=== PATIENT | male | born 2000 | race Caucasian/White ===

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

== ENCOUNTER 2024-07-02 10:00 | Outpatient (AMB) | payer BC, MEDICAID, SELFPAY ==
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
== END 2024-07-03 09:31 | disposition home or self-care (01) ==
LOC: HO.HOP 10:18
PROVIDERS: PCP Pediatrics Adolescent Medicine; Visit Provider Counselor Mental Health
DX: F41.1 Generalized anxiety disorder (principal); F33.1 Major depressive disorder, recurrent, moderate; F43.9 Reaction to severe stress, unspecified
CPT/HCPCS: 90791

== ENCOUNTER → 2024-07-02 10:00 | Outpatient (BNVA) | payer BC, MEDICAID, SELFPAY | PROVIDERS: PCP Pediatrics Adolescent Medicine; Visit Provider Counselor Mental Health ==

== ENCOUNTER → 2024-07-09 11:07 | Outpatient (BNVA) | payer BC, MEDICAID, SELFPAY | PROVIDERS: PCP Pediatrics Adolescent Medicine; Visit Provider Counselor Mental Health ==

== ENCOUNTER → 2024-07-09 11:07 | Outpatient (AMB) | payer BC, MEDICAID, SELFPAY ==
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
== END ==
LOC: HO.HOP 11:07
PROVIDERS: PCP Pediatrics Adolescent Medicine; Visit Provider Counselor Mental Health
DX: F41.1 Generalized anxiety disorder (principal); F33.1 Major depressive disorder, recurrent, moderate; F43.9 Reaction to severe stress, unspecified
CPT/HCPCS: 90837

== ENCOUNTER → 2024-07-11 13:07 | Outpatient (BNVA) | payer BC, MEDICAID, SELFPAY | PROVIDERS: PCP Pediatrics Adolescent Medicine; Visit Provider Counselor Mental Health ==

== ENCOUNTER → 2024-07-11 13:07 | Outpatient (AMB) | payer BC, MEDICAID, SELFPAY ==
--- NOTE | 2024-07-11 13:10 | MHC.WMTHER ---
Intake Intake Visit Reasons: VIDEO OP Therapy Allergies No Known Allergies Allergy (Verified 08/20/21 23:07) [facility] Medical History (Updated 07/03/24 @ 09:29 by Dasha Kessler [facility]) HIV (human immunodeficiency virus infection) Behavioral Health Assessment Weight Management Therapy Therapy Notes Details session Date: 07/11/2024 at 1pm. Service: [id number] Start: 1:00pm. End time: 2:00pm. Subjective Casper presents feeling hopeless about ongoing pain issues and tension at home. Reported he has been trying to prioritize sleeping but has not been possible. Objective PT presents for a counseling session via Telehealth. Patient communicated this morning he was in need for a sooner visit and he was assigned for a sooner visit today. Interventions: Discussed overall functioning. Exploration of feelings and dynamics in household. Processed triggers. Identified negative self-talk mediating symptoms. Completed a gratitude exercise Reflective listening and cognitive challenging/reframing utilized. Developed a coping plan for the weekend targeting increase anxiety due to pain and depressive Sx Assessment/progress Casper was alert, open and engaged.Noted depressed mood and low motivation. Denies any SI and or any other safety concern. He continues being a good advocate for his needs and has asked for support to his father. Plan: Continue with weekly sessions, and provide an additional session at week as needed. Assessment & Plan Assessment & Plan (1) Generalized anxiety disorder: Code(s): F41.1 - Generalized anxiety disorder (2) Major depressive disorder, recurrent episode: Code(s): F33.9 - Major depressive disorder, recurrent, unspecified Qualifiers: Major depression episode severity: moderate Qualified Code(s): F33.1 - Major depressive disorder, recurrent, moderate (3) Trauma and stressor-related disorder: Code(s): F43.9 - Reaction to severe stress, unspecified Plan Next varsha: 07/16/2024 at 11am via telehealth. Telehealth Telehealth Telehealth Platform: [facility] Location of provider rendering services: other ([address], [place], [place]) Location of patient: address on file Patient Identification confirmed using: Name, : Yes Telehealth method: video Patient verbally consented to treatment: Yes Patient verbally consented to billing insurance company: Yes Patient informed of any privacy concerns related to visit: No Minutes spent on Phone/Video with Pt.: 60 Coding Level of Care Code Established Pt Tele Psytx >53 mins ([id number]) Patient Type Established Diagnoses Generalized anxiety disorder F41.1 Moderate episode of recurrent major depressive disorder F33.1 Major depression episode severity: moderate Trauma and stressor-related disorder F43.9 Time Spent (min) 60
== END ==
LOC: HO.HOP 13:07
PROVIDERS: PCP Pediatrics Adolescent Medicine; Visit Provider Counselor Mental Health
DX: F41.1 Generalized anxiety disorder (principal); F33.1 Major depressive disorder, recurrent, moderate; F43.9 Reaction to severe stress, unspecified
CPT/HCPCS: 90837

== ENCOUNTER 2024-07-12 23:18 | Emergency (ER) | payer BC, MEDICAID, SELFPAY ==
--- NOTE | ~2024-07-12 | US_ITS ---
EXAMINATION: US SCROTUM CLINICAL INFORMATION: Pain.. COMPARISON: None available. TECHNIQUE: A sonogram of the scrotum was performed assessing hagan-scale appearance and color Doppler flow. Spectral Doppler analysis of the arterial and venous flow were performed in the testes bilaterally. FINDINGS: RIGHT: Right testicle measures 4.7 x 1.7 x 2.7 cm, volume 11.8 mL. No focal testicular parenchymal lesions are visualized. Spectral Doppler analysis of the arterial and venous flow is normal in the right testis. Right epididymal head is normal in size. No right hydrocele or varicocele is seen. Right epididymal Doppler flow is normal. LEFT: Left testicle measures 4.2 x 2.1 x 2.8 cm, volume 13.3 mL. No focal testicular parenchymal lesions are visualized. Spectral Doppler analysis of the arterial and venous flow is normal in the left testis. There is a 4 mm left epididymal head cyst. No left hydrocele or varicocele is seen. Left epididymal Doppler flow is normal. US/US scrotum IMPRESSION: 1. No evidence of testicular torsion. 2. 4 mm left epididymal head cyst. Electronically signed by: Darrcik Kumar MD 07/13/2024 03:06 AM EDT
--- NOTE | ~2024-07-12 | US_ITS ---
EXAMINATION: US SCROTUM CLINICAL INFORMATION: Pain.. COMPARISON: None available. TECHNIQUE: A sonogram of the scrotum was performed assessing hagan-scale appearance and color Doppler flow. Spectral Doppler analysis of the arterial and venous flow were performed in the testes bilaterally. FINDINGS: RIGHT: Right testicle measures 4.7 x 1.7 x 2.7 cm, volume 11.8 mL. No focal testicular parenchymal lesions are visualized. Spectral Doppler analysis of the arterial and venous flow is normal in the right testis. Right epididymal head is normal in size. No right hydrocele or varicocele is seen. Right epididymal Doppler flow is normal. LEFT: Left testicle measures 4.2 x 2.1 x 2.8 cm, volume 13.3 mL. No focal testicular parenchymal lesions are visualized. Spectral Doppler analysis of the arterial and venous flow is normal in the left testis. There is a 4 mm left epididymal head cyst. No left hydrocele or varicocele is seen. Left epididymal Doppler flow is normal. US/US scrotum doppler IMPRESSION: 1. No evidence of testicular torsion. 2. 4 mm left epididymal head cyst. Electronically signed by: Darrick Kumar MD 07/13/2024 03:06 AM EDT
[2024-07-12 23:24] VITALS: BP 136/88; PULSE 102; RESP 20; TEMP 36.2; O2SAT 97; BMI 25.7
[2024-07-13] MEDS: Ketorolac Tromethamine 30 MG/ML VIAL IM (00:40)
--- NOTE | 2024-07-13 01:01 | ED.MALEGU ---
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 Patient states that he has essentially had chronic scrotal/testicular pain for several years. He follows with Dr. Kalen Brand for Urology at [facility]. Patient states that he has had increased scrotal pain for the last 3 weeks He reports that sometimes his scrotum appears red but other times it seems normal He occasionally has symptoms consistent with a UTI with urinary frequency and burning with urination Patient states that his pain radiates down into his legs and occasionally up into his abdomen but he does not currently have any abdominal or bladder pain Denies any fevers or chills Denies any urethral discharge He reports he has not had any imaging for at least a few years Related Data Allergies Allergy/AdvReac Type Severity Reaction Status Date / Time ciclopirox Allergy Rash Verified 07/12/24 23:27 Review of Systems Constitutional: Constitutional: Denies body ache(s), Denies chills and Denies fever(s) Eyes: Eyes: Denies blurry vision Cardiovascular: Cardiovascular: Denies chest pain and Denies dyspnea Respiratory: Respiratory: Denies dyspnea Gastrointestinal: Gastrointestinal: Denies abdominal pain, Reports nausea and Reports vomiting Genitourinary: Genitourinary: Denies hematuria, Reports genital pain, Reports dysuria, Reports scrotal swelling and Reports other (Scrotal pain) Musculoskeletal: Musculoskeletal: Denies back pain [facility] Past Medical History Medical History (Updated 07/13/24 @ 03:14 by Oumou Fisher MD) HIV (human immunodeficiency virus infection) Social History Social History Advance Directives: No Advance Directives Information Provided: Yes Do you have a plan to hurt others: No Plan Physical Exam Vital Signs: Vital Signs: Last Vital Signs Temp 98.6 F 07/13/24 02:22 Pulse 83 07/13/24 02:22 Resp 16 07/13/24 02:22 BP 123/85 07/13/24 02:22 Pulse Ox 96 08/31/24 02:22 O2 Del Method Room Air 07/13/24 02:22 BMI result Body Mass Index 25.7 Const: General: healthy appearing, comfortable, no acute distress, alert and awake Nutritional Appearance: well nourished Orientation/consciousness: patient oriented x3 HEENT: Head: Yes normocephalic and Yes atraumatic Eyes: Eyelids: Yes eyelids normal Conjunctivae: conjunctivae normal Sclerae: sclerae normal Corneas: corneas normal Pupils: Equal, round and reactive pupils present EOM: EOMs intact bilaterally Neck: Neck: Yes full ROM Resp: Effort & Inspection: normal respiratory effort, able to speak in complete sentences and not labored : Other: Unremarkable circumcised male phallus. There is no apparent scrotal lesions, color change or scrotal edema. Subjective tenderness to palpation of the scrotum bilaterally, no palpable testicular masses. No urethral discharge Skin: General skin exam: elasticity normal Neuro: General: patient oriented x3 Cranial nerves: Yes Equal, round and reactive pupils present and Yes Bilaterally intact EOM present Cognition (Neuro): normal cognition Medications Administered Discontinued Medications Generic Name Dose Route Start Last Admin Trade Name Freq PRN Reason Stop Dose Admin Ketorolac Tromethamine 30 mg 07/13/24 00:22 07/13/24 00:40 Ketorolac Tromethamine 30 Mg/Ml Vial IM 07/13/24 00:23 30 mg ONCE ONE Administration Morphine Sulfate 4 mg 07/13/24 01:12 07/13/24 02:04 Morphine Sulfate 4 Mg/Ml Cartridge IM 07/13/24 01:13 4 mg ONCE ONE Administration Protocol Ondansetron HCl 4 mg 07/13/24 01:12 07/13/24 02:04 Ondansetron Odt 4 Mg Tab.Rapdis TRANSLINGU 07/13/24 01:13 4 mg ONCE ONE Administration Medical Decision Making Medical Decision Making MDM Narrative: 23-year-old male with a 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 He reports associated UTI symptoms. Denies any abdominal pain or flank pain. We will get an ultrasound of the scrotum to rule out testicular torsion. I do not see any indication for labs at this time. We will treat the patient's pain with Toradol IM -I received sign-out from my colleague PA O'Darrell. -ultrasound does not show epididymitis or torsion, patient has a small cyst. -urinalysis negative for UTI -patient is saying that it Toradol and the morphine did not work, requesting more pain medication. Patient given p.o. oxycodone -patient may follow-up with his urologist Differential Diagnosis Differential Diagnoses: The differential diagnosis associated with the presentation includes Red scrotum syndrome Testicular torsion Epididymitis UTI Lab Data Labs: Lab Results 07/13/24 Range/Units 02:19 Urine Color Dark Yellow Urine Appearance Clear Urine pH 6.5 (5.0-9.0) Ur Specific [place] >= 1.030 H (1.005-1.025) Urine Protein Trace (Neg-Trace) mg/dL Urine Glucose (UA) Negative (Negative) mg/dL Urine Ketones Trace (Negative) mg/dL Urine Blood Negative (Negative) Urine Nitrite Negative (Negative) Ur Leukocyte Esterase Negative (Negative) Urine RBC 0-2 (0-2) /HPF Urine WBC 0-5 (0-5) /HPF Ur Squamous Epith Cells 0-2 (0-2) /HPF Urine Bacteria None Seen (None Seen) Hyaline Casts 0-2 (0-2) /LPF Radiology Impression Discussion of test interpretation with radiology: I have reviewed the radiologist's reading. Radiologist Impression: RIGHT: Right testicle measures 4.7 x 1.7 x 2.7 cm, volume 11.8 mL. No focal testicular parenchymal lesions are visualized. Spectral Doppler analysis of the arterial and venous flow is normal in the right testis. Right epididymal head is normal in size. No right hydrocele or varicocele is seen. Right epididymal Doppler flow is normal. LEFT: Left testicle measures 4.2 x 2.1 x 2.8 cm, volume 13.3 mL. No focal testicular parenchymal lesions are visualized. Spectral Doppler analysis of the arterial and venous flow is normal in the left testis. There is a 4 mm left epididymal head cyst. No left hydrocele or varicocele is seen. Left epididymal Doppler flow is normal. US/US scrotum IMPRESSION: 1. No evidence of testicular torsion. 2. 4 mm left epididymal head cyst. Discharge Plan Discharge Clinical Impression: Cyst of epididymis Patient Disposition: Home, Self-Care Instructions: Testicle Pain (ED) Additional Instructions: Please follow-up with your primary care physician tomorrow. If you have any worsening or new symptoms, please return to the emergency room or call 911 Print Language: Slovenian
[2024-07-13] MEDS: Morphine Sulfate 4 MG/ML CARTRIDGE IM (02:04)
[2024-07-13] MEDS: Ondansetron ODT 4 MG TAB.RAPDIS TRANSLINGU (02:04)
[2024-07-13 02:22] VITALS: BP 123/85; PULSE 83; RESP 16; TEMP 37; O2SAT 96
[2024-07-13 02:27] LABS: Appearance Urine Clear; Color Urine Dark Yellow; Glucose Urine UA Negative (Negative); Leukocyte Esterase Urine Negative (Negative); Nitrite Urine Negative (Negative); PH 6.5 (5.0-9.0); Specific Gravity - Urine >= 1.030 (1.005-1.025); Urine Blood Negative (Negative); Urine Ketones Trace mg/dL (Negative); Urine Protein Trace mg/dL (Neg-Trace)
[2024-07-13 02:30] LABS: Bacteria Urine None Seen (None Seen); Hyaline Casts Urine 0-2 /LPF (0-2); RBC Urine 0-2 /HPF (0-2); Squamous Epithelial Cell Urine 0-2 /HPF (0-2); WBC Urine 0-5 /HPF (0-5)
--- NOTE | 2024-07-13 03:12 | PC.NURSE ---
pt states no relief with morphine given per jan. reports pain increased to 7/10. MD aware.
[2024-07-13] MEDS: oxyCODONE HCl Immed Release 5 MG TABLET PO (03:19)
[2024-07-13 03:23] VITALS: BP 123/85; PULSE 83; RESP 16; TEMP 37; O2SAT 96
[2024-07-13 03:54] LABS: CT PCR NOT DETECTED (Not Detect.); NG PCR NOT DETECTED (Not Detect.)
== END 2024-07-13 03:23 | disposition home or self-care (01) ==
PROVIDERS: Physician Assistant; Emergency Provider Emergency Medicine Emergency Medical Services; PCP Pediatrics Adolescent Medicine
DX: N50.3 Cyst of epididymis (principal); N50.82 Scrotal pain; B20 Human immunodeficiency virus [HIV] disease
CPT/HCPCS: 76870; 81001; 87491; 87591; 93975; 96372; 99284; J1885; J2270

== ENCOUNTER → 2024-07-16 11:45 | Outpatient (BNVA) | payer BC, MEDICAID, SELFPAY | PROVIDERS: PCP Pediatrics Adolescent Medicine; Visit Provider Counselor Mental Health ==

== ENCOUNTER 2024-07-16 15:08 | Outpatient (AMB) | payer BC, MEDICAID, SELFPAY ==
--- NOTE | 2024-07-16 15:09 | MHC.OFFVIS ---
Vital Signs 07/16/24 15:17 Height 5 ft 9 in Weight 171 lb 8 oz BMI 25.3 BP 137/80 Blood Pressure Location Lt brachial Position Sitting Respiration 16 Pulse 110 H Pulse Source Pulse Oximeter Pulse Oximetry (%) 96 Oxygen Delivery Method Room Air Intake Visit Reasons: Testicular pain Intake Note: Patient comes in for initial visit. Communication And Outreach Manager: Communication And Outreach Manager Present Accompanied by: Mother Allergies ciclopirox Allergy (Verified 07/16/24 15:46) Rash HPI HPI Testicular pain: Details: Patient is a 23-year-old male with chronic pelvic pain since 2020, presents today for initial evaluation of scrotal pain that has been present since spring. Patient denies any past or recent trauma, injury, or falls. He reports history of right scrotal syndrome and UTI like symptoms with neuropathic pain in his legs and feet as well as his perineal area, especially his left scrotum. Pain is most severe in the evenings which he rates 8/10 in list severe upon waking up, rating it at 3/10. Patient describes his present pain as pulsating, jumping, flushing, shooting, stabbing, cutting, lacerating, pinching, burning, tingling, stinging, tiring, exhausting, sickening, fearful, terrifying, frightful, punishing, radiating and spreading. He was seen at our ER last Monday with negative urinalysis for UTI. Recent scrotum US showed no evidence of testicular torsion and 4 mm left epididymal head cyst. Patient follows with Dr. Rigo Brand for Urology at [facility] for chronic scrotal and testicular pain for several years. Patient reports his scrotum, especially left side appears to be mildly red and tender but at times it seems normal. Patient has tried Toradol, morphine, ketorolac, oxycodone, gabapentin, doxycycline, ketoconazole 2% topical and Zeasorb antifungal powder and was recently started on indomethacin without significant symptom improvement. Patient reports gabapentin has been ineffective at 600 mg t.i.d. and is willing to try pregabalin. Patient is currently undergoing mental health therapy and counseling for anxiety, major depression and PTSD. He is also taking trazodone and duloxetine. Denies recent vaccination, reports his immunizations are up to date. Pain affects his daily activities and functioning, mood, sleep, social interactions and quality of life. Reports sexual dysfunction for the past 8 months due to current symptoms. Patient denies any fever or chills, abdominal or groin pain, urethral or rectal discharge, hematuria, dysuria, back pain, dyspnea, shortness of breath, bladder or bowel dysfunction or saddle anesthesia. Patient reports rare use of alcohol only on special occasions, caffeinated drinks once every 2 weeks and daily medical marijuana for sleep in pain. Denies any illicit substance use. Location: Pelvic pain, left scrotum and testicular pain Duration: Chronic pelvic pain Spring 2020; scrotal Spring 2023 Characteristics of symptom or complaint: Burning, stabbing, tingling, numbness, pulsing, shooting, pinching, radiate Aggravating or associated factors: Heat/cold application, movements, stress Relieving factors: Tried gabapentin, cymbalta, oxycodone, ketorolac, morphine, indomethacin Treatment: Multiple ER, Urology and PCP evals, US scrotum, pelvic PT, cystoscopy, [facility] Medical History (Updated 07/16/24 @ 15:56 by CICI Scott) Chronic pelvic pain in male Cyst of epididymis Testicular pain, left Scrotal pain Trauma and stressor-related disorder Major depressive disorder, recurrent episode Generalized anxiety disorder HIV (human immunodeficiency virus infection) Social History (Updated 07/17/24 @ 07:52 by CICI Scott) Comment: Alcohol occasional Substance Use Type: Marijuana Sexual orientation: Lesbian/Saenz/Homosexual Gender identity: Male Review of Systems Const All systems reviewed & are unremarkable except as noted in HPI and below Physical Exam Vital Signs: Last Vital Signs Pulse 110 H 07/16/24 15:17 Resp 16 07/16/24 15:17 BP 137/80 07/16/24 15:17 Pulse Ox 96 07/16/24 15:17 Oxygen Delivery Method Room Air 07/16/24 15:17 BMI result Body Mass Index 25.3 General: Appears afebrile. No acute distress. Alert and oriented. Mood and affect appropriate. Follows and participates in conversation appropriately. Respiratory effort is unlabored. No cough. Able to transition from sit to stand unassisted. Ambulates with bilaterally normal heel strike and toe off. General: Yes no CVA tenderness Male General Exam: Yes normal external exam, No ecchymosis, No edema, No erythema, No lacerations, No Genital lesions present and Yes tenderness (subjective TTP bilateral scrotum with mild left testicular hypertrophy) Penis: normal penis, circumcised, no ecchymosis, not edematous, no nodules, no swelling, no ulcerations and No Genital lesions present Meatus: no meatla discharge Scrotum: scrotum normal, no ecchymosis, not erythematous, no masses and no scrotal swelling Back/Spine/Pelvis Back: no CVA tenderness Cervical Spine: cervical ROM normal and No Cervical spine tenderness Thoracic/Lumbar Spine: thoracic and lumbar spine normal to inspection, thoraco-lumbar ROM normal, Lasegue's sign negative, straight leg raise negative bilaterally and No lumbar spinal tenderness Pelvis: no buttock tenderness Neuro General: Normal light touch and pain sensation, no focal motor deficits and CN's II-XI intact bilaterally Cognition (Neuro): normal cognition Gait exam (Neuro): Normal gait present Motor exam (neuro): 5/5 motor strength present throughout, no tremor noted and Motor abnormalities not present Sensory Exam: double simultaneous stimulation for sensation normal Results Reviewed Results Reviewed: US SCROTUM 07/13/24 CLINICAL INFORMATION: Pain.. FINDINGS: RIGHT: Right testicle measures 4.7 x 1.7 x 2.7 cm, volume 11.8 mL. No focal testicular parenchymal lesions are visualized. Spectral Doppler analysis of the arterial and venous flow is normal in the right testis. Right epididymal head is normal in size. No right hydrocele or varicocele is seen. Right epididymal Doppler flow is normal. LEFT: Left testicle measures 4.2 x 2.1 x 2.8 cm, volume 13.3 mL. No focal testicular parenchymal lesions are visualized. Spectral Doppler analysis of the arterial and venous flow is normal in the left testis. There is a 4 mm left epididymal head cyst. No left hydrocele or varicocele is seen. Left epididymal Doppler flow is normal. IMPRESSION: 1. No evidence of testicular torsion. 2. 4 mm left epididymal head cyst. Assessment & Plan Assessment & Plan (1) Peripheral neuropathy: Code(s): G62.9 - Polyneuropathy, unspecified Category: Medical (2) Cyst of epididymis: Code(s): N50.3 - Cyst of epididymis Category: Medical (3) Scrotal pain: Code(s): N50.82 - Scrotal pain Category: Medical (4) Testicular pain, left: Code(s): N50.812 - Left testicular pain Category: Medical (5) Chronic pelvic pain in male: Code(s): R10.2 - Pelvic and perineal pain; G89.29 - Other chronic pain Category: Medical Plan Pelvic and sacral MRI to rule out sacral nerve compression and follow up on chronic pelvic pain. Patient will stop gabapentin and start pregabalin 150 mg BID. Side effects and precautions were discussed with patient and his mother. Patient and family have been advised of risks associated with taking this medication in combination with other [employer] depressants or alcohol. Patient was encouraged to continue indomethacin and monitor for its therapeutic effects for next several weeks as well as continue to follow up with his [facility] Urology provider. All questions and concerns have been answered and patient agreed with the treatment plan. Follow-up for MRI results/medication review and sooner as needed. Orders: Orders MR sacrum wo con 07/16/24 G62.9 - Polyneuropathy, unspecified, N50.3 - Cyst of epididymis, N50.812 - Left testicular pain, N50.82 - Scrotal pain MR pelvis wo con 07/16/24 G62.9 - Polyneuropathy, unspecified, G89.29 - Other chronic pain, N50.3 - Cyst of epididymis, N50.812 - Left testicular pain, N50.82 - Scrotal pain, R10.2 - Pelvic and perineal pain Medications: New pregabalin 150 mg PO BID 30 days 60 caps 0RF pain G62.9 - Polyneuropathy, unspecified Coding Level of Care Code New Pt Level 4 (30989) Complex EM visit Add On G2211 Diagnoses Peripheral neuropathy G62.9 Cyst of epididymis N50.3 Scrotal pain N50.82 Testicular pain, left N50.812 Chronic pelvic pain in male R10.2; G89.29
[2024-07-16 15:17] VITALS: BP 137/80; PULSE 110; RESP 16; O2SAT 96; BMI 25.3
== END 2024-07-16 15:37 | disposition home or self-care (01) ==
PROVIDERS: PCP Pediatrics Adolescent Medicine; Visit Provider Nurse Practitioner Family
DX: G62.9 Polyneuropathy, unspecified (principal); N50.3 Cyst of epididymis; N50.82 Scrotal pain; N50.812 Left testicular pain; R10.2 Pelvic and perineal pain; G89.29 Other chronic pain
CPT/HCPCS: 99204

== ENCOUNTER 2024-07-18 11:27 | Outpatient (AMB) | payer BC, MEDICAID, SELFPAY ==
--- NOTE | 2024-07-18 11:30 | MHC.WMTHER ---
Intake Intake Visit Reasons: VIDEO OP Therapy Allergies ciclopirox Allergy (Verified 08/08/24 10:15) Rash [facility] Medical History Chronic pelvic pain in male Cyst of epididymis Testicular pain, left Scrotal pain Trauma and stressor-related disorder Major depressive disorder, recurrent episode Generalized anxiety disorder HIV (human immunodeficiency virus infection) Social History Comment: Alcohol occasional Substance Use Type: Marijuana Sexual orientation: Lesbian/Saenz/Homosexual Gender identity: Male Behavioral Health Assessment Weight Management Therapy Therapy Notes Details PT was rescheduled for today as he was unable to keep his appointment on Monday. He presents for a follow up counseling session via Telehealth. Subjective: Casper reports no changes and feeling very anxious and stressed. Objective Discussed functioning and ongoing challenges. Used CBT based interventions for Sx management also completed tapping exercise with mindfulness and gratitude exercise. Response/Assessment/Plan: Casper responded well to modality, despite feeling hopelessness. Functioning is impaired due to medical issues triggering pain. Also, continues feelings anxious, not sleeping well and depressed. We will continue meeting on a weekly basis. Assessment & Plan Assessment & Plan (1) Generalized anxiety disorder: Code(s): F41.1 - Generalized anxiety disorder (2) Major depressive disorder, recurrent episode: Code(s): F33.9 - Major depressive disorder, recurrent, unspecified Qualifiers: Major depression episode severity: moderate Qualified Code(s): F33.1 - Major depressive disorder, recurrent, moderate (3) Trauma and stressor-related disorder: Code(s): F43.9 - Reaction to severe stress, unspecified Plan Plan: Continue our weekly sessions. Next Jade: 07/23/2024 at 11am, via Telehealth Telehealth Telehealth Telehealth Platform: [employer] Location of provider rendering services: other (home office, [place], [place]) Location of patient: address on file Patient Identification confirmed using: Name, : Yes Telehealth method: video Patient verbally consented to treatment: Yes Patient verbally consented to billing insurance company: Yes Patient informed of any privacy concerns related to visit: Yes Minutes spent on Phone/Video with Pt.: 45 Coding Level of Care Code Established Pt Tele Psytx 45 mins ([id number]) Patient Type Established Diagnoses Generalized anxiety disorder F41.1 Moderate episode of recurrent major depressive disorder F33.1 Major depression episode severity: moderate Trauma and stressor-related disorder F43.9 Time Spent (min) 45 Comment start time: 11:15am, End time: 12:00pm
== END 2024-07-18 12:00 | disposition home or self-care (01) ==
LOC: HO.HOP 11:27
PROVIDERS: PCP Pediatrics Adolescent Medicine; Visit Provider Counselor Mental Health
DX: F41.1 Generalized anxiety disorder (principal); F33.1 Major depressive disorder, recurrent, moderate; F43.9 Reaction to severe stress, unspecified
CPT/HCPCS: 90834

== ENCOUNTER → 2024-07-18 11:27 | Outpatient (BNVA) | payer BC, MEDICAID, SELFPAY | PROVIDERS: PCP Pediatrics Adolescent Medicine; Visit Provider Counselor Mental Health ==

== ENCOUNTER 2024-07-23 11:00 | Outpatient (AMB) | payer BC, MEDICAID, SELFPAY ==
--- NOTE | 2024-07-23 11:18 | A.OFFWM_ITS ---
Intake Intake Visit Reasons: VIDEO OP Therapy Allergies ciclopirox Allergy (Verified 07/16/24 15:46) Rash [facility] Medical History (Updated 07/16/24 @ 15:56 by CICI Scott) Chronic pelvic pain in male Cyst of epididymis Testicular pain, left Scrotal pain Trauma and stressor-related disorder Major depressive disorder, recurrent episode Generalized anxiety disorder HIV (human immunodeficiency virus infection) Social History (Updated 07/17/24 @ 07:52 by CICI Scott) Comment: Alcohol occasional Substance Use Type: Marijuana Sexual orientation: Lesbian/Saenz/Homosexual Gender identity: Male Behavioral Health Assessment Weight Management Therapy Therapy Notes Details PT presents for a follow up visit via Telehealth. Subjective * PT identified that a good sleeps helps his pain levels * He also believes that current medication (Pregabalin) is working so pain is lower and manageable which is positively impacting his mood, thus he has more energy and is functioning better. Objective Today we processed his cycle of responses and triggers associated. We worked about ways to be present and more intentional with his decisions and how he spends money, time, energy. Completed a daily gratitude exercise. Used CBT-based methods. This session is clinically appropriate to address and manage Sx, and to prevent higher level of care. Assessment/Response: * Risk: None reported or identified. * Mental status: Anxious, depressed. Alert, Oriented, talkative. PT as open and engaged, received well feedback and responded well to interventions. Assessment & Plan Assessment & Plan (1) Generalized anxiety disorder: Code(s): F41.1 - Generalized anxiety disorder (2) Major depressive disorder, recurrent episode: Code(s): F33.9 - Major depressive disorder, recurrent, unspecified Qualifiers: Major depression episode severity: moderate Qualified Code(s): F33.1 - Major depressive disorder, recurrent, moderate (3) Trauma and stressor-related disorder: Code(s): F43.9 - Reaction to severe stress, unspecified Plan Follow up as patient requested a second session this week because he notices the differences on his mental health when have 2 sessions per week. Next varsha: 07/25/24 at 10am, via Telehealth Telehealth Telehealth Telehealth [facility]: [facility] Location of provider rendering services: other ([facility] [place], [place]) Location of patient: address on file Patient Identification confirmed using: Name, : Yes Telehealth method: video Patient verbally consented to treatment: Yes Patient verbally consented to billing insurance company: Yes Patient informed of any privacy concerns related to visit: No Minutes spent on Phone/Video with Pt.: 60 Coding Level of Care Code Established Pt Tele Psytx >53 mins ([id number]) Patient Type Established Diagnoses Generalized anxiety disorder F41.1 Moderate episode of recurrent major depressive disorder F33.1 Major depression episode severity: moderate Trauma and stressor-related disorder F43.9 Time Spent (min) 60
== END 2024-07-23 12:00 | disposition home or self-care (01) ==
LOC: HO.HOP 11:37
PROVIDERS: PCP Pediatrics Adolescent Medicine; Visit Provider Counselor Mental Health
DX: F41.1 Generalized anxiety disorder (principal); F33.1 Major depressive disorder, recurrent, moderate; F43.9 Reaction to severe stress, unspecified
CPT/HCPCS: 90837

== ENCOUNTER → 2024-07-23 11:00 | Outpatient (BNVA) | payer BC, MEDICAID, SELFPAY | PROVIDERS: PCP Pediatrics Adolescent Medicine; Visit Provider Counselor Mental Health ==

== ENCOUNTER → 2024-07-25 10:48 | Outpatient (BNVA) | payer BC, MEDICAID, SELFPAY | PROVIDERS: PCP Pediatrics Adolescent Medicine; Visit Provider Counselor Mental Health ==

== ENCOUNTER → 2024-07-25 10:48 | Outpatient (AMB) | payer BC, MEDICAID, SELFPAY ==
--- NOTE | 2024-07-25 10:32 | MHC.WMTHER ---
Intake Intake Visit Reasons: VIDEO OP Therapy Allergies ciclopirox Allergy (Verified 07/16/24 15:46) Rash [facility] Medical History (Updated 07/16/24 @ 15:56 by CICI Scott) Chronic pelvic pain in male Cyst of epididymis Testicular pain, left Scrotal pain Trauma and stressor-related disorder Major depressive disorder, recurrent episode Generalized anxiety disorder HIV (human immunodeficiency virus infection) Social History (Updated 07/17/24 @ 07:52 by CICI Scott) Comment: Alcohol occasional Substance Use Type: Marijuana Sexual orientation: Lesbian/Saenz/Homosexual Gender identity: Male Behavioral Health Assessment Weight Management Therapy Therapy Notes Details Casper presents for a follow up visit via Telehealth. PT connected late so we only meet for 30 minutes today. He was seen on Monday, and requested a second appointment his week due to increased anxiety/depression the past couple weeks due to worsening medical issues. Subjective: Casper reports he has been feeling well in regards his pain. States he is slight less worry but at the same time his mind is spiraling and feeling overwhelmed at times. He continues feeling sad and bad feelings/thoughts about his future, hopeless at lot and not feeling any kirstin. Objective: Discussed overall functioning and progress/changes/updates since last seen. Reflective listening implemented. Worked on symptom management. Continue working on gratitude and relaxation-based methods for deregulation and increased tension due to high anxiety/stress. This session is clinically recommended to prevent higher level of care, maintain gains and address increased functioning issues. Assessment/Response: PT was alert, engaged and mostly calm. Reported feeling depressed and worried. Physical functioning moderately impaired per his reports. He was open, engaged and responded well to interventions. Assessment & Plan Assessment & Plan (1) Generalized anxiety disorder: Code(s): F41.1 - Generalized anxiety disorder (2) Major depressive disorder, recurrent episode: Code(s): F33.9 - Major depressive disorder, recurrent, unspecified Qualifiers: Major depression episode severity: moderate Qualified Code(s): F33.1 - Major depressive disorder, recurrent, moderate (3) Trauma and stressor-related disorder: Code(s): F43.9 - Reaction to severe stress, unspecified Plan Plan: Continue our weekly sessions. Clinician emailed client 2 resources to implement progressive muscle relaxation and has advised hin to try it 2 times at day daily even if feeling well. Next Jade: 07/30/2024 at 11am, via Telehealth Coding Level of Care Code Established Pt Tele Psytx 30 mins (70950) Patient Type Established Diagnoses Generalized anxiety disorder F41.1 Moderate episode of recurrent major depressive disorder F33.1 Major depression episode severity: moderate Trauma and stressor-related disorder F43.9 Time Spent (min) 30 Comment Start time: 10:30am - End time: 11:00am
== END ==
LOC: HO.HOP 10:48
PROVIDERS: PCP Pediatrics Adolescent Medicine; Visit Provider Counselor Mental Health
DX: F41.1 Generalized anxiety disorder (principal); F33.1 Major depressive disorder, recurrent, moderate; F43.9 Reaction to severe stress, unspecified
CPT/HCPCS: 90832

== ENCOUNTER → 2024-07-30 11:18 | Outpatient (BNVA) | payer BC, MEDICAID, SELFPAY | PROVIDERS: PCP Pediatrics Adolescent Medicine; Visit Provider Counselor Mental Health ==

== ENCOUNTER → 2024-07-30 11:18 | Outpatient (AMB) | payer BC, MEDICAID, SELFPAY ==
--- NOTE | 2024-07-30 11:50 | MHC.WMTHER ---
Intake Intake Visit Reasons: VIDEO OP Therapy Allergies ciclopirox Allergy (Verified 07/16/24 15:46) [facility] Medical History (Updated 07/16/24 @ 15:56 by CICI Scott) Chronic pelvic pain in male Cyst of epididymis Testicular pain, left Scrotal pain Trauma and stressor-related disorder Major depressive disorder, recurrent episode Generalized anxiety disorder HIV (human immunodeficiency virus infection) Social History (Updated 07/17/24 @ 07:52 by CICI Scott) Comment: Alcohol occasional Substance Use Type: Marijuana Sexual orientation: Lesbian/Saenz/Homosexual Gender identity: Male Behavioral Health Assessment Weight Management Therapy Therapy Notes Details Subjective: PT reports he has been feeling with panic Like Sx, pain is manageable. He is back at not sleeping that good. But stated that overall things are better. Objective: PT presents for a follow up counseling session via Telehealth. We processed presented Sx of panic and discussed possible triggers and panic Sx as response. Discussed anxiety patterns and body responses when things are well , which is an unknown thing when a person is deregulated for long periods of time. Provided techniques to continue engaging in relaxation methods as well of mindfulness to continue working on replace stress responses for calm-responses. Our focus today was Sx management and maintain gains. Assessment/Response: Mental status: alert, oriented X3, open. Calm and aythymic. Mildly anxious. Reports moderately functioning impairments due to active pain. Risk reported/identified: None PT responded well to interventions. Plan: Continue with weekly sessions. Assessment & Plan Assessment & Plan (1) Generalized anxiety disorder: Code(s): F41.1 - Generalized anxiety disorder (2) Major depressive disorder, recurrent episode: Code(s): F33.9 - Major depressive disorder, recurrent, unspecified Qualifiers: Major depression episode severity: moderate Qualified Code(s): F33.1 - Major depressive disorder, recurrent, moderate (3) Trauma and stressor-related disorder: Code(s): F43.9 - Reaction to severe stress, unspecified Plan Plan: Continue our weekly sessions. Next Jade: 08/06/2024 at 11am, via Telehealth Telehealth Telehealth Telehealth Platform: [facility] Location of provider rendering services: other (home office, [place], [place]) Location of patient: address on file Patient Identification confirmed using: Name, : Yes Telehealth method: video Patient verbally consented to treatment: Yes Patient verbally consented to billing insurance company: Yes Patient informed of any privacy concerns related to visit: No Minutes spent on Phone/Video with Pt.: 60 Coding Level of Care Code Established Pt Tele Psytx >53 mins (75419) Patient Type Established Diagnoses Generalized anxiety disorder F41.1 Moderate episode of recurrent major depressive disorder F33.1 Major depression episode severity: moderate Trauma and stressor-related disorder F43.9 Time Spent (min) 60
== END ==
LOC: HO.HOP 11:18
PROVIDERS: PCP Pediatrics Adolescent Medicine; Visit Provider Counselor Mental Health
DX: F41.1 Generalized anxiety disorder (principal); F33.1 Major depressive disorder, recurrent, moderate; F43.9 Reaction to severe stress, unspecified
CPT/HCPCS: 90837

== ENCOUNTER → 2024-08-08 08:59 | Outpatient (BNVA) | payer BC, MEDICAID, SELFPAY | PROVIDERS: PCP Pediatrics Adolescent Medicine; Visit Provider Counselor Mental Health ==

== ENCOUNTER → 2024-08-08 08:59 | Outpatient (AMB) | payer BC, MEDICAID, SELFPAY ==
--- NOTE | 2024-08-08 08:55 | MHC.WMTHER ---
Intake Intake Visit Reasons: VIDEO OP Therapy Allergies ciclopirox Allergy (Verified 08/08/24 10:15) Rash [facility] Medical History Chronic pelvic pain in male Cyst of epididymis Testicular pain, left Scrotal pain Trauma and stressor-related disorder Major depressive disorder, recurrent episode Generalized anxiety disorder HIV (human immunodeficiency virus infection) Social History Comment: Alcohol occasional Substance Use Type: Marijuana Sexual orientation: Lesbian/Saenz/Homosexual Gender identity: Male Behavioral Health Assessment Weight Management Therapy Therapy Notes Details Subjective: PT reports he's not desperate but dealing with moderate anxiety in general. Objective: PT presents for a follow up visit via Telehealth. Discussed functioning and routine . Processed Sx of anxiety, triggers and different. Used Person centered approach, reflective listening and Stress-reduction skills for Sx management. PT was emailed a list of available BH prescribers for him to look for a prescriber. Assessment/Response: Mental status: Anxious, sadness, hopeless feelings. functioning impaired due to medical issues and high anxiety. Risk reported/identified: none. PT was engaged. Responded well to interventions. Session necesary to stabilize Sx, address major health challenges severely impacting his mental health. Assessment & Plan Assessment & Plan (1) Generalized anxiety disorder: Code(s): F41.1 - Generalized anxiety disorder (2) Major depressive disorder, recurrent episode: Code(s): F33.9 - Major depressive disorder, recurrent, unspecified Qualifiers: Major depression episode severity: moderate Qualified Code(s): F33.1 - Major depressive disorder, recurrent, moderate (3) Trauma and stressor-related disorder: Code(s): F43.9 - Reaction to severe stress, unspecified Plan Continue weekly sessions and same Tx plan. Encouraged to use strategies provided on a daily basis. Telehealth [facility] Location of provider rendering services: other ([place] office, [place], [place]) Location of patient: address on file Patient Identification confirmed using: Name, : Yes Telehealth method: video Patient verbally consented to treatment: Yes Patient verbally consented to billing insurance company: Yes Patient informed of any privacy concerns related to visit: No Minutes spent on Phone/Video with Pt.: 65 Coding Level of Care Code Established Pt Tele Psytx >53 mins ([id number]) Patient Type Established Diagnoses Generalized anxiety disorder F41.1 Moderate episode of recurrent major depressive disorder F33.1 Major depression episode severity: moderate Trauma and stressor-related disorder F43.9 Time Spent (min) 65 Comment Start time: 8:55am, End time: 10:00am
== END ==
LOC: HO.HOP 08:59
PROVIDERS: PCP Pediatrics Adolescent Medicine; Visit Provider Counselor Mental Health
DX: F41.1 Generalized anxiety disorder (principal); F33.1 Major depressive disorder, recurrent, moderate; F43.9 Reaction to severe stress, unspecified
CPT/HCPCS: 90837

== ENCOUNTER 2024-08-08 10:06 | Outpatient (AMB) | payer BC, MEDICAID, SELFPAY ==
--- NOTE | 2024-08-08 10:07 | MHC.OFFVIS ---
Vital Signs 08/08/24 10:10 Height 5 ft 9 in Weight 176 lb 2 oz BMI 26.0 BP 122/79 Blood Pressure Location Lt brachial Position Sitting Pulse 83 Pulse Source Pulse Oximeter Pulse Oximetry (%) 100 Oxygen Delivery Method Room Air Intake Visit Reasons: MRI follow up Intake Note: Pain today 05/22 Teacher Early Childhood Development Required: No Rehabilitation Assistant: Rehabilitation Assistant offered & declined Accompanied by: Self / Same As Patient Allergies ciclopirox Allergy (Verified 08/08/24 10:15) Rash HPI Comments Details: Patient presents today to discuss recent pelvic and sacrum/coccyx MRI results and medication review. Patient reports pregabalin is well tolerated without effects. 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 Patient also reports he has pending evaluation at [facility] on 09/26/24. No scheduled follow up with his Urologist, Dr. Brand. Denies any recent cough, cold, infection, fever, any significant changes in her medical history, medications or recent hospitalizations. PRIOR: Patient is a 23-year-old male with chronic pelvic pain since 2020, presents today for initial evaluation of scrotal pain that has been present since spring. Patient denies any past or recent trauma, injury, or falls. He reports history of right scrotal syndrome and UTI like symptoms with neuropathic pain in his legs and feet as well as his perineal area, especially his left scrotum. Pain is most severe in the evenings which he rates 8/10 in list severe upon waking up, rating it at 3/10. Patient describes his present pain as pulsating, jumping, flushing, shooting, stabbing, cutting, lacerating, pinching, burning, tingling, stinging, tiring, exhausting, sickening, fearful, terrifying, frightful, punishing, radiating and spreading. He was seen at our ER last Monday with negative urinalysis for UTI. Recent scrotum US showed no evidence of testicular torsion and 4 mm left epididymal head cyst. Patient follows with Dr. Rigo Brand for Urology at [facility] for chronic scrotal and testicular pain for several years. Patient reports his scrotum, especially left side appears to be mildly red and tender but at times it seems normal. Patient has tried Toradol, morphine, ketorolac, oxycodone, gabapentin, doxycycline, ketoconazole 2% topical and Zeasorb antifungal powder and was recently started on indomethacin without significant symptom improvement. Patient reports gabapentin has been ineffective at 600 mg t.i.d. and is willing to try pregabalin. Patient is currently undergoing mental health therapy and counseling for anxiety, major depression and PTSD. He is also taking trazodone and duloxetine. Denies recent vaccination, reports his immunizations are up to date. Pain affects his daily activities and functioning, mood, sleep, social interactions and quality of life. Reports sexual dysfunction for the past 8 months due to current symptoms. Patient denies any fever or chills, abdominal or groin pain, urethral or rectal discharge, hematuria, dysuria, back pain, dyspnea, shortness of breath, bladder or bowel dysfunction or saddle anesthesia. Patient reports rare use of alcohol only on special occasions, caffeinated drinks once every 2 weeks and daily medical marijuana for sleep in pain. Denies any illicit substance use. Location: Pelvic pain, left scrotum and testicular pain Duration: Chronic pelvic pain Spring 2020; scrotal Spring 2023 Characteristics of symptom or complaint: Burning, stabbing, tingling, numbness, pulsing, shooting, pinching, radiate Aggravating or associated factors: Heat/cold application, movements, stress Relieving factors: Tried gabapentin, cymbalta, oxycodone, ketorolac, morphine, indomethacin Treatment: Multiple ER, Urology and PCP k[facility], scrotum, pelvic PT, cystoscopy, TENS PFSH Medical History Chronic pelvic pain in male Cyst of epididymis Testicular pain, left Scrotal pain Trauma and stressor-related disorder Major depressive disorder, recurrent episode Generalized anxiety disorder HIV (human immunodeficiency virus infection) Social History Comment: Alcohol occasional Substance Use Type: Marijuana Sexual orientation: Lesbian/Saenz/Homosexual Gender identity: Male Review of Systems Const All systems reviewed & are unremarkable except as noted in HPI and below Physical Exam General: Appears afebrile. Alert and oriented. Mood and affect appropriate. Follows and participates in conversation appropriately. Respiratory effort is unlabored. No cough. No nasal discharge. Able to transition from sit to stand unassisted. Ambulates with bilaterally normal heel strike and toe off. Results Reviewed Results Reviewed: MR Sacrum/Coccyx W/O contrast 07/24/24 at [facility] INDICATION: Polyneuropathy, unspecified. Left testicular and scrotal pain. Pelvic and perineal pain. Other chronic pain. TECHNIQUE: Enhanced multiplanar, multisequence MR imaging of the sacrum/coccyx. COMPARISON: MR pelvis 07/24/2024 (same day; images only). US scrotum/testicles 05/11/2021. US abdomen 05/12/2021 (images only). FINDINGS: Visualized portions of the lower lumbar spine, sacrum and coccyx appear unremarkable. No evidence of fracture. No mass lesion. No abnormal bone marrow signal is identified. IMPRESSION: No acute findings. Normal examination. MR Pelvis W/O Contrast 07/24/24 at [facility] INDICATION: Polyneuropathy; cyst of epididymis, scrotal pain; left testicular pain; pelvis and perineal pain; other chronic pain. TECHNIQUE: Multiplanar unenhanced MR imaging was performed through the pelvis. COMPARISON: US abdomen 05/12/2021. FINDINGS: The bladder and urethra are unremarkable. No bladder lesions are seen. The prostate is not enlarged. There are no masses. No lymphadenopathy or ascites. T1 and T2 signal in marrow and soft tissues is normal. No inguinal adenopathy. IMPRESSION: MR of the pelvis is within normal limits. Visualized scrotal sac contents are unremarkable except for small hydroceles. US SCROTUM 07/13/24 CLINICAL INFORMATION: Pain.. FINDINGS: RIGHT: Right testicle measures 4.7 x 1.7 x 2.7 cm, volume 11.8 mL. No focal testicular parenchymal lesions are visualized. Spectral Doppler analysis of the arterial and venous flow is normal in the right testis. Right epididymal head is normal in size. No right hydrocele or varicocele is seen. Right epididymal Doppler flow is normal. LEFT: Left testicle measures 4.2 x 2.1 x 2.8 cm, volume 13.3 mL. No focal testicular parenchymal lesions are visualized. Spectral Doppler analysis of the arterial and venous flow is normal in the left testis. There is a 4 mm left epididymal head cyst. No left hydrocele or varicocele is seen. Left epididymal Doppler flow is normal. IMPRESSION: 1. No evidence of testicular torsion. 2. 4 mm left epididymal head cyst. Assessment & Plan Assessment & Plan (1) Peripheral neuropathy: Code(s): G62.9 - Polyneuropathy, unspecified Category: Medical (2) Cyst of epididymis: Code(s): N50.3 - Cyst of epididymis Category: Medical (3) Scrotal pain: Code(s): N50.82 - Scrotal pain Category: Medical (4) Testicular pain, left: Code(s): N50.812 - Left testicular pain Category: Medical (5) Chronic pelvic pain in male: Code(s): R10.2 - Pelvic and perineal pain; G89.29 - Other chronic pain Category: Medical (6) Hydrocele: Code(s): N43.3 - Hydrocele, unspecified Category: Medical Plan Pelvic and sacral/coccyx MRI results were reviewed with patient which are normal except for small hydroceles. Patient is encouraged to follow up with his Urologist for surgical evaluation. Refill pregabalin 150 mg BID. Patient has been advised of risks associated with taking this medication in combination with other MEDICAL OFFICE ASSISTANT INSTRUCTOR depressants or alcohol. Patient has pending evaluation at [facility] on 09/26/24. All questions and concerns have been answered and patient agreed with the treatment plan. Follow-up as needed. Medications: Refilled pregabalin 150 mg PO BID 30 days 60 caps 1RF pain G62.9 - Polyneuropathy, unspecified Coding Level of Care Code Est Pt Level 4 (50435) Complex EM visit Add On G2211 Diagnoses Peripheral neuropathy G62.9 Cyst of epididymis N50.3 Scrotal pain N50.82 Testicular pain, left N50.812 Chronic pelvic pain in male R10.2; G89.29 Hydrocele N43.3
[2024-08-08 10:10] VITALS: BP 122/79; PULSE 83; O2SAT 100; BMI 26.0
== END 2024-08-08 10:35 | disposition home or self-care (01) ==
PROVIDERS: PCP Pediatrics Adolescent Medicine; Visit Provider Nurse Practitioner Family
DX: G62.9 Polyneuropathy, unspecified (principal); N50.3 Cyst of epididymis; N50.82 Scrotal pain; N50.812 Left testicular pain; R10.2 Pelvic and perineal pain; G89.29 Other chronic pain; N43.3 Hydrocele, unspecified
CPT/HCPCS: 99214

== ENCOUNTER 2024-08-13 11:15 | Outpatient (AMB) | payer BC, MEDICAID, SELFPAY ==
--- NOTE | 2024-08-13 11:15 | A.OFFWM_ITS ---
Intake Intake Visit Reasons: VIDEO OP Therapy Allergies ciclopirox Allergy (Verified 08/08/24 10:15) Rash [facility] Medical History Chronic pelvic pain in male Cyst of epididymis Testicular pain, left Scrotal pain Trauma and stressor-related disorder Major depressive disorder, recurrent episode Generalized anxiety disorder HIV (human immunodeficiency virus infection) Social History Comment: Alcohol occasional Substance Use Type: Marijuana Sexual orientation: Lesbian/Saenz/Homosexual Gender identity: Male Behavioral Health Assessment Weight Management Therapy Therapy Notes Details Subjective: PT reports feeling discouraged today after recent jade at pain management clinic. Also, reports feeling some anger about his life stage, as he's dealing with things other he knows are not dealing with. Objective: PT presents for a follow up visit via Telehealth. Active and sportive therapy, used reflective listening. Validated and normalized feelings. Used CBT-based interventions and reflected on things within Vs out of our control while using cognitive re-framing for negative self-talk. Completed a mindfulness exercise followed by a gratitude activity. Assessment/Response: * Mental status: depressed, * Risk reported/identified: none PT was engaged and cooperative. Techniques used seemed effective and patient responded well to intervention. Plan: Continue weekly sessions. Assessment & Plan Assessment & Plan (1) Generalized anxiety disorder: Code(s): F41.1 - Generalized anxiety disorder (2) Major depressive disorder, recurrent episode: Code(s): F33.9 - Major depressive disorder, recurrent, unspecified Qualifiers: Major depression episode severity: moderate Qualified Code(s): F33.1 - Major depressive disorder, recurrent, moderate (3) Trauma and stressor-related disorder: Code(s): F43.9 - Reaction to severe stress, unspecified Plan Plan: Continue our weekly sessions. Next Jade: 08/20/24 at 11am, via Telehealth Telehealth [facility]health [facility] Location of provider rendering services: other ([facility], [place], [place]) Location of patient: address on file Patient Identification confirmed using: Name, : Yes Telehealth method: video Patient verbally consented to treatment: Yes Patient verbally consented to billing insurance company: Yes Patient informed of any privacy concerns related to visit: No Minutes spent on Phone/Video with Pt.: 45 Coding Level of Care Code Established Pt Tele Psytx 45 mins ([id number]) Patient Type Established Diagnoses Generalized anxiety disorder F41.1 Moderate episode of recurrent major depressive disorder F33.1 Major depression episode severity: moderate Trauma and stressor-related disorder F43.9 Time Spent (min) 45 Comment Start time: 11:15am - End time: 12:00pm
== END 2024-08-13 12:00 | disposition home or self-care (01) ==
LOC: HO.HOP 11:18
PROVIDERS: PCP Pediatrics Adolescent Medicine; Visit Provider Counselor Mental Health
DX: F41.1 Generalized anxiety disorder (principal); F33.1 Major depressive disorder, recurrent, moderate; F43.9 Reaction to severe stress, unspecified
CPT/HCPCS: 90834

== ENCOUNTER → 2024-08-13 11:15 | Outpatient (BNVA) | payer BC, MEDICAID, SELFPAY | PROVIDERS: PCP Pediatrics Adolescent Medicine; Visit Provider Counselor Mental Health ==

== ENCOUNTER → 2024-08-27 11:28 | Outpatient (BNVA) | payer BC, MEDICAID, SELFPAY | PROVIDERS: PCP Pediatrics Adolescent Medicine; Visit Provider Counselor Mental Health ==

== ENCOUNTER → 2024-08-27 11:28 | Outpatient (AMB) | payer BC, MEDICAID, SELFPAY ==
--- NOTE | 2024-08-27 11:00 | A.OFFWM_ITS ---
Intake Intake Visit Reasons: VIDEO OP Therapy Allergies ciclopirox Allergy (Verified 08/08/24 10:15) Rash [facility] Medical History Chronic pelvic pain in male Cyst of epididymis Testicular pain, left Scrotal pain Trauma and stressor-related disorder Major depressive disorder, recurrent episode Generalized anxiety disorder HIV (human immunodeficiency virus infection) Social History Comment: Alcohol occasional Substance Use Type: Marijuana Sexual orientation: Lesbian/Saenz/Homosexual Gender identity: Male Behavioral Health Assessment Weight Management Therapy Therapy Notes Details Subjective: Feeling better in general regards the pain, however he has been struggling with his eyes. He also reports a recent conflict with a friend he wants to get support with. He continues attending physical therapy and feeling it's helping. Objective: PT presents for a follow up visit via Telehealth. CPT implemented. Processed events re: friendship, provided feedback, explored different scenarios and role played different approaches to handle event. Discussed dynamics at home and ways to work toward having a better life quality understanding physical challenges. Constructive feedback Homework. Assessment/Response: * Mental status: * Risk reported/identified: None. PT was engaged and cooperative. Techniques used seemed effective and patient responded well to intervention. Plan: Continue weekly sessions. Assessment & Plan Assessment & Plan (1) Generalized anxiety disorder: Code(s): F41.1 - Generalized anxiety disorder (2) Major depressive disorder, recurrent episode: Code(s): F33.9 - Major depressive disorder, recurrent, unspecified Qualifiers: Major depression episode severity: moderate Qualified Code(s): F33.1 - Major depressive disorder, recurrent, moderate (3) Trauma and stressor-related disorder: Code(s): F43.9 - Reaction to severe stress, unspecified Plan Next varsha: 09/03 at 11am - TH Telehealth Telehealth Telehealth Platform: [facility] Location of provider rendering services: other ([place] office, [place], [place]) Location of patient: address on file Patient Identification confirmed using: Name, : Yes Telehealth method: video Patient verbally consented to treatment: Yes Patient verbally consented to billing insurance company: Yes Patient informed of any privacy concerns related to visit: No Minutes spent on Phone/Video with Pt.: 60 Coding Level of Care Code Established Pt Tele Psytx >53 mins ([id number]) Patient Type Established Diagnoses Generalized anxiety disorder F41.1 Moderate episode of recurrent major depressive disorder F33.1 Major depression episode severity: moderate Trauma and stressor-related disorder F43.9 Time Spent (min) 60 Comment Start time: 11:00 - End time: 12:00pm
== END ==
LOC: HO.HOP 11:28
PROVIDERS: PCP Pediatrics Adolescent Medicine; Visit Provider Counselor Mental Health
DX: F41.1 Generalized anxiety disorder (principal); F33.1 Major depressive disorder, recurrent, moderate; F43.9 Reaction to severe stress, unspecified
CPT/HCPCS: 90837

== ENCOUNTER 2024-09-03 11:00 | Outpatient (AMB) | payer BC, MEDICAID, SELFPAY ==
--- NOTE | 2024-09-03 11:00 | A.OFFWM_ITS ---
Intake Intake Visit Reasons: VIDEO OP Therapy Allergies ciclopirox Allergy (Intermediate, Verified 10/27/24 10:56) Rash gluten Adverse Reaction (Mild, Verified 10/27/24 16:52) Itching lactose Adverse Reaction (Mild, Verified 10/27/24 16:52) Itching PFSH Medical History Chronic pelvic pain in male Cyst of epididymis Testicular pain, left Scrotal pain Trauma and stressor-related disorder Major depressive disorder, recurrent episode Generalized anxiety disorder HIV (human immunodeficiency virus infection) Social History Comment: Alcohol occasional Smoked in Last 30 Days: No Use of substances other than those prescribed or required for medical reasons: Yes Substance Use Type: Marijuana Substance Use Frequency: Daily Last Used Substance: Just Prior to Admission Advance Directives: No Advance Directives Information Provided: Yes Do you have a plan to hurt others: No Plan Sexual orientation: Lesbian/Saenz/Homosexual Gender identity: Male Behavioral Health Assessment Weight Management Therapy Therapy Notes Details Subjective: PT presents not feeling well physically. Meet with his PCP Last Monday and he modified the Lyrica, instead of 2 (150mg each) at day he has to take a 100mg pill 3 times at day. Also saw his eye Dr last week and has been getting some support with eye issues he was presenting with. Objective: PT presents for a f/up visit via Telehealth. - Discussed functioning and ongoing challenges. Supported client with stress management techniques (grounding/tapping method). Processed feelings and ongoing negative self-talk. Validated feelings. Explored ways to reframe negative self-talk Used a gratitude exercise and reviewed coping skills. Used CBT/CPT techniques for Sx management. Assessment/Response: * Mental status: tired, mod-high pain. Mild depression, mod anxiety. Moderate functioning issues due to pain. * Risk reported/identified: None. PT active in session, responded well to interventions. Will continue sessions on a wekly basis. Assessment & Plan Assessment & Plan (1) Generalized anxiety disorder: Code(s): F41.1 - Generalized anxiety disorder (2) Major depressive disorder, recurrent episode: Code(s): F33.9 - Major depressive disorder, recurrent, unspecified Qualifiers: Major depression episode severity: moderate Qualified Code(s): F33.1 - Major depressive disorder, recurrent, moderate (3) Trauma and stressor-related disorder: Code(s): F43.9 - Reaction to severe stress, unspecified Plan Weekly sessions. Next varsha: 09/10/2024 at 11am, TH. Telehealth Telehealth Telehealth Platform: [employer] Location of provider rendering services: other Location of patient: address on file Patient Identification confirmed using: Name, : Yes Telehealth method: video Patient verbally consented to treatment: Yes Patient verbally consented to billing insurance company: Yes Patient informed of any privacy concerns related to visit: Yes Minutes spent on Phone/Video with Pt.: 60 Coding Level of Care Code Established Pt Tele Psytx >53 mins ([id number]) Patient Type Established Diagnoses Generalized anxiety disorder F41.1 Moderate episode of recurrent major depressive disorder F33.1 Major depression episode severity: moderate Trauma and stressor-related disorder F43.9 Time Spent (min) 60
== END 2024-09-03 12:00 | disposition home or self-care (01) ==
LOC: HO.HOP 11:33
PROVIDERS: PCP Pediatrics Adolescent Medicine; Visit Provider Counselor Mental Health
DX: F41.1 Generalized anxiety disorder (principal); F33.1 Major depressive disorder, recurrent, moderate; F43.9 Reaction to severe stress, unspecified
CPT/HCPCS: 90837

== ENCOUNTER → 2024-09-03 11:00 | Outpatient (BNVA) | payer BC, MEDICAID, SELFPAY | PROVIDERS: PCP Pediatrics Adolescent Medicine; Visit Provider Counselor Mental Health ==

== ENCOUNTER → 2024-09-10 11:19 | Outpatient (AMB) | payer BC, MEDICAID, SELFPAY ==
--- NOTE | 2024-09-10 11:15 | MHC.WMTHER ---
Intake Intake Visit Reasons: VIDEO OP Therapy Allergies ciclopirox Allergy (Verified 08/08/24 10:15) Rash [facility] Medical History Chronic pelvic pain in male Cyst of epididymis Testicular pain, left Scrotal pain Trauma and stressor-related disorder Major depressive disorder, recurrent episode Generalized anxiety disorder HIV (human immunodeficiency virus infection) Social History Comment: Alcohol occasional Substance Use Type: Marijuana Sexual orientation: Lesbian/Saenz/Homosexual Gender identity: Male Behavioral Health Assessment Weight Management Therapy Therapy Notes Details Subjective: PT reports that his Pregabalin was increased from 300Mg at day to 40Mg at day and his pain and functioning have improved noticeably, he is able to do more things He continues doing Physical therapy. PT reports he has a lot of anxiety preventing him to engage in things he likes and wished to do days ago. Objective: PT presents for a follow up visit via Telehealth. discussed functioning, challenges and progress. Behavioral activation plan. Created a wish list with things he hoped and/or wishes to do. Used CBT, CPT and person centered interventions to process and manage Symptoms. Assessment/Response: Mental status: Tired, mild sad but not depressed, anxious. Alert, oriented X3. Moderately functioning impairments due to physical health/pain. Risk reported/identified: None. PT was engaged and cooperative. Techniques used seemed effective and patient responded well to intervention. Assessment & Plan Assessment & Plan (1) Generalized anxiety disorder: Code(s): F41.1 - Generalized anxiety disorder (2) Major depressive disorder, recurrent episode: Code(s): F33.9 - Major depressive disorder, recurrent, unspecified Qualifiers: Major depression episode severity: moderate Qualified Code(s): F33.1 - Major depressive disorder, recurrent, moderate (3) Trauma and stressor-related disorder: Code(s): F43.9 - Reaction to severe stress, unspecified Plan Next varsha: 09/17/2024 at 10am - TH Telehealth Telehealth Telehealth Platform: [facility] Location of provider rendering services: other ([place] office, [place], [place]) Location of patient: address on file Patient Identification confirmed using: Name, : Yes Telehealth method: video Patient verbally consented to treatment: Yes Patient verbally consented to billing insurance company: Yes Patient informed of any privacy concerns related to visit: No Minutes spent on Phone/Video with Pt.: 45 Coding Level of Care Code Established Pt Tele Psytx 45 mins ([id number]) Patient Type Established Diagnoses Generalized anxiety disorder F41.1 Moderate episode of recurrent major depressive disorder F33.1 Major depression episode severity: moderate Trauma and stressor-related disorder F43.9 Time Spent (min) 45 Comment Start time: 11:15, End time: 12pm
== END ==
LOC: HO.HOP 11:19
PROVIDERS: PCP Pediatrics Adolescent Medicine; Visit Provider Counselor Mental Health
DX: F41.1 Generalized anxiety disorder (principal); F33.1 Major depressive disorder, recurrent, moderate; F43.9 Reaction to severe stress, unspecified
CPT/HCPCS: 90834

== ENCOUNTER → 2024-09-10 11:19 | Outpatient (BNVA) | payer BC, MEDICAID, SELFPAY | PROVIDERS: PCP Pediatrics Adolescent Medicine; Visit Provider Counselor Mental Health ==

== ENCOUNTER 2024-09-17 10:27 | Outpatient (AMB) | payer BC, MEDICAID, SELFPAY ==
--- NOTE | 2024-09-17 10:15 | A.OFFWM_ITS ---
Intake Intake Visit Reasons: VIDEO OP Therapy Allergies ciclopirox Allergy (Intermediate, Verified 10/27/24 10:56) Rash gluten Adverse Reaction (Mild, Verified 10/27/24 16:52) Itching lactose Adverse Reaction (Mild, Verified 10/27/24 16:52) Itching PFSH Medical History Chronic pelvic pain in male Cyst of epididymis Testicular pain, left Scrotal pain Trauma and stressor-related disorder Major depressive disorder, recurrent episode Generalized anxiety disorder HIV (human immunodeficiency virus infection) Social History Comment: Alcohol occasional Smoked in Last 30 Days: No Use of substances other than those prescribed or required for medical reasons: Yes Substance Use Type: Marijuana Substance Use Frequency: Daily Last Used Substance: Just Prior to Admission Advance Directives: No Advance Directives Information Provided: Yes Do you have a plan to hurt others: No Plan Sexual orientation: Lesbian/Saenz/Homosexual Gender identity: Male Behavioral Health Assessment Weight Management Therapy Therapy Notes Details Subjective: PT reports he has been stressed and struggling as pain levels have increased. He has been researching multiple medical offices searching for specialist for his concerns to get answers and better care. Objective: PT presents for a follow up visit via Telehealth. - Processed functioning issues, Symptoms and challenges. Used CBT to challenge anxious thoughts and gently reflected on how certain behaviors might be negatively reinforcing and/or increasing anxiety. Worked in a plan to limit time spent on compensatory behaviors such as internet search. Completed a mindfulness exercise and reviewed strategies to be present and work on physiological responses when anxious/tense. Cntructive feedback for Sx management provided. Assessment/Response: * Mental status: Overwhelmed, but open, oriented x3 and alert. Anxiety, mild depressive sx. Moderate functioning issues due to pain, not walking a lot. * Risk reported/identified: None. PT was engaged and cooperative. Techniques used seemed effective and patient responded well to intervention. Assessment & Plan Assessment & Plan (1) Generalized anxiety disorder: Code(s): F41.1 - Generalized anxiety disorder (2) Major depressive disorder, recurrent episode: Code(s): F33.9 - Major depressive disorder, recurrent, unspecified Qualifiers: Major depression episode severity: moderate Qualified Code(s): F33.1 - Major depressive disorder, recurrent, moderate (3) Trauma and stressor-related disorder: Code(s): F43.9 - Reaction to severe stress, unspecified Plan Continue weekly sessions, next varsha: 09/24/2024 at 11am, via telehealth. PT will continue implementing exercises at least 2 times at day even if doing/feeling well. Telehealth Telehealth Telehealth Platform: [facility] Location of provider rendering services: other Location of patient: address on file Patient Identification confirmed using: Name, : Yes Telehealth method: video Patient verbally consented to treatment: Yes Patient verbally consented to billing insurance company: Yes Patient informed of any privacy concerns related to visit: Yes Coding Level of Care Code Established Pt Tele Psytx >53 mins ([id number]) Patient Type Established Diagnoses Generalized anxiety disorder F41.1 Moderate episode of recurrent major depressive disorder F33.1 Major depression episode severity: moderate Trauma and stressor-related disorder F43.9 Time Spent (min) 60 Comment Start time: 11:15, End time: 12:15pm
== END 2024-09-17 11:00 | disposition home or self-care (01) ==
LOC: HO.HOP 10:27
PROVIDERS: PCP Pediatrics Adolescent Medicine; Visit Provider Counselor Mental Health
DX: F41.1 Generalized anxiety disorder (principal); F33.1 Major depressive disorder, recurrent, moderate; F43.9 Reaction to severe stress, unspecified
CPT/HCPCS: 90837

== ENCOUNTER 2024-09-24 12:21 | Outpatient (AMB) | payer BC, MEDICAID, SELFPAY ==
--- NOTE | 2024-09-24 11:05 | A.OFFWM_ITS ---
Intake Intake Visit Reasons: VIDEO OP Therapy Allergies ciclopirox Allergy (Intermediate, Verified 10/27/24 10:56) Rash gluten Adverse Reaction (Mild, Verified 10/27/24 16:52) Itching lactose Adverse Reaction (Mild, Verified 10/27/24 16:52) Itching PFSH Medical History Chronic pelvic pain in male Cyst of epididymis Testicular pain, left Scrotal pain Trauma and stressor-related disorder Major depressive disorder, recurrent episode Generalized anxiety disorder HIV (human immunodeficiency virus infection) Social History Comment: Alcohol occasional Smoked in Last 30 Days: No Use of substances other than those prescribed or required for medical reasons: Yes Substance Use Type: Marijuana Substance Use Frequency: Daily Last Used Substance: Just Prior to Admission Advance Directives: No Advance Directives Information Provided: Yes Do you have a plan to hurt others: No Plan Sexual orientation: Lesbian/Saenz/Homosexual Gender identity: Male Behavioral Health Assessment Weight Management Therapy Therapy Notes Details Subjective: PT reports no significant changes in genera but feeling slightly better . Objective: PT presents for a follow up visit via Telehealth. . Today we continue addressing biased, fearful self-talk that plays a role in worry and persistent anxiety Sx with the use of more constructive strategies. We reviewed coping plan to change/improve responses o triggering events (for example relaxation in response to stress and/or physical Sx, mindfulness for outthinking/negative self-talk, etc) Processed mixed feelings and other personal life triggers . Used validation while providing constructive feedback. CBT and CPT based interventions used. Assessment/Response: * Mental status: low motivation, depressive. less anxiety but tension. Alert, oriented x 3. Mod functioning issues. * Risk reported/identified: None Techniques used seemed effective and patient was responsive to interventions. Assessment & Plan Assessment & Plan (1) Generalized anxiety disorder: Code(s): F41.1 - Generalized anxiety disorder (2) Major depressive disorder, recurrent episode: Code(s): F33.9 - Major depressive disorder, recurrent, unspecified Qualifiers: Major depression episode severity: moderate Qualified Code(s): F33.1 - Major depressive disorder, recurrent, moderate (3) Trauma and stressor-related disorder: Code(s): F43.9 - Reaction to severe stress, unspecified Plan Weekly sessions. Next varsha: 10/01/2024 at 11am, TH. Telehealth Telehealth Telehealth Platform: [place] Location of provider rendering services: other (home office, [place], [place]) Location of patient: address on file Patient Identification confirmed using: Name, : Yes Telehealth method: video Patient verbally consented to treatment: Yes Patient verbally consented to billing insurance company: Yes Patient informed of any privacy concerns related to visit: Yes Minutes spent on Phone/Video with Pt.: 55 Coding Level of Care Code Established Pt Tele Psytx >53 mins ([id number]) Patient Type Established Diagnoses Generalized anxiety disorder F41.1 Moderate episode of recurrent major depressive disorder F33.1 Major depression episode severity: moderate Trauma and stressor-related disorder F43.9 Time Spent (min) 55 Comment start time: 11:05am, End time: 12:00
== END 2024-09-24 14:30 | disposition home or self-care (01) ==
LOC: HO.HOP 12:21
PROVIDERS: PCP Pediatrics Adolescent Medicine; Visit Provider Counselor Mental Health
DX: F41.1 Generalized anxiety disorder (principal); F33.1 Major depressive disorder, recurrent, moderate; F43.9 Reaction to severe stress, unspecified
CPT/HCPCS: 90837

== ENCOUNTER 2024-10-01 11:28 | Outpatient (AMB) | payer BC, MEDICAID, SELFPAY ==
--- NOTE | 2024-10-01 11:15 | A.OFFWM_ITS ---
Intake Intake Visit Reasons: VIDEO OP Therapy Allergies ciclopirox Allergy (Intermediate, Verified 10/27/24 10:56) Rash gluten Adverse Reaction (Mild, Verified 10/27/24 16:52) Itching lactose Adverse Reaction (Mild, Verified 10/27/24 16:52) Itching PFSH Medical History Chronic pelvic pain in male Cyst of epididymis Testicular pain, left Scrotal pain Trauma and stressor-related disorder Major depressive disorder, recurrent episode Generalized anxiety disorder HIV (human immunodeficiency virus infection) Social History Comment: Alcohol occasional Smoked in Last 30 Days: No Use of substances other than those prescribed or required for medical reasons: Yes Substance Use Type: Marijuana Substance Use Frequency: Daily Last Used Substance: Just Prior to Admission Advance Directives: No Advance Directives Information Provided: Yes Do you have a plan to hurt others: No Plan Sexual orientation: Lesbian/Saenz/Homosexual Gender identity: Male Behavioral Health Assessment Weight Management Therapy Therapy Notes Details Subjective: PT reports he has been doing better last week and also feeling in a good mood today. Objective: PT presents for a follow up visit via Telehealth. . Discussed functioning and routine. Processed changes in mood/functioning since las visit. Used CBT and CPT based interventions. Worked in creating ways to increase engagement in different activities for Sx management, healthy habits, hobbies, etc that would benefit his functioning and level of satisfaction with life in spite of medical challenges and will support depression management. Reviewed Sx management skills and plan for bad moments and reflected on fearful self-talk that plays a role in worry while working on reframing and/or alternatives to address these mental responses. Assessment/Response: * Mental status: euthymic, anxiety/stress is manageable . Oriented 3X, alert. Better functioning as pain is lower today. * Risk reported/identified: None. PT open and enegaged. Better mood and functioning. Responded well to interventions. Was more receptive, very insightful. Modality seemed appropriate for his needs. Assessment & Plan Assessment & Plan (1) Generalized anxiety disorder: Code(s): F41.1 - Generalized anxiety disorder (2) Major depressive disorder, recurrent episode: Code(s): F33.9 - Major depressive disorder, recurrent, unspecified Qualifiers: Major depression episode severity: moderate Qualified Code(s): F33.1 - Major depressive disorder, recurrent, moderate (3) Trauma and stressor-related disorder: Code(s): F43.9 - Reaction to severe stress, unspecified Plan Continue meeting on a weekly basis via Telehealth. No changes to Tx plan, same goals. Next varsha: 10/08/2024 at 1am, Telehealth. Telehealth Telehealth Telehealth Platform: [employer] Location of provider rendering services: other ([place] office, [place], [place]) Location of patient: address on file Patient Identification confirmed using: Name, : Yes Telehealth method: video Patient verbally consented to treatment: Yes Patient verbally consented to billing insurance company: Yes Patient informed of any privacy concerns related to visit: Yes Minutes spent on Phone/Video with Pt.: 60 Coding Level of Care Code Established Pt Tele Psytx >53 mins ([id number]) Patient Type Established Diagnoses Generalized anxiety disorder F41.1 Moderate episode of recurrent major depressive disorder F33.1 Major depression episode severity: moderate Trauma and stressor-related disorder F43.9 Time Spent (min) 60 Comment Start time: 11:15am, End time: 12:15pm
== END 2024-10-02 08:23 | disposition home or self-care (01) ==
LOC: HO.HOP 11:28
PROVIDERS: PCP Pediatrics Adolescent Medicine; Visit Provider Counselor Mental Health
DX: F41.1 Generalized anxiety disorder (principal); F33.1 Major depressive disorder, recurrent, moderate; F43.9 Reaction to severe stress, unspecified
CPT/HCPCS: 90837

== ENCOUNTER 2024-10-08 11:10 | Outpatient (AMB) | payer BC, MEDICAID, SELFPAY ==
--- NOTE | 2024-10-08 11:00 | A.OFFWM_ITS ---
Intake Intake Visit Reasons: VIDEO OP Therapy Allergies ciclopirox Allergy (Intermediate, Verified 10/27/24 10:56) Rash gluten Adverse Reaction (Mild, Verified 10/27/24 16:52) Itching lactose Adverse Reaction (Mild, Verified 10/27/24 16:52) Itching PFSH Medical History Chronic pelvic pain in male Cyst of epididymis Testicular pain, left Scrotal pain Trauma and stressor-related disorder Major depressive disorder, recurrent episode Generalized anxiety disorder HIV (human immunodeficiency virus infection) Social History Comment: Alcohol occasional Smoked in Last 30 Days: No Use of substances other than those prescribed or required for medical reasons: Yes Substance Use Type: Marijuana Substance Use Frequency: Daily Last Used Substance: Just Prior to Admission Advance Directives: No Advance Directives Information Provided: Yes Do you have a plan to hurt others: No Plan Sexual orientation: Lesbian/Saenz/Homosexual Gender identity: Male Behavioral Health Assessment Weight Management Therapy Therapy Notes Details Subjective: PT presents not feeling well emotionally as he has been struggling with his eyes and felt he hit rock bottom during the weekend and also his pelvic pain has been on and off. Objective: PT presents for a follow up visit via Telehealth. - Discussed functioning and processed ongoing issues and recent triggers. Validated feelings. Completed grounding exercise combined with tapping for self- regulation. Reviewed and processed BH-prevention plan for Sx management and coping with rel apses with depression/anxiety and ways to implemented now. During the session this provided filled out some forms for client's SS claim. Constructive feedback provided while using talk therapy and CBBT-techniques. Assessment/Response: * Mental status: Depressed, discouraged and frustrated. some hopelessness . Oriented X3, alert, no attention issues. Moderate physical functioning issues due to eye problems and pain. * Risk reported/identified: None. Assessment & Plan Assessment & Plan (1) Generalized anxiety disorder: Code(s): F41.1 - Generalized anxiety disorder (2) Major depressive disorder, recurrent episode: Code(s): F33.9 - Major depressive disorder, recurrent, unspecified Qualifiers: Major depression episode severity: moderate Qualified Code(s): F33.1 - Major depressive disorder, recurrent, moderate (3) Trauma and stressor-related disorder: Code(s): F43.9 - Reaction to severe stress, unspecified Plan Follow up next week. PT will implement coping/relapse prevention plan. He will reach out if in need of a sooner varsha. Next varsha: 10/15/2024 at 11am, Telehealth. Telehealth Telehealth Telehealth Platform: [employer] Location of provider rendering services: other (home office, [place], [place]) Location of patient: address on file Patient Identification confirmed using: Name, : Yes Telehealth method: video Patient verbally consented to treatment: Yes Patient verbally consented to billing insurance company: Yes Patient informed of any privacy concerns related to visit: Yes Minutes spent on Phone/Video with Pt.: 60 Coding Level of Care Code Established Pt Tele Psytx >53 mins ([id number]) Patient Type Established Diagnoses Generalized anxiety disorder F41.1 Moderate episode of recurrent major depressive disorder F33.1 Major depression episode severity: moderate Trauma and stressor-related disorder F43.9 Time Spent (min) 60
== END 2024-10-08 14:33 | disposition home or self-care (01) ==
LOC: HO.HOP 11:10
PROVIDERS: PCP Pediatrics Adolescent Medicine; Visit Provider Counselor Mental Health
DX: F41.1 Generalized anxiety disorder (principal); F33.1 Major depressive disorder, recurrent, moderate; F43.9 Reaction to severe stress, unspecified
CPT/HCPCS: 90837

== ENCOUNTER 2024-10-15 11:15 | Outpatient (AMB) | payer BC, MEDICAID, SELFPAY ==
--- NOTE | 2024-10-15 11:05 | A.OFFWM_ITS ---
Intake Intake Visit Reasons: VIDEO OP Therapy Allergies ciclopirox Allergy (Intermediate, Verified 10/27/24 10:56) Rash gluten Adverse Reaction (Mild, Verified 10/27/24 16:52) Itching lactose Adverse Reaction (Mild, Verified 10/27/24 16:52) Itching PFSH Medical History Chronic pelvic pain in male Cyst of epididymis Testicular pain, left Scrotal pain Trauma and stressor-related disorder Major depressive disorder, recurrent episode Generalized anxiety disorder HIV (human immunodeficiency virus infection) Social History Comment: Alcohol occasional Smoked in Last 30 Days: No Use of substances other than those prescribed or required for medical reasons: Yes Substance Use Type: Marijuana Substance Use Frequency: Daily Last Used Substance: Just Prior to Admission Advance Directives: No Advance Directives Information Provided: Yes Do you have a plan to hurt others: No Plan Sexual orientation: Lesbian/Saenz/Homosexual Gender identity: Male Behavioral Health Assessment Weight Management Therapy Therapy Notes Details Subjective: PT presents feelings anxious and overwhelmed. I'm stressed out PT reports he had panic attacks last week. Objective: PT presents for a follow up visit via Telehealth -Interpersonal therapy and CPT technique s implemented for anxiety and trauma- related Sx. -We processed parentification issues due to history of trauma and childhood issues. Reflected on how these are related to anxiety and physiological responses (autoimmune conditions, pain re:issues, mother medical issues, panic Sx, heart rate, etc) - discussed need to start psych. treatme nt and possibly medication due to intensity of his Sx. PT aggress and we looked for providers together, he declined this provider sending a referral, he 'd rather do it himself. - Reviewed techniques for Panic Sx. when /how to implement them. Assessment/Response: * Mental status: anxious, tense. Alert, oriented X3. moderate functioning impairments. * Risk reported/identified: None. PT responded well to interventions. Assessment & Plan Assessment & Plan (1) Generalized anxiety disorder: Code(s): F41.1 - Generalized anxiety disorder (2) Major depressive disorder, recurrent episode: Code(s): F33.9 - Major depressive disorder, recurrent, unspecified Qualifiers: Major depression episode severity: moderate Qualified Code(s): F33.1 - Major depressive disorder, recurrent, moderate (3) Trauma and stressor-related disorder: Code(s): F43.9 - Reaction to severe stress, unspecified Plan Follow up next week. PT will implement plan for better management of panic Sx. Recommended 2 books: how to do the work, Kanika Moseley. The body keeps the score. (available in the library for free as physical or zhou version) He will reach out if in need of a sooner varsha. Next varsha: 10/22/2024 at 11am, Telehealth. Telehealth Telehealth Telehealth Platform: [employer] Location of provider rendering services: other (home office, [place], [place]) Location of patient: address on file Patient Identification confirmed using: Name, : Yes Telehealth method: video Patient verbally consented to treatment: Yes Patient verbally consented to billing insurance company: Yes Patient informed of any privacy concerns related to visit: Yes Minutes spent on Phone/Video with Pt.: 60 Coding Level of Care Code Established Pt Tele Psytx >53 mins ([id number]) Patient Type Established Diagnoses Generalized anxiety disorder F41.1 Moderate episode of recurrent major depressive disorder F33.1 Major depression episode severity: moderate Trauma and stressor-related disorder F43.9 Time Spent (min) 60
--- OUTSIDE RECORDS SUMMARY | 2024-10-22 13:20 | XMS_ITS | Data Portability ---
Author Organization [place] - [facility], Allergy Address [address] [address] Care Team Providers Care Documentation Nurse Name Role Phone ISABEL TRAN Primary Care Provider [phone] ISABEL TRAN Referring Provider [phone] JANES TRAN Primary Care Provider Assessment No assessment recorded. Plan of Treatment Reminders Order Date Submit Date Provider Last Modified By Organization Details Last Modified Time Details Appointments None record ed. Lab None record ed. Referral None record ed. Procedures None record ed. Surgeries None record ed. Imaging None record ed. Medication Orders None record ed. Patient TargetsNo targets recorded. Patient InstructionsNo instructions recorded. Reason for Referral None Reported. Results Created Date Observation Date Name Description Value Unit Range Abnormal Flag Note LastModifiedBy Organization Detail LastModifiedTime 07/03/20 24 04/25/2023 imagi ng/di agnos tic resul t No observ ation record ed. [email or web address] Not Available 22:36:14 Result Notes None recorded. Problems Name Problem SNOMED Code Status Onset Date Resolution Date Notes Provider Name and Address Organization Details Recorded Time Bilateral tinnitus 75931282488 02 Active 2022 Tinnitus, bilateral ; Note: Date Diagnosed : 04/25/2023 2:02 PM (H93.13) Not Available [facility] 4 03:17:50 Jaw pain 044133515 Active 2022 Jaw pain; Note: Date Diagnosed : 04/25/2023 2:07 PM (R68.84) Not Available [facility] 4 03:17:49 Chronic tonsillit is 63926347 Active 2023 MARCOS SABA MD [address] [place] [address], [facility] [place], [address] , [facility] - [facility] 4 11:34:25 Bleeding from nose 788475885 Active 2023 Epistaxis ; Note: Date Diagnosed : 12/21/2023 1:51 PM (R04.0) Not Available [facility] 4 03:17:49 Chronic disease of tonsils AND/OR adenoids 96942220 Active 2023 Calculus, tonsil; Note: Date Diagnosed : 12/21/2023 1:50 PM (J35.8) Not Available [facility] 03:17:50 Hemoptysi s 22001189 Active 2023 Hemoptysi s; Note: Date Diagnosed : 12/22/2023 3:29 PM (R04.2) Not Available [facility] 4 03:17:50 Hypertrop hy of tonsils 28785872 Active 2023 Hypertrop hy of tonsils; Note: Date Diagnosed : 12/11/2023 1:00 PM (J35.1) Not Available [facility] 4 03:17:50 Problem Notes None recorded. Procedures Surgical History None recorded. Imaging Results Imaging Date Name Status LastModified by Organiz ation Details LastModified Time 04/25/2023 imaging/diag nostic result completed [email or web address] Information not available 07/03/2024 22:36:14 Procedure Notes None recorded. Medical Equipment None Reported. Allergies No known drug allergies Medications Name Sig Start Date Stop Date Status Note LastModified by Organization Details LastModified Time amoxicill in 500 mg capsule TAKE 1 CAPSULE BY MOUTH EVERY 8 HOURS UNTIL FINISHED 05/17 completed Not Available Not Available Not Available fluconazo le 100 mg tablet TAKE 1 TABLET BY MOUTH EVERY DAY FOR 14 DAYS 05/17 completed Not Available Not Available Not Available gabapenti n 600 mg tablet TAKE 1 TABLET BY MOUTH 3 TIMES A DAY active Not Available Not Available No t Available doxycycli ne hyclate 100 mg capsule TAKE 2 CAPSULES BY MOUTH WITHIN 24-72 HRS AFTER CONDOMLE SS SEX. active Not Available Not Available No t Available trazodone 50 mg tablet PLEASE SEE ATTACHED FOR DETAILED DIRECTIO NS 05/17 completed Not Available Not Available Not Available ibuprofen 800 mg tablet TAKE 1 TABLET EVERY 6 TO 8 HOURS NEEDED FOR PAIN active Not Available Not Available No t Available acyclovir 400 mg tablet TAKE 1 TABLET BY MOUTH 3 TIMES A DAY FOR 10 DAYS 05/17 completed Not Available Not Available Not Available sulfameth oxazole 800 mg-trimet hoprim 160 mg tablet TAKE 1 TABLET BY MOUTH EVERY 12 HOURS FOR 10 DAYS 05/17 completed Not Available Not Available Not Available amoxicill in 875 mg tablet TAKE 1 TABLET BY MOUTH EVERY 12 HOURS UNTIL FINISHED 05/17 completed Not Available Not Available Not Available prednisol one acetate 1 % eye drops,nila pension INSTILL 1 DROP INTO BOTH EYES THREE TIMES A DAY USE FOR 2 WEEKS THEN STOP. 05/17 completed Not Available Not Available Not Available erythromy karina 5 mg/gram (0.5 %) eye ointment APPLY 1 CM RIBBON INTO THE CONJUNCT IVAL SAC(S) INTO AFFECTED EYE 3 TIMES A DAY 05/17 completed Not Available Not Available Not Available nystatin- triamcino lone 100,000 unit/g-0. 1 % topical cream APPLY TO AFFECTED AREA TWICE A DAY IN THE MORNING AND IN THE EVENING 05/17 completed Not Available Not Available Not Available hydroxyzi ne HCl 25 mg tablet TAKE 1 TABLET BY MOUTH EVERY DAY FOR 30 DAYS active Not Available Not Available No t Available mupirocin 2 % topical ointment APPLY A SMALL AMOUNT TO AFFECTED AREA 3 TIMES A DAY active Not Available Not Available No t Available epinephri ne 0.3 mg/0.3 mL injection , auto-inje ctor USE DIRECTED FOR ANAPHYLA XIS active Not Available Not Available No t Available cyclospor ine 0.05 % eye drops in a dropperet te INSTILL 1 DROP INTO BOTH EYES TWICE A DAY active Not Available Not Available No t Available duloxetin e 60 mg capsule,d elayed release active Medicati on ID: [id number] B rand Name: duloxeti ne Send Method: E-Prescr ibed Sub s Allowed: subs OK Medic ationGen ericName : duloxeti ne Not Available Not Available Not Available butalbita l-acetami nophen-ca ffeine 50 mg-300 mg-40 mg capsule TAKE 1 CAPSULE BY MOUTH EVERY 4 HOURS NEEDED MIGRAINE S active Not Available Not Available No t Available Biktarvy 50 mg-200 mg-25 mg tablet TAKE 1 TABLET BY MOUTH EVERY DAY active Not Available Not Available No t Available Sodium Fluoride 5000 Dry Mouth 1.1 % dental paste USE DIRECTED . 05/17 completed Not Available Not Available Not Available Vitals Date Recorded Body height Body mass index (BMI) Body weight Provider Name and Address Organization Details Last Updated DateTime 05/17/2024 177.8 cm 25.8 kg/m2 63850.63 g Kasey Farrell [place] - [facility] 05/17/2024 13:41:31 Social History None recorded. Functional Status None recorded. Mental Status None recorded. Family History Nothing Reported. Medical History Condition Response Migraines Y Immune System Disorder Y Past Encounters Encounter ID Performer Location Encounter Start Date Encounter Closed Date Diagnosis/Indication Diagnosis SNOMED-CT Code Diagnosis ICD10 Code [id number] MARCOS SABA MD [facility] [address] [address] 05/17/2024 13:34:24 05/20/2024 17:12:20 Chronic tonsillitis 87522198 J35.01 Health Concerns Section Related Observation LastModified by Organization Detai ls LastModified Time None Recorded Concern Status LastModified by Organization Details LastModified Time None Recorded Advance Directives Directive None Recorded Payers Encounter Date Sequence Insurance Name Policy Number Policy Shelton Covered Member ID Shelton Member ID Guarantor Name 05/17/2024 1 [place] [facility] [place] [place] [id number] Casper Inman [id number] Casper Inman 05/17/2024 2 [place] [facility] Casper Inman [id number] Casper Imnan Notes Date Note Type Note Provider Name and Address Organization Details Recorded Time 05/17/2024 text/html 23-year-old male presents today for follow-up. He has been seen for chronic tonsillitis and hemoptysis. He had a bronchoscopy with Dr. Carr. He was noted to have friable lingual tonsils and the rest of the bronchoscopy was unremarkable. Casper has not had any episodes of bleeding in several weeks. MARCOS SABA MD [address] [place] [address], [place], [address], [facility] - [facility] 05/18/2024 11:39:09
== END 2024-10-15 14:30 | disposition home or self-care (01) ==
LOC: HO.HOP 11:15
PROVIDERS: PCP Pediatrics Adolescent Medicine; Visit Provider Counselor Mental Health
DX: F41.1 Generalized anxiety disorder (principal); F33.1 Major depressive disorder, recurrent, moderate; F43.9 Reaction to severe stress, unspecified
CPT/HCPCS: 90837

== ENCOUNTER → 2024-10-15 11:15 | Outpatient (BNVA) | payer BC, MEDICAID, SELFPAY | PROVIDERS: PCP Pediatrics Adolescent Medicine; Visit Provider Counselor Mental Health ==

== ENCOUNTER 2024-10-22 11:11 | Outpatient (AMB) | payer BC, MEDICAID, SELFPAY ==
--- NOTE | 2024-10-22 11:15 | MHC.WMTHER ---
Intake Intake Visit Reasons: VIDEO OP Therapy Allergies ciclopirox Allergy (Intermediate, Verified 10/27/24 10:56) Rash gluten Adverse Reaction (Mild, Verified 10/27/24 16:52) Itching lactose Adverse Reaction (Mild, Verified 10/27/24 16:52) Itching PFSH Medical History Chronic pelvic pain in male Cyst of epididymis Testicular pain, left Scrotal pain Trauma and stressor-related disorder Major depressive disorder, recurrent episode Generalized anxiety disorder HIV (human immunodeficiency virus infection) Social History Comment: Alcohol occasional Smoked in Last 30 Days: No Use of substances other than those prescribed or required for medical reasons: Yes Substance Use Type: Marijuana Substance Use Frequency: Daily Last Used Substance: Just Prior to Admission Advance Directives: No Advance Directives Information Provided: Yes Do you have a plan to hurt others: No Plan Sexual orientation: Lesbian/Saenz/Homosexual Gender identity: Male Behavioral Health Assessment Weight Management Therapy Therapy Notes Details Subjective: PT reports been slowly feeling sad and hopeless. But excited about upcoming varsha in [place]. His father will drive hi and he will return in public transportation. PT frustrated about having to go under these circumstances knowing [place] alone in [place] bus ride. PT reports finding himself a lot comparing his life and ongoing challenges with other's which worsen how he feels. PT also reported some tension at home. And, still not in good terms which close friend and/or Godmother. Objective: PT presents for a follow up visit via Telehealth. . Supportive/reflective listening. Processed functioning and challenges. Discussed triggers and upcoming events. Used CBT to address biased, fearful and negative self-talk that plays a role in anxiety and depressive Sx with the use of cognitive reframing technique. provided with exercise for over-thinking (worksheet sent) Discussed issues in interpersonal relationships, reflected on worse/best/possible case escenario and ways to addrees misunderstandings. Validated feelings and supported with gaining confidence to set/maintain limits and advocate for himself while continuing to be more assertive. Assessment/Response: Mental status: depressed. oriented x3, alert, attentive, engaged. Some preoccupation and worry. Ongoing physical functioning impaired. Risk reported/identified: denies. None identified. Plan: Continue weekly therapy. Assessment & Plan Assessment & Plan (1) Generalized anxiety disorder: Code(s): F41.1 - Generalized anxiety disorder (2) Major depressive disorder, recurrent episode: Code(s): F33.9 - Major depressive disorder, recurrent, unspecified Qualifiers: Major depression episode severity: moderate Qualified Code(s): F33.1 - Major depressive disorder, recurrent, moderate (3) Trauma and stressor-related disorder: Code(s): F43.9 - Reaction to severe stress, unspecified Plan Weekly sessions. Next varsha: 10/29/2024 at 11am, TH. Telehealth Telehealth Telehealth Platform: [place] Location of provider rendering services: other ([facility], [place], [place]) Location of patient: address on file Patient Identification confirmed using: Name, : Yes Telehealth method: video Patient verbally consented to treatment: Yes Patient verbally consented to billing insurance company: Yes Patient informed of any privacy concerns related to visit: Yes Minutes spent on Phone/Video with Pt.: 60 Coding Level of Care Code Established Pt Tele Psytx >53 mins (86446) Patient Type Established Diagnoses Generalized anxiety disorder F41.1 Moderate episode of recurrent major depressive disorder F33.1 Major depression episode severity: moderate Trauma and stressor-related disorder F43.9 Time Spent (min) 60 Comment Start time: 11:00am, End time: 12:00pm
--- OUTSIDE RECORDS SUMMARY | 2024-10-23 20:39 | XMS_ITS | Data Portability ---
Author Organization [place] - [facility], Allergy Address [address] [address] Care Team Providers Care Manager Managed Care Name Role Phone ISABEL TRAN Primary Care Provider [phone] ISABEL TRAN Referring Provider [phone] JANES TRAN Primary Care Provider Assessment No [...] Address Organization Details Recorded Time Bilateral tinnitus 17752433405 02 Active 2022 Tinnitus, bilateral ; Note: Date Diagnosed : 04/25/2023 2:02 PM (H93.13) Not Available [facility] 4 03:17:50 Jaw pain 810428293 Active 2022 Jaw pain; Note: Date Diagnosed : 04/25/2023 2:07 PM (R68.84) Not Available [facility] 4 03:17:49 Chronic tonsillit is 55723854 Active 2023 MARCOS SABA MD [address] [place] [address], [place], [address] , [facility] - [facility] 4 11:34:25 Bleeding from nose 291854375 Active 2023 Epistaxis ; Note: Date Diagnosed : 12/21/2023 1:51 PM (R04.0) Not Available [facility] 4 03:17:49 Chronic disease of tonsils AND/OR adenoids 05639261 Active 2023 Calculus, tonsil; Note: Date Diagnosed : 12/21/2023 1:50 PM (J35.8) Not Available [facility] 03:17:50 Hemoptysi s 48126644 Active 2023 Hemoptysi s; Note: Date Diagnosed : 12/22/2023 3:29 PM (R04.2) Not Available [facility] 4 03:17:50 Hypertrop hy of tonsils 91365955 Active 2023 Hypertrop hy of tonsils; Note: Date Diagnosed : 12/11/2023 1:00 PM (J35.1) Not Available [facility] 4 03:17:50 Problem Notes None recorded. [...] capsule,d elayed release active Medicati on ID: [id number] B rand Name: duloxeti ne Send Method: [...] Updated DateTime 05/17/2024 177.8 cm 25.8 kg/m2 39339.63 g Kasey Farrell [place] - [facility] 05/17/2024 13:41:31 Social History None recorded. Functional Status None recorded. Mental Status None recorded. Family History Nothing Reported. Medical History Condition Response Migraines Y Immune System Disorder Y Past Encounters Encounter ID Performer Location Encounter Start Date Encounter Closed Date Diagnosis/Indication Diagnosis SNOMED-CT Code Diagnosis ICD10 Code [id number] MARCOS SABA MD [facility] [address] [address] 05/17/2024 13:34:24 05/20/2024 17:12:20 Chronic tonsillitis 50323074 J35.01 Health Concerns Section Related Observation LastModified by Organization Detai ls LastModified Time None Recorded Concern Status LastModified by Organization Details LastModified Time None Recorded Advance Directives Directive None Recorded Payers Encounter Date Sequence Insurance Name Policy Number Policy Shelton Covered Member ID Shelton Member ID Guarantor Name 05/17/2024 1 [place] [facility] [place] [id number] Casper Inman [id number] Casper Inman 05/17/2024 2 [place] [facility] Casper Inman [id number] Casper Inman Notes Date Note Type Note Provider Name [...] bleeding in several weeks. MARCOS SABA MD [address] [place] [address], [place], [address], [facility] - [facility] 05/18/2024 11:39:09
== END 2024-10-22 14:17 | disposition home or self-care (01) ==
LOC: HO.HOP 11:11
PROVIDERS: PCP Pediatrics Adolescent Medicine; Visit Provider Counselor Mental Health
DX: F41.1 Generalized anxiety disorder (principal); F33.1 Major depressive disorder, recurrent, moderate; F43.9 Reaction to severe stress, unspecified
CPT/HCPCS: 90837

== ENCOUNTER 2024-10-27 10:50 | Emergency (ER) | payer BC, MEDICAID, SELFPAY ==
[2024-10-27 10:53] VITALS: BP 127/92; PULSE 91; RESP 18; TEMP 36.5; O2SAT 94; BMI 24.8
--- OUTSIDE RECORDS SUMMARY | 2024-10-27 10:53 | XMS_ITS | Data Portability ---
Author Organization [place] - [facility], Allergy Address [address] [address] Care Team Providers Care At Risk Paraprofessional Name Role Phone ISABEL TRAN Primary Care Provider ISABEL TRAN Referring Provider [phone] JANES TRAN Primary Care Provider Assessment No [...] Address Organization Details Recorded Time Bilateral tinnitus 87794089744 02 Active 2022 Tinnitus, bilateral ; Note: Date Diagnosed : 04/25/2023 2:02 PM (H93.13) Not Available [facility] 4 03:17:50 Jaw pain 947954837 Active 2022 Jaw pain; Note: Date Diagnosed : 04/25/2023 2:07 PM (R68.84) Not Available [facility] 4 03:17:49 Chronic tonsillit is 45682821 Active 2023 MARCOS SABA MD [address] [place] [address], [facility] [place], [address] , [facility] - [facility] 4 11:34:25 Bleeding from nose 893790174 Active 2023 Epistaxis ; Note: Date Diagnosed : 12/21/2023 1:51 PM (R04.0) Not Available [facility] 4 03:17:49 Chronic disease of tonsils AND/OR adenoids 77634240 Active 2023 Calculus, tonsil; Note: Date Diagnosed : 12/21/2023 1:50 PM (J35.8) Not Available [facility] 03:17:50 Hemoptysi s 39472997 Active 2023 Hemoptysi s; Note: Date Diagnosed : 12/22/2023 3:29 PM (R04.2) Not Available [facility] 4 03:17:50 Hypertrop hy of tonsils 18718507 Active 2023 Hypertrop hy of tonsils; Note: Date Diagnosed : 12/11/2023 1:00 PM (J35.1) Not Available [facility] 4 03:17:50 Problem Notes None recorded. Procedures [...] capsule,d elayed release active Medicati on ID: [id number] B rand Name: duloxeti ne Send Method: [...] Updated DateTime 05/17/2024 177.8 cm 25.8 kg/m2 15938.63 g Kasey Farrell [place] - [facility] 05/17/2024 13:41:31 Social History None recorded. Functional Status None recorded. Mental Status None recorded. Family History Nothing Reported. Medical History Condition Response Migraines Y Immune System Disorder Y Past Encounters Encounter ID Performer Location Encounter Start Date Encounter Closed Date Diagnosis/Indication Diagnosis SNOMED-CT Code Diagnosis ICD10 Code [id number] MARCOS SABA MD [facility] [address] [address] 05/17/2024 13:34:24 05/20/2024 17:12:20 Chronic tonsillitis [id number] J35.01 Health Concerns Section Related Observation LastModified by Organization Detai ls LastModified Time None Recorded Concern Status LastModified by Organization Details LastModified Time None Recorded Advance Directives Directive None Recorded Payers Encounter Date Sequence Insurance Name Policy Number Policy Shelton Covered Member ID Shelton Member ID Guarantor Name 05/17/2024 1 [place] [facility] [place] [id number] Casper Inman [id number] Casper Inman 05/17/2024 2 [place] [facility] Casper Inman [id number] Casper Inman Notes Date Note Type Note [...] bleeding in several weeks. MARCOS SABA MD [address] [place] [address], [place], [address], [facility] - [facility] 05/18/2024 11:39:09
--- NOTE | 2024-10-27 10:57 | ED_ITS ---
HPI - Psych General Chief Complaint: Psychiatric Symptoms Stated Complaint: Crisis Time Seen by Provider: 10/27/24 11:02 Source: patient Mode of arrival: ambulatory History of Present Illness ED Provider: CHARLI Fernández HPI Narrative: This is a 24-year-old male history of HIV, chronic pelvic pain and males, peripheral neuropathy, fibromyalgia, trauma and stress-related disordered, major depression, anxiety presenting with concerns of ?mental health crisis ?, reports he has a lot of chronic conditions that make him feel overwhelmed, he reports he does not have much support within his support group. Reports that his family intermittently supports him. Reports he is intermittently suicidal with plan to jump off of the [facility] parking garage. Denies hallucinations. Denies medical complaints. Related Data Home Medications ?Medication ?Instructions ?Recorded ?Confirmed bictegravir 50 mg-emtricitabine 1 tab PO DAILY 07/16/24 10/27/24 200 mg-tenofovir alafenam 25 mg tablet (Biktarvy) duloxetine 60 mg capsule,delayed 60 mg PO BID 07/16/24 10/27/24 release cyclosporine 0.09 % eye drops in a 1 drp ophthalmic (eye) BID 10/27/24 10/27/24 dropperette (Cequa) dupilumab 300 mg/2 mL subcutaneous 300 mg subcut Q2W 10/27/24 10/27/24 pen injector (Dupixent) naltrexone 4.5 mg capsule 4.5 mg PO DAILY 10/27/24 10/27/24 pregabalin 200 mg capsule 200 mg PO BID 10/27/24 10/27/24 Allergies Allergy/AdvReac Type Severity Reaction Status Date / Time ciclopirox Allergy Intermediate Rash Verified 10/27/24 10:56 Review of Systems 2 Review of Systems: Yes all other systems are reviewed and are negative PMFSH Past Medical History Attestation statement: The following information was validated with the patient. Source: old records reviewed and nursing notes reviewed Medical History Chronic pelvic pain in male Cyst of epididymis Testicular pain, left Scrotal pain Trauma and stressor-related disorder Major depressive disorder, recurrent episode Generalized anxiety disorder HIV (human immunodeficiency virus infection) Social History Social History Comment: Alcohol occasional Smoked in Last 30 Days: No Use of substances other than those prescribed or required for medical reasons: Yes Substance Use Type: Marijuana Substance Use Frequency: Daily Last Used Substance: Just Prior to Admission Advance Directives: No Advance Directives Information Provided: Yes Do you have a plan to hurt others: No Plan Sexual orientation: Lesbian/Saenz/Homosexual Gender identity: Male Physical Exam 2 Vital Signs: Vital Signs: Last Vital Signs Temp 97.7 F 10/27/24 11:08 Pulse 94 10/27/24 11:08 Resp 14 10/27/24 11:14 BP 128/82 10/27/24 11:08 Pulse Ox 99 10/27/24 11:08 O2 Del Method Room Air 10/27/24 11:08 BMI result Body Mass Index 24.8 vss Appearance: Alert.? Oriented X3.? No acute distress.? Head: Normocephalic, atraumatic, no step-offs or deformities Eyes: Pupils equal, round and reactive to light.? ENT: Pharynx normal.? Neck: Normal inspection.? Neck supple.? CVS: Normal heart rate and rhythm.? Pulses normal.? Respiratory: No respiratory distress.? Breath sounds normal.? Abdomen: Soft and nontender.? Skin: Skin warm and dry.? Normal skin color.? Normal skin turgor.? Extremities: No lower extremity edema.? No calf ttp. 5/5 strength to bilateral upper and lower extremities Neuro: Oriented X 3.? No motor deficit.? No sensory deficit. CN 2-12 intact Course Course Course Narrative: This is an RME performed by Charles Murphy CNP: Additional HPI, ROS, PE not included below will be deferred to primary provider. Patient is a 24-year-old male who presents to the emergency department pmhx HIV reporting I am having a mental health crisis . He reports that he does not have any family support, and expresses a lot of depression anxiety surrounding his chronic illnesses. He endorses SI and states a specific plan always comes to mind but does not disclose details in regards to this. He denies HI. He denies drug or alcohol usage. Plan: serum labs for medical clearance, toxicology testing, referral to care team Reevaluation(s) Reevaluation #1: CBC unremarkable. Chemistry no acute findings needing intervention. UA without infection. Urine toxicology positive for marijuana. At this time physician observation initiated to allow more time to be evaluated by care team at time observation was started patient common cooperative no acute distress will continue to monitor Time: 11:57 Medical Decision Making Medical Decision Making [facility] Narrative: 24-year-old male presents with health related anxiety and depression and intermittent suicidal ideation Physical exam benign History and physical exam concerning for anxiety, depression and suicidal ideation. Unlikely metabolic derangement Plan labs, evaluation by care team. Differential Diagnosis Differential Diagnoses: The differential diagnosis associated with the presentation includes ( History and physical exam concerning for anxiety, depression and suicidal ideation. Unlikely metabolic derangement) Admission/Observation Consideration of admission/observation: Escalation of care including admission/observation considered Lab Data [facility] Lab Attestation statement: I reviewed the patient's lab results. 10/27/24 11:22 10/27/24 11:22 Labs: Lab Results 10/27/24 Range/Units 11:22 WBC 5.5 (4.8-10.8) X10*3/uL RBC 5.11 (4.60-5.80) X10*6/uL Hgb 15.6 (14.0-18.0) g/dl Hct 43.6 (42.0-52.0) % MCV 85.3 (80.0-98.0) fL MCH 30.5 (27.0-33.0) pg MCHC 35.8 (31.0-36.0) g/dl RDW 11.1 (11.0-16.0) % Plt Count 249 (160-400) X10*3/uL MPV 9.5 (9.4-12.4) fL Immature Gran % (Auto) 0.2 (0.0-0.4) % Neut % (Auto) 58.5 (45-73) % Lymph % (Auto) 30.6 (20-40) % Cottle % (Auto) 8.9 (2-11) % Eos % (Auto) 1.3 (0-4) % Baso % (Auto) 0.5 (0-2) % Lymph # (Auto) 1.7 (1.2-4.9) X10*3/uL Cottle # (Auto) 0.5 (0.1-1.2) X10*3/uL Eos # (Auto) 0.1 (0.0-0.4) X10*3/uL Baso # (Auto) 0.0 (0.0-0.2) X10*3/uL Abs Immat Gran (auto) 0.01 (0.00-0.03) X10*3/uL Absolute Neuts (auto) 3.2 (2.0-8.3) x10*3/uL Absolute Nucleated RBC 0.000 (0.0-0.012) X10*3/uL Nucleated RBC % (auto) 0.0 (0.0-0.2) /100WBC Sodium 140 (135-145) mmol/L Potassium 3.7 (3.3-5.1) mmol/L Chloride 107 (96-108) mmol/L Carbon Dioxide 26 (22-29) mmol/L Anion Gap 11 L (12-20) BUN 12 (9-16) mg/dL Creatinine 1.07 (0.5-1.4) mg/dL Estim Creat Clear Calc 108.2 Estimated GFR > 60 Random Glucose 102 (60-115) mg/dL Calcium 9.5 D (8.4-10.2) mg/dL Total Bilirubin 0.5 (0.0-1.0) mg/dL AST 26 (5-37) U/L ALT 17 (0-40) U/L Alkaline Phosphatase 85 (39-117) U/L Total Protein 7.9 (6.5-8.0) g/dL Albumin 4.7 (3.5-5.0) g/dL Urine Color Yellow Urine Appearance Turbid Urine pH 8.5 (5.0-9.0) Ur Specific [place] 1.020 (1.005-1.025) Urine Protein Trace (Neg-Trace) mg/dL Urine Glucose (UA) Negative (Negative) mg/dL Urine Ketones Negative (Negative) mg/dL Urine Blood Small (1+) H (Negative) Urine Nitrite Negative (Negative) Ur Leukocyte Esterase Negative (Negative) Urine RBC >20 H (0-2) /HPF Urine WBC 0-5 (0-5) /HPF Ur Squamous Epith Cells 0-2 (0-2) /HPF Urine Bacteria None Seen (None Seen) Hyaline Casts 0-2 (0-2) /LPF Urine Opiates Screen Not Detected (Not Detect) Ur Buprenorphine Scrn Not Detected (Not Detect) ng/mL Ur Oxycodone Screen Not Detected (Not Detect) ng/mL Urine Methadone Screen Not Detected (Not Detect) ng/mL Urine Fentanyl Screen Not Detected (Not Detect) Ur Barbiturates Screen Not Detected (Not Detect) Ur Phencyclidine Scrn Not Detected (Not Detect) Ur Amphetamines Screen Not Detected (Not Detect) U Benzodiazepines Scrn Not Detected (Not Detect) Urine Cocaine Screen Not Detected (Not Detect) U Marijuana (THC) Screen POSITIVE H (Not Detect) Ethyl Alcohol < 10 mg/dL Critical Care Time Critical Care Time Critical Care Time: No Discharge Plan Discharge Clinical Impression: Trauma and stressor-related disorder, Generalized anxiety disorder, Major depressive disorder, recurrent episode Patient Disposition: Still a Patient Prescriptions: No Action pregabalin 200 mg capsule 200 mg PO BID Cequa 0.09 % dropperette 1 drp ophthalmic (eye) BID Dupixent Pen 300 mg/2 mL pen injector 300 mg subcut Q2W naltrexone 4.5 mg Capsule 4.5 mg PO DAILY Biktarvy 50-200-25 mg tablet 1 tab PO DAILY duloxetine 60 mg capsule,delayed release(DR/EC) 60 mg PO BID Interventions: [place]-Suicide Risk Severity Scale Last Done: 10/27/24 11:14 Print Language: Panamanian
[2024-10-27 11:08] VITALS: BP 128/82; PULSE 94; RESP 15; TEMP 36.5; O2SAT 99
--- NOTE | 2024-10-27 11:08 | PC.NURSE ---
RE: med rec this RN completed medication reconcilliation with both the medical record and patient recall. patient reports he just started taking Naltrexone 4.5 mg daily a three days ago
[2024-10-27 11:14] VITALS: RESP 14
[2024-10-27 11:27] LABS: MANUAL DIFF FLAG NO
[2024-10-27 11:29] LABS: Appearance Urine Turbid; Basophils Percent Auto 0.5 % (0-2); Color Urine Yellow; Eosinophils Absolute Auto 0.1 X10*3/uL (0.0-0.4); Eosinophils Percent Auto 1.3 % (0-4); Glucose Urine UA Negative (Negative); Hematocrit 43.6 % (42.0-52.0); Hemoglobin 15.6 g/dl (14.0-18.0); Imm Gran Abs Auto 0.01 X10*3/uL (0.00-0.03); Imm Gran Pct Auto 0.2 % (0.0-0.4); Leukocyte Esterase Urine Negative (Negative); Lymphocytes Absolute Auto 1.7 X10*3/uL (1.2-4.9); Lymphocytes Percent Auto 30.6 % (20-40); Mean Corpuscular HGB Conc 35.8 g/dl (31.0-36.0); Mean Corpuscular Hemoglobin 30.5 pg (27.0-33.0); Mean Corpuscular Volume 85.3 fL (80.0-98.0); Mean Platelet Volume 9.5 fL (9.4-12.4); Monocytes Absolute Auto 0.5 X10*3/uL (0.1-1.2); Monocytes Percent Auto 8.9 % (2-11); Neutrophils Absolute Auto 3.2 x10*3/uL (2.0-8.3); Neutrophils Percent Auto 58.5 % (45-73); Nitrite Urine Negative (Negative); PH 8.5 (5.0-9.0); Platelet Count 249 X10*3/uL (160-400); Red Blood Count 5.11 X10*6/uL (4.60-5.80); Red Cell Distribution Width 11.1 % (11.0-16.0); UMIC TRIGGER UACC YES; Urine Blood Small (1+) (Negative); Urine Ketones Negative (Negative); Urine Protein Trace mg/dL (Neg-Trace); White Blood Count 5.5 X10*3/uL (4.8-10.8)
[2024-10-27 11:34] LABS: Bacteria Urine None Seen (None Seen); Hyaline Casts Urine 0-2 /LPF (0-2); RBC Urine >20 /HPF (0-2); Squamous Epithelial Cell Urine 0-2 /HPF (0-2); WBC Urine 0-5 /HPF (0-5)
[2024-10-27 11:42] LABS: Amphetamine Screen Urine Not Detected (Not Detect); Barbiturates, Urine Not Detected (Not Detect); Benzodiazepines Screen Urine Not Detected (Not Detect); Buprenorphine Scr Not Detected (Not Detect); Cannabinoid Screen Urine POSITIVE (Not Detect); Cocaine Screen Urine Not Detected (Not Detect); Fentanyl, urine Not Detected (Not Detect); Methadone Screen, Urine Not Detected (Not Detect); Opiate Screen Urine Not Detected (Not Detect); Oxycodone Screen Urine Not Detected (Not Detect); Phencyclidine Screen Urine Not Detected (Not Detect)
[2024-10-27 11:43] LABS: Alanine Aminotransferase 17 U/L (0-40); Albumin Level 4.7 g/dL (3.5-5.0); Alkaline Phosphatase 85 U/L (39-117); Anion Gap 11 (12-20); Aspartate Amino Transferase 26 U/L (5-37); Bilirubin Total 0.5 mg/dL (0.0-1.0); Blood Urea Nitrogen 12 mg/dL (9-16); Calcium 9.5 mg/dL (8.4-10.2); Carbon Dioxide 26 mmol/L (22-29); Chloride 107 mmol/L (96-108); Creatinine Clr Calc Pharmacy 108.2; Estimated Glomerular Filt Rate > 60; Ethanol < 10 mg/dL; Glucose Random 102 mg/dL (60-115); Potassium 3.7 mmol/L (3.3-5.1); Sodium 140 mmol/L (135-145); Total Protein 7.9 g/dL (6.5-8.0)
--- NOTE | 2024-10-27 17:20 | PC.NURSE ---
Patient called mom to bring the following medications in: Naltrexone, Dupixent and eye drops
[2024-10-27 17:21] VITALS: PULSE 87; RESP 16; O2SAT 98
[2024-10-27 20:13] VITALS: BP 114/77; PULSE 73; RESP 18; TEMP 36.9; O2SAT 98
[2024-10-27] MEDS: DULoxetine HCl 60 MG CAPSULE.DR PO (20:37)
[2024-10-27] MEDS: [UNRECOGNIZED DRUG - OTHER] 2 EACH EYE-BOTH (20:37)
[2024-10-27] MEDS: Pregabalin 200 MG CAPSULE PO (21:06)
[2024-10-28 02:17] VITALS: BP 124/80; PULSE 92; RESP 16; TEMP 36.6; O2SAT 99
--- NOTE | 2024-10-28 08:09 | PHA.MEDREC ---
Addendum entered by Eun Chandler RPh 10/28/24 08:21: Reviewed by [facility] Original Note: Pharmacy Consult ? Medication Reconciliation Pharmacy has reviewed the medication reconciliation done by nursing. claim match med list.
[2024-10-28] MEDS: DULoxetine HCl 60 MG CAPSULE.DR PO ×2 (08:11→20:48)
[2024-10-28] MEDS: Pregabalin 200 MG CAPSULE PO ×2 (08:11→20:48)
[2024-10-28] MEDS: Bictegrav/Emtricit/Tenofov Ala TABLET 1 TAB PO (08:39)
[2024-10-28] MEDS: [UNRECOGNIZED DRUG - OTHER] 2 EACH EYE-BOTH ×2 (10:44→18:21)
[2024-10-28 18:15] VITALS: BP 130/84; PULSE 74; RESP 16; TEMP 36.6; O2SAT 98
[2024-10-29 06:11] VITALS: BP 110/79; PULSE 96; RESP 18; TEMP 36.7; O2SAT 98
--- NOTE | 2024-10-29 06:34 | PC.NURSE ---
Patient slept through the night, no distress observed/reported, meds and meals compliant, disposition per care team is sec-12 inpatient bed search, disposition may change to respite per care team, no behavior and safety concerns, VSS, will continue to monitor
[2024-10-29] MEDS: DULoxetine HCl 60 MG CAPSULE.DR PO (08:32)
[2024-10-29] MEDS: Pregabalin 200 MG CAPSULE PO (08:32)
[2024-10-29] MEDS: Bictegrav/Emtricit/Tenofov Ala TABLET 1 TAB PO (09:57)
--- NOTE | 2024-10-29 10:12 | PC.NURSE ---
pt requesting therapist's phone number from [facility]. phone number provided to pt at this time.
--- NOTE | 2024-10-29 10:46 | PC.NURSE ---
pt speaking w/ care team at this time.
--- NOTE | 2024-10-29 11:16 | MHC.CARE ---
Pt does not meet the criteria for IPLOC and does not present as an imminent risk at this time. Pt denies SI, HI, and A/V/H. Pt declined a referral to ACCS, PHP, or [facility] and will D/C home to follow up with current providers.
[2024-10-29 11:59] VITALS: BP 110/79; PULSE 96; RESP 18; TEMP 36.7; O2SAT 98
--- NOTE | 2024-10-29 12:00 | PC.NURSE ---
pt discussed w/ care team in regards to plan of care moving forward. pt provided w/ outpatient discharge paperwork.
== END 2024-10-29 12:07 | disposition home or self-care (01) ==
PROVIDERS: Emergency Medicine; Emergency Provider Emergency Medicine Emergency Medical Services
DX: F33.1 Major depressive disorder, recurrent, moderate (principal); F41.1 Generalized anxiety disorder; F43.0 Acute stress reaction; R45.851 Suicidal ideations; Z21 Asymptomatic human immunodeficiency virus [HIV] infection status; Z79.899 Other long term (current) drug therapy; Z51.81 Encounter for therapeutic drug level monitoring
CPT/HCPCS: 36415; 80053; 80307; 81001; 85025; 96372; 99285; S9485

== ENCOUNTER → 2024-11-05 11:32 | Outpatient (BNVA) | payer BC, MEDICAID, SELFPAY | PROVIDERS: Visit Provider Counselor Mental Health ==

== ENCOUNTER → 2024-11-05 11:32 | Outpatient (AMB) | payer BC, MEDICAID, SELFPAY ==
--- NOTE | 2024-11-05 11:05 | A.OFFWM_ITS ---
Intake Intake Visit Reasons: VIDEO OP Therapy Allergies ciclopirox Allergy (Intermediate, Verified 10/27/24 10:56) Rash gluten Adverse Reaction (Mild, Verified 10/27/24 16:52) Itching lactose Adverse Reaction (Mild, Verified 10/27/24 16:52) Itching PFSH Medical History Chronic pelvic pain in male Cyst of epididymis Testicular pain, left Scrotal pain Trauma and stressor-related disorder Major depressive disorder, recurrent episode Generalized anxiety disorder HIV (human immunodeficiency virus infection) Social History Comment: Alcohol occasional Substance Use Type: Marijuana Sexual orientation: Lesbian/Saenz/Homosexual Gender identity: Male Behavioral Health Assessment Weight Management Therapy Therapy Notes Details Subjective: Casper presents feeling down. After being D/C from hospital he was not allowed to return to his home until he signed a Behavior Contract for Living at Home , he signed that on sat 11/02. He stayed at his cousin's house. PT states he feels worn out and emotionally exhausted but denies any safety concern and/or functioning issues due to mental health. He is upset about his parents sharing his HIV status with family when he thought they agreed to keep it private. However, he feels defeated as he can't start any argument or his housing is at risk, and by him addressing this concern he's unsure of parents response. PT stated he applies to several housing options at the [facility] website. Objective: PT presents for a post-op visit via Telehealth. He was in the ER-BH unit at [facility] last week and was D/C on 10/29/2024. . Processed inpatient stay and events that triggered that event. Processed ongoing feelings and frustrations with home dynamics. Supported with problem solving CBT and CPT used to target interpersonal Resolutions, preventative Services and Symptom Management. , Assessment/Response: * Mental status: depressed, tired. * Risk reported/identified: None. PT was open and reflective. Session modality was appropriate for client's needs. Assessment & Plan Assessment & Plan (1) Generalized anxiety disorder: Code(s): F41.1 - Generalized anxiety disorder (2) Major depressive disorder, recurrent episode: Code(s): F33.9 - Major depressive disorder, recurrent, unspecified Qualifiers: Major depression episode severity: moderate Qualified Code(s): F33.1 - Major depressive disorder, recurrent, moderate (3) Trauma and stressor-related disorder: Code(s): F43.9 - Reaction to severe stress, unspecified Plan Continue with Weekly sessions. Next varsha: 11/12/2024 at 11am, TH. Telehealth Telehealth Telehealth Platform: Sleep Number Location of provider rendering services: other (home office, [place], [place]) Location of patient: address on file Patient Identification confirmed using: Name, : Yes Telehealth method: video Patient verbally consented to treatment: Yes Patient verbally consented to billing insurance company: Yes Patient informed of any privacy concerns related to visit: Yes Minutes spent on Phone/Video with Pt.: 60 Coding Level of Care Code Established Pt Tele Psytx >53 mins (81865) Patient Type Established Diagnoses Generalized anxiety disorder F41.1 Moderate episode of recurrent major depressive disorder F33.1 Major depression episode severity: moderate Trauma and stressor-related disorder F43.9 Time Spent (min) 60
== END ==
LOC: HO.HOP 11:32
PROVIDERS: Visit Provider Counselor Mental Health
DX: F41.1 Generalized anxiety disorder (principal); F33.1 Major depressive disorder, recurrent, moderate; F43.9 Reaction to severe stress, unspecified
CPT/HCPCS: 90837

== ENCOUNTER 2024-11-12 11:15 | Outpatient (AMB) | payer BC, MEDICAID, SELFPAY ==
--- NOTE | 2024-11-12 11:00 | MHC.WMTHER ---
Intake Intake Visit Reasons: VIDEO OP Therapy Allergies ciclopirox Allergy (Intermediate, Verified 10/27/24 10:56) Rash gluten Adverse Reaction (Mild, Verified 10/27/24 16:52) Itching lactose Adverse Reaction (Mild, Verified 10/27/24 16:52) Itching PFSH Medical History Chronic pelvic pain in male Cyst of epididymis Testicular pain, left Scrotal pain Trauma and stressor-related disorder Major depressive disorder, recurrent episode Generalized anxiety disorder HIV (human immunodeficiency virus infection) Social History Comment: Alcohol occasional Substance Use Type: Marijuana Sexual orientation: Lesbian/Saenz/Homosexual Gender identity: Male Behavioral Health Assessment Weight Management Therapy Therapy Notes Details Subjective: The patient reports being back at home and continues to experience feelings of depression. He declined a referral for PHP/IOP but expressed willingness to search for a prescriber on his own, opting to research providers independently rather than accepting a referral from this provider. Additionally, the patient mentioned researching available resources for his living situation, such as low-income housing. He requested a letter to support his housing application. Objective: PT presents for a f/up visit via Telehealth. Discussed functioning, dynamics in household and progress around housing situation. Explored and challenged the patient's negative thoughts surrounding his depression and feelings of helplessness. We reframed these thoughts to promote a more balanced and realistic perspective. Encouraged the patient to engage in small, manageable activities that could provide a sense of accomplishment and reduce depressive symptoms. Focused on teaching the patient coping strategies for managing depressive symptoms, such as mindfulness, grounding techniques, and self-soothing practices. We also discussed healthy distractions and ways to manage stress while dealing with external pressures like housing instability. Assessment/Response: Mental status: Depressed but alert. Ortietex X3, active in session. Mod functioning issues due to emotional/Physical health. Risk reported/identified: None. The patient is making some effort in treatment but is not showing significant progress at this time. The lack of progress appears to be influenced by ongoing depressive symptoms and challenging social factors, which may be impacting their ability to fully engage or respond to interventions. This conveys the effort the patient has made while acknowledging external factors that may be hindering progress. Assessment & Plan Assessment & Plan (1) Generalized anxiety disorder: Code(s): F41.1 - Generalized anxiety disorder (2) Major depressive disorder, recurrent episode: Code(s): F33.9 - Major depressive disorder, recurrent, unspecified Qualifiers: Major depression episode severity: moderate Qualified Code(s): F33.1 - Major depressive disorder, recurrent, moderate (3) Trauma and stressor-related disorder: Code(s): F43.9 - Reaction to severe stress, unspecified Plan Continue meeting on a weekly basis. Telehealth Telehealth Telehealth Platform: [employer] Location of provider rendering services: other ([facility], [place], [place]) Location of patient: address on file Patient Identification confirmed using: Name, : Yes Telehealth method: video Patient verbally consented to treatment: Yes Patient verbally consented to billing insurance company: Yes Patient informed of any privacy concerns related to visit: Yes Minutes spent on Phone/Video with Pt.: 60 Coding Level of Care Code Established Pt Tele Psytx >53 mins ([id number]) Patient Type Established Diagnoses Generalized anxiety disorder F41.1 Moderate episode of recurrent major depressive disorder F33.1 Major depression episode severity: moderate Trauma and stressor-related disorder F43.9 Time Spent (min) 60
== END 2024-11-12 12:00 | disposition home or self-care (01) ==
LOC: HO.HOP 11:15
PROVIDERS: Visit Provider Counselor Mental Health
DX: F41.1 Generalized anxiety disorder (principal); F33.1 Major depressive disorder, recurrent, moderate; F43.9 Reaction to severe stress, unspecified
CPT/HCPCS: 90837

== ENCOUNTER 2024-11-26 11:00 | Outpatient (AMB) | payer BC, MEDICAID, SELFPAY ==
--- NOTE | 2024-11-26 11:00 | MHC.WMTHER ---
Intake Intake Visit Reasons: VIDEO OP Therapy Allergies ciclopirox Allergy (Intermediate, Verified 10/27/24 10:56) Rash gluten Adverse Reaction (Mild, Verified 10/27/24 16:52) Itching lactose Adverse Reaction (Mild, Verified 10/27/24 16:52) [facility] Medical History Chronic pelvic pain in male Cyst of epididymis Testicular pain, left Scrotal pain Trauma and stressor-related disorder Major depressive disorder, recurrent episode Generalized anxiety disorder HIV (human immunodeficiency virus infection) Social History Comment: Alcohol occasional Substance Use Type: Marijuana Sexual orientation: Lesbian/Saenz/Homosexual Gender identity: Male Behavioral Health Assessment Weight Management Therapy Therapy Notes Details Subjective: The patient presents feeling very frustrated and sad about his ongoing medical issues, particularly the pain he is experiencing. He reports an upcoming intake appointment for IV Ketamine Treatment at [facility] in [place] on 11/29/2024. Objective: The patient presents for a follow-up visit via Telehealth. Reflective listening was used to process his current functioning, daily routine, challenges, and progress. Cognitive Behavioral Therapy (CBT) and Cognitive Processing Therapy (CPT)-based interventions were applied for symptom management and problem-solving. The patient?s feelings of frustration and sadness were validated. We also reviewed techniques for using mindfulness to address ongoing negative thinking patterns and enhance emotional regulation. Assessment/Response: Mental Status: The patient appears frustrated and sad, with a heightened focus on his medical condition, specifically his pain. His mood is congruent with the emotional distress he is experiencing. He is oriented to time, place, and person, with no signs of disorientation. He is engaged in the session and open to exploring interventions to manage his symptoms. Risk Reported/Identified: No current risk of harm to self or others. The patient denies any suicidal ideation or self-harm behaviors at this time. No immediate safety concerns identified. Assessment & Plan Assessment & Plan (1) Generalized anxiety disorder: Code(s): F41.1 - Generalized anxiety disorder (2) Major depressive disorder, recurrent episode: Code(s): F33.9 - Major depressive disorder, recurrent, unspecified Qualifiers: Major depression episode severity: moderate Qualified Code(s): F33.1 - Major depressive disorder, recurrent, moderate (3) Trauma and stressor-related disorder: Code(s): F43.9 - Reaction to severe stress, unspecified Plan Encourage the patient to practice mindfulness techniques daily, focusing on grounding exercises and present-moment awareness to reduce the impact of negative thoughts. Next follow-up appointment scheduled for 12/03/2024 at 11am, Video. Telehealth Telehealth Telehealth Platform: [employer] Location of provider rendering services: other ([place] office, [place], [place]) Location of patient: address on file Patient Identification confirmed using: Name, : Yes Telehealth method: video Patient verbally consented to treatment: Yes Patient verbally consented to billing insurance company: Yes Patient informed of any privacy concerns related to visit: Yes Minutes spent on Phone/Video with Pt.: 60 Coding Level of Care Code Established Pt Tele Psytx >53 mins ([id number]) Patient Type Established Diagnoses Generalized anxiety disorder F41.1 Moderate episode of recurrent major depressive disorder F33.1 Major depression episode severity: moderate Trauma and stressor-related disorder F43.9 Time Spent (min) 60
--- OUTSIDE RECORDS SUMMARY | 2024-11-26 13:27 | XMS_ITS | Data Portability ---
Author Organization [place] - [facility], Allergy Address [address] [address] Care Team Providers Care Building Manager Name Role Phone ISABEL TRAN Primary Care Provider ISABEL TRAN Referring Provider [phone] JANES TRAN Primary Care Provider [phone] Assessment No assessment recorded. Plan of Treatment [...] Address Organization Details Recorded Time Bilateral tinnitus 82469995282 02 Active 2022 Tinnitus, bilateral ; Note: Date Diagnosed : 04/25/2023 2:02 PM (H93.13) Not Available [facility] 4 03:17:50 Jaw pain 232571836 Active 2022 Jaw pain; Note: Date Diagnosed : 04/25/2023 2:07 PM (R68.84) Not Available [facility] 4 03:17:49 Chronic tonsillit is 65838516 Active 2023 MARCOS SABA MD [address] [place] [address], [facility] [place], [address] , [facility] - [facility] 4 11:34:25 Bleeding from nose 564453116 Active 2023 Epistaxis ; Note: Date Diagnosed : 12/21/2023 1:51 PM (R04.0) Not Available [facility] 4 03:17:49 Chronic disease of tonsils AND/OR adenoids 13829937 Active 2023 Calculus, tonsil; Note: Date Diagnosed : 12/21/2023 1:50 PM (J35.8) Not Available [facility] 03:17:50 Hemoptysi s 65982332 Active 2023 Hemoptysi s; Note: Date Diagnosed : 12/22/2023 3:29 PM (R04.2) Not Available [facility] 4 03:17:50 Hypertrop hy of tonsils 15926062 Active 2023 Hypertrop hy of tonsils; Note: Date Diagnosed : 12/11/2023 1:00 PM (J35.1) Not Available [facility] 4 03:17:50 Problem Notes None recorded. Procedures [...] capsule,d elayed release active Medicati on ID: [id number] B rand Name: duloxeti ne Send Method: [...] Updated DateTime 05/17/2024 177.8 cm 25.8 kg/m2 52172.63 g Kasey Farrell [place] - [facility] 05/17/2024 13:41:31 Social History None recorded. Functional Status None recorded. Mental Status None recorded. Family History Nothing Reported. Medical History Condition Response Migraines Y Immune System Disorder Y Past Encounters Encounter ID Performer Location Encounter Start Date Encounter Closed Date Diagnosis/Indication Diagnosis SNOMED-CT Code Diagnosis ICD10 Code Diagnosis Note [id number] MARCOS SABA MD [facility] [address] [address] 05/17/2024 13:34:24 05/20/2024 17:12:20 Chronic tonsillitis 33476602 J35.01 23-year-ol d male presents today for follow-up. He has been seen for chronic tonsilliti s and hemoptysis . He had a bronchosco py with Dr. Carr. He was noted to have friable lingual tonsils and the rest of the bronchosco py was unremarkab le. Casper has not had any episodes of bleeding in several weeks. We have previously discussed tonsillect forest. We discussed that this would not be expected to resolve the hemoptysis . We discussed that common contributi ons to lingual tonsil irritation include allergies, reflux, dryness. He is still deciding if he would like to proceed with surgery and will let us know. In the interim recommend follow-up with any new or worsening symptoms. Health Concerns Section Related Observation LastModified by Organization Detai ls LastModified Time None Recorded Concern Status LastModified by Organization Details LastModified Time None Recorded Advance Directives Directive None Recorded Payers Encounter Date Sequence Insurance Name Policy Number Policy Shelton Covered Member ID Shelton Member ID Guarantor Name 05/17/2024 1 [place] [facility] (O) [id number] Casper Inman [id number] Casper Inman 05/17/2024 2 [place] [facility] Casper Inman [id number] Casper Inman Notes Date Note Type Note [...] bleeding in several weeks. MARCOS SABA MD [address] [place] [address], [phone], [facility] - [facility] 05/18/2024 11:39:09
== END 2024-11-26 14:50 | disposition home or self-care (01) ==
LOC: HO.HOP 11:22
PROVIDERS: Visit Provider Counselor Mental Health
DX: F41.1 Generalized anxiety disorder (principal); F33.1 Major depressive disorder, recurrent, moderate; F43.9 Reaction to severe stress, unspecified
CPT/HCPCS: 90837

== ENCOUNTER 2024-12-10 11:08 | Outpatient (AMB) | payer BC, MEDICAID, SELFPAY ==
--- NOTE | 2024-12-10 11:00 | A.OFFWM_ITS ---
Intake Intake Visit Reasons: VIDEO OP Therapy Allergies ciclopirox Allergy (Intermediate, Verified 10/27/24 10:56) Rash gluten Adverse Reaction (Mild, Verified 10/27/24 16:52) Itching lactose Adverse Reaction (Mild, Verified 10/27/24 16:52) Itching [facility] Medical History Chronic pelvic pain in male Cyst of epididymis Testicular pain, left Scrotal pain Trauma and stressor-related disorder Major depressive disorder, recurrent episode Generalized anxiety disorder HIV (human immunodeficiency virus infection) Social History Comment: Alcohol occasional Substance Use Type: Marijuana Sexual orientation: Lesbian/Saenz/Homosexual Gender identity: Male Behavioral Health Assessment Weight Management Therapy Therapy Notes Details Subjective: The patient reports feeling fatigued and struggling with persistent pain. He expresses frustration and heightened anxiety, leading to catastrophic thinking. Additionally, he feels stressed about his physical functioning. The patient has had two visits with a pain psychologist and received a nerve block last Monday, but he reports no improvement in his symptoms. He is currently on 4.5mg of compounded Naltrexone and is preparing to begin Ketamine therapy. The patient continues to use cannabis multiple times a day, which he feels helps alleviate his pain. He denies any increase in anxiety related to cannabis use. The patient notes improvements in his sleep and appetite. However, he is aware that his high anxiety causes him to feel frozen, and he has struggled to complete pending tasks, often self-critical for not making progress. Objective: PT presents for a Telehealth visit. The patient participated in a discussion reflecting on his current challenges and functioning. Cognitive Behavioral Therapy (CBT) was used to explore anxiety symptoms and identify a variety of responses, all of which align with his anxiety cycle. Mental strategies were introduced to help reduce catastrophizing thoughts. A behavioral action plan was suggested to improve coping strategies, though the patient declined a referral for Partial Hospitalization Program (PHP). Explored alternative methods for the patient to connect with others and improve emotional support. Assessment/Response: * Mental status: The patient is struggling with high levels of anxiety, chronic pain, and feelings of being stuck due to his symptoms. * Risk reported/identified: None The patient's current level of engagement in therapy is good, but his anxiety continues to interfere with his functioning and task completion. Assessment & Plan Assessment & Plan (1) Generalized anxiety disorder: Code(s): F41.1 - Generalized anxiety disorder (2) Major depressive disorder, recurrent episode: Code(s): F33.9 - Major depressive disorder, recurrent, unspecified Qualifiers: Major depression episode severity: moderate Qualified Code(s): F33.1 - Major depressive disorder, recurrent, moderate (3) Trauma and stressor-related disorder: Code(s): F43.9 - Reaction to severe stress, unspecified Plan - Continue CBT for anxiety management and cognitive restructuring. -Encourage consistent application of mental strategies to reduce catastrophizing. -Revisit the idea of PHP or alternative support if symptoms worsen or if the patient feels he is not progressing. -Explore additional social or community-based support to reduce isolation and increase connection. Next varsha in 1 week. Telehealth Telehealth Telehealth Platform: [facility] Location of provider rendering services: other ([facility], [place], [place]) Location of patient: address on file Patient Identification confirmed using: Name, : Yes Telehealth method: video Patient verbally consented to treatment: Yes Patient verbally consented to billing insurance company: Yes Patient informed of any privacy concerns related to visit: Yes Minutes spent on Phone/Video with Pt.: 60 Coding Level of Care Code Established Pt Tele Psytx >53 mins (69527) Patient Type Established Diagnoses Generalized anxiety disorder F41.1 Moderate episode of recurrent major depressive disorder F33.1 Major depression episode severity: moderate Trauma and stressor-related disorder F43.9 Time Spent (min) 60
--- OUTSIDE RECORDS SUMMARY | 2024-12-10 12:22 | XMS_ITS | Clinical Summary ---
Author Organization [address] [facility] Address [address] [place] [address] Phone Care Team Providers Care Account Leader Name Role Phone Dominik Moses MD Primary Care Provider Encounters Date Type Department Care Team Description 10/18/2024 Lab Requisition [facility] Lab [address] [place] [address] Gissel Vasquez MD Erythema intertrigo 10/18/2024 Lab Requisition [facility] Lab [address] [place] [address] Gsisel Vasquez MD Unspecified conjunctivitis from Last 3 Months Medical History Medical History Date Comments Myopia DX:Myopia HIV infection ([facility]) DX:HIV i nfection ([facility]) Family History Medical History Relation Name Comments No Known Problems Brother Other: RBBB Father No Known Problems Mother Relation Name Status Comments Brother Alive Father Alive Mother Alive Social History Tobacco Use Types Packs/Day Years Used Date Smoking Tobacco: Never Smokeless Tobacco: Never Alcohol Use Standard Drinks/Week Comments Yes 0 (1 standard drink = 0.6 oz pur e alcohol) Sex and Gender Information Value Date Recorded Sex Assigned at Not on file Gender Identity Not on file Sexual Orientation Not on file Obstetrics History Last Filed Vital Signs Vital Sign Reading Time Taken Comments Blood Pressure 122/80 10/05/2022 12:45 PM EST Si tting R Arm Pulse 99 10/05/2022 12:45 PM EST Temperature - - Respiratory Rate - - Oxygen Saturation - - Inhaled Oxygen Concentration - - Weight 73.9 kg (163 lb) 10/05/2022 12:45 PM EST Height 175.3 cm (5' 9 ) 10/05/2022 12:45 PM EST Body Mass Index 24.07 10/05/2022 12:45 PM EST Plan of Treatment Health Maintenance Due Date Last Done Comments HPV Vaccines (1 - Male 3-dos e series) 2017 DTaP,Tdap,and Td Vaccines (1 - Tdap) 2021 Hepatitis B Vaccines (1 of 3 - 19+ 3-dose series) 2021 Depression Screening 10/11/2022 HIV Screening 10/11/2022 Hepatitis C Screening 10/11/2022 Social Influencers of Health Screening 10/11/2022 COVID-19 Vaccine ( - 2023-2 5 season) 2024 Influenza Vaccine (#1) 2024 HIB Vaccines Aged Out No longer eligi ble based on patient's age to complete this topic Hepatitis A Vaccines Aged Out No long er eligible based on patient's age to complete this topic IPV Vaccines Aged Out No longer eligi ble based on patient's age to complete this topic MMR Vaccines Aged Out No longer eligi ble based on patient's age to complete this topic Meningococcal ACWY Vaccine Aged Out N o longer eligible based on patient's age to complete this topic Pneumococcal Vaccine: Pediat rics (0 to 5 Years) and At-Risk Patients (6 to 64 Years) Aged Out No longer eligible b ased on patient's age to complete this topic RSV Immunization Patients Un eliot 20 months Aged Out No longer eligible b ased on patient's age to complete this topic Varicella Vaccines Aged Out No longer eligible based on patient's age to complete this topic Procedures Procedure Name Priority Date/Time Associated Diagnosis Comments CULTURE GENITAL Routine 10/18/2024 12:00 AM EST Erythema intertrigo CULTURE EYE WITH GRAM STAIN Routine 10/18/2024 12:00 AM EST Unspecified conjunctivitis from Last 3 Months Results * Culture eye with gram stain (10/18/2024 12:00 AM EST) Culture, Eye No pathogens isolated. 10/21/2024 10:51 AM EST [facility] Gram Stain Result No polymorphonuclear leukocytes, No epithelial cells, and No organisms noted 10/21/2024 10:51 AM EST [facility] Swab 10/18/2024 10/18/2024 8:0 7 PM EST Gissel Vasquez MD LAB MICROBIOLOGY - GENERAL ORDERABLES Performing Organization Address City/[facility]/ZIP Co de Phone Number [facility] [address] [place] [address], * Culture genital (10/18/2024 12:00 AM EST) Culture, Genital No yeast, Beta Strep group B, Neisseria gonorrhoeae, Listeria, Gardnerella vaginalis, or other predominant potentially significant pathogens noted. 10/21/2024 10:53 AM EST [facility] Swab Urethral structure / Unknown 10/18/2024 10/18/2024 8:11 PM EST Gissel Vasquez MD LAB MICROBIOLOGY - GENERAL ORDERABLES Performing Organization Address [facility]/ZIP Co de Phone Number [facility] [address] [place] [address], from Last 3 Months Care Teams Account Leader Relationship Specialty Start Date End Date Dominik Moses MD [address] [facility] [address] [place], [place] PCP - General Pediatrics 08/27/21
--- OUTSIDE RECORDS SUMMARY | 2024-12-10 12:22 | XMS_ITS | Encounter Summary ---
Author Organization [facility] Address [address] [place] [address] Phone Care Team Providers Care Tmd Teacher Name Role Phone Blanco Webster MD Primary Care Provider [phone] Encounter Details Date Type Department Care Team (Late st Contact Info) Description 04/18/2013 Documentation [facility] [address] [place], [place] [id number] Family Medicine, Physician [address] [place] [address] Social History Tobacco Use Types Packs/Day Years Used Date Smoking Tobacco: Never Assessed Sex and Gender Information Value Date Recorded Sex Assigned at Not on file Legal Sex Male 6:38 PM EDT Gender Identity Not on file Sexual Orientation Not on file documented as of this encounter Plan of Treatment Not on file documented as of this encounter Visit Diagnoses Not on filedocumented in this encounter Care Teams Tmd Teacher Relationship Specialty Start Date End Date Blanco Webster MD [address] [place] [address] [place] [address] PCP - General 03/21/18 documented as of this encounter
--- OUTSIDE RECORDS SUMMARY | 2024-12-10 12:22 | XMS_ITS | Encounter Summary ---
Author Organization [facility] Address [address] [place] [address] Care Team Providers Care Soap Maker Name Role Phone Dominik Moses MD Primary Care Provider [phone] Encounter Details Date Type Department Care Team (Late st Contact Info) Description 10/18/2024 Lab Requisition [facility] - Main Lab [address] [place] [address] Gissel Vasquez MD [address] [place] [address] Unspecified conjunctivitis Social History Tobacco Use Types Packs/Day Years [...] on file documented as of this encounter Procedures Procedure Name Priority Date/Time Associated Diagnosis Comments CULTURE EYE WITH GRAM STAIN Routine 10/18/2024 12:00 AM EST Unspecified conjunctivitis documented in this encounter Results * Culture eye with gram stain (10/18/2024 12:00 AM EST) Culture, Eye No pathogens isolated. 10/21/2024 10:51 AM [facility] Gram Stain Result No polymorphonuclear leukocytes, No epithelial cells, and No organisms noted 10/21/2024 10:51 AM [facility] Swab 10/18/2024 10/18/2024 8:0 7 PM EST Gissel Vasquez MD LAB MICROBIOLOGY - GENERAL ORDERABLES [facility] [address] [place] [address], documented in this encounter Visit Diagnoses Diagnosis Unspecified conjunctivitis documented in this encounter Care Teams Soap Maker Relationship Specialty Start Date End Date Dominik Moses MD [address] [facility] [address] [place], [place] PCP - General Pediatrics 08/27/21 documented as of this encounter
--- OUTSIDE RECORDS SUMMARY | 2024-12-10 12:23 | XMS_ITS | Clinical Summary ---
Author Organization [facility] Address [address] [place] [address] Phone Care Team Providers Care Deep Submergence Vehicle Crewmember Name Role Phone Blanco Webster MD Primary Care Provider [phone] Social History Tobacco Use Types Packs/Day Years Used Date Smoking Tobacco: Never Assessed Sex and Gender Information Value Date Recorded Sex Assigned at Not on file Legal Sex Male 6:38 PM EDT Gender Identity Not on file Sexual Orientation Not on file Plan of Treatment Health Maintenance Due Date Last Done Comments MMR Vaccines (1 of 1 - Stand kobi series) 2003 Varicella Vaccines (1 of 2 - 13+ 2-dose series) 2015 HPV Vaccines (1 - Male 3-dos e series) 2017 Men B Vaccine (1 of 2 - Standard) 2018 DTaP,Tdap,and Td Vaccines (1 - Tdap) 2020 Hepatitis B Vaccines (1 of 3 - 19+ 3-dose series) 2021 Influenza Vaccines (#1) 2024 COVID-19 Vaccine (1 - 2023-2 5 season) 2024 HIB Vaccines Aged Out No longer eligi ble based on patient's age to complete this topic Hepatitis A Vaccines Aged Out No long er eligible based on patient's age to complete this topic IPV Vaccines Aged Out No longer eligi ble based on patient's age to complete this topic Meningococcal Vaccine Aged Out No allen les eligible based on patient's age to complete this topic Pneumococcal Vaccine Aged Out No long er eligible based on patient's age to complete this topic Care Teams Deep Submergence Vehicle Crewmember Relationship Specialty Start Date End Date Blanco Webster MD [facility] [place] [address] PCP - General 03/21/18
--- OUTSIDE RECORDS SUMMARY | 2024-12-10 12:23 | XMS_ITS | Data Portability ---
Author Organization [place] - [facility], Allergy Address [address] [address] Care Team Providers Care Private Sector Executive Name Role Phone ISABEL TRAN Primary Care Provider [phone] ISABEL TRAN Referring Provider [phone] JANES TRAN Primary Care Provider Assessment No [...] Address Organization Details Recorded Time Bilateral tinnitus 45340133737 02 Active 2022 Tinnitus, bilateral ; Note: Date Diagnosed : 04/25/2023 2:02 PM (H93.13) Not Available [facility] 4 03:17:50 Jaw pain 333543380 Active 2022 Jaw pain; Note: Date Diagnosed : 04/25/2023 2:07 PM (R68.84) Not Available [facility] 4 03:17:49 Chronic tonsillit is 48063857 Active 2023 MARCOS SABA MD [address] [place] [address], [facility] [place], [address] , [facility] - [facility] 4 11:34:25 Bleeding from nose 798773493 Active 2023 Epistaxis ; Note: Date Diagnosed : 12/21/2023 1:51 PM (R04.0) Not Available [facility] 4 03:17:49 Chronic disease of tonsils AND/OR adenoids 49181080 Active 2023 Calculus, tonsil; Note: Date Diagnosed : 12/21/2023 1:50 PM (J35.8) Not Available [facility] 03:17:50 Hemoptysi s 41096698 Active 2023 Hemoptysi s; Note: Date Diagnosed : 12/22/2023 3:29 PM (R04.2) Not Available [facility] 4 03:17:50 Hypertrop hy of tonsils 90235737 Active 2023 Hypertrop hy of tonsils; Note: Date Diagnosed : 12/11/2023 1:00 PM (J35.1) Not Available [facility] 4 03:17:50 Problem Notes None [...] capsule,d elayed release active Medicati on ID: [id number] B rand Name: duloxeti ne Send Method: [...] Updated DateTime 05/17/2024 177.8 cm 25.8 kg/m2 89870.63 g Kasey Farrell [place] - [facility] 05/17/2024 13:41:31 Social History None recorded. Functional Status None recorded. Mental Status None recorded. Family History Nothing Reported. Medical History Condition Response Immune System Disorder Y Migraines Y Past Encounters Encounter ID Performer Location Encounter Start Date Encounter Closed Date Diagnosis/Indication Diagnosis SNOMED-CT Code Diagnosis ICD10 Code Diagnosis Note [id number] MARCOS SABA MD [facility] [address] [address] 05/17/2024 13:34:24 05/20/2024 17:12:20 Chronic tonsillitis [id number] J35.01 23-year-ol d male presents today for [...] ID Guarantor Name 05/17/2024 1 [place] [facility] (O) [id number] Casper Inman [id number] Casper Inman 05/17/2024 2 [place] [facility] Casper Inman [id number] Casper Inman Notes Date Note Type Note [...] in several weeks. MARCOS SABA MD [address] [place] [address], [address], [facility] - [facility] 05/18/2024 11:39:09
--- OUTSIDE RECORDS SUMMARY | 2024-12-10 12:23 | XMS_ITS | Encounter Summary ---
Author Organization [facility] Address [address] [place] [address] Care Team Providers Care Teaching Specialists Name Role Phone Dominik Moses MD Primary Care Provider Encounter Details Date Type Department Care Team (Late st Contact Info) Description 10/18/2024 Lab Requisition [facility] - Main Lab [address] [place] [address] Gissel Vasquez MD [address] [place] [address] Erythema intertrigo Social History Tobacco Use Types Packs/Day Years [...] Routine 10/18/2024 12:00 AM EST Erythema intertrigo documented in this encounter Results * Culture genital (10/18/2024 12:00 AM EST) Culture, Genital No yeast, Beta Strep group B, Neisseria gonorrhoeae, Listeria, Gardnerella vaginalis, or other predominant potentially significant pathogens noted. 10/21/2024 10:53 AM EST [facility] ([facility]) [facility] Swab Urethral structure / Unknown 10/18/2024 10/18/2024 8:11 PM EST Gissel Vasquez MD LAB MICROBIOLOGY - GENERAL ORDERABLES [facility] ([facility]) [facility] [address] [place] [address], documented in this encounter Visit Diagnoses Diagnosis Erythema intertrigo Other specified erythematous condition documented in this encounter Care Teams Teaching Specialists Relationship Specialty Start Date End Date Dominik Moses MD [address] [facility] [address] [place], [place] PCP - General Pediatrics 08/27/21 documented as of this encounter
== END 2024-12-10 12:12 | disposition home or self-care (01) ==
LOC: HO.HOP 11:08
PROVIDERS: Visit Provider Counselor Mental Health
DX: F41.1 Generalized anxiety disorder (principal); F33.1 Major depressive disorder, recurrent, moderate; F43.9 Reaction to severe stress, unspecified
CPT/HCPCS: 90837

== ENCOUNTER 2024-12-17 11:12 | Outpatient (AMB) | payer BC, MEDICAID, SELFPAY ==
--- NOTE | 2024-12-17 11:05 | MHC.WMTHER ---
Intake Intake Visit Reasons: VIDEO OP Therapy Allergies ciclopirox Allergy (Intermediate, Verified 10/27/24 10:56) Rash gluten Adverse Reaction (Mild, Verified 10/27/24 16:52) Itching lactose Adverse Reaction (Mild, Verified 10/27/24 16:52) Itching PFSH Medical History Chronic pelvic pain in male Cyst of epididymis Testicular pain, left Scrotal pain Trauma and stressor-related disorder Major depressive disorder, recurrent episode Generalized anxiety disorder HIV (human immunodeficiency virus infection) Social History Comment: Alcohol occasional Substance Use Type: Marijuana Sexual orientation: Lesbian/Saenz/Homosexual Gender identity: Male Behavioral Health Assessment Weight Management Therapy Therapy Notes Details Subjective: The patient reports significant difficulties related to pain management, feeling very depressed and hopeless. He also expresses concerns about struggling financially to meet his needs. On a positive note, he reports that things at home are going well. Objective: The patient presents for a follow-up visit via Telehealth. During the session, reflective listening was used to process his emotional distress related to pain and financial stress. CBT-based interventions were employed to address negative thinking patterns, especially around feelings of hopelessness and helplessness related to his pain. We also explored mindfulness techniques to help the patient focus on the present moment and reduce rumination about his pain and financial issues. Additionally, Cognitive Processing Therapy (CPT) was utilized to help the patient reframe negative beliefs about his pain and its impact on his life. Assessment/Response: Mental Status: The patient appears visibly depressed, with feelings of hopelessness and helplessness. He is oriented to time, place, and person. There are no signs of disorientation, and the patient remains engaged in the session. His affect is congruent with his reported mood, and he is motivated to work on managing his emotional distress. Risk Reported/Identified: The patient denies any suicidal ideation, self-harm, or harm to others at this time. However, his depressive symptoms warrant continued monitoring, especially considering the impact of ongoing pain and financial stress. Assessment & Plan Assessment & Plan (1) Generalized anxiety disorder: Code(s): F41.1 - Generalized anxiety disorder (2) Major depressive disorder, recurrent episode: Code(s): F33.9 - Major depressive disorder, recurrent, unspecified Qualifiers: Major depression episode severity: moderate Qualified Code(s): F33.1 - Major depressive disorder, recurrent, moderate (3) Trauma and stressor-related disorder: Code(s): F43.9 - Reaction to severe stress, unspecified Plan Continue meeting on a weekly basis. Next varsha: 12/24/24 at 11am. Telehealth. Telehealth Telehealth Telehealth Platform: Ever[employer] Location of provider rendering services: other ([facility], [place], [place]) Location of patient: address on file Patient Identification confirmed using: Name, : Yes Telehealth method: video Patient verbally consented to treatment: Yes Patient verbally consented to billing insurance company: Yes Patient informed of any privacy concerns related to visit: Yes Minutes spent on Phone/Video with Pt.: 60 Coding Level of Care Code Established Pt Tele Psytx >53 mins (15882) Patient Type Established Diagnoses Generalized anxiety disorder F41.1 Moderate episode of recurrent major depressive disorder F33.1 Major depression episode severity: moderate Trauma and stressor-related disorder F43.9 Time Spent (min) 60
--- OUTSIDE RECORDS SUMMARY | 2024-12-17 12:06 | XMS_ITS | Encounter Summary ---
Author Organization [facility] Address [address] [place] [address] Phone Care Team Providers Care Melt Helper Name Role Phone Blanco Webster MD Primary Care Provider [phone] Encounter Details Date Type Department Care Team (Late st Contact Info) Description 04/18/2013 Documentation [facility] Family Medicine [address] [place], [place] [id number] Family Medicine, Physician [address] [place] [address] Social History Tobacco Use Types Packs/Day Years [...] on filedocumented in this encounter Care Teams Melt Helper Relationship Specialty Start Date End Date Blanco Webster MD [address] [place] [address] [place] [address] PCP - General 03/21/18 documented as of this encounter
--- OUTSIDE RECORDS SUMMARY | 2024-12-17 12:06 | XMS_ITS | Clinical Summary ---
Author Organization [facility] Address [address] [place] [address] Phone Care Team Providers Care Envelope Sealing Machine Operator Name Role Phone Dominik Moses MD Primary Care Provider [phone] Encounters Date Type Department Care Team Description 12/11/[address] [facility] Lab [address] [place] [id number] Gissel Vasquez MD Contact with and (suspected) exposure to infections with a predominantly sexual mode of transmission; Human immunodeficiency virus (HIV) disease ([facility]) 10/18/[address] [facility] Lab [address] [place] [phone] Gissel Vasquez MD Erythema intertrigo 10/18/[address] [facility] [address] [place] [address] Gissel Vasquez MD Unspecified conjunctivitis from Last 3 Months Medical History Medical History Date Comments Myopia DX:Myopia HIV infection ([facility]) DX:HIV i nfection ([facility]) Family History Medical History Relation Name Comments [...] Health Maintenance Due Date Last Done Comments Meningococcal ACWY Vaccine ( 1 - Risk 2-dose series) 2004 COVID-19 Vaccine (#1) 2007 Pneumococcal Vaccine: Pediat rics (0 to 5 Years) and At-Risk Patients (6 to 64 Years) (1 of 2 - PCV) 2008 HPV Vaccines (1 - Risk male 3-dose series) 2013 MMR Vaccines (1 of 2 - Risk 2-dose series) 2020 DTaP,Tdap,and Td Vaccines (1 - Tdap) 2021 Hepatitis A Vaccines (1 of 2 - Risk 2-dose series) 2021 Hepatitis B Vaccines (1 of 3 - 19+ 3-dose series) 2021 Depression Screening 10/11/2022 Hepatitis C Screening 10/11/2022 Social Influencers of Health Screening 10/11/2022 Influenza Vaccine (#1) 2024 HIB Vaccines Aged [...] Procedure Name Priority Date/Time Associated Diagnosis Comments URINALYSIS WITH REFLEX MICROSCOPIC Routine 12/11/2024 12:00 AM EST Contact with and (suspected) exposure to infections with a predominantly sexual mode of transmission Human immunodeficiency virus (HIV) disease ([facility]) URINALYSIS WITH REFLEX MICROSCOPIC Routine 12/11/2024 12:00 AM EST Contact with and (suspected) exposure to infections with a predominantly sexual mode of transmission Human immunodeficiency virus (HIV) disease (CMS/HCC) CHLAMYDIA TRACHOMATIS AND NEISSERIA GONORRHOEAE PCR Routine 12/11/2024 12:00 AM EST Contact with and (suspected) exposure to infections with a predominantly sexual mode of transmission Human immunodeficiency virus (HIV) disease (CMS/HCC) CHLAMYDIA TRACHOMATIS AND NEISSERIA GONORRHOEAE PCR Routine 12/11/2024 12:00 AM EST Contact with and (suspected) exposure to infections with a predominantly sexual mode of transmission Human immunodeficiency virus (HIV) disease (CMS/HCC) CHLAMYDIA TRACHOMATIS AND NEISSERIA GONORRHOEAE PCR Routine 12/11/2024 12:00 AM EST Contact with and (suspected) exposure to infections with a predominantly sexual mode of transmission Human immunodeficiency virus (HIV) disease (CMS/HCC) CULTURE WOUND DEEP Routine 12/11/2024 12 :00 AM EST Contact with and (suspected) exposure to infections with a predominantly sexual mode of transmission Human immunodeficiency virus (HIV) disease (CMS/HCC) CULTURE GENITAL Routine 10/18/2024 12:00 AM EST Erythema intertrigo CULTURE EYE WITH GRAM STAIN Routine 10/18/2024 12:00 AM EST Unspecified conjunctivitis from Last 3 Months Results * (ABNORMAL) Urinalysis with reflex microscopic (12/11/2024 12:00 AM EST) Specific [place] Urine 1.026 1.003 - 1.030 LAB URINALYSIS - AUTOMATED METHOD 12/11/2024 7:38 PM [facility] pH, Urine 5.5 5.0 - 8.0 pH LAB URINALYSIS - AUTOMATED METHOD 12/11/2024 7:38 PM [facility] Leukocytes, Urine Trace(A) Negative LAB URINALYSIS - AUTOMATED METHOD 12/11/2024 7:38 PM [facility] Nitrite, Urine Negative Negative LAB URINALYSIS - AUTOMATED METHOD 12/11/2024 7:38 PM [facility] Protein, Urine Trace <=Trace mg/dL LAB URINALYSIS - AUTOMATED METHOD 12/11/2024 7:38 PM [facility] Glucose, Urine Negative Negative mg/dL LAB URINALYSIS - AUTOMATED METHOD 12/11/2024 7:38 PM [facility] Ketones, Urine 15(A) Negative mg/dL LAB URINALYSIS - AUTOMATED METHOD 12/11/2024 7:38 PM [facility] Urobilinogen, Urine 1.0 0.2 - 1.0 mg/dL LAB URINALYSIS - AUTOMATED METHOD 12/11/2024 7:38 PM [facility] Bilirubin, Urine Negative Negative LAB URINALYSIS - AUTOMATED METHOD 12/11/2024 7:38 PM [facility] Blood, Urine Negative Negative LAB URINALYSIS - AUTOMATED METHOD 12/11/2024 7:38 PM [facility] RBC, Urine 4.7(H) 0 - 4 /HPF LAB URINALYSIS - AUTOMATED METHOD 12/11/2024 7:38 PM [facility] WBC, Urine 0.0 0 - 4 /HPF LAB URINALYSIS - AUTOMATED METHOD 12/11/2024 7:38 PM [facility] Squamous Epithelial, Urine 3 0 - 60 /LPF LAB URINALYSIS - AUTOMATED METHOD 12/11/2024 7:38 PM [facility] Bacteria, Urine Negative Negative /HPF LAB URINALYSIS - AUTOMATED METHOD 12/11/2024 7:38 PM [facility] Hyaline Casts, Urine 0.0 0 - 3 /LPF LAB URINALYSIS - AUTOMATED METHOD 12/11/2024 7:38 PM [facility] Urine Urine specimen obtained by clean catch procedure / Unknown 12/11/2024 12/11/2024 7:25 PM EST Gissel Vasquez MD LAB URINE ORDERAB LES Performing Organization Address City/[facility]/ZIP Co de Phone Number [facility] [address] [place] [address], * Chlamydia trachomatis and Neisseria gonorrhoeae molecular study (12/11/2024 12:00 AM EST) Only the most recent of3 resultswithin the time period is included. Neisseria gonorrhoeae PCR Negative Negative LAB MOLECULAR DIAGNOSTICS METHOD 12/12/2024 9:14 AM EST [facility] Chlamydia trachomatis PCR Negative Negative LAB MOLECULAR DIAGNOSTICS METHOD 12/12/2024 9:14 AM EST [facility] Swab Rectum structure / Unknown 12/11/2024 12/11/2024 7:25 PM EST Gissel Vasquez MD LAB MICROBIOLOGY - GENERAL ORDERABLES Performing Organization Address [facility]/ZIP Co de Phone Number [facility] [address] [place] [address], * (ABNORMAL) Culture wound deep (12/11/2024 12:00 AM EST) Culture, Wound Few Staphylococcus epidermidis(A) MARYAN 12/15/2024 12:33 PM EST [facility] Comment: The organism value for this result has been updated. These results have been appended to the previously preliminary verified report. Edited result: Previously reported as Gram Positive Cocci on 12/15/2024 at 1224 EST. Culture, Wound Few Staphylococcus epidermidis(A) MARAYN 12/15/2024 12:33 PM EST [facility] Comment: The organism value for this result has been updated. These results have been appended to the previously preliminary verified report. Edited result: Previously reported as Gram Positive Cocci on 12/15/2024 at 1224 EST. Gram Stain Result No polymorphonuclear leukocytes, No epithelial cells, and No organisms noted 12/15/2024 12:33 PM EST [facility] Swab Structure of left foot / Unknown 12/11/2024 12/11/2024 7:25 PM EST Narrative Organism Antibiotic Method Susceptibility Staphylococcus epidermidis Benzylpenicillin MARYAN >=0.5 ug/ml: Resistant Staphylococcus epidermidis Oxacillin MARYAN >=4 ug/ml: Resistant Staphylococcus epidermidis Gentamicin MARYAN <=0.5 ug/ml: Susceptible Staphylococcus epidermidis Ciprofloxacin MARYAN <=0.5 ug/ml: Susceptible Staphylococcus epidermidis Levofloxacin MARYAN <=0.12 ug/ml: Susceptible Staphylococcus epidermidis Erythromycin MARYAN >=8 ug/ml: Resistant Staphylococcus epidermidis Clindamycin MARYAN <=0.25 ug/ml: Susceptible Staphylococcus epidermidis Quinupristin/Dalfopristin M IC <=0.25 ug/ml: Susceptible Staphylococcus epidermidis Linezolid MARYAN 2 ug/ml: Susceptible Staphylococcus epidermidis Vancomycin MARYAN 2 ug/ml: Susceptible Staphylococcus epidermidis Tetracycline MARYAN 2 ug/ml: Susceptible Staphylococcus epidermidis Rifampin MARYAN <=0.5 ug/ml: Susceptible Staphylococcus epidermidis Benzylpenicillin MARYAN >=0.5 ug/ml: Resistant Staphylococcus epidermidis Oxacillin MARYAN <=0.25 ug/ml: Susceptible Staphylococcus epidermidis Gentamicin MARYAN <=0.5 ug/ml: Susceptible Staphylococcus epidermidis Ciprofloxacin MARYAN <=0.5 ug/ml: Susceptible Staphylococcus epidermidis Levofloxacin MARYAN <=0.12 ug/ml: Susceptible Staphylococcus epidermidis Erythromycin MARYAN >=8 ug/ml: Resistant Staphylococcus epidermidis Clindamycin MARYAN >=8 ug/ml: Resistant Staphylococcus epidermidis Quinupristin/Dalfopristin M IC <=0.25 ug/ml: Susceptible Staphylococcus epidermidis Linezolid MARYAN 1 ug/ml: Susceptible Staphylococcus epidermidis Vancomycin MARYAN 2 ug/ml: Susceptible Staphylococcus epidermidis Tetracycline MARYAN 2 ug/ml: Susceptible Staphylococcus epidermidis Rifampin MARYAN <=0.5 ug/ml: Susceptible Gissel Vasquez MD LAB MICROBIOLOGY - GENERAL ORDERABLES [facility] [address] [place] [address], * Culture eye with gram stain (10/18/2024 12:00 AM EST) Culture, Eye No pathogens isolated. 10/21/2024 10:51 AM EST [facility] Gram Stain Result No polymorphonuclear leukocytes, No epithelial cells, and No organisms noted 10/21/2024 10:51 AM EST [facility] Swab 10/18/2024 10/18/2024 8:0 7 PM EST Gissel Vasquez MD LAB MICROBIOLOGY - GENERAL ORDERABLES [facility] [address] [place] [address], * Culture genital (10/18/2024 12:00 AM EST) Culture, Genital No yeast, Beta Strep group B, Neisseria gonorrhoeae, Listeria, Gardnerella vaginalis, or other predominant potentially significant pathogens noted. 10/21/2024 10:53 AM EST [facility] Swab Urethral structure / Unknown 10/18/2024 10/18/2024 8:11 PM EST Gissel Vasquez MD LAB MICROBIOLOGY - GENERAL ORDERABLES Performing Organization Address City/[facility]/ZIP Co de Phone Number [facility] [address] [place] [address], from Last 3 Months Care Teams Envelope Sealing Machine Operator Relationship Specialty Start Date End Date Dominik Moses MD [address] [facility] [address] [place], [place] PCP - General Pediatrics 08/27/21
--- OUTSIDE RECORDS SUMMARY | 2024-12-17 12:06 | XMS_ITS | Encounter Summary ---
Author Organization [facility] Address [address] [place] [address] Care Team Providers Care Charrer Name Role Phone oDminik Moses MD Primary Care Provider [phone] Encounter Details Date Type Department Care Team (Late st Contact Info) Description 10/18/2024 Lab Requisition [facility] [address] [place] [address] Gissel Vasquez MD [address] [place] [id number] Unspecified conjunctivitis Social History Tobacco Use Types [...] Eye No pathogens isolated. 10/21/2024 10:51 AM [facility] Gram Stain Result No polymorphonuclear leukocytes, No epithelial cells, and No organisms noted 10/21/2024 10:51 AM [facility] Swab 10/18/2024 10/18/2024 8:0 7 PM EST Gissel Vasquez MD LAB MICROBIOLOGY - GENERAL ORDERABLES [facility] ([facility]) [facility] [address] [place] [address], documented in this encounter Visit Diagnoses Diagnosis Unspecified conjunctivitis documented in this encounter Care Teams Charrer Relationship Specialty Start Date End Date Dominik Moses MD [address] [facility] [address] [place], [place] PCP - General Pediatrics 08/27/21 documented as of this encounter
--- OUTSIDE RECORDS SUMMARY | 2024-12-17 12:07 | XMS_ITS | Clinical Summary ---
Author Organization [facility] Address [address] [place] [address] Phone Care Team Providers Care Siding Stapler Name Role Phone Blanco Webster MD Primary Care Provider [phone] Social History Tobacco Use Types Packs/Day Years [...] age to complete this topic Care Teams Siding Stapler Relationship Specialty Start Date End Date Blanco Webster MD [facility] [facility] [address] PCP - General 03/21/18
--- OUTSIDE RECORDS SUMMARY | 2024-12-17 12:07 | XMS_ITS | Data Portability ---
Author Organization [place] [facility], All[facility] Address [address] [address] Care Team Providers Care [place] Name Role Phone ISABEL TRAN Primary Care Provider ISABEL TRAN Referring Provider [phone] JANES TRAN Primary Care Provider [phone] Assessment No assessment recorded. Plan of Treatment [...] Address Organization Details Recorded Time Bilateral tinnitus 87514797474 02 Active 2022 Tinnitus, bilateral ; Note: Date Diagnosed : 04/25/2023 2:02 PM (H93.13) Not Available [facility] 4 03:17:50 Jaw pain 757004781 Active 2022 Jaw pain; Note: Date Diagnosed : 04/25/2023 2:07 PM (R68.84) Not Available [facility] 4 03:17:49 Chronic tonsillit is 97915453 Active 2023 MARCOS SABA MD [address] [place] [address], [place], [address] , [facility] - [facility] 4 11:34:25 Bleeding from nose 420505450 Active 2023 Epistaxis ; Note: Date Diagnosed : 12/21/2023 1:51 PM (R04.0) Not Available [facility] 4 03:17:49 Chronic disease of tonsils AND/OR adenoids 52278804 Active 2023 Calculus, tonsil; Note: Date Diagnosed : 12/21/2023 1:50 PM (J35.8) Not Available [facility] 03:17:50 Hemoptysi s 62673845 Active 2023 Hemoptysi s; Note: Date Diagnosed : 12/22/2023 3:29 PM (R04.2) Not Available [facility] 4 03:17:50 Hypertrop hy of tonsils 72944183 Active 2023 Hypertrop hy of tonsils; Note: Date Diagnosed : 12/11/2023 1:00 PM (J35.1) Not Available [facility] 4 03:17:50 Problem Notes None recorded. [...] capsule,d elayed release active Medicati on ID: [id number] B rand Name: duloxeti ne Send Method: [...] Updated DateTime 05/17/2024 177.8 cm 25.8 kg/m2 33832.63 g Kasey Farrell [place] - [facility] 05/17/2024 13:41:31 Social History None recorded. Functional Status None recorded. Mental Status None recorded. Family History Nothing Reported. Medical History Condition Response Immune System Disorder Y Migraines Y Past Encounters Encounter ID Performer Location Encounter Start Date Encounter Closed Date Diagnosis/Indication Diagnosis SNOMED-CT Code Diagnosis ICD10 Code Diagnosis Note [id number] MARCOS SABA MD [facility] [address] [address] 05/17/2024 13:34:24 05/20/2024 17:12:20 Chronic tonsillitis 22433507 J35.01 23-year-ol d male presents today for [...] ID Guarantor Name 05/17/2024 1 [place] [facility] ([place]) [id number] Casper Inman [id number] Casper Inman 05/17/2024 2 [place] [facility] Casper Inman [id number] Casper Inman Notes Date Note Type Note [...] bleeding in several weeks. MARCOS SABA MD [address] [place] [address], [id number], [facility] - [facility] 05/18/2024 11:39:09
--- OUTSIDE RECORDS SUMMARY | 2024-12-17 12:07 | XMS_ITS | Encounter Summary ---
Author Organization [facility] Address [address] [place] [address] Care Team Providers Care Public Affairs Director Name Role Phone Dominik Moses MD Primary Care Provider [phone] Encounter Details Date Type Department Care Team (Latest Contact Info) Description 12/11/2024 Lab Requisition [facility] - Main Lab [address] [place] [address] Gissel Vasquez MD [address] [place] [id number] Contact with and (suspected) exposure to infections with a predominantly sexual mode of transmission; Human immunodeficiency virus (HIV) disease ([facility]) Social History Tobacco Use Types Packs/Day Years Used Date Smoking Tobacco: Never Smokeless Tobacco: Never Alcohol Use Standard Drinks/Week Comments Yes 0 (1 standard drink = 0.6 oz pur e alcohol) Sex and Gender Information Value Date Recorded Sex Assigned at Not on file Gender Identity Not on file Sexual Orientation Not on file documented as of this encounter Plan of Treatment Pending Results Name Type Priority Associated Diagnoses Date /Time Culture mycoplasma and ureaplasma Microbiology Routine Contact with and (suspected) exposure to infections with a predominantly sexual mode of transmission Human immunodeficiency virus (HIV) disease ([facility]/HCC) 12/11/2024 12:00 AM EST documented as of this encounter Procedures Procedure Name Priority Date/Time Associated Diagnosis Comments URINALYSIS WITH REFLEX MICROSCOPIC Routine 12/11/2024 12:00 AM EST Contact with and (suspected) exposure to infections with a predominantly sexual mode of transmission Human immunodeficiency virus (HIV) disease ([facility]) URINALYSIS WITH REFLEX MICROSCOPIC Routine 12/11/2024 12:00 AM EST Contact with and (suspected) exposure to infections with a predominantly sexual mode of transmission Human immunodeficiency virus (HIV) disease (CMS/HCC) CHLAMYDIA TRACHOMATIS AND NEISSERIA GONORRHOEAE PCR Routine 12/11/2024 12:00 AM EST Contact with and (suspected) exposure to infections with a predominantly sexual mode of transmission Human immunodeficiency virus (HIV) disease ([facility]/HCC) CHLAMYDIA TRACHOMATIS AND NEISSERIA GONORRHOEAE PCR Routine 12/11/2024 12:00 AM EST Contact with and (suspected) exposure to infections with a predominantly sexual mode of transmission Human immunodeficiency virus (HIV) disease (CMS/HCC) CHLAMYDIA TRACHOMATIS AND NEISSERIA GONORRHOEAE PCR Routine 12/11/2024 12:00 AM EST Contact with and (suspected) exposure to infections with a predominantly sexual mode of transmission Human immunodeficiency virus (HIV) disease ([facility]/HCC) CULTURE WOUND DEEP Routine 12/11/2024 12 :00 AM EST Contact with and (suspected) exposure to infections with a predominantly sexual mode of transmission Human immunodeficiency virus (HIV) disease ([facility]CC) documented in this encounter Results * (ABNORMAL) Urinalysis with reflex microscopic (12/11/2024 12:00 AM EST) Specific [place] Urine 1.026 1.003 - 1.030 LAB URINALYSIS - AUTOMATED METHOD 12/11/2024 7:38 PM [facility] pH, Urine 5.5 5.0 - 8.0 pH LAB URINALYSIS - AUTOMATED METHOD 12/11/2024 7:38 PM [facility] Leukocytes, Urine Trace(A) Negative LAB URINALYSIS - AUTOMATED METHOD 12/11/2024 7:38 PM [facility] Nitrite, Urine Negative Negative LAB URINALYSIS - AUTOMATED METHOD 12/11/2024 7:38 PM [facility] Protein, Urine Trace <=Trace mg/dL LAB URINALYSIS - AUTOMATED METHOD 12/11/2024 7:38 PM [facility] Glucose, Urine Negative Negative mg/dL LAB URINALYSIS - AUTOMATED METHOD 12/11/2024 7:38 PM [facility] Ketones, Urine 15(A) Negative mg/dL LAB URINALYSIS - AUTOMATED METHOD 12/11/2024 7:38 PM [facility] Urobilinogen, Urine 1.0 0.2 - 1.0 mg/dL LAB URINALYSIS - AUTOMATED METHOD 12/11/2024 7:38 PM [facility] Bilirubin, Urine Negative Negative LAB URINALYSIS - AUTOMATED METHOD 12/11/2024 7:38 PM [facility] Blood, Urine Negative Negative LAB URINALYSIS - AUTOMATED METHOD 12/11/2024 7:38 PM [facility] RBC, Urine 4.7(H) 0 - 4 /HPF LAB URINALYSIS - AUTOMATED METHOD 12/11/2024 7:38 PM [facility] WBC, Urine 0.0 0 - 4 /HPF LAB URINALYSIS - AUTOMATED METHOD 12/11/2024 7:38 PM [facility] Squamous Epithelial, Urine 3 0 - 60 /LPF LAB URINALYSIS - AUTOMATED METHOD 12/11/2024 7:38 PM [facility] Bacteria, Urine Negative Negative /HPF LAB URINALYSIS - AUTOMATED METHOD 12/11/2024 7:38 PM [facility] Hyaline Casts, Urine 0.0 0 - 3 /LPF LAB URINALYSIS - AUTOMATED METHOD 12/11/2024 7:38 PM [facility] Urine Urine specimen obtained by clean catch procedure / Unknown 12/11/2024 12/11/2024 7:25 PM EST Gissel Vasquez MD LAB URINE ORDERAB LES [facility] [address] [place] [address], * Chlamydia trachomatis and Neisseria gonorrhoeae molecular study (12/11/2024 12:00 AM EST) Neisseria gonorrhoeae PCR Negative Negative LAB MOLECULAR DIAGNOSTICS METHOD 12/12/2024 9:[address] [facility] Chlamydia trachomatis PCR Negative Negative LAB MOLECULAR DIAGNOSTICS METHOD 12/12/2024 9:[address] [facility] Swab Rectum structure / Unknown 12/11/2024 12/11/2024 7:25 PM EST Gissel Vasquez MD LAB MICROBIOLOGY - GENERAL ORDERABLES Performing Organization Address City/[facility]/ZIP Co de Phone Number [facility] [address] [place] [address], * Chlamydia trachomatis and Neisseria gonorrhoeae molecular study (12/11/2024 12:00 AM EST) Neisseria gonorrhoeae PCR Negative Negative LAB MOLECULAR DIAGNOSTICS METHOD 12/12/2024 9:[address] [facility] Chlamydia trachomatis PCR Negative Negative LAB MOLECULAR DIAGNOSTICS METHOD 12/12/2024 9:[address] [facility] Swab Structure of anterior portion of neck / Unknown 12/11/2024 12/11/2024 7:25 PM EST Gissel Vasquez MD LAB MICROBIOLOGY - GENERAL ORDERABLES [facility] [address] [place] [address], [place] [phone] * Chlamydia trachomatis and Neisseria gonorrhoeae molecular study (12/11/2024 12:00 AM EST) Neisseria gonorrhoeae PCR Negative Negative LAB MOLECULAR DIAGNOSTICS METHOD 12/12/2024 9:[address] [facility] Chlamydia trachomatis PCR Negative Negative LAB MOLECULAR DIAGNOSTICS METHOD 12/12/2024 9:[address] [facility] Urine Urine specimen from urethra / Unknown 12/11/2024 12/11/2024 7:25 PM EST Gissel Vasquez MD LAB MICROBIOLOGY - GENERAL ORDERABLES [facility] [address] [place] [address], * (ABNORMAL) Culture wound deep (12/11/2024 12:00 AM EST) Culture, Wound Few Staphylococcus epidermidis(A) MARYAN 12/15/2024 12:[address] [facility] Comment: The organism value for this result has been updated. These results have been appended to the previously preliminary verified report. Edited result: Previously reported as Gram Positive Cocci on 12/15/2024 at 1224 EST. Culture, Wound Few Staphylococcus epidermidis(A) MARYAN 12/15/2024 12:[address] [facility] Comment: The organism value for this result has been updated. These results have been appended to the previously preliminary verified report. Edited result: Previously reported as Gram Positive Cocci on 12/15/2024 at 1224 EST. Gram Stain Result No polymorphonuclear leukocytes, No epithelial cells, and No organisms noted 12/15/2024 12:[address] [facility] Swab Structure of left foot / [...] Vasquez MD LAB MICROBIOLOGY - GENERAL ORDERABLES [facility] ([facility]) [facility] [address] [phone] documented in this encounter Visit Diagnoses Diagnosis Contact with and (suspected) exposure to infections with a predominantly sexual mode of transmission Human immunodeficiency virus (HIV) disease ([facility]) Human immunodeficiency virus [HIV] disease documented in this encounter Care Teams Public Affairs Director Relationship Specialty Start Date End Date Dominik Moses MD [address] [facility] [address] [place], [place] PCP - General Pediatrics 08/27/21 documented as of this encounter
--- OUTSIDE RECORDS SUMMARY | 2024-12-17 12:07 | XMS_ITS | Encounter Summary ---
Author Organization [facility] Address [address] [place] [address] Care Team Providers Care [employer] Senior Specialist Name Role Phone Dominik Moses MD Primary Care Provider Encounter Details Date Type Department Care Team (Late st Contact Info) Description 10/18/2024 Lab Requisition [facility] - Main Lab [address] [place] [address] Gissel Vasquez MD [address] [place] [address] Erythema intertrigo Social History Tobacco Use Types [...] significant pathogens noted. 10/21/2024 10:[address] [facility] ([facility]) [facility] Swab Urethral structure / Unknown 10/18/2024 10/18/2024 8:11 PM EST Gissel Vasquez MD LAB MICROBIOLOGY - GENERAL ORDERABLES [facility] ([facility]) [facility] [address] [place] [address], documented in this encounter Visit Diagnoses Diagnosis Erythema intertrigo Other specified erythematous condition documented in this encounter Care Teams [employer] Senior Specialist Relationship Specialty Start Date End Date Dominik Moses MD [address] [facility] [address] [place], [place] PCP - General Pediatrics 08/27/21 documented as of this encounter
== END 2024-12-17 13:17 | disposition home or self-care (01) ==
LOC: HO.HOP 11:12
PROVIDERS: Visit Provider Counselor Mental Health
DX: F41.1 Generalized anxiety disorder (principal); F33.1 Major depressive disorder, recurrent, moderate; F43.9 Reaction to severe stress, unspecified
CPT/HCPCS: 90837

== ENCOUNTER → 2024-12-17 11:12 | Outpatient (BNVA) | payer BC, MEDICAID, SELFPAY | PROVIDERS: Visit Provider Counselor Mental Health ==

== ENCOUNTER 2024-12-24 11:12 | Outpatient (AMB) | payer BC, MEDICAID, SELFPAY ==
--- NOTE | 2024-12-24 11:00 | MHC.WMTHER ---
Intake Intake Visit Reasons: VIDEO OP Therapy Allergies ciclopirox Allergy (Intermediate, Verified 10/27/24 10:56) Rash gluten Adverse Reaction (Mild, Verified 10/27/24 16:52) Itching lactose Adverse Reaction (Mild, Verified 10/27/24 16:52) Itching PFSH Medical History Chronic pelvic pain in male Cyst of epididymis Testicular pain, left Scrotal pain Trauma and stressor-related disorder Major depressive disorder, recurrent episode Generalized anxiety disorder HIV (human immunodeficiency virus infection) Social History Comment: Alcohol occasional Substance Use Type: Marijuana Sexual orientation: Lesbian/Saenz/Homosexual Gender identity: Male Behavioral Health Assessment Weight Management Therapy Therapy Notes Details Subjective: PT began psychiatric outpatient services at [facility] approximately one month ago, as [facility] required him to have a psychiatrist before undergoing a Ketamine assessment. His primary care provider (PCP) recently discontinued Cymbalta due to elevated liver enzymes. PT has been tapering off the medication under his PCP?s supervision and is set to start Trintellix for depression and anxiety. PT reports that when experiencing high levels of pain, he tends to sleep more than usual. Objective: PT presents for a follow-up visit via telehealth. During the session, we continued to address biased and fearful self-talk, which contributes to his anxiety and worry. We focused on developing and using more constructive cognitive strategies to manage these symptoms. Additionally, we worked on symptom management and coping skills. PT was supported in identifying ways to maintain positive interactions with his parents and engage in at least one pleasant activity per week. For example, he baked cookies last week as a positive activity. Assessment/Response: Mental status: PT reports continued feelings of depression, although he feels better overall due to a reduction in pain levels the past few days. Risk reported/identified: None. PT was very open and engaged in session. Assessment & Plan Assessment & Plan (1) Generalized anxiety disorder: Code(s): F41.1 - Generalized anxiety disorder (2) Major depressive disorder, recurrent episode: Code(s): F33.9 - Major depressive disorder, recurrent, unspecified Qualifiers: Major depression episode severity: moderate Qualified Code(s): F33.1 - Major depressive disorder, recurrent, moderate (3) Trauma and stressor-related disorder: Code(s): F43.9 - Reaction to severe stress, unspecified Plan Continue meeting on a weekly basis. Next varsha: 12/31/24 at 11am TH Telehealth Telehealth Telehealth Platform: Muse Location of provider rendering services: other ([facility], [place], [place]) Location of patient: address on file Patient Identification confirmed using: Name, : Yes Telehealth method: video Patient verbally consented to treatment: Yes Patient verbally consented to billing insurance company: Yes Patient informed of any privacy concerns related to visit: Yes Minutes spent on Phone/Video with Pt.: 55 Coding Level of Care Code Established Pt Tele Psytx >53 mins (26597) Patient Type Established Diagnoses Generalized anxiety disorder F41.1 Moderate episode of recurrent major depressive disorder F33.1 Major depression episode severity: moderate Trauma and stressor-related disorder F43.9 Time Spent (min) 55
== END 2024-12-24 12:28 | disposition home or self-care (01) ==
LOC: HO.HOP 11:12
PROVIDERS: Visit Provider Counselor Mental Health
DX: F41.1 Generalized anxiety disorder (principal); F33.1 Major depressive disorder, recurrent, moderate; F43.9 Reaction to severe stress, unspecified
CPT/HCPCS: 90837

== ENCOUNTER → 2025-01-21 11:13 | Outpatient (AMB) | payer BC, MEDICAID, SELFPAY ==
--- NOTE | 2025-01-21 11:05 | MHC.WMTHER ---
Intake Intake Visit Reasons: VIDEO OP Therapy Allergies ciclopirox Allergy (Intermediate, Verified 10/27/24 10:56) Rash gluten Adverse Reaction (Mild, Verified 10/27/24 16:52) Itching lactose Adverse Reaction (Mild, Verified 10/27/24 16:52) Itching PFSH Medical History Chronic pelvic pain in male Cyst of epididymis Testicular pain, left Scrotal pain Trauma and stressor-related disorder Major depressive disorder, recurrent episode Generalized anxiety disorder HIV (human immunodeficiency virus infection) Social History Comment: Alcohol occasional Substance Use Type: Marijuana Sexual orientation: Lesbian/Saenz/Homosexual Gender identity: Male Behavioral Health Assessment Weight Management Therapy Therapy Notes Details Subjective: The patient reports being busy with multiple appointments, traveling to the [place] area at least three times a week. He mentioned recent medication changes: Duloxetine was discontinued, and he started Trintellix 10mg once daily in the morning, which he began one week ago. Naltrexone was increased from 4.5mg to 9mg. The patient is now attending bi-weekly sessions with a pain psychologist. Objective: The patient presents for a follow-up visit via Telehealth and has not been seen since 12/24/2024. We discussed his current functioning, challenges, progress, and needs, including his difficulties with attendance due to conflicting medical appointments. The PHQ-9 was administered, which showed active symptoms of depression. We focused on addressing negative thinking patterns that trigger anxiety and lead to spirals resulting in panic symptoms. A coping plan was developed, emphasizing more calming and constructive behaviors. Various scenarios were reviewed to explore alternative responses. Additionally, we brainstormed ways for the patient to increase engagement in physical activity, specifically through walking, and discussed incorporating grounding exercises into his daily routine. Assessment/Response: Mental Status: The patient appears depressed but is oriented and actively engaged during the session. He shows insight into his thought patterns and is motivated to work on coping strategies. Risk Reported/Identified: No current risk of harm to self or others. No signs of suicidal ideation or self-harm. Questionnaires PHQ-9 Over the last 2 weeks, how often have you been bothered by any of the following problems? 1. Little interest or pleasure in doing things: nearly every day 2. Feeling down, depressed, or hopeless: nearly every day 3. Trouble falling or staying asleep, or sleeping too much: more than half the days 4. Feeling tired or having little energy: nearly every day 5. Poor appetite or overeating: more than half the days (overeating) 6. Feeling bad about yourself - or that you are a failure or have let yourself or your family down: nearly every day 7. Trouble concentrating on things, such as reading the newspaper or watching television: more than half the days 8. Moving or speaking so slowly that other people could have noticed. Or the opposite - being so fidgety or restless that you have been moving around a lot more than usual: not at all (Feeling he's always fidgety, no changes. ) 9. Thoughts that you would be better off or of hurting yourself in some way: not at all Total score: 18 Depression Screening Interpretation: Positive Depression Screening Done: Yes 55575 - PHQ-9 Billing: Yes Source: Developed by Drs. Chilango Melton, Martita Mon, Gael Ashley and colleagues, with an educational jose angel from [employer]. Assessment & Plan Assessment & Plan (1) Generalized anxiety disorder: Code(s): F41.1 - Generalized anxiety disorder (2) Major depressive disorder, recurrent episode: Code(s): F33.9 - Major depressive disorder, recurrent, unspecified Qualifiers: Major depression episode severity: moderate Qualified Code(s): F33.1 - Major depressive disorder, recurrent, moderate (3) Trauma and stressor-related disorder: Code(s): F43.9 - Reaction to severe stress, unspecified Plan Due to ongoing medical appointments, we will transition from weekly to bi-weekly sessions. On weeks when the patient does not meet with this provider, he will continue his sessions with the pain psychologist. Encourage the patient to track his mood and anxiety levels between sessions and utilize the coping strategies discussed (e.g., grounding exercises, walking, constructive thinking). Monitor medication effects, especially after the recent adjustments, and discuss any side effects or concerns at the next visit. Continue to explore alternative ways to manage anxiety and depressive symptoms through behavioral interventions. Next varsha: 01/16/25 at 11am, Video. Telehealth Telehealth Telehealth Platform: [employer] Location of provider rendering services: other (home office, [place], [place]) Location of patient: address on file Patient Identification confirmed using: Name, : Yes Telehealth method: video Patient verbally consented to treatment: Yes Patient verbally consented to billing insurance company: Yes Patient informed of any privacy concerns related to visit: Yes Minutes spent on Phone/Video with Pt.: 60 Coding Level of Care Code Established Pt Tele Psytx >53 mins (69386) Patient Type Established Diagnoses Generalized anxiety disorder F41.1 Moderate episode of recurrent major depressive disorder F33.1 Major depression episode severity: moderate Trauma and stressor-related disorder F43.9 Additional Codes PHQ-9 - 79448 - PHQ-9 Billing: Yes ([id number]) Time Spent (min) 60
--- OUTSIDE RECORDS SUMMARY | 2025-01-21 13:54 | XMS_ITS | Encounter Summary ---
Author Organization [facility] Address [address] [place] [address] Care Team Providers Care Honeycomb Blanket Maker Name Role Phone Dominik Moses MD Primary Care Provider Encounter Details Date Type Department Care Team (Latest Contact Info) Description 12/11/[address] [facility] - Main Lab [address] [place] [address] Gissel Vasquez MD [address] [place] [id number] Contact with and (suspected) exposure to infections with a predominantly sexual mode of transmission; Human immunodeficiency virus (HIV) disease (CMS/HCC) Social History Tobacco Use Types Packs/Day Years Used Date Smoking Tobacco: Never Smokeless Tobacco: Never Alcohol Use Standard Drinks/Week Comments Yes 0 (1 standard drink = 0.6 oz pur e alcohol) Sex and Gender Information Value Date Recorded Sex Assigned at Not on file Legal Sex Male 11:46 AM EST Gender Identity Not on file Sexual Orientation Not on file documented as of this encounter Plan of Treatment Not on file documented as of this encounter Procedures Procedure Name Priority Date/Time Associated Diagnosis Comments URINALYSIS WITH REFLEX MICROSCOPIC Routine 12/11/2024 12:00 AM EST Contact with and (suspected) exposure to infections with a predominantly sexual mode of transmission Human immunodeficiency virus (HIV) disease (CMS/HCC) URINALYSIS WITH REFLEX MICROSCOPIC Routine 12/11/2024 12:00 AM EST Contact with and (suspected) exposure to infections with a predominantly sexual mode of transmission Human immunodeficiency virus (HIV) disease (CMS/HCC) CHLAMYDIA TRACHOMATIS AND NEISSERIA GONORRHOEAE PCR Routine 12/11/2024 12:00 AM EST Contact with and (suspected) exposure to infections with a predominantly sexual mode of transmission Human immunodeficiency virus (HIV) disease ([facility]/HCC) CHLAMYDIA TRACHOMATIS AND NEISSERIA GONORRHOEAE PCR Routine 12/11/2024 12:00 AM EST Contact with and (suspected) exposure to infections with a predominantly sexual mode of transmission Human immunodeficiency virus (HIV) disease ([facility]/HCC) CHLAMYDIA TRACHOMATIS AND NEISSERIA GONORRHOEAE PCR Routine 12/11/2024 12:00 AM EST Contact with and (suspected) exposure to infections with a predominantly sexual mode of transmission Human immunodeficiency virus (HIV) disease ([facility]/HCC) CULTURE WOUND DEEP Routine 12/11/2024 12 :00 AM EST Contact with and (suspected) exposure to infections with a predominantly sexual mode of transmission Human immunodeficiency virus (HIV) disease ([facility]) documented in this encounter Results * (ABNORMAL) Urinalysis with reflex microscopic (12/11/2024 12:00 AM EST) Specific [place] Urine 1.026 1.003 - 1.030 LAB URINALYSIS - AUTOMATED METHOD 12/11/2024 7:38 PM [facility] pH, Urine 5.5 5.0 - 8.0 pH LAB URINALYSIS - AUTOMATED METHOD 12/11/2024 7:38 PM [facility] Leukocytes, Urine Trace(A) Negative LAB URINALYSIS - AUTOMATED METHOD 12/11/2024 7:38 PM [facility] Nitrite, Urine Negative Negative LAB URINALYSIS - AUTOMATED METHOD 12/11/2024 7:38 PM [facility] Protein, Urine Trace <=Trace mg/dL LAB URINALYSIS - AUTOMATED METHOD 12/11/2024 7:38 PM [facility] Glucose, Urine Negative Negative mg/dL LAB URINALYSIS - AUTOMATED METHOD 12/11/2024 7:38 PM [facility] Ketones, Urine 15(A) Negative mg/dL LAB URINALYSIS - AUTOMATED METHOD 12/11/2024 7:38 PM [facility] Urobilinogen, Urine 1.0 0.2 - 1.0 mg/dL LAB URINALYSIS - AUTOMATED METHOD 12/11/2024 7:38 PM [facility] Bilirubin, Urine Negative Negative LAB URINALYSIS - AUTOMATED METHOD 12/11/2024 7:38 PM [facility] Blood, Urine Negative Negative LAB URINALYSIS - AUTOMATED METHOD 12/11/2024 7:38 PM [facility] RBC, Urine 4.7(H) 0 - 4 /HPF LAB URINALYSIS - AUTOMATED METHOD 12/11/2024 7:38 PM [facility] WBC, Urine 0.0 0 - 4 /HPF LAB URINALYSIS - AUTOMATED METHOD 12/11/2024 7:38 PM [facility] Squamous Epithelial, Urine 3 0 - 60 /LPF LAB URINALYSIS - AUTOMATED METHOD 12/11/2024 7:38 PM [facility] Bacteria, Urine Negative Negative /HPF LAB URINALYSIS - AUTOMATED METHOD 12/11/2024 7:38 PM [facility] Hyaline Casts, Urine 0.0 0 - 3 /LPF LAB URINALYSIS - AUTOMATED METHOD 12/11/2024 7:38 PM [facility] Urine Urine specimen obtained by clean catch procedure / Unknown 12/11/2024 12/11/2024 7:25 PM EST us Gissel Vasquez MD LAB URINE ORDERABLES Mohini caraballo Result [facility] [address] [place] [address], * Chlamydia trachomatis and Neisseria gonorrhoeae molecular study (12/11/2024 12:00 AM EST) Neisseria gonorrhoeae PCR Negative Negative LAB MOLECULAR DIAGNOSTICS METHOD 12/12/2024 9:[address] [facility] Chlamydia trachomatis PCR Negative Negative LAB MOLECULAR DIAGNOSTICS METHOD 12/12/2024 9:[address] [facility] Swab Rectum structure / Unknown 12/11/2024 12/11/2024 7:25 PM EST us Gissel Vasquez MD LAB MICROBIOLOGY - GENERA L ORDERABLES Final Result [facility] [address] [place] [address], [place] [phone] * Chlamydia trachomatis and Neisseria gonorrhoeae molecular study (12/11/2024 12:00 AM EST) Neisseria gonorrhoeae PCR Negative Negative LAB MOLECULAR DIAGNOSTICS METHOD 12/12/2024 9:[address] [facility] Chlamydia trachomatis PCR Negative Negative LAB MOLECULAR DIAGNOSTICS METHOD 12/12/2024 9:[address] [facility] Swab Structure of anterior portion of neck / Unknown 12/11/2024 12/11/2024 7:25 PM EST Gissel Vasquez MD LAB MICROBIOLOGY - GENERA L ORDERABLES Final Result [facility] [address] [place] [address], [place] [phone] * Chlamydia trachomatis and Neisseria gonorrhoeae molecular study (12/11/2024 12:00 AM EST) Neisseria gonorrhoeae PCR Negative Negative LAB MOLECULAR DIAGNOSTICS METHOD 12/12/2024 9:[address] [facility] Chlamydia trachomatis PCR Negative Negative LAB MOLECULAR DIAGNOSTICS METHOD 12/12/2024 9:[address] [facility] Urine Urine specimen from urethra / Unknown 12/11/2024 12/11/2024 7:25 PM EST us Gissel Vasquez MD LAB MICROBIOLOGY - GENERA L ORDERABLES Final Result [facility] [address] [place] [address], * (ABNORMAL) Culture wound deep (12/11/2024 12:00 AM EST) Culture, Wound Few Staphylococcus epidermidis(A) MARYAN 12/15/2024 12:[address] [facility] Comment: The organism value for this result has been updated. These results have been appended to the previously preliminary verified report. Edited result: Previously reported as Gram Positive Cocci on 12/15/2024 at 1224 EST. Culture, Wound Few Staphylococcus epidermidis(A) MARYAN 12/15/2024 12:[address] [facility] Comment: The organism value for this result has been updated. These results have been appended to the previously preliminary verified report. Edited result: Previously reported as Gram Positive Cocci on 12/15/2024 at 1224 EST. Gram Stain Result No polymorphonuclear leukocytes, No epithelial cells, and No organisms noted 12/15/2024 12:[address] [facility] Swab Structure of left foot [...] MARYAN 2 ug/ml: Susceptible Staphylococcus epidermidis Tetracycline MARYNA 2 ug/ml: Susceptible Staphylococcus epidermidis Rifampin MARYAN <=0.5 ug/ml: Susceptible us Gissel Vasquez MD LAB MICROBIOLOGY - GENERA L ORDERABLES Final Result [facility] ([facility]) [facility] [address] [place] [address], documented in this encounter Visit Diagnoses Diagnosis Contact with and (suspected) exposure to infections with a predominantly sexual mode of transmission Human immunodeficiency virus (HIV) disease ([facility]) Human immunodeficiency virus [HIV] disease documented in this encounter Care Teams Honeycomb Blanket Maker Relationship Specialty Start Date End Date Dominik Moses MD [address] [facility] [address] [place], [place] PCP - General Pediatrics 08/27/21 documented as of this encounter
--- OUTSIDE RECORDS SUMMARY | 2025-01-21 13:54 | XMS_ITS | Clinical Summary ---
Author Organization [address] [facility] Address [address] [place] [address] Phone Care Team Providers Care It Investment/Portfolio Manager Name Role Phone Dominik Moses MD Primary Care Provider Encounters Date Type Department Care Team Description 12/11/2024 Lab Requisition [facility] - Main Lab [address] [place] [address] Gissel Vasquez MD Contact with and (suspected) exposure to infections with a predominantly sexual mode of transmission; Human immunodeficiency virus (HIV) disease ([facility]/HCC) from Last 3 Months Medical History Medical History Date Comments Myopia DX:Myopia HIV infection (CMS/HCC) DX:HIV i nfection ([facility]) Family History Medical History Relation Name Comments [...] 2-dose series) 2004 COVID-19 Vaccine (#1) 2007 HPV Vaccines (1 - Risk male 3-dose series) 2013 Meningococcal B Vacine (1 of 2 - Standard) 2018 MMR Vaccines (1 of 2 - Risk 2-dose series) 2020 DTaP,Tdap,and Td Vaccines (1 - Tdap) 2021 Hepatitis A Vaccines (1 of 2 - Risk 2-dose series) 2021 Hepatitis B Vaccines (1 of 3 - 19+ 3-dose series) 2021 Pneumococcal Vaccine: Pediat rics (0 to 5 Years) and At-Risk Patients (6 to 64 Years) (1 of 2 - PCV) 2021 Depression Screening 10/11/2022 Hepatitis C Screening [...] of transmission Human immunodeficiency virus (HIV) disease ([facility]/HCC) URINALYSIS WITH REFLEX MICROSCOPIC Routine 12/11/2024 12:00 AM EST Contact with and (suspected) exposure to infections with a predominantly sexual mode of transmission Human immunodeficiency virus (HIV) disease (CMS/HCC) CHLAMYDIA TRACHOMATIS AND NEISSERIA GONORRHOEAE PCR Routine 12/11/2024 12:00 AM EST Contact with and (suspected) exposure to infections with a predominantly sexual mode of transmission Human immunodeficiency virus (HIV) disease ([facility]/HCC) CHLAMYDIA TRACHOMATIS AND NEISSERIA GONORRHOEAE PCR Routine 12/11/2024 12:00 AM EST Contact with and (suspected) exposure to infections with a predominantly sexual mode of transmission Human immunodeficiency virus (HIV) disease ([facility]/HCC) CHLAMYDIA TRACHOMATIS AND NEISSERIA GONORRHOEAE PCR Routine 12/11/2024 12:00 AM EST Contact with and (suspected) exposure to infections with a predominantly sexual mode of transmission Human immunodeficiency virus (HIV) disease ([facility]/HCC) CULTURE WOUND DEEP Routine 12/11/2024 12 :00 AM EST Contact with and (suspected) exposure to infections with a predominantly sexual mode of transmission Human immunodeficiency virus (HIV) disease ([facility]/HCC) from Last 3 Months Results * (ABNORMAL) Urinalysis with reflex microscopic (12/11/2024 12:00 AM EST) Pathologist [facility] Specific [place] Urine 1.026 1.003 - 1.030 LAB URINALYSIS - AUTOMATED METHOD 12/11/2024 7:38 PM [facility] pH, Urine 5.5 5.0 - 8.0 pH LAB URINALYSIS - AUTOMATED METHOD 12/11/2024 7:38 PM [facility] Leukocytes, Urine Trace(A) Negative LAB URINALYSIS - AUTOMATED METHOD 12/11/2024 7:38 PM [facility] Nitrite, Urine Negative Negative LAB URINALYSIS - AUTOMATED METHOD 12/11/2024 7:38 PM [facility] Protein, Urine Trace <=Trace mg/dL LAB URINALYSIS - AUTOMATED METHOD 12/11/2024 7:38 PM [facility] Glucose, Urine Negative Negative mg/dL LAB URINALYSIS - AUTOMATED METHOD 12/11/2024 7:38 PM [facility] Ketones, Urine 15(A) Negative mg/dL LAB URINALYSIS - AUTOMATED METHOD 12/11/2024 7:38 PM [facility] Urobilinogen, Urine 1.0 0.2 - 1.0 mg/dL LAB URINALYSIS - AUTOMATED METHOD 12/11/2024 7:38 PM [facility] Bilirubin, Urine Negative Negative LAB URINALYSIS - AUTOMATED METHOD 12/11/2024 7:38 PM [facility] Blood, Urine Negative Negative LAB URINALYSIS - AUTOMATED METHOD 12/11/2024 7:38 PM [facility] RBC, Urine 4.7(H) 0 - 4 /HPF LAB URINALYSIS - AUTOMATED METHOD 12/11/2024 7:38 PM [facility] WBC, Urine 0.0 0 - 4 /HPF LAB URINALYSIS - AUTOMATED METHOD 12/11/2024 7:38 PM [facility] Squamous Epithelial, Urine 3 0 - 60 /LPF LAB URINALYSIS - AUTOMATED METHOD 12/11/2024 7:38 PM [facility] Bacteria, Urine Negative Negative /HPF LAB URINALYSIS - AUTOMATED METHOD 12/11/2024 7:38 PM [facility] Hyaline Casts, Urine 0.0 0 - 3 /LPF LAB URINALYSIS - AUTOMATED METHOD 12/11/2024 7:38 PM [facility] Urine Urine specimen obtained by clean catch procedure / Unknown 12/11/2024 12/11/2024 7:25 PM EST us Gissel Vasquez MD LAB URINE ORDERABLES Mohini caraballo Result [facility] [address] [place] [address], * Chlamydia trachomatis and Neisseria gonorrhoeae molecular study (12/11/2024 12:00 AM EST) Only the most recent of3 resultswithin the time period is included. Neisseria gonorrhoeae PCR Negative Negative LAB MOLECULAR DIAGNOSTICS METHOD 12/12/2024 9:14 AM EST [facility] Chlamydia trachomatis PCR Negative Negative LAB MOLECULAR DIAGNOSTICS METHOD 12/12/2024 9:14 AM [facility] Swab Rectum structure / Unknown 12/11/2024 12/11/2024 7:25 PM EST us Gissel Vasquez MD LAB MICROBIOLOGY - GENERA L ORDERABLES Final Result [facility] [address] [place] [address], * (ABNORMAL) Culture wound deep (12/11/2024 12:00 AM EST) Culture, Wound Few Staphylococcus epidermidis(A) MARYAN 12/15/2024 12:33 PM [facility] Comment: The organism value for this result has been updated. These results have been appended to the previously preliminary verified report. Edited result: Previously reported as Gram Positive Cocci on 12/15/2024 at 1224 EST. Culture, Wound Few Staphylococcus epidermidis(A) MARYAN 12/15/2024 12:33 PM EST [facility] Comment: The organism value for this result has been updated. These results have been appended to the previously preliminary verified report. Edited result: Previously reported as Gram Positive Cocci on 12/15/2024 at 1224 EST. Gram Stain Result No polymorphonuclear leukocytes, No epithelial cells, and No organisms noted 12/15/2024 12:33 PM [facility] Swab Structure of left foot [...] Susceptible Gissel Vasquez MD LAB MICROBIOLOGY - GENERA L ORDERABLES Final Result [facility] ([facility]) [facility] [address] [place] [address], from Last 3 Months Insurance [facility] MEDICAID - [place] Care Teams It Investment/Portfolio Manager Relationship Specialty Start Date End Date Dominik Moses MD [address] PCP - General Pediatrics 08/27/21
--- OUTSIDE RECORDS SUMMARY | 2025-01-21 13:54 | XMS_ITS | Data Portability ---
Author Organization [place] [facility], Allergy Address [address] [address] Care Team Providers Care Engineering Project Designer Name Role Phone ISABEL TRAN Primary Care Provider [phone] ISABEL TRAN Referring Provider [phone] JANES TRAN Primary Care Provider Assessment No [...] Address Organization Details Recorded Time Bilateral tinnitus 19929084922 02 Active 2022 Tinnitus, bilateral ; Note: Date Diagnosed : 04/25/2023 2:02 PM (H93.13) Not Available [facility] 4 03:17:50 Jaw pain 231321657 Active 2022 Jaw pain; Note: Date Diagnosed : 04/25/2023 2:07 PM (R68.84) Not Available [facility] 4 03:17:49 Chronic tonsillit is 30751181 Active 2023 MARCOS SABA MD [address] [place] [address], [facility] [place], [address] , [facility] - [facility] 4 11:34:25 Bleeding from nose 186517446 Active 2023 Epistaxis ; Note: Date Diagnosed : 12/21/2023 1:51 PM (R04.0) Not Available [facility] 4 03:17:49 Chronic disease of tonsils AND/OR adenoids 68776969 Active 2023 Calculus, tonsil; Note: Date Diagnosed : 12/21/2023 1:50 PM (J35.8) Not Available [facility] 03:17:50 Hemoptysi s 61868389 Active 2023 Hemoptysi s; Note: Date Diagnosed : 12/22/2023 3:29 PM (R04.2) Not Available [facility] 4 03:17:50 Hypertrop hy of tonsils 67554343 Active 2023 Hypertrop hy of tonsils; Note: Date Diagnosed : 12/11/2023 1:00 PM (J35.1) Not Available [facility] 4 03:17:50 Problem Notes None recorded. Procedures [...] capsule,d elayed release active Medicati on ID: [id number] B rand Name: duloxeti ne Send Method: [...] Updated DateTime 05/17/2024 177.8 cm 25.8 kg/m2 90246.63 g Kasey Farrell [place] - Ear Nose [...] Note [id number] MARCOS SABA MD [facility] [address] [address] 05/17/2024 13:34:24 05/20/2024 17:12:20 Chronic tonsillitis 38442317 J35.01 23-year-ol d male presents today for [...] ID Guarantor Name 05/17/2024 1 [place] [facility] ([place]) [id number] Casper Inman [id number] Casper Inman 05/17/2024 2 [place] [facility] Casper Inman [id number] Casper Inman Notes Date Note Type Note [...] bleeding in several weeks. MARCOS SABA MD [address] [place] [address], [address], [facility] - [facility] 05/18/2024 11:39:09
--- OUTSIDE RECORDS SUMMARY | 2025-01-21 13:54 | XMS_ITS | Encounter Summary ---
Author Organization [facility] Address [address] [place] [address] Care Team Providers Care Senior Python Developer Name Role Phone Dominik Moses MD Primary Care Provider Encounter Details Date Type Department Care Team (Late st Contact Info) Description 10/18/2024 Lab Requisition [facility] - Main Lab [address] [place] [address] Gissel Vasquez MD [address] [place] [address] Erythema intertrigo Social History Tobacco Use Types [...] significant pathogens noted. 10/21/2024 10:53 AM EST [facility]) [facility] Swab Urethral structure / Unknown 10/18/2024 10/18/2024 8:11 PM EST us Gissel Vasquez MD LAB MICROBIOLOGY - GENERA L ORDERABLES Final Result [facility] ([facility]) [facility] [address] [place] [address], documented in this encounter Visit Diagnoses Diagnosis Erythema intertrigo Other specified erythematous condition documented in this encounter Care Teams Senior Python Developer Relationship Specialty Start Date End Date Dominik Moses MD [address] [facility] [address] [place], [place] PCP - General Pediatrics 08/27/21 documented as of this encounter
--- OUTSIDE RECORDS SUMMARY | 2025-01-21 13:54 | XMS_ITS | Encounter Summary ---
Author Organization [facility] Address [address] [place] [address] Phone Care Team Providers Care Grounds Cleaner Name Role Phone Blanco Webster MD Primary Care Provider [phone] Encounter Details Date Type Department Care Team (Late st Contact Info) Description 04/18/2013 Documentation [facility] Family Medicine [address] [place], [place] [id number] Family Medicine, Physician [address] [place] [address] Social History Tobacco Use Types Packs/Day Years [...] on filedocumented in this encounter Care Teams Grounds Cleaner Relationship Specialty Start Date End Date Blanco Webster MD [address] [place] [address] [place] [address] PCP - General 03/21/18 documented as of this encounter
--- OUTSIDE RECORDS SUMMARY | 2025-01-21 13:54 | XMS_ITS | Encounter Summary ---
Author Organization [facility] Address [address] [place] [address] Care Team Providers Care Director Web Name Role Phone Dominik Moses MD Primary Care Provider Encounter Details Date Type Department Care Team (Late st Contact Info) Description 10/18/2024 Lab Requisition [facility] - Main Lab [address] [place] [address] Gissel Vasquez MD [address] [place] [address] Unspecified conjunctivitis Social History Tobacco Use Types [...] No pathogens isolated. 10/21/2024 10:51 AM EST [facility] Gram Stain Result No polymorphonuclear leukocytes, No epithelial cells, and No organisms noted 10/21/2024 10:51 AM EST [facility] Swab 10/18/2024 10/18/2024 8:0 7 PM EST us Gissel Vasquez MD LAB MICROBIOLOGY - GENERA L ORDERABLES Final Result [facility] [address] [place] [address], documented in this encounter Visit Diagnoses Diagnosis Unspecified conjunctivitis documented in this encounter Care Teams Director Web Relationship Specialty Start Date End Date Dominik Moses MD [address] [facility] [address] [place], [place] PCP - General Pediatrics 08/27/21 documented as of this encounter
--- OUTSIDE RECORDS SUMMARY | 2025-01-21 13:54 | XMS_ITS | Clinical Summary ---
Author Organization [facility] Address [address] [place] [address] Phone Care Team Providers Care Pharmacy Picking Tech Name Role Phone Blanco Webster MD Primary Care Provider [phone] Social History Tobacco Use Types Packs/Day Years [...] age to complete this topic Care Teams Pharmacy Picking Tech Relationship Specialty Start Date End Date Blanco Webster MD [facility] [facility] [place] [address] PCP - General 03/21/18
== END ==
LOC: HO.HOP 11:13
PROVIDERS: Visit Provider Counselor Mental Health
DX: F41.1 Generalized anxiety disorder (principal); F33.1 Major depressive disorder, recurrent, moderate; F43.9 Reaction to severe stress, unspecified
CPT/HCPCS: 90837

== ENCOUNTER → 2025-01-21 11:13 | Outpatient (BNVA) | payer BC, MEDICAID, SELFPAY | PROVIDERS: Visit Provider Counselor Mental Health ==

== ENCOUNTER 2025-02-04 11:16 | Outpatient (AMB) | payer BC, MEDICAID, SELFPAY ==
--- NOTE | 2025-02-04 11:10 | A.OFFWM_ITS ---
Intake Intake Visit Reasons: VIDEO OP Therapy Allergies ciclopirox Allergy (Intermediate, Verified 10/27/24 10:56) Rash gluten Adverse Reaction (Mild, Verified 10/27/24 16:52) Itching lactose Adverse Reaction (Mild, Verified 10/27/24 16:52) Itching PFSH Medical History Chronic pelvic pain in male Cyst of epididymis Testicular pain, left Scrotal pain Trauma and stressor-related disorder Major depressive disorder, recurrent episode Generalized anxiety disorder HIV (human immunodeficiency virus infection) Social History Comment: Alcohol occasional Substance Use Type: Marijuana Sexual orientation: Lesbian/Saenz/Homosexual Gender identity: Male Behavioral Health Assessment Weight Management Therapy Therapy Notes Details Subjective: Patient initiated ketamine treatment yesterday. Despite experiencing pain, he chose to go out with a friend, which he reports was a positive experience. Family dynamics are generally stable; however, there have been recent fluctuations due to his mother's alcohol use. The patient feels that his current psychiatric medication regimen is effective, noting periods where he experiences relief from depressive symptoms, though he doesn't feel entirely free from them. Objective: The patient presents for a follow-up behavioral health appointment via Telehealth. Interventions implemented during today's session include: * Cognitive Processing Therapy (CPT): Addressed maladaptive thought patterns related to trauma and depression. * Talk Therapy: Explored recent experiences and emotional responses to social interactions. * Supportive Therapy: Provided validation and encouragement to reinforce coping strategies and resilience.? Assessment/Response: * Mental Status: Alert and oriented; affect congruent with mood; speech normal in rate and volume; thought process coherent. * Risk Reported/Identified: No current suicidal ideation or self-harm behaviors reported. Assessment & Plan Assessment & Plan (1) Generalized anxiety disorder: Code(s): F41.1 - Generalized anxiety disorder (2) Major depressive disorder, recurrent episode: Code(s): F33.9 - Major depressive disorder, recurrent, unspecified Qualifiers: Major depression episode severity: moderate Qualified Code(s): F33.1 - Major depressive disorder, recurrent, moderate (3) Trauma and stressor-related disorder: Code(s): F43.9 - Reaction to severe stress, unspecified Plan - Continue monitoring response to ketamine treatment in conjunction with psychotherapy. - Encourage patient to maintain engagement in social activities and support networks to enhance therapeutic outcomes. - Follow-up appointment in 2 weeks. Next varsha: 02/18/2025 at 11am, Telehealth Telehealth Telehealth Telehealth Platform: Media [employer] Location of provider rendering services: other ([facility], [place], [place]) Location of patient: address on file Patient Identification confirmed using: Name, : Yes Telehealth method: video Patient verbally consented to treatment: Yes Patient verbally consented to billing insurance company: Yes Patient informed of any privacy concerns related to visit: Yes Minutes spent on Phone/Video with Pt.: 50 Coding Level of Care Code Established Pt Tele Psytx 45 mins ([id number]) Patient Type Established Diagnoses Generalized anxiety disorder F41.1 Moderate episode of recurrent major depressive disorder F33.1 Major depression episode severity: moderate Trauma and stressor-related disorder F43.9 Time Spent (min) 50
== END 2025-02-04 12:49 | disposition home or self-care (01) ==
LOC: HO.HOP 11:16
PROVIDERS: Visit Provider Counselor Mental Health
DX: F41.1 Generalized anxiety disorder (principal); F33.1 Major depressive disorder, recurrent, moderate; F43.9 Reaction to severe stress, unspecified
CPT/HCPCS: 90834

== ENCOUNTER → 2025-02-04 11:16 | Outpatient (BNVA) | payer BC, MEDICAID, SELFPAY | PROVIDERS: Visit Provider Counselor Mental Health ==

== ENCOUNTER 2025-02-18 11:35 | Outpatient (AMB) | payer BC, MEDICAID, SELFPAY ==
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
--- OUTSIDE RECORDS SUMMARY | 2025-02-18 14:12 | XMS_ITS | Encounter Summary ---
Author Organization [facility] Address [address] [place] [address] Phone Care Team Providers Care Licensed Surveyor Name Role Phone Blanco Webster MD Primary Care Provider [phone] Encounter Details Date Type Department Care Team (Late st Contact Info) Description 04/18/2013 Documentation [facility] [place] [facility] [address] [place], [place] [id number] Family Medicine, Physician [address] [place] [address] Social History Tobacco Use Types Packs/Day Years [...] on filedocumented in this encounter Care Teams Licensed Surveyor Relationship Specialty Start Date End Date Blanco Webster MD [address] [place] [address] [place] [address] PCP - General 03/21/18 documented as of this encounter
--- OUTSIDE RECORDS SUMMARY | 2025-02-18 14:12 | XMS_ITS | Data Portability ---
Author Organization [place] [facility], Allergy Address [address] [address] Care Team Providers Care Hepatologist Name Role Phone ISABEL TRAN Primary Care Provider [phone] ISABEL TRAN Referring Provider [phone] JANES TRAN Primary Care Provider Assessment No [...] Address Organization Details Recorded Time Bilateral tinnitus 78257827354 02 Active 2022 Tinnitus, bilateral ; Note: Date Diagnosed : 04/25/2023 2:02 PM (H93.13) Not Available [facility] 4 03:17:50 Jaw pain 767795921 Active 2022 Jaw pain; Note: Date Diagnosed : 04/25/2023 2:07 PM (R68.84) Not Available [facility] 4 03:17:49 Chronic tonsillit is 75037930 Active 2023 MARCOS SABA MD [address] [place] [address], [facility] [place], [address] , [facility] 4 11:34:25 Bleeding from nose 036073573 Active 2023 Epistaxis ; Note: Date Diagnosed : 12/21/2023 1:51 PM (R04.0) Not Available [facility] 4 03:17:49 Chronic disease of tonsils AND/OR adenoids 44462419 Active 2023 Calculus, tonsil; Note: Date Diagnosed : 12/21/2023 1:50 PM (J35.8) Not Available [facility] 03:17:50 Hemoptysi s 65134885 Active 2023 Hemoptysi s; Note: Date Diagnosed : 12/22/2023 3:29 PM (R04.2) Not Available [facility] 4 03:17:50 Hypertrop hy of tonsils 48095159 Active 2023 Hypertrop hy of tonsils; Note: Date Diagnosed : 12/11/2023 1:00 PM (J35.1) Not Available [facility] 4 03:17:50 Problem Notes None recorded. Procedures [...] capsule,d elayed release active Medicati on ID: [id number] B rand Name: duloxeti ne Send Method: [...] Updated DateTime 05/17/2024 177.8 cm 25.8 kg/m2 38568.63 g Kasey Farrell [place] - Ear Nose [...] Note [id number] MARCOS SABA MD [facility] [address] [address] 05/17/2024 13:34:24 05/20/2024 17:12:20 Chronic tonsillitis 73517694 J35.01 23-year-ol d male presents today for [...] ID Guarantor Name 05/17/2024 1 [place] [facility] (O) [id number] Casper Inman [id number] Casper Inman 05/17/2024 2 [place] [facility] Casper Inman [id number] Casper Inman Notes Date Note Type Note [...] bleeding in several weeks. MARCOS SABA MD [address] [place] [address], [phone], [facility] 05/18/2024 11:39:09
--- OUTSIDE RECORDS SUMMARY | 2025-02-18 14:12 | XMS_ITS | Encounter Summary ---
Author Organization [facility] Address [address] [place] [address] Care Team Providers Care Campus Rep Name Role Phone Dominik Moses MD Primary Care Provider [phone] Encounter Details Date Type Department Care Team (Latest Contact Info) Description 12/11/2024 Lab Requisition [facility] - Main Lab [address] [place] [address] Gissel Vasquez MD [address] [place] [address] Contact with and (suspected) exposure to infections [...] of transmission Human immunodeficiency virus (HIV) disease ([facility]) CHLAMYDIA TRACHOMATIS AND NEISSERIA GONORRHOEAE PCR Routine 12/11/2024 12:00 AM EST Contact with and (suspected) exposure to infections with a predominantly sexual mode of transmission Human immunodeficiency virus (HIV) disease ([facility]) CHLAMYDIA TRACHOMATIS AND NEISSERIA GONORRHOEAE PCR Routine 12/11/2024 12:00 AM EST Contact with and (suspected) exposure to infections with a predominantly sexual mode of transmission Human immunodeficiency virus (HIV) disease ([facility]CC) CULTURE WOUND DEEP Routine 12/11/2024 12 :00 AM EST Contact with and (suspected) exposure to infections with a predominantly sexual mode of transmission Human immunodeficiency virus (HIV) disease ([facility]) documented in this encounter Results * (ABNORMAL) Urinalysis with reflex microscopic (12/11/2024 12:00 AM EST) Specific [place] Urine 1.026 1.003 - 1.030 LAB URINALYSIS - AUTOMATED METHOD 12/11/2024 7:38 PM [facility] pH, Urine 5.5 5.0 - 8.0 pH LAB URINALYSIS - AUTOMATED METHOD 12/11/2024 7:38 PM [facility] Leukocytes, Urine Trace(A) Negative LAB URINALYSIS - AUTOMATED METHOD 12/11/2024 7:38 PM [facility] Nitrite, Urine Negative Negative LAB URINALYSIS - AUTOMATED METHOD 12/11/2024 7:38 PM [facility] Protein, Urine Trace <=Trace mg/dL LAB URINALYSIS - AUTOMATED METHOD 12/11/2024 7:38 PM [facility] Glucose, Urine Negative Negative mg/dL LAB URINALYSIS - AUTOMATED METHOD 12/11/2024 7:38 PM [facility] Ketones, Urine 15(A) Negative mg/dL LAB URINALYSIS - AUTOMATED METHOD 12/11/2024 7:38 PM [facility] Urobilinogen, Urine 1.0 0.2 - 1.0 mg/dL LAB URINALYSIS - AUTOMATED METHOD 12/11/2024 7:38 PM [facility] Bilirubin, Urine Negative Negative LAB URINALYSIS - AUTOMATED METHOD 12/11/2024 7:38 PM [facility] Blood, Urine Negative Negative LAB URINALYSIS - AUTOMATED METHOD 12/11/2024 7:38 PM [facility] RBC, Urine 4.7(H) 0 - 4 /HPF LAB URINALYSIS - AUTOMATED METHOD 12/11/2024 7:38 PM [facility] WBC, Urine 0.0 0 - 4 /HPF LAB URINALYSIS - AUTOMATED METHOD 12/11/2024 7:38 PM [facility] Squamous Epithelial, Urine 3 0 - 60 /LPF LAB URINALYSIS - AUTOMATED METHOD 12/11/2024 7:38 PM [facility] Bacteria, Urine Negative Negative /HPF LAB URINALYSIS - AUTOMATED METHOD 12/11/2024 7:38 PM [facility] Hyaline Casts, Urine 0.0 0 - 3 /LPF LAB URINALYSIS - AUTOMATED METHOD 12/11/2024 7:38 PM [facility] Urine Urine specimen obtained by clean catch procedure / Unknown 12/11/2024 12/11/2024 7:25 PM EST us Gissel Vasquez MD LAB URINE ORDERABLES Mohini caraballo Result [facility] [address] [place] [address], * Chlamydia trachomatis and Neisseria gonorrhoeae molecular [...] Final Result [facility] [address] [place] [address], [place] [phone] * Chlamydia trachomatis and Neisseria gonorrhoeae molecular [...] Final Result [facility] [address] [place] [address], [place] [phone] * Chlamydia trachomatis and Neisseria gonorrhoeae molecular [...] Final Result [facility] [address] [place] [address], * (ABNORMAL) Culture wound deep (12/11/2024 12:00 [...] MICROBIOLOGY - GENERA L ORDERABLES Final Result [facility] ([facility]) [facility] [address] [place] [address], documented in this encounter Visit Diagnoses Diagnosis Contact with and (suspected) exposure to infections with a predominantly sexual mode of transmission Human immunodeficiency virus (HIV) disease ([facility]) Human immunodeficiency virus [HIV] disease documented in this encounter Care Teams Campus Rep Relationship Specialty Start Date End Date Dominik Moses MD [address] [facility] [address] [place], [place] PCP - General Pediatrics 08/27/21 documented as of this encounter
--- OUTSIDE RECORDS SUMMARY | 2025-02-18 14:12 | XMS_ITS | Encounter Summary ---
Author Organization [facility] Address [address] [place] [address] Care Team Providers Care Baking Powder Mixer Name Role Phone Dominik Moses MD Primary Care Provider Encounter Details Date Type Department Care Team (Late st Contact Info) Description 10/18/2024 Lab Requisition [facility] - Main Lab [address] [place] [address] Gissel Vasquez MD [address] [place] [address] Erythema intertrigo Social History Tobacco Use Types [...] noted. 10/21/2024 10:53 AM EST [facility] ([facility]) [facility] Swab Urethral structure / Unknown 10/18/2024 10/18/2024 8:11 PM EST us Gissel Vasquez MD LAB MICROBIOLOGY - GENERA L ORDERABLES Final Result [facility] ([facility] [address] [place] [address], documented in this encounter Visit Diagnoses Diagnosis Erythema intertrigo Other specified erythematous condition documented in this encounter Care Teams Baking Powder Mixer Relationship Specialty Start Date End Date Dominik Moses MD [address] [facility] [address] [place], [place] PCP - General Pediatrics 08/27/21 documented as of this encounter
--- OUTSIDE RECORDS SUMMARY | 2025-02-18 14:12 | XMS_ITS | Clinical Summary ---
Author Organization [facility] Address [address] [place] [address] Phone Care Team Providers Care Senior Internet Sales Consultant Name Role Phone Blanco Webster MD Primary Care Provider [phone] Social History Tobacco Use Types Packs/Day Years [...] age to complete this topic Care Teams Senior Internet Sales Consultant Relationship Specialty Start Date End Date Blanco Webster MD [facility] [facility] [place] [address] PCP - General 03/21/18
--- OUTSIDE RECORDS SUMMARY | 2025-02-18 14:12 | XMS_ITS | Encounter Summary ---
Author Organization [facility] Address [address] [place] [address] Care Team Providers Care Fruit Harvester Name Role Phone Dominik Moses MD Primary Care Provider Encounter Details Date Type Department Care Team (Late st Contact Info) Description 10/18/2024 Lab Requisition [facility] - Main Lab [address] [place] [address] Gissel Vasquez MD [address] [place] [address] Unspecified conjunctivitis Social History Tobacco Use Types [...] 10:51 AM EST [facility] Gram Stain Result No polymorphonuclear leukocytes, No epithelial cells, and No organisms noted 10/21/2024 10:51 AM EST [facility] Swab 10/18/2024 10/18/2024 8:0 7 PM EST us Gissel Vasquez MD LAB MICROBIOLOGY - GENERA L ORDERABLES Final Result [facility] [address] [place] [address], documented in this encounter Visit Diagnoses Diagnosis Unspecified conjunctivitis documented in this encounter Care Teams Fruit Harvester Relationship Specialty Start Date End Date Dominik Moses MD [address] [facility] [address] [place], [place] PCP - General Pediatrics 08/27/21 documented as of this encounter
--- OUTSIDE RECORDS SUMMARY | 2025-02-18 14:12 | XMS_ITS | Clinical Summary ---
Author Organization [facility] Address [address] [place] [address] Phone Care Team Providers Care Perinatal Technician Name Role Phone Dominik Moses MD Primary Care Provider Encounters Date Type Department Care Team Description 12/11/2024 Lab Requisition [facility] - Main Lab [address] [place] [address] Gissel Vasquez MD Contact with and (suspected) exposure to infections with a predominantly sexual mode of transmission; Human immunodeficiency virus (HIV) disease ([facility]/HCC) from Last 3 Months Medical History Medical History Date Comments Myopia DX:Myopia HIV infection ([facility]/HCC) DX:HIV i nfection ([facility]) Family History Medical History Relation Name Comments [...] Risk male 3-dose series) 2013 Meningococcal B Vaccine (1 o f 2 - Standard) 2018 MMR Vaccines (1 [...] Influencers of Health Screening 10/11/2022 Influenza Vaccine (Season Ended) 2025 HIB Vaccines Aged Out No longer eligi [...] of transmission Human immunodeficiency virus (HIV) disease ([facility]/HCC) URINALYSIS WITH REFLEX MICROSCOPIC Routine 12/11/2024 12:00 AM EST Contact with and (suspected) exposure to infections with a predominantly sexual mode of transmission Human immunodeficiency virus (HIV) disease (CMS/HCC) CHLAMYDIA TRACHOMATIS AND NEISSERIA GONORRHOEAE PCR Routine 12/11/2024 12:00 AM EST Contact with and (suspected) exposure to infections with a predominantly sexual mode of transmission Human immunodeficiency virus (HIV) disease ([facility]/HCC) CHLAMYDIA TRACHOMATIS AND NEISSERIA GONORRHOEAE PCR Routine 12/11/2024 12:00 AM EST Contact with and (suspected) exposure to infections with a predominantly sexual mode of transmission Human immunodeficiency virus (HIV) disease ([facility]/HCC) CHLAMYDIA TRACHOMATIS AND NEISSERIA GONORRHOEAE PCR Routine 12/11/2024 12:00 AM EST Contact with and (suspected) exposure to infections with a predominantly sexual mode of transmission Human immunodeficiency virus (HIV) disease ([facility]/HCC) CULTURE WOUND DEEP Routine 12/11/2024 12 :00 AM EST Contact with and (suspected) exposure to infections with a predominantly sexual mode of transmission Human immunodeficiency virus (HIV) disease ([facility]/HCC) from Last 3 Months Results * (ABNORMAL) Urinalysis with reflex microscopic (12/11/2024 12:00 AM EST) Pathologist [facility] Specific [place] Urine 1.026 1.003 - 1.030 LAB URINALYSIS - AUTOMATED METHOD 12/11/2024 7:38 PM [facility] pH, Urine 5.5 5.0 - 8.0 pH LAB URINALYSIS - AUTOMATED METHOD 12/11/2024 7:38 PM [facility] Leukocytes, Urine Trace(A) Negative LAB URINALYSIS - AUTOMATED METHOD 12/11/2024 7:38 PM [facility] Nitrite, Urine Negative Negative LAB URINALYSIS - AUTOMATED METHOD 12/11/2024 7:38 PM [facility] Protein, Urine Trace <=Trace mg/dL LAB URINALYSIS - AUTOMATED METHOD 12/11/2024 7:38 PM [facility] Glucose, Urine Negative Negative mg/dL LAB URINALYSIS - AUTOMATED METHOD 12/11/2024 7:38 PM [facility] Ketones, Urine 15(A) Negative mg/dL LAB URINALYSIS - AUTOMATED METHOD 12/11/2024 7:38 PM [facility] Urobilinogen, Urine 1.0 0.2 - 1.0 mg/dL LAB URINALYSIS - AUTOMATED METHOD 12/11/2024 7:38 PM [facility] Bilirubin, Urine Negative Negative LAB URINALYSIS - AUTOMATED METHOD 12/11/2024 7:38 PM [facility] Blood, Urine Negative Negative LAB URINALYSIS - AUTOMATED METHOD 12/11/2024 7:38 PM [facility] RBC, Urine 4.7(H) 0 - 4 /HPF LAB URINALYSIS - AUTOMATED METHOD 12/11/2024 7:38 PM [facility] WBC, Urine 0.0 0 - 4 /HPF LAB URINALYSIS - AUTOMATED METHOD 12/11/2024 7:38 PM [facility] Squamous Epithelial, Urine 3 0 - 60 /LPF LAB URINALYSIS - AUTOMATED METHOD 12/11/2024 7:38 PM [facility] Bacteria, Urine Negative Negative /HPF LAB URINALYSIS - AUTOMATED METHOD 12/11/2024 7:38 PM [facility] Hyaline Casts, Urine 0.0 0 - 3 /LPF LAB URINALYSIS - AUTOMATED METHOD 12/11/2024 7:38 PM [facility] Urine Urine specimen obtained by clean catch procedure / Unknown 12/11/2024 12/11/2024 7:25 PM EST us Gissel Vasquez MD LAB URINE ORDERABLES Mohini caraballo Result [facility] [address] [place] [address], * Chlamydia trachomatis and Neisseria gonorrhoeae molecular study (12/11/2024 12:00 AM EST) Only the most recent of3 resultswithin the time period is included. Neisseria gonorrhoeae PCR Negative Negative LAB MOLECULAR DIAGNOSTICS METHOD 12/12/2024 9:14 AM EST [facility] Chlamydia trachomatis PCR Negative Negative LAB MOLECULAR DIAGNOSTICS METHOD 12/12/2024 9:14 AM [facility] Swab Rectum structure / Unknown 12/11/2024 12/11/2024 7:25 PM EST us Gissel Vasquez MD LAB MICROBIOLOGY - GENERA L ORDERABLES Final Result [facility] [address] [place] [address], * (ABNORMAL) Culture wound deep (12/11/2024 12:00 AM EST) Culture, Wound Few Staphylococcus epidermidis(A) MARYAN 12/15/2024 12:33 PM [facility] Comment: The organism value for this result has been updated. These results have been appended to the previously preliminary verified report. Edited result: Previously reported as Gram Positive Cocci on 12/15/2024 at 1224 EST. Culture, Wound Few Staphylococcus epidermidis(A) MARYAN 12/15/2024 12:33 PM EST [facility] Comment: The organism value for this result has been updated. These results have been appended to the previously preliminary verified report. Edited result: Previously reported as Gram Positive Cocci on 12/15/2024 at 1224 EST. Gram Stain Result No polymorphonuclear leukocytes, No epithelial cells, and No organisms noted 12/15/2024 12:33 PM [facility] Swab Structure of left foot [...] MICROBIOLOGY - GENERA L ORDERABLES Final Result [facility] [address] [place] [address], from Last 3 Months Insurance [facility] MEDICAID - [place] Care Teams Perinatal Technician Relationship Specialty Start Date End Date Dominik Moses MD [address] [facility] [address] [place], [place] PCP - General Pediatrics 08/27/21
== END 2025-02-18 13:05 | disposition home or self-care (01) ==
LOC: HO.HOP 11:35
PROVIDERS: Visit Provider Counselor Mental Health
DX: F41.1 Generalized anxiety disorder (principal); F33.1 Major depressive disorder, recurrent, moderate; F43.9 Reaction to severe stress, unspecified
CPT/HCPCS: 90837

== ENCOUNTER 2025-03-11 09:20 | Outpatient (AMB) | payer BC, MEDICAID, SELFPAY ==
--- NOTE | 2025-03-11 09:15 | MHC.WMTHER ---
Intake Intake Visit Reasons: VIDEO OP Therapy Allergies ciclopirox Allergy (Intermediate, Verified 10/27/24 10:56) Rash gluten Adverse Reaction (Mild, Verified 10/27/24 16:52) Itching lactose Adverse Reaction (Mild, Verified 10/27/24 16:52) Itching PFSH Medical History Chronic pelvic pain in male Cyst of epididymis Testicular pain, left Scrotal pain Trauma and stressor-related disorder Major depressive disorder, recurrent episode Generalized anxiety disorder HIV (human immunodeficiency virus infection) Social History Comment: Alcohol occasional Substance Use Type: Marijuana Sexual orientation: Lesbian/Saenz/Homosexual Gender identity: Male Behavioral Health Assessment Weight Management Therapy Therapy Notes Details Subjective Patient reports continued engagement in ketamine treatment and states it is helping him manage life challenges more effectively. He shared difficulties in his relationship with his mother, noting that current home dynamics are contributing to emotional stress. Despite this, he has been taking proactive steps to prepare for independent living by submitting required documentation to the housing authority. Patient expressed that he is making a conscious effort to focus on aspects of life within his control, which has increased his sense of resilience when facing adversity. He continues to meet with his pain psychologist biweekly and finds this supportive. Objective PT presented for a follow-up session via Telehealth. Mental status: Alert, oriented, cooperative. Appears mildly depressed. Discussed current functioning, challenges, and recent progress toward independent living goals. Interventions provided this session: Supported patient in identifying how his efforts toward independence (e.g., housing paperwork) reflect progress and internal resilience. Utilized cognitive reframing techniques to help the patient distinguish between what is and isn?t within his control regarding family conflict. Encouraged the use of communication strategies to set boundaries and reduce emotional reactivity at home. Assessment/Response Mood/Functioning: Patient reports mild to moderate functional impairments, largely pain-related. Emotional Insight: Demonstrates insight into stressors and a growing ability to implement coping strategies. Risk Assessment: Within normal limits. No safety concerns reported or observed. Assessment & Plan Assessment & Plan (1) Generalized anxiety disorder: Code(s): F41.1 - Generalized anxiety disorder (2) Major depressive disorder, recurrent episode: Code(s): F33.9 - Major depressive disorder, recurrent, unspecified Qualifiers: Major depression episode severity: moderate Qualified Code(s): F33.1 - Major depressive disorder, recurrent, moderate (3) Trauma and stressor-related disorder: Code(s): F43.9 - Reaction to severe stress, unspecified Plan -Continue exploring coping strategies to manage family-related stress. -Reinforce progress toward housing stability and independent functioning. - F/up in 2 weeks. Next Appointment: Scheduled for 03/24/25 at 10:00 AM via Telehealth. Telehealth Telehealth Telehealth Platform: [employer] Location of provider rendering services: other ([facility], [place], [place]) Location of patient: address on file Patient Identification confirmed using: Name, : Yes Telehealth method: video Patient verbally consented to treatment: Yes Patient verbally consented to billing insurance company: Yes Patient informed of any privacy concerns related to visit: Yes Minutes spent on Phone/Video with Pt.: 45 Coding Level of Care Code Established Pt Tele Psytx 45 mins ([id number]) Patient Type Established Diagnoses Generalized anxiety disorder F41.1 Moderate episode of recurrent major depressive disorder F33.1 Major depression episode severity: moderate Trauma and stressor-related disorder F43.9 Time Spent (min) 45
--- OUTSIDE RECORDS SUMMARY | 2025-03-11 10:11 | XMS_ITS | Clinical Summary ---
Author Organization [address] [facility] Address [address] [place] [address] Phone Care Team Providers Care Respite Coordinator Name Role Phone Dominik Moses MD Primary Care Provider Encounters Date Type Department Care Team Description 12/11/2024 Lab Requisition [facility] - Main Lab [address] [place] [address] Gissel Vasquez MD Contact with and (suspected) exposure to infections with a predominantly sexual mode of transmission; Human immunodeficiency virus (HIV) disease ([facility]/HCC V24, [facility] V28) from Last 3 Months Medical History Medical History Date Comments Myopia DX:Myopia HIV infection (CMS/HCC V24, [facility] V28) DX:HIV infection ([facility]) Family History Medical History Relation Name [...] of transmission Human immunodeficiency virus (HIV) disease ([facility]/HCC) URINALYSIS WITH REFLEX MICROSCOPIC Routine 12/11/2024 12:00 AM EST Contact with and (suspected) exposure to infections with a predominantly sexual mode of transmission Human immunodeficiency virus (HIV) disease ([facility]/HCC) CHLAMYDIA TRACHOMATIS AND NEISSERIA GONORRHOEAE PCR Routine 12/11/2024 12:00 AM EST Contact with and (suspected) exposure to infections with a predominantly sexual mode of transmission Human immunodeficiency virus (HIV) disease ([facility]/HCC) CHLAMYDIA TRACHOMATIS AND NEISSERIA GONORRHOEAE PCR Routine 12/11/2024 12:00 AM EST Contact with and (suspected) exposure to infections with a predominantly sexual mode of transmission Human immunodeficiency virus (HIV) disease ([facility]/HCC) CHLAMYDIA TRACHOMATIS AND NEISSERIA GONORRHOEAE PCR Routine 12/11/2024 12:00 AM EST Contact with and (suspected) exposure to infections with a predominantly sexual mode of transmission Human immunodeficiency virus (HIV) disease ([facility]/HCC) CULTURE WOUND DEEP Routine 12/11/2024 12 :00 AM EST Contact with and (suspected) exposure to infections with a predominantly sexual mode of transmission Human immunodeficiency virus (HIV) disease ([facility]/HCC) from Last 3 Months Results * (ABNORMAL) Urinalysis with reflex microscopic (12/11/2024 12:00 AM EST) Specific [place] Urine 1.026 1.003 - 1.030 LAB URINALYSIS [...] MD LAB URINE ORDERABLES Mohini caraballo Result [facility] [address] [place] [address], * Chlamydia trachomatis and Neisseria gonorrhoeae molecular study (12/11/2024 12:00 AM EST) Only the most recent of3 resultswithin the time period is included. Neisseria gonorrhoeae PCR Negative Negative LAB MOLECULAR DIAGNOSTICS METHOD 12/12/2024 9:14 AM EST [facility] Chlamydia trachomatis PCR Negative Negative LAB MOLECULAR DIAGNOSTICS METHOD 12/12/2024 9:14 AM [facility] Swab Rectum structure / Unknown 12/11/2024 12/11/2024 7:25 PM EST us Gissel Vasquez MD LAB MICROBIOLOGY - GENERA L ORDERABLES Final Result [facility] [address] [place] [address], * (ABNORMAL) Culture wound deep (12/11/2024 12:00 AM EST) Culture, Wound Few Staphylococcus epidermidis(A) MARYAN 12/15/2024 12:33 PM [facility] Comment: The organism value for this result has been updated. These results have been appended to the previously preliminary verified report. Edited result: Previously reported as Gram Positive Cocci on 12/15/2024 at 1224 EST. Culture, Wound Few Staphylococcus epidermidis(A) MARYAN 12/15/2024 12:33 PM [facility] Comment: The organism value for this result has been updated. These results have been appended to the previously preliminary verified report. Edited result: Previously reported as Gram Positive Cocci on 12/15/2024 at 1224 EST. Gram Stain Result No polymorphonuclear leukocytes, No epithelial cells, and No organisms noted 12/15/2024 12:33 PM [facility] Swab Structure of left foot [...] MICROBIOLOGY - GENERA L ORDERABLES Final Result Performing Organization Address [facility]/State/ZIP Co de Phone Number [facility] ([facility] [address] [place] [address], from Last 3 Months Insurance [facility] MEDICAID - [place] Care Teams Respite Coordinator Relationship Specialty Start Date End Date Dominik Moses MD [address] [facility] [address] [place], [place] PCP - General Pediatrics 08/27/21
--- OUTSIDE RECORDS SUMMARY | 2025-03-11 10:11 | XMS_ITS | Encounter Summary ---
Author Organization [facility] Address [address] [place] [address] Care Team Providers Care Sheet Metal Production Worker Name Role Phone Dominik Moses MD Primary Care Provider Encounter Details Date Type Department Care Team (Late st Contact Info) Description 10/18/2024 Lab Requisition [facility] - Main Lab [address] [place] [address] Gissel Vasquez MD [address] [place] [id number] Unspecified conjunctivitis Social History Tobacco Use Types [...] No pathogens isolated. 10/21/2024 10:51 AM EST [facility] Gram Stain Result No polymorphonuclear leukocytes, No epithelial cells, and No organisms noted 10/21/2024 10:51 AM EST [facility] Swab 10/18/2024 10/18/2024 8:0 7 PM EST us Gissel Vasquez MD LAB MICROBIOLOGY - GENERA L ORDERABLES Final Result [facility] [address] [place] [address], documented in this encounter Visit Diagnoses Diagnosis Unspecified conjunctivitis documented in this encounter Care Teams Sheet Metal Production Worker Relationship Specialty Start Date End Date Dominik Moses MD [address] [facility] [address] [place], [place] PCP - General Pediatrics 08/27/21 documented as of this encounter
--- OUTSIDE RECORDS SUMMARY | 2025-03-11 10:11 | XMS_ITS | Clinical Summary ---
Author Organization [facility] Address [address] [place] [address] Phone Care Team Providers Care Ramp Service Man Name Role Phone Blanco Webster MD Primary Care Provider [phone] Social History Tobacco Use Types Packs/Day Years [...] age to complete this topic Care Teams Ramp Service Man Relationship Specialty Start Date End Date Blanco Webster MD [facility] [facility] [address] PCP - General 03/21/18
--- OUTSIDE RECORDS SUMMARY | 2025-03-11 10:11 | XMS_ITS | Encounter Summary ---
Author Organization [facility] Address [address] [place] [address] Care Team Providers Care Senior Network Security Engineer Name Role Phone Dominik Moses MD Primary Care Provider [phone] Encounter Details Date Type Department Care Team (Late st Contact Info) Description 10/18/2024 Lab Requisition [facility] - Main Lab [address] [place] [address] Gissel Vasquez MD [address] [place] [phone] Erythema intertrigo Social History Tobacco Use Types [...] pathogens noted. 10/21/2024 10:53 AM EST [facility] Swab Urethral structure / Unknown 10/18/2024 10/18/2024 8:11 PM EST us Gissel Vasquez MD LAB MICROBIOLOGY - GENERA L ORDERABLES Final Result [facility] [address] [place] [address], documented in this encounter Visit Diagnoses Diagnosis Erythema intertrigo Other specified erythematous condition documented in this encounter Care Teams Senior Network Security Engineer Relationship Specialty Start Date End Date Dominik Moses MD [address] [facility] [address] [place], [place] PCP - General Pediatrics 08/27/21 documented as of this encounter
--- OUTSIDE RECORDS SUMMARY | 2025-03-11 10:11 | XMS_ITS | Encounter Summary ---
Author Organization [facility] Address [address] [place] [address] Phone Care Team Providers Care Veterinary Medical Officer Name Role Phone Blanco Webster MD Primary Care Provider [phone] Encounter Details Date Type Department Care Team (Late st Contact Info) Description 04/18/2013 Documentation [facility] Family Medicine [address] [place], [place] [id number] Family Medicine, Physician [address] [place] [address] Social History Tobacco Use Types Packs/Day Years [...] on filedocumented in this encounter Care Teams Veterinary Medical Officer Relationship Specialty Start Date End Date Blanco Webster MD [address] [place] [address] [place] [address] PCP - General 03/21/18 documented as of this encounter
--- OUTSIDE RECORDS SUMMARY | 2025-03-11 10:11 | XMS_ITS | Encounter Summary ---
Author Organization [facility] Address [address] [place] [address] Care Team Providers Care Cell Maker Name Role Phone Dominik Moses MD Primary Care Provider Encounter Details Date Type Department Care Team (Latest Contact Info) Description 12/11/2024 Lab Requisition [facility] - Main Lab [address] [place] [address] Gissel Vasquez MD [address] [place] [address] Contact with and (suspected) exposure to infections with a predominantly sexual mode of transmission; Human immunodeficiency virus (HIV) disease (CMS/HCC V24, CMS/HCC V28) Social History Tobacco Use Types Packs/Day Years [...] of transmission Human immunodeficiency virus (HIV) disease (CMS/[facility]) URINALYSIS WITH REFLEX MICROSCOPIC Routine 12/11/2024 12:00 AM EST Contact with and (suspected) exposure to infections with a predominantly sexual mode of transmission Human immunodeficiency virus (HIV) disease ([facility]/HCC) CHLAMYDIA TRACHOMATIS AND NEISSERIA GONORRHOEAE PCR Routine 12/11/2024 12:00 AM EST Contact with and (suspected) exposure to infections with a predominantly sexual mode of transmission Human immunodeficiency virus (HIV) disease ([facility]/HCC) CHLAMYDIA TRACHOMATIS AND NEISSERIA GONORRHOEAE PCR Routine 12/11/2024 12:00 AM EST Contact with and (suspected) exposure to infections with a predominantly sexual mode of transmission Human immunodeficiency virus (HIV) disease ([facility]/HCC) CHLAMYDIA TRACHOMATIS AND NEISSERIA GONORRHOEAE PCR Routine 12/11/2024 12:00 AM EST Contact with and (suspected) exposure to infections with a predominantly sexual mode of transmission Human immunodeficiency virus (HIV) disease ([facility]/HCC) CULTURE WOUND DEEP Routine 12/11/2024 12 :00 AM EST Contact with and (suspected) exposure to infections with a predominantly sexual mode of transmission Human immunodeficiency virus (HIV) disease ([facility]) documented in this encounter Results * (ABNORMAL) Urinalysis with reflex microscopic (12/11/2024 12:00 AM EST) Specific [place] Urine 1.026 1.003 - 1.030 LAB URINALYSIS - AUTOMATED METHOD 12/11/2024 7:38 PM [facility] pH, Urine 5.5 5.0 - 8.0 pH LAB URINALYSIS - AUTOMATED METHOD 12/11/2024 7:38 PM [facility] Leukocytes, Urine Trace(A) Negative LAB URINALYSIS - AUTOMATED METHOD 12/11/2024 7:38 PM [facility] Nitrite, Urine Negative Negative LAB URINALYSIS - AUTOMATED METHOD 12/11/2024 7:38 PM [facility] Protein, Urine Trace <=Trace mg/dL LAB URINALYSIS - AUTOMATED METHOD 12/11/2024 7:38 PM [facility] Glucose, Urine Negative Negative mg/dL LAB URINALYSIS - AUTOMATED METHOD 12/11/2024 7:38 PM [facility] Ketones, Urine 15(A) Negative mg/dL LAB URINALYSIS - AUTOMATED METHOD 12/11/2024 7:38 PM [facility] Urobilinogen, Urine 1.0 0.2 - 1.0 mg/dL LAB URINALYSIS - AUTOMATED METHOD 12/11/2024 7:38 PM [facility] Bilirubin, Urine Negative Negative LAB URINALYSIS - AUTOMATED METHOD 12/11/2024 7:38 PM [facility] Blood, Urine Negative Negative LAB URINALYSIS - AUTOMATED METHOD 12/11/2024 7:38 PM [facility] RBC, Urine 4.7(H) 0 - 4 /HPF LAB URINALYSIS - AUTOMATED METHOD 12/11/2024 7:38 PM [facility] WBC, Urine 0.0 0 - 4 /HPF LAB URINALYSIS - AUTOMATED METHOD 12/11/2024 7:38 PM [facility] Squamous Epithelial, Urine 3 0 - 60 /LPF LAB URINALYSIS - AUTOMATED METHOD 12/11/2024 7:38 PM [facility] Bacteria, Urine Negative Negative /HPF LAB URINALYSIS - AUTOMATED METHOD 12/11/2024 7:38 PM [facility] Hyaline Casts, Urine 0.0 0 - 3 /LPF LAB URINALYSIS - AUTOMATED METHOD 12/11/2024 7:38 PM [facility] Urine Urine specimen obtained by clean catch procedure / Unknown 12/11/2024 12/11/2024 7:25 PM EST us Gissel Vasquez MD LAB URINE ORDERABLES Mohini caraballo Result [facility] [address] [place] [address], [place] [phone] * Chlamydia trachomatis and Neisseria gonorrhoeae molecular study (12/11/2024 12:00 AM EST) Neisseria gonorrhoeae PCR Negative Negative LAB MOLECULAR DIAGNOSTICS METHOD 12/12/2024 9:14 AM EST [facility] Chlamydia trachomatis PCR Negative Negative LAB MOLECULAR DIAGNOSTICS METHOD 12/12/2024 9:14 AM EST [facility] Swab Rectum structure / Unknown 12/11/2024 12/11/2024 7:25 PM EST us Gissel Vasquez MD LAB MICROBIOLOGY - GENERA L ORDERABLES Final Result [facility] [address] [place] [address], [place] [phone] * Chlamydia trachomatis and Neisseria gonorrhoeae molecular study (12/11/2024 12:00 AM EST) Pathologist [facility] Neisseria gonorrhoeae PCR Negative Negative LAB MOLECULAR DIAGNOSTICS METHOD 12/12/2024 9:14 AM EST [facility] Chlamydia trachomatis PCR Negative Negative LAB MOLECULAR DIAGNOSTICS METHOD 12/12/2024 9:14 AM [facility] Swab Structure of anterior portion of neck / Unknown 12/11/2024 12/11/2024 7:25 PM EST us Gissel Vasquez MD LAB MICROBIOLOGY - GENERA L ORDERABLES Final Result [facility] [address] [place] [address], [place] [phone] * Chlamydia trachomatis and Neisseria gonorrhoeae molecular study (12/11/2024 12:00 AM EST) Neisseria gonorrhoeae PCR Negative Negative LAB MOLECULAR DIAGNOSTICS METHOD 12/12/2024 9:29 AM EST [facility] Chlamydia trachomatis PCR Negative Negative LAB MOLECULAR DIAGNOSTICS METHOD 12/12/2024 9:29 AM EST [facility] Urine Urine specimen from urethra / Unknown 12/11/2024 12/11/2024 7:25 PM EST us Gissel Vasquez MD LAB MICROBIOLOGY - GENERA L ORDERABLES Final Result [facility] [address] [place] [address], * (ABNORMAL) Culture wound deep (12/11/2024 12:00 AM EST) Culture, Wound Few Staphylococcus epidermidis(A) MARYAN 12/15/2024 12:33 PM EST [facility] Comment: The organism value for this result has been updated. These results have been appended to the previously preliminary verified report. Edited result: Previously reported as Gram Positive Cocci on 12/15/2024 at 1224 EST. Culture, Wound Few Staphylococcus epidermidis(A) MARYAN 12/15/2024 12:33 PM EST [facility] Comment: The organism value for this result has been updated. These results have been appended to the previously preliminary verified report. Edited result: Previously reported as Gram Positive Cocci on 12/15/2024 at 1224 EST. Gram Stain Result No polymorphonuclear leukocytes, No epithelial cells, and No organisms noted 12/15/2024 12:33 PM EST [facility] Swab Structure of left foot [...] MICROBIOLOGY - GENERA L ORDERABLES Final Result [facility] ([facility]) [facility] [address] [place] [address], documented in this encounter Visit Diagnoses Diagnosis Contact with and (suspected) exposure to infections with a predominantly sexual mode of transmission Human immunodeficiency virus (HIV) disease ([facility] V24, [facility] V28) Human immunodeficiency virus [HIV] disease documented in this encounter Care Teams Cell Maker Relationship Specialty Start Date End Date Dominik Moses MD [address] [facility] [address] [place], [place] PCP - General Pediatrics 08/27/21 documented as of this encounter
--- OUTSIDE RECORDS SUMMARY | 2025-03-11 10:11 | XMS_ITS | Data Portability ---
Author Organization [place] - [facility], Allergy Address [address] [address] Care Team Providers Care Scientific Research Associate Name Role Phone ISABEL TRAN Primary Care Provider [phone] ISABEL TRAN Referring Provider [phone] JANES TRAN Primary Care Provider Assessment No [...] Address Organization Details Recorded Time Bilateral tinnitus 78766254043 02 Active 2022 Tinnitus, bilateral ; Note: Date Diagnosed : 04/25/2023 2:02 PM (H93.13) Not Available [facility] 4 03:17:50 Jaw pain 004410562 Active 2022 Jaw pain; Note: Date Diagnosed : 04/25/2023 2:07 PM (R68.84) Not Available [facility] 4 03:17:49 Chronic tonsillit is 69179969 Active 2023 MARCOS SABA MD [address] [place] [address], [facility] [place], [address] , [facility] - [facility] 4 11:34:25 Bleeding from nose 395522886 Active 2023 Epistaxis ; Note: Date Diagnosed : 12/21/2023 1:51 PM (R04.0) Not Available [facility] 4 03:17:49 Chronic disease of tonsils AND/OR adenoids 83671783 Active 2023 Calculus, tonsil; Note: Date Diagnosed : 12/21/2023 1:50 PM (J35.8) Not Available [facility] 03:17:50 Hemoptysi s 96660897 Active 2023 Hemoptysi s; Note: Date Diagnosed : 12/22/2023 3:29 PM (R04.2) Not Available [facility] 4 03:17:50 Hypertrop hy of tonsils 75485245 Active 2023 Hypertrop hy of tonsils; Note: Date Diagnosed : 12/11/2023 1:00 PM (J35.1) Not Available [facility] 4 03:17:50 Problem Notes None recorded. [...] capsule,d elayed release active Medicati on ID: [id number] B rand Name: duloxeti ne Send Method: [...] Updated DateTime 05/17/2024 177.8 cm 25.8 kg/m2 71897.63 g Kasey Farrell [place] - [facility] 05/17/2024 13:41:31 Social History None recorded. Functional Status None recorded. Mental Status None recorded. Family History Nothing Reported. Medical History Condition Response Migraines Y Immune System Disorder Y Past Encounters Encounter ID Performer Location Encounter Start Date Encounter Closed Date Diagnosis/Indication Diagnosis SNOMED-CT Code Diagnosis ICD10 Code Diagnosis Note [id number] MARCOS SABA MD [facility] [address] [address] 05/17/2024 13:34:24 05/20/2024 17:12:20 Chronic tonsillitis 95615766 J35.01 23-year-ol d male presents today for [...] ID Guarantor Name 05/17/2024 1 [place] [facility] (O) [id number] Casper Inman [id number] Casper Inman 05/17/2024 2 [place] [facility] Casper Inman [id number] Casper Inman Notes Date Note Type Note [...] bleeding in several weeks. MARCOS SABA MD [address] [place] [address], [phone], [facility] - [facility] 05/18/2024 11:39:09
== END 2025-03-11 10:10 | disposition home or self-care (01) ==
LOC: HO.HOP 09:20
PROVIDERS: Visit Provider Counselor Mental Health
DX: F41.1 Generalized anxiety disorder (principal); F33.1 Major depressive disorder, recurrent, moderate; F43.9 Reaction to severe stress, unspecified
CPT/HCPCS: 90834

== ENCOUNTER 2025-03-25 10:11 | Outpatient (AMB) | payer BC, MEDICAID, SELFPAY ==
--- NOTE | 2025-03-25 10:05 | A.OFFWM_ITS ---
Intake Intake Visit Reasons: VIDEO OP Therapy Allergies ciclopirox Allergy (Intermediate, Verified 10/27/24 10:56) Rash gluten Adverse Reaction (Mild, Verified 10/27/24 16:52) Itching lactose Adverse Reaction (Mild, Verified 10/27/24 16:52) Itching PFSH Medical History Chronic pelvic pain in male Cyst of epididymis Testicular pain, left Scrotal pain Trauma and stressor-related disorder Major depressive disorder, recurrent episode Generalized anxiety disorder HIV (human immunodeficiency virus infection) Social History Comment: Alcohol occasional Substance Use Type: Marijuana Sexual orientation: Lesbian/Saenz/Homosexual Gender identity: Male Behavioral Health Assessment Weight Management Therapy Therapy Notes Details Subjective: The patient reports experiencing fluctuations in pain levels, describing a pattern of good days following periods of very bad days. He appears visibly upset following a recent visit with a new neurologist, who, according to the patient, implied that his pain had significantly improved. This does not align with the patient's experience. He acknowledged some improvement from ketamine treatment but not the full resolution reported in the provider's note. The patient previously received ketamine infusions twice per week and is now receiving treatment once weekly, with plans to begin tapering the dose. He reports improvements in mood, including reduced depressive symptoms and low anxiety levels. However, he continues to struggle with pain, which significantly impacts his mobility and prevents him from being as physically active as he would like. Objective: Patient presented for a follow-up visit via Telehealth. Session focused on assessing current functioning, progress, and ongoing needs. The patient reflected on feelings of anger and patterns of negative self-talk. Cognitive interventions were used to identify and challenge maladaptive thoughts related to pain, including catastrophizing (?This pain will never end?) and hsn-er-xwphaom thinking. Patient was supported in developing more balanced, realistic cognitive responses. Behavioral strategies were used to encourage gradual re-engagement in meaningful activities within his physical limits to support mood improvement and build self-efficacy. The patient also processed recent medical appointments, with focus on differentiating what is within and outside of his control. Discussion included strategies for self-advocacy and maintaining focus on his healing journey. Assessment/Response: * Mental status: euthymic but frustrated at times. Alert, oriented x3, engaged and open. Better functioning but with marked physical impairments due to alleged medical issues. * Risk reported/identified: None. Assessment & Plan Assessment & Plan (1) Generalized anxiety disorder: Code(s): F41.1 - Generalized anxiety disorder (2) Major depressive disorder, recurrent episode: Code(s): F33.9 - Major depressive disorder, recurrent, unspecified Qualifiers: Major depression episode severity: moderate Qualified Code(s): F33.1 - Major depressive disorder, recurrent, moderate (3) Trauma and stressor-related disorder: Code(s): F43.9 - Reaction to severe stress, unspecified Plan F/up in 2 weeks. Next Appointment: Scheduled for 04/08/25 at 10:00 AM via Telehealth. Telehealth Telehealth Telehealth Platform: [employer] Location of provider rendering services: other ([facility] [place], [place], [place]) Location of patient: address on file Patient Identification confirmed using: Name, : Yes Telehealth method: video Patient verbally consented to treatment: Yes Patient verbally consented to billing insurance company: Yes Patient informed of any privacy concerns related to visit: Yes Minutes spent on Phone/Video with Pt.: 55 Coding Level of Care Code Established Pt Tele Psytx >53 mins ([id number]) Patient Type Established Diagnoses Generalized anxiety disorder F41.1 Moderate episode of recurrent major depressive disorder F33.1 Major depression episode severity: moderate Trauma and stressor-related disorder F43.9 Time Spent (min) 55
--- OUTSIDE RECORDS SUMMARY | 2025-03-25 11:12 | XMS_ITS | Encounter Summary ---
Author Organization [facility] Address [address] [place] [address] Care Team Providers Care Fabric Designer Name Role Phone Dominik Moses MD Primary Care Provider Encounter Details Date Type Department Care Team (Late st Contact Info) Description 10/18/2024 Lab Requisition [facility] - Main Lab [address] [place] [address] Gissel Vasquez MD [address] [place] [address] Unspecified conjunctivitis Social History Tobacco Use Types [...] No pathogens isolated. 10/21/2024 10:[address] [facility] Gram Stain Result No polymorphonuclear leukocytes, No epithelial cells, and No organisms noted 10/21/2024 10:51 AM EST [facility] Swab 10/18/2024 10/18/2024 8:0 7 PM EST us Gissel Vasquez MD LAB MICROBIOLOGY - GENERA L ORDERABLES Final Result [facility] [address] [place] [address], documented in this encounter Visit Diagnoses Diagnosis Unspecified conjunctivitis documented in this encounter Care Teams Fabric Designer Relationship Specialty Start Date End Date Dominik Moses MD [address] [facility] [address] [place], [place] PCP - General Pediatrics 08/27/21 documented as of this encounter
--- OUTSIDE RECORDS SUMMARY | 2025-03-25 11:12 | XMS_ITS | Data Portability ---
Author Organization [place] - [facility], Allergy Address [address] [address] Care Team Providers Care Rn Telemetry Name Role Phone ISABEL TRAN Primary Care Provider ISABEL TRAN Referring Provider [phone] JANES TRAN Primary Care Provider Assessment No [...] Address Organization Details Recorded Time Bilateral tinnitus 87446319774 02 Active 2022 Tinnitus, bilateral ; Note: Date Diagnosed : 04/25/2023 2:02 PM (H93.13) Not Available [facility] 4 03:17:50 Jaw pain 059759294 Active 2022 Jaw pain; Note: Date Diagnosed : 04/25/2023 2:07 PM (R68.84) Not Available [facility] 4 03:17:49 Chronic tonsillit is 99051799 Active 2023 MARCOS SABA MD [address] [place] [address], [facility] [place], [address] , [facility] - [facility] 4 11:34:25 Bleeding from nose 378606507 Active 2023 Epistaxis ; Note: Date Diagnosed : 12/21/2023 1:51 PM (R04.0) Not Available [facility] 4 03:17:49 Chronic disease of tonsils AND/OR adenoids 50801852 Active 2023 Calculus, tonsil; Note: Date Diagnosed : 12/21/2023 1:50 PM (J35.8) Not Available [facility] 03:17:50 Hemoptysi s 17079120 Active 2023 Hemoptysi s; Note: Date Diagnosed : 12/22/2023 3:29 PM (R04.2) Not Available [facility] 4 03:17:50 Hypertrop hy of tonsils 04397978 Active 2023 Hypertrop hy of tonsils; Note: Date Diagnosed : 12/11/2023 1:00 PM (J35.1) Not Available [facility] 4 03:17:50 Problem Notes None recorded. [...] capsule,d elayed release active Medicati on ID: [id number] B rand Name: duloxeti ne Send Method: [...] Updated DateTime 05/17/2024 177.8 cm 25.8 kg/m2 13893.63 g Kasey Farrell [place] - [facility] 05/17/2024 13:41:31 Social History None recorded. Functional Status None recorded. Mental Status None recorded. Family History Nothing Reported. Medical History Condition Response Migraines Y Immune System Disorder Y Past Encounters Encounter ID Performer Location Encounter Start Date Encounter Closed Date Diagnosis/Indication Diagnosis SNOMED-CT Code Diagnosis ICD10 Code Diagnosis Note [id number] MARCOS SABA MD [facility] [address] [address] 05/17/2024 13:34:24 05/20/2024 17:12:20 Chronic tonsillitis [id number] J35.01 23-year-ol d male presents today for [...] Recorded Advance Directives Directive None Recorded Payers Insurance Date Sequence Insurance Name Policy Number Policy Shelton Covered Member ID Shelton Member ID Guarantor Name 05/24/2024 1 [place] [facility] (O) [id number] Casper Inman [id number] Casper Inman 05/14/2024 2 [place] [facility] Casper Inman [id number] Casper Inman Notes Date Note Type Note [...] bleeding in several weeks. MARCOS SABA MD [address] [place] [address], [address], [facility] - [facility] 05/18/2024 11:39:09
--- OUTSIDE RECORDS SUMMARY | 2025-03-25 11:12 | XMS_ITS | Encounter Summary ---
Author Organization [facility] Address [address] [place] [address] Care Team Providers Care Car Rider Name Role Phone Dominik Moses MD Primary Care Provider Encounter Details Date Type Department Care Team (Late st Contact Info) Description 10/18/2024 Lab Requisition [facility] - Main Lab [address] [place] [address] Gissel Vasquez MD [address] [place] [address] Erythema intertrigo Social History Tobacco Use Types [...] significant pathogens noted. 10/21/2024 10:53 AM EST [facility] Swab Urethral structure / Unknown 10/18/2024 10/18/2024 8:11 PM EST us Gissel Vasquez MD LAB MICROBIOLOGY - GENERA L ORDERABLES Final Result [facility] [address] [place] [address], documented in this encounter Visit Diagnoses Diagnosis Erythema intertrigo Other specified erythematous condition documented in this encounter Care Teams Car Rider Relationship Specialty Start Date End Date Dominik Moses MD [address] [facility] [address] [place], [place] PCP - General Pediatrics 08/27/21 documented as of this encounter
--- OUTSIDE RECORDS SUMMARY | 2025-03-25 11:12 | XMS_ITS | Encounter Summary ---
Author Organization [facility] Address [address] [place] [address] Phone Care Team Providers Care Project Engineering Director Name Role Phone Blanco Webster MD Primary Care Provider [phone] Encounter Details Date Type Department Care Team (Late st Contact Info) Description 04/18/2013 Documentation [facility] [address] [place], [place] [phone] Family Medicine, Physician [address] [place] [address] Social History Tobacco Use Types Packs/Day Years [...] on filedocumented in this encounter Care Teams Project Engineering Director Relationship Specialty Start Date End Date Blanco Webster MD [address] [place] [address] [place] [address] PCP - General 03/21/18 documented as of this encounter
--- OUTSIDE RECORDS SUMMARY | 2025-03-25 11:12 | XMS_ITS | Encounter Summary ---
Author Organization [facility] Address [address] [place] [address] Care Team Providers Care Seam Feller Name Role Phone Dominik Moses MD Primary Care Provider Encounter Details Date Type Department Care Team (Latest Contact Info) Description 12/11/2024 Lab Requisition [facility] - Main Lab [address] [place] [address] Gissel Vasquez MD [address] [place] [id number] Contact with and (suspected) exposure to infections [...] of transmission Human immunodeficiency virus (HIV) disease ([facility]) URINALYSIS WITH REFLEX MICROSCOPIC Routine 12/11/2024 12:00 AM EST Contact with and (suspected) exposure to infections with a predominantly sexual mode of transmission Human immunodeficiency virus (HIV) disease ([facility]/HCC) CHLAMYDIA TRACHOMATIS AND NEISSERIA GONORRHOEAE PCR Routine 12/11/2024 12:00 AM EST Contact with and (suspected) exposure to infections with a predominantly sexual mode of transmission Human immunodeficiency virus (HIV) disease ([facility]/HCC) CHLAMYDIA TRACHOMATIS AND NEISSERIA GONORRHOEAE PCR Routine 12/11/2024 12:00 AM EST Contact with and (suspected) exposure to infections with a predominantly sexual mode of transmission Human immunodeficiency virus (HIV) disease ([facility]/HCC) CHLAMYDIA TRACHOMATIS AND NEISSERIA GONORRHOEAE PCR Routine 12/11/2024 12:00 AM EST Contact with and (suspected) exposure to infections with a predominantly sexual mode of transmission Human immunodeficiency virus (HIV) disease ([facility]/HCC) CULTURE WOUND DEEP Routine 12/11/2024 12 :00 AM EST Contact with and (suspected) exposure to infections with a predominantly sexual mode of transmission Human immunodeficiency virus (HIV) disease ([facility]) documented in this encounter Results * (ABNORMAL) Urinalysis with reflex microscopic (12/11/2024 12:00 AM EST) Specific Momence Urine 1.026 1.003 - 1.030 LAB URINALYSIS - AUTOMATED METHOD 12/11/2024 7:38 PM [facility] pH, Urine 5.5 5.0 - 8.0 pH LAB URINALYSIS - AUTOMATED METHOD 12/11/2024 7:38 PM [facility] Leukocytes, Urine Trace(A) Negative LAB URINALYSIS - AUTOMATED METHOD 12/11/2024 7:38 PM [facility] Nitrite, Urine Negative Negative LAB URINALYSIS - AUTOMATED METHOD 12/11/2024 7:38 PM [facility] Protein, Urine Trace <=Trace mg/dL LAB URINALYSIS - AUTOMATED METHOD 12/11/2024 7:38 PM [facility] Glucose, Urine Negative Negative mg/dL LAB URINALYSIS - AUTOMATED METHOD 12/11/2024 7:38 PM [facility] Ketones, Urine 15(A) Negative mg/dL LAB URINALYSIS - AUTOMATED METHOD 12/11/2024 7:38 PM [facility] Urobilinogen, Urine 1.0 0.2 - 1.0 mg/dL LAB URINALYSIS - AUTOMATED METHOD 12/11/2024 7:38 PM [facility] Bilirubin, Urine Negative Negative LAB URINALYSIS - AUTOMATED METHOD 12/11/2024 7:38 PM [facility] Blood, Urine Negative Negative LAB URINALYSIS - AUTOMATED METHOD 12/11/2024 7:38 PM [facility] RBC, Urine 4.7(H) 0 - 4 /HPF LAB URINALYSIS - AUTOMATED METHOD 12/11/2024 7:38 PM [facility] WBC, Urine 0.0 0 - 4 /HPF LAB URINALYSIS - AUTOMATED METHOD 12/11/2024 7:38 PM [facility] Squamous Epithelial, Urine 3 0 - 60 /LPF LAB URINALYSIS - AUTOMATED METHOD 12/11/2024 7:38 PM [facility] Bacteria, Urine Negative Negative /HPF LAB URINALYSIS - AUTOMATED METHOD 12/11/2024 7:38 PM [facility] Hyaline Casts, Urine 0.0 0 - 3 /LPF LAB URINALYSIS - AUTOMATED METHOD 12/11/2024 7:38 PM [facility] Urine Urine specimen obtained by clean catch procedure / Unknown 12/11/2024 12/11/2024 7:25 PM EST us Gissel Vasquez MD LAB URINE ORDERABLES Mohini caraballo Result [facility] [address] [place] [address], [place] [phone] * Chlamydia trachomatis and Neisseria gonorrhoeae molecular study (12/11/2024 12:00 AM EST) Neisseria gonorrhoeae PCR Negative Negative LAB MOLECULAR DIAGNOSTICS METHOD 12/12/2024 9:14 AM EST [facility] Chlamydia trachomatis PCR Negative Negative LAB MOLECULAR DIAGNOSTICS METHOD 12/12/2024 9:14 AM EST [facility] Swab Rectum structure / Unknown 12/11/2024 12/11/2024 7:25 PM EST us Gissel Vasquez MD LAB MICROBIOLOGY - GENERA L ORDERABLES Final Result [facility] [address] [place] [address], [place] [phone] * Chlamydia trachomatis and Neisseria gonorrhoeae molecular study (12/11/2024 12:00 AM EST) Pathologist [facility] Neisseria gonorrhoeae PCR Negative Negative LAB MOLECULAR DIAGNOSTICS METHOD 12/12/2024 9:14 AM EST [facility] Chlamydia trachomatis PCR Negative Negative LAB MOLECULAR DIAGNOSTICS METHOD 12/12/2024 9:14 AM [facility] Swab Structure of anterior portion of neck / Unknown 12/11/2024 12/11/2024 7:25 PM EST us Gissel Vasquez MD LAB MICROBIOLOGY - GENERA L ORDERABLES Final Result [facility] [address] [place] [address], [place] [phone] * Chlamydia trachomatis and Neisseria gonorrhoeae molecular study (12/11/2024 12:00 AM EST) Neisseria gonorrhoeae PCR Negative Negative LAB MOLECULAR DIAGNOSTICS METHOD 12/12/2024 9:29 AM EST [facility] Chlamydia trachomatis PCR Negative Negative LAB MOLECULAR DIAGNOSTICS METHOD 12/12/2024 9:29 AM EST [facility] Urine Urine specimen from urethra / Unknown 12/11/2024 12/11/2024 7:25 PM EST us Gissel Vasquez MD LAB MICROBIOLOGY - GENERA L ORDERABLES Final Result [facility] [address] [place] [address], * (ABNORMAL) Culture wound deep (12/11/2024 12:00 AM EST) Culture, Wound Few Staphylococcus epidermidis(A) MARYAN 12/15/2024 12:33 PM EST [facility] Comment: The organism value for this result has been updated. These results have been appended to the previously preliminary verified report. Edited result: Previously reported as Gram Positive Cocci on 12/15/2024 at 1224 EST. Culture, Wound Few Staphylococcus epidermidis(A) MARYAN 12/15/2024 12:33 PM EST [facility] Comment: The organism value for this result has been updated. These results have been appended to the previously preliminary verified report. Edited result: Previously reported as Gram Positive Cocci on 12/15/2024 at 1224 EST. Gram Stain Result No polymorphonuclear leukocytes, No epithelial cells, and No organisms noted 12/15/2024 12:33 PM EST [facility] Swab Structure of left foot [...] MICROBIOLOGY - GENERA L ORDERABLES Final Result [facility] ([facility]) [facility] [address] [place] [address], documented in this encounter Visit Diagnoses Diagnosis Contact with and (suspected) exposure to infections with a predominantly sexual mode of transmission Human immunodeficiency virus (HIV) disease ([facility] V24, [facility] V28) Human immunodeficiency virus [HIV] disease documented in this encounter Care Teams Seam Feller Relationship Specialty Start Date End Date Dominik Moses MD [address] [facility] [address] [place], [place] PCP - General Pediatrics 08/27/21 documented as of this encounter
--- OUTSIDE RECORDS SUMMARY | 2025-03-25 11:12 | XMS_ITS | Clinical Summary ---
Author Organization [address] [facility] Address [address] [place] [address] Phone Care Team Providers Care Healthcare Administration Internship Name Role Phone Dominik Moses MD Primary Care Provider [phone] Medical History Medical History Date Comments Myopia DX:Myopia HIV infection (CMS/HCC V24, CMS/HCC V28) DX:HIV infection (HCC) Family History Medical History Relation Name Comments [...] on patient's age to complete this topic Insurance [facility] MEDICAID - [place] Care Teams Healthcare Administration Internship Relationship Specialty Start Date End Date Dominik Moses MD [address] [facility] [address] [place], [place] PCP - General Pediatrics 08/27/21
--- OUTSIDE RECORDS SUMMARY | 2025-03-25 11:12 | XMS_ITS | Clinical Summary ---
Author Organization [facility] Address [address] [place] [address] Phone Care Team Providers Care Manager Branch Name Role Phone Blanco Webster MD Primary Care Provider [phone] Social History Tobacco Use Types Packs/Day Years [...] age to complete this topic Care Teams Manager Branch Relationship Specialty Start Date End Date Blanco Webster MD [facility] [facility] [place] [address] PCP - General 03/21/18
== END 2025-03-25 11:06 | disposition home or self-care (01) ==
LOC: HO.HOP 10:11
PROVIDERS: Visit Provider Counselor Mental Health
DX: F41.1 Generalized anxiety disorder (principal); F33.1 Major depressive disorder, recurrent, moderate; F43.9 Reaction to severe stress, unspecified
CPT/HCPCS: 90837

== ENCOUNTER 2025-04-08 10:15 | Outpatient (AMB) | payer BC, MEDICAID, SELFPAY ==
--- NOTE | 2025-04-08 10:00 | A.OFFWM_ITS ---
Intake Intake Visit Reasons: VIDEO OP Therapy Allergies ciclopirox Allergy (Intermediate, Verified 10/27/24 10:56) Rash gluten Adverse Reaction (Mild, Verified 10/27/24 16:52) Itching lactose Adverse Reaction (Mild, Verified 10/27/24 16:52) Itching PFSH Medical History Chronic pelvic pain in male Cyst of epididymis Testicular pain, left Scrotal pain Trauma and stressor-related disorder Major depressive disorder, recurrent episode Generalized anxiety disorder HIV (human immunodeficiency virus infection) Social History Comment: Alcohol occasional Substance Use Type: Marijuana Sexual orientation: Lesbian/Saenz/Homosexual Gender identity: Male Behavioral Health Assessment Weight Management Therapy Therapy Notes Details Subjective: Patient reports experiencing a pain flare-up since last and shares feeling anxious and frustrated with his body in the context of chronic pain. He has been using mindfulness techniques and supportive self-talk to manage anxiety. Additionally, he has been utilizing a pain tracker to monitor symptoms and patterns over time. Objective: Patient presented for a follow-up session via Telehealth. The session focused on current functioning, emotional response to the pain flare-up, and identifying potential triggers contributing to increased physical symptoms. Therapeutic interventions included: * Psychoeducation on the pain-anxiety cycle to help the patient understand how emotional distress can amplify physical discomfort. * Mindfulness-based stress reduction (MBSR) techniques were reinforced to support his ongoing self-management of anxiety and body awareness during pain episodes. * Cognitive restructuring was used to challenge negative self-talk and reframe frustration with his body into more compassionate and realistic internal dialogue. * Explored recent behavioral and emotional triggers that may have contributed to the flare-up, including overexertion, stress, or disrupted sleep. * Supported the use of the pain tracker as a tool for identifying patterns, triggers, and coping responses to improve symptom management over time. * Introduced behavioral pacing strategies to help balance activity and rest, reducing the likelihood of future pain spikes. * Discussed the importance of self-validation and emotion regulation when experiencing physical setbacks to reduce cycles of emotional shutdown or self- blame. Assessment/Response: * Mental status: Mildly anxious and frustrated; affect congruent; insight present. * Risk reported/identified: None Patient was engaged, demonstrated good insight into his condition, and was receptive to therapeutic tools aimed at improving emotional and physical resilience. Assessment & Plan Assessment & Plan (1) Generalized anxiety disorder: Code(s): F41.1 - Generalized anxiety disorder (2) Major depressive disorder, recurrent episode: Code(s): F33.9 - Major depressive disorder, recurrent, unspecified Qualifiers: Major depression episode severity: moderate Qualified Code(s): F33.1 - Major depressive disorder, recurrent, moderate (3) Trauma and stressor-related disorder: Code(s): F43.9 - Reaction to severe stress, unspecified Plan Continue bi-weekly sessions. Next varsha: 04/23/2025 at 10am, Video Telehealth Telehealth Telehealth Platform: [employer] Location of provider rendering services: other (Home office. [place], [place]) Location of patient: address on file Patient Identification confirmed using: Name, : Yes Telehealth method: video Patient verbally consented to treatment: Yes Patient verbally consented to billing insurance company: Yes Patient informed of any privacy concerns related to visit: Yes Minutes spent on Phone/Video with Pt.: 60 Coding Level of Care Code Established Pt Tele Psytx >53 mins (18296) Patient Type Established Diagnoses Generalized anxiety disorder F41.1 Moderate episode of recurrent major depressive disorder F33.1 Major depression episode severity: moderate Trauma and stressor-related disorder F43.9 Time Spent (min) 60
--- OUTSIDE RECORDS SUMMARY | 2025-04-08 10:58 | XMS_ITS | Encounter Summary ---
Author Organization [facility] Address [address] [place] [address] Phone Care Team Providers Care Pickling Tank Operator Name Role Phone Blanco Webster MD Primary Care Provider [phone] Encounter Details Date Type Department Care Team (Late st Contact Info) Description 04/18/2013 Documentation [facility] [place] [place] Family Medicine [address] [place], [place] [id number] Family Medicine, Physician [address] [place] [address] Social History Tobacco Use Types Packs/Day Years [...] on filedocumented in this encounter Care Teams Pickling Tank Operator Relationship Specialty Start Date End Date Blanco Webster MD [address] [place] [address] [place] [address] PCP - General 03/21/18 documented as of this encounter
== END 2025-04-08 11:10 | disposition home or self-care (01) ==
LOC: HO.HOP 10:15
PROVIDERS: Visit Provider Counselor Mental Health
DX: F41.1 Generalized anxiety disorder (principal); F33.1 Major depressive disorder, recurrent, moderate; F43.9 Reaction to severe stress, unspecified
CPT/HCPCS: 90837

== ENCOUNTER 2025-04-23 10:18 | Outpatient (AMB) | payer BC, MEDICAID, SELFPAY ==
--- NOTE | 2025-04-23 10:10 | MHC.WMTHER ---
Intake Intake Visit Reasons: VIDEO OP Therapy Allergies ciclopirox Allergy (Intermediate, Verified 10/27/24 10:56) Rash gluten Adverse Reaction (Mild, Verified 10/27/24 16:52) Itching lactose Adverse Reaction (Mild, Verified 10/27/24 16:52) Itching PFSH Medical History Chronic pelvic pain in male Cyst of epididymis Testicular pain, left Scrotal pain Trauma and stressor-related disorder Major depressive disorder, recurrent episode Generalized anxiety disorder HIV (human immunodeficiency virus infection) Social History Comment: Alcohol occasional Substance Use Type: Marijuana Sexual orientation: Lesbian/Saenz/Homosexual Gender identity: Male Behavioral Health Assessment Weight Management Therapy Therapy Notes Details Subjective: Patient reports overall improvement over the past two days, though the last two weeks have been challenging. He describes a distressing physical and emotional reaction during his Ketamine treatment on 04/09, including shaking, panic-like symptoms, and feeling out of control of his thoughts, body, and emotions. He was medicated during the session and later informed this was a possible response, attributed to his brain being unable to hold the experience. He had a follow-up Ketamine session last week and is scheduled for additional treatments with an adjusted frequency. Patient also notes ongoing difficulty managing stress, stating he feels easily overwhelmed and struggles to regulate his emotions effectively in response to daily demands. Objective: Patient attended follow-up via Telehealth. The session focused on processing the recent distressing Ketamine experience and supporting emotional regulation. Therapeutic interventions included: -Narrative processing of the Ketamine session to reduce residual distress and promote integration of the experience. Patient was encouraged to name emotions and physical sensations associated with the event to support grounding and reprocessing. -Psychoeducation on trauma-informed care and autonomic nervous system responses (e.g., panic, dissociation) to normalize his experience and reduce fear of recurrence. -Solution-Focused Brief Therapy (SFBT) was used to explore what has helped him cope in the past, identify recent small improvements, and strengthen his sense of control. -Introduced and practiced grounding techniques and breathing strategies for emotional self-regulation during moments of overwhelm. -Supported the re-establishment of daily structure, reinforcing the importance of getting back to the basics (consistent sleep, nutrition, physical movement) as a foundation for emotional stability. -Discussed importance of self-compassion and pacing, especially as he continues with Ketamine treatment, allowing time and space for integration. Assessment/Response: Mental status: Mood slightly anxious; affect appropriate; thought process goal-directed; insight intact. Risk reported/identified: None Patient was open and engaged, demonstrated growing insight into his stress responses and the need for basic self-care and emotional regulation tools during this treatment phase. Assessment & Plan Assessment & Plan (1) Generalized anxiety disorder: Code(s): F41.1 - Generalized anxiety disorder (2) Major depressive disorder, recurrent episode: Code(s): F33.9 - Major depressive disorder, recurrent, unspecified Qualifiers: Major depression episode severity: moderate Qualified Code(s): F33.1 - Major depressive disorder, recurrent, moderate (3) Trauma and stressor-related disorder: Code(s): F43.9 - Reaction to severe stress, unspecified Plan Reinforce foundational wellness practices: sleep, nutrition, and movement. Patient will be placed on the cancellation list for next week. Next varsha: 05/12/25 Telehealth Telehealth Telehealth Platform: [employer] Location of provider rendering services: other (Home office. [employer], [place]) Location of patient: address on file Patient Identification confirmed using: Name, : Yes Telehealth method: video Patient verbally consented to treatment: Yes Patient verbally consented to billing insurance company: Yes Patient informed of any privacy concerns related to visit: Yes Minutes spent on Phone/Video with Pt.: 60 Coding Level of Care Code Established Pt Tele Psytx >53 mins (02510) Patient Type Established Diagnoses Generalized anxiety disorder F41.1 Moderate episode of recurrent major depressive disorder F33.1 Major depression episode severity: moderate Trauma and stressor-related disorder F43.9 Time Spent (min) 60
--- OUTSIDE RECORDS SUMMARY | 2025-04-23 11:36 | XMS_ITS | Encounter Summary ---
Author Organization [facility] Address [address] [place] [address] Phone Care Team Providers Care Morning News Producer Name Role Phone Blanco Webster MD Primary Care Provider [phone] Encounter Details Date Type Department Care Team (Late st Contact Info) Description 04/18/2013 Documentation [facility] [place] Family Medicine [address] [place], [place] [phone] Family Medicine, Physician [address] [place] [address] Social History Tobacco Use Types Packs/Day Years [...] on filedocumented in this encounter Care Teams Morning News Producer Relationship Specialty Start Date End Date Blanco Webster MD [address] [place] [address] [place] [address] PCP - General 03/21/18 documented as of this encounter
== END 2025-04-23 11:11 | disposition home or self-care (01) ==
LOC: HO.HOP 10:18
PROVIDERS: Visit Provider Counselor Mental Health
DX: F41.1 Generalized anxiety disorder (principal); F33.1 Major depressive disorder, recurrent, moderate; F43.9 Reaction to severe stress, unspecified
CPT/HCPCS: 90837

== ENCOUNTER 2025-05-27 15:14 | Outpatient (AMB) | payer BC, MEDICAID, SELFPAY ==
--- NOTE | 2025-05-27 15:15 | A.OFFWM_ITS ---
Intake Intake Visit Reasons: VIDEO OP Therapy Allergies ciclopirox Allergy (Intermediate, Verified 10/27/24 10:56) Rash gluten Adverse Reaction (Mild, Verified 10/27/24 16:52) Itching lactose Adverse Reaction (Mild, Verified 10/27/24 16:52) Itching PFSH Medical History Chronic pelvic pain in male Cyst of epididymis Testicular pain, left Scrotal pain Trauma and stressor-related disorder Major depressive disorder, recurrent episode Generalized anxiety disorder HIV (human immunodeficiency virus infection) Social History Comment: Alcohol occasional Substance Use Type: Marijuana Sexual orientation: Lesbian/Saenz/Homosexual Gender identity: Male Behavioral Health Assessment Weight Management Therapy Therapy Notes Details Subjective: Patient reports ?doing well today.? He is currently home alone for the week while his parents are away on vacation?his first time not joining them. He shared that he will begin seeing new providers through [facility] and is feeling a bit nervous about restarting ketamine treatment tomorrow after a one- month break. He has noticed increased pain recently and believes ketamine has been helpful in managing his pain levels. The patient also reported beginning content creation focused on sharing his personal experiences and strategies that have worked for him. He stated this has had a positive impact on his mood and mindset. Objective: The patient attended the follow-up session via Telehealth. He was alert, engaged, and cooperative throughout. Affect was congruent with stated mood. Therapeutic interventions included: * Supportive psychotherapy to validate the patient?s efforts in independently managing emotional and physical challenges. * Exploration of his anxiety around restarting ketamine treatment, including identifying specific fears and developing coping strategies. * Cognitive reframing to help reduce anticipatory anxiety and reinforce self- efficacy regarding medical treatment and provider transitions. * Encouraged use of content creation as a form of expressive coping and self- reflection; discussed boundaries and emotional safety in sharing publicly. * Discussed the importance of maintaining structure and self-care while home alone and explored strategies to support routine and emotional stability. Assessment/Response: * Mental status: Patient was oriented ?3. Thought processes were logical and goal-directed. Speech was clear and spontaneous. Mood was described as ?doing well,? and affect was appropriate. Insight and judgment appeared intact. * Risk reported/identified: None Assessment & Plan Assessment & Plan (1) Generalized anxiety disorder: Code(s): F41.1 - Generalized anxiety disorder (2) Major depressive disorder, recurrent episode: Code(s): F33.9 - Major depressive disorder, recurrent, unspecified Qualifiers: Major depression episode severity: moderate Qualified Code(s): F33.1 - Major depressive disorder, recurrent, moderate (3) Trauma and stressor-related disorder: Code(s): F43.9 - Reaction to severe stress, unspecified Plan Continue with supportive and CBT-based interventions to address pain management, anxiety, and emotional regulation. Monitor response to resuming ketamine treatment. Encourage continued use of creative expression as a tool for emotional processing. Follow-up scheduled in 2 weeks. * Next varsha: 06/11/25 at 2pm Telehealth Telehealth Telehealth Platform: Other (please specify) ([employer] - [employer] did not worked for PT.) Location of provider rendering services: other (Home office. [place], [place]) Location of patient: address on file Patient Identification confirmed using: Name, : Yes Telehealth method: video Patient verbally consented to treatment: Yes Patient verbally consented to billing insurance company: Yes Patient informed of any privacy concerns related to visit: Yes Minutes spent on Phone/Video with Pt.: 50 Coding Level of Care Code Established Pt Tele Psytx 45 mins (29156) Patient Type Established Diagnoses Generalized anxiety disorder F41.1 Moderate episode of recurrent major depressive disorder F33.1 Major depression episode severity: moderate Trauma and stressor-related disorder F43.9 Time Spent (min) 50
--- OUTSIDE RECORDS SUMMARY | 2025-05-27 16:25 | XMS_ITS | Data Portability ---
Author Organization [place] [facility], Allergy Address [address] [facility] [address] [place] [address] Care Team Providers Care Luggage Attendant Name Role Phone ISABEL TRAN Primary Care Provider ISABEL TRAN Referring Provider [phone] JANES TRAN Primary Care Provider Assessment No [...] Address Organization Details Recorded Time Bilateral tinnitus 92904973823 02 Active 2022 Tinnitus, bilateral ; Note: Date Diagnosed : 04/25/2023 2:02 PM (H93.13) Not Available [facility] 4 03:17:50 Jaw pain 879371494 Active 2022 Jaw pain; Note: Date Diagnosed : 04/25/2023 2:07 PM (R68.84) Not Available [facility] 4 03:17:49 Chronic tonsillit is 49743847 Active 2023 MARCOS SABA MD [address] [place] [address], [place] [place], [address] , [facility] - [facility] 4 11:34:25 Bleeding from nose 540801142 Active 2023 Epistaxis ; Note: Date Diagnosed : 12/21/2023 1:51 PM (R04.0) Not Available [facility] 4 03:17:49 Chronic disease of tonsils AND/OR adenoids 05342056 Active 2023 Calculus, tonsil; Note: Date Diagnosed : 12/21/2023 1:50 PM (J35.8) Not Available [facility] 4 03:17:50 Hemoptysi s 57714931 Active 2023 Hemoptysi s; Note: Date Diagnosed : 12/22/2023 3:29 PM (R04.2) Not Available [facility] 4 03:17:50 Hypertrop hy of tonsils 40988142 Active 2023 Hypertrop hy of tonsils; Note: Date Diagnosed : 12/11/2023 1:00 PM (J35.1) Not Available [facility] 4 03:17:50 Problem Notes None recorded. Medical Equipment None Reported. [...] capsule,d elayed release active Medicati on ID: [id number] B rand Name: duloxeti ne Send Method: [...] Updated DateTime 05/17/2024 177.8 cm 25.8 kg/m2 48026.63 g Kasey Farrell [place] [facility] 05/17/2024 13:41:31 Social History None recorded. Functional Status None recorded. Mental Status None recorded. Family History Nothing Reported. Medical History Condition Response Migraines Y Immune System Disorder Y Past Encounters Encounter ID Performer Location Encounter Start Date Encounter Closed Date Diagnosis/Indication Diagnosis SNOMED-CT Code Diagnosis ICD10 Code Diagnosis Note [id number] MARCOS SABA MD [facility] [address] [address] 05/17/2024 13:34:24 05/20/2024 17:12:20 Chronic tonsillitis 51960866 J35.01 23-year-ol d male presents today for [...] ID Guarantor Name 05/24/2024 1 [place] [facility] (O) [id number] Casper Inman [id number] Casper Inman 05/14/2024 2 [place] [facility] Casper Inman [id number] Casper Inman Notes Date Note Type Note [...] bleeding in several weeks. MARCOS SABA MD [address] [place] [address], [phone], [facility] - [facility] 05/18/2024 11:39:09
--- OUTSIDE RECORDS SUMMARY | 2025-05-27 16:25 | XMS_ITS | Encounter Summary ---
Author Organization [facility] Address [address] [place] [address] Care Team Providers Care Core Machine Tender Name Role Phone Dominik Moses MD Primary Care Provider Encounter Details Date Type Department Care Team (Late st Contact Info) Description 10/18/2024 Lab Requisition [facility] - Main Lab [address] [place] [address] Gissel Vasquez MD [address] [place] [address] Unspecified conjunctivitis Social History Tobacco Use Types [...] No pathogens isolated. 10/21/2024 10:51 AM EST [facility] Gram Stain Result No polymorphonuclear leukocytes, No epithelial cells, and No organisms noted 10/21/2024 10:51 AM EST [facility] Swab 10/18/2024 10/18/2024 8:0 7 PM EST us Gissel Vasquez MD LAB MICROBIOLOGY - GENERA L ORDERABLES Final Result [facility] [address] [place] [address], documented in this encounter Visit Diagnoses Diagnosis Unspecified conjunctivitis documented in this encounter Care Teams Core Machine Tender Relationship Specialty Start Date End Date Dominik Moses MD [address] [facility] [address] [place], [place] PCP - General Pediatrics 08/27/21 documented as of this encounter
--- OUTSIDE RECORDS SUMMARY | 2025-05-27 16:25 | XMS_ITS | Encounter Summary ---
Author Organization [facility] Address [address] [place] [address] Phone Care Team Providers Care Farmworker Turkey Farm Name Role Phone Blanco Webster MD Primary Care Provider [phone] Encounter Details Date Type Department Care Team (Late st Contact Info) Description 04/18/2013 Documentation [facility] Family Medicine [address] [place], [place] [id number] Family Medicine, Physician [address] [place] [address] Social History Tobacco Use Types Packs/Day Years [...] on filedocumented in this encounter Care Teams Farmworker Turkey Farm Relationship Specialty Start Date End Date Blanco Webster MD [address] [place] [address] [place] [address] PCP - General 03/21/18 documented as of this encounter
== END 2025-05-27 16:16 | disposition home or self-care (01) ==
LOC: HO.HOP 15:14
PROVIDERS: Visit Provider Counselor Mental Health
DX: F41.1 Generalized anxiety disorder (principal); F33.1 Major depressive disorder, recurrent, moderate; F43.9 Reaction to severe stress, unspecified
CPT/HCPCS: 90834

== ENCOUNTER 2025-06-24 10:15 | Outpatient (AMB) | payer BC, MEDICAID, SELFPAY ==
--- NOTE | 2025-06-24 10:10 | A.OFFWM_ITS ---
Intake Intake Visit Reasons: VIDEO OP Therapy Allergies ciclopirox Allergy (Intermediate, Verified 10/27/24 10:56) Rash gluten Adverse Reaction (Mild, Verified 10/27/24 16:52) Itching lactose Adverse Reaction (Mild, Verified 10/27/24 16:52) Itching PFSH Medical History Chronic pelvic pain in male Cyst of epididymis Testicular pain, left Scrotal pain Trauma and stressor-related disorder Major depressive disorder, recurrent episode Generalized anxiety disorder HIV (human immunodeficiency virus infection) Social History Comment: Alcohol occasional Substance Use Type: Marijuana Sexual orientation: Lesbian/Saenz/Homosexual Gender identity: Male Behavioral Health Assessment Weight Management Therapy Therapy Notes Details Subjective: Patient reports not doing well overall and described dealing with not fun things happening to me. He shared ongoing physical health concerns, housing instability, and emotional frustration related to multiple life stressors. Despite these challenges, he noted a sense of hopefulness after beginning participation in a clinical trial this week, which targets individuals with similar presenting concerns. He is cautiously optimistic about the potential benefits. Objective: Patient presented for a follow-up behavioral health appointment via Telehealth. CBT-based interventions were implemented to help address emotional reactivity a nd perceived helplessness. * Patient engaged in guided cognitive restructuring to challenge negative automatic thoughts related to his housing and health concerns. * Problem-solving techniques were initiated to help break down larger stressors into manageable steps. * Psychoeducation was provided around the impact of chronic stress on mood and functioning. * Therapist helped the patient identify small, realistic actions he can take to feel a sense of agency. * Patient was encouraged to track emotional triggers and explore pkrjnhj-dvplcan-lvleiecq patterns. Assessment/Response: * Mental status: Patient appeared alert, oriented ?3, and cooperative. Mood was low; affect was constricted but appropriate. Thought process was logical and goal-directed. No signs of psychosis. Speech was normal. Insight and judgment were fair. * Risk reported/identified: None. Assessment & Plan Assessment & Plan (1) Generalized anxiety disorder: Code(s): F41.1 - Generalized anxiety disorder (2) Major depressive disorder, recurrent episode: Code(s): F33.9 - Major depressive disorder, recurrent, unspecified Qualifiers: Major depression episode severity: moderate Qualified Code(s): F33.1 - Major depressive disorder, recurrent, moderate (3) Trauma and stressor-related disorder: Code(s): F43.9 - Reaction to severe stress, unspecified Plan Continue bi-weekly Telehealth sessions with CBT focus on emotional regulation, problem-solving, and control. Monitor response to clinical trial. Encourage tracking of emotional patterns. * Next session: 07/08/25 at 10:00 AM (video). Telehealth Telehealth Telehealth Platform: Other (please specify) ([email or web address] - Server [employer] did not worked for PT.) Location of provider rendering services: other (Home office. [place], [place]) Location of patient: address on file Patient Identification confirmed using: Name, : Yes Telehealth method: video Patient verbally consented to treatment: Yes Patient verbally consented to billing insurance company: Yes Patient informed of any privacy concerns related to visit: Yes Minutes spent on Phone/Video with Pt.: 50 Coding Level of Care Code Established Pt Tele Psytx 45 mins ([id number]) Patient Type Established Diagnoses Generalized anxiety disorder F41.1 Moderate episode of recurrent major depressive disorder F33.1 Major depression episode severity: moderate Trauma and stressor-related disorder F43.9 Time Spent (min) 50
--- OUTSIDE RECORDS SUMMARY | 2025-06-24 11:17 | XMS_ITS | Clinical Summary ---
Author Organization [facility] Address [address] [place] [address] Phone Care Team Providers Care Document Preparation Specialist Name Role Phone Jose Guadalupe Vargas MD Primary Care Provider [phone] Jose Guadalupe Vargas MD Unavailable [phone] Social History Tobacco Use Types Packs/Day Years Used Date Smoking Tobacco: Never Assessed Sex and Gender Information Value Date Recorded Sex Assigned at Not on file Legal Sex Male 7:37 PM EDT Gender Identity Not on file Sexual Orientation Not on file Plan of Treatment Not on file Care Teams Document Preparation Specialist Relationship Specialty Start Date End Date Jose Guadalupe Vargas MD [address] [place] [address] PCP - General 10/01/08 Jose Guadalupe Vargas MD [address] [place] [address] PCP - Insurance PCP 10/01/08
--- OUTSIDE RECORDS SUMMARY | 2025-06-24 11:17 | XMS_ITS | Encounter Summary ---
Author Organization [facility] Address [address] [place] [address] Phone Care Team Providers Care Lump Maker Name Role Phone Blanco Webster MD Primary Care Provider [phone] Encounter Details Date Type Department Care Team (Late st Contact Info) Description 04/18/2013 Documentation [facility] Family Medicine [address] [place], [place] [phone] Family Medicine, Physician [address] [place] [address] Social History Tobacco Use Types Packs/Day Years [...] on filedocumented in this encounter Care Teams Lump Maker Relationship Specialty Start Date End Date Blanco Webster MD [address] [place] [address] [place] [address] PCP - General 03/21/18 documented as of this encounter
--- OUTSIDE RECORDS SUMMARY | 2025-06-24 11:17 | XMS_ITS | Encounter Summary ---
Author Organization [facility] Address [address] [place] [address] Care Team Providers Care Salesperson Toy Trains And Accessories Name Role Phone Dominik Moses MD Primary Care Provider Encounter Details Date Type Department Care Team (Late st Contact Info) Description 10/18/2024 Lab Requisition [facility] - Main Lab [address] [place] [address] Gissel Vasquez MD [address] [place] [address] Unspecified conjunctivitis Social History Tobacco Use Types [...] No pathogens isolated. 10/21/2024 10:51 AM EST [facility] Gram Stain Result No polymorphonuclear leukocytes, No epithelial cells, and No organisms noted 10/21/2024 10:[address] [facility] Swab 10/18/2024 10/18/2024 8:0 7 PM EST us Gissel Vasquez MD LAB MICROBIOLOGY - GENERA L ORDERABLES Final Result [facility] [address] [place] [address], documented in this encounter Visit Diagnoses Diagnosis Unspecified conjunctivitis documented in this encounter Additional Health Concerns Infection Onset Date Last Indicated Resolved Time Respiratory Rule-Out 06/13/2025 06/13/2025 025 2:20 PM EDT documented as of this encounter Care Teams Salesperson Toy Trains [employer] Accessories Relationship Specialty Start Date End Date Dominik Moses MD [address] [facility] [address] [place], [place] PCP - General Pediatrics 08/27/21 documented as of this encounter
== END 2025-06-24 11:13 | disposition home or self-care (01) ==
LOC: HO.HOP 10:15
PROVIDERS: Visit Provider Counselor Mental Health
DX: F41.1 Generalized anxiety disorder (principal); F33.1 Major depressive disorder, recurrent, moderate; F43.9 Reaction to severe stress, unspecified
CPT/HCPCS: 90834

== ENCOUNTER 2025-07-08 10:17 | Outpatient (AMB) | payer BC, MEDICAID, SELFPAY ==
--- NOTE | 2025-07-08 10:20 | MHC.WMTHER ---
Intake Intake Visit Reasons: VIDEO OP Therapy Allergies ciclopirox Allergy (Intermediate, Verified 10/27/24 10:56) Rash gluten Adverse Reaction (Mild, Verified 10/27/24 16:52) Itching lactose Adverse Reaction (Mild, Verified 10/27/24 16:52) Itching [facility] Medical History Chronic pelvic pain in male Cyst of epididymis Testicular pain, left Scrotal pain Trauma and stressor-related disorder Major depressive disorder, recurrent episode Generalized anxiety disorder HIV (human immunodeficiency virus infection) Social History Comment: Alcohol occasional Substance Use Type: Marijuana Sexual orientation: Lesbian/Saenz/Homosexual Gender identity: Male Behavioral Health Assessment Weight Management Therapy Therapy Notes Details Subjective: The patient reports feeling upset and stressed after being denied services due to insurance issues, which has contributed to a sense of frustration and helplessness. He is also experiencing ongoing stress related to various life challenges, particularly the instability and ups and downs within his household. Additional sources of distress include difficulties with disability claims and worsening physical limitations due to chronic pain, which have further impacted his mood and daily functioning. Objective: The patient attended a follow-up session via Telehealth, appearing appropriately engaged and oriented. During the session, the patient processed recent experiences of being denied services and the emotional impact of ongoing insurance and disability claim issues. Interventions included reflective listening and validation of his frustration and stress. Psychoeducation was provided regarding the impact of chronic stress and pain on emotional well-being. The patient was encouraged to identify and utilize adaptive coping strategies, such as pacing activities, relaxation techniques, and seeking social support. Together, we explored problem-solving approaches for managing household stressors and discussed potential advocacy steps for addressing insurance and disability claim barriers. Supportive counseling was provided throughout the session, and the patient was encouraged to monitor his mood and pain levels, as well as to practice self-care. Assessment/Response: Mental status: The patient is alert and oriented, with mood described as stressed and affect congruent. Thought processes are logical and coherent. No evidence of psychosis or cognitive impairment. Risk reported/identified:he patient denies any suicidal or homicidal ideation. No acute safety concerns identified at this time. The patient continues to experience significant stress and emotional distress related to insurance denials, household instability, disability claim challenges, and worsening physical limitations. He demonstrates insight into his situation and is receptive to therapeutic interventions. Assessment & Plan Assessment & Plan (1) Generalized anxiety disorder: Code(s): F41.1 - Generalized anxiety disorder (2) Major depressive disorder, recurrent episode: Code(s): F33.9 - Major depressive disorder, recurrent, unspecified Qualifiers: Major depression episode severity: moderate Qualified Code(s): F33.1 - Major depressive disorder, recurrent, moderate (3) Trauma and stressor-related disorder: Code(s): F43.9 - Reaction to severe stress, unspecified Plan Continue supportive psychotherapy with a focus on stress management, coping with chronic pain, and problem-solving around insurance and disability claim issues.? Follow-up appointment scheduled in two weeks on 07/22/2025. Patient encouraged to reach out sooner if symptoms worsen or additional support is needed. Telehealth Telehealth Telehealth Platform: [facility] Location of provider rendering services: other (Home office. [place], [place]) Location of patient: address on file Patient Identification confirmed using: Name, : Yes Telehealth method: video Patient verbally consented to treatment: Yes Patient verbally consented to billing insurance company: Yes Patient informed of any privacy concerns related to visit: Yes Minutes spent on Phone/Video with Pt.: 50 [place] [id number] Tele Psytx 45 mins Patient Type Established Diagnoses Generalized anxiety disorder F41.1 Moderate episode of recurrent major depressive disorder F33.1 Major depression episode severity: moderate Trauma and stressor-related disorder F43.9 Time Spent (min) 50 Comment start time: 10:10am - End time: 11:00am
--- OUTSIDE RECORDS SUMMARY | 2025-07-08 10:57 | XMS_ITS | Clinical Summary ---
Author Organization [address] [facility] Address [address] [place] [address] Phone Care Team Providers Care Steam Tank Operator Name Role Phone Dominik Moses MD Primary Care Provider Encounters Date Type Department Care Team Description 06/13/2025 Lab Requisition [facility] - Main Lab [address] [place] [address] Gissel Vasquez MD Encounter for gynecological examination (general) (routine) without abnormal findings; Contact with and (suspected) exposure to other viral communicable diseases from Last 3 Months Medical History Medical History Date Comments Myopia DX:Myopia HIV infection (CMS/HCC V24, CMS/HCC V28) DX:HIV infection ([facility]) Family History Medical History Relation [...] 5 Years) and At-Risk Patients (6 to 49 Years) (1 of 2 - PCV) 2021 Hepatitis C Screening 10/11/2022 Social Influencers of Health Screening 10/11/2022 Depression Screening 11/13/2024 Influenza Vaccine (#1) 2025 HIB Vaccines Aged Out No longer [...] Procedure Name Priority Date/Time Associated Diagnosis Comments [id number], RSV, FLU A AND B QUALITATIVE RT-PCR, LOCAL REFERENCE LAB Routine 06/13/2025 3:35 PM EDT Encounter for gynecological examination (general) (routine) without abnormal findings Contact with and (suspected) exposure to other viral communicable diseases CHLAMYDIA TRACHOMATIS AND NEISSERIA GONORRHOEAE PCR Routine 06/13/2025 3:35 PM EDT Encounter for gynecological examination (general) (routine) without abnormal findings Contact with and (suspected) exposure to other viral communicable diseases CHLAMYDIA TRACHOMATIS AND NEISSERIA GONORRHOEAE PCR Routine 06/13/2025 3:35 PM EDT Encounter for gynecological examination (general) (routine) without abnormal findings Contact with and (suspected) exposure to other viral communicable diseases CHLAMYDIA TRACHOMATIS AND NEISSERIA GONORRHOEAE PCR Routine 06/13/2025 3:35 PM EDT Encounter for gynecological examination (general) (routine) without abnormal findings Contact with and (suspected) exposure to other viral communicable diseases from Last 3 Months Results * [id number], RSV, Influenza A and B qualitative RT-PCR (06/13/2025 3:35 PM EDT) SARS COV-2 Not Detected Not Detected LAB MOLECULAR DIAGNOSTICS METHOD 06/14/2025 2:20 PM EDT [facility] Comment: Disclaimer: The manner in which this information is used to guide patient care is the responsibility of the healthcare provider. Testing was performed using the [employer] m SARS-CoV-2 test. This test has been authorized by FDA under an Emergency Use Authorization (EUA). This test is only authorized for the duration of time the declaration that circumstances exist justifying the authorization of the emergency use of in vitro diagnostic tests for detection of SARS-CoV-2 virus and/or diagnosis of COVID-19 infection under section 564(b)(1) of the Act, 21 U.S.C. 360bbb- 3(b)(1), unless the authorization is terminated or revoked sooner. Fact sheet for Healthcare Providers can be found at: https://www.fda.gov/media/704782/download Fact sheet for Patients can be found at: https://www.fda.gov/media/337285/download Influenza A PCR Not Detected Not Detected LAB MOLECULAR DIAGNOSTICS METHOD 06/14/2025 2:20 PM EDT [facility] Influenza B PCR Not Detected Not Detected LAB MOLECULAR DIAGNOSTICS METHOD 06/14/2025 2:20 PM EDT [facility] RSV PCR Not Detected Not Detected LAB MOLECULAR DIAGNOSTICS METHOD 06/14/2025 2:20 PM EDT [facility] Swab Nasopharyngeal structure / Unknown 06/13/2025 3:35 PM EDT 06/13/2025 6:58 PM EDT Gissel Vasquez MD LAB MICROBIOLOGY - GENERA L ORDERABLES Final Result Performing Organization Address [facility]/ZIP Co de Phone Number [facility] [address] [place] [address], [place] [phone] * Chlamydia trachomatis and Neisseria gonorrhoeae molecular study (06/13/2025 3:35 PM EDT) Only the most recent of3 resultswithin the time period is included. Neisseria gonorrhoeae PCR Negative Negative LAB MOLECULAR DIAGNOSTICS METHOD 06/14/2025 3:09 PM EDT [facility] Chlamydia trachomatis PCR Negative Negative LAB MOLECULAR DIAGNOSTICS METHOD 06/14/2025 3:09 PM EDT [facility] Urine Urine specimen from urethra / Unknown 06/13/2025 3:35 PM EDT 06/13/2025 6:58 PM EDT Gissel Vasquez MD LAB MICROBIOLOGY - GENERA L ORDERABLES Final Result Performing Organization Address [facility] Co de Phone Number [facility] [address] [place] [address], [place] [phone] from Last [address] [facility] Member Subscriber Plan / Payer (Ef fective 2022-Present) Name:DAVID HEWITT Relation to Subscriber:Child Name:JONY HEWITT Date of :1969 Address: [address] [place] [id number] Payer ID:[id number] Type:Not on file Address: [address] [place] [address] [place] Care Teams Steam Tank Operator Relationship Specialty Start Date End Date Dominik Moses MD [address] [facility] [address] [place], [place] PCP - General Pediatrics 08/27/21
--- OUTSIDE RECORDS SUMMARY | 2025-07-08 10:57 | XMS_ITS | Encounter Summary ---
Author Organization [facility] Address [address] [place] [address] Care Team Providers Care Roving Can Tender Name Role Phone Dominik Moses MD Primary Care Provider [phone] Encounter Details Date Type Department Care Team (Late st Contact Info) Description 10/18/2024 Lab Requisition [facility] - Main Lab [address] [place] [address] Gissel Vasquez MD [address] [place] [address] Erythema intertrigo Social History Tobacco Use Types [...] pathogens noted. 10/21/2024 10:53 AM EST [facility] Swab Urethral structure / Unknown 10/18/2024 10/18/2024 8:11 PM EST us Gissel Vasquez MD LAB MICROBIOLOGY - GENERA L ORDERABLES Final Result [facility] [address] [place] [address], documented in this encounter Visit Diagnoses Diagnosis Erythema intertrigo Other specified erythematous condition documented in this encounter Additional Health Concerns Infection Onset Date Last Indicated Resolved Time Respiratory Rule-Out 06/13/2025 06/13/2025 025 2:20 PM EDT documented as of this encounter Care Teams Roving Can Tender Relationship Specialty Start Date End Date Dominik Moses MD [address] [facility] [address] [place], [place] PCP - General Pediatrics 08/27/21 documented as of this encounter
--- OUTSIDE RECORDS SUMMARY | 2025-07-08 10:57 | XMS_ITS | Clinical Summary ---
Author Organization [facility] Address [address] [place] [address] Phone Care Team Providers Care Allied Health Instructor Name Role Phone Blanco [place] MD Primary Care Provider [phone] Social History Tobacco Use Types Packs/Day Years [...] of 3 - 19+ 3-dose series) 2021 COVID-19 Vaccine (1 - 2023-2 5 season) 2024 Influenza Vaccines (#1) 2025 HIB Vaccines Aged Out No [...] age to complete this topic Care Teams Allied Health Instructor Relationship Specialty Start Date End Date Blanco [place] MD [facility] [facility] [place] [address] PCP - General 03/21/18
--- OUTSIDE RECORDS SUMMARY | 2025-07-08 10:57 | XMS_ITS | Clinical Summary ---
Author Organization [facility] Address [address] [place] [address] Phone Care Team Providers Care Transliterator Name Role Phone Jose Guadalupe Vargas MD Primary Care Provider [phone] Jose Guadalupe Vargas MD Unavailable [phone] Social History Tobacco Use Types Packs/Day Years Used Date Smoking Tobacco: Never Assessed Sex and Gender Information Value Date Recorded Sex Assigned at Not on file Legal Sex Male 7:37 PM EDT Gender Identity Not on file Sexual Orientation Not on file Plan of Treatment Not on file Care Teams Transliterator Relationship Specialty Start Date End Date Jose Guadalupe Vargas MD [address] [place] [address] PCP - General 10/01/08 Jose Guadalupe Vargas MD [address] [place] [address] PCP - Insurance PCP 10/01/08
--- OUTSIDE RECORDS SUMMARY | 2025-07-08 10:57 | XMS_ITS | Encounter Summary ---
Author Organization [facility] Address [address] [place] [address] Care Team Providers Care Stone Processing Machine Operator Name Role Phone Dominik [place] MD Primary Care Provider Encounter Details Date Type Department Care Team (Latest Contact Info) Description 12/11/2024 Lab Requisition [facility] - Main Lab [address] [place] [address] Gissel Vasquez MD [address] [place] [address] Contact with and (suspected) exposure to infections [...] of transmission Human immunodeficiency virus (HIV) disease ([facility]) URINALYSIS WITH REFLEX MICROSCOPIC Routine 12/11/2024 12:00 AM EST Contact with and (suspected) exposure to infections with a predominantly sexual mode of transmission Human immunodeficiency virus (HIV) disease ([facility]/HCC) CHLAMYDIA TRACHOMATIS AND NEISSERIA GONORRHOEAE PCR Routine 12/11/2024 12:00 AM EST Contact with and (suspected) exposure to infections with a predominantly sexual mode of transmission Human immunodeficiency virus (HIV) disease ([facility]/HCC) CHLAMYDIA TRACHOMATIS AND NEISSERIA GONORRHOEAE PCR Routine 12/11/2024 12:00 AM EST Contact with and (suspected) exposure to infections with a predominantly sexual mode of transmission Human immunodeficiency virus (HIV) disease ([facility]/HCC) CHLAMYDIA TRACHOMATIS AND NEISSERIA GONORRHOEAE PCR Routine 12/11/2024 12:00 AM EST Contact with and (suspected) exposure to infections with a predominantly sexual mode of transmission Human immunodeficiency virus (HIV) disease ([facility]/HCC) CULTURE WOUND DEEP Routine 12/11/2024 12 :00 AM EST Contact with and (suspected) exposure to infections with a predominantly sexual mode of transmission Human immunodeficiency virus (HIV) disease ([facility]) documented in this encounter Results * (ABNORMAL) Urinalysis with reflex microscopic (12/11/2024 12:00 AM EST) Specific [place] Urine 1.026 1.003 - 1.030 LAB URINALYSIS - AUTOMATED METHOD 12/11/2024 7:38 PM [facility] pH, Urine 5.5 5.0 - 8.0 pH LAB URINALYSIS - AUTOMATED METHOD 12/11/2024 7:38 PM [facility] Leukocytes, Urine Trace(A) Negative LAB URINALYSIS - AUTOMATED METHOD 12/11/2024 7:38 PM [facility] Nitrite, Urine Negative Negative LAB URINALYSIS - AUTOMATED METHOD 12/11/2024 7:38 PM [facility] Protein, Urine Trace <=Trace mg/dL LAB URINALYSIS - AUTOMATED METHOD 12/11/2024 7:38 PM [facility] Glucose, Urine Negative Negative mg/dL LAB URINALYSIS - AUTOMATED METHOD 12/11/2024 7:38 PM [facility] Ketones, Urine 15(A) Negative mg/dL LAB URINALYSIS - AUTOMATED METHOD 12/11/2024 7:38 PM [facility] Urobilinogen, Urine 1.0 0.2 - 1.0 mg/dL LAB URINALYSIS - AUTOMATED METHOD 12/11/2024 7:38 PM [facility] Bilirubin, Urine Negative Negative LAB URINALYSIS - AUTOMATED METHOD 12/11/2024 7:38 PM [facility] Blood, Urine Negative Negative LAB URINALYSIS - AUTOMATED METHOD 12/11/2024 7:38 PM [facility] RBC, Urine 4.7(H) 0 - 4 /HPF LAB URINALYSIS - AUTOMATED METHOD 12/11/2024 7:38 PM [facility] WBC, Urine 0.0 0 - 4 /HPF LAB URINALYSIS - AUTOMATED METHOD 12/11/2024 7:38 PM [facility] Squamous Epithelial, Urine 3 0 - 60 /LPF LAB URINALYSIS - AUTOMATED METHOD 12/11/2024 7:38 PM [facility] Bacteria, Urine Negative Negative /HPF LAB URINALYSIS - AUTOMATED METHOD 12/11/2024 7:38 PM [facility] Hyaline Casts, Urine 0.0 0 - 3 /LPF LAB URINALYSIS - AUTOMATED METHOD 12/11/2024 7:38 PM [facility] Urine Urine specimen obtained by clean catch procedure / Unknown 12/11/2024 12/11/2024 7:25 PM EST us Gissel Vasquez MD LAB URINE ORDERABLES Mohini caraballo Result [facility] [address] [place] [address], [place] [phone] * Chlamydia trachomatis and Neisseria gonorrhoeae molecular study (12/11/2024 12:00 AM EST) Neisseria gonorrhoeae PCR Negative Negative LAB MOLECULAR DIAGNOSTICS METHOD 05/26/2025 1:56 PM EDT [facility] Comment: This specimen type has not been evaluated for this method. Interpret results with caution. RECTUM Chlamydia trachomatis PCR Negative Negative LAB MOLECULAR DIAGNOSTICS METHOD 05/26/2025 1:56 PM EDT [facility] Comment: This specimen type has not been evaluated for this method. Interpret results with caution. RECTUM Swab Rectum structure / Unknown 12/11/2024 12/11/2024 7:25 PM EST us Gsisel Vasquez MD LAB MICROBIOLOGY - GENERA L ORDERABLES Edited Result - Final Performing Organization Address [facility]/ZIP Co de Phone Number [facility] [address] [place] [address], * Chlamydia trachomatis and Neisseria gonorrhoeae molecular study (12/11/2024 12:00 AM EST) Pathologist [facility] Neisseria gonorrhoeae PCR Negative Negative LAB MOLECULAR DIAGNOSTICS METHOD 05/27/2025 12:31 PM EDT [facility] Comment: This specimen type has not been evaluated for this method. Interpret results with caution. THROAT Chlamydia trachomatis PCR Negative Negative LAB MOLECULAR DIAGNOSTICS METHOD 05/27/2025 12:31 PM EDT [facility] Comment: This specimen type has not been evaluated for this method. Interpret results with caution. THROAT Swab Structure of anterior portion of neck / Unknown 12/11/2024 12/11/2024 7:25 PM EST us Gissel Vasquez MD LAB MICROBIOLOGY - GENERA L ORDERABLES Edited Result - Final Performing Organization Address [facility]/ZIP Co de Phone Number [facility] [address] [place] [address], * Chlamydia trachomatis and Neisseria gonorrhoeae molecular study (12/11/2024 12:00 AM EST) Neisseria gonorrhoeae PCR Negative Negative LAB MOLECULAR DIAGNOSTICS METHOD 12/12/2024 9:29 AM EST [facility] Chlamydia trachomatis PCR Negative Negative LAB MOLECULAR DIAGNOSTICS METHOD 12/12/2024 9:29 AM EST [facility] Urine Urine specimen from urethra / Unknown 12/11/2024 12/11/2024 7:25 PM EST us Gissel Vasquez MD LAB MICROBIOLOGY - GENERA L ORDERABLES Final Result [facility] [address] [place] [address], * (ABNORMAL) Culture wound deep (12/11/2024 12:00 AM EST) Culture, Wound Few Staphylococcus epidermidis(A) MARYNA 12/15/2024 12:33 PM [facility] Comment: The organism value for this result has been updated. These results have been appended to the previously preliminary verified report. Edited result: Previously reported as Gram Positive Cocci on 12/15/2024 at 1224 EST. Culture, Wound Few Staphylococcus epidermidis(A) MARYAN 12/15/2024 12:33 PM EST [facility] Comment: The organism value for this result has been updated. These results have been appended to the previously preliminary verified report. Edited result: Previously reported as Gram Positive Cocci on 12/15/2024 at 1224 EST. Gram Stain Result No polymorphonuclear leukocytes, No epithelial cells, and No organisms noted 12/15/2024 12:33 PM [facility] Swab Structure of left foot [...] MICROBIOLOGY - GENERA L ORDERABLES Final Result [facility] [address] [place] [address], documented in this encounter Visit Diagnoses Diagnosis Contact with and (suspected) exposure to infections with a predominantly sexual mode of transmission Human immunodeficiency virus (HIV) disease ([facility] V24, [facility] V28) Human immunodeficiency virus [HIV] disease documented in this encounter Additional Health Concerns Infection Onset Date Last Indicated Resolved Time Respiratory Rule-Out 06/13/2025 06/13/2025 025 2:20 PM EDT documented as of this encounter Care Teams Stone Processing Machine Operator Relationship Specialty Start Date End Date Dominik Moses MD [address] [facility] [address] [place], [place] PCP - General Pediatrics 08/27/21 documented as of this encounter
--- OUTSIDE RECORDS SUMMARY | 2025-07-08 10:57 | XMS_ITS | Encounter Summary ---
Author Organization [facility] [address] Address [address] [place] [address] Care Team Providers Care Canvas Goods Maker Name Role Phone Dominik Moses MD Primary Care Provider [phone] Encounter Details Date Type Department Care Team (Late st Contact Info) Description 06/13/2025 Lab Requisition [facility] - Main Lab [address] [place] [address] Gissel Vasquez MD [address] [place] [address] Encounter for gynecological examination (general) (routine) without abnormal findings; Contact with and (suspected) exposure to other viral communicable diseases Social History Tobacco Use Types Packs/Day Years [...] Procedure Name Priority Date/Time Associated Diagnosis Comments [id number], RSV, FLU A AND B QUALITATIVE RT-PCR, [...] (suspected) exposure to other viral communicable diseases documented in this encounter Results * [id number], RSV, Influenza A and B qualitative RT-PCR (06/13/2025 3:35 PM EDT) [facility] SARS COV-2 Not Detected Not Detected LAB MOLECULAR DIAGNOSTICS METHOD 06/14/2025 2:20 PM EDT [facility] Comment: Disclaimer: The manner in which this information is used to guide patient care is the responsibility of the healthcare provider. Testing was performed using the [employer] m SARS-CoV-2 test. This test has been [...] for Healthcare Providers can be found at: https://www.fda.gov/media/322730/download Fact sheet for Patients can be found at: https://www.fda.gov/media/780144/download Influenza A PCR Not Detected Not Detected LAB MOLECULAR DIAGNOSTICS METHOD 06/14/2025 2:20 PM EDT [facility] Influenza B PCR Not Detected Not Detected LAB MOLECULAR DIAGNOSTICS METHOD 06/14/2025 2:20 PM EDT [facility] RSV PCR Not Detected Not Detected LAB MOLECULAR DIAGNOSTICS METHOD 06/14/2025 2:20 PM EDT [facility] Swab Nasopharyngeal structure / Unknown 06/13/2025 3:35 PM EDT 06/13/2025 6:58 PM EDT us Gissel Vasquez MD LAB MICROBIOLOGY - GENERA L ORDERABLES Final Result Performing Organization Address City/[facility]/ZIP Co de Phone Number [facility] [address] [place] [address], [place] [phone] * Chlamydia trachomatis and Neisseria gonorrhoeae molecular study (06/13/2025 3:35 PM EDT) Neisseria gonorrhoeae PCR Negative Negative LAB MOLECULAR DIAGNOSTICS METHOD 06/14/2025 3:09 PM EDT [facility] Chlamydia trachomatis PCR Negative Negative LAB MOLECULAR DIAGNOSTICS METHOD 06/14/2025 3:09 PM EDT [facility] Urine Urine specimen from urethra / Unknown 06/13/2025 3:35 PM EDT 06/13/2025 6:58 PM EDT us Gissel Vasquez MD LAB MICROBIOLOGY - GENERA L ORDERABLES Final Result Performing Organization Address City/[facility]/ZIP Co de Phone Number [facility] [address] [place] [address], [place] [phone] * Chlamydia trachomatis and Neisseria gonorrhoeae molecular study (06/13/2025 3:35 PM EDT) Neisseria gonorrhoeae PCR Negative Negative LAB MOLECULAR DIAGNOSTICS METHOD 06/14/2025 10:59 AM EDT [facility] Chlamydia trachomatis PCR Negative Negative LAB MOLECULAR DIAGNOSTICS METHOD 06/14/2025 10:59 AM EDT [facility] Swab Topography unknown / Unknown 06/13/2025 3:35 PM EDT 06/13/2025 6:58 PM EDT Gissel Vasquez MD LAB MICROBIOLOGY - GENERA L ORDERABLES Final Result Performing Organization Address City/[facility]/ZIP Co de Phone Number [facility] [address] [place] [address], [place] [phone] * Chlamydia trachomatis and Neisseria gonorrhoeae molecular study (06/13/2025 3:35 PM EDT) Neisseria gonorrhoeae PCR Negative Negative LAB MOLECULAR DIAGNOSTICS METHOD 06/14/2025 10:59 AM EDT [facility] Chlamydia trachomatis PCR Negative Negative LAB MOLECULAR DIAGNOSTICS METHOD 06/14/2025 10:59 AM EDT [facility] Swab Rectum structure / Unknown 06/13/2025 3:35 PM EDT 06/13/2025 6:58 PM EDT Gissel Vasquez MD LAB MICROBIOLOGY - GENERA L ORDERABLES Final Result Performing Organization Address [facility] Co de Phone Number [facility] [address] [place] [address], [place] [phone] documented in this encounter Visit Diagnoses Diagnosis Encounter for gynecological examination (general) (routine) without abnormal findings Contact with and (suspected) exposure to other viral communicable diseases documented in this encounter Additional Health Concerns Infection Onset Date Last Indicated Resolved Time Respiratory Rule-Out 06/13/2025 06/13/2025 025 2:20 PM EDT documented as of this encounter Care Teams Canvas Goods Maker Relationship Specialty Start Date End Date Dominik Moses MD [address] [facility] [address] [place], [place] PCP - General Pediatrics 08/27/21 documented as of this encounter
--- OUTSIDE RECORDS SUMMARY | 2025-07-08 10:57 | XMS_ITS | Encounter Summary ---
Author Organization [facility] Address [address] [place] [address] Phone Care Team Providers Care Marker Delivery Name Role Phone Blanco Wesbter MD Primary Care Provider [phone] Encounter Details Date Type Department Care Team (Late st Contact Info) Description 04/18/2013 Documentation [facility] [address] [place], [place] [id number] Family Medicine, Physician [address] [place] [address] Social History Tobacco Use Types Packs/Day Years [...] on filedocumented in this encounter Care Teams Marker Delivery Relationship Specialty Start Date End Date Blanco [place] MD [address] [place] [address] [place] [address] PCP - General 03/21/18 documented as of this encounter
--- OUTSIDE RECORDS SUMMARY | 2025-07-08 10:57 | XMS_ITS | Encounter Summary ---
Author Organization [facility] Address [address] [place] [address] Care Team Providers Care Pre School Manager Name Role Phone Dominik [place] MD Primary Care Provider Encounter Details Date Type Department Care Team (Late st Contact Info) Description 10/18/2024 Lab Requisition [facility] - Main Lab [address] [place] [address] Gissel Vasquez MD [address] [place] [address] Unspecified conjunctivitis Social History Tobacco Use Types [...] pathogens isolated. 10/21/2024 10:51 AM EST [facility] Gram Stain Result No polymorphonuclear leukocytes, No epithelial cells, and No organisms noted 10/21/2024 10:51 AM EST [facility] Swab 10/18/2024 10/18/2024 8:0 7 PM EST us Gissel Vasquez MD LAB MICROBIOLOGY - GENERA L ORDERABLES Final Result [facility] [address] [place] [address], documented in this encounter Visit Diagnoses Diagnosis Unspecified conjunctivitis documented in this encounter Additional Health Concerns Infection Onset Date Last Indicated Resolved Time Respiratory Rule-Out 06/13/2025 06/13/2025 025 2:20 PM EDT documented as of this encounter Care Teams Pre School Manager Relationship Specialty Start Date End Date Dominik Moses MD [address] [facility] [address] [place], [place] PCP - General Pediatrics 08/27/21 documented as of this encounter
== END 2025-07-08 11:11 | disposition home or self-care (01) ==
LOC: HO.HOP 10:17
PROVIDERS: Visit Provider Counselor Mental Health
DX: F41.1 Generalized anxiety disorder (principal); F33.1 Major depressive disorder, recurrent, moderate; F43.9 Reaction to severe stress, unspecified
CPT/HCPCS: 90834

== ENCOUNTER 2025-08-05 10:17 | Outpatient (AMB) | payer BC, MEDICAID, SELFPAY ==
--- NOTE | 2025-08-05 10:15 | A.OFFWM_ITS ---
Intake Intake Visit Reasons: VIDEO OP Therapy Allergies ciclopirox Allergy (Intermediate, Verified 10/27/24 10:56) Rash gluten Adverse Reaction (Mild, Verified 10/27/24 16:52) Itching lactose Adverse Reaction (Mild, Verified 10/27/24 16:52) Itching PFSH Medical History Chronic pelvic pain in male Cyst of epididymis Testicular pain, left Scrotal pain Trauma and stressor-related disorder Major depressive disorder, recurrent episode Generalized anxiety disorder HIV (human immunodeficiency virus infection) Social History Comment: Alcohol occasional Substance Use Type: Marijuana Sexual orientation: Lesbian/Saenz/Homosexual Gender identity: Male Behavioral Health Assessment Weight Management Therapy Therapy Notes Details Subjective: The patient presents today reporting significant discomfort due to a flare-up of pain and eczema in the genital area, which is causing major discomfort and difficulty with ambulation. He describes his current state as ?just surviving,? and shares that over the past 6?8 months, he has felt persistently discouraged, stating he is in a ?this sucks-mode? due to the lack of answers and limited treatment alternatives for his ongoing symptoms. The patient expresses frustration and emotional exhaustion related to the chronicity and complexity of his medical issues. Objective: The patient attended a follow-up session via Telehealth. He was last scheduled for a session on 07/22/2025 but had to cancel due to a scheduling conflict. Today?s session focused on an annual review and updating the treatment plan. The patient appeared fatigued but was engaged and communicative throughout the session. Interventions included supportive counseling to process his frustration and validate his experience of chronic illness. Psychoeducation was provided regarding the importance of ongoing self-care and adherence to his multidisciplinary treatment plan. The patient was encouraged to continue utilizing adaptive coping strategies and to communicate openly with his care team regarding symptom changes. Due to the persistence and severity of his symptoms, weekly sessions will continue to provide consistent support and monitoring. Assessment/Response: * Mental status: The patient is alert and oriented, with mood described as discouraged and affect congruent. Thought processes are logical and coherent. No evidence of psychosis or cognitive impairment. * Risk reported/identified: The patient denies suicidal or homicidal ideation. No acute safety concerns identified at this time. Annual Review: PT continues attending counseling sessions on a bi-weekly basis. The patient continues to experience significant physical and emotional distress related to chronic pain, eczema, and associated functional limitations. He demonstrates insight into his condition and remains engaged in treatment, though he reports ongoing frustration and low mood. The patient remains actively engaged in counseling, now transitioning to weekly sessions due to increased symptom burden. He continues to follow with multiple providers for comprehensive care, including: * Primary Care:?Leif Downs, [facility] ? [place] * Dermatology:?Dr. Osei, [facility] * Psychiatric Medication Management:?Alisa Mesa, Shyam León, [facility] * Infectious Disease:?Dr. Gissel Vasquez MD * Neurology/Immunology:?Dr. Joni Elizabeth, [facility] * Ophthalmology:?[facility] * Pelvic Pain Treatment and Ketamine Therapy:?[facility] Current Medications: * Pregabalin 200 mg twice daily for neuropathic pain * Biktarvy (bictegravir sodium/emtricitabine/tenofovir alafenamide fumarate) once daily * Vortioxetine hydrobromide (Trintellix) 20 mg once daily for depression * Naltrexone 9 mg once daily for nerve pain * Dupilumab (Dupixent) 300 mg injection weekly for eczema * Meclizine 25 mg, 1?3 times daily as needed for motion sickness/vertigo * Ondansetron 4 mg, 1?2 times daily as needed for nausea/vomiting * Ketamine IV every two weeks for depression Assessment & Plan Assessment & Plan (1) Generalized anxiety disorder: Code(s): F41.1 - Generalized anxiety disorder (2) Major depressive disorder, recurrent episode: Code(s): F33.9 - Major depressive disorder, recurrent, unspecified Qualifiers: Major depression episode severity: moderate Qualified Code(s): F33.1 - Major depressive disorder, recurrent, moderate (3) Trauma and stressor-related disorder: Code(s): F43.9 - Reaction to severe stress, unspecified Plan ANNUAL TREATMENT PLAN GOALS: Goal 1: Reduce emotional distress related to insurance, disability claims, and household instability. * Interventions: * Provide supportive counseling to process emotional responses to ongoing stressors. * Teach and reinforce adaptive coping strategies (e.g., relaxation techniques, mindfulness, journaling). * Assist client in identifying and utilizing available resources and advocacy options for insurance and disability claims. Goal 2: Improve management of chronic pain and physical limitations to enhance daily functioning. * Interventions: * Educate client on pacing activities and energy conservation techniques. * Collaborate on developing a personalized self-care and pain management plan. * Encourage regular monitoring of pain levels and activity tolerance. Goal 3: Increase engagement in meaningful activities and support systems to promote resilience. * Interventions: * Facilitate behavioral activation by identifying and scheduling enjoyable or purposeful activities. * Encourage participation in social support networks (family, friends, community resources). * Monitor progress and adjust interventions as needed to maintain motivation and engagement. Given the patient?s increased emotional challenges, weekly follow-up sessions are recommended to provide ongoing support, prevent decompensation, and help maintain recent therapeutic gains. Sessions will focus on monitoring symptoms, reinforcing coping strategies, and addressing any emerging concerns in a timely manner. * The next appointment is scheduled for 08/12/2025 at 10:00 AM via Telehealth. The patient is encouraged to reach out sooner if additional support is needed between sessions. Telehealth Telehealth Telehealth Platform: [employer] Location of provider rendering services: other (Home office. [place], [place]) Location of patient: address on file Patient Identification confirmed using: Name, : Yes Telehealth method: video Patient verbally consented to treatment: Yes Patient verbally consented to billing insurance company: Yes Patient informed of any privacy concerns related to visit: Yes Minutes spent on Phone/Video with Pt.: 55 [place] [address] Tele Psytx >53 mins Patient Type Established Diagnoses Generalized anxiety disorder F41.1 Moderate episode of recurrent major depressive disorder F33.1 Major depression episode severity: moderate Trauma and stressor-related disorder F43.9 Time Spent (min) 55
--- OUTSIDE RECORDS SUMMARY | 2025-08-05 12:29 | XMS_ITS | Encounter Summary ---
Author Organization [facility] Address [address] [place] [address] Care Team Providers Care Dinkey Engine Mechanic Name Role Phone Dominik Moses MD Primary Care Provider [phone] Encounter Details Date Type Department Care Team (Latest Contact Info) Description 12/11/2024 Lab Requisition [facility] - Main Lab [address] [place] [address] Gissel Vasquez MD [address] [place] [id number] Contact with and (suspected) exposure to infections [...] of transmission Human immunodeficiency virus (HIV) disease ([facility]) URINALYSIS WITH REFLEX MICROSCOPIC Routine 12/11/2024 12:00 AM EST Contact with and (suspected) exposure to infections with a predominantly sexual mode of transmission Human immunodeficiency virus (HIV) disease ([facility]/HCC) CHLAMYDIA TRACHOMATIS AND NEISSERIA GONORRHOEAE PCR Routine 12/11/2024 12:00 AM EST Contact with and (suspected) exposure to infections with a predominantly sexual mode of transmission Human immunodeficiency virus (HIV) disease ([facility]/HCC) CHLAMYDIA TRACHOMATIS AND NEISSERIA GONORRHOEAE PCR Routine 12/11/2024 12:00 AM EST Contact with and (suspected) exposure to infections with a predominantly sexual mode of transmission Human immunodeficiency virus (HIV) disease ([facility]/HCC) CHLAMYDIA TRACHOMATIS AND NEISSERIA GONORRHOEAE PCR Routine 12/11/2024 12:00 AM EST Contact with and (suspected) exposure to infections with a predominantly sexual mode of transmission Human immunodeficiency virus (HIV) disease ([facility]/HCC) CULTURE WOUND DEEP Routine 12/11/2024 12 :00 AM EST Contact with and (suspected) exposure to infections with a predominantly sexual mode of transmission Human immunodeficiency virus (HIV) disease ([facility]) documented in this encounter Results * (ABNORMAL) Urinalysis with reflex microscopic (12/11/2024 12:00 AM EST) Specific Ethel Urine 1.026 1.003 - 1.030 LAB URINALYSIS [...] MD LAB URINE ORDERABLES Mohini caraballo Result [facility] [address] [place] [address], [place] [phone] * Chlamydia trachomatis and Neisseria gonorrhoeae molecular study (12/11/2024 12:00 AM EST) Neisseria gonorrhoeae PCR Negative Negative LAB MOLECULAR DIAGNOSTICS METHOD 05/26/2025 1:56 PM EDT [facility] Comment: This specimen type has not been evaluated for this method. Interpret results with caution. RECTUM Chlamydia trachomatis PCR Negative Negative LAB MOLECULAR DIAGNOSTICS METHOD 05/26/2025 1:56 PM EDT [facility] Comment: This specimen type has not been evaluated for this method. Interpret results with caution. RECTUM Swab Rectum structure / Unknown 12/11/2024 12/11/2024 7:25 PM EST us Gissel Vasquez MD LAB MICROBIOLOGY - GENERA L ORDERABLES Edited Result - Final Performing Organization Address [facility]/ZIP Co de Phone Number [facility] [address] [place] [address], * Chlamydia trachomatis and Neisseria gonorrhoeae molecular study (12/11/2024 12:00 AM EST) [facility] Neisseria gonorrhoeae PCR Negative Negative LAB MOLECULAR DIAGNOSTICS METHOD 05/27/2025 12:31 PM EDT [facility] Comment: This specimen type has not been evaluated for this method. Interpret results with caution. THROAT Chlamydia trachomatis PCR Negative Negative LAB MOLECULAR DIAGNOSTICS METHOD 05/27/2025 12:31 PM EDT [facility] Comment: This specimen type has not been evaluated for this method. Interpret results with caution. THROAT Swab Structure of anterior region of neck / Unknown 12/11/2024 12/11/2024 7:25 PM EST us Gissel Vasquez MD LAB MICROBIOLOGY - GENERA L ORDERABLES Edited Result - Final Performing Organization Address [facility]/ZIP Co de Phone Number [facility] [address] [place] [address], * Chlamydia trachomatis and Neisseria gonorrhoeae molecular study (12/11/2024 12:00 AM EST) Neisseria gonorrhoeae PCR Negative Negative LAB MOLECULAR DIAGNOSTICS METHOD 12/12/2024 9:29 AM EST [facility] Chlamydia trachomatis PCR Negative Negative LAB MOLECULAR DIAGNOSTICS METHOD 12/12/2024 9:29 AM EST [facility] Urine Urine specimen from urethra / Unknown 12/11/2024 12/11/2024 7:25 PM EST us Gissel Vasquez MD LAB MICROBIOLOGY - GENERA L ORDERABLES Final Result [facility] [address] [place] [address], * (ABNORMAL) Culture wound deep (12/11/2024 12:00 [...] Staphylococcus epidermidis(A) MARYAN 12/15/2024 12:33 PM EST [facility] Comment: The organism value for [...] MICROBIOLOGY - GENERA L ORDERABLES Final Result [facility] [address] [place] [address], documented in this encounter Visit Diagnoses Diagnosis Contact with and (suspected) exposure to infections with a predominantly sexual mode of transmission Human immunodeficiency virus (HIV) disease ([facility] V24, [facility] V28) Human immunodeficiency virus [HIV] disease documented in this encounter Additional Health Concerns Infection Onset Date Last Indicated Resolved Time Respiratory Rule-Out 06/13/2025 06/13/2025 025 2:20 PM EDT documented as of this encounter Care Teams Dinkey Engine Mechanic Relationship Specialty Start Date End Date Dominik Moses MD [address] [facility] [address] [place], [place] PCP - General Pediatrics 08/27/21 documented as of this encounter
--- OUTSIDE RECORDS SUMMARY | 2025-08-05 12:29 | XMS_ITS | Encounter Summary ---
Author Organization [facility] Address [address] [place] [address] Care Team Providers Care Color Drum Worker Name Role Phone Dominik Moses MD Primary Care Provider [phone] Encounter Details Date Type Department Care Team (Late st Contact Info) Description 10/18/2024 Lab Requisition [facility] - Main Lab [address] [place] [address] Gissel Vasquez MD [address] [place] [address] Unspecified conjunctivitis Social History Tobacco Use Types [...] No pathogens isolated. 10/21/2024 10:51 AM EST [facility] Gram Stain Result No polymorphonuclear leukocytes, No epithelial cells, and No organisms noted 10/21/2024 10:51 AM EST [facility] Swab 10/18/2024 10/18/2024 8:0 7 PM EST us Gissel Vasquez MD LAB MICROBIOLOGY - GENERA L ORDERABLES Final Result [facility] [address] [place] [address], documented in this encounter Visit Diagnoses Diagnosis Unspecified conjunctivitis documented in this encounter Additional Health Concerns Infection Onset Date Last Indicated Resolved Time Respiratory Rule-Out 06/13/2025 06/13/2025 025 2:20 PM EDT documented as of this encounter Care Teams Color Drum Worker Relationship Specialty Start Date End Date Dominik Moses MD [address] [facility] [address] [place], [place] PCP - General Pediatrics 08/27/21 documented as of this encounter
--- OUTSIDE RECORDS SUMMARY | 2025-08-05 12:29 | XMS_ITS | Clinical Summary ---
Author Organization [facility] Address [address] [place] [address] Phone Care Team Providers Care Manual Qa Tester Name Role Phone Jose Guadalupe Vargas MD Primary Care Provider [phone] Jose Guadalupe Vargas MD Unavailable [phone] Social History Tobacco Use Types Packs/Day Years Used Date Smoking Tobacco: Never Assessed Sex and Gender Information Value Date Recorded Sex Assigned at Not on file Legal Sex Male 7:37 PM EDT Gender Identity Not on file Sexual Orientation Not on file Plan of Treatment Not on file Care Teams Manual Qa Tester Relationship Specialty Start Date End Date Jose Guadalupe Vargas MD [address] [place] [address] PCP - General 10/01/08 Jose Guadalupe Vargas MD [address] [place] [address] PCP - Insurance PCP 10/01/08
--- OUTSIDE RECORDS SUMMARY | 2025-08-05 12:29 | XMS_ITS | Encounter Summary ---
Author Organization [facility] Address [address] [place] [address] Care Team Providers Care Internal Revenue Agent Name Role Phone Dominik Moses MD Primary Care Provider [phone] Encounter Details Date Type Department Care Team (Late st Contact Info) Description 06/13/2025 Lab Requisition [facility] - Main Lab [address] [place] [address] Gissel Vasquez MD [address] [place] [address] Encounter for gynecological examination (general) (routine) without [...] Procedure Name Priority Date/Time Associated Diagnosis Comments [id number], RSV, FLU A AND B QUALITATIVE RT-PCR, [...] diseases documented in this encounter Results * [id number], RSV, Influenza A and B qualitative RT-PCR (06/13/2025 3:35 PM EDT) [facility] SARS COV-2 Not Detected Not Detected LAB MOLECULAR DIAGNOSTICS METHOD 06/14/2025 2:20 PM EDT [facility] Comment: Disclaimer: The manner in which this information is used to guide patient care is the responsibility of the healthcare provider. Testing was performed using the [employer] m SARS-CoV-2 test. This test has [...] for Healthcare Providers can be found at: https://www.fda.gov/media/547048/download Fact sheet for Patients can be found at: https://www.fda.gov/media/880828/download Influenza A PCR Not Detected Not Detected LAB MOLECULAR DIAGNOSTICS METHOD 06/14/2025 2:20 PM EDT [facility] Influenza B PCR Not Detected Not Detected LAB MOLECULAR DIAGNOSTICS METHOD 06/14/2025 2:20 PM EDT [facility] RSV PCR Not Detected Not Detected LAB MOLECULAR DIAGNOSTICS METHOD 06/14/2025 2:20 PM EDT [facility] Swab Nasopharyngeal structure / Unknown 06/13/2025 3:35 PM EDT 06/13/2025 6:58 PM EDT us Gissel Vasquez MD LAB MICROBIOLOGY - GENERA L ORDERABLES Final Result Performing Organization Address City/[facility]/ZIP Co de Phone Number [facility] [address] [place] [address], [place] [phone] * Chlamydia trachomatis and Neisseria gonorrhoeae molecular study (06/13/2025 3:35 PM EDT) Neisseria gonorrhoeae PCR Negative Negative LAB MOLECULAR DIAGNOSTICS METHOD 06/14/2025 3:09 PM EDT [facility] Chlamydia trachomatis PCR Negative Negative LAB MOLECULAR DIAGNOSTICS METHOD 06/14/2025 3:09 PM EDT [facility] Urine Urine specimen from urethra / Unknown 06/13/2025 3:35 PM EDT 06/13/2025 6:58 PM EDT us Gissel Vasquez MD LAB MICROBIOLOGY - GENERA L ORDERABLES Final Result Performing Organization Address City/[facility]/ZIP Co de Phone Number [facility] [address] [place] [address], [place] [phone] * Chlamydia trachomatis and Neisseria gonorrhoeae molecular study (06/13/2025 3:35 PM EDT) Neisseria gonorrhoeae PCR Negative Negative LAB MOLECULAR DIAGNOSTICS METHOD 06/14/2025 10:59 AM EDT [facility] Chlamydia trachomatis PCR Negative Negative LAB MOLECULAR DIAGNOSTICS METHOD 06/14/2025 10:59 AM EDT [facility] Swab Topography unknown / Unknown 06/13/2025 3:35 PM EDT 06/13/2025 6:58 PM EDT Gissel Vasquez MD LAB MICROBIOLOGY - GENERA L ORDERABLES Final Result Performing Organization Address City/[facility]/ZIP Co de Phone Number [facility] [address] [place] [address], [place] [phone] * Chlamydia trachomatis and Neisseria gonorrhoeae molecular study (06/13/2025 3:35 PM EDT) Neisseria gonorrhoeae PCR Negative Negative LAB MOLECULAR DIAGNOSTICS METHOD 06/14/2025 10:59 AM EDT [facility] Chlamydia trachomatis PCR Negative Negative LAB MOLECULAR DIAGNOSTICS METHOD 06/14/2025 10:59 AM EDT [facility] Swab Rectum structure / Unknown 06/13/2025 3:35 PM EDT 06/13/2025 6:58 PM EDT Gissel Vasquez MD LAB MICROBIOLOGY - GENERA L ORDERABLES Final Result Performing Organization Address [facility] Co de Phone Number [facility] [address] [place] [address], [place] [phone] documented in this encounter Visit Diagnoses Diagnosis Encounter for gynecological examination (general) (routine) without abnormal findings Contact with and (suspected) exposure to other viral communicable diseases documented in this encounter Additional Health Concerns Infection Onset Date Last Indicated Resolved Time Respiratory Rule-Out 06/13/2025 06/13/2025 025 2:20 PM EDT documented as of this encounter Care Teams Internal Revenue Agent Relationship Specialty Start Date End Date Dominik Moses MD [address] [facility] [address] [place], [place] PCP - General Pediatrics 08/27/21 documented as of this encounter
--- OUTSIDE RECORDS SUMMARY | 2025-08-05 12:29 | XMS_ITS | Encounter Summary ---
Author Organization [facility] Address [address] [place] [address] Care Team Providers Care Physical Director Name Role Phone Dominik Moses MD Primary Care Provider Encounter Details Date Type Department Care Team (Late st Contact Info) Description 10/18/2024 Lab Requisition [facility] - Main Lab [address] [place] [address] Gissel Vasquez MD [address] [place] [address] Erythema intertrigo Social History Tobacco Use Types [...] significant pathogens noted. 10/21/2024 10:53 AM EST [facility] Swab Urethral structure / Unknown 10/18/2024 10/18/2024 8:11 PM EST us Gissel Vasquez MD LAB MICROBIOLOGY - GENERA L ORDERABLES Final Result [facility] [address] [place] [address], documented in this encounter Visit Diagnoses Diagnosis Erythema intertrigo Other specified erythematous condition documented in this encounter Additional Health Concerns Infection Onset Date Last Indicated Resolved Time Respiratory Rule-Out 06/13/2025 06/13/2025 025 2:20 PM EDT documented as of this encounter Care Teams Physical Director Relationship Specialty Start Date End Date Dominik Moses MD [address] [facility] [address] [place], [place] PCP - General Pediatrics 08/27/21 documented as of this encounter
--- OUTSIDE RECORDS SUMMARY | 2025-08-05 12:29 | XMS_ITS | Clinical Summary ---
Author Organization [address] [facility] Address [address] [place] [address] Phone Care Team Providers Care Machine Operator Farmworker Name Role Phone Dominik Moses MD Primary Care Provider Encounters Date Type Department Care Team Description 06/13/2025 Lab Requisition [facility] - Main Lab [address] [place] [address] Gissel Vasquez MD Encounter for gynecological examination (general) (routine) without abnormal findings; Contact with and (suspected) exposure to other viral communicable diseases from Last 3 Months Medical History Medical History Date Comments Myopia DX:Myopia HIV infection (CMS/HCC V24, CMS/HCC V28) DX:HIV infection ([facility]) Family History Medical History Relation Name [...] Procedure Name Priority Date/Time Associated Diagnosis Comments [id number], RSV, FLU A AND B QUALITATIVE RT-PCR, [...] diseases from Last 3 Months Results * [id number], RSV, Influenza A and B qualitative RT-PCR (06/13/2025 3:35 PM EDT) SARS COV-2 Not Detected Not Detected LAB MOLECULAR DIAGNOSTICS METHOD 06/14/2025 2:20 PM EDT [facility] Comment: Disclaimer: The manner in which this information is used to guide patient care is the responsibility of the healthcare provider. Testing was performed using the [employer] m SARS-CoV-2 test. This test has been [...] for Healthcare Providers can be found at: https://www.fda.gov/media/171530/download Fact sheet for Patients can be found at: https://www.fda.gov/media/581659/download Influenza A PCR Not Detected Not Detected LAB MOLECULAR DIAGNOSTICS METHOD 06/14/2025 2:20 PM EDT [facility] Influenza B PCR Not Detected Not Detected LAB MOLECULAR DIAGNOSTICS METHOD 06/14/2025 2:20 PM EDT [facility] RSV PCR Not Detected Not Detected LAB MOLECULAR DIAGNOSTICS METHOD 06/14/2025 2:20 PM EDT [facility] Swab Nasopharyngeal structure / Unknown 06/13/2025 3:35 PM EDT 06/13/2025 6:58 PM EDT Gissel Vasquez MD LAB MICROBIOLOGY - GENERA L ORDERABLES Final Result Performing Organization Address [facility]/ZIP Co de Phone Number [facility] [address] [place] [address], [place] [phone] * Chlamydia trachomatis and Neisseria gonorrhoeae molecular study (06/13/2025 3:35 PM EDT) Only the most recent of3 resultswithin the time period is included. Neisseria gonorrhoeae PCR Negative Negative LAB MOLECULAR DIAGNOSTICS METHOD 06/14/2025 3:09 PM EDT [facility] Chlamydia trachomatis PCR Negative Negative LAB MOLECULAR DIAGNOSTICS METHOD 06/14/2025 3:09 PM EDT [facility] Urine Urine specimen from urethra / Unknown 06/13/2025 3:35 PM EDT 06/13/2025 6:58 PM EDT Gissel Vasquez MD LAB MICROBIOLOGY - GENERA L ORDERABLES Final Result Performing Organization Address [facility] [[email or web address]] Co de Phone Number [facility] [address] [place] [address], [place] [phone] from Last 3 Months Insurance [facility] Member Subscriber Plan / Payer (Ef fective 2022-Present) Name:DAVID HEWITT Relation to Subscriber:Child Name:JONY HEWITT Date of :1967 Address: [address] [place] [id number] Payer ID:[id number] Type:Not on file Address: [address] [place] [address] MEDICA[place] - [place] Care Teams Machine Operator Farmworker Relationship Specialty Start Date End Date Dominik Moses MD [address] [facility] [address] [place], [place] PCP - General Pediatrics 08/27/21
--- OUTSIDE RECORDS SUMMARY | 2025-08-05 12:29 | XMS_ITS | Clinical Summary ---
Author Organization [facility] Address [address] [place] [address] Phone Care Team Providers Care Ore Bridge Operator Name Role Phone Blanco Webster MD Primary Care Provider Social History Tobacco Use Types Packs/Day Years [...] 19+ 3-dose series) 2021 Influenza Vaccines (#1) 2025 COVID-19 Vaccine (1 - 2023-2 5 season) 2025 HIB Vaccines Aged Out No longer [...] age to complete this topic Care Teams Ore Bridge Operator Relationship Specialty Start Date End Date Blanco Webster MD [facility] [facility] [place] [address] PCP - General 03/21/18
--- OUTSIDE RECORDS SUMMARY | 2025-08-05 12:29 | XMS_ITS | Encounter Summary ---
Author Organization [facility] Address [address] [place] [address] Phone Care Team Providers Care Retail Management Trainee Name Role Phone Blanco Webster MD Primary Care Provider [phone] Encounter Details Date Type Department Care Team (Late st Contact Info) Description 04/18/2013 Documentation [facility] Family Medicine [address] [place], [place] [id number] Family Medicine, Physician [address] [place] [address] Social History Tobacco Use Types Packs/Day Years [...] on filedocumented in this encounter Care Teams Retail Management Trainee Relationship Specialty Start Date End Date Blanco Webster MD [address] [place] [address] [place] [address] PCP - General 03/21/18 documented as of this encounter
== END 2025-08-05 11:15 | disposition home or self-care (01) ==
LOC: HO.HOP 10:17
PROVIDERS: Visit Provider Counselor Mental Health
DX: F41.1 Generalized anxiety disorder (principal); F33.1 Major depressive disorder, recurrent, moderate; F43.9 Reaction to severe stress, unspecified
CPT/HCPCS: 90837

== ENCOUNTER 2025-08-12 14:07 | Outpatient (AMB) | payer BC, MEDICAID, SELFPAY ==
--- NOTE | 2025-08-12 14:00 | A.OFFWM_ITS ---
Intake Intake Visit Reasons: VIDEO OP Therapy Allergies ciclopirox Allergy (Intermediate, Verified 10/27/24 10:56) Rash gluten Adverse Reaction (Mild, Verified 10/27/24 16:52) Itching lactose Adverse Reaction (Mild, Verified 10/27/24 16:52) Itching PFSH Medical History Chronic pelvic pain in male Cyst of epididymis Testicular pain, left Scrotal pain Trauma and stressor-related disorder Major depressive disorder, recurrent episode Generalized anxiety disorder HIV (human immunodeficiency virus infection) Social History Comment: Alcohol occasional Substance Use Type: Marijuana Sexual orientation: Lesbian/Saenz/Homosexual Gender identity: Male Behavioral Health Assessment Weight Management Therapy Therapy Notes Details Subjective: The patient reports feeling slightly better today, noting that his pain has improved over the past two days. He was able to go out, which he identifies as a positive step. However, he expresses ongoing anxiety about his well-being, sharing that when he feels better, he also worries that the improvement will not last. This anticipation of relapse contributes to underlying nervousness and difficulty fully enjoying periods of relief. Objective: The patient attended a follow-up session via Telehealth, appearing fidgety but with good mood and energy. During the session, we processed recent events involving a friend and explored changes in his interpersonal relationships. The patient reflected on his emotional responses during periods of desperation and discussed strategies to remain grounded during distress. Cognitive distortions were identified, and interventions focused on reframing negative thinking patterns. The concept of self-fulfilling prophecy was introduced and discussed, with examples relevant to the patient?s experiences. The patient was advised to begin using a pain and symptom tracker to monitor fluctuations and identify potential triggers or patterns. Supportive counseling and psychoeducation were provided throughout the session. Assessment/Response: The patient is showing some improvement in pain and mood, with increased engagement in daily activities. He demonstrates insight into his emotional responses and is receptive to cognitive restructuring techniques. * Mental status: The patient appeared fidgety but displayed a good mood and energy level during the session. Thought processes were logical and coherent. * Risk reported/identified: No suicidal or homicidal ideation reported. No acute safety concerns identified. Assessment & Plan Assessment & Plan (1) Generalized anxiety disorder: Code(s): F41.1 - Generalized anxiety disorder (2) Major depressive disorder, recurrent episode: Code(s): F33.9 - Major depressive disorder, recurrent, unspecified Qualifiers: Major depression episode severity: moderate Qualified Code(s): F33.1 - Major depressive disorder, recurrent, moderate (3) Trauma and stressor-related disorder: Code(s): F43.9 - Reaction to severe stress, unspecified Plan Continue weekly psychotherapy sessions to support ongoing progress, reinforce cognitive restructuring, and monitor pain and mood fluctuations. Patient will begin tracking pain and symptoms daily. Next appointment scheduled for 08/20/25 at 1:00 AM via video. Patient encouraged to reach out if symptoms worsen or additional support is needed before the next session. Telehealth Telehealth Telehealth Platform: [employer] Location of provider rendering services: other (Home office. [place], [place]) Location of patient: address on file Patient Identification confirmed using: Name, : Yes Telehealth method: video Patient verbally consented to treatment: Yes Patient verbally consented to billing insurance company: Yes Patient informed of any privacy concerns related to visit: Yes Minutes spent on Phone/Video with Pt.: 60 [place] [address] Tele Psytx >53 mins Patient Type Established Diagnoses Generalized anxiety disorder F41.1 Moderate episode of recurrent major depressive disorder F33.1 Major depression episode severity: moderate Trauma and stressor-related disorder F43.9 Time Spent (min) 60
--- OUTSIDE RECORDS SUMMARY | 2025-08-12 15:29 | XMS_ITS | Encounter Summary ---
Author Organization [facility] Address [address] [place] [address] Care Team Providers Care Burlap Roll Coverer Name Role Phone Dominik Moses MD Primary Care Provider [phone] Encounter Details Date Type Department Care Team (Late st Contact Info) Description 10/18/2024 Lab Requisition [facility] - Main Lab [address] [place] [address] Gissel Vasquez MD [address] [place] [address] Unspecified conjunctivitis Social History Tobacco Use Types [...] No pathogens isolated. 10/21/2024 10:51 AM EST [facility] Gram Stain Result No polymorphonuclear leukocytes, No epithelial cells, and No organisms noted 10/21/2024 10:[address] [facility] Swab 10/18/2024 10/18/2024 8:0 7 PM EST us Gissel Vasquez MD LAB MICROBIOLOGY - GENERA L ORDERABLES Final Result [facility] [address] [place] [address], documented in this encounter Visit Diagnoses Diagnosis Unspecified conjunctivitis documented in this encounter Additional Health Concerns Infection Onset Date Last Indicated Resolved Time Respiratory Rule-Out 06/13/2025 06/13/2025 025 2:20 PM EDT documented as of this encounter Care Teams Burlap Roll Coverer Relationship Specialty Start Date End Date Dominik Moses MD [address] [facility] [address] [place], [place] PCP - General Pediatrics 08/27/21 documented as of this encounter
--- OUTSIDE RECORDS SUMMARY | 2025-08-12 15:29 | XMS_ITS | Encounter Summary ---
Author Organization [facility] Address [address] [place] [address] Care Team Providers Care Traveling Plant Operator Name Role Phone Dominik Moses MD Primary Care Provider Encounter Details Date Type Department Care Team (Latest Contact Info) Description 12/11/[address] [facility] - Main Lab [address] [place] [address] Gissel Vasquez MD [address] [place] [address] Contact with and (suspected) exposure to infections [...] of transmission Human immunodeficiency virus (HIV) disease ([facility]) URINALYSIS WITH REFLEX MICROSCOPIC Routine 12/11/2024 12:00 AM EST Contact with and (suspected) exposure to infections with a predominantly sexual mode of transmission Human immunodeficiency virus (HIV) disease ([facility]) CHLAMYDIA TRACHOMATIS AND NEISSERIA GONORRHOEAE PCR Routine 12/11/2024 12:00 AM EST Contact with and (suspected) exposure to infections with a predominantly sexual mode of transmission Human immunodeficiency virus (HIV) disease ([facility]) CHLAMYDIA TRACHOMATIS AND NEISSERIA GONORRHOEAE PCR Routine 12/11/2024 12:00 AM EST Contact with and (suspected) exposure to infections with a predominantly sexual mode of transmission Human immunodeficiency virus (HIV) disease ([facility]) CHLAMYDIA TRACHOMATIS AND NEISSERIA GONORRHOEAE PCR Routine 12/11/2024 12:00 AM EST Contact with and (suspected) exposure to infections with a predominantly sexual mode of transmission Human immunodeficiency virus (HIV) disease ([facility]) CULTURE WOUND DEEP Routine 12/11/2024 12 :00 AM EST Contact with and (suspected) exposure to infections with a predominantly sexual mode of transmission Human immunodeficiency virus (HIV) disease ([facility]) documented in this encounter Results * (ABNORMAL) Urinalysis with reflex microscopic (12/11/2024 12:00 AM EST) Specific [place] Urine 1.026 1.003 - 1.030 LAB URINALYSIS - AUTOMATED METHOD 12/11/2024 7:38 PM [facility] pH, Urine 5.5 5.0 - 8.0 pH LAB URINALYSIS - AUTOMATED METHOD 12/11/2024 7:38 PM [facility] Leukocytes, Urine Trace(A) Negative LAB URINALYSIS - AUTOMATED METHOD 12/11/2024 7:38 PM [facility] Nitrite, Urine Negative Negative LAB URINALYSIS - AUTOMATED METHOD 12/11/2024 7:38 PM [facility] Protein, Urine Trace <=Trace mg/dL LAB URINALYSIS - AUTOMATED METHOD 12/11/2024 7:38 PM [facility] Glucose, Urine Negative Negative mg/dL LAB URINALYSIS - AUTOMATED METHOD 12/11/2024 7:38 PM [facility] Ketones, Urine 15(A) Negative mg/dL LAB URINALYSIS - AUTOMATED METHOD 12/11/2024 7:38 PM [facility] Urobilinogen, Urine 1.0 0.2 - 1.0 mg/dL LAB URINALYSIS - AUTOMATED METHOD 12/11/2024 7:38 PM [facility] Bilirubin, Urine Negative Negative LAB URINALYSIS - AUTOMATED METHOD 12/11/2024 7:38 PM [facility] Blood, Urine Negative Negative LAB URINALYSIS - AUTOMATED METHOD 12/11/2024 7:38 PM [facility] RBC, Urine 4.7(H) 0 - 4 /HPF LAB URINALYSIS - AUTOMATED METHOD 12/11/2024 7:38 PM [facility] WBC, Urine 0.0 0 - 4 /HPF LAB URINALYSIS - AUTOMATED METHOD 12/11/2024 7:38 PM [facility] Squamous Epithelial, Urine 3 0 - 60 /LPF LAB URINALYSIS - AUTOMATED METHOD 12/11/2024 7:38 PM [facility] Bacteria, Urine Negative Negative /HPF LAB URINALYSIS - AUTOMATED METHOD 12/11/2024 7:38 PM [facility] Hyaline Casts, Urine 0.0 0 - 3 /LPF LAB URINALYSIS - AUTOMATED METHOD 12/11/2024 7:38 PM [facility] Urine Urine specimen obtained by clean catch procedure / Unknown 12/11/2024 12/11/2024 7:25 PM EST us Gissel Vasquez MD LAB URINE ORDERABLES Mohini caraballo Result [facility] [address] [place] [address], [place] [phone] * Chlamydia trachomatis and Neisseria gonorrhoeae molecular study (12/11/2024 12:00 AM EST) Neisseria gonorrhoeae PCR Negative Negative LAB MOLECULAR DIAGNOSTICS METHOD 05/26/2025 1:56 PM EDT [facility] Comment: This specimen type has not been evaluated for this method. Interpret results with caution. RECTUM Chlamydia trachomatis PCR Negative Negative LAB MOLECULAR DIAGNOSTICS METHOD 05/26/2025 1:56 PM EDT [facility] Comment: This specimen type has not been evaluated for this method. Interpret results with caution. RECTUM Swab Rectum structure / Unknown 12/11/2024 12/11/2024 7:25 PM EST us Gissel Vasquez MD LAB MICROBIOLOGY - GENERA L ORDERABLES Edited Result - Final Performing Organization Address [facility]/ZIP Co de Phone Number [facility] [address] [place] [address], * Chlamydia trachomatis and Neisseria gonorrhoeae molecular study (12/11/2024 12:00 AM EST) [facility] Neisseria gonorrhoeae PCR Negative Negative LAB MOLECULAR DIAGNOSTICS METHOD 05/27/2025 12:31 PM EDT [facility] Comment: This specimen type has not been evaluated for this method. Interpret results with caution. THROAT Chlamydia trachomatis PCR Negative Negative LAB MOLECULAR DIAGNOSTICS METHOD 05/27/2025 12:31 PM EDT [facility] Comment: This specimen type has not been evaluated for this method. Interpret results with caution. THROAT Swab Structure of anterior region of neck / Unknown 12/11/2024 12/11/2024 7:25 PM EST us Gissel Vasquez MD LAB MICROBIOLOGY - GENERA L ORDERABLES Edited Result - Final Performing Organization Address [facility]/ZIP Co de Phone Number [facility] [address] [place] [address], * Chlamydia trachomatis and Neisseria gonorrhoeae molecular study (12/11/2024 12:00 AM EST) Neisseria gonorrhoeae PCR Negative Negative LAB MOLECULAR DIAGNOSTICS METHOD 12/12/2024 9:29 AM EST [facility] Chlamydia trachomatis PCR Negative Negative LAB MOLECULAR DIAGNOSTICS METHOD 12/12/2024 9:29 AM EST [facility] Urine Urine specimen from urethra / Unknown 12/11/2024 12/11/2024 7:25 PM EST us Gissel Vasquez MD LAB MICROBIOLOGY - GENERA L ORDERABLES Final Result [facility] [address] [place] [address], * (ABNORMAL) Culture wound deep (12/11/2024 12:00 AM EST) Culture, Wound Few Staphylococcus epidermidis(A) MARYAN 12/15/2024 12:33 PM [facility] Comment: The organism value for this result has been updated. These results have been appended to the previously preliminary verified report. Edited result: Previously reported as Gram Positive Cocci on 12/15/2024 at 1224 EST. Culture, Wound Few Staphylococcus epidermidis(A) MARYAN 12/15/2024 12:33 PM EST [facility] Comment: The organism value for this result has been updated. These results have been appended to the previously preliminary verified report. Edited result: Previously reported as Gram Positive Cocci on 12/15/2024 at 1224 EST. Gram Stain Result No polymorphonuclear leukocytes, No epithelial cells, and No organisms noted 12/15/2024 12:33 PM [facility] Swab Structure of left foot [...] MICROBIOLOGY - GENERA L ORDERABLES Final Result [facility] [address] [place] [address], documented in this encounter Visit Diagnoses Diagnosis Contact with and (suspected) exposure to infections with a predominantly sexual mode of transmission Human immunodeficiency virus (HIV) disease ([facility] V24, [facility] V28) Human immunodeficiency virus [HIV] disease documented in this encounter Additional Health Concerns Infection Onset Date Last Indicated Resolved Time Respiratory Rule-Out 06/13/2025 06/13/2025 025 2:20 PM EDT documented as of this encounter Care Teams Traveling Plant Operator Relationship Specialty Start Date End Date Dominik Moses MD [address] [facility] [address] [place], [place] PCP - General Pediatrics 08/27/21 documented as of this encounter
--- OUTSIDE RECORDS SUMMARY | 2025-08-12 15:29 | XMS_ITS | Encounter Summary ---
Author Organization [facility] Address [address] [place] [address] Care Team Providers Care Senior C Web Developer Name Role Phone Dominik Moses MD Primary Care Provider [phone] Encounter Details Date Type Department Care Team (Late st Contact Info) Description 06/13/[address] [facility] - Main Lab [address] [place] [address] Gissel Vasquez MD [address] [place] [address] Encounter for gynecological examination (general) (routine) without [...] Procedure Name Priority Date/Time Associated Diagnosis Comments [id number], RSV, FLU A AND B QUALITATIVE RT-PCR, [...] diseases documented in this encounter Results * [id number], RSV, Influenza A and B qualitative RT-PCR (06/13/2025 3:35 PM EDT) [facility] SARS COV-2 Not Detected Not Detected LAB MOLECULAR DIAGNOSTICS METHOD 06/14/2025 2:20 PM EDT [facility] Comment: Disclaimer: The manner in which this information is used to guide patient care is the responsibility of the healthcare provider. Testing was performed using the [employer] m SARS-CoV-2 test. This test has [...] for Healthcare Providers can be found at: https://www.fda.gov/media/013960/download Fact sheet for Patients can be found at: https://www.fda.gov/media/479136/download Influenza A PCR Not Detected Not Detected LAB MOLECULAR DIAGNOSTICS METHOD 06/14/2025 2:20 PM EDT [facility] Influenza B PCR Not Detected Not Detected LAB MOLECULAR DIAGNOSTICS METHOD 06/14/2025 2:20 PM EDT [facility] RSV PCR Not Detected Not Detected LAB MOLECULAR DIAGNOSTICS METHOD 06/14/2025 2:20 PM EDT [facility] Swab Nasopharyngeal structure / Unknown 06/13/2025 3:35 PM EDT 06/13/2025 6:58 PM EDT us Gissel Vasquez MD LAB MICROBIOLOGY - GENERA L ORDERABLES Final Result Performing Organization Address City/[facility]/ZIP Co de Phone Number [facility] [address] [place] [address], [place] [phone] * Chlamydia trachomatis and Neisseria gonorrhoeae molecular study (06/13/2025 3:35 PM EDT) Neisseria gonorrhoeae PCR Negative Negative LAB MOLECULAR DIAGNOSTICS METHOD 06/14/2025 3:09 PM EDT [facility] Chlamydia trachomatis PCR Negative Negative LAB MOLECULAR DIAGNOSTICS METHOD 06/14/2025 3:09 PM EDT [facility] Urine Urine specimen from urethra / Unknown 06/13/2025 3:35 PM EDT 06/13/2025 6:58 PM EDT us Gissel Vasquez MD LAB MICROBIOLOGY - GENERA L ORDERABLES Final Result Performing Organization Address City/[facility]/ZIP Co de Phone Number [facility] [address] [place] [address], [place] [phone] * Chlamydia trachomatis and Neisseria gonorrhoeae molecular study (06/13/2025 3:35 PM EDT) Neisseria gonorrhoeae PCR Negative Negative LAB MOLECULAR DIAGNOSTICS METHOD 06/14/2025 10:59 AM EDT [facility] Chlamydia trachomatis PCR Negative Negative LAB MOLECULAR DIAGNOSTICS METHOD 06/14/2025 10:59 AM EDT [facility] Swab Topography unknown / Unknown 06/13/2025 3:35 PM EDT 06/13/2025 6:58 PM EDT Gissel Vasquez MD LAB MICROBIOLOGY - GENERA L ORDERABLES Final Result Performing Organization Address City/[facility]/ZIP Co de Phone Number [facility] [address] [place] [address], [place] [phone] * Chlamydia trachomatis and Neisseria gonorrhoeae molecular study (06/13/2025 3:35 PM EDT) Neisseria gonorrhoeae PCR Negative Negative LAB MOLECULAR DIAGNOSTICS METHOD 06/14/2025 10:59 AM EDT [facility] Chlamydia trachomatis PCR Negative Negative LAB MOLECULAR DIAGNOSTICS METHOD 06/14/2025 10:59 AM EDT [facility] Swab Rectum structure / Unknown 06/13/2025 3:35 PM EDT 06/13/2025 6:58 PM EDT Gissel Vasquez MD LAB MICROBIOLOGY - GENERA L ORDERABLES Final Result Performing Organization Address [facility] Co de Phone Number [facility] [address] [place] [address], [place] [phone] documented in this encounter Visit Diagnoses Diagnosis Encounter for gynecological examination (general) (routine) without abnormal findings Contact with and (suspected) exposure to other viral communicable diseases documented in this encounter Additional Health Concerns Infection Onset Date Last Indicated Resolved Time Respiratory Rule-Out 06/13/2025 06/13/2025 025 2:20 PM EDT documented as of this encounter Care Teams Senior C Web Developer Relationship Specialty Start Date End Date Dominik Moses MD [address] [facility] [address] [place], [place] PCP - General Pediatrics 08/27/21 documented as of this encounter
--- OUTSIDE RECORDS SUMMARY | 2025-08-12 15:29 | XMS_ITS | Encounter Summary ---
Author Organization [facility] Address [address] [place] [address] Phone Care Team Providers Care Ecmo Specialist Name Role Phone Blanco Webster MD Primary Care Provider [phone] Encounter Details Date Type Department Care Team (Late st Contact Info) Description 04/18/2013 Documentation [facility] Family Medicine [address] [place], [place] [id number] Family Medicine, Physician [address] [place] [address] Social History Tobacco Use Types Packs/Day Years [...] on filedocumented in this encounter Care Teams Ecmo Specialist Relationship Specialty Start Date End Date Blanco Webster MD [address] [place] [address] [place] [address] PCP - General 03/21/18 documented as of this encounter
--- OUTSIDE RECORDS SUMMARY | 2025-08-12 15:29 | XMS_ITS | Clinical Summary ---
Author Organization [facility] Address [address] [place] [address] Phone Care Team Providers Care Hard Rock Miner Name Role Phone Blanco Webster MD Primary Care Provider [phone] Social History Tobacco Use Types Packs/Day Years [...] Vaccines (#1) 2025 COVID-19 Vaccine (1 - 2024-2 6 season) 2025 HIB Vaccines Aged Out No [...] age to complete this topic Care Teams Hard Rock Miner Relationship Specialty Start Date End Date Blanco Webster MD [facility] [facility] [place] [address] PCP - General 03/21/18
--- OUTSIDE RECORDS SUMMARY | 2025-08-12 15:29 | XMS_ITS | Clinical Summary ---
Author Organization [facility] Address [address] [place] [address] Phone Care Team Providers Care Level Vial Setter Name Role Phone Jose Guadalupe Vargas MD Primary Care Provider [phone] Jose Guadalupe Vargas MD Unavailable [phone] Social History Tobacco Use Types Packs/Day Years Used Date Smoking Tobacco: Never Assessed Sex and Gender Information Value Date Recorded Sex Assigned at Not on file Legal Sex Male 7:37 PM EDT Gender Identity Not on file Sexual Orientation Not on file Plan of Treatment Not on file Care Teams Level Vial Setter Relationship Specialty Start Date End Date Jose Guadalupe Vargas MD [address] [place] [address] PCP - General 10/01/08 Jose Guadalupe Vargas MD [address] [place] [address] PCP - Insurance PCP 10/01/08
--- OUTSIDE RECORDS SUMMARY | 2025-08-12 15:29 | XMS_ITS | Clinical Summary ---
Author Organization [address] [facility] Address [address] [place] [address] Phone Care Team Providers Care Blood And Plasma Laboratory Assistant Name Role Phone Dominik Moses MD Primary Care Provider Encounters Date Type Department Care Team Description 06/13/2025 Lab Requisition [facility] - Main Lab [address] [place] [address] Gissel Vasquez MD Encounter for gynecological examination (general) (routine) without abnormal findings; Contact with and (suspected) exposure to other viral communicable diseases from Last 3 Months Medical History Medical History Date Comments Myopia DX:Myopia HIV infection (CMS/HCC V24, CMS/HCC V28) DX:HIV infection (FORMERLY [facility]) Family History Medical History Relation Name Comments [...] Depression Screening 11/13/2024 Influenza Vaccine (#1) 2025 RSV Immunization Adult Patie nts (1 - 1-dose 75+ series) 2077 HIB Vaccines Aged Out No longer eligi [...] Procedure Name Priority Date/Time Associated Diagnosis Comments [id number], RSV, FLU A AND B QUALITATIVE RT-PCR, [...] diseases from Last 3 Months Results * [id number], RSV, Influenza A and B qualitative RT-PCR (06/13/2025 3:35 PM EDT) Pathologist [facility] SARS COV-2 Not Detected Not Detected LAB MOLECULAR DIAGNOSTICS METHOD 06/14/2025 2:20 PM EDT [facility] Comment: Disclaimer: The manner in which this information is used to guide patient care is the responsibility of the healthcare provider. Testing was performed using the IXI-Play Alinity m SARS-CoV-2 test. This test has [...] for Healthcare Providers can be found at: https://www.fda.gov/media/588733/download Fact sheet for Patients can be found at: https://www.fda.gov/media/175407/download Influenza A PCR Not Detected Not Detected [...] L ORDERABLES Final Result Performing Organization Address [facility] Co de Phone Number [facility] [address] [place] [address], * Chlamydia trachomatis and Neisseria gonorrhoeae molecular [...] L ORDERABLES Final Result Performing Organization Address [facility] Co de Phone Number [facility] [address] [place] [address], from Last 3 Mon[place] [address] [facility] MEDICAID - [place] Care Teams Blood And Plasma Laboratory Assistant Relationship Specialty Start Date End Date Dominik Moses MD [address] [facility] [address] [place], [place] PCP - General Pediatrics 08/27/21
--- OUTSIDE RECORDS SUMMARY | 2025-08-12 15:29 | XMS_ITS | Encounter Summary ---
Author Organization [facility] Address [address] [place] [address] Care Team Providers Care Hammer Heater Name Role Phone Dominik Moses MD Primary Care Provider Encounter Details Date Type Department Care Team (Late st Contact Info) Description 10/18/2024 Lab Requisition [facility] - Main Lab [address] [place] [address] Gissel Vasquez MD [address] [place] [address] Erythema intertrigo Social History Tobacco Use Types [...] significant pathogens noted. 10/21/2024 10:53 AM EST [facility] Swab Urethral structure / Unknown 10/18/2024 10/18/2024 8:11 PM EST us Gissel Vasquez MD LAB MICROBIOLOGY - GENERA L ORDERABLES Final Result [facility] ([facility] [address] [place] [address], documented in this encounter Visit Diagnoses Diagnosis Erythema intertrigo Other specified erythematous condition documented in this encounter Additional Health Concerns Infection Onset Date Last Indicated Resolved Time Respiratory Rule-Out 06/13/2025 06/13/2025 025 2:20 PM EDT documented as of this encounter Care Teams Hammer Heater Relationship Specialty Start Date End Date Dominik Moses MD [address] [facility] [address] [place], [place] PCP - General Pediatrics 08/27/21 documented as of this encounter
== END 2025-08-12 14:36 | disposition home or self-care (01) ==
LOC: HO.HOP 14:07
PROVIDERS: Visit Provider Counselor Mental Health
DX: F41.1 Generalized anxiety disorder (principal); F33.1 Major depressive disorder, recurrent, moderate; F43.9 Reaction to severe stress, unspecified
CPT/HCPCS: 90837

== ENCOUNTER 2025-08-20 10:12 | Outpatient (AMB) | payer BC, MEDICAID, SELFPAY ==
--- NOTE | 2025-08-20 10:05 | A.OFFWM_ITS ---
Intake Intake Visit Reasons: VIDEO OP Therapy Allergies ciclopirox Allergy (Intermediate, Verified 10/27/24 10:56) Rash gluten Adverse Reaction (Mild, Verified 10/27/24 16:52) Itching lactose Adverse Reaction (Mild, Verified 10/27/24 16:52) Itching PFSH Medical History Chronic pelvic pain in male Cyst of epididymis Testicular pain, left Scrotal pain Trauma and stressor-related disorder Major depressive disorder, recurrent episode Generalized anxiety disorder HIV (human immunodeficiency virus infection) Social History Comment: Alcohol occasional Substance Use Type: Marijuana Sexual orientation: Lesbian/Saenz/Homosexual Gender identity: Male Behavioral Health Assessment Weight Management Therapy Therapy Notes Details Subjective: The patient presents today feeling anxious and panicked after learning that his Dupixent prescription was denied by insurance. He describes Dupixent as one of the most effective medications for managing his condition, and its loss has triggered significant distress. The patient reports feeling in a persistent ?fight or flight? state, which recently led to an argument with his mother following a hurtful comment. He notes that after expressing his frustration, the situation was turned around on him, leaving him feeling blamed and misunderstood. The patient acknowledges that these interpersonal conflicts and medication setbacks are contributing to his emotional volatility. Objective: The patient attended a follow-up session via Telehealth, appearing visibly anxious and distressed. Interventions focused on reframing negative and catastrophic thinking patterns related to both the medication denial and recent family conflict. Together, we developed a coping plan to address acute anxiety and emotional dysregulation, including grounding techniques and self-soothing strategies. Safety concerns were explored, particularly as the patient reports that negative spiraling tends to intensify during periods of high pain or medical setbacks. The patient was encouraged to monitor his emotional state and utilize his coping plan during times of increased distress. Supportive counseling and psychoeducation were provided throughout the session. Assessment/Response: The patient is experiencing heightened anxiety and emotional reactivity in response to medication access issues and family stressors. He demonstrates insight into his triggers and is receptive to cognitive and behavioral interventions. * Mental status: The patient appeared anxious and restless, with mood described as panicked and affect congruent. Thought processes were logical, though at times preoccupied with recent stressors. No evidence of psychosis or cognitive impairment. * Risk reported/identified: The patient denied suicidal or homicidal ideation. No acute safety concerns identified at this time, but will continue to monitor closely given history of negative spiraling during high pain episodes. Assessment & Plan Assessment & Plan (1) Generalized anxiety disorder: Code(s): F41.1 - Generalized anxiety disorder (2) Major depressive disorder, recurrent episode: Code(s): F33.9 - Major depressive disorder, recurrent, unspecified Qualifiers: Major depression episode severity: moderate Qualified Code(s): F33.1 - Major depressive disorder, recurrent, moderate (3) Trauma and stressor-related disorder: Code(s): F43.9 - Reaction to severe stress, unspecified Plan Continue weekly psychotherapy sessions to provide ongoing support, reinforce coping strategies, and monitor emotional and physical health. Patient will implement the coping plan and track emotional responses to stressors. Next appointment scheduled for 08/26/2025 at 10:00 AM via Telehealth. Patient encouraged to reach out if symptoms escalate or additional support is needed before the next session. Telehealth Telehealth Telehealth Platform: [employer] Location of provider rendering services: other (Home office. [place], [place]) Location of patient: address on file Patient Identification confirmed using: Name, : Yes Telehealth method: video Patient verbally consented to treatment: Yes Patient verbally consented to billing insurance company: Yes Patient informed of any privacy concerns related to visit: Yes Minutes spent on Phone/Video with Pt.: 55 [place] [id number] Tele Psytx >53 mins Patient Type Established Diagnoses Generalized anxiety disorder F41.1 Moderate episode of recurrent major depressive disorder F33.1 Major depression episode severity: moderate Trauma and stressor-related disorder F43.9 Time Spent (min) 55
== END 2025-08-20 11:32 | disposition home or self-care (01) ==
LOC: HO.HOP 10:12
PROVIDERS: Visit Provider Counselor Mental Health
DX: F41.1 Generalized anxiety disorder (principal); F33.1 Major depressive disorder, recurrent, moderate; F43.9 Reaction to severe stress, unspecified
CPT/HCPCS: 90837

== ENCOUNTER 2025-08-26 10:13 | Outpatient (AMB) | payer BC, MEDICAID, SELFPAY ==
--- OUTSIDE RECORDS SUMMARY | 2025-08-26 04:53 | XMS_ITS ---
Author Organization [facility] Allergies No Known Allergies Medications Current Medications Medication Directions Start Date Discontinues Da te pregabalin 200 mg caps 1 cap orally 2 times per day 06-09-09 Dupixent Pen 200 mg/1.14 mL pen injectors 200 milligrams subcutaneously every 2 weeks 2025-08-21 Opzelura 1.5% cream 1 application topica lly 2 times per day 2025-08-21 ketamine in NaCl, iso-osmotic injection 100 mg/10 mL (10 mg/mL) syringes need dose confirmation 2025-08-[address] tabs 1 oral disinteg rating tablet (ODT) PO qid as needed for nausea and/or vomiting 2025-08-21 Problems Problem Status Assessment and P mark Hyperlipidemia Inactive Neuropathy Active Atopic dermatitis Active History of Procedures Order Codes Created Status No known procedures Results Tests Date Results Flag Units Reference Interval No Results Within Months MENTAL STATUS No information Family History Heart disease Social History Social History Observation Description Dates Observed Smoking Status Unknown if ever smoked Social Data No Known Social Data Immunizations Vaccine Date Status Unknown immunization status 08/26/2025 Comp leted Plan of Treatment Health Screenings Date Goal Action Comments August 21, 2025 Depression screening PHQ-2 Insurance Providers Payer name Policy type / Coverage type Policy ID Covered constitution party ID Policy [facility] O [id number] Self
--- NOTE | 2025-08-26 10:10 | MHC.WMTHER ---
Intake Intake Visit Reasons: VIDEO OP Therapy Allergies ciclopirox Allergy (Intermediate, Verified 10/27/24 10:56) Rash gluten Adverse Reaction (Mild, Verified 10/27/24 16:52) Itching lactose Adverse Reaction (Mild, Verified 10/27/24 16:52) [facility]ching [facility] Medical History Chronic pelvic pain in male Cyst of epididymis Testicular pain, left Scrotal pain Trauma and stressor-related disorder Major depressive disorder, recurrent episode Generalized anxiety disorder HIV (human immunodeficiency virus infection) Social History Comment: Alcohol occasional Substance Use Type: Marijuana Sexual orientation: Lesbian/Saenz/Homosexual Gender identity: Male Behavioral Health Assessment Weight Management Therapy Therapy Notes Details Subjective: The patient reports continued self-advocacy, successfully obtaining a new prescription for Dupixent, which will be covered by insurance for one year. He notes improvement in nausea and states that physical therapy for vertigo has been beneficial. Home life remains stable. However, he expresses ongoing worry and a tendency to overthink, particularly regarding potential issues with his medication delivery (expected tomorrow), as well as concerns about SNAP/benefits and the possibility of a government shutdown. Objective: The patient presented for a follow-up visit via telehealth. During the session, cognitive behavioral therapy (CBT) interventions were utilized to address his anxiety and overthinking. The patient was guided through cognitive restructuring exercises to identify and challenge catastrophic thoughts related to medication and benefits. Behavioral activation strategies were discussed, encouraging engagement in meaningful activities to reduce rumination. The do the opposite technique was practiced, helping the patient to intentionally engage in behaviors contrary to his anxious urges (e.g., focusing on present tasks rather than seeking reassurance or excessive checking). Relaxation techniques, including diaphragmatic breathing and grounding exercises, were introduced to manage acute anxiety symptoms. Psychoeducation was provided regarding the normalcy of anticipatory anxiety and the importance of maintaining routines during periods of uncertainty. Assessment/Response: Mental status: The patient appeared alert and oriented, with appropriate affect and coherent thought processes. Anxiety was present but manageable during the session. No evidence of psychosis or cognitive impairment. Risk reported/identified: he patient denied any suicidal or homicidal ideation, intent, or plan. No acute safety concerns identified. Assessment & Plan Assessment & Plan (1) Generalized anxiety disorder: Code(s): F41.1 - Generalized anxiety disorder (2) Major depressive disorder, recurrent episode: Code(s): F33.9 - Major depressive disorder, recurrent, unspecified Qualifiers: Major depression episode severity: moderate Qualified Code(s): F33.1 - Major depressive disorder, recurrent, moderate (3) Trauma and stressor-related disorder: Code(s): F43.9 - Reaction to severe stress, unspecified Plan Continue with weekly sessions to monitor progress, reinforce CBT skills, and provide ongoing support for anxiety and symptom management Next varsha: 09/05/2025 at 10am, telehealth. [employer] Telehealth Telehealth Platform: [employer] Location of provider rendering services: other (Home office. [place], [place]) Location of patient: address on file Patient Identification confirmed using: Name, : Yes Patient verbally consented to treatment: Yes Patient verbally consented to billing insurance company: Yes Patient informed of any privacy concerns related to visit: Yes Minutes spent on Phone/Video with Pt.: 50 [place] [id number] Tele Psytx 45 mins Patient Type Established Diagnoses Generalized anxiety disorder F41.1 Moderate episode of recurrent major depressive disorder F33.1 Major depression episode severity: moderate Trauma and stressor-related disorder F43.9 Time Spent (min) 50
--- OUTSIDE RECORDS SUMMARY | 2025-08-26 11:53 | XMS_ITS | Data Portability ---
Author Organization [place] [facility], [facility] Address [address] [facility] [address] [place] [address] Care Team Providers Care Tool Grinder Operator Name Role Phone ISABEL TRAN Primary Care Provider ISABEL TRAN Referring Provider [phone] JANES TRAN Primary Care Provider Assessment No [...] Address Organization Details Recorded Time Bilateral tinnitus 82465651736 02 Active 2022 Tinnitus, bilateral ; Note: Date Diagnosed : 04/25/2023 2:02 PM (H93.13) Not Available [facility] 4 03:17:50 Jaw pain 010597196 Active 2022 Jaw pain; Note: Date Diagnosed : 04/25/2023 2:07 PM (R68.84) Not Available [facility] 4 03:17:49 Hypertrop hy of tonsils 16465193 Active 2023 Hypertrop hy of tonsils; Note: Date Diagnosed : 12/11/2023 1:00 PM (J35.1) Not Available [facility] 4 03:17:50 Bleeding from nose 641487443 Active 2023 Epistaxis ; Note: Date Diagnosed : 12/21/2023 1:51 PM (R04.0) Not Available [facility] 4 03:17:49 Chronic disease of tonsils AND/OR adenoids 73327891 Active 2023 Calculus, tonsil; Note: Date Diagnosed : 12/21/2023 1:50 PM (J35.8) Not Available [facility] 4 03:17:50 Hemoptysi s 62406508 Active 2023 Hemoptysi s; Note: Date Diagnosed : 12/22/2023 3:29 PM (R04.2) Not Available [facility] 4 03:17:50 Chronic tonsillit is 08182302 Active 2023 MARCOS SABA MD [address] [place] [address], [place], [address] , [facility] - [facility] 4 11:34:25 Problem Notes None recorded. Medical Equipment None [...] capsule,d elayed release active Medicati on ID: [id number] B rand Name: duloxeti ne Send Method: [...] Updated DateTime 05/17/2024 177.8 cm 25.8 kg/m2 51866.63 g Kasey Farrell [place] [facility] 05/17/2024 13:41:31 Social History None recorded. Functional Status None recorded. Mental Status None recorded. Family History Nothing Reported. Medical History Condition Response Migraines Y Immune System Disorder Y Past Encounters Encounter ID Performer Location Encounter Start Date Encounter Closed Date Diagnosis/Indication Diagnosis SNOMED-CT Code Diagnosis ICD10 Code Diagnosis IMO Codes Diagnosis Note [id number] MARCOS SABA MD [facility] [address] [address] 05/17/2024 13:34:24 05/20/2024 17:12:20 Chronic tonsillitis 79806901 J35.01 23-year-ol d male presents today for [...] ID Guarantor Name 05/24/2024 1 [place] [facility] (O) [id number] Casper Inman [id number] Casper Inman 05/14/2024 2 [place] Casper Inman [id number] Casper Inman Notes Date Note Type Note Provider Name and Address Organization Details Recorded Time 05/17/2024 text/html ROS as noted in the HPI 23-year-old male presents today for follow-up. He has been seen for chronic tonsillitis and hemoptysis. He had a bronchoscopy with Dr. Carr. He was noted to have friable lingual tonsils and the rest of the bronchoscopy was unremarkable. Casper has not had any episodes of bleeding in several weeks. MARCOS SABA MD [address] [place] [address], [phone], [facility] - [facility] 05/18/2024 11:39:09
--- OUTSIDE RECORDS SUMMARY | 2025-08-26 11:53 | XMS_ITS | Encounter Summary ---
Author Organization [facility] Address [address] [place] [address] Care Team Providers Care Child Welfare Consultant Name Role Phone Dominik Moses MD Primary Care Provider Encounter Details Date Type Department Care Team (Late st Contact Info) Description 10/18/[address] [facility] - Main Lab [address] [place] [address] Gissel Vasquez MD [address] [place] [address] Erythema intertrigo Social History Tobacco Use Types [...] significant pathogens noted. 10/21/2024 10:53 AM EST [facility] Swab Urethral structure / Unknown 10/18/2024 10/18/2024 8:11 PM EST us Gissel Vasquez MD LAB MICROBIOLOGY - GENERA L ORDERABLES Final Result [facility] [address] [place] [address], documented in this encounter Visit Diagnoses Diagnosis Erythema intertrigo Other specified erythematous condition documented in this encounter Additional Health Concerns Infection Onset Date Last Indicated Resolved Time Respiratory Rule-Out 06/13/2025 06/13/2025 025 2:20 PM EDT documented as of this encounter Care Teams Child Welfare Consultant Relationship Specialty Start Date End Date Dominik Moses MD [address] [facility] [address] [place], [place] PCP - General Pediatrics 08/27/21 documented as of this encounter
--- OUTSIDE RECORDS SUMMARY | 2025-08-26 11:53 | XMS_ITS | Encounter Summary ---
Author Organization [facility] Address [address] [place] [address] Phone Care Team Providers Care Baton Twirler Name Role Phone Blanco Webster MD Primary Care Provider [phone] Encounter Details Date Type Department Care Team (Late st Contact Info) Description 04/18/2013 Documentation [facility] Family Medicine [address] [place], [place] [phone] Family Medicine, Physician [address] [place] [address] Social History Tobacco Use Types Packs/Day Years [...] on filedocumented in this encounter Care Teams Baton Twirler Relationship Specialty Start Date End Date Blanco Webster MD [address] [place] [address] [place] [address] PCP - General 03/21/18 documented as of this encounter
--- OUTSIDE RECORDS SUMMARY | 2025-08-26 11:53 | XMS_ITS | Clinical Summary ---
Author Organization [address] [facility] Address [address] [place] [address] Phone Care Team Providers Care Clinical Courier Name Role Phone Dominik Moses MD Primary Care Provider [phone] Encounters Date Type Department Care Team Description 06/13/2025 Lab Requisition [facility] - Main Lab [address] [place] [address] Gissel Vasquez MD Encounter for gynecological examination (general) (routine) without abnormal findings; Contact with and (suspected) exposure to other viral communicable diseases from Last 3 Months Medical History Medical History Date Comments Myopia DX:Myopia HIV infection (CMS/HCC V24, CMS/HCC V28) DX:HIV infection ([facility]) Family History Medical History Relation Name Comments [...] Procedure Name Priority Date/Time Associated Diagnosis Comments [id number], RSV, FLU A AND B QUALITATIVE RT-PCR, [...] diseases from Last 3 Months Results * [id number], RSV, Influenza A and B qualitative RT-PCR (06/13/2025 3:35 PM EDT) Pathologist [facility] SARS COV-2 Not Detected Not Detected LAB MOLECULAR DIAGNOSTICS METHOD 06/14/2025 2:20 PM EDT [facility] Comment: Disclaimer: The manner in which this information is used to guide patient care is the responsibility of the healthcare provider. Testing was performed using the [employer] Alinity m SARS-CoV-2 test. This test has [...] for Healthcare Providers can be found at: https://www.fda.gov/media/099260/download Fact sheet for Patients can be found at: https://www.fda.gov/media/259438/download Influenza A PCR Not Detected Not Detected LAB MOLECULAR DIAGNOSTICS METHOD 06/14/2025 2:20 PM EDT [facility] Influenza B PCR Not Detected Not Detected LAB MOLECULAR DIAGNOSTICS METHOD 06/14/2025 2:20 PM EDT [facility] RSV PCR Not Detected Not Detected LAB MOLECULAR DIAGNOSTICS METHOD 06/14/2025 2:20 PM EDT [facility] Swab Nasopharyngeal structure / Unknown 06/13/2025 3:35 PM EDT 06/13/2025 6:58 PM EDT Gissel Vasquez MD LAB MICROBIOLOGY - GENERA L ORDERABLES Final Result Performing Organization Address [facility] Co de Phone Number [facility] [address] [place] [address], * Chlamydia trachomatis and Neisseria gonorrhoeae molecular study (06/13/2025 3:35 PM EDT) Only the most recent of3 resultswithin the time period is included. Neisseria gonorrhoeae PCR Negative Negative LAB MOLECULAR DIAGNOSTICS METHOD 06/14/2025 3:09 PM EDT [facility] Chlamydia trachomatis PCR Negative Negative LAB MOLECULAR DIAGNOSTICS METHOD 06/14/2025 3:09 PM EDT [facility] Urine Urine specimen from urethra / Unknown 06/13/2025 3:35 PM EDT 06/13/2025 6:58 PM EDT Gissel Vasquez MD LAB MICROBIOLOGY - GENERA L ORDERABLES Final Result Performing Organization Address [facility] Co de Phone Number [facility] [address] [place] [address], from Last 3 Mon[place] [address] [facility] MEDICAID - [place] Care Teams Clinical Courier Relationship Specialty Start Date End Date Dominik Moses MD [address] [facility] [address] [place], [place] PCP - General Pediatrics 08/27/21
--- OUTSIDE RECORDS SUMMARY | 2025-08-26 11:53 | XMS_ITS | Encounter Summary ---
Author Organization [facility] Address [address] [place] [address] Care Team Providers Care Crop And Soil Technician Name Role Phone Dominik Moses MD Primary Care Provider [phone] Encounter Details Date Type Department Care Team (Late st Contact Info) Description 10/18/2024 Lab Requisition [facility] - Main Lab [address] [place] [address] Gissel Vasquez MD [address] [place] [address] Unspecified conjunctivitis Social History Tobacco Use Types [...] No pathogens isolated. 10/21/2024 10:51 AM EST [facility] Gram Stain Result No polymorphonuclear leukocytes, No epithelial cells, and No organisms noted 10/21/2024 10:51 AM EST [facility] Swab 10/18/2024 10/18/2024 8:0 7 PM EST us Gissel Vasquez MD LAB MICROBIOLOGY - GENERA L ORDERABLES Final Result [facility] [address] [place] [address], documented in this encounter Visit Diagnoses Diagnosis Unspecified conjunctivitis documented in this encounter Additional Health Concerns Infection Onset Date Last Indicated Resolved Time Respiratory Rule-Out 06/13/2025 06/13/2025 025 2:20 PM EDT documented as of this encounter Care Teams Crop And Soil Technician Relationship Specialty Start Date End Date Dominik Moses MD [address] [facility] [address] [place], [place] PCP - General Pediatrics 08/27/21 documented as of this encounter
--- OUTSIDE RECORDS SUMMARY | 2025-08-26 11:54 | XMS_ITS | Encounter Summary ---
Author Organization [facility] Address [address] [place] [address] Care Team Providers Care Book Repairer Name Role Phone Dominik Moses MD Primary Care Provider [phone] Encounter Details Date Type Department Care Team (Late st Contact Info) Description 06/13/[address] [facility] - Main Lab [address] [place] [address] Gissel Vasquez MD [address] [place] [address] Encounter for gynecological examination (general) (routine) without [...] Procedure Name Priority Date/Time Associated Diagnosis Comments [id number], RSV, FLU A AND B QUALITATIVE RT-PCR, [...] diseases documented in this encounter Results * [id number], RSV, Influenza A and B qualitative RT-PCR (06/13/2025 3:35 PM EDT) [facility] SARS COV-2 Not Detected Not Detected LAB MOLECULAR DIAGNOSTICS METHOD 06/14/2025 2:20 PM EDT [facility] Comment: Disclaimer: The manner in which this information is used to guide patient care is the responsibility of the healthcare provider. Testing was performed using the [employer] Alinity m SARS-CoV-2 test. This test has [...] for Healthcare Providers can be found at: https://www.fda.gov/media/044604/download Fact sheet for Patients can be found at: https://www.fda.gov/media/173408/download Influenza A PCR Not Detected Not Detected [...] L ORDERABLES Final Result Performing Organization Address City/[facility]/ZIP Co de Phone Number [facility] [address] [place] [address], [place] [phone] * Chlamydia trachomatis and Neisseria gonorrhoeae molecular [...] L ORDERABLES Final Result Performing Organization Address City/[facility]/ZIP Co de Phone Number [facility] [address] [place] [address], [place] [phone] * Chlamydia trachomatis and Neisseria gonorrhoeae molecular [...] L ORDERABLES Final Result Performing Organization Address City/[facility]/ZIP Co de Phone Number [facility] [address] [place] [address], [place] [phone] * Chlamydia trachomatis and Neisseria gonorrhoeae molecular [...] L ORDERABLES Final Result Performing Organization Address [facility] Co de Phone Number [facility] [address] [place] [address], [place] [phone] documented in this encounter Visit Diagnoses Diagnosis Encounter for gynecological examination (general) (routine) without abnormal findings Contact with and (suspected) exposure to other viral communicable diseases documented in this encounter Additional Health Concerns Infection Onset Date Last Indicated Resolved Time Respiratory Rule-Out 06/13/2025 06/13/2025 025 2:20 PM EDT documented as of this encounter Care Teams Book Repairer Relationship Specialty Start Date End Date Dominik Moses MD [address] [facility] [address] [place], [place] PCP - General Pediatrics 08/27/21 documented as of this encounter
--- OUTSIDE RECORDS SUMMARY | 2025-08-26 11:54 | XMS_ITS | Clinical Summary ---
Author Organization [facility] Address [address] [place] [address] Phone Care Team Providers Care Director Of It Operations Name Role Phone Blanco Webster MD Primary Care Provider [phone] Social History Tobacco Use Types Packs/Day Years [...] age to complete this topic Care Teams Director Of It Operations Relationship Specialty Start Date End Date Blanco Webster MD [facility] [facility] [place] [address] PCP - General 03/21/18
--- OUTSIDE RECORDS SUMMARY | 2025-08-26 11:54 | XMS_ITS | Clinical Summary ---
Author Organization [facility] Address [address] [place] [address] Phone Care Team Providers Care Shactor Helper Name Role Phone Jose Guadalupe Vargas MD Primary Care Provider [phone] Jose Guadalupe Vargas MD Unavailable [phone] Social History Tobacco Use Types Packs/Day Years Used Date Smoking Tobacco: Never Assessed Sex and Gender Information Value Date Recorded Sex Assigned at Not on file Legal Sex Male 7:37 PM EDT Gender Identity Not on file Sexual Orientation Not on file Plan of Treatment Not on file Care Teams Shactor Helper Relationship Specialty Start Date End Date Jose Guadalupe Vargas MD [address] [place] [address] PCP - General 10/01/08 Jose Guadalupe Vargas MD [address] [place] [address] PCP - Insurance PCP 10/01/08
--- OUTSIDE RECORDS SUMMARY | 2025-08-26 11:54 | XMS_ITS | Encounter Summary ---
Author Organization [facility] Address [address] [place] [address] Care Team Providers Care Mental Health Orderly Name Role Phone Dominik Moses MD Primary Care Provider Encounter Details Date Type Department Care Team (Latest Contact Info) Description 12/11/2024 Lab Requisition [facility] - Main Lab [address] [place] [address] Gissel Vasquez MD [address] [place] [address] Contact with and (suspected) exposure to infections [...] of transmission Human immunodeficiency virus (HIV) disease ([facility]) URINALYSIS WITH REFLEX MICROSCOPIC Routine 12/11/2024 12:00 AM EST Contact with and (suspected) exposure to infections with a predominantly sexual mode of transmission Human immunodeficiency virus (HIV) disease ([facility]/HCC) CHLAMYDIA TRACHOMATIS AND NEISSERIA GONORRHOEAE PCR Routine 12/11/2024 12:00 AM EST Contact with and (suspected) exposure to infections with a predominantly sexual mode of transmission Human immunodeficiency virus (HIV) disease ([facility]/HCC) CHLAMYDIA TRACHOMATIS AND NEISSERIA GONORRHOEAE PCR Routine 12/11/2024 12:00 AM EST Contact with and (suspected) exposure to infections with a predominantly sexual mode of transmission Human immunodeficiency virus (HIV) disease ([facility]/HCC) CHLAMYDIA TRACHOMATIS AND NEISSERIA GONORRHOEAE PCR Routine 12/11/2024 12:00 AM EST Contact with and (suspected) exposure to infections with a predominantly sexual mode of transmission Human immunodeficiency virus (HIV) disease ([facility]/HCC) CULTURE WOUND DEEP Routine 12/11/2024 12 :00 AM EST Contact with and (suspected) exposure to infections with a predominantly sexual mode of transmission Human immunodeficiency virus (HIV) disease ([facility]) documented in this encounter Results * (ABNORMAL) Urinalysis with reflex microscopic (12/11/2024 12:00 AM EST) Specific [place] Urine 1.026 1.003 - 1.030 LAB URINALYSIS - AUTOMATED METHOD 12/11/2024 7:38 PM [facility] pH, Urine 5.5 5.0 - 8.0 pH LAB URINALYSIS - AUTOMATED METHOD 12/11/2024 7:38 PM [facility] Leukocytes, Urine Trace(A) Negative LAB URINALYSIS - AUTOMATED METHOD 12/11/2024 7:38 PM [facility] Nitrite, Urine Negative Negative LAB URINALYSIS - AUTOMATED METHOD 12/11/2024 7:38 PM [facility] Protein, Urine Trace <=Trace mg/dL LAB URINALYSIS - AUTOMATED METHOD 12/11/2024 7:38 PM [facility] Glucose, Urine Negative Negative mg/dL LAB URINALYSIS - AUTOMATED METHOD 12/11/2024 7:38 PM [facility] Ketones, Urine 15(A) Negative mg/dL LAB URINALYSIS - AUTOMATED METHOD 12/11/2024 7:38 PM [facility] Urobilinogen, Urine 1.0 0.2 - 1.0 mg/dL LAB URINALYSIS - AUTOMATED METHOD 12/11/2024 7:38 PM [facility] Bilirubin, Urine Negative Negative LAB URINALYSIS - AUTOMATED METHOD 12/11/2024 7:38 PM [facility] Blood, Urine Negative Negative LAB URINALYSIS - AUTOMATED METHOD 12/11/2024 7:38 PM [facility] RBC, Urine 4.7(H) 0 - 4 /HPF LAB URINALYSIS - AUTOMATED METHOD 12/11/2024 7:38 PM [facility] WBC, Urine 0.0 0 - 4 /HPF LAB URINALYSIS - AUTOMATED METHOD 12/11/2024 7:38 PM [facility] Squamous Epithelial, Urine 3 0 - 60 /LPF LAB URINALYSIS - AUTOMATED METHOD 12/11/2024 7:38 PM [facility] Bacteria, Urine Negative Negative /HPF LAB URINALYSIS - AUTOMATED METHOD 12/11/2024 7:38 PM [facility] Hyaline Casts, Urine 0.0 0 - 3 /LPF LAB URINALYSIS - AUTOMATED METHOD 12/11/2024 7:38 PM [facility] Urine Urine specimen obtained by clean catch procedure / Unknown 12/11/2024 12/11/2024 7:25 PM EST us Gissel Vasquez MD LAB URINE ORDERABLES Mohini caraballo Result [facility] [address] [place] [address], [place] [phone] * Chlamydia trachomatis and Neisseria gonorrhoeae molecular study (12/11/2024 12:00 AM EST) Neisseria gonorrhoeae PCR Negative Negative LAB MOLECULAR DIAGNOSTICS METHOD 05/26/2025 1:56 PM EDT [facility] Comment: This specimen type has not been evaluated for this method. Interpret results with caution. RECTUM Chlamydia trachomatis PCR Negative Negative LAB MOLECULAR DIAGNOSTICS METHOD 05/26/2025 1:56 PM EDT [facility] Comment: This specimen type has not been evaluated for this method. Interpret results with caution. RECTUM Swab Rectum structure / Unknown 12/11/2024 12/11/2024 7:25 PM EST us Gissel Vasquez MD LAB MICROBIOLOGY - GENERA L ORDERABLES Edited Result - Final Performing Organization Address [facility]/ZIP Co de Phone Number [facility] [address] [place] [address], * Chlamydia trachomatis and Neisseria gonorrhoeae molecular study (12/11/2024 12:00 AM EST) [facility] Neisseria gonorrhoeae PCR Negative Negative LAB MOLECULAR DIAGNOSTICS METHOD 05/27/2025 12:31 PM EDT [facility] Comment: This specimen type has not been evaluated for this method. Interpret results with caution. THROAT Chlamydia trachomatis PCR Negative Negative LAB MOLECULAR DIAGNOSTICS METHOD 05/27/2025 12:31 PM EDT [facility] Comment: This specimen type has not been evaluated for this method. Interpret results with caution. THROAT Swab Structure of anterior region of neck / Unknown 12/11/2024 12/11/2024 7:25 PM EST us Gissel Vasquez MD LAB MICROBIOLOGY - GENERA L ORDERABLES Edited Result - Final Performing Organization Address [facility]/ZIP Co de Phone Number [facility] [address] [place] [address], * Chlamydia trachomatis and Neisseria gonorrhoeae molecular study (12/11/2024 12:00 AM EST) Neisseria gonorrhoeae PCR Negative Negative LAB MOLECULAR DIAGNOSTICS METHOD 12/12/2024 9:29 AM EST [facility] Chlamydia trachomatis PCR Negative Negative LAB MOLECULAR DIAGNOSTICS METHOD 12/12/2024 9:29 AM EST [facility] Urine Urine specimen from urethra / Unknown 12/11/2024 12/11/2024 7:25 PM EST us Gissel Vasquez MD LAB MICROBIOLOGY - GENERA L ORDERABLES Final Result [facility] [address] [place] [address], * (ABNORMAL) Culture wound deep (12/11/2024 12:00 AM EST) Culture, Wound Few Staphylococcus epidermidis(A) MARYAN 12/15/2024 12:33 PM [facility] Comment: The organism value for [...] and No organisms noted 12/15/2024 12:33 PM [facility] Swab Structure of left foot [...] MICROBIOLOGY - GENERA L ORDERABLES Final Result [facility]) [facility] [address] [place] [address], documented in this encounter Visit Diagnoses Diagnosis Contact with and (suspected) exposure to infections with a predominantly sexual mode of transmission Human immunodeficiency virus (HIV) disease ([facility] V24, [facility] V28) Human immunodeficiency virus [HIV] disease documented in this encounter Additional Health Concerns Infection Onset Date Last Indicated Resolved Time Respiratory Rule-Out 06/13/2025 06/13/2025 025 2:20 PM EDT documented as of this encounter Care Teams Mental Health Orderly Relationship Specialty Start Date End Date Dominik Moses MD [address] [facility] [address] [place], [place] PCP - General Pediatrics 08/27/21 documented as of this encounter
== END 2025-08-26 11:25 | disposition home or self-care (01) ==
LOC: HO.HOP 10:13
PROVIDERS: Visit Provider Counselor Mental Health
DX: F41.1 Generalized anxiety disorder (principal); F33.1 Major depressive disorder, recurrent, moderate; F43.9 Reaction to severe stress, unspecified
CPT/HCPCS: 90834

== ENCOUNTER 2025-09-02 10:19 | Outpatient (AMB) | payer BC, MEDICAID, SELFPAY ==
--- OUTSIDE RECORDS SUMMARY | 2025-09-02 05:13 | XMS_ITS ---
[...] Results Within Months MENTAL STATUS No information ENCOUNTERS Encounter Performer Location Encounter date Diagnosis Diagn osis Status Level 2 outpatient visit for evaluation and management of established patient with self-limited and/or minor problem, including problem-focused history and physical examination, and straightforward medical decision-making - typical time with patient and/or family 10 minutes or less CHARLI Lujan-[facility] Medicine Note signed at: 2025-08-31 23:03:17 -0700 HIV infection Active Family History Heart disease Social History Social History Observation Description Dates Observed Smoking Status Unknown if ever smoked Social Data No Known Social Data Immunizations Vaccine Date Status Unknown immunization status 09/02/2025 Comp leted Plan of Treatment Health Screenings Date Goal Action Comments August 21, 2025 Depression screening PHQ-2 Insurance Providers Payer name Policy type / Coverage type Policy ID Covered green party ID Policy [facility] ([facility]) [facility] [id number] Self Notes * Video Encounter - 08/31/2025 SUBJECTIVE: NORBERTO LujanC Supervising Physicians: Oscar Cardenas DO Patient Location: [place] Current time: 1:53 AM EDT Pt confirmed name and . Consent obtained for evaluation via virtual based platform A 25 y/o M presents on the phone c/o Biktarvy rx needed -has been taking for HIV for 5 years with no side effects -usually sees HIV specialist but has not been able to get refill in the last week. Ran out of pillstonight. -last labs were 3 weeks ago for clinical trial. Due for an appointment with specialist next month. Meds and allergies reviewed. OBJECTIVE: O- Calm, pleasant. Pt sounds well, in NAD. Sounds alert and is oriented. Normal soundingvoice. Nonlabored breathing or speech pattern. Answers questions appropriately.
--- NOTE | 2025-09-02 10:18 | A.OFFWM_ITS ---
Intake Intake Visit Reasons: VIDEO OP Therapy Allergies ciclopirox Allergy (Intermediate, Verified 10/27/24 10:56) Rash gluten Adverse Reaction (Mild, Verified 10/27/24 16:52) Itching lactose Adverse Reaction (Mild, Verified 10/27/24 16:52) Itching PFSH Medical History Chronic pelvic pain in male Cyst of epididymis Testicular pain, left Scrotal pain Trauma and stressor-related disorder Major depressive disorder, recurrent episode Generalized anxiety disorder HIV (human immunodeficiency virus infection) Social History Comment: Alcohol occasional Substance Use Type: Marijuana Sexual orientation: Lesbian/Saenz/Homosexual Gender identity: Male Behavioral Health Assessment Weight Management Therapy Therapy Notes Details Subjective: The patient reports increased fatigue and difficulty maintaining sleep over the past few nights. He describes his mood as low and depressed. Objective: The patient presented for a follow-up visit via telehealth. During the session, CBT-based interventions were implemented to address sleep disturbance and low mood. The patient was guided through sleep hygiene education, including establishing a consistent bedtime routine, limiting screen time before bed, and creating a restful sleep environment. Cognitive restructuring techniques were used to identify and challenge negative automatic thoughts contributing to his low mood and sleep difficulties. Behavioral activation strategies were discussed, encouraging the patient to schedule and engage in pleasurable or meaningful activities during the day to improve mood and support better sleep. Relaxation exercises, such as progressive muscle relaxation and guided imagery, were introduced to help reduce physiological arousal at bedtime. The patient was encouraged to monitor his sleep patterns and mood using a daily log to identify potential triggers and track progress. Assessment/Response: * Mental status: The patient appeared tired but was alert and oriented. Affect was subdued, and mood was reported as low. Thought processes were logical and coherent. No evidence of psychosis or cognitive impairment. * Risk reported/identified: The patient denied any suicidal or homicidal ideation, intent, or plan. No acute safety concerns identified. Assessment & Plan Assessment & Plan (1) Generalized anxiety disorder: Code(s): F41.1 - Generalized anxiety disorder (2) Major depressive disorder, recurrent episode: Code(s): F33.9 - Major depressive disorder, recurrent, unspecified Qualifiers: Major depression episode severity: moderate Qualified Code(s): F33.1 - Major depressive disorder, recurrent, moderate (3) Trauma and stressor-related disorder: Code(s): F43.9 - Reaction to severe stress, unspecified Plan Continue with weekly sessions to monitor mood and sleep, reinforce CBT and behavioral activation strategies, and provide ongoing support. Patient will track sleep and mood in a daily log to review at the next session. * Next varsha: 09/09/2025 at 10am, video. Telehealth Telehealth Telehealth Platform: [employer] Location of provider rendering services: other (Home office. [place], [place]) Location of patient: address on file Patient Identification confirmed using: Name, : Yes Telehealth method: video Patient verbally consented to treatment: Yes Patient verbally consented to billing insurance company: Yes Patient informed of any privacy concerns related to visit: Yes Minutes spent on Phone/Video with Pt.: 45 [place] [id number] Tele Psytx 45 mins Patient Type Established Diagnoses Generalized anxiety disorder F41.1 Moderate episode of recurrent major depressive disorder F33.1 Major depression episode severity: moderate Trauma and stressor-related disorder F43.9 Time Spent (min) 45
--- OUTSIDE RECORDS SUMMARY | 2025-09-02 12:13 | XMS_ITS | Data Portability ---
Author Organization [facility]LES - JOSEPH ROSALES MD [facility], Main Office Address [address] [place] [id number] Assessment Encounter Date Assessment Date Assessment LastModified by Organization Details LastModified Time 05/06/2024 05/06/2024 telehealth. Video. 17 min. pt home in [place]. [email or web address] Not available 05/06/2024 15:40:11 Plan of Treatment Reminders Order Date Submit Date Provider Last Modified By Organization Details Last Modified Time Details Appointments B20 FOLLOW UP 2024 01:00P Vania Robles MD Not available Not available Not available Lab chlamydi a trachoma tis + neisseri a gonorrho eae rRNA panel, PATRICIA+prob e, nasophar ynx 2024 025 [email or web address] [facility], [address] [place], [address], 06/19/2025 15:37:52 chlamydi a trachoma tis + neisseri a gonorrho eae + trichomo nacho vaginali s DNA panel, PATRICIA+prob e, urine 2024 [email or web address] [facility], [address] [place], [address], 06/19/2025 15:37:30 CT + NG rRNA, QL, PATRICIA+prob e, anorecta l 2024 025 [email or web address] [facility], [address] [place], [address], 06/19/2025 15:35:34 respirat ory virus panel, dfa 2024 025 [email or web address] [facility], [address], [place], [address], 06/19/2025 15:36:27 CBC w/ diff 2024 025 [email or web address] [facility], [address], [address], [place], [address], 06/20/2025 13:59:38 ALT (alanine aminotra nsferase ), serum or plasma 2024 025 [email or web address] [facility], [address], [address], [place], [address], 06/20/2025 13:59:38 AST/SGOT (asparta te aminotra nsferase ), serum or plasma 2024 025 [email or web address] [facility], [address], [address], [place], [address], 06/20/2025 13:59:38 creatini ne w/ estimate d GFR (eGFR), serum or plasma 2024 025 [email or web address] [facility], [address], [address], [place], [address], 06/20/2025 13:59:38 HIV-1 RNA, quantita tive, PCR, serum or plasma 2024 025 [email or web address] [facility], [address], [address], [place], [address], 06/20/2025 13:59:39 RPR (rapid plasma reagin), serum 2024 025 [email or web address] [facility], [address], [address], [place], [address], 06/20/2025 13:59:39 HBsAg (hepatit is B surface Ag), EIA, serum 2024 025 [email or web address] [facility], [address], [address], [place], [address], 06/20/2025 13:59:39 cd4 T-cells, blood 2024 025 [email or web address] [facility], [address], [place], [address], 06/20/2025 13:59:39 chlamydi a trachoma tis + neisseri a gonorrho eae rRNA panel, PATRICIA+prob e, nasophar ynx 2024 025 [email or web address] [facility], [address] [facility], [place], [address], 12/12/2024 14:31:30 chlamydi a trachoma tis + neisseri a gonorrho eae + trichomo nacho vaginali s DNA panel, PATRICIA+prob e, urine 2024 025 ISAIAS [facility], [address] [facility], [place], [address], 12/14/2024 12:05:46 urinalys is, complete 2024 025 ISAIAS [facility], [address] [facility], [place], [address], 12/14/2024 12:05:46 culture, urine 2024 025 ISAIAS [facility], [address] [facility], [place], [address], 12/14/2024 12:05:49 CT + NG rRNA, QL, PATRICIA+prob e, anorecta l 2024 025 [facility], [address] [facility], [place], [address], 12/12/2024 12:48:43 CBC w/ diff 2024 025 ISAIAS [facility], [address], [address], [place], [address], 12/14/2024 12:05:45 ALT (alanine aminotra nsferase ), serum or plasma 2024 025 ISAIAS [facility], [address], [address], [place], [address], 12/14/2024 12:05:48 AST/SGOT (asparta te aminotra nsferase ), serum or plasma 2024 025 ISAIAS [facility], [address], [address], [place], [address], 12/14/2024 12:05:48 CT + NG DNA, PCR, unspecif ied specimen 2024 025 [email or web address] [facility], [address], [address], [place], [address], 12/26/2024 09:18:27 creatini ne w/ estimate d GFR (eGFR), serum or plasma 2024 025 ISAIAS [facility], [address], [address], [place], [address], 12/14/2024 12:05:47 hepatiti s C virus Ab, serum 2024 025 [email or web address] [facility], [address], [address], [place], [address], 12/18/2024 10:04:24 HIV-1 RNA, quantita tive, PCR, serum or plasma 2024 025 ISAIAS [facility], [address], [address], [place], [address], 12/14/2024 12:05:47 RPR (rapid plasma reagin), serum 2024 025 ISAIAS [facility], [address], [address], [place], [address], 12/14/2024 12:05:48 HBsAg (hepatit is B surface Ag), EIA, serum 2024 025 ISAIAS [facility], [address], [address], [place], [address], 12/14/2024 12:05:49 cd4 T-cells, blood 2024 025 ISAIAS [facility], [address], [place], [address], 12/14/2024 12:05:47 microorg anism identifi cation, unspecif ied specimen 2023 024 [email or web address] [facility], [address] [place], [place] [address], [place], [address], 10/29/2024 16:30:19 microorg anism identifi cation, unspecif ied specimen 2023 024 [email or web address] [facility], [address], [address], [place], [address], 10/29/2024 16:30:19 CBC w/ diff 2023 024 [email or web address] [facility], [address], [address], [place], [address], 10/29/2024 16:30:18 electrol ytes panel, blood 2023 024 [email or web address] [facility], [address], [address], [place], [address], 10/29/2024 16:30:18 ALT (alanine aminotra nsferase ), serum or plasma 2023 024 [email or web address] [facility], [address], [address], [place], [address], 10/29/2024 16:30:19 AST/SGOT (asparta te aminotra nsferase ), serum or plasma 2023 024 [email or web address] [facility], [address], [address], [place], [address], 10/29/2024 16:30:19 CT + NG DNA, PCR, unspecif ied specimen 2023 024 [email or web address] [facility], [address], [address], [place], [address], 11/05/2024 09:56:38 creatini ne w/ estimate d GFR (eGFR), serum or plasma 2023 024 [email or web address] [facility], [address], [address], [place], [address], 10/29/2024 16:30:19 hepatiti s C virus Ab, serum 2023 024 [email or web address] [facility], [address], [address], [place], [address], 10/29/2024 16:30:19 HIV-1 RNA, quantita tive, PCR, serum or plasma 2023 024 [email or web address] [facility], [address], [address], [place], [address], 10/29/2024 16:30:19 RPR (rapid plasma reagin), serum 2023 024 [email or web address] [facility], [address], [address], [place], [address], 10/29/2024 16:30:19 HBsAg (hepatit is B surface Ag), EIA, serum 2023 024 [email or web address] [facility], [address], [address], [place], [address], 10/29/2024 16:30:19 CBC w/ diff 2023 024 [email or web address] [facility], [address], [address], [place], [address], 07/26/2024 14:38:27 electrol ytes panel, blood 2023 024 [email or web address] [facility], [address], [address], [place], [address], 07/26/2024 14:38:27 ALT (alanine aminotra nsferase ), serum or plasma 2023 024 [email or web address] [facility], [address], [address], [place], [address], 07/26/2024 14:38:27 AST/SGOT (asparta te aminotra nsferase ), serum or plasma 2023 024 [email or web address] [facility], [address], [address], [place], [address], 07/26/2024 14:38:27 CT + NG DNA, PCR, unspecif ied specimen 2023 024 [email or web address] [facility], [address], [address], [place], [address], 07/26/2024 14:38:27 creatini ne w/ estimate d GFR (eGFR), serum or plasma 2023 024 [email or web address] [facility], [address], [address], [place], [address], 07/26/2024 14:38:27 hepatiti s C virus Ab, serum 2023 024 [email or web address] [facility], [address], [address], [place], [address], 07/26/2024 14:38:27 HIV-1 RNA, quantita tive, PCR, serum or plasma 2023 024 [email or web address] [facility], [address], [address], [place], [address], 07/26/2024 14:38:27 RPR (rapid plasma reagin), serum 2023 024 [email or web address] [facility], [address], [address], [place], [address], 07/26/2024 14:38:27 T-cell regulato ry subsets panel, blood 2023 024 [email or web address] [facility], [address], [address], [place], [address], 07/26/2024 14:38:28 Referral None recorded . Procedures None recorded . Surgeries None recorded . Imaging None recorded . Medication Orders doxycycl ine hyclate 100 mg capsule 2024 025 [facility] #0769, [address] [place] [address], [address], 06/13/2025 15:36:13 Biktarvy 50 mg-200 mg-25 mg tablet 2024 025 [facility] #0769, [address] [place] [address], [address], 06/13/2025 15:36:13 Augmenti n 500 mg-125 mg tablet 2024 025 [facility] #0769, [address] [place] [address], [address], 12/11/2024 11:19:02 Biktarvy 50 mg-200 mg-25 mg tablet 2024 025 [facility] #0769, [address] [place] [address], [address], 12/11/2024 11:19:02 Biktarvy 50 mg-200 mg-25 mg tablet 2023 024 [facility]armacy #0769, [address] [place], [address], 10/18/2024 14:41:53 lidocain e 5 % topical patch 2023 024 [facility] #0769, [address] [place] [address], [address], 07/19/2024 15:14:52 diclofen ac 1 % topical gel 2023 024 [facility]armacy #0769, [address] [place] [address], [address], 07/19/2024 15:18:09 Biktarvy 50 mg-200 mg-25 mg tablet 2023 024 [facility]armacy #0769, [address] [place] [address], [address], 07/19/2024 15:14:55 multivit baez tablet 2023 024 [facility]armacy #0769, [address] [place] [address], [address], 07/19/2024 15:16:52 fluconaz ole 100 mg tablet 2023 024 [facility]armacy #0769, [address] [place] [address], [address], 05/06/2024 16:03:13 hydroxyz ine HCl 25 mg tablet 2023 024 [email or web address] [facility]/Pharmacy #0769, [address] [place] [address], [address], 05/29/2024 13:07:18 Biktarvy 50 mg-200 mg-25 mg tablet 2023 024 [facility]acy #0769, [address] [place] [address], [address], 05/06/2024 16:03:15 Patient TargetsNo targets recorded. Patient InstructionsNo instructions recorded. Reason for Referral None Reported. Results Created Date Observation Date Name Description Value Unit Range Abnormal Flag Note LastModifiedBy Organization Detail LastModifiedTime 04/15/20 24 04/15/2024 WOUND CULTU RE performing lab Perfor dan[facility] eng, [facility] [address] [place] [address] [facility] kaylie vargas MD Not Available [facility] [address] [place] [address], [address], 04/18/2024 12:12:18 04/15/20 24 04/18/2024 WOUND CULTU RE wound culture No patho gens noted PARRIS L SKIN IZABELLA PRESE NT GRAM STAIN RESUL T NO POLYS , NO EPITH ELIAL CELLS , NO ORGAN ISMS NOTED Not Available [facility] [address] [place] [address], [address], 04/18/2024 12:12:18 05/17/20 24 05/17/2024 GENIT AL CULTU RE performing lab Perfor daniel [facility] atori velasquez, [facility] [address] [place] [address] [facility] kaylie vargas MD Not Available [facility] [address] [place] [address], [address], 05/20/2024 11:46:31 05/17/20 24 05/20/2024 GENIT AL CULTU RE genital culture No yeast , Beta Strep Group B, Neiss eria gonor rhoea e, Liste jakob, Gardn erell a vagin brown, or other predo minan t potmirella pike y signi ficaide t patho gens noted . Not Available [facility] [address] [place] [address], [address], 05/20/2024 11:46:31 05/17/20 24 05/17/2024 FUNGU S CULTU RE,OT HER performing lab Perfor daniel [facility], [facility] [address] [place] [address] [facility] kaylie vargas MD Not Available [facility] [address] [place] [address], [address], 06/17/2024 08:03:22 05/17/20 24 06/17/2024 FUNGU S CULTU RE,OT HER fungus culture,othe r Negati ve for Fungus after 4 weeks Not Available [facility] [address] [place] [address], [address], 06/17/2024 08:03:22 07/19/20 24 07/20/2024 CHLAM YDIA DNA SWAB chlamydia DNA swab NEGATI VE negati ve This speci men type has not been evalu ated for this metho d. Inter pret resul ts with cauti on. SOURC E = ORAL Not Available [facility] [address] [place] [address], [address], 07/20/2024 08:43:26 07/19/20 24 07/20/2024 GC DNA SWAB GC DNA swab NEGATI VE negati ve This speci men type has not been evalu ated for this metho d. Inter pret resul ts with cauti on. SOURC E = ORAL Not Available [facility] [address] [place] [address], [address], 07/20/2024 08:43:27 07/19/20 24 07/20/2024 GC DNA SWAB performing lab Perfor daniel [facility], kris rojo r of [facility] [address] [facility] [place] [address] [facility] kaylie vargas MD Not Available [facility] [address] [place] [address], [address], 07/20/2024 08:43:27 08/30/20 24 08/31/2024 CBC/D /PLT W/ REFLE X JUANCARLOS TIN WBC 5.9 x10e3 /uL 3.4-10 .8 normal Not Available [facility] ([facility]) [address] [facility], [place], [address], 09/03/2024 14:06:45 08/30/2008/31/2024 CBC/D /PLT W/ REFLE X JUANCARLOS TIN RBC 4.67 x10e6 /uL 4.14-5 .80 normal Not Available [facility] ([facility]) [address] [facility], [place], [address], 09/03/2024 14:06:45 08/30/2008/31/2024 CBC/D /PLT W/ REFLE X JUANCARLOS TIN hemoglobin 14.8 g/dL 13.0-1 7.7 normal Not Available [facility] ([facility]) [address] [facility], [place], [address], 09/03/2024 14:06:45 08/30/2008/31/2024 CBC/D /PLT W/ REFLE X JUANCARLOS TIN hematocrit 42.2 % 37.5-5 1.0 normal Not Available [facility] ([facility]) [address] [facility], [place], [address], 09/03/2024 14:06:45 08/30/2008/31/2024 CBC/D /PLT W/ REFLE X JUANCARLOS TIN MCV 90 fL 79-97 normal Not Available [facility] ([facility]) [address] [facility], [place], [address], 09/03/2024 14:06:45 08/30/2008/31/2024 CBC/D /PLT W/ REFLE X JUANCARLOS TIN MCH 31.7 pg 26.6-3 3.0 normal Not Available [facility] ([facility]) [address] [facility], [place], [address], 09/03/2024 14:06:45 08/30/20 24 08/31/2024 CBC/D /PLT W/ REFLE X JUANCARLOS TIN MCHC 35.1 g/dL 31.5-3 5.7 normal Not Available [facility] ([facility]) [address] [facility], [place], [address], 09/03/2024 14:06:45 08/30/2008/31/2024 CBC/D /PLT W/ REFLE X JUANCARLOS TIN RDW 12.7 % 11.6-1 5.4 Not Available [facility] ([facility]) [address] [facility], [place], [address], 09/03/2024 14:06:45 08/30/2008/31/2024 CBC/D /PLT W/ REFLE X JUANCARLOS TIN platelets 276 x10e3 /uL 150-45 0 normal Not Available [facility] ([facility]) [address] [facility], [place], [address], 09/03/2024 14:06:45 08/30/20 24 08/31/2024 CBC/D /PLT W/ REFLE X JUANCARLOS TIN neutrophils 39 % not estab. normal Not Available [facility] ([facility]) [address] [facility], [place], [address], 09/03/2024 14:06:45 08/30/2008/31/2024 CBC/D /PLT W/ REFLE X JUANCARLOS TIN lymphs 51 % not estab. normal Not Available [facility] ([facility]) [address] [facility], [place], [address], 09/03/2024 14:06:45 08/30/2008/31/2024 CBC/D /PLT W/ REFLE X JUANCARLOS TIN monocytes 8 % not estab. normal Not Available [facility] ([facility]) [address] [place], [address], 09/03/2024 14:06:45 08/30/2008/31/2024 CBC/D /PLT W/ REFLE X JUANCARLOS TIN eos 1 % not estab. normal Not Available [facility] ([facility]) [address] [place], [address], 09/03/2024 14:06:45 08/30/20 24 08/31/2024 CBC/D /PLT W/ REFLE X JUANCARLOS TIN basos 1 % not estab. 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 0 normal Not Available [facility] ([facility]) [address] [facility], [place], [address], 09/03/2024 14:06:45 08/30/20 24 08/31/2024 CBC/D /PLT W/ REFLE X JUANCARLOS TIN lymphs (absolute) 3.0 x10e3 /uL 0.7-3. 1 normal Not Available [facility] ([facility]) [address] [facility], [place], [address], 09/03/2024 14:06:45 08/30/20 24 08/31/2024 CBC/D /PLT W/ REFLE X JUANCARLOS TIN monocytes(ab solute) 0.5 x10e3 /uL 0.1-0. 9 normal Not Available [facility] ([facility]) [address] [facility], [place], [address], 09/03/2024 14:06:45 08/30/20 24 08/31/2024 CBC/D /PLT W/ REFLE X JUANCARLOS TIN eos (absolute) 0.1 x10e3 /uL 0.0-0. 4 normal Not Available [facility] ([facility]) [address] [facility], [place], [address], 09/03/2024 14:06:45 08/30/2008/31/2024 CBC/D /PLT W/ REFLE X JUANCARLOS TIN baso (absolute) 0.0 x10e3 /uL 0.0-0. 2 normal Not Available [facility] ([facility]) [address] [facility], [place], [address], 09/03/2024 14:06:45 08/30/2008/31/2024 CBC/D /PLT W/ REFLE X JUANCARLOS TIN immature granulocytes 0 % not estab. Not Available [facility] ([facility]) [address] [facility], [place], [address], 09/03/2024 14:06:45 08/30/2008/31/2024 CBC/D /PLT W/ REFLE X JUANCARLOS TIN immature grans (abs) 0.0 x10e3 /uL 0.0-0. 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 lymph. 73.1 % 57.5-8 6.2 Not Available [facility] ([facility]) [address] [place], [address], 09/03/2024 14:06:45 08/30/2008/31/2024 T-KYLE L ACTIV ATION , CD8 SUBSE TS abs.cd8+hla- dr+lymph 45 /uL 0-117 Not Available [facility] ([facility]) [address] [place], [address], 09/03/2024 14:06:45 08/30/2008/31/2024 T-KYLE L ACTIV ATION , CD8 SUBSE TS % cd8+hla-dr+ lymphs 1.5 % 0.0-4. 9 Not Available [facility] ([facility]) [address] [place], [address], 09/03/2024 14:06:45 08/30/2008/31/2024 T-KYLE L ACTIV ATION , CD8 SUBSE TS % cd3+cd25+ lymphs 14.1 % 4.9-25 .9 Not Available [facility] ([facility]) [address] [place], [address], 09/03/2024 14:06:45 08/30/2008/31/2024 T-KYLE L ACTIV ATION , CD8 SUBSE TS abs.cd3+cd25 + lymphs 423 /uL 79-535 Not Available [facility] ([facility]) [address] [place], [address], 09/03/2024 14:06:45 08/30/2008/31/2024 T-KYLE L ACTIV ATION , CD8 SUBSE TS % cd8+cd38+ lymphs 15.7 % 0.0-17 .7 Not Available [facility] ([facility]) [address] [place], [address], 09/03/2024 14:06:45 08/30/2008/31/2024 T-KYLE L ACTIV ATION , CD8 SUBSE TS abs.cd8+cd38 + lymphs 471 /uL 0-381 above high normal Not Available [facility] ([facility]) [address] [place], [address], 09/03/2024 14:06:45 08/30/2009/02/2024 T-KYLE L ACTIV ATION , CD8 SUBSE TS absolute cd 4 helper 1206 /uL 359-15 19 Not Available [facility] ([facility]) [address] [place], [address], 09/03/2024 14:06:45 08/30/2009/02/2024 T-KYLE L ACTIV ATION , CD8 SUBSE TS % cd 4 pos. lymph. 40.2 % 30.8-5 8.5 Not Available [facility] ([facility]) [address] [place], [address], 09/03/2024 14:06:45 08/30/2009/02/2024 T-KYLE L ACTIV ATION , CD8 SUBSE TS absolute cd 8 (supp) 942 /uL 109-89 7 above high normal Not Available [facility] ([facility]) [address] [place], [address], 09/03/2024 14:06:45 08/30/2009/02/2024 T-KYLE L ACTIV ATION , CD8 SUBSE TS % cd 8 pos. lymph. 31.4 % 12.0-3 5.5 Not Available [facility] ([facility]) [address] [place], [address], 09/03/2024 14:06:45 08/30/20 24 09/02/2024 T-KYLE L ACTIV ATION , CD8 SUBSE TS cd4/cd8 ratio 1.28 0.92-3 .72 Not Available [facility] ([facility]) [address] [place], [address], 09/03/2024 14:06:45 08/30/20 24 08/31/2024 ELECT ROLYT E PANEL sodium 140 mmol/ L 134-14 4 normal Not Available [facility] ([facility]) [address] [place], [address], 09/03/2024 14:06:46 08/30/2008/31/2024 ELECT ROLYT E PANEL potassium 4.1 mmol/ L 3.5-5. 2 normal Not Available [facility] ([facility]) [address] [place], [address], 09/03/2024 14:06:46 08/30/2008/31/2024 ELECT ROLYT E PANEL chloride 101 mmol/ L 96-106 normal Not Available [facility] ([facility]) [address] [place], [address], 09/03/2024 14:06:46 08/30/2008/31/2024 ELECT ROLYT E PANEL carbon dioxide, total 24 mmol/ L 20-29 normal Not Available [facility] ([facility]) [address] [place], [address], 09/03/2024 14:06:46 08/30/2009/03/2024 CHLAM YDIA/ GC AMPLI FICAT ION chlamydia trachomatis, PATRICIA COMMEN T Dupli ash proce dure order ed. Not Available [facility] ([facility]) [address] [place], [address], 09/03/2024 14:06:46 08/30/2009/03/2024 CHLAM YDIA/ GC AMPLI FICAT ION neisseria gonorrhoeae, PATRICIA COMMEN T Dupli ash proce dure order ed. Not Available [facility] ([facility]) [address] [facility], [place], [address], 09/03/2024 14:06:46 08/30/2008/31/2024 GLOM FILT RATE, ESTIM ATED creatinine 1.04 mg/dL 0.76-1 .27 normal Not Available [facility] ([facility]) [address] [facility], [place], [address], 09/03/2024 14:06:47 08/30/2008/31/2024 GLOM FILT RATE, ESTIM ATED eGFR 104 mL/mi n/1.7 3 >59 normal Not Available [facility] ([facility]) [address] [facility] [address], [place], [address], 09/03/2024 14:06:47 08/30/2009/01/2024 HCV ANTIB MELL RFX TO QUANT PCR HCV Ab Non Reacti ve non reacti ve Not Available [facility] ([facility]) [address] [facility] [address], [place], [address], 09/03/2024 14:06:47 08/30/2009/01/2024 HCV ANTIB MELL RFX TO QUANT PCR interpretati on: Commen t Not infec daphnie with HCV unles s early or acute infec tion is suspe cted (whic h may be delay ed in an immun ocomp romis ed indiv idual ), or other evide nce exist s to indic ate HCV infec tion. Not Available [facility] ([facility]) [address] [facility] [address], [place], [address], 09/03/2024 14:06:47 08/30/2008/31/2024 RNA, REAL TIME PCR (NON- GRAPH ) HIV-1 RNA by PCR <20 copie s/mL HIV-1 RNA detec daphnie The repor table range for this assay is 20 to 10,00 0,000 copie s HIV-1 RNA/m L. Not Available [facility] ([facility]) [address] [facility] [address], [place], [address], 09/03/2024 14:06:47 08/30/20 24 08/31/2024 RNA, REAL TIME PCR (NON- GRAPH ) log10 HIV-1 RNA COMMEN T log10 copy/ mL Unabl e to calcu late resul t since non-n umeri c resul t obtai verena for compo nent test. Not Available [facility] ([facility]) [address] [facility] [address], [place], [address], 09/03/2024 14:06:47 08/30/20 24 09/02/2024 PREP: RPR W/REF ARIADNA TITER +TPAB RPR Reacti ve non reacti ve abnormal Not Available [facility] ([facility]) [address] [place], [address], 09/03/2024 14:06:48 08/30/20 24 09/02/2024 PREP: RPR W/REF ARIADNA TITER +TPAB RPR, quant. 1:1 titer nonrea <1:1 above high normal Not Available [facility] ([facility]) [address] [facility] [address], [place], [address], 09/03/2024 14:06:48 08/30/20 24 09/02/2024 PREP: RPR W/REF ARIADNA TITER +TPAB interpretati on: Commen t Syphi lis: RPR with Refle x to RPR Titer and Trepo nemal Antib odies , Tradi kyree l Scree aron and Diagn osis Algor ithm ----- ----- ----- ----- ----- ----- ----- ----- ----- ----- ----- ----- Trepo nemal RPR RPR, Qn Ab Final Inter preta tion ----- --- ----- ---- ----- ----- ----- ----- ----- ----- ---- Non N/A N/A No labor atory evide nce React gilles of syphi lis. Retes t in 2-4 weeks if recen t expos ure us suspe cted. ----- --- ----- ---- ----- ----- ----- ----- ----- ----- ---- React gilles >/=1: 1 Non Nontr epone mal antib odies React gilles detec daphnie. Syphi lis unlik santiago; biolo gical false posit gilles possi ble. Retes t in 2-4 weeks if recen t expos ure is suspe cted. ----- --- ----- ---- ----- ----- ----- ----- ----- ----- ---- React gilles >/=1: 1 React gilles Trepo nemal and nontr epone mal antib odies detec daphnie. Consi stent with past or curre nt (pote ntial early ) syphi lis. Not Available [facility] ([facility]) [address] [place], [address], 09/03/2024 14:06:48 08/30/2009/03/2024 PREP: RPR W/REF ARIADNA TITER +TPAB treponema pallidum antibodies Non Reacti ve non reacti ve Not Available [facility] ([facility]) [address] [place], [address], 09/03/2024 14:06:48 08/30/2008/31/2024 AST (SGOT ) AST (SGOT) 32 IU/L 0-40 normal Not Available [facility] ([facility]) [address] [place], [address], 09/03/2024 14:06:48 08/30/2008/31/2024 ALT (SGPT ) ALT (SGPT) 28 IU/L 0-44 normal Not Available [facility] ([facility]) [address] [facility], [place], [address], 09/03/2024 14:06:48 08/30/20 24 09/03/[address] PROBL EM request problem COMMEN T Dupli ash proce dure order ed. TEST: [id number] Chlam ydia trach omati s, PATRICIA Panel : [id number] [phone] Neiss eria gonor rhoea e, PATRICIA Panel : [id number] Not Available [facility] ([facility]) [address] [facility], [place], [address], 09/03/2024 14:06:49 10/18/20 24 10/18/2024 CULTU RE EYE WITH GRAM STAIN .note See Note Origi nal Order ing Provi eliot: NANO AARON Betzy YOUSIF CONNIE [facility] - [address] [facility], [place], [facility] [id number] Not Available [facility] [address] [place] [address], [id number], 10/18/2024 21:54:53 10/18/20 24 10/18/2024 CULTU RE EYE WITH GRAM STAIN gram stain result No polymo rphonu clear leukoc ytes, No epithe lial cells, and No organi sms noted Not Available [facility] [address] [place], [address], 10/18/2024 21:54:53 10/18/20 24 10/18/2024 CULTU RE GENIT AL .note See Note Origi nal Order ing Provi eliot: NANO WALKER Betzy NICA CONNIE [facility]ory - [address] [facility], [place], [facility] [id number] Not Available [facility] [address] [place], [address], 10/19/2024 13:33:31 10/18/20 24 10/18/2024 CULTU RE GENIT AL culture, genital No growth at 1 day Not Available [facility] [address] [place], [address], 10/19/2024 13:33:31 10/18/20 24 10/18/2024 CULTU RE EYE WITH GRAM STAIN .note See Note Origi nal Order ing Provi eliot: NANO STOVERO CONNIE [facility] - [address] [facility], [place], [facility] [id number] Not Available [facility] [address] [place] [address], [id number], 10/20/2024 10:37:32 10/18/20 24 10/18/2024 CULTU RE EYE WITH GRAM STAIN culture, eye Screen ing for Pathog ens Not Available [facility] [address] [place] [address], [id number], 10/20/2024 10:37:32 10/18/20 24 10/18/2024 CULTU RE EYE WITH GRAM STAIN gram stain result No polymo rphonu clear leukoc ytes, No epithe lial cells, and No organi sms noted Not Available [facility] [address] [place] [address], [address], 10/20/2024 10:37:32 10/18/20 24 10/18/2024 CULTU RE GENIT AL .note See Note Origi nal Order ing Provi eliot: NANO Bo MARTO CONNIE [facility] - [address] [facility], [place], [facility] [id number] Not Available [facility] [address] [place] [address], [id number], 10/20/2024 11:32:32 10/18/20 24 10/18/2024 CULTU RE GENIT AL culture, genital No pathog ens isolat ed to date. Not Available [facility] [address] [place] [address], [id number], 10/20/2024 11:32:32 10/18/20 24 10/18/2024 CULTU RE EYE WITH GRAM STAIN .note See Note Origi nal Order ing Provi eliot: NANO IA T MARTO CONNIE [facility] [address] [facility] [place] [id number] Not Available [facility] [address] [place], [address], 10/21/2024 10:52:48 10/18/20 24 10/18/2024 CULTU RE EYE WITH GRAM STAIN culture, eye No pathog ens isolat ed. Not Available [facility] [address] [place] [address], [id number], 10/21/2024 10:52:48 10/18/20 24 10/18/2024 CULTU RE EYE WITH GRAM STAIN gram stain result No polymo rphonu clear leukoc ytes, No epithe lial cells, and No organi sms noted Not Available [facility] [address] [place] [address], [id number], 10/21/2024 10:52:48 10/18/20 24 10/18/2024 CULTU RE GENIT AL .note See Note Origi nal Order ing Provi eliot: NANO OYUSIF CONNIE [facility]ory - [address] [facility], [place], [place] [id number] Not Available [facility] [address] [place] [address], [address], 10/21/2024 10:54:44 10/18/20 24 10/18/2024 CULTU RE GENIT AL culture, genital No yeast, Beta Strep group B, Neisse jakob gonorr hoeae, Stella ia, Gardne rella vagina lis, or other predom inant potent ially signif icant pathog ens noted. Not Available [facility] [address] [place] [address], [address], 10/21/2024 10:54:44 12/11/19 25 12/11/2024 URINA LYSIS WITH REFLE X MICRO SCOPI C specific gravity urine 1.026 1.003- 1.030 Not Available [facility] [address] [place] [address], [id number], 12/11/2024 19:39:08 12/11/1912/11/2024 URINA LYSIS WITH REFLE X MICRO SCOPI C pH, urine 5.5 pH 5.0-8. 0 Not Available [facility] [address] [place], [address], 12/11/2024 19:39:08 12/11/19 25 12/11/2024 URINA LYSIS WITH REFLE X MICRO SCOPI C leukocytes, urine Trace negati ve abnormal Not Available [facility] [address] [place], [address], 12/11/2024 19:39:08 12/11/1912/11/2024 URINA LYSIS WITH REFLE X MICRO SCOPI C nitrite, urine Negati ve negati ve Not Available [facility] [address] [place], [address], 12/11/2024 19:39:08 12/11/1912/11/2024 URINA LYSIS WITH REFLE X MICRO SCOPI C protein, urine Trace mg/dL <=trac e Not Available [facility] [address] [place], [address], 12/11/2024 19:39:08 12/11/1912/11/2024 URINA LYSIS WITH REFLE X MICRO SCOPI C glucose, urine Negati ve mg/dL negati ve Not Available [facility] [address] [place], [address], 12/11/2024 19:39:08 12/11/1912/11/2024 URINA LYSIS WITH REFLE X MICRO SCOPI C ketones, urine 15 mg/dL negati ve abnormal Not Available [facility] [address] [place], [address], 12/11/2024 19:39:08 12/11/1912/11/2024 URINA LYSIS WITH REFLE X MICRO SCOPI C urobilinogen , urine 1.0 mg/dL 0.2-1. 0 Not Available [facility] [address] [place], [address], 12/11/2024 19:39:08 12/11/19 25 12/11/2024 URINA LYSIS WITH REFLE X MICRO SCOPI C bilirubin, urine Negati ve negati ve Not Available [facility] [address] [place] [address], [address], 12/11/2024 19:39:08 12/11/19 25 12/11/2024 URINA LYSIS WITH REFLE X MICRO SCOPI C blood, urine Negati ve negati ve Not Available [facility] [address] [place] [address], [address], 12/11/2024 19:39:08 12/11/19 25 12/11/2024 URINA LYSIS WITH REFLE X MICRO SCOPI C RBC, urine 4.7 /hpf 0-4 high Not Available [facility] [address] [place] [address], [id number], 12/11/2024 19:39:08 12/11/19 25 12/11/2024 URINA LYSIS WITH REFLE X MICRO SCOPI C WBC, urine 0.0 /hpf 0-4 Not Available [facility] [address] [place] [address], [address], 12/11/2024 19:39:08 12/11/19 25 12/11/2024 URINA LYSIS WITH REFLE X MICRO SCOPI C squamous epithelial, urine 3 /lpf 0-60 Not Available [facility] [address] [place] [address], [id number], 12/11/2024 19:39:08 12/11/19 25 12/11/2024 URINA LYSIS WITH REFLE X MICRO SCOPI C bacteria, urine Negati ve /hpf negati ve Not Available [facility] [address] [place] [address], [address], 12/11/2024 19:39:08 12/11/19 25 12/11/2024 URINA LYSIS WITH REFLE X MICRO SCOPI C hyaline casts, urine 0.0 /lpf 0-3 Not Available [facility] [address] [place] [address], [id number], 12/11/2024 19:39:08 12/11/19 25 12/11/2024 URINA LYSIS WITH REFLE X MICRO SCOPI C note See Report [facility], [address] [facility], [place], [place] [id number] Not Available [facility] [address] [place], [address], 12/11/2024 19:39:08 12/11/19 25 12/11/2024 CULTU RE WOUND DEEP .note See Note Origi nal Order ing Provi eliot: NANO IA T MARTO CONNIE [facility] Labor atory - [address] [facility] , [place], [place] [phone] Not Available [facility] [address] [place], [address], 12/15/2024 12:35:17 12/11/19 25 12/11/2024 CULTU RE WOUND DEEP culture, wound abnormal STAPH YLOCO CCUS EPIDE RMIDI S Few Staph yloco ccus epide rmidi s The organ ism value for this resul t has been updat ed. These resul ts have been appen ded to the previ ously preli minar y verif ied repor t. Edite d resul t: Previ ously repor daphnie as Gram Posit gilles Cocci on 025 at 1224 EST. STAPH YLOCO CCUS EPIDE RMIDI S Few Staph yloco ccus epide rmidi s The organ ism value for this resul t has been updat ed. These resul ts have been appen ded to the previ ously preli minar y verif ied repor t. Edite d resul t: Previ ously repor daphnie as Gram Posit gilles Cocci on 025 at 1224 EST. Not Available [facility] [address] [place], [address], 12/15/2024 12:35:17 12/11/19 25 12/11/2024 CULTU RE WOUND DEEP gram stain result No polymo rphonu clear leukoc ytes, No epithe lial cells, and No organi sms noted Not Available [facility] [address] [place], [address], 12/15/2024 12:35:17 12/11/19 25 12/11/2024 CULTU RE WOUND DEEP report Evelyn isidoro bishopkaykay Tereso ledesma Elizabethkaylee e: Swab Colle cted: Dec 11, 2024 00:00 :00 ----- ----- ----- ----- ----- ----- ----- ----- ----- ----- ----- ----- ----- ----- ----- ----- Organ ism: STAPH YLOCO CCUS EPIDE RMIDI S Antib iotic s MARYAN Inter preta tion ----- ----- ----- ----- ----- ----- ----- ----- ----- ----- ----- ----- ----- ----- ----- ----- Penic illin G IgG-m Cnc 0.5 R Oxaci llin Susc Islt 4 R Genta micin Islt MARYAN 0.5 S Cipro floxa karina Islt MARYAN 0.5 S levoF LOXac in Islt MARYAN 0.12 S Eryth romyc in Susc Islt 8 R Clind amyci n Susc Islt 0.25 S Quinu prist in+Da lfopr ist Islt MIC0. 25 S Linez olid Islt Grad strip 2 S Vanco mycin Susc Islt 2 S Tetra cycli ne Islt MARYAN 2 S rifAM Pin Susc Islt 0.5 S ----- ----- ----- ----- ----- ----- ----- ----- ----- ----- ----- ----- ----- ----- ----- ----- Organ ism: STAPH YLOCO CCUS EPIDE RMIDI S Antib iotic s MARYAN Inter preta tion ----- ----- ----- ----- ----- ----- ----- ----- ----- ----- ----- ----- ----- ----- ----- ----- Penic illin G IgG-m Cnc 0.5 R Oxaci llin Susc Islt 0.25 S Genta micin Islt MARYAN 0.5 S Cipro floxa karina Islt MARYAN 0.5 S levoF LOXac in Islt MARYAN 0.12 S Eryth romyc in Susc Islt 8 R Clind amyci n Susc Islt 8 R Quinu prist in+Da lfopr ist Islt MIC0. 25 S Linez olid Islt Grad strip 1 S Vanco mycin Susc Islt 2 S Tetra cycli ne Islt MARYAN 2 S rifAM Pin Susc Islt 0.5 S Not Available [facility] [address] [place] [address], [address], 12/15/2024 12:35:17 12/11/1912/11/2024 CHLAM YDIA TRACH OMATI S AND NEISS ERIA GONOR RHOEA E MOLEC ULAR STUDY .note See Note Origi nal Order ing Provi eliot: NANO YOUSIF CONNIE [facility] - [address] [facility], [place], [place] [id number] Not Available [facility] [address] [place] [address], [id number], 12/12/2024 09:15:45 12/11/1912/11/2024 CHLAM YDIA TRACH OMATI S AND NEISS ERIA GONOR RHOEA E MOLEC ULAR STUDY neisseria gonorrhoeae PCR Negati ve negati ve Not Available [facility] [address] [place], [address], 12/12/2024 09:15:45 12/11/1912/11/2024 CHLAM YDIA TRACH OMATI S AND NEISS ERIA GONOR RHOEA E MOLEC ULAR STUDY chlamydia trachomatis PCR Negati ve negati ve Not Available [facility] [address] [place], [address], 12/12/2024 09:15:45 12/11/19 25 12/11/2024 CHLAM YDIA TRACH OMATI S AND NEISS ERIA GONOR RHOEA E MOLEC ULAR STUDY .note See Note Origi nal Order ing Provi eliot: NANO YOUSIF CONNIE [facility] - [address] [facility] [phone] Not Available [facility] [address] [place] [address], [address], 12/12/2024 09:15:47 12/11/19 25 12/11/2024 CHLAM YDIA TRACH OMATI S AND NEISS ERIA GONOR RHOEA E MOLEC ULAR STUDY neisseria gonorrhoeae PCR Negati ve negati ve Not Available [facility] [address] [place] [address], [address], 12/12/2024 09:15:47 12/11/19 25 12/11/2024 CHLAM YDIA TRACH OMATI S AND NEISS ERIA GONOR RHOEA E MOLEC ULAR STUDY chlamydia trachomatis PCR Negati ve negati ve Not Available [facility] [address] [place] [address], [address], 12/12/2024 09:15:47 12/11/19 25 12/11/2024 CHLAM YDIA TRACH OMATI S AND NEISS ERIA GONOR RHOEA E MOLEC ULAR STUDY .note See Note Origi nal Order ing Provi eliot: NANO YOUSIF CONNIE [facility] - [address] [facility], [facility], [facility] [place] [id number] Not Available [facility] [address] [place] [address], [address], 12/12/2024 09:30:50 12/11/19 25 12/11/2024 CHLAM YDIA TRACH OMATI S AND NEISS ERIA GONOR RHOEA E MOLEC ULAR STUDY neisseria gonorrhoeae PCR Negati ve negati ve Not Available [facility] [address] [place] [address], [address], 12/12/2024 09:30:50 12/11/19 25 12/11/2024 CHLAM YDIA TRACH OMATI S AND NEISS ERIA GONOR RHOEA E MOLEC ULAR STUDY chlamydia trachomatis PCR Negati ve negati ve Not Available [facility] [address] [place], [address], 12/12/2024 09:30:50 12/11/19 25 12/12/2024 CBC/D /PLT W/ REFLE X JUANCARLOS TIN WBC 6.4 x10e3 /uL 3.4-10 .8 normal Not Available [facility] ([facility]) [address] [place], [address], 12/14/2024 12:05:45 12/11/19 25 12/12/2024 CBC/D /PLT W/ REFLE X JUANCARLOS TIN RBC 5.06 x10e6 /uL 4.14-5 .80 normal Not Available [facility] ([facility]) [address] [place], [address], 12/14/2024 12:05:45 12/11/19 25 12/12/2024 CBC/D /PLT W/ REFLE X JUANCARLOS TIN hemoglobin 15.8 g/dL 13.0-1 7.7 normal Not Available [facility] ([facility]) [address] [place], [address], 12/14/2024 12:05:45 12/11/19 25 12/12/2024 CBC/D /PLT W/ REFLE X JUANCARLOS TIN hematocrit 45.1 % 37.5-5 1.0 normal Not Available [facility] ([facility]) [address] [place], [address], 12/14/2024 12:05:45 12/11/19 25 12/12/2024 CBC/D /PLT W/ REFLE X JUANCARLOS TIN MCV 89 fL 79-97 normal Not Available [facility] ([facility]) [address] [facility] [place], [address], 12/14/2024 12:05:45 12/11/19 25 12/12/2024 CBC/D /PLT W/ REFLE X JUANCARLOS TIN MCH 31.2 pg 26.6-3 3.0 normal Not Available [facility] ([facility]) [address] [facility], [place], [address], 12/14/2024 12:05:45 12/11/19 25 12/12/2024 CBC/D /PLT W/ REFLE X JUANCARLOS TIN MCHC 35.0 g/dL 31.5-3 5.7 normal Not Available [facility] ([facility]) [address] [place], [address], 12/14/2024 12:05:45 12/11/19 25 12/12/2024 CBC/D /PLT W/ REFLE X JUANCARLOS TIN RDW 12.1 % 11.6-1 5.4 Not Available [facility] ([facility]) [address] [facility], [place], [address], 12/14/2024 12:05:45 12/11/19 25 12/12/2024 CBC/D /PLT W/ REFLE X JUANCARLOS TIN platelets 268 x10e3 /uL 150-45 0 normal Not Available [facility] ([facility]) [address] [place], [address], 12/14/2024 12:05:45 12/11/19 25 12/12/2024 CBC/D /PLT W/ REFLE X JUANCARLOS TIN neutrophils 57 % not estab. normal Not Available [facility] ([facility]) [address] [place], [address], 12/14/2024 12:05:45 12/11/19 25 12/12/2024 CBC/D /PLT W/ REFLE X JUANCARLOS TIN lymphs 35 % not estab. normal Not Available [facility] ([facility]) [address] [place], [address], 12/14/2024 12:05:45 12/11/19 25 12/12/2024 CBC/D /PLT W/ REFLE X JUANCARLOS TIN monocytes 7 % not estab. normal Not Available [facility] ([facility]) [address] [facility], [place], [address], 12/14/2024 12:05:45 12/11/19 25 12/12/2024 CBC/D /PLT W/ REFLE X JUANCARLOS TIN eos 1 % not estab. normal Not Available [facility] ([facility]) [address] [place], [address], 12/14/2024 12:05:45 12/11/19 25 12/12/2024 CBC/D /PLT W/ REFLE X JUANCARLOS TIN basos 0 % not estab. 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 0 normal Not Available [facility] ([facility]) [address] [place], [address], 12/14/2024 12:05:45 12/11/19 25 12/12/2024 CBC/D /PLT W/ REFLE X JUANCARLOS TIN lymphs (absolute) 2.3 x10e3 /uL 0.7-3. 1 normal Not Available [facility] ([facility]) [address] [place], [address], 12/14/2024 12:05:45 12/11/19 25 12/12/2024 CBC/D /PLT W/ REFLE X JUANCARLOS TIN monocytes(ab solute) 0.4 x10e3 /uL 0.1-0. 9 normal Not Available [facility] ([facility]) [address] [facility], [place], [address], 12/14/2024 12:05:45 12/11/19 25 12/12/2024 CBC/D /PLT W/ REFLE X JUANCARLOS TIN eos (absolute) 0.1 x10e3 /uL 0.0-0. 4 normal Not Available [facility] ([facility]) [address] [facility], [place], [address], 12/14/2024 12:05:45 12/11/19 25 12/12/2024 CBC/D /PLT W/ REFLE X JUANCARLOS TIN baso (absolute) 0.0 x10e3 /uL 0.0-0. 2 normal Not Available [facility] ([facility]) [address] [facility], [place], [address], 12/14/2024 12:05:45 12/11/19 25 12/12/2024 CBC/D /PLT W/ REFLE X JUANCARLOS TIN immature granulocytes 0 % not estab. Not Available [facility] ([facility]) [address] [place], [address], 12/14/2024 12:05:45 12/11/19 25 12/12/2024 CBC/D /PLT W/ REFLE X JUANCARLOS TIN immature grans (abs) 0.0 x10e3 /uL 0.0-0. 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 RANGE OPERATOR CLOTH Not Available [facility] ([facility]) [address] [facility], [place], [address], 12/14/2024 12:05:45 12/11/19 25 12/12/2024 CBC/D /PLT W/ REFLE X JUANCARLOS TIN hematology comments: DYE RANGE OPERATOR CLOTH Not Available [facility] ([facility]) [address] [facility], [place], [address], 12/14/2024 12:05:45 12/11/19 25 12/12/2024 URINA LYSIS , COMPL ETE specific gravity 1.008 1.005- 1.030 normal Not Available [facility] ([facility]) [address] [facility], [place], [address], 12/14/2024 12:05:46 12/11/19 25 12/12/2024 URINA LYSIS , COMPL ETE pH 6.0 5.0-7. 5 normal Not Available [facility] ([facility]) [address] [facility], [place], [address], 12/14/2024 12:05:46 12/11/19 25 12/12/2024 URINA LYSIS , COMPL ETE urine-color Yellow yellow Not Available [facility] ([facility]) [address] [facility], [place], [address], 12/14/2024 12:05:46 12/11/19 25 12/12/2024 URINA LYSIS , COMPL ETE appearance Clear clear Not Available [facility] ([facility]) [address] [facility], [place], [address], 12/14/2024 12:05:46 12/11/19 25 12/12/2024 URINA LYSIS , COMPL ETE WBC esterase Negati ve negati ve Not Available [facility] ([facility]) [address] [facility], [place], [address], 12/14/2024 12:05:46 12/11/19 25 12/12/2024 URINA LYSIS , COMPL ETE protein Negati ve negati ve/tra ce Not Available [facility] ([facility]) [address] [place], [address], 12/14/2024 12:05:46 12/11/19 25 12/12/2024 URINA LYSIS , COMPL ETE glucose Negati ve negati ve Not Available [facility] ([facility]) [address] [place], [address], 12/14/2024 12:05:46 12/11/19 25 12/12/2024 URINA LYSIS , COMPL ETE ketones Negati ve negati ve Not Available [facility] ([facility]) [address] [place], [address], 12/14/2024 12:05:46 12/11/19 25 12/12/2024 URINA LYSIS , COMPL ETE occult blood Negati ve negati ve Not Available [facility] ([facility]) [address] [place], [address], 12/14/2024 12:05:46 12/11/19 25 12/12/2024 URINA LYSIS , COMPL ETE bilirubin Negati ve negati ve Not Available [facility] ([facility]) [address] [place], [address], 12/14/2024 12:05:46 12/11/19 25 12/12/2024 URINA LYSIS , COMPL ETE urobilinogen ,semi-qn 0.2 mg/dL 0.2-1. 0 normal Not Available [facility] ([facility]) [address] [place], [address], 12/14/2024 12:05:46 12/11/19 25 12/12/2024 URINA LYSIS , COMPL ETE nitrite, urine Negati ve negati ve Not Available [facility] ([facility]) [address] [place], [address], 12/14/2024 12:05:46 12/11/19 25 12/12/2024 URINA LYSIS , COMPL ETE microscopic examination Commen t Micro scopi c follo ws if indic ated. Not Available [facility] ([facility]) [address] [facility], [place], [address], 12/14/2024 12:05:46 12/11/19 25 12/12/2024 URINA LYSIS , COMPL ETE microscopic examination See below: Micro scopi c was indic ated and was perfo rmed. Not Available [facility] ([facility]) [address] [facility], [place], [address], 12/14/2024 12:05:46 12/11/19 25 12/12/2024 URINA LYSIS , COMPL ETE WBC None seen /hpf 0 - 5 Not Available [facility] ([facility]) [address] [facility], [place], [address], 12/14/2024 12:05:46 12/11/19 25 12/12/2024 URINA LYSIS , COMPL ETE RBC 0-2 /hpf 0 - 2 Not Available [facility] ([facility]) [address] [facility], [place], [address], 12/14/2024 12:05:46 12/11/19 25 12/12/2024 URINA LYSIS , COMPL ETE epithelial cells (non renal) None seen /hpf 0 - 10 Not Available [facility] ([facility]) [address] [facility], [place], [address], 12/14/2024 12:05:46 12/11/19 25 12/12/2024 URINA LYSIS , COMPL ETE epithelial cells (renal) 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 RANGE OPERATOR CLOTH Not Available [facility] ([facility]) [address] [facility], [place], [address], 12/14/2024 12:05:46 12/11/19 25 12/12/2024 URINA LYSIS , COMPL ETE casts None seen /lpf none seen Not Available [facility] ([facility]) [address] [facility], [place], [address], 12/14/2024 12:05:46 12/11/19 25 12/12/2024 URINA LYSIS , COMPL ETE cast type DYE RANGE OPERATOR CLOTH Not Available [facility] ([facility]) [address] [facility] [address], [place], [address], 12/14/2024 12:05:46 12/11/19 25 12/12/2024 URINA LYSIS , COMPL ETE crystals DYE RANGE OPERATOR CLOTH Not Available [facility] ([facility]) [address] [facility] [place], [address], 12/14/2024 12:05:46 12/11/19 25 12/12/2024 URINA LYSIS , COMPL ETE crystal type DYE RANGE OPERATOR CLOTH Not Available [facility] ([facility]) [address] [facility] [address], [place], [address], 12/14/2024 12:05:46 12/11/19 25 12/12/2024 URINA LYSIS , COMPL ETE mucus threads DYE RANGE OPERATOR CLOTH Not Available [facility] ([facility]) [address] [place], [address], 12/14/2024 12:05:46 12/11/19 25 12/12/2024 URINA LYSIS , COMPL ETE bacteria None seen none seen/f ew Not Available [facility] ([facility]) [address] [place], [address], 12/14/2024 12:05:46 12/11/19 25 12/12/2024 URINA LYSIS , COMPL ETE yeast DYE RANGE OPERATOR CLOTH Not Available [facility] ([facility]) [address] [place], [address], 12/14/2024 12:05:46 12/11/19 25 12/12/2024 URINA LYSIS , COMPL ETE trichomonas DYE RANGE OPERATOR CLOTH Not Available [facility] ([facility]) [address] [facility] [place], [address], 12/14/2024 12:05:46 12/11/19 25 12/12/2024 URINA LYSIS , COMPL ETE comment DYE RANGE OPERATOR CLOTH Not Available [facility] ([facility]) [address] [facility], [place], [address], 12/14/2024 12:05:46 12/11/19 25 12/13/2024 CT/GC /TV PATRICIA+M YCOPL ASMAS URINE mycoplasma genitalium PATRICIA Negati ve negati ve Not Available [facility] ([facility]) [address] [facility], [place], [address], 12/14/2024 12:05:46 12/11/19 25 12/13/2024 CT/GC /TV PATRICIA+M YCOPL ASMAS URINE mycoplasma hominis PATRICIA Negati ve negati ve Not Available [facility] ([facility]) [address] [facility], [place], [address], 12/14/2024 12:05:46 12/11/19 25 12/13/2024 CT/GC /TV PATRICIA+M YCOPL ASMAS URINE ureaplasma spp PATRICIA Negati ve negati ve Not Available [facility] ([facility]) [address] [facility], [place], [address], 12/14/2024 12:05:46 12/11/19 25 12/13/2024 CT/GC /TV PATRICIA+M YCOPL ASMAS URINE trich vag by PATRICIA Negati ve negati ve Not Available [facility] ([facility]) [address] [facility], [place], [address], 12/14/2024 12:05:46 12/11/19 25 12/13/2024 CT/GC /TV PATRICIA+M YCOPL ASMAS URINE chlamydia trachomatis, PATRICIA Negati ve negati ve Not Available [facility] ([facility]) [address] [facility], [place], [address], 12/14/2024 12:05:46 01/29/20 25 12/13/2024 CT/GC /TV PATRICIA+M YCOPL ASMAS URINE neisseria gonorrhoeae, PATRICIA Negati ve negati ve Not Available [facility] ([facility]) [address] [facility], [place], [address], 12/14/2024 12:05:46 12/11/19 25 12/12/2024 RNA, REAL TIME PCR (GRAP H) HIV-1 RNA by PCR <20 copie s/mL HIV-1 RNA not detec daphnie The repor table range for this assay is 20 to 10,00 0,000 copie s HIV-1 RNA/m L. Not Available [facility] ([facility]) [address] [facility], [place], [address], 12/14/2024 12:05:47 12/11/19 25 12/12/2024 RNA, REAL TIME PCR (GRAP H) log10 HIV-1 RNA COMMEN T log10 copy/ mL Unabl e to calcu late resul t since non-n umeri c resul t obtai verena for compo nent test. Not Available [facility] ([facility]) [address] [facility], [place], [address], 12/14/2024 12:05:47 12/11/19 25 12/13/2024 RNA, REAL TIME PCR (GRAP H) pdf . Not Available [facility] ([facility]) [address] [place], [address], 12/14/2024 12:05:47 12/11/19 25 12/12/2024 CD4+L YMPHS absolute cd 4 helper 846 /uL 359-15 19 Not Available [facility] ([facility]) [address] [place], [address], 12/14/2024 12:05:47 12/11/19 25 12/12/2024 CD4+L YMPHS % cd 4 pos. lymph. 36.8 % 30.8-5 8.5 Not Available [facility] ([facility]) [address] [place], [address], 12/14/2024 12:05:47 12/11/1912/12/2024 GLOM FILT RATE, ESTIM ATED creatinine 1.00 mg/dL 0.76-1 .27 normal Not Available [facility] ([facility]) [address] [facility] [place], [address], 12/14/2024 12:05:47 12/11/1912/12/2024 GLOM FILT RATE, ESTIM ATED eGFR 109 mL/mi n/1.7 3 >59 normal Not Available [facility] ([facility]) [address] [facility] [place], [address], 12/14/2024 12:05:47 12/11/1912/12/2024 RPR, RFX QN RPR/C ONFIR M TP RPR Non Reacti ve non reacti ve Not Available [facility] ([facility]) [address] [facility] [place], [address], 12/14/2024 12:05:48 12/11/1912/12/2024 AST (SGOT ) AST (SGOT) 75 IU/L 0-40 above high normal Not Available [facility] ([facility]) [address] [facility] [place], [address], 12/14/2024 12:05:48 12/11/1912/12/2024 ALT (SGPT ) ALT (SGPT) 141 IU/L 0-44 above high normal Not Available [facility] ([facility]) [address] [facility] [place], [address], 12/14/2024 12:05:48 12/11/1912/12/2024 HBSAG SCREE N HBsAg screen Negati ve negati ve Not Available [facility] ([facility]) [address] [facility] [place], [address], 12/14/2024 12:05:48 12/11/19 25 12/14/2024 URINE CULTU RE,CO MPREH ENSIV E urine culture,comp rehensive Final report Not Available [facility] ([facility]) [address] [facility], [place], [address], 12/14/2024 12:05:49 12/11/19 25 12/14/2024 URINE CULTU RE,CO MPREH ENSIV E result 1 COMMEN T No growt h in 48 hours . Not Available [facility] ([facility]) [address] [facility], [place], [address], 12/14/2024 12:05:49 12/11/19 25 12/11/2024 CHLAM YDIA TRACH OMATI S AND NEISS ERIA GONOR RHOEA E MOLEC ULAR STUDY .note See Note Origi nal Order ing Provi eliot: NANO YOUSIF CONNIE [facility] - [address] [facility], [facility] d, [facility] [place] [id number] Not Available [facility] [address] [place] [address], [address], 05/26/2025 14:27:11 12/11/19 25 12/11/2024 CHLAM YDIA TRACH OMATI S AND NEISS ERIA GONOR RHOEA E MOLEC ULAR STUDY neisseria gonorrhoeae PCR Negati ve negati ve This speci men type has not been evalu ated for this metho d. Inter pret resul ts with cauti on. RECTU M Not Available [facility] [address] [place], [address], 05/26/2025 14:27:11 12/11/19 25 12/11/2024 CHLAM YDIA TRACH OMATI S AND NEISS ERIA GONOR RHOEA E MOLEC ULAR STUDY chlamydia trachomatis PCR Negati ve negati ve This speci men type has not been evalu ated for this metho d. Inter pret resul ts with cauti on. RECTU M Not Available [facility] [address] [place] [address], [address], 05/26/2025 14:27:11 12/11/19 25 12/11/2024 CHLAM YDIA TRACH OMATI S AND NEISS ERIA GONOR RHOEA E MOLEC ULAR STUDY .note See Note Origi nal Order ing Provi eliot: NANO Bo MARTAndrea CONNIE [facility] - [address] [facility], [place], [place] [id number] Not Available [facility] [address] [place] [address], [address], 05/27/2025 13:03:03 12/11/19 25 12/11/2024 CHLAM YDIA TRACH OMATI S AND NEISS ERIA GONOR RHOEA E MOLEC ULAR STUDY neisseria gonorrhoeae PCR Negati ve negati ve This speci men type has not been evalu ated for this metho d. Inter pret resul ts with cauti on. THROA T Not Available [facility] [address] [place], [address], 05/27/2025 13:03:03 12/11/19 25 12/11/2024 CHLAM YDIA TRACH OMATI S AND NEISS ERIA GONOR RHOEA E MOLEC ULAR STUDY chlamydia trachomatis PCR Negati ve negati ve This speci men type has not been evalu ated for this metho d. Inter pret resul ts with cauti on. THROA T Not Available [facility] [address] [place] [address], [address], 05/27/2025 13:03:03 12/18/19 25 12/18/2024 TADEO FIBRO SURE( R) PLUS methodology: Commen t The rafa cuco teste d are perfo rmed by Fibro Sure- Speci fic metho ds. Not inten ded for use with other diagn ostic consi derat ions. Not Available [facility] ([facility]) [address] [facility], [place], [address], 12/26/2024 14:06:17 12/18/19 25 12/18/2024 TADEO FIBRO SURE( R) PLUS interpretati ons: Commen t Quant itati ve resul ts of 10 bioch emica ls in combi natio n with age and gende r, are rafa zed using a compu tatio nal algor ithm to provi de a quant itati ve surro gate marke r (0.0- 1.0) of liver fibro sis ([place] vir F0-F4 ), hepat ic steat osis (0.0- 1.0, S0-S3 ), and Non-A lcoho lic Steat o-Hep atiti s (TADEO ) (0.0- 1.0, N0-N3 ), now known as Metab olic Dysfu nctio n-Ass ociat ed Steat ohepa titis (MASH ). The absen ce of steat osis (S<0. 40) precl udes the diagn osis of TADEO/ MASH. Fibro sis marke r: In a study of 171 Non-A lcoho lic Fatty Liver Disea se (NAFL D), now known as Metab olic Dysfu nctio n-Ass ociat ed Steat otic Liver Disea se (MASL D), patie nts where 23% had signi fican t NAFLD /MASL D fibro sis ([place] vir F2-F4 ) and 11% had cirrh osis by liver biops y, a fibro sis resul t of >0.3 yield ed a sensi tivit y of 83% and a speci ficit y of 78% for the detec tion of signi fican t fibro sis.[ 1] Steat osis marke r: In a popul ation of 2997 patie nts, where 61% had signi fican t steat osis (>=5% ) on a liver biops y, a steat osis score >0.4 had a sensi tivit y of 79% and a speci ficit y of 50% for ident ifica tion of signi fican t steat osis. [2] TADEO/ MASH marke r: In a popul ation of 1081 NAFLD /MASL D patie nts, where 51% had at least some TADEO/ MASH by liver biops y, a predi ction of TADEO/ MASH had a sensi tivit y of 72% for ident ifyin g TADEO/ MASH and a speci ficit y of 71%.[ 3] Not Available [facility] ([facility]) [address] [place], [address], 12/26/2024 14:06:17 12/18/1912/18/2024 TADEO FIBRO SURE( R) PLUS fibrosis scoring: Commen t <=0.2 1 = Stage F0 - No fibro sis 0.21 - 0.27 = Stage F0 - F1 0.27 - 0.31 = Stage F1 - Neymar l fibro sis 0.31 - 0.48 = Stage F1 - F2 0.48 - 0.58 = Stage F2 - Bridg ing fibro sis with few septa 0.58 - 0.72 = Stage F3 - Bridg ing fibro sis with many septa 0.72 - 0.74 = Stage F3 - F4 >0.74 = Stage F4 - Cirrh osis Not Available [facility] ([facility]) [address] [place], [address], 12/26/2024 14:06:17 12/18/1912/18/2024 TADEO FIBRO SURE( R) PLUS steatosis scoring Commen t <=0.4 0 = S0 - No Steat osis (<5%) 0.40 - 0.55 = S1 - Mild Steat osis (but Clini kiki Signi fican t) (5-33 %) >0.55 = S2S3- Moder ate to Sever e Steat osis (Clin icall y Signi fican t) (34-1 00%) Not Available [facility] ([facility]) [address] [place], [address], 12/26/2024 14:06:17 12/18/1912/18/2024 TADEO FIBRO SURE( R) PLUS tadeo scoring Commen t <=0.2 5 = N0 - No TADEO/ MASH 0.25 - 0.50 = N1 - Mild TADEO/ MASH 0.50 - 0.75 = N2 - Moder ate TADEO/ MASH >0.75 = N3 - Sever e TADEO/ MASH Not Available [facility] ([facility]) [address] [place], [address], 12/26/2024 14:06:17 12/18/19 25 12/18/2024 TADEO FIBRO SURE( R) PLUS limitations: Commen t TADEO Fibro Sure( R) Plus is recom carolina d for patie nts with suspe cted non-a lcoho lic fatty liver disea se, now known as Metab olic Dysfu nctio n-Ass ociat ed Steat otic Liver Disea se or MASLD . It is not recom carolina d for patie nts with other liver disea ses. It is also not recom carolina d in patie nts with Gilbe rt Disea se, acute hemol ysis, acute viral hepat itis, drug induc ed hepat itis, jayda ic liver disea se, autoi mmune hepat itis and/o r extra -hepa tic james stasi s. Any of these clini lencho situa tions may lead to inacc urate quant itati ve predi ction s of fibro sis. Not Available [facility] ([facility]) [address] [facility], [place], [address], 12/26/2024 14:06:17 12/18/19 25 12/18/2024 TADEO FIBRO SURE( R) PLUS comment: Commen t This test was devel oped and its perfo rmanc e kyle cteri stics deter mined by [facility]. It has not been clear ed or appro glory by the Food and Drug Admin istra tion. For quest ions regar oumar this repor t pleas e conta ct custo nany servi ce at [phone]. Refer ences : 1. Vahe kowalski V. et al. Diagn ostic Value of Bioch emica l Marke rs (Fibr oTest ) for the predi ction of Liver Fibro sis in patie nts with Non-A lcoho lic Fatty Liver Disea se. [facility] Gastr oente rolog y 2006; 6:6. 2. Miar oneal T. et al. The Diagn ostic Perfo rmanc e of a Simpl ified Blood Test (Stea toTes t-2) for the Predi ction of Liver Steat osis. Eur J Gastr oente rol Hepat ol. 2019; 31:39 3-402 . 3. Mira Patel et al. Diagn ostic perfo rmanc e of a new nonin vasiv e test for nonal cohol ic steat ohepa titis using a simpl ified histo logic al refer ence. Eur J Gastr oente rol Hepat ol. 2017; 30:56 9-577 . Not Available [facility] ([facility]) [address] [place], [address], 12/26/2024 14:06:17 12/18/19 25 12/25/2024 TADEO FIBRO SURE( R) PLUS fibrosis score 0.09 0.00-0 .21 Not Available [facility] ([facility]) [address] [place], [address], 12/26/2024 14:06:17 12/18/19 25 12/25/2024 TADEO FIBRO SURE( R) PLUS fibrosis stage Commen t F0 - No fibro sis Not Available [facility] ([facility]) [address] [place], [address], 12/26/2024 14:06:17 12/18/19 25 12/25/2024 TADEO FIBRO SURE( R) PLUS steatosis score 0.32 0.00-0 .40 Not Available [facility] ([facility]) [address] [place], [address], 12/26/2024 14:06:17 12/18/19 25 12/25/2024 TADEO FIBRO SURE( R) PLUS steatosis grade Commen t S0 - No Steat osis (<5%) Not Available [facility] ([facility]) [address] [place], [address], 12/26/2024 14:06:17 12/18/19 25 12/25/2024 TADEO FIBRO SURE( R) PLUS tadeo score 0.00 0.00-0 .25 Not Available [facility] ([facility]) [address] [place], [address], 12/26/2024 14:06:17 12/18/19 25 12/25/2024 TADEO FIBRO SURE( R) PLUS tadeo grade Commen t N0 - No TADEO Not Available [facility] ([facility]) [address] [place], [address], 12/26/2024 14:06:17 12/18/19 25 12/25/2024 TADEO FIBRO SURE( R) PLUS alpha 2-macroglobu ashish, qn 147 mg/dL 110-27 6 Not Available [facility] ([facility]) [address] [place], [address], 12/26/2024 14:06:17 12/18/19 25 12/25/2024 TADEO FIBRO SURE( R) PLUS haptoglobin 90 mg/dL 17-317 Not Available [facility] ([facility]) [address] [place], [address], 12/26/2024 14:06:17 12/18/19 25 12/25/2024 TADEO FIBRO SURE( R) PLUS apolipoprote in A-1 133 mg/dL 101-17 8 Not Available [facility] ([facility]) [address] [place], [address], 12/26/2024 14:06:17 12/18/19 25 12/25/2024 TADEO FIBRO SURE( R) PLUS bilirubin, total 0.6 mg/dL 0.0-1. 2 Not Available [facility] ([facility]) [address] [place], [address], 12/26/2024 14:06:17 12/18/19 25 12/25/2024 TADEO FIBRO SURE( R) PLUS GGT 19 IU/L 0-65 Not Available [facility] ([facility]) [address] [place], [address], 12/26/2024 14:06:17 12/18/19 25 12/25/2024 TADEO FIBRO SURE( R) PLUS ALT (SGPT) p5p 91 IU/L 0-55 above high normal Not Available [facility] ([facility]) [address] [place], [address], 12/26/2024 14:06:17 12/18/19 25 12/25/2024 TADEO FIBRO SURE( R) PLUS AST (SGOT) p5p 36 IU/L 0-40 Not Available [facility] ([facility]) [address] [place], [address], 12/26/2024 14:06:17 12/18/19 25 12/25/2024 TADEO FIBRO SURE( R) PLUS cholesterol, total 272 mg/dL 100-19 9 above high normal Not Available [facility] ([facility]) [address] [place], [address], 12/26/2024 14:06:17 12/18/19 25 12/25/2024 TADEO FIBRO SURE( R) PLUS glucose, serum 93 mg/dL 70-99 Not Available [facility] ([facility]) [address] [place], [address], 12/26/2024 14:06:17 12/18/19 25 12/25/2024 TADEO FIBRO SURE( R) PLUS triglyceride s 73 mg/dL 0-149 Not Available [facility] ([facility]) [address] [place], [address], 12/26/2024 14:06:17 12/18/19 25 12/19/2024 HEPAT IC FUNCT ION PANEL (7) protein, total 7.5 g/dL 6.0-8. 5 normal Not Available [facility] ([facility]) [address] [place], [address], 12/26/2024 14:06:18 12/18/19 25 12/19/2024 HEPAT IC FUNCT ION PANEL (7) albumin 5.0 g/dL 4.3-5. 2 normal Not Available [facility] ([facility]) [address] [facility], [place], [address], 12/26/2024 14:06:18 12/18/19 25 12/19/2024 HEPAT IC FUNCT ION PANEL (7) bilirubin, total 0.6 mg/dL 0.0-1. 2 normal Not Available [facility] ([facility]) [address] [facility], [place], [address], 12/26/2024 14:06:18 12/18/19 25 12/19/2024 HEPAT IC FUNCT ION PANEL (7) bilirubin, direct 0.17 mg/dL 0.00-0 .40 normal Not Available [facility] ([facility]) [address] [place], [address], 12/26/2024 14:06:18 12/18/19 25 12/19/2024 HEPAT IC FUNCT ION PANEL (7) alkaline phosphatase 88 IU/L 44-121 normal Not Available [facility] ([facility]) [address] [facility], [place], [address], 12/26/2024 14:06:18 12/18/19 25 12/19/2024 HEPAT IC FUNCT ION PANEL (7) AST (SGOT) 34 IU/L 0-40 normal Not Available [facility] ([facility]) [address] [facility], [place], [address], 12/26/2024 14:06:18 12/18/19 25 12/19/2024 HEPAT IC FUNCT ION PANEL (7) ALT (SGPT) 72 IU/L 0-44 above high normal Not Available [facility] ([facility]) [address] [place], [address], 12/26/2024 14:06:18 12/18/19 25 12/19/2024 HCV ANTIB MELL hep C virus Ab Non Reacti ve non reacti ve HCV antib mell alone does not diffe renti ate betwe en previ ously resol glory infec tion and activ e infec tion. Equiv ocal and React gilles HCV antib mell resul ts shoul d be follo wed up with an HCV RNA test to suppo rt the diagn osis of activ e HCV infec tion. Not Available [facility] ([facility]) [address] [facility], [place], [address], 12/26/2024 14:06:19 06/13/2006/13/2025 CHLAM YDIA TRACH OMATI S AND NEISS ERIA GONOR RHOEA E MOLEC ULAR STUDY .note See Note Origi nal Order ing Provi eliot: NANO YOUSIF CONNIE [facility] - [address] [facility], [place], [place] [id number] Not Available [facility] [address] [place] [address], [address], 06/14/2025 11:00:11 06/13/20 25 06/13/2025 CHLAM YDIA TRACH OMATI S AND NEISS ERIA GONOR RHOEA E MOLEC ULAR STUDY neisseria gonorrhoeae PCR Negati ve negati ve Not Available [facility] [address] [place] [address], [address], 06/14/2025 11:00:11 06/13/20 25 06/13/2025 CHLAM YDIA TRACH OMATI S AND NEISS ERIA GONOR RHOEA E MOLEC ULAR STUDY chlamydia trachomatis PCR Negati ve negati ve Not Available [facility] [address] [place] [address], [address], 06/14/2025 11:00:11 06/13/20 25 06/13/2025 CHLAM YDIA TRACH OMATI S AND NEISS ERIA GONOR RHOEA E MOLEC ULAR STUDY .note See Note Origi nal Order ing Provi eliot: NANO WALKER Betzy YOUSIF CONNIE [facility] - [address] [facility], [place], [place] [id number] Not Available [facility] [address] [place] [address], [address], 06/14/2025 11:00:12 06/13/20 25 06/13/2025 CHLAM YDIA TRACH OMATI S AND NEISS ERIA GONOR RHOEA E MOLEC ULAR STUDY neisseria gonorrhoeae PCR Negati ve negati ve Not Available [facility] [address] [place], [address], 06/14/2025 11:00:12 06/13/20 25 06/13/2025 CHLAM YDIA TRACH OMATI S AND NEISS ERIA GONOR RHOEA E MOLEC ULAR STUDY chlamydia trachomatis PCR Negati ve negati ve Not Available [facility] [address] [place], [address], 06/14/2025 11:00:12 06/13/20 25 06/13/2025 SARS- COV2- RNA, RSV, FLU A AND B QUALI TATIV E RT-PC R .note See Note Origi nal Order ing Provi eliot: NANO Bo MARTO CONNIE [facility] - [address] [place] [address], [place], [place] [id number] Not Available [facility] [address] [place] [address], [address], 06/14/2025 14:21:27 06/13/2006/13/2025 SARS- COV2- RNA, RSV, FLU A AND B QUALI TATIV E RT-PC R sars cov-2 Not Detect ed not detect ed Discl aimer : The paula r in which this infor matanusha n is used to guide patie nt care is the respo nsibi lity of the [facility] eliot. Testi ng was perfo rmed using the [employer]bot t Al[employer] ty m SARS- CoV-2 test. This test has been autho rized by FDA under an Emerg ency Use Autho rizat ion (EUA) . This test is only autho rized for the durat ion of time the decla ratio n that circu mstan olivia exist justi fying the autho rizat ion of the emerg ency use of in vitro diagn ostic tests for detec tion of SARS- CoV-2 virus and/o r diagn osis of COVID -19 infec tion under secti on 564(b )(1) of the Act, 21 U.S.C . 360bb b-3(b )(1), unles s the autho leni butterfield is termi nated or revok ed soone r. Fact sheet for Healt hcare Provi ders can be found at: https ://[employer] .gov/ media /8030 78/do wnloa d Fact sheet for Patie nts can be found at: https ://[employer] .gov/ media /1370 81/do wnloa d Not Available [facility] [address] [place], [address], 06/14/2025 14:21:27 06/13/20 25 06/13/2025 SARS- COV2- RNA, RSV, FLU A AND B QUALI TATIV E RT-PC R influenza A PCR Not Detect ed not detect ed Not Available [facility] [address] [place] [address], [address], 06/14/2025 14:21:27 06/13/20 25 06/13/2025 SARS- COV2- RNA, RSV, FLU A AND B QUALI TATIV E RT-PC R influenza B PCR Not Detect ed not detect ed Not Available [facility] [address] [place], [address], 06/14/2025 14:21:27 06/13/20 25 06/13/2025 SARS- COV2- RNA, RSV, FLU A AND B QUALI TATIV E RT-PC R RSV PCR Not Detect ed not detect ed Not Available [facility] [address] [place] [address], [address], 06/14/2025 14:21:27 06/13/20 25 06/13/2025 CHLAM YELISAA MYNOR BARBERATI S AND NEISS CARIDADIA KEN CARMONA STUDY .note See Note Origi nal Order ing Provi eliot: NANO YOUSIF CONNIE [facility] - [address] [facility], [place], [place] [id number] Not Available [facility] [address] [place] [address], [address], 06/14/2025 15:10:29 06/13/20 25 06/13/2025 CHLAM YDIA TRACH OMATI S AND NEISS ERIA GONOR RHOEA E MOLEC ULAR STUDY neisseria gonorrhoeae PCR Negati ve negati ve Not Available [facility] [address] [place], [address], 06/14/2025 15:10:29 06/13/20 25 06/13/2025 CHLAM YDIA TRACH OMATI S AND NEISS ERIA GONOR RHOEA E MOLEC ULAR STUDY chlamydia trachomatis PCR Negati ve negati ve Not Available [facility] [address] [place], [address], 06/14/2025 15:10:29 01/09/20 25 01/08/2025 US, abdom en No observ ation record ed. [email or web address] Not Available 2024 11:02:03 Result Notes None recorded. 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 , unspecifi ed; snomeddes cription: Genital herpes simplex; Report Immunity to Registry: Yes; Notes: HSV 2 positive serology 11/2020; Not Available [facility] 4 06:58:47 Gonorrhea of rectum [id number] Active 2021 Gonorrhea of rectum; snomeddes cription: Gonorrhea of rectum; Report Immunity to Registry: Yes; Notes: s/p ceftraixo ne 11/2021 rectal and oral; Not Available [facility] 4 06:58:47 Infection of anus and rectum caused by Neisseria gonorrhoe ae [id number] Active 2021 Gonococca l infection of anus and rectum; snomeddes cription: Gonorrhea of rectum; Report Immunity to Registry: Yes; Notes: s/p ceftraixo ne 11/2021 rectal and oral; Not Available [facility] 4 06:58:48 Fibromyal leroy [id number] Active 2022 Fibromyal leroy; snomeddes cription: Fibromyal leroy; Report Immunity to Registry: Yes; Fibromya lgia; snomeddes cription: Fibromyal leroy; Report Immunity to Registry: Yes; Not Available [facility] 4 06:58:47 Problem Notes None recorded. Medical Equipment None Reported. Medications Name Sig Start Date Stop Date Status Note LastModified by Organization Details LastModified Time multivita min tablet Take 1 tablet by oral route for 30 days, for suppleme nt. 2023 active Not Available Not Available Not Avai lable fluoxetin e 40 mg capsule 40 mg Quantity : 30; Duration : 30; 0 refill(s ) 04/12 completed Duration : 30; VACCINE_ IND: no; Not Available Not Available Not Available amoxicill in 500 mg capsule TAKE 1 CAPSULE BY MOUTH EVERY 8 HOURS UNTIL FINISHED active Not Available Not Available No t Available fluconazo le 100 mg tablet TAKE 1 TABLET BY MOUTH EVERY DAY FOR 14 DAYS active Not Available Not Available No t Available clonidine HCl 0.1 mg tablet HCL 0.1 MG TABLET; Quantity : 120; Duration : 60; 0 refill(s ) 09/30 completed Duration : 60; VACCINE_ IND: no; Not Available Not Available Not Available prednison e 10 mg tablet 10 MG TABLET; Quantity : 15; Duration : 5; 0 refill(s ) 09/30 completed Duration : 5; VACCINE_ IND: no; Not Available Not Available Not Available gabapenti n 600 mg tablet TAKE 1 TABLET BY MOUTH 3 TIMES A DAY active Not Available Not Available No t Available doxycycli ne hyclate 100 mg capsule TAKE 2 CAPSULES BY MOUTH WITHIN 24-72 HOURS AFTER UNPROTEC DAPHNIE SEX active Not Available Not Available No t Available trazodone 50 mg tablet PLEASE SEE ATTACHED FOR DETAILED DIRECTIO NS active Not Available Not Available No t Available lidocaine 5 % topical cream apply a small amount in affected area bid as needed x 3-5 days 09/13 completed Duration : 5; VACCINE_ IND: no; SU_FULL_ NAME: Joseph Kim l; Not Available Not Available Not Available miconazol e nitrate 2 % topical cream APPLY TO THE AFFECTED SKIN/YAHIR L AREA(S) BY TOPICAL ROUTE 2 TIMES PER DAY active Not Available Not Available No t Available ibuprofen 800 mg tablet TAKE 1 TABLET EVERY 6 TO 8 HOURS NEEDED FOR PAIN active Not Available Not Available No t Available ofloxacin 0.3 % eye drops INSTILL 2 DROPS IN BOTH EYES FOUR TIMES A DAY FOR 5 DAYS 12/10 completed Duration : 5; VACCINE_ IND: no; Not Available Not Available Not Available valacyclo vir 1 gram tablet HCL 1 GRAM TABLET; Quantity : 10; Duration : 5; 0 refill(s ) 04/12 completed Duration : 5; VACCINE_ IND: no; Not Available Not Available Not Available prazosin 1 mg capsule TAKE 1 CAPSULE BY MOUTH AT BEDTIME active Not Available Not Available No t Available acyclovir 400 mg tablet TAKE 1 TABLET BY MOUTH 3 TIMES A DAY FOR 10 DAYS active Not Available Not Available No t Available sulfameth oxazole 800 mg-trimet hoprim 160 mg tablet TAKE 1 TABLET BY MOUTH EVERY 12 HOURS FOR 10 DAYS active Not Available Not Available No t Available doxycycli ne monohydra te 100 mg tablet TAKE 1 TABLET BY MOUTH TWICE A DAY FOR 14 DAYS 06/01 completed Not Available Not Available Not Available bupropion HCl 100 mg tablet TAKE 1 TABLET BY MOUTH TWICE A DAY active Not Available Not Available No t Available amoxicill in 875 mg tablet TAKE 1 TABLET BY MOUTH EVERY 12 HOURS UNTIL FINISHED active Not Available Not Available No t Available prednisol one acetate 1 % eye drops,nila pension INSTILL 1 DROP INTO BOTH EYES THREE TIMES A DAY USE FOR 2 WEEKS THEN STOP. active Not Available Not Available No t Available clindamyc in 1 % topical gel APPLY TO ACNE ON FACE TWICE A DAY active Not Available Not Available No t Available amitripty line 10 mg tablet 10MG TAB; Quantity : 120; Duration : 30; 0 refill(s ) active Not Available Not Available No t Available doxycycli ne monohydra te 100 mg capsule TAKE 1 CAPSULE BY MOUTH TWICE A DAY WITH FOOD, FULL GLASS OF WATER AND WEAR SUNSCREE N active Not Available Not Available No t Available erythromy karina 5 mg/gram (0.5 %) eye ointment APPLY 1 CM RIBBON INTO THE CONJUNCT IVAL SAC(S) INTO AFFECTED EYE 3 TIMES A DAY active Not Available Not Available No t Available tacrolimu s 0.1 % topical ointment APPLY TO ITCHY AREAS ON GROIN NEEDED active Not Available Not Available No t Available Cipro 500 mg tablet 500 mg Quantity : 10; Duration : 5; 0 refill(s ) 11/30 completed Frequenc y: bid; Duration : 5; VACCINE_ IND: no; SU_FULL_ NAME: Joseph Julio caraballo; Not Available Not Available Not Available lidocaine 5 % topical patch APPLY TO BACK IN NERVE PAIN AREAS NEEDS TWO PATCHES PER DAY active Not Available Not Available No t Available indometha karina 50 mg capsule TAKE 1 CAPSULE BY MOUTH THREE TIMES A DAY active Not Available Not Available No t Available nystatin- triamcino lone 100,000 unit/g-0. 1 % topical cream APPLY TO AFFECTED AREA TWICE A DAY IN THE MORNING AND IN THE EVENING active Not Available Not Available No t Available hydrocort isone 2.5 % topical cream APPLY TO GROIN TWICE DAILY NEEDED FLARES, DECREASE TO DAILY/EV KATLYN OTHER DAY SYMPTOMS IMPROVE active Not Available Not Available No t Available hydroxyzi ne HCl 25 mg tablet TAKE 1 TABLET BY MOUTH EVERY DAY FOR 90 DAYS 2023 active Not Available Not Available Not Avai lable mupirocin 2 % topical ointment APPLY A SMALL AMOUNT TO AFFECTED AREA 3 TIMES A DAY active Not Available Not Available No t Available epinephri ne 0.3 mg/0.3 mL injection , auto-inje ctor USE DIRECTED FOR ANAPHYLA XIS active Not Available Not Available No t Available ketoconaz ole 2 % topical cream APPLY A THIN LAYER TO RASH IN GROIN AND ON GENITALS TWICE A DAY X4 WEEKS active Not Available Not Available No t Available oxybutyni n chloride 5 mg tablet 5 MG TABLET; Quantity : 14; Duration : 14; 0 refill(s ) 11/30 completed Duration : 14; VACCINE_ IND: no; Not Available Not Available Not Available ondansetr on 4 mg disintegr ating tablet TAKE 1 TABLET BY MOUTH EVERY 8 HOURS NEEDED FOR NAUSEA active Not Available Not Available No t Available fluoxetin e 20 mg capsule 20 mg Quantity : 30; Duration : 30; 0 refill(s ) 11/30 completed Duration : 30; VACCINE_ IND: no; Not Available Not Available Not Available sertralin e 50 mg tablet TAKE ONE AND A HALF TABLET BY MOUTH DAILY 09/30 completed Duration : 30; VACCINE_ IND: no; Not Available Not Available Not Available naproxen 500 mg tablet 500 mg Quantity : 60; Duration : 15; 0 refill(s ) 09/13 completed Frequenc y: qid; Duration : 15; VACCINE_ IND: no; SU_FULL_ NAME: Joseph Kim l; Not Available Not Available Not Available amoxicill in 500 mg-potass ium clavulana te 125 mg tablet TAKE 1 TABLET BY MOUTH EVERY 12 HOURS FOR 14 DAYS active Not Available Not Available No t Available ciclopiro x 0.77 % topical gel APPLY TO AFFECTED AREA TWICE A DAY FOR 14 DAYS active Not Available Not Available No t Available tobramyci n 0.3 %-dexamet hasone 0.1 % eye drops,nila pension 0.3 %-0.1% Quantity : 5; Duration : 10; 0 refill(s ) 09/30 completed Duration : 10; VACCINE_ IND: no; Not Available Not Available Not Available hydroxyzi ne pamoate 25 mg capsule TAKE ONE CAPSULE BY MOUTH TWICE DAILY NEEDED FOR ANXIETY 09/30 completed Duration : 30; VACCINE_ IND: no; Not Available Not Available Not Available Denta 5000 Plus 1.1 % cream BRUSH TWICE A DAY, DO NOT RINSE, EAT, OR DRINK FOR A HALF HOUR 12/10 completed Duration : 30; VACCINE_ IND: no; Not Available Not Available Not Available azithromy karina 500 mg tablet 500 mg Quantity : 2; Duration : 1; 0 refill(s ) 11/30 completed Frequenc y: qd; Duration : 1; VACCINE_ IND: no; SU_FULL_ NAME: Joseph caraballo; Not Available Not Available Not Available cyclospor ine 0.05 % eye drops in a dropperet te INSTILL 1 DROP INTO BOTH EYES TWICE A DAY active Not Available Not Available No t Available escitalop santiago 5 mg tablet 5 MG TABLET; Quantity : 30; Duration : 30; 0 refill(s ) 09/30 completed Duration : 30; VACCINE_ IND: no; Not Available Not Available Not Available tinidazol e 500 mg tablet 500 mg Quantity : 2; Duration : 1; 0 refill(s ) 11/30 completed Frequenc y: qd; Duration : 1; VACCINE_ IND: no; SU_FULL_ NAME: Joseph Kim rashmi; Not Available Not Available Not Available duloxetin e 20 mg capsule,d elayed release TAKE 1 CAPSULE BY MOUTH EVERY DAY active Not Available Not Available No t Available duloxetin e 30 mg capsule,d elayed release TAKE 1 CAPSULE BY MOUTH EVERY DAY active Not Available Not Available No t Available duloxetin e 60 mg capsule,d elayed release TAKE 1 CAPSULE BY MOUTH TWICE A DAY active Not Available Not Available No t Available Menactra (PF) 4 mcg/0.5 mL intramusc ular solution - Quantity : 1; Duration : 1; 0 refill(s ) 01/28 completed Frequenc y: x1; Duration : 1; VACCINE_ IND: no; VACCINE_ NAME: meningoc occal MCV4P; SU_FULL_ NAME: Joseph caraballo; Not Available Not Available Not Available pregabali n 100 mg capsule TAKE 1 CAPSULE BY MOUTH THREE TIMES A DAY active Not Available Not Available No t Available pregabali n 150 mg capsule TAKE 1 CAPSULE BY MOUTH TWICE A DAY FOR PAIN active Not Available Not Available No t Available pregabali n 200 mg capsule TAKE 1 CAPSULE BY MOUTH TWICE A DAY active Not Available Not Available No t Available ceftriaxo ne Quantity : ; 0 refill(s ) 2021 active VACCINE_ IND: yes; SU_FULL_ NAME: Joseph caraballo; VIS_DATE : 18:06:04 .0; Not Available Not Available Not Available diclofena c 1 % topical gel APPLY 2 GRAMS TO THE AFFECTED AREA(S) BY TOPICAL ROUTE 4 TIMES PER DAY 2023 active Not Available Not Available Not Avai lable lacosamid e 50 mg tablet TAKE 1 TABLET BY MOUTH TWICE A DAY active Not Available Not Available No t Available butalbita l-acetami nophen-ca ffeine 50 mg-300 mg-40 mg capsule TAKE 1 CAPSULE BY MOUTH EVERY 4 HOURS NEEDED MIGRAINE S active Not Available Not Available No t Available Antifunga l (miconazo le) 2 % topical powder APPLY TO THE AFFECTED AREA(S) BY TOPICAL ROUTE 2 TIMES PER DAY IN THE MORNING AND EVENING 2023 active Not Available Not Available Not Avai lable Gardasil 9 (PF) 0.5 mL intramusc ular suspensio n 9-valent Quantity : 1; Duration : 1; 3 refill(s ) 01/28 completed Frequenc y: x1; Duration : 1; VACCINE_ IND: no; VACCINE_ NAME: HPV9; SU_FULL_ NAME: Joseph caraballo; Not Available Not Available Not Available Trintelli x 10 mg tablet TAKE 1 TABLET DAILY active Not Available Not Available No t Available Trintelli x 20 mg tablet TAKE 1 TABLET BY MOUTH EVERY DAY active Not Available Not Available No t Available Biktarvy 50 mg-200 mg-25 mg tablet TAKE 1 TABLET BY MOUTH EVERY DAY 2024 active Not Available Not Available Not Avai lable Cequa 0.09 % eye drops in a dropperet te PLACE 1 DROP IN EACH EYE TWICE DAILY active Not Available Not Available No t Available Dupixent 300 mg/2 mL subcutane ous pen injector INJECT 1 PEN (300MG) UNDER THE SKIN EVERY OTHER WEEK active Not Available Not Available No t Available Eysuvis 0.25 % eye drops,nila pension SHAKE BOTTLE THEN INSTILL 1 DROP INTO BOTH EYES 4 TIMES A DAY FOR 2 WEEKS WHILE SYMPTOMS OCCUR. active Not Available Not Available No t Available Sodium Fluoride 5000 Dry Mouth 1.1 % dental paste active Not Available Not Available Not Available Opzelura 1.5 % topical cream APPLY TO AFFECTED AREA TWICE A DAY active Not Available Not Available No t Available Journavx 50 mg tablet TAKE 2 TABLETS ONCE, AFTER 12 HRS OF LOADING DOSE, TAKE 1 TAB EVERY 12 HRS active Not Available Not Available No t Available Vitals Date Recorded Body height Heart rate Respiratory rate Body temperature Body mass index (BMI) Body weight Systolic And Diastolic Provider Name and Address Organization Details Last Updated DateTime 5 175.26 cm 93 /min 12 /min 98.3 [degF] 25.7 kg/m2 84459.0 7 g 130/80 mm[Hg] Melissa ROBLES MD [facility] 5 10:50:15 Date Recorded Body height Provider Name an d Address Organization Details Last Updated DateTime 06/13/2025 175.26 cm Yadira ROBLES MD [facility] 06/13/2025 15:01:26 Date Recorded Body height Heart rate Respiratory rate Body temperature Body mass index (BMI) Body weight Oxygen saturation Oxygen saturation in Arterial blood by Pulse oximetry Systolic And Diastolic Provider Name and Address Organization Details Last Updated DateTime 4 175.26 cm 96 /min 10 /min 98.6 [degF] 25.4 kg/m2 04404.8 9 g 97 % 97 % 116/80 mm[Hg] Yadira ROBLES MD [facility] 4 14:44:24 Date Recorded Body height Respiratory rate Body temperature Body mass index (BMI) Body weight Systolic And Diastolic Provider Name and Address Organization Details Last Updated DateTime 4 175.26 cm 10 /min 99.7 [degF] 25.4 kg/m2 65707.8 9 g 100/78 mm[Hg] Yadira ROBLES MD [facility] 4 14:10:26 Social History None recorded. Functional Status None recorded. Mental Status None recorded. Family History Nothing Reported. Medical History No medical history recorded. Past Encounters Encounter ID Performer Location Encounter Start Date Encounter Closed Date Diagnosis/Indication Diagnosis SNOMED-CT Code Diagnosis ICD10 Code Diagnosis IMO Codes Diagnosis Note [id number] Joseph Robles MD Main Office [address] [place] [address], [place] [address] 09/29/2023 15:16:29 09/29/2023 16:17:23 Human immunodeficiency virus infection 48212997 B20 HIV.Contin ue Biktarvy 1 tab po qd. Strict compliance reviewed to keep viral suppressio n, prevent viral resistance and prevent transmissi on. pt aware of new tx options such as monoclonal AB/long acting agents/cli nical trial options. consent provided. questions and concerns reviewed.U =U reviewed. condom use to prevent STI's STI prevention .pt aware of PreP availabili ty.3 site STI screening: GC/chlamyd ia.labsvac cine recommende d such as COVID19 and flu.pt aware of PreP availabili ty. U=U. condom use to prevent STI's.Plan of care reviewed. Questions and concerns addressed [id number] Joseph Robles MD Main Office [address] [place] [address] 12/29/2023 13:36:03 12/29/2023 15:28:05 Human immunodeficiency virus infection 24283099 B20 HIV.Contin ue Biktarvy 1 tab po qd.labspt aware of PreP availabili ty. U=U. condom use to prevent STI's.Plan of care reviewed. Questions and concerns addressed Adult heal th examination 901251472 Z00.00 requests the test. Risk of ex posure to communicable disease 400440143 Z20.2 DoxyPeP.pt interested in Doxycyclin e for prevention of bacterial STI's.Inst ructions on correct use reviewed. no more than 2 doses per day.condom use reviewed.p t aware of PreP availabili ty3 site testing GC/chla,yd ia done. [id number] Joseph Robles MD Main Office [address] [place] [address], [place] [address] 03/28/2024 12:55:25 03/28/2024 13:43:36 Human immunodeficiency virus infection 55482240 B20 HIV.Contin ue Biktarvy 1 tab po qd.labspt aware of PreP availabili ty. U=U. condom use to prevent STI's.Plan of care reviewed. Questions and concerns addressed Risk of ex posure to communicable disease 985280274 Z20.2 DoxyPeP.pt interested in Doxycyclin e for prevention of bacterial STI's.Inst ructions on correct use reviewed. no more than 2 doses per day.condom use reviewed.p t aware of PreP availabili ty3 site testing GC/chla,yd ia done. Folliculitis 95506251 L7 3.9 bacterial and viral cultures obtained. scrotummup irocin cream bid x 7 days; Pt has prescripti on at homeawait culture resultsto call if worsening sx. [id number] Joseph Robles MD Main Office [address] [place] [phone] 04/15/2024 14:38:57 04/15/2024 15:01:31 Human immunodeficiency virus infection 86597819 B20 HIV.Contin ue Biktarvy 1 tab po qd.labspt aware of PreP availabili ty. U=U. condom use to prevent STI's.Plan of care reviewed. Questions and concerns addressed Risk of ex posure to communicable disease 430531090 Z20.2 DoxyPeP.pt interested in Doxycyclin e for prevention of bacterial STI's.Inst ructions on correct use reviewed. no more than 2 doses per day.condom use reviewed.p t aware of PreP availabili ty3 site testing GC/valeri,yd ia done. Folliculitis 94050152 L7 3.9 Klebsiella s/p Bactrim ds 1 bid x 10 days.ingui nal rash itchi; probably fungal.mark terial and viral cultures obtained. scrotummup irocin cream bid x 7 daysnystat in/triamci nolone bidto call if not imrpoved [id number] Joseph Robles MD Main Office [address] [place] [phone] 05/06/2024 15:26:22 05/06/2024 15:48:46 Human immunodeficiency virus infection 71861136 B20 HIV.Contin ue Biktarvy 1 tab po qd.pt aware of PreP availabili ty. U=U. condom use to prevent STI's.Plan of care reviewed. Questions and concerns addressed Risk of ex posure to communicable disease 779462980 Z20.2 DoxyPeP.on Doxycyclin e PRN for prevention of bacterial STI's.Inst ructions on correct use reviewed. no more than 2 doses per day.condom use reviewed. Pruritic rash 85234859 L 28.2 pt has appointmen mt with Dermatolog y on Jun: Dr Traiq.has tried bactrim for klebsiella , DOxycyclin e, mupirocin, antifungal cream and powder, and steroid cream with minimal results.F/ U culture swab negative for bacteria/f ungal/oral antifungal qd. he feels powder helped the best but no reoslution , so will try oral.hydro xyzine qd. watch for sedation. [id number] Joseph Robles MD Main Office [address] [place] [address] 07/19/2024 14:35:56 07/19/2024 15:16:54 Human immunodeficiency virus infection 80222282 B20 HIV.Contin ue Biktarvy 1 tab po qd.pt aware of PreP availabili ty. U=U. condom use to prevent STI's.Plan of care reviewed. Questions and concerns addressed Risk of ex posure to communicable disease 974333560 Z20.2 DoxyPeP.on Doxycyclin e PRN for prevention of bacterial STI's.Inst ructions on correct use reviewed. no more than 2 doses per day.condom use reviewed. Fibromyalgia 359973224 M 79.7 neuropathy will go to pelvic pain clinic in [facility] [id number] Joseph Robles MD Main Office [address] [place] [address] 10/18/2024 13:56:36 10/18/2024 14:21:51 Human immunodeficiency virus infection 16827835 B20 HIV.Contin ue Biktarvy 1 tab po qd.clinica l trial options reviewedpt aware of 2 drug regimensva ccines reviewedde clines 3 site testing todaypt aware of PreP availabili ty. U=U. condom use to prevent STI's.Plan of care reviewed. Questions and concerns addressed Risk of ex posure to communicable disease 298593096 Z20.2 DoxyPeP.on Doxycyclin e PRN for prevention of bacterial STI's.Inst ructions on correct use reviewed. no more than 2 doses per day.condom use reviewed. Intertrigo 15859691 L30. 4 culture obtained: scrotal area.hydra tion/skin moisturize r Conjunctivitis 5745771 H 10.9 culture obtained.t o tx if positive infection [id number] Joseph Robles MD Main Office [address] [place] [phone] 12/11/2024 10:39:36 12/11/2024 13:13:17 Dysuria 78907584 R30.0 u/a and u/cSTI Panel.will tx based on results.to ER If worsening; to call if worsening. Human immunodeficiency virus infection 27330316 B20 HIV.Contin ue Biktarvy 1 tab po qd.clinica l trial options reviewedpt aware of 2 drug regimensva ccines reviewedde clines 3 site testing todaypt aware of PreP availabili ty. U=U. condom use to prevent STI's.Plan of care reviewed. Questions and concerns addressed Risk of ex posure to communicable disease 322529426 Z20.2 DoxyPeP.on Doxycyclin e PRN for prevention of bacterial STI's.Inst ructions on correct use reviewed. no more than 2 doses per day.condom use reviewed. Onychomyco sis of toenails 629911092 B35.1 Augmentin x 14 days.no allergiesc orrect use reviewedpo tetnial side effects [id number] Joseph Robles MD Main Office [address] [place] [phone] 06/13/2025 14:47:04 06/13/2025 15:44:08 Human immunodeficiency virus infection 96065995 B20 HIV.Contin ue Biktarvy 1 tab po qd.labspt aware of PreP availabili ty. U=U. condom use to prevent STI's.Plan of care reviewed. Questions and concerns addressed Risk of ex posure to communicable disease 671764257 Z20.2 DoxyPeP.on Doxycyclin e PRN for prevention of bacterial STI's.Inst ructions on correct use reviewed. no more than 2 doses per day.condom use reviewed. Upper resp iratory infection 85139165 J06.9 [id number] sx improvedvi ral panel sample obtainedca ll if worsening sx such as productive cough, fever or other Health Concerns Section Related Observation LastModified by Organization Detai ls LastModified Time None Recorded Concern Status LastModified by Organization Details LastModified Time None Recorded Advance Directives Directive None Recorded Payers Insurance Date Sequence Insurance Name Policy Number Policy Shelton Covered Member ID Shelton Member ID Guarantor Name 06/13/2025 1 BS-DC: [facility] ([facility] [place], [place]) [id number] Mic Inman [id number] Casper Kelley Viralberkleyjonna 06/13/2025 2 MEDICAID-[place]: [facility] Casper Inman [id number] Casper Inman Notes Date Note Type Note Provider Name and Address Organization Details Recorded Time 4 text/html ROS as noted in the HPI HIVon Biktravy 1 tab po qd.taking dailycompliantdenies missing doses.sexually active. no STI sx;labs reviewed.no new meds03/13/2024 HIV VL nondetected; CD4 990-1000; ALT/AST wnl; eGFR>100; neg quantiferon; no syphilisgenital scrotal culture negative; no HCV; no HBV09/2023 HIV VL nondetected; AST/ALT wnl; HCV ab neg; GC/chlamydia03/2023 HIV VLnondetected; VS4=631; no syphilis; HBV neg; HCV neg; eGFR>90;AST 46; ALT 11906/2022 HIV VL Nondetected; CD4= 1112; no syphilis; HBV and HCV neg; neg GC/chlamydia; no DM. TSHhas not been sick since he was last seenstable weight 03/28/24 folliculitis groin/scrotal/penile area.0 klebsiella. took Bactrim bid on 04/01/2024 x 10 daysimproved; has then developed inguinal/scrotal rash which is itchi. took topical antifungal and steroid, and mupirocin with ongoing sx. tried powder which helped, but sx recurred. has an appointment w Dr Osullivan's office: Dermatology on Jun 20, but he would like to be seen before then.no worsening. no new sx. no genital discharge.GC/chlamydia neg pt called. unable to come in due transportation. Joseph Robles MD [address] [place] [address], [phone], CHARLES ROBLES MD [facility] 05/06/2024 17:07:34 4 text/html ROS as noted in the HPI HIVon Biktravy 1 tab po qd.taking dailycompliantdenies missing doses.sexually active. no STI sx;labs reviewed.no new meds03/13/2024 HIV VL nondetected; CD4 990-1000; ALT/AST wnl; eGFR>100; neg quantiferon; no syphilisgenital scrotal culture negative; no HCV; no HBV09/2023 HIV VL nondetected; AST/ALT wnl; HCV ab neg; GC/chlamydia03/2023 HIV VLnondetected; II8=446; no syphilis; HBV neg; HCV neg; eGFR>90;AST 46; ALT 11906/2022 HIV VL Nondetected; CD4= 1112; no syphilis; HBV and HCV neg; neg GC/chlamydia; no DM. TSHno worsening. no new sx. no genital discharge.GC/chlamydia neg pregabalin. neuropathyMRI lumbar spine next week.has seen PMR and PCP. PMR did not offer pain management solutions.will be evaluated at pelvic clinic in [place] for chronic Pelvic pain.dupixent injection by dermatology: biopsy eczema Joseph Robles MD [address] [place] [address], [phone], CHARELS ROBLES MD [facility] 07/21/2024 20:10:20 4 text/html ROS as noted in the HPI HIVon Biktravy 1 tab po qd.taking dailycomplianttolerates tx welldenies missing doses.not sexually active. no STI sx; declines 3 site testing todaylabs reviewed.no new meds1 HIV VL nondetected; CD 4 1206 AST/ALT wnl; RPR 1:1 treponemal abd NR; HCV neg; e GFR 104;03/13/2024 HIV VL nondetected; CD4 990-1000; ALT/AST wnl; eGFR>100; neg quantiferon; no syphilisgenital scrotal culture negative; no HCV; no HBV09/2023 HIV VL nondetected; AST/ALT wnl; HCV ab neg; GC/chlamydiadupixent injection by dermatology: biopsy eczema he reports will be on low dose naltrexone prescribed by pelvic pain specialist seen at the [facility]. Deshawn Andrews see Neurologist in [place] as well.ketamine clinic.will be seen by pain psychologist Joseph Robles MD [address] [place] [address], [phone], CHARLES ROBLES MD [facility] 10/18/2024 21:45:04 5 text/html ROS as noted in the HPI HIVon Biktravy 1 tab po qd.taking dailycomplianttolerates tx welldenies missing doses.labs reviewed.no new meds 08/2024 HIV VL nondetected; CD 4 1206 AST/ALT wnl; RPR 1:1 treponemal abd NR; HCV neg; e GFR 104;03/13/2024 HIV VL nondetected; CD4 990-1000; ALT/AST wnl; eGFR>100; neg quantiferon; no syphilisgenital scrotal culture negative; no HCV; no HBV dupixent injection by dermatology for eczema (on biopsy) per his report.seen at pelvic pain specialist seen at the [facility]. Deshawn Andrews see Neurologist in [place] as well.seen or will be seen at ketamine clinic.will be seen by pain psychologist noticing dark color urine, and discomfort for 2 days. no back pain. no fever. no chills. no discharge2 sexual encounters a month ago; and 4 days; sx started 3 days ago. no jaundice. no diarrhea. no constipation. no frequency.no rash. no discharge. no use of 'DOxyPEP' also has toe nail infection for few days; son discharge. nail cutting. swollen and red Joseph Robles MD [address] [place] [address], [phone], CHARLES ROBLES MD [facility] 12/21/2024 18:33:32 5 text/html ROS as noted in the HPI HIVon Biktravy 1 tab po qd.taking dailycomplianttolerates tx welldenies missing doses.labs reviewed.no new medsdupixent injection by dermatology for eczema (on biopsy) per his report.pelvic pain specialist [facility]. Deshawn Neuropathy feels good.no rash. no discharge. no STI sx. has DOXYPEP prescription [facility] has used as neededsexually active; willing to get GC/chlamydia swabswants to get tested for COVID19; was sick about 2 weeks ago; sx imporved, but still feels tired. currently no cough, no fever, no SOB. nail infection resolved. 11/2024 and 12/2024 HCV neg; AST/ALt wnl; JL6=465; HIV Vl nondetceted; HBV s ag neg; urine culture neg ; wound culture neg; eGFR>6008/2024 HIV VL nondetected; CD 4 1206 AST/ALT wnl; RPR 1:1 treponemal abd NR; HCV neg; e GFR 104;03/13/2024 HIV VL nondetected; CD4 990-1000; ALT/AST wnl; eGFR>100; neg quantiferon; no syphilis Joseph Robles MD [address] [place] [address], [phone], CHARLES - JOSEPH ROBLES MD [facility] 06/16/2025 17:24:26
--- OUTSIDE RECORDS SUMMARY | 2025-09-02 12:13 | XMS_ITS | Encounter Summary ---
Author Organization [facility] Address [address] [place] [address] Phone Care Team Providers Care Toolroom Keeper Name Role Phone Blanco Webster MD Primary Care Provider [phone] Encounter Details Date Type Department Care Team (Late st Contact Info) Description 04/18/2013 Documentation [facility] [address] [place], [place] [id number] Family Medicine, Physician [address] [place] [address] Social History Tobacco Use Types Packs/Day Years [...] on filedocumented in this encounter Care Teams Toolroom Keeper Relationship Specialty Start Date End Date Blanco Webster MD [address] [place] [address] [place] [address] PCP - General 03/21/18 documented as of this encounter
--- OUTSIDE RECORDS SUMMARY | 2025-09-02 12:13 | XMS_ITS | Clinical Summary ---
Author Organization [facility] Address [address] [place] [address] Phone Care Team Providers Care Engineering Professor Name Role Phone Blanco Webster MD Primary Care Provider [phone] Social History Tobacco Use Types Packs/Day Years [...] age to complete this topic Care Teams Engineering Professor Relationship Specialty Start Date End Date Blanco Webster MD [facility] [place] [address] PCP - General 03/21/18
--- OUTSIDE RECORDS SUMMARY | 2025-09-02 12:13 | XMS_ITS | Clinical Summary ---
Author Organization [facility] Address [address] [place] [address] Phone Care Team Providers Care Family Court Justice Name Role Phone Jose Guadalupe Vargas MD Primary Care Provider [phone] Jose Guadalupe Vargas MD Unavailable [phone] Social History Tobacco Use Types Packs/Day Years Used Date Smoking Tobacco: Never Assessed Sex and Gender Information Value Date Recorded Sex Assigned at Not on file Legal Sex Male 7:37 PM EDT Gender Identity Not on file Sexual Orientation Not on file Plan of Treatment Not on file Care Teams Family Court Justice Relationship Specialty Start Date End Date Jose Guadalupe Vargas MD [address] [place] [address] PCP - General 10/01/08 Jose Guadalupe Vargas MD [address] [place] [address] PCP - Insurance PCP 10/01/08
== END 2025-09-02 11:16 | disposition home or self-care (01) ==
LOC: HO.HOP 10:19
PROVIDERS: Visit Provider Counselor Mental Health
DX: F41.1 Generalized anxiety disorder (principal); F33.1 Major depressive disorder, recurrent, moderate; F43.9 Reaction to severe stress, unspecified
CPT/HCPCS: 90834

== ENCOUNTER 2025-09-09 10:19 | Outpatient (AMB) | payer BC, MEDICAID, SELFPAY ==
--- OUTSIDE RECORDS SUMMARY | 2025-09-09 05:38 | XMS_ITS ---
[...] and/or family 10 minutes or less CHARLI [facility] Medicine Note signed at: 2025-08-31 23:03:17 -0700 HIV infection Active Family History Heart disease Social History Social History Observation Description Dates Observed Smoking Status Unknown if ever smoked Social Data No Known Social Data Immunizations Vaccine Date Status Unknown immunization status 09/09/2025 Comp leted Plan of Treatment Health Screenings Date Goal Action Comments August 21, 2025 Depression screening PHQ-2 Insurance Providers Payer name Policy type / Coverage type Policy ID Covered green party ID Policy [facility] [id number] Self Notes * Video Encounter - 08/31/2025 SUBJECTIVE: Rema Cortez PA-C Supervising Physicians: Oscar Cardenas DO Patient Location: [place] Current time: 1:53 AM EDT Pt confirmed [...]
--- NOTE | 2025-09-09 10:20 | A.OFFWM_ITS ---
Intake Intake Visit Reasons: VIDEO OP Therapy Allergies ciclopirox Allergy (Intermediate, Verified 10/27/24 10:56) Rash gluten Adverse Reaction (Mild, Verified 10/27/24 16:52) Itching lactose Adverse Reaction (Mild, Verified 10/27/24 16:52) Itching PFSH Medical History Chronic pelvic pain in male Cyst of epididymis Testicular pain, left Scrotal pain Trauma and stressor-related disorder Major depressive disorder, recurrent episode Generalized anxiety disorder HIV (human immunodeficiency virus infection) Social History Comment: Alcohol occasional Substance Use Type: Marijuana Sexual orientation: Lesbian/Saenz/Homosexual Gender identity: Male Behavioral Health Assessment Weight Management Therapy Therapy Notes Details Subjective: The patient reports improvement in pain symptoms since starting Dupixent. He continues to attend weekly physical therapy sessions focused on pelvic floor rehabilitation. The patient discontinued vortioxetine hydrobromide (Trintellix) due to gastrointestinal side effects. He received a ketamine treatment last Monday. Objective: The patient presented for a follow-up behavioral health visit via telehealth. Functioning and daily routines were discussed in detail. The PHQ-9 was administered, with a total score of 5, indicating mild depressive symptoms. CBT- based interventions were utilized, focusing on problem-solving strategies for managing daily routines and coping with pain. The patient was guided through identifying barriers to effective pain management and collaboratively developed practical solutions, such as pacing activities, using relaxation techniques, and integrating scheduled breaks. Psychoeducation was provided regarding the impact of chronic pain on mood and functioning. The patient was encouraged to continue utilizing behavioral activation strategies and to monitor the relationship between activity levels, pain, and mood. Assessment/Response: * Mental status: The patient was alert and oriented, with appropriate affect and logical thought processes. He reported improved pain but some ongoing mild mood symptoms. No evidence of psychosis or cognitive impairment. * Risk reported/identified: The patient denied suicidal or homicidal ideation, intent, or plan. No acute safety concerns were identified. Questionnaires PHQ-9 Over the last 2 weeks, how often have you been bothered by any of the following problems? 1. Little interest or pleasure in doing things: several days 2. Feeling down, depressed, or hopeless: several days 3. Trouble falling or staying asleep, or sleeping too much: not at all 4. Feeling tired or having little energy: not at all 5. Poor appetite or overeating: several days 6. Feeling bad about yourself - or that you are a failure or have let yourself or your family down: several days 7. Trouble concentrating on things, such as reading the newspaper or watching television: not at all 8. Moving or speaking so slowly that other people could have noticed. Or the opposite - being so fidgety or restless that you have been moving around a lot more than usual: not at all (Always a fidgety person.) 9. Thoughts that you would be better off or of hurting yourself in some way: several days (Pt reports been thinking about euthanasia. Denies a plan. ) Total score: 5 Depression Screening Interpretation: Positive Depression Screening Done: Yes 22998 - PHQ-9 Billing: Yes Source: Developed by Drs. Chilango Melton, Martita Mon, Gael Ashley and colleagues, with an educational jose angel from [employer]. Assessment & Plan Assessment & Plan (1) Generalized anxiety disorder: Code(s): F41.1 - Generalized anxiety disorder (2) Major depressive disorder, recurrent episode: Code(s): F33.9 - Major depressive disorder, recurrent, unspecified Qualifiers: Major depression episode severity: moderate Qualified Code(s): F33.1 - Major depressive disorder, recurrent, moderate (3) Trauma and stressor-related disorder: Code(s): F43.9 - Reaction to severe stress, unspecified Plan Continue with weekly sessions to monitor mood, pain management, and adjustment to medication changes. Reinforce CBT and problem-solving strategies. * Next appointment scheduled for 09/16/2025 at 10:00 am via video. Telehealth Telehealth Telehealth Platform: [facility] Location of provider rendering services: other (Home office. [place], [place]) Location of patient: address on file Patient Identification confirmed using: Name, : Yes Telehealth method: video Patient verbally consented to treatment: Yes Patient verbally consented to billing insurance company: Yes Patient informed of any privacy concerns related to visit: Yes Minutes spent on Phone/Video with Pt.: 55 C[place] [address] Tele Psytx >53 mins Patient Type Established Diagnoses Generalized anxiety disorder F41.1 Moderate episode of recurrent major depressive disorder F33.1 Major depression episode severity: moderate Trauma and stressor-related disorder F43.9 Additional Codes PHQ-9 - 56735 - PHQ-9 Billing: Yes ([id number]) Time Spent (min) 55
--- OUTSIDE RECORDS SUMMARY | 2025-09-09 12:38 | XMS_ITS | Encounter Summary ---
Author Organization [facility] Address [address] [place] [address] Care Team Providers Care Stamping Die Maker Name Role Phone Dominik Moses MD Primary Care Provider Encounter Details Date Type Department Care Team (Late st Contact Info) Description 10/18/[address] [facility] - Main Lab [address] [place] [address] Gissel Vasquez MD [address] [place] [address] Unspecified conjunctivitis Social History Tobacco Use Types [...] No pathogens isolated. 10/21/2024 10:51 AM EST [facility] Gram Stain Result No polymorphonuclear leukocytes, No epithelial cells, and No organisms noted 10/21/2024 10:51 AM EST [facility] Swab 10/18/2024 10/18/2024 8:0 7 PM EST us Gissel Vasquze MD LAB MICROBIOLOGY - GENERA L ORDERABLES Final Result [facility] [address] [place] [address], documented in this encounter Visit Diagnoses Diagnosis Unspecified conjunctivitis documented in this encounter Additional Health Concerns Infection Onset Date Last Indicated Resolved Time Respiratory Rule-Out 06/13/2025 06/13/2025 025 2:20 PM EDT documented as of this encounter Care Teams Stamping Die Maker Relationship Specialty Start Date End Date Dominik Moses MD [address] [facility] [address] [place], [place] PCP - General Pediatrics 08/27/21 documented as of this encounter
--- OUTSIDE RECORDS SUMMARY | 2025-09-09 12:38 | XMS_ITS | Encounter Summary ---
Author Organization [facility] Address [address] [place] [address] Phone Care Team Providers Care Agricultural Education Teacher Name Role Phone Blanco Webster MD Primary Care Provider [phone] Encounter Details Date Type Department Care Team (Late st Contact Info) Description 04/18/2013 Documentation [facility] Family Medicine [address] [place], [place] [id number] Family Medicine, Physician [address] [place] [address] Social History Tobacco Use Types Packs/Day Years [...] on filedocumented in this encounter Care Teams Agricultural Education Teacher Relationship Specialty Start Date End Date Blanco Webster MD [address] [place] [address] [place] [address] PCP - General 03/21/18 documented as of this encounter
--- OUTSIDE RECORDS SUMMARY | 2025-09-09 12:39 | XMS_ITS | Encounter Summary ---
Author Organization [facility] Address [address] [place] [address] Care Team Providers Care Service And Repair Supervisor Name Role Phone Dominik Moses MD Primary Care Provider Encounter Details Date Type Department Care Team (Late st Contact Info) Description 10/18/2024 Lab Requisition [facility] - Main Lab [address] [place] [address] Gissel Vasquez MD [address] [place] [address] Erythema intertrigo Social History Tobacco Use Types [...] 10/21/2024 10:53 AM EST [facility] Swab Urethral structure / Unknown 10/18/2024 10/18/2024 8:11 PM EST us Gissel Vasquez MD LAB MICROBIOLOGY - GENERA L ORDERABLES Final Result [facility] [address] [place] [address], documented in this encounter Visit Diagnoses Diagnosis Erythema intertrigo Other specified erythematous condition documented in this encounter Additional Health Concerns Infection Onset Date Last Indicated Resolved Time Respiratory Rule-Out 06/13/2025 06/13/2025 025 2:20 PM EDT documented as of this encounter Care Teams Service And Repair Supervisor Relationship Specialty Start Date End Date Dominik Moses MD [address] [facility] [address] [place], [place] PCP - General Pediatrics 08/27/21 documented as of this encounter
--- OUTSIDE RECORDS SUMMARY | 2025-09-09 12:39 | XMS_ITS | Clinical Summary ---
Author Organization [facility] Address [address] [place] [address] Phone Care Team Providers Care Plant Quality Manager Name Role Phone Blanco Webster MD Primary Care Provider [phone] Social History Tobacco Use Types Packs/Day Years [...] age to complete this topic Care Teams Plant Quality Manager Relationship Specialty Start Date End Date Blanco Webster MD [employer] [facility] [place] [address] PCP - General 03/21/18
--- OUTSIDE RECORDS SUMMARY | 2025-09-09 12:39 | XMS_ITS | Encounter Summary ---
Author Organization [facility] Address [address] [place] [address] Care Team Providers Care Moss Gatherer Name Role Phone Dominik Moses MD Primary Care Provider Encounter Details Date Type Department Care Team (Latest Contact Info) Description 12/11/2024 Lab Requisition [facility] - Main Lab [address] [place] [address] Gissel Vasquez MD [address] [place] [address] Contact with and (suspected) exposure to infections [...] of transmission Human immunodeficiency virus (HIV) disease ([facility]) URINALYSIS WITH REFLEX MICROSCOPIC Routine 12/11/2024 12:00 AM EST Contact with and (suspected) exposure to infections with a predominantly sexual mode of transmission Human immunodeficiency virus (HIV) disease ([facility]) CHLAMYDIA TRACHOMATIS AND NEISSERIA GONORRHOEAE PCR Routine 12/11/2024 12:00 AM EST Contact with and (suspected) exposure to infections with a predominantly sexual mode of transmission Human immunodeficiency virus (HIV) disease ([facility]) CHLAMYDIA TRACHOMATIS AND NEISSERIA GONORRHOEAE PCR Routine 12/11/2024 12:00 AM EST Contact with and (suspected) exposure to infections with a predominantly sexual mode of transmission Human immunodeficiency virus (HIV) disease ([facility]) CHLAMYDIA TRACHOMATIS AND NEISSERIA GONORRHOEAE PCR Routine 12/11/2024 12:00 AM EST Contact with and (suspected) exposure to infections with a predominantly sexual mode of transmission Human immunodeficiency virus (HIV) disease ([facility]) CULTURE WOUND DEEP Routine 12/11/2024 12 :00 AM EST Contact with and (suspected) exposure to infections with a predominantly sexual mode of transmission Human immunodeficiency virus (HIV) disease ([facility]) documented in this encounter Results * (ABNORMAL) Urinalysis with reflex microscopic (12/11/2024 12:00 AM EST) Specific [place] Urine 1.026 1.003 - 1.030 LAB URINALYSIS - AUTOMATED METHOD 12/11/2024 7:38 PM [facility] pH, Urine 5.5 5.0 - 8.0 pH LAB URINALYSIS - AUTOMATED METHOD 12/11/2024 7:38 PM [facility] Leukocytes, Urine Trace(A) Negative LAB URINALYSIS - AUTOMATED METHOD 12/11/2024 7:38 PM [facility] Nitrite, Urine Negative Negative LAB URINALYSIS - AUTOMATED METHOD 12/11/2024 7:38 PM [facility] Protein, Urine Trace <=Trace mg/dL LAB URINALYSIS - AUTOMATED METHOD 12/11/2024 7:38 PM [facility] Glucose, Urine Negative Negative mg/dL LAB URINALYSIS - AUTOMATED METHOD 12/11/2024 7:38 PM [facility] Ketones, Urine 15(A) Negative mg/dL LAB URINALYSIS - AUTOMATED METHOD 12/11/2024 7:38 PM [facility] Urobilinogen, Urine 1.0 0.2 - 1.0 mg/dL LAB URINALYSIS - AUTOMATED METHOD 12/11/2024 7:38 PM [facility] Bilirubin, Urine Negative Negative LAB URINALYSIS - AUTOMATED METHOD 12/11/2024 7:38 PM [facility] Blood, Urine Negative Negative LAB URINALYSIS - AUTOMATED METHOD 12/11/2024 7:38 PM [facility] RBC, Urine 4.7(H) 0 - 4 /HPF LAB URINALYSIS - AUTOMATED METHOD 12/11/2024 7:38 PM [facility] WBC, Urine 0.0 0 - 4 /HPF LAB URINALYSIS - AUTOMATED METHOD 12/11/2024 7:38 PM [facility] Squamous Epithelial, Urine 3 0 - 60 /LPF LAB URINALYSIS - AUTOMATED METHOD 12/11/2024 7:38 PM [facility] Bacteria, Urine Negative Negative /HPF LAB URINALYSIS - AUTOMATED METHOD 12/11/2024 7:38 PM [facility] Hyaline Casts, Urine 0.0 0 - 3 /LPF LAB URINALYSIS - AUTOMATED METHOD 12/11/2024 7:38 PM [facility] Urine Urine specimen obtained by clean catch procedure / Unknown 12/11/2024 12/11/2024 7:25 PM EST us Gissel Vasquez MD LAB URINE ORDERABLES Mohini caraballo Result [facility] [address] [place] [address], [place] [phone] * Chlamydia trachomatis and Neisseria gonorrhoeae molecular study (12/11/2024 12:00 AM EST) Neisseria gonorrhoeae PCR Negative Negative LAB MOLECULAR DIAGNOSTICS METHOD 05/26/2025 1:56 PM EDT [facility] Comment: This specimen type has not been evaluated for this method. Interpret results with caution. RECTUM Chlamydia trachomatis PCR Negative Negative LAB MOLECULAR DIAGNOSTICS METHOD 05/26/2025 1:56 PM EDT [facility] Comment: This specimen type has not been evaluated for this method. Interpret results with caution. RECTUM Swab Rectum structure / Unknown 12/11/2024 12/11/2024 7:25 PM EST us Gissel Vasquez MD LAB MICROBIOLOGY - GENERA L ORDERABLES Edited Result - Final Performing Organization Address [facility]/ZIP Co de Phone Number [facility] [address] [place] [address], * Chlamydia trachomatis and Neisseria gonorrhoeae molecular study (12/11/2024 12:00 AM EST) [facility] Neisseria gonorrhoeae PCR Negative Negative LAB MOLECULAR DIAGNOSTICS METHOD 05/27/2025 12:31 PM EDT [facility] Comment: This specimen type has not been evaluated for this method. Interpret results with caution. THROAT Chlamydia trachomatis PCR Negative Negative LAB MOLECULAR DIAGNOSTICS METHOD 05/27/2025 12:31 PM EDT [facility] Comment: This specimen type has not been evaluated for this method. Interpret results with caution. THROAT Swab Structure of anterior region of neck / Unknown 12/11/2024 12/11/2024 7:25 PM EST us Gissel Vasquez MD LAB MICROBIOLOGY - GENERA L ORDERABLES Edited Result - Final Performing Organization Address [facility]/ZIP Co de Phone Number [facility] [address] [place] [address], * Chlamydia trachomatis and Neisseria gonorrhoeae molecular study (12/11/2024 12:00 AM EST) Neisseria gonorrhoeae PCR Negative Negative LAB MOLECULAR DIAGNOSTICS METHOD 12/12/2024 9:29 AM EST [facility] Chlamydia trachomatis PCR Negative Negative LAB MOLECULAR DIAGNOSTICS METHOD 12/12/2024 9:29 AM EST [facility] Urine Urine specimen from urethra / Unknown 12/11/2024 12/11/2024 7:25 PM EST us Gissel Vasquez MD LAB MICROBIOLOGY - GENERA L ORDERABLES Final Result [facility] [address] [place] [address], * (ABNORMAL) Culture wound deep (12/11/2024 12:00 AM EST) Culture, Wound Few Staphylococcus epidermidis(A) MARYAN 12/15/2024 12:33 PM [facility] Comment: The organism value for this result has been updated. These results have been appended to the previously preliminary verified report. Edited result: Previously reported as Gram Positive Cocci on 12/15/2024 at 1224 EST. Culture, Wound Few Staphylococcus epidermidis(A) MARYAN 12/15/2024 12:33 PM EST [facility] Comment: The organism value for this result has been updated. These results have been appended to the previously preliminary verified report. Edited result: Previously reported as Gram Positive Cocci on 12/15/2024 at 1224 EST. Gram Stain Result No polymorphonuclear leukocytes, No epithelial cells, and No organisms noted 12/15/2024 12:33 PM [facility] Swab Structure of [...] - GENERA L ORDERABLES Final Result [facility] [address] [place] [address], documented in this encounter Visit Diagnoses Diagnosis Contact with and (suspected) exposure to infections with a predominantly sexual mode of transmission Human immunodeficiency virus (HIV) disease ([facility] V24, [facility] V28) Human immunodeficiency virus [HIV] disease documented in this encounter Additional Health Concerns Infection Onset Date Last Indicated Resolved Time Respiratory Rule-Out 06/13/2025 06/13/2025 025 2:20 PM EDT documented as of this encounter Care Teams Moss Gatherer Relationship Specialty Start Date End Date Dominik Moses MD [address] [facility] [address] [place], [place] PCP - General Pediatrics 08/27/21 documented as of this encounter
--- OUTSIDE RECORDS SUMMARY | 2025-09-09 12:39 | XMS_ITS | Clinical Summary ---
Author Organization [facility] Address [address] [place] [address] Phone Care Team Providers Care Retail Coverage Merchandiser Name Role Phone Jose Guadalupe Vargas MD Primary Care Provider [phone] Jose Guadalupe Vargas MD Unavailable [phone] Social History Tobacco Use Types Packs/Day Years Used Date Smoking Tobacco: Never Assessed Sex and Gender Information Value Date Recorded Sex Assigned at Not on file Legal Sex Male 7:37 PM EDT Gender Identity Not on file Sexual Orientation Not on file Plan of Treatment Not on file Care Teams Retail Coverage Merchandiser Relationship Specialty Start Date End Date Jose Guadalupe Vargas MD [address] [place] [address] PCP - General 10/01/08 Jose Guadalupe Vargas MD [address] [place] [address] PCP - Insurance PCP 10/01/08
--- OUTSIDE RECORDS SUMMARY | 2025-09-09 12:39 | XMS_ITS | Encounter Summary ---
Author Organization [facility] Address [address] [place] [address] Care Team Providers Care Manager Of Financial Name Role Phone Dominik Moses MD Primary Care Provider Encounter Details Date Type Department Care Team (Late st Contact Info) Description 06/13/2025 Lab Requisition [facility] - Main Lab [address] [place] [address] Gissel Vasquez MD [address] [place] [address] Encounter for gynecological examination (general) (routine) without [...] Procedure Name Priority Date/Time Associated Diagnosis Comments [id number], RSV, FLU A AND B QUALITATIVE RT-PCR, [...] diseases documented in this encounter Results * [id number], RSV, Influenza A and B qualitative RT-PCR (06/13/2025 3:35 PM EDT) [facility] SARS COV-2 Not Detected Not Detected LAB MOLECULAR DIAGNOSTICS METHOD 06/14/2025 2:20 PM EDT [facility] Comment: Disclaimer: The manner in which this information is used to guide patient care is the responsibility of the healthcare provider. Testing was performed using the CrowdTwist Alinity m SARS-CoV-2 test. This test has [...] for Healthcare Providers can be found at: https://www.fda.gov/media/830187/download Fact sheet for Patients can be found at: https://www.fda.gov/media/539304/download Influenza A PCR Not Detected Not Detected [...] L ORDERABLES Final Result Performing Organization Address City/[facility]/ZIP Co de Phone Number [facility] [address] [place] [address], [place] [phone] * Chlamydia trachomatis and Neisseria gonorrhoeae molecular [...] L ORDERABLES Final Result Performing Organization Address City/[facility]/ZIP Co de Phone Number [facility] [address] [place] [address], [place] [phone] * Chlamydia trachomatis and Neisseria gonorrhoeae molecular study (06/13/2025 3:35 PM EDT) Neisseria gonorrhoeae PCR Negative Negative LAB MOLECULAR DIAGNOSTICS METHOD 06/14/2025 10:59 AM EDT [facility] Chlamydia trachomatis PCR Negative Negative LAB MOLECULAR DIAGNOSTICS METHOD 06/14/2025 10:59 AM EDT [facility] Swab Topography unknown / Unknown 06/13/2025 3:35 PM EDT 06/13/2025 6:58 PM EDT Gissel Vasquez MD LAB MICROBIOLOGY - GENERA L ORDERABLES Final Result Performing Organization Address City/[facility]/ZIP Co de Phone Number [facility] [address] [place] [address], [place] [phone] * Chlamydia trachomatis and Neisseria gonorrhoeae molecular study (06/13/2025 3:35 PM EDT) Neisseria gonorrhoeae PCR Negative Negative LAB MOLECULAR DIAGNOSTICS METHOD 06/14/2025 10:59 AM EDT [facility] Chlamydia trachomatis PCR Negative Negative LAB MOLECULAR DIAGNOSTICS METHOD 06/14/2025 10:59 AM EDT [facility] Swab Rectum structure / Unknown 06/13/2025 3:35 PM EDT 06/13/2025 6:58 PM EDT Gissel Vasquez MD LAB MICROBIOLOGY - GENERA L ORDERABLES Final Result Performing Organization Address [facility] Co de Phone Number [facility] [address] [place] [address], [place] [phone] documented in this encounter Visit Diagnoses Diagnosis Encounter for gynecological examination (general) (routine) without abnormal findings Contact with and (suspected) exposure to other viral communicable diseases documented in this encounter Additional Health Concerns Infection Onset Date Last Indicated Resolved Time Respiratory Rule-Out 06/13/2025 06/13/2025 025 2:20 PM EDT documented as of this encounter Care Teams Manager Of Financial Relationship Specialty Start Date End Date Dominik Moses MD [address] [facility] [address] [place], [place] PCP - General Pediatrics 08/27/21 documented as of this encounter
--- OUTSIDE RECORDS SUMMARY | 2025-09-09 12:39 | XMS_ITS | Clinical Summary ---
Author Organization [address] [facility] Address [address] [place] [address] Phone Care Team Providers Care Construction Crew Member Name Role Phone Dominik Moses MD Primary Care Provider [phone] Encounters Date Type Department Care Team Description 06/13/2025 Lab Requisition [facility] - Main Lab [address] [place] [address] Gissel Vasquez MD Encounter for gynecological examination (general) (routine) without abnormal findings; Contact with and (suspected) exposure to other viral communicable diseases from Last 3 Months Medical History Medical History Date Comments Myopia DX:Myopia HIV infection (CMS/HCC V24, CMS/HCC V28) DX:HIV infection ([facility]) Family History Medical History Relation Name [...] Procedure Name Priority Date/Time Associated Diagnosis Comments [id number], RSV, FLU A AND B QUALITATIVE RT-PCR, [...] diseases from Last 3 Months Results * [id number], RSV, Influenza A and B qualitative RT-PCR (06/13/2025 3:35 PM EDT) Pathologist [facility] SARS COV-2 Not Detected Not Detected LAB MOLECULAR DIAGNOSTICS METHOD 06/14/2025 2:20 PM EDT [facility] Comment: Disclaimer: The manner in which this information is used to guide patient care is the responsibility of the healthcare provider. Testing was performed using the Follicum Alinity m SARS-CoV-2 test. This test has [...] for Healthcare Providers can be found at: https://www.fda.gov/media/399365/download Fact sheet for Patients can be found at: https://www.fda.gov/media/057131/download Influenza A PCR Not Detected Not Detected LAB MOLECULAR DIAGNOSTICS METHOD 06/14/2025 2:20 PM EDT [facility] Influenza B PCR Not Detected Not Detected LAB MOLECULAR DIAGNOSTICS METHOD 06/14/2025 2:20 PM EDT [facility] RSV PCR Not Detected Not Detected LAB MOLECULAR DIAGNOSTICS METHOD 06/14/2025 2:20 PM EDT [facility] Swab Nasopharyngeal structure / Unknown 06/13/2025 3:35 PM EDT 06/13/2025 6:58 PM EDT Gissel Vasquez MD LAB MICROBIOLOGY - GENERA L ORDERABLES Final Result Performing Organization Address [facility] Co de Phone Number [facility] [address] [place] [address], * Chlamydia trachomatis and Neisseria gonorrhoeae molecular study (06/13/2025 3:35 PM EDT) Only the most recent of3 resultswithin the time period is included. Neisseria gonorrhoeae PCR Negative Negative LAB MOLECULAR DIAGNOSTICS METHOD 06/14/2025 3:09 PM EDT [facility] Chlamydia trachomatis PCR Negative Negative LAB MOLECULAR DIAGNOSTICS METHOD 06/14/2025 3:09 PM EDT [facility] Urine Urine specimen from urethra / Unknown 06/13/2025 3:35 PM EDT 06/13/2025 6:58 PM EDT Gissel Vasquez MD LAB MICROBIOLOGY - GENERA L ORDERABLES Final Result Performing Organization Address [facility] Co de Phone Number [facility] [address] [place] [address], from Last 3 [place] [address] [facility] [place] Care Teams Construction Crew Member Relationship Specialty Start Date End Date Dominik Moses MD [address] [facility] [address] [place], [place] PCP - General Pediatrics 08/27/21
== END 2025-09-09 11:14 | disposition home or self-care (01) ==
LOC: HO.HOP 10:19
PROVIDERS: Visit Provider Counselor Mental Health
DX: F33.1 Major depressive disorder, recurrent, moderate (principal); F41.1 Generalized anxiety disorder; F43.9 Reaction to severe stress, unspecified
CPT/HCPCS: 90837

== ENCOUNTER 2025-09-16 10:26 | Outpatient (AMB) | payer BC, MEDICAID, SELFPAY ==
--- OUTSIDE RECORDS SUMMARY | 2025-09-16 04:13 | XMS_ITS ---
[...] and/or family 10 minutes or less CHARLI [facility] Medicine Note signed at: 2025-08-31 23:03:17 -0700 HIV infection Active Family History Heart disease Social History Social History Observation Description Dates Observed Smoking Status Unknown if ever smoked Social Data No Known Social Data Immunizations Vaccine Date Status Unknown immunization status 09/16/2025 Comp leted Plan of Treatment Health Screenings Date Goal Action Comments August 21, 2025 Depression screening PHQ-2 Insurance Providers Payer name Policy type / Coverage type Policy ID Covered democrat ID Policy [facility] [id number] Self Notes * Video Encounter - 08/31/2025 SUBJECTIVE: Rema Cortez PA-C Supervising Physicians: Oscar Cardenas DO Patient Location: [place] Current time: 1:53 AM EDT Pt confirmed [...]
--- NOTE | 2025-09-16 10:33 | A.OFFWM_ITS ---
Intake Intake Visit Reasons: VIDEO OP Therapy Allergies ciclopirox Allergy (Intermediate, Verified 10/27/24 10:56) Rash gluten Adverse Reaction (Mild, Verified 10/27/24 16:52) Itching lactose Adverse Reaction (Mild, Verified 10/27/24 16:52) Itching PFSH Medical History Chronic pelvic pain in male Cyst of epididymis Testicular pain, left Scrotal pain Trauma and stressor-related disorder Major depressive disorder, recurrent episode Generalized anxiety disorder HIV (human immunodeficiency virus infection) Social History Comment: Alcohol occasional Substance Use Type: Marijuana Sexual orientation: Lesbian/Saenz/Homosexual Gender identity: Male Behavioral Health Assessment Weight Management Therapy Therapy Notes Details Subjective: Patient states, ?I?m not terrible but not great. Pain was better last week but worse this week.? Reports increased communication difficulties with his mother, expressing frustration that his efforts to be assertive or gentle have not improved their interactions. Describes experiencing a mix of sadness and anxiety, noting a physical ?anxiety urge? yesterday. Patient utilized the ?do the opposite? technique previously discussed, which he found helpful in managing his symptoms. Objective: Patient attended follow-up visit via Telehealth. Engaged and communicative throughout the session. Discussed current functioning, progress, and ongoing challenges. Explored the impact of negative thinking and self-talk on his symptoms. Patient reflected on how his perspective on past situations has changed, recognizing that events he previously maximized were less significant than he realized, especially in the context of his current experiences. This insight led to work on mindfulness and focusing on living in the present. CBT- based interventions were used to support symptom management. Assessment/Response: * Mental status: Alert and oriented x3. Mood described as a combination of sadness and anxiety; affect congruent. Thought process logical and coherent. No evidence of psychosis or cognitive impairment. * Risk reported/identified: Denies suicidal or homicidal ideation, intent, or plan. No acute safety concerns identified. Assessment & Plan Assessment & Plan (1) Generalized anxiety disorder: Code(s): F41.1 - Generalized anxiety disorder (2) Major depressive disorder, recurrent episode: Code(s): F33.9 - Major depressive disorder, recurrent, unspecified Qualifiers: Major depression episode severity: moderate Qualified Code(s): F33.1 - Major depressive disorder, recurrent, moderate (3) Trauma and stressor-related disorder: Code(s): F43.9 - Reaction to severe stress, unspecified Plan Continue to reinforce mindfulness and present-focused strategies. Encourage ongoing use of CBT techniques, including ?do the opposite.? Monitor communication patterns and emotional responses, especially in family interactions. * Follow-up appointment scheduled in 1 week: [date] at 10:00 AM via video. Telehealth Telehealth Telehealth Platform: [employer] Location of provider rendering services: other (Home office. [place], [place]) Location of patient: address on file Patient Identification confirmed using: Name, : Yes Telehealth method: video Patient verbally consented to treatment: Yes Patient verbally consented to billing insurance company: Yes Patient informed of any privacy concerns related to visit: Yes Minutes spent on Phone/Video with Pt.: 40 [place] [address] Tele Psytx 45 mins Patient Type Established Diagnoses Generalized anxiety disorder F41.1 Moderate episode of recurrent major depressive disorder F33.1 Major depression episode severity: moderate Trauma and stressor-related disorder F43.9 Time Spent (min) 40 Comment Start time: 10:25 - End time:11:05am
--- OUTSIDE RECORDS SUMMARY | 2025-09-16 12:14 | XMS_ITS | Data Portability ---
Author Organization [place] [facility], Allergy Address [address] [facility] [address] [place] [address] Care Team Providers Care Kosher Sealer Name Role Phone ISABEL TRAN Primary Care Provider ISABEL TRAN Referring Provider [phone] JANES TRAN Primary Care Provider [phone] Assessment No assessment recorded. Plan of Treatment [...] Address Organization Details Recorded Time Bilateral tinnitus 78010186800 02 Active 2022 Tinnitus, bilateral ; Note: Date Diagnosed : 04/25/2023 2:02 PM (H93.13) Not Available [facility] 4 03:17:50 Jaw pain 938714869 Active 2022 Jaw pain; Note: Date Diagnosed : 04/25/2023 2:07 PM (R68.84) Not Available [facility] 03:17:49 Hypertrop hy of tonsils 02763571 Active 2023 Hypertrop hy of tonsils; Note: Date Diagnosed : 12/11/2023 1:00 PM (J35.1) Not Available [facility] 4 03:17:50 Bleeding from nose 285044767 Active 2023 Epistaxis ; Note: Date Diagnosed : 12/21/2023 1:51 PM (R04.0) Not Available [facility] 4 03:17:49 Chronic disease of tonsils AND/OR adenoids 89174892 Active 2023 Calculus, tonsil; Note: Date Diagnosed : 12/21/2023 1:50 PM (J35.8) Not Available [facility] 4 03:17:50 Hemoptysi s 75157894 Active 2023 Hemoptysi s; Note: Date Diagnosed : 12/22/2023 3:29 PM (R04.2) Not Available [facility] 4 03:17:50 Chronic tonsillit is 80591898 Active 2023 MARCOS SABA MD [address] [place] [address], [place], [address] , [facility] - [facility] 4 11:34:25 Problem Notes None recorded. Medical [...] capsule,d elayed release active Medicati on ID: [id number] B rand Name: duloxeti ne Send Method: [...] Updated DateTime 05/17/2024 177.8 cm 25.8 kg/m2 18122.63 g Kasey Farrell [place] [facility] 05/17/2024 13:41:31 Social History None recorded. Functional Status None recorded. Mental Status None recorded. Family History Nothing Reported. Medical History Condition Response Migraines Y Immune System Disorder Y Past Encounters Encounter ID Performer Location Encounter Start Date Encounter Closed Date Diagnosis/Indication Diagnosis SNOMED-CT Code Diagnosis ICD10 Code Diagnosis IMO Codes Diagnosis Note [id number] MARCOS SABA MD [facility] [address] [address] 05/17/2024 13:34:24 05/20/2024 17:12:20 Chronic tonsillitis 96165623 J35.01 23-year-ol d male presents today for [...] 05/24/2024 1 [place] [facility] ([place]) [id number] Casper Inman [id number] Casper Inman 05/14/2024 2 [place] Casper Inman [id number] Casper Inman Notes Date Note Type Note [...] bleeding in several weeks. MARCOS SABA MD [address] [place] [address], [phone], [facility] - [facility] 05/18/2024 11:39:09
--- OUTSIDE RECORDS SUMMARY | 2025-09-16 12:14 | XMS_ITS | Clinical Summary ---
Author Organization [facility] Address [address] [place] [address] Phone Care Team Providers Care Graduate Recruiter Name Role Phone Blanco Webster MD Primary Care Provider [phone] Social History Tobacco Use Types Packs/Day Years [...] age to complete this topic Care Teams Graduate Recruiter Relationship Specialty Start Date End Date Blanco Webster MD [facility] [facility] [place] [address] PCP - General 03/21/18
--- OUTSIDE RECORDS SUMMARY | 2025-09-16 12:14 | XMS_ITS | Data Portability ---
Author Organization CHARLES - JOSEPH ROSALES MD [facility], Main Office Address [address] [place] [id number] Assessment Encounter Date Assessment Date Assessment LastModified by Organization Details LastModified Time 05/06/2024 05/06/2024 telehealth. Video. 17 min. pt home in [place]. [email or web address] Not available 05/06/2024 15:40:11 Plan of Treatment Reminders Order Date Submit Date Provider Last Modified By Organization Details Last Modified Time Details Appointments B20 FOLLOW UP 2024 01:00P Vania Robles MD Not available Not available Not available Lab chlamydi a trachoma tis + neisseri a gonorrho eae rRNA panel, PATRICIA+prob e, nasophar ynx 2024 025 [email or web address] [facility], [address] [place], [address], 06/19/2025 15:37:52 chlamydi a trachoma tis + neisseri a gonorrho eae + trichomo nacho vaginali s DNA panel, PATRICIA+prob e, urine 2024 025 [email or web address] [facility], [address] [place], [address], 06/19/2025 15:37:30 CT + NG rRNA, QL, PATRICIA+prob e, anorecta l 2024 025 [email or web address] [facility], [address] [place], [address], 06/19/2025 15:35:34 respirat ory virus panel, dfa 2024 025 [email or web address] [facility], [address], [place], [address], 06/19/2025 15:36:27 CBC w/ diff 2024 025 [email or web address] [facility], [address], [address], [place], [address], 06/20/2025 13:59:38 ALT (alanine aminotra nsferase ), serum or plasma 2024 025 [email or web address] [facility], [address], [address], [place], [address], 06/20/2025 13:59:38 AST/SGOT (asparta te aminotra nsferase ), serum or plasma 2024 025 [email or web address] [facility], [address], [address], [place], [address], 06/20/2025 13:59:38 creatini ne w/ estimate d GFR (eGFR), serum or plasma 2024 025 [email or web address] [facility], [address], [address], [place], [address], 06/20/2025 13:59:38 HIV-1 RNA, quantita tive, PCR, serum or plasma 2024 025 [email or web address] [facility], [address], [address], [place], [address], 06/20/2025 13:59:39 RPR (rapid plasma reagin), serum 2024 025 [email or web address] [facility], [address], [address], [place], [address], 06/20/2025 13:59:39 HBsAg (hepatit is B surface Ag), EIA, serum 2024 025 [email or web address] [facility], [address], [address], [place], [address], 06/20/2025 13:59:39 cd4 T-cells, blood 2024 025 [email or web address] [facility], [address], [place], [address], 06/20/2025 13:59:39 chlamydi a trachoma tis + neisseri a gonorrho eae rRNA panel, PATRICIA+prob e, nasophar ynx 2024 025 [email or web address] [facility], [address] [facility], [place], [address], 12/12/2024 14:31:30 chlamydi a trachoma tis + neisseri a gonorrho eae + trichomo nacho vaginali s DNA panel, PATRICIA+prob e, urine 2024 025 ISAIAS [facility], [address] [facility], [place], [address], 12/14/2024 12:05:46 urinalys is, complete 2024 025 ISAIAS [facility], [address] [facility], [place], [address], 12/14/2024 12:05:46 culture, urine 2024 025 ISAIAS [facility], [address] [facility], [place], [address], 12/14/2024 12:05:49 CT + NG rRNA, QL, PATRICIA+prob e, anorecta l 2024 025 [facility], [address] [facility], [place], [address], 12/12/2024 12:48:43 CBC w/ diff 2024 025 ISAIAS [facility], [address], [address], [place], [address], 12/14/2024 12:05:45 ALT (alanine aminotra nsferase ), serum or plasma 2024 025 ISAIAS [facility], [address], [address], [place], [address], 12/14/2024 12:05:48 AST/SGOT (asparta te aminotra nsferase ), serum or plasma 2024 025 ISAIAS [facility], [address], [address], [place], [address], 12/14/2024 12:05:48 CT + NG DNA, PCR, unspecif ied specimen 2024 025 [email or web address] [facility], [address], [address], [place], [address], 12/26/2024 09:18:27 creatini ne w/ estimate d GFR (eGFR), serum or plasma 2024 025 ISAIAS [facility], [address], [address], [place], [address], 12/14/2024 12:05:47 hepatiti s C virus Ab, serum 2024 025 [email or web address] [facility], [address], [address], [place], [address], 12/18/2024 10:04:24 HIV-1 RNA, quantita tive, PCR, serum or plasma 2024 025 ISAIAS [facility], [address], [address], [place], [address], 12/14/2024 12:05:47 RPR (rapid plasma reagin), serum 2024 025 ISAIAS [facility], [address], [address], [place], [address], 12/14/2024 12:05:48 HBsAg (hepatit is B surface Ag), EIA, serum 2024 025 ISAIAS [facility], [address], [address], [place], [address], 12/14/2024 12:05:49 cd4 T-cells, blood 2024 025 ISAIAS [facility], [address], [place], [address], 12/14/2024 12:05:47 microorg anism identifi cation, unspecif ied specimen 2023 024 [email or web address] [facility], [address] [place], [place] [address], [address], [place], [address], 10/29/2024 16:30:19 microorg anism identifi cation, unspecif ied specimen 2023 024 [email or web address] [facility], [address], [address], [place], [address], 10/29/2024 16:30:19 CBC w/ diff 2023 024 [facility], [address], [address], [place], [address], 10/29/2024 16:30:18 electrol ytes panel, blood 2023 024 [email or web address] [facility], [address], [address], [place], [address], 10/29/2024 16:30:18 ALT (alanine aminotra nsferase ), serum or plasma 2023 024 [email or web address] [facility], [address], [address], [place], [address], 10/29/2024 16:30:19 AST/SGOT (asparta te aminotra nsferase ), serum or plasma 2023 024 [email or web address] [facility], [address], [address], [place], [address], 10/29/2024 16:30:19 CT + NG DNA, PCR, unspecif ied specimen 2023 024 [email or web address] [facility], [address], [address], [place], [address], 11/05/2024 09:56:38 creatini ne w/ estimate d GFR (eGFR), serum or plasma 2023 024 [email or web address] [facility], [address], [address], [place], [address], 10/29/2024 16:30:19 hepatiti s C virus Ab, serum 2023 024 [email or web address] [facility], [address], [address], [place], [address], 10/29/2024 16:30:19 HIV-1 RNA, quantita tive, PCR, serum or plasma 2023 024 [email or web address] [facility], [address], [address], [place], [address], 10/29/2024 16:30:19 RPR (rapid plasma reagin), serum 2023 024 [email or web address] [facility], [address], [address], [place], [address], 10/29/2024 16:30:19 HBsAg (hepatit is B surface Ag), EIA, serum 2023 024 [email or web address] [facility], [address], [address], [place], [address], 10/29/2024 16:30:19 CBC w/ diff 2023 024 [email or web address] [facility], [address], [address], [place], [address], 07/26/2024 14:38:27 electrol ytes panel, blood 2023 024 [email or web address] [facility], [address], [address], [place], [address], 07/26/2024 14:38:27 ALT (alanine aminotra nsferase ), serum or plasma 2023 024 [email or web address] [facility], [address], [address], [place], [address], 07/26/2024 14:38:27 AST/SGOT (asparta te aminotra nsferase ), serum or plasma 2023 024 [email or web address] [facility], [address], [address], [place], [address], 07/26/2024 14:38:27 CT + NG DNA, PCR, unspecif ied specimen 2023 024 [email or web address] [facility], [address], [address], [place], [address], 07/26/2024 14:38:27 creatini ne w/ estimate d GFR (eGFR), serum or plasma 2023 024 [email or web address] [facility], [address], [address], [place], [address], 07/26/2024 14:38:27 hepatiti s C virus Ab, serum 2023 024 [email or web address] [facility], [address], [address], [place], [address], 07/26/2024 14:38:27 HIV-1 RNA, quantita tive, PCR, serum or plasma 2023 024 [email or web address] [facility], [address], [address], [place], [address], 07/26/2024 14:38:27 RPR (rapid plasma reagin), serum 2023 024 [email or web address] [facility], [address], [address], [place], [address], 07/26/2024 14:38:27 T-cell regulato ry subsets panel, blood 2023 024 [email or web address] [facility], [address], [address], [place], [address], 07/26/2024 14:38:28 Referral None recorded . Procedures None recorded . Surgeries None recorded . Imaging None recorded . Medication Orders doxycycl ine hyclate 100 [address] capsule [address] [id number], [address] [place] [address], [address], 06/13/2025 15:36:13 Biktarvy 50 mg-200 mg-25 mg tablet [address] [facility], [address] [place] [address], [address], 06/13/2025 15:36:13 Augmenti n 500 mg-125 mg tablet [address] [facility], [address] [place] [address], [address], 12/11/2024 11:19:02 Biktarvy 50 mg-200 mg-25 mg tablet [address] [facility], [address] [place] [address], [address], 12/11/2024 11:19:02 Biktarvy 50 mg-200 mg-25 mg tablet [address] [facility], [address] [place], [address], 10/18/2024 14:41:53 lidocain e 5 % topical patch [address] [facility], [address] [place] [address], [address], 07/19/2024 15:14:52 diclofen ac 1 % topical gel [address] [facility], [address] [place] [address], [address], 07/19/2024 15:18:09 Biktarvy 50 mg-200 mg-25 mg tablet [address] [facility], [address] [place] [address], [address], 07/19/2024 15:14:55 multivit baez tablet [address] [facility], [address] [place] [address], [address], 07/19/2024 15:16:52 fluconaz ole 100 mg tablet [address] [facility], [address] [place] [address], [address], 05/06/2024 16:03:13 hydroxyz ine HCl 25 mg tablet 2023 024 [email or web address] [facility] #0769, [address] [place] [address], [address], 05/29/2024 13:07:18 Biktarvy 50 mg-200 mg-25 mg tablet [address] [facility], [address] [place] [address], [address], 05/06/2024 16:03:15 Patient TargetsNo targets recorded. Patient InstructionsNo instructions recorded. Reason for Referral None Reported. Results Created Date Observation Date Name Description Value Unit Range Abnormal Flag Note LastModifiedBy Organization Detail LastModifiedTime 04/15/20 24 04/15/2024 WOUND CULTU RE performing lab Perfor daniel [facility], [facility] [address] [place] [address] Medic [facility] kaylie vargas MD Not Available [facility] [address] [place] [address], [address], 04/18/2024 12:12:18 04/15/20 24 04/18/2024 WOUND CULTU RE wound culture No patho gens noted PARRIS L SKIN IZABELLA PRESE NT GRAM STAIN RESUL T NO POLYS , NO EPITH ELIAL CELLS , NO ORGAN ISMS NOTED Not Available [facility] [address] [place] [address], [address], 04/18/2024 12:12:18 05/17/20 24 05/17/2024 GENIT AL CULTU RE performing lab Perfor daniel [facility] atori velasquez, [facility] [address] [place] [address] Medic [facility] kaylie vargas MD Not Available [facility] [address] [place] [address], [address], 05/20/2024 11:46:31 05/17/20 24 05/20/2024 GENIT AL CULTU RE genital culture No yeast , Beta Strep Group B, Neiss eria gonor rhoea e, Liste jakob, Gardn erell a vagin brown, or other predo minan t potmirella pike y signi ficaide t patho gens noted . Not Available [facility] [address] [place] [address], [address], 05/20/2024 11:46:31 05/17/20 24 05/17/2024 FUNGU S CULTU RE,OT HER performing lab Perfor daniel [facility], [facility] [address] [place] [address] Medic [facility] kaylie vargas MD Not Available [facility] [address] [place] [address], [address], 06/17/2024 08:03:22 05/17/20 24 06/17/2024 FUNGU S CULTU RE,OT HER fungus culture,othe r Negati ve for Fungus after 4 weeks Not Available [facility] [address] [place] [address], [address], 06/17/2024 08:03:22 07/19/20 24 07/20/2024 CHLAM YDIA DNA SWAB chlamydia DNA swab NEGATI VE negati ve This speci men type has not been evalu ated for this metho d. Inter pret resul ts with cauti on. SOURC E = ORAL Not Available [facility] [employer] [facility] [address] [place] [address], [address], 07/20/2024 08:43:26 07/19/20 24 07/20/2024 GC DNA SWAB GC DNA swab NEGATI VE negati ve This speci men type has not been evalu ated for this metho d. Inter pret resul ts with cauti on. SOURC E = ORAL Not Available [facility] [employer] [facility] [address] [place] [address], [address], 07/20/2024 08:43:27 07/19/20 24 07/20/2024 GC DNA SWAB performing lab Perfor daniel [facility], kris rojo r of [facility] [address] [place] [address] Medic al [facility] kaylie vargas MD Not Available [facility] [employer] [facility] [address] [place] [address], [address], 07/20/2024 08:43:27 08/30/20 24 08/31/2024 CBC/D /PLT W/ REFLE X JUANCARLOS TIN WBC 5.9 x10e3 /uL 3.4-10 .8 normal Not Available [facility] ([facility]) [address] [facility], [place], [address], 09/03/2024 14:06:45 08/30/2008/31/2024 CBC/D /PLT W/ REFLE X JUANCARLOS TIN RBC 4.67 x10e6 /uL 4.14-5 .80 normal Not Available [facility] ([facility]) [address] [facility], [place], [address], 09/03/2024 14:06:45 08/30/2008/31/2024 CBC/D /PLT W/ REFLE X JUANCARLOS TIN hemoglobin 14.8 g/dL 13.0-1 7.7 normal Not Available [facility] ([facility]) [address] [facility], [place], [address], 09/03/2024 14:06:45 08/30/2008/31/2024 CBC/D /PLT W/ REFLE X JUANCARLOS TIN hematocrit 42.2 % 37.5-5 1.0 normal Not Available [facility] ([facility]) [address] [facility], [place], [address], 09/03/2024 14:06:45 08/30/2008/31/2024 CBC/D /PLT W/ REFLE X JUANCARLOS TIN MCV 90 fL 79-97 normal Not Available [facility] ([facility]) [address] [facility], [place], [address], 09/03/2024 14:06:45 08/30/2008/31/2024 CBC/D /PLT W/ REFLE X JUANCARLOS TIN MCH 31.7 pg 26.6-3 3.0 normal Not Available [facility] ([facility]) [address] [facility], [place], [address], 09/03/2024 14:06:45 08/30/20 24 08/31/2024 CBC/D /PLT W/ REFLE X JUANCARLOS TIN MCHC 35.1 g/dL 31.5-3 5.7 normal Not Available [facility] ([facility]) [address] [facility], [place], [address], 09/03/2024 14:06:45 08/30/2008/31/2024 CBC/D /PLT W/ REFLE X JUANCARLOS TIN RDW 12.7 % 11.6-1 5.4 Not Available [facility] ([facility]) [address] [facility], [place], [address], 09/03/2024 14:06:45 08/30/2008/31/2024 CBC/D /PLT W/ REFLE X JUANCARLOS TIN platelets 276 x10e3 /uL 150-45 0 normal Not Available [facility] ([facility]) [address] [facility], [place], [address], 09/03/2024 14:06:45 08/30/20 24 08/31/2024 CBC/D /PLT W/ REFLE X JUANCARLOS TIN neutrophils 39 % not estab. normal Not Available [facility] ([facility]) [address] [facility], [place], [address], 09/03/2024 14:06:45 08/30/2008/31/2024 CBC/D /PLT W/ REFLE X JUANCARLOS TIN lymphs 51 % not estab. normal Not Available [facility] ([facility]) [address] [facility], [place], [address], 09/03/2024 14:06:45 08/30/2008/31/2024 CBC/D /PLT W/ REFLE X JUANCARLOS TIN monocytes 8 % not estab. normal Not Available [facility] ([facility]) [address] [place], [address], 09/03/2024 14:06:45 08/30/2008/31/2024 CBC/D /PLT W/ REFLE X JUANCARLOS TIN eos 1 % not estab. normal Not Available [facility] ([facility]) [address] [place], [address], 09/03/2024 14:06:45 08/30/20 24 08/31/2024 CBC/D /PLT W/ REFLE X JUANCARLOS TIN basos 1 % not estab. normal Not Available [facility] ([facility]) [address] [facility], [place], [address], 09/03/2024 14:06:45 08/30/20 24 08/31/2024 CBC/D /PLT W/ REFLE X JUANCARLOS TIN immature cells [employer] Not Available [facility] ([facility]) [address] [facility], [place], [address], 09/03/2024 14:06:45 08/30/20 24 08/31/2024 CBC/D /PLT W/ REFLE X JUANCARLOS TIN neutrophils (absolute) 2.3 x10e3 /uL 1.4-7. 0 normal Not Available [facility] ([facility]) [address] [facility], [place], [address], 09/03/2024 14:06:45 08/30/20 24 08/31/2024 CBC/D /PLT W/ REFLE X JUANCARLOS TIN lymphs (absolute) 3.0 x10e3 /uL 0.7-3. 1 normal Not Available [facility] ([facility]) [address] [facility], [place], [address], 09/03/2024 14:06:45 08/30/20 24 08/31/2024 CBC/D /PLT W/ REFLE X JUANCARLOS TIN monocytes(ab solute) 0.5 x10e3 /uL 0.1-0. 9 normal Not Available [facility] ([facility]) [address] [facility], [place], [address], 09/03/2024 14:06:45 08/30/20 24 08/31/2024 CBC/D /PLT W/ REFLE X JUANCARLOS TIN eos (absolute) 0.1 x10e3 /uL 0.0-0. 4 normal Not Available [facility] ([facility]) [address] [facility], [place], [address], 09/03/2024 14:06:45 08/30/2008/31/2024 CBC/D /PLT W/ REFLE X JUANCARLOS TIN baso (absolute) 0.0 x10e3 /uL 0.0-0. 2 normal Not Available [facility] ([facility]) [address] [facility], [place], [address], 09/03/2024 14:06:45 08/30/2008/31/2024 CBC/D /PLT W/ REFLE X JUANCARLOS TIN immature granulocytes 0 % not estab. Not Available [facility] ([facility]) [address] [facility], [place], [address], 09/03/2024 14:06:45 08/30/2008/31/2024 CBC/D /PLT W/ REFLE X JUANCARLOS TIN immature grans (abs) 0.0 x10e3 /uL 0.0-0. 1 Not Available [facility] ([facility]) [address] [facility], [place], [address], 09/03/2024 14:06:45 08/30/20 24 08/31/2024 CBC/D /PLT W/ REFLE X JUANCARLOS TIN NRBC [employer] Not Available [facility] ([facility]) [address] [facility], [place], [address], 09/03/2024 14:06:45 08/30/2008/31/2024 CBC/D /PLT W/ REFLE X JUANCARLOS TIN hematology comments: [employer] Not Available [facility] ([facility]) [address] [facility], [place], [address], 09/03/2024 14:06:45 08/30/20 24 08/31/2024 T-KYLE L ACTIV ATION , CD8 SUBSE TS absolute cd 3 2193 /uL 622-24 02 Not Available [facility] ([facility]) [address] [place], [address], 09/03/2024 14:06:45 08/30/2008/31/2024 T-KYLE L ACTIV ATION , CD8 SUBSE TS % cd 3 pos. lymph. 73.1 % 57.5-8 6.2 Not Available [facility] ([facility]) [address] [place], [address], 09/03/2024 14:06:45 08/30/2008/31/2024 T-KYLE L ACTIV ATION , CD8 SUBSE TS abs.cd8+hla- dr+lymph 45 /uL 0-117 Not Available [facility] ([facility]) [address] [place], [address], 09/03/2024 14:06:45 08/30/2008/31/2024 T-KYLE L ACTIV ATION , CD8 SUBSE TS % cd8+hla-dr+ lymphs 1.5 % 0.0-4. 9 Not Available [facility] ([facility]) [address] [place], [address], 09/03/2024 14:06:45 08/30/2008/31/2024 T-KYLE L ACTIV ATION , CD8 SUBSE TS % cd3+cd25+ lymphs 14.1 % 4.9-25 .9 Not Available [facility] ([facility]) [address] [place], [address], 09/03/2024 14:06:45 08/30/2008/31/2024 T-KYLE L ACTIV ATION , CD8 SUBSE TS abs.cd3+cd25 + lymphs 423 /uL 79-535 Not Available [facility] ([facility]) [address] [place], [address], 09/03/2024 14:06:45 08/30/2008/31/2024 T-KYLE L ACTIV ATION , CD8 SUBSE TS % cd8+cd38+ lymphs 15.7 % 0.0-17 .7 Not Available [facility] ([facility]) [address] [place], [address], 09/03/2024 14:06:45 08/30/2008/31/2024 T-KYLE L ACTIV ATION , CD8 SUBSE TS abs.cd8+cd38 + lymphs 471 /uL 0-381 above high normal Not Available [facility] ([facility]) [address] [place], [address], 09/03/2024 14:06:45 08/30/2009/02/2024 T-KYLE L ACTIV ATION , CD8 SUBSE TS absolute cd 4 helper 1206 /uL 359-15 19 Not Available [facility] ([facility]) [address] [place], [address], 09/03/2024 14:06:45 08/30/2009/02/2024 T-KYLE L ACTIV ATION , CD8 SUBSE TS % cd 4 pos. lymph. 40.2 % 30.8-5 8.5 Not Available [facility] ([facility]) [address] [place], [address], 09/03/2024 14:06:45 08/30/2009/02/2024 T-KYLE L ACTIV ATION , CD8 SUBSE TS absolute cd 8 (supp) 942 /uL 109-89 7 above high normal Not Available [facility] ([facility]) [address] [place], [address], 09/03/2024 14:06:45 08/30/2009/02/2024 T-KYLE L ACTIV ATION , CD8 SUBSE TS % cd 8 pos. lymph. 31.4 % 12.0-3 5.5 Not Available [facility] ([facility]) [address] [place], [address], 09/03/2024 14:06:45 08/30/20 24 09/02/2024 T-KYLE L ACTIV ATION , CD8 SUBSE TS cd4/cd8 ratio 1.28 0.92-3 .72 Not Available [facility] ([facility]) [address] [place], [address], 09/03/2024 14:06:45 08/30/20 24 08/31/2024 ELECT ROLYT E PANEL sodium 140 mmol/ L 134-14 4 normal Not Available [facility] ([facility]) [address] [place], [address], 09/03/2024 14:06:46 08/30/2008/31/2024 ELECT ROLYT E PANEL potassium 4.1 mmol/ L 3.5-5. 2 normal Not Available [facility] ([facility]) [address] [place], [address], 09/03/2024 14:06:46 08/30/2008/31/2024 ELECT ROLYT E PANEL chloride 101 mmol/ L 96-106 normal Not Available [facility] ([facility]) [address] [place], [address], 09/03/2024 14:06:46 08/30/2008/31/2024 ELECT ROLYT E PANEL carbon dioxide, total 24 mmol/ L 20-29 normal Not Available [facility] ([facility]) [address] [place], [address], 09/03/2024 14:06:46 08/30/2009/03/2024 CHLAM YDIA/ GC AMPLI FICAT ION chlamydia trachomatis, PATRICIA COMMEN T Dupli ash proce dure order ed. Not Available [facility] ([facility]) [address] [place], [address], 09/03/2024 14:06:46 08/30/2009/03/2024 CHLAM YDIA/ GC AMPLI FICAT ION neisseria gonorrhoeae, PATRICIA COMMEN T Dupli ash proce dure order ed. Not Available [facility] ([facility]) [address] [facility], [place], [address], 09/03/2024 14:06:46 08/30/2008/31/2024 GLOM FILT RATE, ESTIM ATED creatinine 1.04 mg/dL 0.76-1 .27 normal Not Available [facility] ([facility]) [address] [facility], [place], [address], 09/03/2024 14:06:47 08/30/2008/31/2024 GLOM FILT RATE, ESTIM ATED eGFR 104 mL/mi n/1.7 3 >59 normal Not Available [facility] ([facility]) [address] [facility], [place], [address], 09/03/2024 14:06:47 08/30/2009/01/2024 HCV ANTIB MELL RFX TO QUANT PCR HCV Ab Non Reacti ve non reacti ve Not Available [facility] ([facility]) [address] [facility], [place], [address], 09/03/2024 14:06:47 08/30/2009/01/2024 HCV ANTIB MELL RFX TO QUANT PCR interpretati on: Commen t Not infec daphnie with HCV unles s early or acute infec tion is suspe cted (whic h may be delay ed in an immun ocomp romis ed indiv idual ), or other evide nce exist s to indic ate HCV infec tion. Not Available [facility] ([facility]) [address] [facility], [place], [address], 09/03/2024 14:06:47 08/30/2008/31/2024 RNA, REAL TIME PCR (NON- GRAPH ) HIV-1 RNA by PCR <20 copie s/mL HIV-1 RNA detec daphnie The repor table range for this assay is 20 to 10,00 0,000 copie s HIV-1 RNA/m L. Not Available [facility] ([facility]) [address] [facility], [place], [address], 09/03/2024 14:06:47 08/30/20 24 08/31/2024 RNA, REAL TIME PCR (NON- GRAPH ) log10 HIV-1 RNA COMMEN T log10 copy/ mL Unabl e to calcu late resul t since non-n umeri c resul t obtai verena for compo nent test. Not Available [facility] ([facility]) [address] [facility], [place], [address], 09/03/2024 14:06:47 08/30/20 24 09/02/2024 PREP: RPR W/REF ARIADNA TITER +TPAB RPR Reacti ve non reacti ve abnormal Not Available [facility] ([facility]) [address] [place], [address], 09/03/2024 14:06:48 08/30/20 24 09/02/2024 PREP: RPR W/REF ARIADNA TITER +TPAB RPR, quant. 1:1 titer nonrea <1:1 above high normal Not Available [facility] ([facility]) [address] [facility], [place], [address], 09/03/2024 14:06:48 08/30/20 24 09/02/2024 PREP: RPR [...] early ) syphi lis. Not Available [facility] ([facility]) [address] [place], [address], 09/03/2024 14:06:48 08/30/2009/03/2024 PREP: RPR W/REF ARIADNA TITER +TPAB treponema pallidum antibodies Non Reacti ve non reacti ve Not Available [facility] ([facility]) [address] [place], [address], 09/03/2024 14:06:48 08/30/2008/31/2024 AST (SGOT ) AST (SGOT) 32 IU/L 0-40 normal Not Available [facility] ([facility]) [address] [place], [address], 09/03/2024 14:06:48 08/30/2008/31/2024 ALT (SGPT ) ALT (SGPT) 28 IU/L 0-44 normal Not Available [facility] ([facility]) [address] [facility], [place], [address], 09/03/2024 14:06:48 08/30/20 24 09/03/[address] PROBL EM request problem COMMEN T Dupli ash proce dure order ed. TEST: [id number] Chlam ydia trach omati s, PATRICIA Panel : [id number] [phone] [id number] [phone] Neiss eria gonor rhoea e, PATRICIA Panel : [id number] Not Available [facility] ([facility]) [address] [facility], [place], [address], 09/03/2024 14:06:49 10/18/20 24 10/18/2024 CULTU RE EYE WITH GRAM STAIN .note See Note Origi nal Order ing Provi eliot: NANO AARON Betzy YOUSIF CONNIE [facility] - [address] [facility], [place], [facility] [place] [id number] Not Available [facility] [employer] [facility] [address] [place] [address], [address], 10/18/2024 21:54:53 10/18/20 24 10/18/2024 CULTU RE EYE WITH GRAM STAIN gram stain result No polymo rphonu clear leukoc ytes, No epithe lial cells, and No organi sms noted Not Available [facility] [address] [place], [address], 10/18/2024 21:54:53 10/18/20 24 10/18/2024 CULTU RE GENIT AL .note See Note Origi nal Order ing Provi eliot: NANO WALKER Betzy NICA CONNIE [facility] - [address] [facility], [place], [facility] [place] [id number] Not Available [facility] [address] [place], [address], 10/19/2024 13:33:31 10/18/20 24 10/18/2024 CULTU RE GENIT AL culture, genital No growth at 1 day Not Available [facility] [address] [place], [address], 10/19/2024 13:33:31 10/18/20 24 10/18/2024 CULTU RE EYE WITH GRAM STAIN .note See Note Origi nal Order ing Provi eliot: NANO STOVERO CONNIE [facility] - [address] [facility], [place], [facility] [place] [id number] Not Available [facility] [address] [place] [address], [address], 10/20/2024 10:37:32 10/18/20 24 10/18/2024 CULTU RE EYE WITH GRAM STAIN culture, eye Screen ing for Pathog ens Not Available [facility] [address] [place] [address], [address], 10/20/2024 10:37:32 10/18/20 24 10/18/2024 CULTU RE EYE WITH GRAM STAIN gram stain result No polymo rphonu clear leukoc ytes, No epithe lial cells, and No organi sms noted Not Available [facility] [address] [place] [address], [address], 10/20/2024 10:37:32 10/18/20 24 10/18/2024 CULTU RE GENIT AL .note See Note Origi nal Order ing Provi eliot: NANO Bo MARTO CONNIE [facility] - [address] [facility], [place], [facility] [place] [id number] Not Available [facility] [address] [place] [address], [address], 10/20/2024 11:32:32 10/18/20 24 10/18/2024 CULTU RE GENIT AL culture, genital No pathog ens isolat ed to date. Not Available [facility] [address] [place] [address], [id number], 10/20/2024 11:32:32 10/18/20 24 10/18/2024 CULTU RE EYE WITH GRAM STAIN .note See Note Origi nal Order ing Provi eliot: NANO IA T MARTO CONNIE [facility] [address] [facility] [place] [id number] Not Available [facility] [address] [place], [address], 10/21/2024 10:52:48 10/18/20 24 10/18/2024 CULTU RE EYE WITH GRAM STAIN culture, eye No pathog ens isolat ed. Not Available [facility] [address] [place] [address], [address], 10/21/2024 10:52:48 10/18/20 24 10/18/2024 CULTU RE EYE WITH GRAM STAIN gram stain result No polymo rphonu clear leukoc ytes, No epithe lial cells, and No organi sms noted Not Available [facility] [address] [place] [address], [address], 10/21/2024 10:52:48 10/18/20 24 10/18/2024 CULTU RE GENIT AL .note See Note Origi nal Order ing Provi eliot: NANO YOUSIF CONNIE [facility] - [address] [facility], [place] [place], [place] [id number] Not Available [facility] [address] [place] [address], [address], 10/21/2024 10:54:44 10/18/20 24 10/18/2024 CULTU RE GENIT AL culture, genital No yeast, Beta Strep group B, Neisse jakob gonorr hoeae, Stella ia, Gardne rella vagina lis, or other predom inant potent ially signif icant pathog ens noted. Not Available [facility] [address] [place] [address], [address], 10/21/2024 10:54:44 12/11/19 25 12/11/2024 URINA LYSIS WITH REFLE X MICRO SCOPI C specific gravity urine 1.026 1.003- 1.030 Not Available [facility] [address] [place] [address], [address], 12/11/2024 19:39:08 12/11/1912/11/2024 URINA LYSIS WITH REFLE X MICRO SCOPI C pH, urine 5.5 pH 5.0-8. 0 Not Available [facility] [address] [place], [address], 12/11/2024 19:39:08 12/11/19 25 12/11/2024 URINA LYSIS WITH REFLE X MICRO SCOPI C leukocytes, urine Trace negati ve abnormal Not Available [facility] [address] [place], [address], 12/11/2024 19:39:08 12/11/1912/11/2024 URINA LYSIS WITH REFLE X MICRO SCOPI C nitrite, urine Negati ve negati ve Not Available [facility] [address] [place], [address], 12/11/2024 19:39:08 12/11/1912/11/2024 URINA LYSIS WITH REFLE X MICRO SCOPI C protein, urine Trace mg/dL <=trac e Not Available [facility] [address] [place], [address], 12/11/2024 19:39:08 12/11/1912/11/2024 URINA LYSIS WITH REFLE X MICRO SCOPI C glucose, urine Negati ve mg/dL negati ve Not Available [facility] [address] [place], [address], 12/11/2024 19:39:08 12/11/1912/11/2024 URINA LYSIS WITH REFLE X MICRO SCOPI C ketones, urine 15 mg/dL negati ve abnormal Not Available [facility] [address] [place], [address], 12/11/2024 19:39:08 12/11/1912/11/2024 URINA LYSIS WITH REFLE X MICRO SCOPI C urobilinogen , urine 1.0 mg/dL 0.2-1. 0 Not Available [facility] [address] [place], [address], 12/11/2024 19:39:08 12/11/19 25 12/11/2024 URINA LYSIS WITH REFLE X MICRO SCOPI C bilirubin, urine Negati ve negati ve Not Available [facility] [address] [place] [address], [address], 12/11/2024 19:39:08 12/11/19 25 12/11/2024 URINA LYSIS WITH REFLE X MICRO SCOPI C blood, urine Negati ve negati ve Not Available [facility] [address] [place] [address], [address], 12/11/2024 19:39:08 12/11/19 25 12/11/2024 URINA LYSIS WITH REFLE X MICRO SCOPI C RBC, urine 4.7 /hpf 0-4 high Not Available [facility] [address] [place] [address], [address], 12/11/2024 19:39:08 12/11/19 25 12/11/2024 URINA LYSIS WITH REFLE X MICRO SCOPI C WBC, urine 0.0 /hpf 0-4 Not Available [facility] [address] [place] [address], [address], 12/11/2024 19:39:08 12/11/19 25 12/11/2024 URINA LYSIS WITH REFLE X MICRO SCOPI C squamous epithelial, urine 3 /lpf 0-60 Not Available [facility] [address] [place] [address], [address], 12/11/2024 19:39:08 12/11/19 25 12/11/2024 URINA LYSIS WITH REFLE X MICRO SCOPI C bacteria, urine Negati ve /hpf negati ve Not Available [facility] [address] [place] [address], [address], 12/11/2024 19:39:08 12/11/19 25 12/11/2024 URINA LYSIS WITH REFLE X MICRO SCOPI C hyaline casts, urine 0.0 /lpf 0-3 Not Available [facility] [address] [place] [address], [address], 12/11/2024 19:39:08 12/11/19 25 12/11/2024 URINA LYSIS WITH REFLE X MICRO SCOPI C note See Report [facility], [address] [facility], [place], [place] [id number] Not Available [facility] [address] [place], [address], 12/11/2024 19:39:08 12/11/19 25 12/11/2024 CULTU RE WOUND DEEP .note See Note Origi nal Order ing Provi eliot: NANO IA T MARTO CONNIE [facility] - [address] [facility] , [place], [place] [id number] Not Available [facility] [address] [place], [address], 12/15/2024 12:35:17 12/11/19 25 12/11/2024 CULTU RE [...] 1224 EST. Not Available [facility] [address] [place], [address], 12/15/2024 12:35:17 12/11/19 25 12/11/2024 CULTU RE WOUND DEEP gram stain result No polymo rphonu clear leukoc ytes, No epithe lial cells, and No organi sms noted Not Available [facility] [address] [place], [address], 12/15/2024 12:35:17 12/11/19 25 12/11/2024 CULTU RE [...] Susc Islt 0.5 S Not Available [facility] [employer] [facility] [address] [place] [address], [address], 12/15/2024 12:35:17 12/11/1912/11/2024 CHLAM YDIA TRACH OMATI S AND NEISS ERIA GONOR RHOEA E MOLEC ULAR STUDY .note See Note Origi nal Order ing Provi eliot: NANO YOUSIF CONNIE [facility] - [address] [facility], [place] [place] [place], [place] [id number] Not Available [facility] [employer] [facility] [address] [place] [address], [address], 12/12/2024 09:15:45 12/11/1912/11/2024 CHLAM YDIA TRACH OMATI S AND NEISS ERIA GONOR RHOEA E MOLEC ULAR STUDY neisseria gonorrhoeae PCR Negati ve negati ve Not Available [facility] [employer] [facility] [address] [place], [address], 12/12/2024 09:15:45 12/11/1912/11/2024 CHLAM YDIA TRACH OMATI S AND NEISS ERIA GONOR RHOEA E MOLEC ULAR STUDY chlamydia trachomatis PCR Negati ve negati ve Not Available [facility] [address] [place], [address], 12/12/2024 09:15:45 12/11/19 25 12/11/2024 CHLAM YDIA TRACH OMATI S AND NEISS ERIA GONOR RHOEA E MOLEC ULAR STUDY .note See Note Origi nal Order ing Provi eliot: NANO YOUSIF CONNIE [facility] - [address] [facility], [facility], [facility] [place] [phone] Not Available [facility] [address] [place] [address], [address], 12/12/2024 09:15:47 12/11/19 25 12/11/2024 CHLAM YDIA TRACH OMATI S AND NEISS ERIA GONOR RHOEA E MOLEC ULAR STUDY neisseria gonorrhoeae PCR Negati ve negati ve Not Available [facility] [address] [place] [address], [address], 12/12/2024 09:15:47 12/11/19 25 12/11/2024 CHLAM YDIA TRACH OMATI S AND NEISS ERIA GONOR RHOEA E MOLEC ULAR STUDY chlamydia trachomatis PCR Negati ve negati ve Not Available [facility] [address] [place] [address], [address], 12/12/2024 09:15:47 12/11/19 25 12/11/2024 CHLAM YDIA TRACH OMATI S AND NEISS ERIA GONOR RHOEA E MOLEC ULAR STUDY .note See Note Origi nal Order ing Provi eliot: NANO YOUSIF CONNIE [facility] - [address] [facility], [facility], [facility] [place] [id number] Not Available [facility] [address] [place] [address], [address], 12/12/2024 09:30:50 12/11/19 25 12/11/2024 CHLAM YDIA TRACH OMATI S AND NEISS ERIA GONOR RHOEA E MOLEC ULAR STUDY neisseria gonorrhoeae PCR Negati ve negati ve Not Available [facility] [address] [place] [address], [address], 12/12/2024 09:30:50 12/11/19 25 12/11/2024 CHLAM YDIA TRACH OMATI S AND NEISS ERIA GONOR RHOEA E MOLEC ULAR STUDY chlamydia trachomatis PCR Negati ve negati ve Not Available [facility] [address] [place], [address], 12/12/2024 09:30:50 12/11/19 25 12/12/2024 CBC/D /PLT W/ REFLE X JUANCARLOS TIN WBC 6.4 x10e3 /uL 3.4-10 .8 normal Not Available [facility] ([facility]) [address] [place], [address], 12/14/2024 12:05:45 12/11/19 25 12/12/2024 CBC/D /PLT W/ REFLE X JUANCARLOS TIN RBC 5.06 x10e6 /uL 4.14-5 .80 normal Not Available [facility] ([facility]) [address] [place], [address], 12/14/2024 12:05:45 12/11/19 25 12/12/2024 CBC/D /PLT W/ REFLE X JUANCARLOS TIN hemoglobin 15.8 g/dL 13.0-1 7.7 normal Not Available [facility] ([facility]) [address] [place], [address], 12/14/2024 12:05:45 12/11/19 25 12/12/2024 CBC/D /PLT W/ REFLE X JUANCARLOS TIN hematocrit 45.1 % 37.5-5 1.0 normal Not Available [facility] ([facility]) [address] [place], [address], 12/14/2024 12:05:45 12/11/19 25 12/12/2024 CBC/D /PLT W/ REFLE X JUANCARLOS TIN MCV 89 fL 79-97 normal Not Available [facility] ([facility]) [address] [place], [address], 12/14/2024 12:05:45 12/11/19 25 12/12/2024 CBC/D /PLT W/ REFLE X JUANCARLOS TIN MCH 31.2 pg 26.6-3 3.0 normal Not Available [facility] ([facility]) [address] [facility], [place], [address], 12/14/2024 12:05:45 12/11/19 25 12/12/2024 CBC/D /PLT W/ REFLE X JUANCARLOS TIN MCHC 35.0 g/dL 31.5-3 5.7 normal Not Available [facility] ([facility]) [address] [place], [address], 12/14/2024 12:05:45 12/11/19 25 12/12/2024 CBC/D /PLT W/ REFLE X JUANCARLOS TIN RDW 12.1 % 11.6-1 5.4 Not Available [facility] ([facility]) [address] [facility], [place], [address], 12/14/2024 12:05:45 12/11/19 25 12/12/2024 CBC/D /PLT W/ REFLE X JUANCARLOS TIN platelets 268 x10e3 /uL 150-45 0 normal Not Available [facility] ([facility]) [address] [place], [address], 12/14/2024 12:05:45 12/11/19 25 12/12/2024 CBC/D /PLT W/ REFLE X JUANCARLOS TIN neutrophils 57 % not estab. normal Not Available [facility] ([facility]) [address] [place], [address], 12/14/2024 12:05:45 12/11/19 25 12/12/2024 CBC/D /PLT W/ REFLE X JUANCARLOS TIN lymphs 35 % not estab. normal Not Available [facility] ([facility]) [address] [place], [address], 12/14/2024 12:05:45 12/11/19 25 12/12/2024 CBC/D /PLT W/ REFLE X JUANCARLOS TIN monocytes 7 % not estab. normal Not Available [facility] ([facility]) [address] [facility], [place], [address], 12/14/2024 12:05:45 12/11/19 25 12/12/2024 CBC/D /PLT W/ REFLE X JUANCARLOS TIN eos 1 % not estab. normal Not Available [facility] ([facility]) [address] [place], [address], 12/14/2024 12:05:45 12/11/19 25 12/12/2024 CBC/D /PLT W/ REFLE X JUANCARLOS TIN basos 0 % not estab. normal Not Available [facility] ([facility]) [address] [facility], [place], [address], 12/14/2024 12:05:45 12/11/19 25 12/12/2024 CBC/D /PLT W/ REFLE X JUANCARLOS TIN immature cells [employer] Not Available [facility] ([facility]) [address] [facility], [place], [address], 12/14/2024 12:05:45 12/11/19 25 12/12/2024 CBC/D /PLT W/ REFLE X JUANCARLOS TIN neutrophils (absolute) 3.6 x10e3 /uL 1.4-7. 0 normal Not Available [facility] ([facility]) [address] [place], [address], 12/14/2024 12:05:45 12/11/19 25 12/12/2024 CBC/D /PLT W/ REFLE X JUANCARLOS TIN lymphs (absolute) 2.3 x10e3 /uL 0.7-3. 1 normal Not Available [facility] ([facility]) [address] [place], [address], 12/14/2024 12:05:45 12/11/19 25 12/12/2024 CBC/D /PLT W/ REFLE X JUANCARLOS TIN monocytes(ab solute) 0.4 x10e3 /uL 0.1-0. 9 normal Not Available [facility] ([facility]) [address] [facility], [place], [address], 12/14/2024 12:05:45 12/11/19 25 12/12/2024 CBC/D /PLT W/ REFLE X JUANCARLOS TIN eos (absolute) 0.1 x10e3 /uL 0.0-0. 4 normal Not Available [facility] ([facility]) [address] [facility], [place], [address], 12/14/2024 12:05:45 12/11/19 25 12/12/2024 CBC/D /PLT W/ REFLE X JUANCARLOS TIN baso (absolute) 0.0 x10e3 /uL 0.0-0. 2 normal Not Available [facility] ([facility]) [address] [facility], [place], [address], 12/14/2024 12:05:45 12/11/19 25 12/12/2024 CBC/D /PLT W/ REFLE X JUANCARLOS TIN immature granulocytes 0 % not estab. Not Available [facility] ([facility]) [address] [place], [address], 12/14/2024 12:05:45 12/11/19 25 12/12/2024 CBC/D /PLT W/ REFLE X JUANCARLOS TIN immature grans (abs) 0.0 x10e3 /uL 0.0-0. 1 Not Available [facility] ([facility]) [address] [place], [address], 12/14/2024 12:05:45 12/11/19 25 12/12/2024 CBC/D /PLT W/ REFLE X JUANCARLOS TIN NRBC [employer] Not Available [facility] ([facility]) [address] [facility], [place], [address], 12/14/2024 12:05:45 12/11/19 25 12/12/2024 CBC/D /PLT W/ REFLE X JUANCARLOS TIN hematology comments: [employer] Not Available [facility] ([facility]) [address] [facility], [place], [address], 12/14/2024 12:05:45 12/11/19 25 12/12/2024 URINA LYSIS , COMPL ETE specific gravity 1.008 1.005- 1.030 normal Not Available [facility] ([facility]) [address] [facility], [place], [address], 12/14/2024 12:05:46 12/11/19 25 12/12/2024 URINA LYSIS , COMPL ETE pH 6.0 5.0-7. 5 normal Not Available [facility] ([facility]) [address] [facility], [place], [address], 12/14/2024 12:05:46 12/11/19 25 12/12/2024 URINA LYSIS , COMPL ETE urine-color Yellow yellow Not Available [facility] ([facility]) [address] [facility], [place], [address], 12/14/2024 12:05:46 12/11/19 25 12/12/2024 URINA LYSIS , COMPL ETE appearance Clear clear Not Available [facility] ([facility]) [address] [facility], [place], [address], 12/14/2024 12:05:46 12/11/19 25 12/12/2024 URINA LYSIS , COMPL ETE WBC esterase Negati ve negati ve Not Available [facility] ([facility]) [address] [facility], [place], [address], 12/14/2024 12:05:46 12/11/19 25 12/12/2024 URINA LYSIS , COMPL ETE protein Negati ve negati ve/tra ce Not Available [facility] ([facility]) [address] [place], [address], 12/14/2024 12:05:46 12/11/19 25 12/12/2024 URINA LYSIS , COMPL ETE glucose Negati ve negati ve Not Available [facility] ([facility]) [address] [place], [address], 12/14/2024 12:05:46 12/11/19 25 12/12/2024 URINA LYSIS , COMPL ETE ketones Negati ve negati ve Not Available [facility] ([facility]) [address] [place], [address], 12/14/2024 12:05:46 12/11/19 25 12/12/2024 URINA LYSIS , COMPL ETE occult blood Negati ve negati ve Not Available [facility] ([facility]) [address] [place], [address], 12/14/2024 12:05:46 12/11/19 25 12/12/2024 URINA LYSIS , COMPL ETE bilirubin Negati ve negati ve Not Available [facility] ([facility]) [address] [place], [address], 12/14/2024 12:05:46 12/11/19 25 12/12/2024 URINA LYSIS , COMPL ETE urobilinogen ,semi-qn 0.2 mg/dL 0.2-1. 0 normal Not Available [facility] ([facility]) [address] [place], [address], 12/14/2024 12:05:46 12/11/19 25 12/12/2024 URINA LYSIS , COMPL ETE nitrite, urine Negati ve negati ve Not Available [facility] ([facility]) [address] [place], [address], 12/14/2024 12:05:46 12/11/19 25 12/12/2024 URINA LYSIS , COMPL ETE microscopic examination Commen t Micro scopi c follo ws if indic ated. Not Available [facility] ([facility]) [address] [facility], [place], [address], 12/14/2024 12:05:46 12/11/19 25 12/12/2024 URINA LYSIS , COMPL ETE microscopic examination See below: Micro scopi c was indic ated and was perfo rmed. Not Available [facility] ([facility]) [address] [facility], [place], [address], 12/14/2024 12:05:46 12/11/19 25 12/12/2024 URINA LYSIS , COMPL ETE WBC None seen /hpf 0 - 5 Not Available [facility] ([facility]) [address] [facility], [place], [address], 12/14/2024 12:05:46 12/11/19 25 12/12/2024 URINA LYSIS , COMPL ETE RBC 0-2 /hpf 0 - 2 Not Available [facility] ([facility]) [address] [facility], [place], [address], 12/14/2024 12:05:46 12/11/19 25 12/12/2024 URINA LYSIS , COMPL ETE epithelial cells (non renal) None seen /hpf 0 - 10 Not Available [facility] ([facility]) [address] [facility], [place], [address], 12/14/2024 12:05:46 12/11/19 25 12/12/2024 URINA LYSIS , COMPL ETE epithelial cells (renal) [employer] Not Available [facility] ([facility]) [address] [facility], [place], [address], 12/14/2024 12:05:46 12/11/19 25 12/12/2024 URINA LYSIS , COMPL ETE casts None seen /lpf none seen Not Available [facility] ([facility]) [address] [facility], [place], [address], 12/14/2024 12:05:46 12/11/19 25 12/12/2024 URINA LYSIS , COMPL ETE cast type [employer] Not Available [facility] ([facility]) [address] [facility], [place], [address], 12/14/2024 12:05:46 12/11/19 25 12/12/2024 URINA LYSIS , COMPL ETE crystals [employer] Not Available [facility] ([facility]) [address] [facility] [place], [address], 12/14/2024 12:05:46 12/11/19 25 12/12/2024 URINA LYSIS , COMPL ETE crystal type [employer] Not Available [facility] ([facility]) [address] [facility], [place], [address], 12/14/2024 12:05:46 12/11/19 25 12/12/2024 URINA LYSIS , COMPL ETE mucus threads [employer] Not Available [facility] ([facility]) [address] [place], [address], 12/14/2024 12:05:46 12/11/19 25 12/12/2024 URINA LYSIS , COMPL ETE bacteria None seen none seen/f ew Not Available [facility] ([facility]) [address] [place], [address], 12/14/2024 12:05:46 12/11/19 25 12/12/2024 URINA LYSIS , COMPL ETE yeast [employer] Not Available [facility] ([facility]) [address] [place], [address], 12/14/2024 12:05:46 12/11/19 25 12/12/2024 URINA LYSIS , COMPL ETE trichomonas [employer] Not Available [facility] ([facility]) [address] [place], [address], 12/14/2024 12:05:46 12/11/19 25 12/12/2024 URINA LYSIS , COMPL ETE comment [employer] Not Available [facility] ([facility]) [address] [facility], [place], [address], 12/14/2024 12:05:46 12/11/19 25 12/13/2024 CT/GC /TV PATRICIA+M YCOPL ASMAS URINE mycoplasma genitalium PATRICIA Negati ve negati ve Not Available [facility] ([facility]) [address] [facility], [place], [address], 12/14/2024 12:05:46 12/11/19 25 12/13/2024 CT/GC /TV PATRICIA+M YCOPL ASMAS URINE mycoplasma hominis PATRICIA Negati ve negati ve Not Available [facility] ([facility]) [address] [facility], [place], [address], 12/14/2024 12:05:46 12/11/19 25 12/13/2024 CT/GC /TV PATRICIA+M YCOPL ASMAS URINE ureaplasma spp PATRICIA Negati ve negati ve Not Available [facility] ([facility]) [address] [facility], [place], [address], 12/14/2024 12:05:46 12/11/19 25 12/13/2024 CT/GC /TV PATRICIA+M YCOPL ASMAS URINE trich vag by PATRICIA Negati ve negati ve Not Available [facility] ([facility]) [address] [facility], [place], [address], 12/14/2024 12:05:46 12/11/19 25 12/13/2024 CT/GC /TV PATRICIA+M YCOPL ASMAS URINE chlamydia trachomatis, PATRICIA Negati ve negati ve Not Available [facility] ([facility]) [address] [facility], [place], [address], 12/14/2024 12:05:46 01/29/20 25 12/13/2024 CT/GC /TV PATRICIA+M YCOPL ASMAS URINE neisseria gonorrhoeae, PATRICIA Negati ve negati ve Not Available [facility] ([facility]) [address] [facility], [place], [address], 12/14/2024 12:05:46 12/11/19 25 12/12/2024 RNA, REAL TIME PCR (GRAP H) HIV-1 RNA by PCR <20 copie s/mL HIV-1 RNA not detec daphnie The repor table range for this assay is 20 to 10,00 0,000 copie s HIV-1 RNA/m L. Not Available [facility] ([facility]) [address] [facility], [place], [address], 12/14/2024 12:05:47 12/11/19 25 12/12/2024 RNA, REAL TIME PCR (GRAP H) log10 HIV-1 RNA COMMEN T log10 copy/ mL Unabl e to calcu late resul t since non-n umeri c resul t obtai verena for compo nent test. Not Available [facility] ([facility]) [address] [facility], [place], [address], 12/14/2024 12:05:47 12/11/19 25 12/13/2024 RNA, REAL TIME PCR (GRAP H) pdf . Not Available [facility] ([facility]) [address] [place], [address], 12/14/2024 12:05:47 12/11/19 25 12/12/2024 CD4+L YMPHS absolute cd 4 helper 846 /uL 359-15 19 Not Available [facility] ([facility]) [address] [place], [address], 12/14/2024 12:05:47 12/11/19 25 12/12/2024 CD4+L YMPHS % cd 4 pos. lymph. 36.8 % 30.8-5 8.5 Not Available [facility] ([facility]) [address] [place], [address], 12/14/2024 12:05:47 12/11/1912/12/2024 GLOM FILT RATE, ESTIM ATED creatinine 1.00 mg/dL 0.76-1 .27 normal Not Available [facility] ([facility]) [address] [facility] [place], [address], 12/14/2024 12:05:47 12/11/1912/12/2024 GLOM FILT RATE, ESTIM ATED eGFR 109 mL/mi n/1.7 3 >59 normal Not Available [facility] ([facility]) [address] [facility] [place], [address], 12/14/2024 12:05:47 12/11/1912/12/2024 RPR, RFX QN RPR/C ONFIR M TP RPR Non Reacti ve non reacti ve Not Available [facility] ([facility]) [address] [facility] [place], [address], 12/14/2024 12:05:48 12/11/1912/12/2024 AST (SGOT ) AST (SGOT) 75 IU/L 0-40 above high normal Not Available [facility] ([facility]) [address] [facility] [place], [address], 12/14/2024 12:05:48 12/11/1912/12/2024 ALT (SGPT ) ALT (SGPT) 141 IU/L 0-44 above high normal Not Available [facility] ([facility]) [address] [facility] [place], [address], 12/14/2024 12:05:48 12/11/1912/12/2024 HBSAG SCREE N HBsAg screen Negati ve negati ve Not Available [facility] ([facility]) [address] [facility] [place], [address], 12/14/2024 12:05:48 12/11/19 25 12/14/2024 URINE CULTU RE,CO MPREH ENSIV E urine culture,comp rehensive Final report Not Available [facility] ([facility]) [address] [facility], [place], [address], 12/14/2024 12:05:49 12/11/19 25 12/14/2024 URINE CULTU RE,CO MPREH ENSIV E result 1 COMMEN T No growt h in 48 hours . Not Available [facility] ([facility]) [address] [facility], [place], [address], 12/14/2024 12:05:49 12/11/19 25 12/11/2024 CHLAM YDIA TRACH OMATI S AND NEISS ERIA GONOR RHOEA E MOLEC ULAR STUDY .note See Note Origi nal Order ing Provi eliot: NANO YOUSIF CONNIE [facility] - [address] [facility], [facility] d, [facility] [place] [id number] Not Available [facility] [address] [place] [address], [address], 05/26/2025 14:27:11 12/11/19 25 12/11/2024 CHLAM YDIA TRACH OMATI S AND NEISS ERIA GONOR RHOEA E MOLEC ULAR STUDY neisseria gonorrhoeae PCR Negati ve negati ve This speci men type has not been evalu ated for this metho d. Inter pret resul ts with cauti on. RECTU M Not Available [facility] [address] [place], [address], 05/26/2025 14:27:11 12/11/19 25 12/11/2024 CHLAM YDIA TRACH OMATI S AND NEISS ERIA GONOR RHOEA E MOLEC ULAR STUDY chlamydia trachomatis PCR Negati ve negati ve This speci men type has not been evalu ated for this metho d. Inter pret resul ts with cauti on. RECTU M Not Available [facility] [address] [place] [address], [address], 05/26/2025 14:27:11 12/11/19 25 12/11/2024 CHLAM YDIA TRACH OMATI S AND NEISS ERIA GONOR RHOEA E MOLEC ULAR STUDY .note See Note Origi nal Order ing Provi eliot: NANO Bo MARTAndrea CONNIE [facility] - [address] [facility], [place], [place] [id number] Not Available [facility] [employer] [facility] [address] [place] [address], [address], 05/27/2025 13:03:03 12/11/19 25 12/11/2024 CHLAM YDIA TRACH OMATI S AND NEISS ERIA GONOR RHOEA E MOLEC ULAR STUDY neisseria gonorrhoeae PCR Negati ve negati ve This speci men type has not been evalu ated for this metho d. Inter pret resul ts with cauti on. THROA T Not Available [facility] [employer] [facility] [address] [place], [address], 05/27/2025 13:03:03 12/11/19 25 12/11/2024 CHLAM YDIA TRACH OMATI S AND NEISS ERIA GONOR RHOEA E MOLEC ULAR STUDY chlamydia trachomatis PCR Negati ve negati ve This speci men type has not been evalu ated for this metho d. Inter pret resul ts with cauti on. THROA T Not Available [facility] [address] [place] [address], [address], 05/27/2025 13:03:03 12/18/19 25 12/18/2024 TADEO FIBRO SURE( R) PLUS methodology: Commen t The rafa cuco teste d are perfo rmed by Fibro Sure- Speci fic metho ds. Not inten ded for use with other diagn ostic consi derat ions. Not Available [facility] ([facility]) [address] [facility], [place], [address], 12/26/2024 14:06:17 12/18/19 25 12/18/2024 TADEO FIBRO SURE( R) PLUS interpretati ons: Commen t Quant itati ve resul ts of 10 bioch emica ls in combi natio n with age and gende r, are rafa zed using a compu tatio nal algor ithm to provi de a quant itati ve surro gate marke r (0.0- 1.0) of liver fibro sis ([place] vir F0-F4 ), hepat ic steat osis [...] fican t NAFLD /MASL D fibro sis ([place] vir F2-F4 ) and 11% had cirrh [...] y of 71%.[ 3] Not Available [facility] ([facility]) [address] [place], [address], 12/26/2024 14:06:17 12/18/1912/18/2024 TADEO FIBRO SURE( R) [...] F4 - Cirrh osis Not Available [facility] ([facility]) [address] [place], [address], 12/26/2024 14:06:17 12/18/1912/18/2024 TADEO FIBRO SURE( R) PLUS steatosis scoring Commen t <=0.4 0 = S0 - No Steat osis (<5%) 0.40 - 0.55 = S1 - Mild Steat osis (but Clini kiki Signi fican t) (5-33 %) >0.55 = S2S3- Moder ate to Sever e Steat osis (Clin icall y Signi fican t) (34-1 00%) Not Available [facility] ([facility]) [address] [place], [address], 12/26/2024 14:06:17 12/18/1912/18/2024 TADEO FIBRO SURE( R) PLUS tadeo scoring Commen t <=0.2 5 = N0 - No TADEO/ MASH 0.25 - 0.50 = N1 - Mild TADEO/ MASH 0.50 - 0.75 = N2 - Moder ate TADEO/ MASH >0.75 = N3 - Sever e TADEO/ MASH Not Available [facility] ([facility]) [address] [place], [address], 12/26/2024 14:06:17 12/18/19 25 12/18/2024 TADEO FIBRO [...] s of fibro sis. Not Available [facility] ([facility]) [address] [facility], [place], [address], 12/26/2024 14:06:17 12/18/19 25 12/18/2024 TADEO FIBRO [...] conta ct custo nany servi ce at [phone]. Refer ences : 1. Vahe kowalski V. et al. Diagn ostic Value of Bioch emica l Marke rs (Fibr oTest ) for the predi ction of Liver Fibro sis in patie nts with Non-A lcoho lic Fatty Liver Disea se. [facility] Gast[facility] oente rolog y 2006; 6:6. 2. Mira oneal T. et al. The Diagn ostic [...] 2017; 30:56 9-577 . Not Available [facility] ([facility]) [address] [place], [address], 12/26/2024 14:06:17 12/18/19 25 12/25/2024 TADEO FIBRO SURE( R) PLUS fibrosis score 0.09 0.00-0 .21 Not Available [facility] ([facility]) [address] [place], [address], 12/26/2024 14:06:17 12/18/19 25 12/25/2024 TADEO FIBRO SURE( R) PLUS fibrosis stage Commen t F0 - No fibro sis Not Available [facility] ([facility]) [address] [place], [address], 12/26/2024 14:06:17 12/18/19 25 12/25/2024 TADEO FIBRO SURE( R) PLUS steatosis score 0.32 0.00-0 .40 Not Available [facility] ([facility]) [address] [place], [address], 12/26/2024 14:06:17 12/18/19 25 12/25/2024 TADEO FIBRO SURE( R) PLUS steatosis grade Commen t S0 - No Steat osis (<5%) Not Available [facility] ([facility]) [address] [place], [address], 12/26/2024 14:06:17 12/18/19 25 12/25/2024 TADEO FIBRO SURE( R) PLUS tadeo score 0.00 0.00-0 .25 Not Available [facility] ([facility]) [address] [place], [address], 12/26/2024 14:06:17 12/18/19 25 12/25/2024 TADEO FIBRO SURE( R) PLUS tadeo grade Commen t N0 - No TADEO Not Available [facility] ([facility]) [address] [place], [address], 12/26/2024 14:06:17 12/18/19 25 12/25/2024 TADEO FIBRO SURE( R) PLUS alpha 2-macroglobu ashish, qn 147 mg/dL 110-27 6 Not Available [facility] ([facility]) [address] [place], [address], 12/26/2024 14:06:17 12/18/19 25 12/25/2024 TADEO FIBRO SURE( R) PLUS haptoglobin 90 mg/dL 17-317 Not Available [facility] ([facility]) [address] [place], [address], 12/26/2024 14:06:17 12/18/19 25 12/25/2024 TADEO FIBRO SURE( R) PLUS apolipoprote in A-1 133 mg/dL 101-17 8 Not Available [facility] ([facility]) [address] [place], [address], 12/26/2024 14:06:17 12/18/19 25 12/25/2024 TADEO FIBRO SURE( R) PLUS bilirubin, total 0.6 mg/dL 0.0-1. 2 Not Available [facility] ([facility]) [address] [place], [address], 12/26/2024 14:06:17 12/18/19 25 12/25/2024 TADEO FIBRO SURE( R) PLUS GGT 19 IU/L 0-65 Not Available [facility] ([facility]) [address] [place], [address], 12/26/2024 14:06:17 12/18/19 25 12/25/2024 TADEO FIBRO SURE( R) PLUS ALT (SGPT) p5p 91 IU/L 0-55 above high normal Not Available [facility] ([facility]) [address] [place], [address], 12/26/2024 14:06:17 12/18/19 25 12/25/2024 TADEO FIBRO SURE( R) PLUS AST (SGOT) p5p 36 IU/L 0-40 Not Available [facility] ([facility]) [address] [place], [address], 12/26/2024 14:06:17 12/18/19 25 12/25/2024 TADEO FIBRO SURE( R) PLUS cholesterol, total 272 mg/dL 100-19 9 above high normal Not Available [facility] ([facility]) [address] [place], [address], 12/26/2024 14:06:17 12/18/19 25 12/25/2024 TADEO FIBRO SURE( R) PLUS glucose, serum 93 mg/dL 70-99 Not Available [facility] ([facility]) [address] [place], [address], 12/26/2024 14:06:17 12/18/19 25 12/25/2024 TADEO FIBRO SURE( R) PLUS triglyceride s 73 mg/dL 0-149 Not Available [facility] ([facility]) [address] [place], [address], 12/26/2024 14:06:17 12/18/19 25 12/19/2024 HEPAT IC FUNCT ION PANEL (7) protein, total 7.5 g/dL 6.0-8. 5 normal Not Available [facility] ([facility]) [address] [place], [address], 12/26/2024 14:06:18 12/18/19 25 12/19/2024 HEPAT IC FUNCT ION PANEL (7) albumin 5.0 g/dL 4.3-5. 2 normal Not Available [facility] ([facility]) [address] [facility], [place], [address], 12/26/2024 14:06:18 12/18/19 25 12/19/2024 HEPAT IC FUNCT ION PANEL (7) bilirubin, total 0.6 mg/dL 0.0-1. 2 normal Not Available [facility] ([facility]) [address] [facility], [place], [address], 12/26/2024 14:06:18 12/18/19 25 12/19/2024 HEPAT IC FUNCT ION PANEL (7) bilirubin, direct 0.17 mg/dL 0.00-0 .40 normal Not Available [facility] ([facility]) [address] [place], [address], 12/26/2024 14:06:18 12/18/19 25 12/19/2024 HEPAT IC FUNCT ION PANEL (7) alkaline phosphatase 88 IU/L 44-121 normal Not Available [facility] ([facility]) [address] [facility], [place], [address], 12/26/2024 14:06:18 12/18/19 25 12/19/2024 HEPAT IC FUNCT ION PANEL (7) AST (SGOT) 34 IU/L 0-40 normal Not Available [facility] ([facility]) [address] [facility], [place], [address], 12/26/2024 14:06:18 12/18/19 25 12/19/2024 HEPAT IC FUNCT ION PANEL (7) ALT (SGPT) 72 IU/L 0-44 above high normal Not Available [facility] ([facility]) [address] [place], [address], 12/26/2024 14:06:18 12/18/19 25 12/19/2024 HCV ANTIB [...] e HCV infec tion. Not Available [facility] ([facility]) [address] [facility], [place], [address], 12/26/2024 14:06:19 06/13/2006/13/2025 CHLAM YDIA TRACH OMATI S AND NEISS ERIA GONOR RHOEA E MOLEC ULAR STUDY .note See Note Origi nal Order ing Provi eliot: NANO YOUSIF CONNIE [facility] - [address] [facility], [place], [place] [id number] Not Available [facility] [employer] [facility] [employer] [facility] [address] [place] [address], [address], 06/14/2025 11:00:11 06/13/20 25 06/13/2025 CHLAM YDIA TRACH OMATI S AND NEISS ERIA GONOR RHOEA E MOLEC ULAR STUDY neisseria gonorrhoeae PCR Negati ve negati ve Not Available [facility] [employer] [employer] [facility] [address] [place] [address], [address], 06/14/2025 11:00:11 06/13/20 25 06/13/2025 CHLAM YDIA TRACH OMATI S AND NEISS ERIA GONOR RHOEA E MOLEC ULAR STUDY chlamydia trachomatis PCR Negati ve negati ve Not Available [facility] [employer] [facility] [address] [place] [address], [address], 06/14/2025 11:00:11 06/13/20 25 06/13/2025 CHLAM YDIA TRACH OMATI S AND NEISS ERIA GONOR RHOEA E MOLEC ULAR STUDY .note See Note Origi nal Order ing Provi eliot: NANO WALKER Betzy YOUSIF CONNIE [facility] - [address] [facility], [place], [place] [id number] Not Available [facility] [employer] [facility] [address] [place] [address], [address], 06/14/2025 11:00:12 06/13/20 25 06/13/2025 CHLAM YDIA TRACH OMATI S AND NEISS ERIA GONOR RHOEA E MOLEC ULAR STUDY neisseria gonorrhoeae PCR Negati ve negati ve Not Available [facility] [address] [place], [address], 06/14/2025 11:00:12 06/13/20 25 06/13/2025 CHLAM YDIA TRACH OMATI S AND NEISS ERIA GONOR RHOEA E MOLEC ULAR STUDY chlamydia trachomatis PCR Negati ve negati ve Not Available [facility] [address] [place], [address], 06/14/2025 11:00:12 06/13/20 25 06/13/2025 SARS- COV2- RNA, RSV, FLU A AND B QUALI TATIV E RT-PC R .note See Note Origi nal Order ing Provi eliot: NANO Bo MARTO CONNIE [facility] - [address] [place] [address], [place], [place] [id number] Not Available [facility] [address] [place] [address], [address], 06/14/2025 14:21:27 06/13/2006/13/2025 SARS- COV2- RNA, RSV, FLU A AND B QUALI TATIV E RT-PC R sars cov-2 Not Detect ed not detect ed Discl aimer : The paula r in which this infor matanusha n is used to guide patie nt care is the respo nsibi lity of [facility] prov[facility] eliot. Testi ng was perfo [...] Provi ders can be found at: https ://Unowhy.[employer] .gov/ media /8715 78/do wnloa d Fact sheet for Patie nts can be found at: https ://Unowhy.[employer] .gov/ media /1371 81/do wnloa d Not Available [facility] [address] [place], [address], 06/14/2025 14:21:27 06/13/20 25 06/13/2025 SARS- COV2- RNA, RSV, FLU A AND B QUALI TATIV E RT-PC R influenza A PCR Not Detect ed not detect ed Not Available [facility] [address] [place] [address], [address], 06/14/2025 14:21:27 06/13/20 25 06/13/2025 SARS- COV2- RNA, RSV, FLU A AND B QUALI TATIV E RT-PC R influenza B PCR Not Detect ed not detect ed Not Available [facility] [address] [place], [address], 06/14/2025 14:21:27 06/13/20 25 06/13/2025 SARS- COV2- RNA, RSV, FLU A AND B QUALI TATIV E RT-PC R RSV PCR Not Detect ed not detect ed Not Available [facility] [address] [place] [address], [address], 06/14/2025 14:21:27 06/13/20 25 06/13/2025 CHLAM YELISAA MYNOR BARBERATI S AND NEISS CARIDADIA KEN CARMONA STUDY .note See Note Origi nal Order ing Provi eliot: NANO YOUSIF CONNIE [facility] - [address] [facility], [place], [place] [id number] Not Available [facility] [address] [place] [address], [address], 06/14/2025 15:10:29 06/13/20 25 06/13/2025 CHLAM YDIA TRACH OMATI S AND NEISS ERIA GONOR RHOEA E MOLEC ULAR STUDY neisseria gonorrhoeae PCR Negati ve negati ve Not Available [facility] [address] [place], [address], 06/14/2025 15:10:29 06/13/20 25 06/13/2025 CHLAM YDIA TRACH OMATI S AND NEISS ERIA GONOR RHOEA E MOLEC ULAR STUDY chlamydia trachomatis PCR Negati ve negati ve Not Available [facility] [address] [place], [address], 06/14/2025 15:10:29 01/09/20 25 01/08/2025 US, abdom en No observ ation record ed. [email or web address] Not Available 2024 11:02:03 Result Notes None recorded. 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 Active 2020 Human immunodef iciency virus infection ; snomeddes cription: Human immunodef iciency virus infection ; Report Immunity to Registry: Yes; Human immunodef iciency virus [HIV] disease; snomeddes cription: Human immunodef iciency virus infection ; Report Immunity to Registry: Yes; Not Available [facility] 4 06:58:47 Genital herpes simplex 06243357 Active 2020 Genital herpes simplex; snomeddes cription: Genital herpes simplex; Report Immunity to Registry: Yes; Notes: HSV 2 positive serology 11/2020; Not Available [facility] 4 06:58:47 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 l herpesvir al infection , unspecifi ed; snomeddes cription: Genital herpes simplex; Report Immunity to Registry: Yes; Notes: HSV 2 positive serology 11/2020; Not Available [facility] 4 06:58:47 Gonorrhea of rectum 77901384 Active 2021 Gonorrhea of rectum; snomeddes cription: Gonorrhea of rectum; Report Immunity to Registry: Yes; Notes: s/p ceftraixo ne 11/2021 rectal and oral; Not Available [facility] 4 06:58:47 Infection of anus and rectum caused by Neisseria gonorrhoe ae [id number] 54151 Active 2021 Gonococca l infection of anus and rectum; snomeddes cription: Gonorrhea of rectum; Report Immunity to Registry: Yes; Notes: s/p ceftraixo ne 11/2021 rectal and oral; Not Available [facility] 4 06:58:48 Fibromyal leroy 493096625 Active 2022 Fibromyal leroy; snomeddes cription: Fibromyal leroy; Report Immunity to Registry: Yes; Fibromya lgia; snomeddes cription: Fibromyal leroy; Report Immunity to Registry: Yes; Not Available [facility] 4 06:58:47 Problem Notes None recorded. Medical [...] /min 12 /min 98.3 [degF] 25.7 kg/m2 59000.0 7 g 130/80 mm[Hg] Melissa ROBLES MD [facility] 5 10:50:15 Date Recorded Body height Provider Name an d Address Organization Details Last Updated DateTime 06/13/2025 175.26 cm Yadira ROBLES MD [facility] 06/13/2025 15:01:26 Date Recorded Body height Heart rate Respiratory rate Body temperature Body mass index (BMI) Body weight Oxygen saturation Oxygen saturation in Arterial blood by Pulse oximetry Systolic And Diastolic Provider Name and Address Organization Details Last Updated DateTime 4 175.26 cm 96 /min 10 /min 98.6 [degF] 25.4 kg/m2 96936.8 9 g 97 % 97 % 116/80 mm[Hg] Yadira ROBLES MD [facility] 4 14:44:24 Date Recorded Body height Respiratory rate Body temperature Body mass index (BMI) Body weight Systolic And Diastolic Provider Name and Address Organization Details Last Updated DateTime 4 175.26 cm 10 /min 99.7 [degF] 25.4 kg/m2 74750.8 9 g 100/78 mm[Hg] Yadira ROBLES MD [facility] 4 14:10:26 Social History None recorded. Functional Status None recorded. Mental Status None recorded. Family History Nothing Reported. Medical History No medical history recorded. Past Encounters Encounter ID Performer Location Encounter Start Date Encounter Closed Date Diagnosis/Indication Diagnosis SNOMED-CT Code Diagnosis ICD10 Code Diagnosis IMO Codes Diagnosis Note [id number] Joseph Robles MD Main Office [address] [place] [address], [place] [address] 09/29/2023 15:16:29 09/29/2023 16:17:23 Human immunodeficiency virus infection 49382203 B20 HIV.Contin ue Biktarvy 1 tab po [...] addressed [id number] Joseph Robles MD Main Office [address] [place] [phone] 12/29/2023 13:36:03 12/29/2023 15:28:05 Human immunodeficiency virus infection 11809114 B20 HIV.Contin ue Biktarvy 1 tab po qd.labspt aware of PreP availabili ty. U=U. condom use to prevent STI's.Plan of care reviewed. Questions and concerns addressed Adult heal th examination 749438922 Z00.00 requests the test. Risk of ex posure to communicable disease 024416751 Z20.2 DoxyPeP.pt interested in Doxycyclin e for prevention of bacterial STI's.Inst ructions on correct use reviewed. no more than 2 doses per day.condom use reviewed.p t aware of PreP availabili ty3 site testing GC/chla,yd ia done. [id number] Joseph Robles MD Main Office [address] [place] [address], [place] [phone] 03/28/2024 12:55:25 03/28/2024 13:43:36 Human immunodeficiency virus infection 36907059 B20 HIV.Contin ue Biktarvy 1 tab po qd.labspt aware of PreP availabili ty. U=U. condom use to prevent STI's.Plan of care reviewed. Questions and concerns addressed Risk of ex posure to communicable disease 083088847 Z20.2 DoxyPeP.pt interested in Doxycyclin e for prevention of bacterial STI's.Inst ructions on correct use reviewed. no more than 2 doses per day.condom use reviewed.p t aware of PreP availabili ty3 site testing GC/chla,yd ia done. Folliculitis 02954967 L7 3.9 bacterial and viral cultures obtained. scrotummup irocin cream bid x 7 days; Pt has prescripti on at homeawait culture resultsto call if worsening [place]x. [id number] Joseph Robles MD Main Office [address] [place] [phone] 04/15/2024 14:38:57 04/15/2024 15:01:31 Human immunodeficiency virus infection 84809400 B20 HIV.Contin ue Biktarvy 1 tab po qd.labspt aware of PreP availabili ty. U=U. condom use to prevent STI's.Plan of care reviewed. Questions and concerns addressed Risk of ex posure to communicable disease 230148175 Z20.2 DoxyPeP.pt interested in Doxycyclin e for prevention of bacterial STI's.Inst ructions on correct use reviewed. no more than 2 doses per day.condom use reviewed.p t aware of PreP availabili ty3 site testing GC/valeri,yd ia done. Folliculitis [id number] L7 3.9 Klebsiella s/p Bactrim ds 1 bid x 10 days.ingui nal rash itchi; probably fungal.mark terial and viral cultures obtained. scrotummup irocin cream bid x 7 daysnystat in/triamci nolone bidto call if not imrpoved [id number] Joseph Robles MD Main Office [address] [place] [phone] 05/06/2024 15:26:22 05/06/2024 15:48:46 Human immunodeficiency virus infection [id number] B20 HIV.Contin ue Biktarvy 1 tab po qd.pt aware of PreP availabili ty. U=U. condom use to prevent STI's.Plan of care reviewed. Questions and concerns addressed Risk of ex posure to communicable disease 686591972 Z20.2 DoxyPeP.on Doxycyclin e PRN for prevention of bacterial STI's.Inst ructions on correct use reviewed. no more than 2 doses per day.condom use reviewed. Pruritic rash 13010503 L 28.2 pt has appointmen mt with Dermatolog y on Jun: Dr Tariq.has tried bactrim for klebsiella , DOxycyclin e, mupirocin, antifungal cream and powder, and steroid cream with minimal results.F/ U culture swab negative for bacteria/f ungal/oral antifungal qd. he feels powder helped the best but no reoslution , so will try oral.hydro xyzine qd. watch for sedation. [id number] Joseph Robles MD Main Office [address] [place] [address] 07/19/2024 14:35:56 07/19/2024 15:16:54 Human immunodeficiency virus infection [id number] B20 HIV.Contin ue Biktarvy 1 tab po qd.pt aware of PreP availabili ty. U=U. condom use to prevent STI's.Plan of care reviewed. Questions and concerns addressed Risk of ex posure to communicable disease 573814713 Z20.2 DoxyPeP.on Doxycyclin e PRN for prevention of bacterial STI's.Inst ructions on correct use reviewed. no more than 2 doses per day.condom use reviewed. Fibromyalgia 417033099 M 79.7 neuropathy will go to pelvic pain clinic in [facility] [id number] Joseph Robles MD Main Office [address] [place] [address] 10/18/2024 13:56:36 10/18/2024 14:21:51 Human immunodeficiency virus infection 21795516 B20 HIV.Contin ue Biktarvy 1 tab po qd.clinica l trial options reviewedpt aware of 2 drug regimensva ccines reviewedde clines 3 site testing todaypt aware of PreP availabili ty. U=U. condom use to prevent STI's.Plan of care reviewed. Questions and concerns addressed Risk of ex posure to communicable disease 851339671 Z20.2 DoxyPeP.on Doxycyclin e PRN for prevention of bacterial STI's.Inst ructions on correct use reviewed. no more than 2 doses per day.condom use reviewed. Intertrigo 18624945 L30. 4 culture obtained: scrotal area.hydra tion/skin moisturize r Conjunctivitis 2766506 H 10.9 culture obtained.t o tx if positive infection [id number] Joseph Robles MD Main Office [address] [place] [phone] 12/11/2024 10:39:36 12/11/2024 13:13:17 Dysuria 41697311 R30.0 u/a and u/cSTI Panel.will tx based on results.to ER If worsening; to call if worsening. Human immunodeficiency virus infection 43656140 B20 HIV.Contin ue Biktarvy 1 tab po qd.clinica l trial options reviewedpt aware of 2 drug regimensva ccines reviewedde clines 3 site testing todaypt aware of PreP availabili ty. U=U. condom use to prevent STI's.Plan of care reviewed. Questions and concerns addressed Risk of ex posure to communicable disease 204145937 Z20.2 DoxyPeP.on Doxycyclin e PRN for prevention of bacterial STI's.Inst ructions on correct use reviewed. no more than 2 doses per day.condom use reviewed. Onychomyco sis of toenails 139590649 B35.1 Augmentin x 14 days.no allergiesc orrect use reviewedpo tetnial side effects [id number] Joseph Robles MD Main Office [address] [place] [phone] 06/13/2025 14:47:04 06/13/2025 15:44:08 Human immunodeficiency virus infection 76869674 B20 HIV.Contin ue Biktarvy 1 tab po qd.labspt aware of PreP availabili ty. U=U. condom use to prevent STI's.Plan of care reviewed. Questions and concerns addressed Risk of ex posure to communicable disease 830358043 Z20.2 DoxyPeP.on Doxycyclin e PRN for prevention of bacterial STI's.Inst ructions on correct use reviewed. no more than 2 doses per day.condom use reviewed. Upper resp iratory infection 46580920 J06.9 [id number] sx improvedvi ral panel sample obtainedca ll [...] Shelton Member ID Guarantor Name 06/13/2025 1 [place]: [facility] ([facility] [id number] Mic Inman [id number] Casper Kelley Viralberkleyjonna 06/13/2025 2 [place] [facility] Casper Inman [id number] Casper Inman Notes Date Note Type Note [...] wnl; HCV ab neg; GC/chlamydia03/2023 HIV VLnondetected; UM7=319; no syphilis; HBV neg; HCV neg; eGFR>90;AST [...] come in due transportation. Joseph Robles MD [address] [place] [address], [phone], CHARLES ROBLES MD [facility] 05/06/2024 17:07:34 4 text/html ROS as noted in the HPI HIVon Biktravy 1 tab po qd.taking dailycompliantdenies missing doses.sexually active. no STI sx;labs reviewed.no new meds03/13/2024 HIV VL nondetected; CD4 990-1000; ALT/AST wnl; eGFR>100; neg quantiferon; no syphilisgenital scrotal culture negative; no HCV; no HBV09/2023 HIV VL nondetected; AST/ALT wnl; HCV ab neg; GC/chlamydia03/2023 HIV VLnondetected; DY7=903; no syphilis; HBV neg; HCV neg; eGFR>90;AST 46; ALT 11906/2022 HIV VL Nondetected; CD4= 1112; no syphilis; HBV and HCV neg; neg GC/chlamydia; no DM. TSHno worsening. no new sx. no genital discharge.GC/chlamydia neg pregabalin. neuropathyMRI lumbar spine next week.has seen PMR and PCP. PMR did not offer pain management solutions.will be evaluated at pelvic clinic in [place] for chronic Pelvic pain.dupixent injection by dermatology: biopsy eczema Joseph Robles MD [address] [place] [address], [phone], CHARLES ROBLES MD [facility] 07/21/2024 20:10:20 4 text/html ROS as noted [...] Pelvic Clinic. Deshawn Andrews see Neurologist in [place] as well.ketamine clinic.will be seen by pain psychologist Joseph Robles MD [address] [place] [address], [phone], CHARLES ROBLES MD [facility] 10/18/2024 21:45:04 5 text/html ROS as noted [...] Pelvic Clinic. Deshawn Andrews see Neurologist in [place] as well.seen or will be seen at [...] cutting. swollen and red Joseph Robles MD [address] [place] [address], [phone], CHARLES ROBLES MD [facility] 12/21/2024 18:33:32 5 text/html ROS as noted in the HPI HIVon Biktravy 1 tab po qd.taking dailycomplianttolerates tx welldenies missing doses.labs reviewed.no new medsdupixent injection by dermatology for eczema (on biopsy) per his report.pelvic pain specialist seen at the Pelvic Clinic. Deshawn Neuropathy feels good.no rash. no discharge. no STI sx. has DOXYPEP prescription [facility] has used as neededsexually active; willing to get GC/chlamydia swabswants to get tested for COVID19; was sick about 2 weeks ago; sx imporved, but still feels tired. currently no cough, no fever, no SOB. nail infection resolved. 11/2024 and 12/2024 HCV neg; AST/ALt wnl; LB2=996; HIV Vl nondetceted; HBV s ag neg; urine culture neg ; wound culture neg; eGFR>6008/2024 HIV VL nondetected; CD 4 1206 AST/ALT wnl; RPR 1:1 treponemal abd NR; HCV neg; e GFR 104;03/13/2024 HIV VL nondetected; CD4 990-1000; ALT/AST wnl; eGFR>100; neg quantiferon; no syphilis Joseph Robles MD [address] [place] [address], [phone], CHARLES - JOSEPH ROBLES MD [facility] 06/16/2025 17:24:26
--- OUTSIDE RECORDS SUMMARY | 2025-09-16 12:14 | XMS_ITS | Encounter Summary ---
Author Organization [facility] Address [address] [place] [address] Care Team Providers Care Log Haul Chain Feeder Name Role Phone Dominik Moses MD Primary Care Provider Encounter Details Date Type Department Care Team (Late st Contact Info) Description 10/18/[address] [facility] - Main Lab [address] [place] [address] Gissel Vasquez MD [address] [place] [id number] Unspecified conjunctivitis Social History Tobacco Use Types [...] No pathogens isolated. 10/21/2024 10:51 AM EST [facility] Gram Stain Result No polymorphonuclear leukocytes, No epithelial cells, and No organisms noted 10/21/2024 10:51 AM EST [facility] Swab 10/18/2024 10/18/2024 8:0 7 PM EST us Gissel Vasquez MD LAB MICROBIOLOGY - GENERA L ORDERABLES Final Result [facility] [address] [place] [address], documented in this encounter Visit Diagnoses Diagnosis Unspecified conjunctivitis documented in this encounter Additional Health Concerns Infection Onset Date Last Indicated Resolved Time Respiratory Rule-Out 06/13/2025 06/13/2025 025 2:20 PM EDT documented as of this encounter Care Teams Log Haul Chain Feeder Relationship Specialty Start Date End Date Dominik Moses MD [address] [facility] [address] [place], [place] PCP - General Pediatrics 08/27/21 documented as of this encounter
--- OUTSIDE RECORDS SUMMARY | 2025-09-16 12:14 | XMS_ITS | Encounter Summary ---
Author Organization [facility] Address [address] [place] [address] Care Team Providers Care Web Development Manager Name Role Phone Dominik Moses MD Primary Care Provider [phone] Encounter Details Date Type Department Care Team (Late st Contact Info) Description 10/18/2024 Lab Requisition [facility] - Main Lab [address] [place] [address] Gissel Vasquez MD [address] [place] [address] Erythema intertrigo Social History Tobacco Use Types [...] significant pathogens noted. 10/21/2024 10:53 AM EST [facility] Swab Urethral structure / Unknown 10/18/2024 10/18/2024 8:11 PM EST us Gissel Vasquez MD LAB MICROBIOLOGY - GENERA L ORDERABLES Final Result [facility] [address] [place] [address], documented in this encounter Visit Diagnoses Diagnosis Erythema intertrigo Other specified erythematous condition documented in this encounter Additional Health Concerns Infection Onset Date Last Indicated Resolved Time Respiratory Rule-Out 06/13/2025 06/13/2025 025 2:20 PM EDT documented as of this encounter Care Teams Web Development Manager Relationship Specialty Start Date End Date Dominik Moses MD [address] [facility] [address] [place], [place] PCP - General Pediatrics 08/27/21 documented as of this encounter
--- OUTSIDE RECORDS SUMMARY | 2025-09-16 12:14 | XMS_ITS | Clinical Summary ---
Author Organization [facility] Address [address] [place] [address] Phone Care Team Providers Care Tire Mold Tester Name Role Phone Jose Guadalupe Vargas MD Primary Care Provider [phone] Jose Guadalupe Vargas MD Unavailable [phone] Social History Tobacco Use Types Packs/Day Years Used Date Smoking Tobacco: Never Assessed Sex and Gender Information Value Date Recorded Sex Assigned at Not on file Legal Sex Male 7:37 PM EDT Gender Identity Not on file Sexual Orientation Not on file Plan of Treatment Not on file Care Teams Tire Mold Tester Relationship Specialty Start Date End Date Jose Guadalupe Vargas MD [address] [place] [address] PCP - General 10/01/08 Jose Guadalupe Vargas MD [address] [place] [address] PCP - Insurance PCP 10/01/08
--- OUTSIDE RECORDS SUMMARY | 2025-09-16 12:14 | XMS_ITS | Clinical Summary ---
Author Organization [facility] Address [address] [place] [address] Phone Care Team Providers Care Intel Recruiter Name Role Phone Dominik Moses MD Primary Care Provider [phone] Medical History Medical History Date Comments Myopia [...] patient's age to complete this topic Insurance [facility] MEDICAID - [place] Care Teams Intel Recruiter Relationship Specialty Start Date End Date Dominik Moses MD [address] [facility] [address] [place], [place] PCP - General Pediatrics 08/27/21
--- OUTSIDE RECORDS SUMMARY | 2025-09-16 12:14 | XMS_ITS | Encounter Summary ---
Author Organization [facility] Address [address] [place] [address] Care Team Providers Care Inspector Fabric Name Role Phone Dominik Moses MD Primary Care Provider Encounter Details Date Type Department Care Team (Latest Contact Info) Description 12/11/2024 Lab Requisition [facility] - Main Lab [address] [place] [address] Gissel Vasquez MD [address] [place] [address] Contact with and (suspected) exposure to infections [...] of transmission Human immunodeficiency virus (HIV) disease ([facility]) URINALYSIS WITH REFLEX MICROSCOPIC Routine 12/11/2024 12:00 AM EST Contact with and (suspected) exposure to infections with a predominantly sexual mode of transmission Human immunodeficiency virus (HIV) disease ([facility]) CHLAMYDIA TRACHOMATIS AND NEISSERIA GONORRHOEAE PCR Routine 12/11/2024 12:00 AM EST Contact with and (suspected) exposure to infections with a predominantly sexual mode of transmission Human immunodeficiency virus (HIV) disease ([facility]) CHLAMYDIA TRACHOMATIS AND NEISSERIA GONORRHOEAE PCR Routine 12/11/2024 12:00 AM EST Contact with and (suspected) exposure to infections with a predominantly sexual mode of transmission Human immunodeficiency virus (HIV) disease ([facility]) CHLAMYDIA TRACHOMATIS AND NEISSERIA GONORRHOEAE PCR Routine 12/11/2024 12:00 AM EST Contact with and (suspected) exposure to infections with a predominantly sexual mode of transmission Human immunodeficiency virus (HIV) disease ([facility]) CULTURE WOUND DEEP Routine 12/11/2024 12 :00 AM EST Contact with and (suspected) exposure to infections with a predominantly sexual mode of transmission Human immunodeficiency virus (HIV) disease ([facility]) documented in this encounter Results * (ABNORMAL) Urinalysis with reflex microscopic (12/11/2024 12:00 AM EST) Specific [place] Urine 1.026 1.003 - 1.030 LAB URINALYSIS - AUTOMATED METHOD 12/11/2024 7:38 PM [facility] pH, Urine 5.5 5.0 - 8.0 pH LAB URINALYSIS - AUTOMATED METHOD 12/11/2024 7:38 PM [facility] Leukocytes, Urine Trace(A) Negative LAB URINALYSIS - AUTOMATED METHOD 12/11/2024 7:38 PM [facility] Nitrite, Urine Negative Negative LAB URINALYSIS - AUTOMATED METHOD 12/11/2024 7:38 PM [facility] Protein, Urine Trace <=Trace mg/dL LAB URINALYSIS - AUTOMATED METHOD 12/11/2024 7:38 PM [facility] Glucose, Urine Negative Negative mg/dL LAB URINALYSIS - AUTOMATED METHOD 12/11/2024 7:38 PM [facility] Ketones, Urine 15(A) Negative mg/dL LAB URINALYSIS - AUTOMATED METHOD 12/11/2024 7:38 PM [facility] Urobilinogen, Urine 1.0 0.2 - 1.0 mg/dL LAB URINALYSIS - AUTOMATED METHOD 12/11/2024 7:38 PM [facility] Bilirubin, Urine Negative Negative LAB URINALYSIS - AUTOMATED METHOD 12/11/2024 7:38 PM [facility] Blood, Urine Negative Negative LAB URINALYSIS - AUTOMATED METHOD 12/11/2024 7:38 PM [facility] RBC, Urine 4.7(H) 0 - 4 /HPF LAB URINALYSIS - AUTOMATED METHOD 12/11/2024 7:38 PM [facility] WBC, Urine 0.0 0 - 4 /HPF LAB URINALYSIS - AUTOMATED METHOD 12/11/2024 7:38 PM [facility] Squamous Epithelial, Urine 3 0 - 60 /LPF LAB URINALYSIS - AUTOMATED METHOD 12/11/2024 7:38 PM [facility] Bacteria, Urine Negative Negative /HPF LAB URINALYSIS - AUTOMATED METHOD 12/11/2024 7:38 PM [facility] Hyaline Casts, Urine 0.0 0 - 3 /LPF LAB URINALYSIS - AUTOMATED METHOD 12/11/2024 7:38 PM [facility] Urine Urine specimen obtained by clean catch procedure / Unknown 12/11/2024 12/11/2024 7:25 PM EST us Gissel Vasquez MD LAB URINE ORDERABLES Mohini caraballo Result [facility] [address] [place] [address], [place] [phone] * Chlamydia trachomatis and Neisseria gonorrhoeae molecular [...] Edited Result - Final Performing Organization Address [facility]/ZIP Co de Phone Number [facility] [address] [place] [address], * Chlamydia trachomatis and Neisseria gonorrhoeae molecular study (12/11/2024 12:00 AM EST) [facility] Neisseria gonorrhoeae PCR Negative Negative LAB [...] Edited Result - Final Performing Organization Address [facility]/ZIP Co de Phone Number [facility] [address] [place] [address], * Chlamydia trachomatis and Neisseria gonorrhoeae molecular [...] Final Result [facility] [address] [place] [address], * (ABNORMAL) Culture wound deep (12/11/2024 12:00 AM EST) Culture, Wound Few Staphylococcus epidermidis(A) MARYAN 12/15/2024 12:33 PM [facility] Comment: The organism [...] and No organisms noted 12/15/2024 12:33 PM [facility] Swab Structure of left [...] MICROBIOLOGY - GENERA L ORDERABLES Final Result [facility] [address] [place] [address], documented in this encounter Visit Diagnoses Diagnosis Contact with and (suspected) exposure to infections with a predominantly sexual mode of transmission Human immunodeficiency virus (HIV) disease ([facility] V24, [facility] V28) Human immunodeficiency virus [HIV] disease documented in this encounter Additional Health Concerns Infection Onset Date Last Indicated Resolved Time Respiratory Rule-Out 06/13/2025 06/13/2025 025 2:20 PM EDT documented as of this encounter Care Teams Inspector Fabric Relationship Specialty Start Date End Date Dominik Moses MD [address] [facility] [address] [place], [place] PCP - General Pediatrics 08/27/21 documented as of this encounter
--- OUTSIDE RECORDS SUMMARY | 2025-09-16 12:14 | XMS_ITS | Encounter Summary ---
Author Organization [facility] Address [address] [place] [address] Phone Care Team Providers Care Snailer Name Role Phone Blanco Webster MD Primary Care Provider [phone] Encounter Details Date Type Department Care Team (Late st Contact Info) Description 04/18/2013 Documentation [facility] Family Medicine [address] [place], [place] [id number] Family Medicine, Physician [address] [place] [address] Social History Tobacco Use Types Packs/Day Years [...] on filedocumented in this encounter Care Teams Snailer Relationship Specialty Start Date End Date Blanco Webster MD [address] [place] [address] [place] [address] PCP - General 03/21/18 documented as of this encounter
--- OUTSIDE RECORDS SUMMARY | 2025-09-16 12:14 | XMS_ITS | Encounter Summary ---
Author Organization [facility] Address [address] [place] [address] Care Team Providers Care Communications And Signals Supervisor Name Role Phone Dominik Moses MD Primary Care Provider Encounter Details Date Type Department Care Team (Late st Contact Info) Description 06/13/2025 Lab Requisition [facility] - Main Lab [address] [place] [address] Gissel Vasquez MD [address] [place] [address] Encounter for gynecological examination (general) (routine) without [...] Procedure Name Priority Date/Time Associated Diagnosis Comments [id number], RSV, FLU A AND B QUALITATIVE RT-PCR, [...] diseases documented in this encounter Results * [id number], RSV, Influenza A and B qualitative RT-PCR (06/13/2025 3:35 PM EDT) [facility] SARS COV-2 Not Detected Not Detected LAB MOLECULAR DIAGNOSTICS METHOD 06/14/2025 2:20 PM EDT [facility] Comment: Disclaimer: The manner in which this information is used to guide patient care is the responsibility of the healthcare provider. Testing was performed using the [employer] Al[employer] m SARS-CoV-2 test. This test has [...] for Healthcare Providers can be found at: https://www.fda.gov/media/383593/download Fact sheet for Patients can be found at: https://www.fda.gov/media/612562/download Influenza A PCR Not Detected Not Detected LAB MOLECULAR DIAGNOSTICS METHOD 06/14/2025 2:20 PM EDT [facility] Influenza B PCR Not Detected Not Detected LAB MOLECULAR DIAGNOSTICS METHOD 06/14/2025 2:20 PM EDT [facility] RSV PCR Not Detected Not Detected LAB MOLECULAR DIAGNOSTICS METHOD 06/14/2025 2:20 PM EDT [facility] Swab Nasopharyngeal structure / Unknown 06/13/2025 3:35 PM EDT 06/13/2025 6:58 PM EDT us Gissel Vasquez MD LAB MICROBIOLOGY - GENERA L ORDERABLES Final Result Performing Organization Address City/[facility]/ZIP Co de Phone Number [facility] [address] [place] [address], [place] [phone] * Chlamydia trachomatis and Neisseria gonorrhoeae molecular study (06/13/2025 3:35 PM EDT) Neisseria gonorrhoeae PCR Negative Negative LAB MOLECULAR DIAGNOSTICS METHOD 06/14/2025 3:09 PM EDT [facility] Chlamydia trachomatis PCR Negative Negative LAB MOLECULAR DIAGNOSTICS METHOD 06/14/2025 3:09 PM EDT [facility] Urine Urine specimen from urethra / Unknown 06/13/2025 3:35 PM EDT 06/13/2025 6:58 PM EDT us Gissel Vasquez MD LAB MICROBIOLOGY - GENERA L ORDERABLES Final Result Performing Organization Address City/[facility]/ZIP Co de Phone Number [facility] [address] [place] [address], [place] [phone] * Chlamydia trachomatis and Neisseria gonorrhoeae molecular study (06/13/2025 3:35 PM EDT) Neisseria gonorrhoeae PCR Negative Negative LAB MOLECULAR DIAGNOSTICS METHOD 06/14/2025 10:59 AM EDT [facility] Chlamydia trachomatis PCR Negative Negative LAB MOLECULAR DIAGNOSTICS METHOD 06/14/2025 10:59 AM EDT [facility] Swab Topography unknown / Unknown 06/13/2025 3:35 PM EDT 06/13/2025 6:58 PM EDT Gissel Vasquez MD LAB MICROBIOLOGY - GENERA L ORDERABLES Final Result Performing Organization Address City/[facility]/ZIP Co de Phone Number [facility] [address] [place] [address], [place] [phone] * Chlamydia trachomatis and Neisseria gonorrhoeae molecular study (06/13/2025 3:35 PM EDT) Neisseria gonorrhoeae PCR Negative Negative LAB MOLECULAR DIAGNOSTICS METHOD 06/14/2025 10:59 AM EDT [facility] Chlamydia trachomatis PCR Negative Negative LAB MOLECULAR DIAGNOSTICS METHOD 06/14/2025 10:59 AM EDT [facility] Swab Rectum structure / Unknown 06/13/2025 3:35 PM EDT 06/13/2025 6:58 PM EDT Gissel Vasquez MD LAB MICROBIOLOGY - GENERA L ORDERABLES Final Result Performing Organization Address [facility] Co de Phone Number [facility] [address] [place] [address], [place] [phone] documented in this encounter Visit Diagnoses Diagnosis Encounter for gynecological examination (general) (routine) without abnormal findings Contact with and (suspected) exposure to other viral communicable diseases documented in this encounter Additional Health Concerns Infection Onset Date Last Indicated Resolved Time Respiratory Rule-Out 06/13/2025 06/13/2025 025 2:20 PM EDT documented as of this encounter Care Teams Communications And Signals Supervisor Relationship Specialty Start Date End Date Dominik Moses MD [address] [facility] [address] [place], [place] PCP - General Pediatrics 08/27/21 documented as of this encounter
== END 2025-09-16 11:15 | disposition home or self-care (01) ==
LOC: HO.HOP 10:26
PROVIDERS: Visit Provider Counselor Mental Health
DX: F41.1 Generalized anxiety disorder (principal); F33.1 Major depressive disorder, recurrent, moderate; F43.9 Reaction to severe stress, unspecified
CPT/HCPCS: 90834

== ENCOUNTER 2025-09-23 10:21 | Outpatient (AMB) | payer BC, MEDICAID, SELFPAY ==
--- OUTSIDE RECORDS SUMMARY | 2025-09-23 03:56 | XMS_ITS ---
[...] Hyperlipidemia Inactive Neuropathy Active Atopic dermatitis Active Nausea Active - SE from ket[facility] ne infusions pt receives for pain and mental health History of Procedures Order Codes Created Status [...] and/or family 10 minutes or less CHARLI Lujan-CInternal Medicine Note signed at: 2025-08-31 23:03:17 -0700 HIV infection Active Family History Heart disease Social History Social History Observation Description Dates Observed Smoking Status Unknown if ever smoked Social Data No Known Social Data Immunizations Vaccine Date Status Unknown immunization status 09/23/2025 Comp leted Plan of Treatment Health Screenings Date Goal Action Comments August 21, 2025 Depression screening PHQ-2 Insurance Providers Payer name Policy type / Coverage type Policy ID Covered democrat ID Policy [facility] ([facility]) [facility] [id number] Self Notes * Video Encounter - 08/31/2025 SUBJECTIVE: Rema Cortez PA-C Supervising Physicians: Oscar Cardenas DO Patient Location: [place] Current time: 1:53 AM EDT Pt confirmed [...]
--- NOTE | 2025-09-23 10:15 | A.OFFWM_ITS ---
Intake Intake Visit Reasons: VIDEO OP Therapy Allergies ciclopirox Allergy (Intermediate, Verified 10/27/24 10:56) Rash gluten Adverse Reaction (Mild, Verified 10/27/24 16:52) Itching lactose Adverse Reaction (Mild, Verified 10/27/24 16:52) Itching PFSH Medical History Chronic pelvic pain in male Cyst of epididymis Testicular pain, left Scrotal pain Trauma and stressor-related disorder Major depressive disorder, recurrent episode Generalized anxiety disorder HIV (human immunodeficiency virus infection) Social History Comment: Alcohol occasional Substance Use Type: Marijuana Sexual orientation: Lesbian/Saenz/Homosexual Gender identity: Male Behavioral Health Assessment Weight Management Therapy Therapy Notes Details Subjective: The patient reports that things are not going well overall, but he is managing his pain better today. He describes feeling unmotivated, with a depressed mood and little interest in activities, noting that his pain is variable and contributes to his low motivation. He also reports intermittent anxiety and difficulty seeing the light at the end of the tunnel. He shared that he recently baked again, which brought him some happiness. When other activities sofia ch as daily or short walks and gentle exercise were discussed, he reported not being able to engage in these. The patient was prescribed venlafaxine (Effexor) 150 mg daily on 09/10 by mental health prescriber but has not yet started the medication. Objective: The patient presented for a follow-up appointment via telehealth. Talk therapy was provided, focusing on current functioning and mood. CBT-based interventions were used to address depressive and anxious symptoms, including cognitive restructuring to challenge hopeless thoughts and identify small, achievable goals. Behavioral activation was emphasized, with encouragement to re-engage in pleasurable activities, as demonstrated by his positive experience with baking. Problem-solving strategies were discussed to address barriers to activity, such as pacing and modifying expectations for physical activity. Psychoeducation was provided regarding the relationship between chronic pain, mood, and motivation. The patient was also supported in developing an action plan for starting his new medication and monitoring for side effects. Relaxation and grounding techniques were reviewed to help manage anxiety. Assessment/Response: * Mental status: The patient appeared tired and subdued but was alert and oriented. Affect was congruent with reported mood. Thought processes were logical and coherent. No evidence of psychosis or cognitive impairment. * Risk reported/identified: The patient denied suicidal or homicidal ideation, intent, or plan. No acute safety concerns identified. Assessment & Plan Assessment & Plan (1) Generalized anxiety disorder: Code(s): F41.1 - Generalized anxiety disorder (2) Major depressive disorder, recurrent episode: Code(s): F33.9 - Major depressive disorder, recurrent, unspecified Qualifiers: Major depression episode severity: moderate Qualified Code(s): F33.1 - Major depressive disorder, recurrent, moderate (3) Trauma and stressor-related disorder: Code(s): F43.9 - Reaction to severe stress, unspecified Plan Continue with weekly sessions to monitor mood, pain, and adjustment to medication. Reinforce CBT, behavioral activation, and problem-solving strategies. Encourage the patient to start venlafaxine as prescribed and monitor for side effects. Support re-engagement in pleasurable activities and gradual increase in activity level as tolerated. * Next appointment: 09/30/2025 at 10am, video. Telehealth Telehealth Telehealth Platform: [employer] Location of provider rendering services: practice address Location of patient: address on file Patient Identification confirmed using: Name, : Yes Telehealth method: video Patient verbally consented to treatment: Yes Patient verbally consented to billing insurance company: Yes Patient informed of any privacy concerns related to visit: Yes Minutes spent on Phone/Video with Pt.: 50 C[place] [id number] Tele Psytx 45 mins Patient Type Established Diagnoses Generalized anxiety disorder F41.1 Moderate episode of recurrent major depressive disorder F33.1 Major depression episode severity: moderate Trauma and stressor-related disorder F43.9 Time Spent (min) 50
--- OUTSIDE RECORDS SUMMARY | 2025-09-23 11:57 | XMS_ITS | Data Portability ---
Author Organization [place] - [facility], Allergy Address [address] [facility] [address] [place] [address] Care Team Providers Care Electronic Gluing Machine Operator Name Role Phone ISABEL TRAN Primary Care Provider ISABEL TRAN Referring Provider [phone] JANES TRAN Primary Care Provider Assessment No [...] Address Organization Details Recorded Time Bilateral tinnitus 85231639553 02 Active 2022 Tinnitus, bilateral ; Note: Date Diagnosed : 04/25/2023 2:02 PM (H93.13) Not Available [facility] 4 03:17:50 Jaw pain 322555688 Active 2022 Jaw pain; Note: Date Diagnosed : 04/25/2023 2:07 PM (R68.84) Not Available [facility] 4 03:17:49 Hypertrop hy of tonsils 01318359 Active 2023 Hypertrop hy of tonsils; Note: Date Diagnosed : 12/11/2023 1:00 PM (J35.1) Not Available [facility] 4 03:17:50 Bleeding from nose 797438972 Active 2023 Epistaxis ; Note: Date Diagnosed : 12/21/2023 1:51 PM (R04.0) Not Available [facility] 4 03:17:49 Chronic disease of tonsils AND/OR adenoids 30953985 Active 2023 Calculus, tonsil; Note: Date Diagnosed : 12/21/2023 1:50 PM (J35.8) Not Available [facility] 4 03:17:50 Hemoptysi s 18550234 Active 2023 Hemoptysi s; Note: Date Diagnosed : 12/22/2023 3:29 PM (R04.2) Not Available [facility] 4 03:17:50 Chronic tonsillit is 51535151 Active 2023 MARCOS SABA MD [address] [place] [address], [place], [address] , [facility] - [facility] 4 11:34:25 Problem Notes None recorded. [...] capsule,d elayed release active Medicati on ID: [id number] B rand Name: duloxeti ne Send Method: [...] Updated DateTime 05/17/2024 177.8 cm 25.8 kg/m2 38052.63 g Kasey Farrell [place] - [facility] 05/17/2024 13:41:31 Social History None recorded. Functional Status None recorded. Mental Status None recorded. Family History Nothing Reported. Medical History Condition Response Migraines Y Immune System Disorder Y Past Encounters Encounter ID Performer Location Encounter Start Date Encounter Closed Date Diagnosis/Indication Diagnosis SNOMED-CT Code Diagnosis ICD10 Code Diagnosis IMO Codes Diagnosis Note [id number] MARCOS SABA MD [facility] [address] [phone] 05/17/2024 13:34:24 05/20/2024 17:12:20 Chronic tonsillitis 70037355 J35.01 23-year-ol d male presents today for [...] ID Guarantor Name 05/24/2024 1 [place] [facility] (O) [id number] Casper Inman [id number] Casper Inman 05/14/2024 2 [place] Casper Inman [id number] Casper Inman Notes Date Note Type Note [...] bleeding in several weeks. MARCOS SABA MD [address] [place] [address], [phone], [facility] - [facility] 05/18/2024 11:39:09
--- OUTSIDE RECORDS SUMMARY | 2025-09-23 11:57 | XMS_ITS | Encounter Summary ---
Author Organization [facility] Address [address] [place] [address] Care Team Providers Care Blood Bank Technician Name Role Phone Dominik Moses MD Primary Care Provider Encounter Details Date Type Department Care Team (Latest Contact Info) Description 12/11/2024 Lab Requisition [facility] - Main Lab [address] [place] [address] Gissel Vasquez MD [address] [place] [address] Contact with and (suspected) exposure to infections [...] of transmission Human immunodeficiency virus (HIV) disease ([facility]) URINALYSIS WITH REFLEX MICROSCOPIC Routine 12/11/2024 12:00 AM EST Contact with and (suspected) exposure to infections with a predominantly sexual mode of transmission Human immunodeficiency virus (HIV) disease ([facility]) CHLAMYDIA TRACHOMATIS AND NEISSERIA GONORRHOEAE PCR Routine 12/11/2024 12:00 AM EST Contact with and (suspected) exposure to infections with a predominantly sexual mode of transmission Human immunodeficiency virus (HIV) disease ([facility]/HCC) CHLAMYDIA TRACHOMATIS AND NEISSERIA GONORRHOEAE PCR Routine 12/11/2024 12:00 AM EST Contact with and (suspected) exposure to infections with a predominantly sexual mode of transmission Human immunodeficiency virus (HIV) disease ([facility]/HCC) CHLAMYDIA TRACHOMATIS AND NEISSERIA GONORRHOEAE PCR Routine 12/11/2024 12:00 AM EST Contact with and (suspected) exposure to infections with a predominantly sexual mode of transmission Human immunodeficiency virus (HIV) disease ([facility]/HCC) CULTURE WOUND DEEP Routine 12/11/2024 12 :00 AM EST Contact with and (suspected) exposure to infections with a predominantly sexual mode of transmission Human immunodeficiency virus (HIV) disease ([facility]) documented in this encounter Results * (ABNORMAL) Urinalysis with reflex microscopic (12/11/2024 12:00 AM EST) Specific [place] Urine 1.026 1.003 - 1.030 LAB URINALYSIS [...] caraballo Result [facility] [address] [place] [address], [place] [phone] * Chlamydia trachomatis and Neisseria gonorrhoeae molecular study (12/11/2024 12:00 AM EST) Neisseria gonorrhoeae PCR Negative Negative LAB MOLECULAR DIAGNOSTICS METHOD 05/26/2025 1:56 PM EDT [facility] Comment: This specimen type has not been evaluated for this method. Interpret results with caution. RECTUM Chlamydia trachomatis PCR Negative Negative LAB MOLECULAR DIAGNOSTICS METHOD 05/26/2025 1:56 PM EDT [facility] Comment: This specimen type has not been evaluated for this method. Interpret results with caution. RECTUM Swab Rectum structure / Unknown 12/11/2024 12/11/2024 7:25 PM EST us Gissel Vasquez MD LAB MICROBIOLOGY - GENERA L ORDERABLES Edited Result - Final Performing Organization Address [facility]/ZIP Co de Phone Number [facility] [address] [place] [address], * Chlamydia trachomatis and Neisseria gonorrhoeae molecular study (12/11/2024 12:00 AM EST) [facility] Neisseria gonorrhoeae PCR Negative Negative LAB MOLECULAR DIAGNOSTICS METHOD 05/27/2025 12:31 PM EDT [facility] Comment: This specimen type has not been evaluated for this method. Interpret results with caution. THROAT Chlamydia trachomatis PCR Negative Negative LAB MOLECULAR DIAGNOSTICS METHOD 05/27/2025 12:31 PM EDT [facility] Comment: This specimen type has not been evaluated for this method. Interpret results with caution. THROAT Swab Structure of anterior region of neck / Unknown 12/11/2024 12/11/2024 7:25 PM EST us Gissel Vasquez MD LAB MICROBIOLOGY - GENERA L ORDERABLES Edited Result - Final Performing Organization Address [facility]/ZIP Co de Phone Number [facility] [address] [place] [address], * Chlamydia trachomatis and Neisseria gonorrhoeae molecular [...] Final Result [facility] [address] [place] [address], * (ABNORMAL) Culture wound deep (12/11/2024 12:00 [...] ORDERABLES Final Result [facility] [address] [place] [address], documented in this encounter Visit Diagnoses Diagnosis Contact with and (suspected) exposure to infections with a predominantly sexual mode of transmission Human immunodeficiency virus (HIV) disease ([facility] V24, [facility] V28) Human immunodeficiency virus [HIV] disease documented in this encounter Additional Health Concerns Infection Onset Date Last Indicated Resolved Time Respiratory Rule-Out 06/13/2025 06/13/2025 025 2:20 PM EDT documented as of this encounter Care Teams Blood Bank Technician Relationship Specialty Start Date End Date Dominik Moses MD [address] [facility] [address] [place], [place] PCP - General Pediatrics 08/27/21 documented as of this encounter
--- OUTSIDE RECORDS SUMMARY | 2025-09-23 11:57 | XMS_ITS | Encounter Summary ---
Author Organization [facility] Address [address] [place] [address] Care Team Providers Care Stave Cutting Supervisor Name Role Phone Dominik Moses MD Primary Care Provider Encounter Details Date Type Department Care Team (Late st Contact Info) Description 10/18/2024 Lab Requisition [facility] - Main Lab [address] [place] [address] Gissel Vasquez MD [address] [place] [address] Unspecified conjunctivitis Social History Tobacco Use Types [...] No pathogens isolated. 10/21/2024 10:51 AM EST [facility] Gram Stain Result No polymorphonuclear leukocytes, No epithelial cells, and No organisms noted 10/21/2024 10:51 AM EST [facility] Swab 10/18/2024 10/18/2024 8:0 7 PM EST us Gissel Vasquez MD LAB MICROBIOLOGY - GENERA L ORDERABLES Final Result [facility] [address] [place] [address], documented in this encounter Visit Diagnoses Diagnosis Unspecified conjunctivitis documented in this encounter Additional Health Concerns Infection Onset Date Last Indicated Resolved Time Respiratory Rule-Out 06/13/2025 06/13/2025 025 2:20 PM EDT documented as of this encounter Care Teams Stave Cutting Supervisor Relationship Specialty Start Date End Date Dominik Moses MD [address] [facility] [address] [place], [place] PCP - General Pediatrics 08/27/21 documented as of this encounter
--- OUTSIDE RECORDS SUMMARY | 2025-09-23 11:57 | XMS_ITS | Encounter Summary ---
Author Organization [facility] Address [address] [place] [address] Phone Care Team Providers Care Sales Marketing Name Role Phone Blanco Webster MD Primary Care Provider [phone] Encounter Details Date Type Department Care Team (Late st Contact Info) Description 04/18/2013 Documentation [facility] Family Medicine [address] [place], [place] [id number] Family Medicine, Physician [address] [place] [address] Social History Tobacco Use Types Packs/Day Years [...] on filedocumented in this encounter Care Teams Sales Marketing Relationship Specialty Start Date End Date Blanco Webster MD [address] [place] [address] [place] [address] PCP - General 03/21/18 documented as of this encounter
--- OUTSIDE RECORDS SUMMARY | 2025-09-23 11:57 | XMS_ITS | Clinical Summary ---
Author Organization [facility] Address [address] [place] [address] Phone Care Team Providers Care Groundskeeper Name Role Phone Jose Guadalupe Vargas MD Primary Care Provider [phone] Jose Guadalupe Vargas MD Unavailable [phone] Social History Tobacco Use Types Packs/Day Years Used Date Smoking Tobacco: Never Assessed Sex and Gender Information Value Date Recorded Sex Assigned at Not on file Legal Sex Male 7:37 PM EDT Gender Identity Not on file Sexual Orientation Not on file Plan of Treatment Not on file Care Teams Groundskeeper Relationship Specialty Start Date End Date Jose Guadalupe Vargas MD [address] [place] [address] PCP - General 10/01/08 Jose Guadalupe Vargas MD [address] [place] [address] PCP - Insurance PCP 10/01/08
--- OUTSIDE RECORDS SUMMARY | 2025-09-23 11:57 | XMS_ITS | Encounter Summary ---
Author Organization [facility] Address [address] [place] [address] Care Team Providers Care Wire Coiler Name Role Phone Dominik Moses MD Primary Care Provider Encounter Details Date Type Department Care Team (Late st Contact Info) Description 06/13/2025 Lab Requisition [facility] - Main Lab [address] [place] [address] Gissel Vasquez MD [address] [place] [address] Encounter for gynecological examination (general) (routine) without [...] Procedure Name Priority Date/Time Associated Diagnosis Comments [id number], RSV, FLU A AND B QUALITATIVE RT-PCR, [...] diseases documented in this encounter Results * [id number], RSV, Influenza A and B qualitative RT-PCR (06/13/2025 3:35 PM EDT) [facility] SARS COV-2 Not Detected Not Detected LAB MOLECULAR DIAGNOSTICS METHOD 06/14/2025 2:20 PM EDT [facility] Comment: Disclaimer: The manner in which this information is used to guide patient care is the responsibility of the healthcare provider. Testing was performed using the Qoture Alinity m SARS-CoV-2 test. This test has [...] for Healthcare Providers can be found at: https://www.fda.gov/media/254372/download Fact sheet for Patients can be found at: https://www.fda.gov/media/422856/download Influenza A PCR Not Detected Not Detected [...] L ORDERABLES Final Result Performing Organization Address City/[facility]/ZIP Co de Phone Number [facility] [address] [place] [address], [place] [phone] * Chlamydia trachomatis and Neisseria gonorrhoeae molecular [...] L ORDERABLES Final Result Performing Organization Address City/[facility]/ZIP Co de Phone Number [facility] [address] [place] [address], [place] [phone] * Chlamydia trachomatis and Neisseria gonorrhoeae molecular study (06/13/2025 3:35 PM EDT) Neisseria gonorrhoeae PCR Negative Negative LAB MOLECULAR DIAGNOSTICS METHOD 06/14/2025 10:59 AM EDT [facility] Chlamydia trachomatis PCR Negative Negative LAB MOLECULAR DIAGNOSTICS METHOD 06/14/2025 10:59 AM EDT [facility] Swab Topography unknown / Unknown 06/13/2025 3:35 PM EDT 06/13/2025 6:58 PM EDT Gissel Vasquez MD LAB MICROBIOLOGY - GENERA L ORDERABLES Final Result Performing Organization Address City/[facility]/ZIP Co de Phone Number [facility] [address] [place] [address], [place] [phone] * Chlamydia trachomatis and Neisseria gonorrhoeae molecular study (06/13/2025 3:35 PM EDT) Neisseria gonorrhoeae PCR Negative Negative LAB MOLECULAR DIAGNOSTICS METHOD 06/14/2025 10:59 AM EDT [facility] Chlamydia trachomatis PCR Negative Negative LAB MOLECULAR DIAGNOSTICS METHOD 06/14/2025 10:59 AM EDT [facility] Swab Rectum structure / Unknown 06/13/2025 3:35 PM EDT 06/13/2025 6:58 PM EDT Gissel Vasquez MD LAB MICROBIOLOGY - GENERA L ORDERABLES Final Result Performing Organization Address [facility] Co de Phone Number [facility] [address] [place] [address], [place] [phone] documented in this encounter Visit Diagnoses Diagnosis Encounter for gynecological examination (general) (routine) without abnormal findings Contact with and (suspected) exposure to other viral communicable diseases documented in this encounter Additional Health Concerns Infection Onset Date Last Indicated Resolved Time Respiratory Rule-Out 06/13/2025 06/13/2025 025 2:20 PM EDT documented as of this encounter Care Teams Wire Coiler Relationship Specialty Start Date End Date Dominik Moses MD [address] [facility] [address] [place], [place] PCP - General Pediatrics 08/27/21 documented as of this encounter
--- OUTSIDE RECORDS SUMMARY | 2025-09-23 11:57 | XMS_ITS | Clinical Summary ---
Author Organization [address] [facility] Address [address] [place] [address] Phone Care Team Providers Care Post Tensioning Ironworker Name Role Phone Dominik Moses MD Primary Care Provider [phone] Medical History Medical History Date Comments Myopia [...] patient's age to complete this topic Insurance [facility] [place]ICAID - [place] Care Teams Post Tensioning Ironworker Relationship Specialty Start Date End Date Dominik Moses MD [address] [facility] [address] [place], [place] PCP - General Pediatrics 08/27/21
--- OUTSIDE RECORDS SUMMARY | 2025-09-23 11:57 | XMS_ITS | Clinical Summary ---
Author Organization [facility] Address [address] [place] [address] Phone Care Team Providers Care Head Animal Trainer Name Role Phone Blanco Webster MD Primary Care Provider [phone] Social History Tobacco Use Types Packs/Day Years [...] age to complete this topic Care Teams Head Animal Trainer Relationship Specialty Start Date End Date Blanco Webster MD [facility] [facility] [place] [address] PCP - General 03/21/18
--- OUTSIDE RECORDS SUMMARY | 2025-09-23 11:57 | XMS_ITS | Encounter Summary ---
Author Organization [facility] Address [address] [place] [address] Care Team Providers Care Chest Painting Leader Name Role Phone Dominik Moses MD Primary Care Provider Encounter Details Date Type Department Care Team (Late st Contact Info) Description 10/18/2024 Lab Requisition [facility] - Main Lab [address] [place] [address] Gissel Vasquez MD [address] [place] [address] Erythema intertrigo Social History Tobacco Use Types [...] significant pathogens noted. 10/21/2024 10:53 AM EST [facility] Swab Urethral structure / Unknown 10/18/2024 10/18/2024 8:11 PM EST us Gissel Vasquez MD LAB MICROBIOLOGY - GENERA L ORDERABLES Final Result [facility] [address] [place] [address], documented in this encounter Visit Diagnoses Diagnosis Erythema intertrigo Other specified erythematous condition documented in this encounter Additional Health Concerns Infection Onset Date Last Indicated Resolved Time Respiratory Rule-Out 06/13/2025 06/13/2025 025 2:20 PM EDT documented as of this encounter Care Teams Chest Painting Leader Relationship Specialty Start Date End Date Dominik Moses MD [address] [facility] [address] [place], [place] PCP - General Pediatrics 08/27/21 documented as of this encounter
== END 2025-09-23 11:10 | disposition home or self-care (01) ==
LOC: HO.HOP 10:21
PROVIDERS: Visit Provider Counselor Mental Health
DX: F41.1 Generalized anxiety disorder (principal); F33.1 Major depressive disorder, recurrent, moderate; F43.9 Reaction to severe stress, unspecified
CPT/HCPCS: 90834

== ENCOUNTER 2025-10-07 10:12 | Outpatient (AMB) | payer BC, MEDICAID, SELFPAY ==
--- OUTSIDE RECORDS SUMMARY | 2025-10-07 04:26 | XMS_ITS ---
[...] Immunizations Vaccine Date Status Unknown immunization status 10/07/2025 Comp leted Plan of Treatment Health Screenings Date Goal Action Comments August 21, 2025 Depression screening PHQ-2 Insurance Providers Payer name Policy type / Coverage type Policy ID Covered libertarian ID Policy [facility] ([facility] [id number] Self Notes * Video Encounter - 08/31/2025 SUBJECTIVE: Rema Cortez PA-C Supervising Physicians: Oscar Cardenas DO Patient Location: [place] Current time: 1:53 AM EDT Pt confirmed [...]
--- NOTE | 2025-10-07 10:15 | A.OFFWM_ITS ---
Intake Intake Visit Reasons: VIDEO OP Therapy Allergies ciclopirox Allergy (Intermediate, Verified 10/27/24 10:56) Rash gluten Adverse Reaction (Mild, Verified 10/27/24 16:52) Itching lactose Adverse Reaction (Mild, Verified 10/27/24 16:52) Itching PFSH Medical History Chronic pelvic pain in male Cyst of epididymis Testicular pain, left Scrotal pain Trauma and stressor-related disorder Major depressive disorder, recurrent episode Generalized anxiety disorder HIV (human immunodeficiency virus infection) Social History Comment: Alcohol occasional Substance Use Type: Marijuana Sexual orientation: Lesbian/Saenz/Homosexual Gender identity: Male Behavioral Health Assessment Weight Management Therapy Therapy Notes Details Subjective: Patient reports feeling discouraged and is experiencing fluctuations in pain levels. He recently met with a new leather cutter and described the session as adequate but not particularly productive. The patient requested a decrease in venlafaxine (Effexor) from 150 mg to 75 mg due to side effects, but has not yet started the lower dose. Objective: The patient attended the follow-up visit via Telehealth, presenting as alert, oriented, and engaged. During the session, CBT-based interventions were implemented, including cognitive restructuring to address negative thought patterns related to pain and discouragement. Behavioral activation strategies were introduced to encourage engagement in pleasurable or meaningful activities despite pain fluctuations. The patient was guided in identifying and challenging unhelpful beliefs about his ability to manage symptoms. Symptom management techniques such as relaxation breathing and brief mindfulness exercises were practiced to help reduce distress and improve coping. Psychoeducation was provided regarding the relationship between mood, pain, and medication changes, emphasizing the importance of monitoring symptoms and self-care during medication adjustments. The patient participated actively and demonstrated understanding of the strategies discussed. Assessment/Response: * Mental status: Patient is alert, oriented, and cooperative. Mood is discourage d but affect is appropriate. Thought processes are logical and coherent. No evidence of psychosis or severe mood disturbance. * Risk reported/identified: No current suicidal or homicidal ideation. No acute safety concerns identified. Assessment & Plan Assessment & Plan (1) Generalized anxiety disorder: Code(s): F41.1 - Generalized anxiety disorder (2) Major depressive disorder, recurrent episode: Code(s): F33.9 - Major depressive disorder, recurrent, unspecified Qualifiers: Major depression episode severity: moderate Qualified Code(s): F33.1 - Major depressive disorder, recurrent, moderate (3) Trauma and stressor-related disorder: Code(s): F43.9 - Reaction to severe stress, unspecified Plan Patient was advised to consider alternative psychiatric prescribers and provided with recommendations for [facility] (Dr. Carson) and [facility] (Dr. Montana). However, he expressed that he is not ready to pursue this at this time. Will continue to monitor mood, pain, and medication response. Follow-up scheduled in one week. * Next appointment:?10/14/25 at 12:00 PM via Telehealth. Telehealth Telehealth Telehealth Platform: [employer] Location of provider rendering services: other (Home office. [place], [place]) Location of patient: address on file Patient Identification confirmed using: Name, : Yes Telehealth method: video Patient verbally consented to treatment: Yes Patient verbally consented to billing insurance company: Yes Patient informed of any privacy concerns related to visit: Yes Minutes spent on Phone/Video with Pt.: 45 [place] [address] Tele Psytx 45 mins Patient Type Established Diagnoses Generalized anxiety disorder F41.1 Moderate episode of recurrent major depressive disorder F33.1 Major depression episode severity: moderate Trauma and stressor-related disorder F43.9 Time Spent (min) 45
--- OUTSIDE RECORDS SUMMARY | 2025-10-07 12:26 | XMS_ITS | Clinical Summary ---
Author Organization [facility] Address [address] [place] [address] Phone Care Team Providers Care Load Dropper Name Role Phone Jose Guadalupe Vargas MD Primary Care Provider [phone] Jose Guadalupe Vargas MD Unavailable [phone] Social History Tobacco Use Types Packs/Day Years Used Date Smoking Tobacco: Never Assessed Sex and Gender Information Value Date Recorded Sex Assigned at Not on file Legal Sex Male 7:37 PM EDT Gender Identity Not on file Sexual Orientation Not on file Plan of Treatment Not on file Care Teams Load Dropper Relationship Specialty Start Date End Date Jose Guadalupe Vargas MD [address] [place] [address] PCP - General 10/01/08 Jose Guadalupe Vargas MD [address] [place] [address] PCP - Insurance PCP 10/01/08
--- OUTSIDE RECORDS SUMMARY | 2025-10-07 12:26 | XMS_ITS | Encounter Summary ---
Author Organization [facility] Address [address] [place] [address] Care Team Providers Care High Pressure Firer Name Role Phone Dominik Moses MD Primary Care Provider Encounter Details Date Type Department Care Team (Late st Contact Info) Description 10/18/2024 Lab Requisition [facility] - Main Lab [address] [place] [address] Gissel Vasquez MD [address] [place] [id number] Erythema intertrigo Social History Tobacco Use Types [...] significant pathogens noted. 10/21/2024 10:53 AM EST [facility] Swab Urethral structure / Unknown 10/18/2024 10/18/2024 8:11 PM EST us Gissel Vasquez MD LAB MICROBIOLOGY - GENERA L ORDERABLES Final Result [facility] [address] [place] [address], documented in this encounter Visit Diagnoses Diagnosis Erythema intertrigo Other specified erythematous condition documented in this encounter Additional Health Concerns Infection Onset Date Last Indicated Resolved Time Respiratory Rule-Out 06/13/2025 06/13/2025 025 2:20 PM EDT documented as of this encounter Care Teams High Pressure Firer Relationship Specialty Start Date End Date Dominik Moses MD [address] [facility] [address] [place], [place] PCP - General Pediatrics 08/27/21 documented as of this encounter
--- OUTSIDE RECORDS SUMMARY | 2025-10-07 12:26 | XMS_ITS | Clinical Summary ---
Author Organization [facility] Address [address] [place] [id number] Phone Care Team Providers Care Hat Cone Inspector Name Role Phone Blanco Webster MD Primary Care Provider [phone] Social History Tobacco Use Types Packs/Day Years [...] age to complete this topic Care Teams Hat Cone Inspector Relationship Specialty Start Date End Date Blanco Webster MD [facility] [facility] [place] [address] PCP - General 03/21/18
--- OUTSIDE RECORDS SUMMARY | 2025-10-07 12:26 | XMS_ITS | Data Portability ---
Author Organization CHARLES - JOSEPH ROSALES MD [facility], Main Office Address [address] [place] [id number] Assessment Encounter Date Assessment Date Assessment LastModified by Organization Details LastModified Time 05/06/2024 05/06/2024 telehealth. Video. 17 min. pt home in [place]. [email or web address] Not available 05/06/2024 15:40:11 Plan of Treatment Reminders Order Date Submit Date Provider Last Modified By Organization Details Last Modified Time Details Appointments B20 FOLLOW UP 2024 01:00P Vania Robles MD Not available Not available Not available Lab chlamydi a trachoma tis + neisseri a gonorrho eae rRNA panel, PATRICIA+prob e, nasophar ynx 2024 025 [email or web address] [facility], [address] [place], [address], 06/19/2025 15:37:52 chlamydi a trachoma tis + neisseri a gonorrho eae + trichomo nacho vaginali s DNA panel, PATRICIA+prob e, urine 2024 025 [email or web address] [facility], [address] [place], [address], 06/19/2025 15:37:30 CT + NG rRNA, QL, PATRICIA+prob e, anorecta l 2024 025 [email or web address] [facility], [address] [place], [address], 06/19/2025 15:35:34 respirat ory virus panel, dfa 2024 025 [email or web address] [facility], [address], [place], [address], 06/19/2025 15:36:27 CBC w/ diff 2024 025 [email or web address] [facility], [address], [address], [place], [address], 06/20/2025 13:59:38 ALT (alanine aminotra nsferase ), serum or plasma 2024 025 [email or web address] [facility], [address], [address], [place], [address], 06/20/2025 13:59:38 AST/SGOT (asparta te aminotra nsferase ), serum or plasma 2024 025 [email or web address] [facility], [address], [address], [place], [address], 06/20/2025 13:59:38 creatini ne w/ estimate d GFR (eGFR), serum or plasma 2024 025 [email or web address] [facility], [address], [address], [place], [address], 06/20/2025 13:59:38 HIV-1 RNA, quantita tive, PCR, serum or plasma 2024 025 [email or web address] [facility], [address], [address], [place], [address], 06/20/2025 13:59:39 RPR (rapid plasma reagin), serum 2024 025 [email or web address] [facility], [address], [address], [place], [address], 06/20/2025 13:59:39 HBsAg (hepatit is B surface Ag), EIA, serum 2024 025 [email or web address] [facility], [address], [address], [place], [address], 06/20/2025 13:59:39 cd4 T-cells, blood 2024 025 [email or web address] [facility], [address], [place], [address], 06/20/2025 13:59:39 chlamydi a trachoma tis + neisseri a gonorrho eae rRNA panel, PATRICIA+prob e, nasophar ynx 2024 025 [email or web address] [facility], [address] [facility], [place], [address], 12/12/2024 14:31:30 chlamydi a trachoma tis + neisseri a gonorrho eae + trichomo nacho vaginali s DNA panel, PATRICIA+prob e, urine 2024 025 ISAIAS [facility], [address] [facility], [place], [address], 12/14/2024 12:05:46 urinalys is, complete 2024 025 ISAIAS [facility], [address] [facility], [place], [address], 12/14/2024 12:05:46 culture, urine 2024 025 ISAIAS [facility], [address] [facility], [place], [address], 12/14/2024 12:05:49 CT + NG rRNA, QL, PATRICIA+prob e, anorecta l 2024 025 [facility], [address] [facility], [place], [address], 12/12/2024 12:48:43 CBC w/ diff 2024 025 ISAIAS [facility], [address], [address], [place], [address], 12/14/2024 12:05:45 ALT (alanine aminotra nsferase ), serum or plasma 2024 025 ISAIAS [facility], [address], [address], [place], [address], 12/14/2024 12:05:48 AST/SGOT (asparta te aminotra nsferase ), serum or plasma 2024 025 ISAIAS [facility], [address], [address], [place], [address], 12/14/2024 12:05:48 CT + NG DNA, PCR, unspecif ied specimen 2024 025 [email or web address] [facility], [address], [address], [place], [address], 12/26/2024 09:18:27 creatini ne w/ estimate d GFR (eGFR), serum or plasma 2024 025 ISAIAS [facility], [address], [address], [place], [address], 12/14/2024 12:05:47 hepatiti s C virus Ab, serum 2024 025 [email or web address] [facility], [address], [address], [place], [address], 12/18/2024 10:04:24 HIV-1 RNA, quantita tive, PCR, serum or plasma 2024 025 ISAIAS [facility], [address], [address], [place], [address], 12/14/2024 12:05:47 RPR (rapid plasma reagin), serum 2024 025 ISAIAS [facility], [address], [address], [place], [address], 12/14/2024 12:05:48 HBsAg (hepatit is B surface Ag), EIA, serum 2024 025 ISAIAS [facility], [address], [address], [place], [address], 12/14/2024 12:05:49 cd4 T-cells, blood 2024 025 ISAIAS [facility], [address], [place], [address], 12/14/2024 12:05:47 microorg anism identifi cation, unspecif ied specimen 2023 024 [email or web address] [facility], [address] [place], [place] [address], [address], [place], [address], 10/29/2024 16:30:19 microorg anism identifi cation, unspecif ied specimen 2023 024 [email or web address] [facility], [address], [address], [place], [address], 10/29/2024 16:30:19 CBC w/ diff 2023 024 [email or web address] [facility], [address], [address], [place], [address], 10/29/2024 16:30:18 electrol ytes panel, blood 2023 024 [email or web address] [facility], [address], [address], [place], [address], 10/29/2024 16:30:18 ALT (alanine aminotra nsferase ), serum or plasma 2023 024 [email or web address] [facility], [address], [address], [place], [address], 10/29/2024 16:30:19 AST/SGOT (asparta te aminotra nsferase ), serum or plasma 2023 024 [email or web address] [facility], [address], [address], [place], [address], 10/29/2024 16:30:19 CT + NG DNA, PCR, unspecif ied specimen 2023 024 [email or web address] [facility], [address], [address], [place], [address], 11/05/2024 09:56:38 creatini ne w/ estimate d GFR (eGFR), serum or plasma 2023 024 [email or web address] [facility], [address], [address], [place], [address], 10/29/2024 16:30:19 hepatiti s C virus Ab, serum 2023 024 [email or web address] [facility], [address], [address], [place], [address], 10/29/2024 16:30:19 HIV-1 RNA, quantita tive, PCR, serum or plasma 2023 024 [email or web address] [facility], [address], [address], [place], [address], 10/29/2024 16:30:19 RPR (rapid plasma reagin), serum 2023 024 [email or web address] [facility], [address], [address], [place], [address], 10/29/2024 16:30:19 HBsAg (hepatit is B surface Ag), EIA, serum 2023 024 [email or web address] [facility], [address], [address], [place], [address], 10/29/2024 16:30:19 CBC w/ diff 2023 024 [email or web address] [facility], [address], [address], [place], [address], 07/26/2024 14:38:27 electrol ytes panel, blood 2023 024 [email or web address] [facility], [address], [address], [place], [address], 07/26/2024 14:38:27 ALT (alanine aminotra nsferase ), serum or plasma 2023 024 [email or web address] [facility], [address], [address], [place], [address], 07/26/2024 14:38:27 AST/SGOT (asparta te aminotra nsferase ), serum or plasma 2023 024 [email or web address] [facility], [address], [address], [place], [address], 07/26/2024 14:38:27 CT + NG DNA, PCR, unspecif ied specimen 2023 024 [email or web address] [facility], [address], [address], [place], [address], 07/26/2024 14:38:27 creatini ne w/ estimate d GFR (eGFR), serum or plasma 2023 024 [email or web address] [facility], [address], [address], [place], [address], 07/26/2024 14:38:27 hepatiti s C virus Ab, serum 2023 024 [email or web address] [facility], [address], [address], [place], [address], 07/26/2024 14:38:27 HIV-1 RNA, quantita tive, PCR, serum or plasma 2023 024 [email or web address] [facility], [address], [address], [place], [address], 07/26/2024 14:38:27 RPR (rapid plasma reagin), serum 2023 024 [email or web address] [facility], [address], [address], [place], [address], 07/26/2024 14:38:27 T-cell regulato ry subsets panel, blood 2023 024 [email or web address] [facility], [address], [address], [place], [address], 07/26/2024 14:38:28 Referral None recorded . Procedures None recorded . Surgeries None recorded . Imaging None recorded . Medication Orders doxycycl ine hyclate 100 mg capsule 2024 025 [id number], [address] [place] [address], [address], 06/13/2025 15:36:13 Biktarvy 50 mg-200 mg-25 mg tablet 2024 025 [facility], [address] [place] [address], [address], 06/13/2025 15:36:13 Augmenti n 500 mg-125 mg tablet 2024 025 [facility], [address] [place] [address], [address], 12/11/2024 11:19:02 Biktarvy 50 mg-200 mg-25 mg tablet 2024 025 [facility], [address] [place] [address], [address], 12/11/2024 11:19:02 Biktarvy 50 mg-200 mg-25 mg tablet 2023 024 [facility], [address] [place], [address], 10/18/2024 14:41:53 lidocain e 5 % topical patch 2023 024 [facility], [address] [place] [address], [address], 07/19/2024 15:14:52 diclofen ac 1 % topical gel 2023 024 [facility], [address] [place] [address], [address], 07/19/2024 15:18:09 Biktarvy 50 mg-200 mg-25 mg tablet 2023 024 [facility], [address] [place] [address], [address], 07/19/2024 15:14:55 multivit baez tablet 2023 024 [facility], [address] [place] [address], [address], 07/19/2024 15:16:52 fluconaz ole 100 mg tablet 2023 024 [facility], [address] [place] [address], [address], 05/06/2024 16:03:13 hydroxyz ine HCl 25 mg tablet [email or web address] [facility]07[facility], [address] [place] [address], [address], 05/29/2024 13:07:18 Biktarvy 50 mg-200 mg-25 mg tablet 2023 024 [facility], [address] [place] [address], [address], 05/06/2024 16:03:15 Patient TargetsNo targets recorded. Patient InstructionsNo instructions recorded. Reason for Referral None Reported. Results Created Date Observation Date Name Description Value Unit Range Abnormal Flag Note LastModifiedBy Organization Detail LastModifiedTime 04/15/20 24 04/15/2024 WOUND CULTU RE performing lab Perfor [facility], [facility] [address] [place] [address] Medic [facility] kaylie vargas MD Not Available [facility] [address] [place] [address], [address], 04/18/2024 12:12:18 04/15/20 24 04/18/2024 WOUND CULTU RE wound culture No patho gens noted PARRIS L SKIN IZABELLA PRESE NT GRAM STAIN RESUL T NO POLYS , NO EPITH ELIAL CELLS , NO ORGAN ISMS NOTED Not Available [facility] [address] [place] [address], [address], 04/18/2024 12:12:18 05/17/20 24 05/17/2024 GENIT AL CULTU RE performing lab Perfor daniel [facility] atori velasquez, [facility] [address] [place] [address] [facility] kaylie vargas MD Not Available [facility] [address] [place] [address], [address], 05/20/2024 11:46:31 05/17/20 24 05/20/2024 GENIT AL CULTU RE genital culture No yeast , Beta Strep Group B, Neiss eria gonor rhoea e, Liste jakob, Gardn erell a vagin brown, or other predo minan t potmirella pike y signi ficaide t patho gens noted . Not Available [facility] [address] [place] [address], [address], 05/20/2024 11:46:31 05/17/20 24 05/17/2024 FUNGU S CULTU RE,OT HER performing lab Perfor daniel [facility] es, [facility] [place] [address] [place] [address] Medic [facility] kaylie vargas MD Not Available [facility] [address] [place] [address], [address], 06/17/2024 08:03:22 05/17/20 24 06/17/2024 FUNGU S CULTU RE,OT HER fungus culture,othe r Negati ve for Fungus after 4 weeks Not Available [facility] [address] [place] [address], [address], 06/17/2024 08:03:22 07/19/20 24 07/20/2024 CHLAM YDIA DNA SWAB chlamydia DNA swab NEGATI VE negati ve This speci men type has not been evalu ated for this metho d. Inter pret resul ts with cauti on. SOURC E = ORAL Not Available [facility] [address] [place] [address], [address], 07/20/2024 08:43:26 07/19/20 24 07/20/2024 GC DNA SWAB GC DNA swab NEGATI VE negati ve This speci men type has not been evalu ated for this metho d. Inter pret resul ts with cauti on. SOURC E = ORAL Not Available [facility] [address] [place] [address], [address], 07/20/2024 08:43:27 07/19/20 24 07/20/2024 GC DNA SWAB performing lab Perfor daniel [facility], kris [facility]jo [facility] [address] [place] [address] Medic al [facility] kaylie vargas MD Not Available [facility] [address] [place] [address], [address], 07/20/2024 08:43:27 08/30/20 24 08/31/2024 CBC/D /PLT W/ REFLE X JUANCARLOS TIN WBC 5.9 x10e3 /uL 3.4-10 .8 normal Not Available [facility] ([facility]) [address] [facility], [place], [address], 09/03/2024 14:06:45 08/30/2008/31/2024 CBC/D /PLT W/ REFLE X JUANCARLOS TIN RBC 4.67 x10e6 /uL 4.14-5 .80 normal Not Available [facility] ([facility]) [address] [facility], [place], [address], 09/03/2024 14:06:45 08/30/2008/31/2024 CBC/D /PLT W/ REFLE X JUANCARLOS TIN hemoglobin 14.8 g/dL 13.0-1 7.7 normal Not Available [facility] ([facility]) [address] [facility], [place], [address], 09/03/2024 14:06:45 08/30/2008/31/2024 CBC/D /PLT W/ REFLE X JUANCARLOS TIN hematocrit 42.2 % 37.5-5 1.0 normal Not Available [facility] ([facility]) [address] [facility], [place], [address], 09/03/2024 14:06:45 08/30/2008/31/2024 CBC/D /PLT W/ REFLE X JUANCARLOS TIN MCV 90 fL 79-97 normal Not Available [facility] ([facility]) [address] [facility], [place], [address], 09/03/2024 14:06:45 08/30/2008/31/2024 CBC/D /PLT W/ REFLE X JUANCARLOS TIN MCH 31.7 pg 26.6-3 3.0 normal Not Available [facility] ([facility]) [address] [facility], [place], [address], 09/03/2024 14:06:45 08/30/20 24 08/31/2024 CBC/D /PLT W/ REFLE X JUANCARLOS TIN MCHC 35.1 g/dL 31.5-3 5.7 normal Not Available [facility] ([facility]) [address] [facility], [place], [address], 09/03/2024 14:06:45 08/30/2008/31/2024 CBC/D /PLT W/ REFLE X JUANCARLOS TIN RDW 12.7 % 11.6-1 5.4 Not Available [facility] ([facility]) [address] [facility], [place], [address], 09/03/2024 14:06:45 08/30/2008/31/2024 CBC/D /PLT W/ REFLE X JUANCARLOS TIN platelets 276 x10e3 /uL 150-45 0 normal Not Available [facility] ([facility]) [address] [facility], [place], [address], 09/03/2024 14:06:45 08/30/20 24 08/31/2024 CBC/D /PLT W/ REFLE X JUANCARLOS TIN neutrophils 39 % not estab. normal Not Available [facility] ([facility]) [address] [facility], [place], [address], 09/03/2024 14:06:45 08/30/2008/31/2024 CBC/D /PLT W/ REFLE X JUANCARLOS TIN lymphs 51 % not estab. normal Not Available [facility] ([facility]) [address] [facility], [place], [address], 09/03/2024 14:06:45 08/30/2008/31/2024 CBC/D /PLT W/ REFLE X JUANCARLOS TIN monocytes 8 % not estab. normal Not Available [facility] ([facility]) [address] [place], [address], 09/03/2024 14:06:45 08/30/2008/31/2024 CBC/D /PLT W/ REFLE X JUANCARLOS TIN eos 1 % not estab. normal Not Available [facility] ([facility]) [address] [place], [address], 09/03/2024 14:06:45 08/30/20 24 08/31/2024 CBC/D /PLT W/ REFLE X JUANCARLOS TIN basos 1 % not estab. normal Not Available [facility] ([facility]) [address] [facility], [place], [address], 09/03/2024 14:06:45 08/30/20 24 08/31/2024 CBC/D /PLT W/ REFLE X JUANCARLOS TIN immature cells BASEBALL SCOUT Not Available [facility] ([facility]) [address] [facility], [place], [address], 09/03/2024 14:06:45 08/30/20 24 08/31/2024 CBC/D /PLT W/ REFLE X JUANCARLOS TIN neutrophils (absolute) 2.3 x10e3 /uL 1.4-7. 0 normal Not Available [facility] ([facility]) [address] [facility], [place], [address], 09/03/2024 14:06:45 08/30/20 24 08/31/2024 CBC/D /PLT W/ REFLE X JUANCARLOS TIN lymphs (absolute) 3.0 x10e3 /uL 0.7-3. 1 normal Not Available [facility] ([facility]) [address] [facility], [place], [address], 09/03/2024 14:06:45 08/30/20 24 08/31/2024 CBC/D /PLT W/ REFLE X JUANCARLOS TIN monocytes(ab solute) 0.5 x10e3 /uL 0.1-0. 9 normal Not Available [facility] ([facility]) [address] [facility], [place], [address], 09/03/2024 14:06:45 08/30/20 24 08/31/2024 CBC/D /PLT W/ REFLE X JUANCARLOS TIN eos (absolute) 0.1 x10e3 /uL 0.0-0. 4 normal Not Available [facility] ([facility]) [address] [facility], [place], [address], 09/03/2024 14:06:45 08/30/2008/31/2024 CBC/D /PLT W/ REFLE X JUANCARLOS TIN baso (absolute) 0.0 x10e3 /uL 0.0-0. 2 normal Not Available [facility] ([facility]) [address] [facility], [place], [address], 09/03/2024 14:06:45 08/30/2008/31/2024 CBC/D /PLT W/ REFLE X JUANCARLOS TIN immature granulocytes 0 % not estab. Not Available [facility] ([facility]) [address] [facility], [place], [address], 09/03/2024 14:06:45 08/30/2008/31/2024 CBC/D /PLT W/ REFLE X JUANCARLOS TIN immature grans (abs) 0.0 x10e3 /uL 0.0-0. 1 Not Available [facility] ([facility]) [address] [facility], [place], [address], 09/03/2024 14:06:45 08/30/20 24 08/31/2024 CBC/D /PLT W/ REFLE X JUANCARLOS TIN NRBC BASEBALL SCOUT Not Available [facility] ([facility]) [address] [facility], [place], [address], 09/03/2024 14:06:45 08/30/2008/31/2024 CBC/D /PLT W/ REFLE X JUANCARLOS TIN hematology comments: BASEBALL SCOUT Not Available [facility] ([facility]) [address] [facility], [place], [address], 09/03/2024 14:06:45 08/30/20 24 08/31/2024 T-KYLE L ACTIV ATION , CD8 SUBSE TS absolute cd 3 2193 /uL 622-24 02 Not Available [facility] ([facility]) [address] [place], [address], 09/03/2024 14:06:45 08/30/2008/31/2024 T-KYLE L ACTIV ATION , CD8 SUBSE TS % cd 3 pos. lymph. 73.1 % 57.5-8 6.2 Not Available [facility] ([facility]) [address] [place], [address], 09/03/2024 14:06:45 08/30/2008/31/2024 T-KYLE L ACTIV ATION , CD8 SUBSE TS abs.cd8+hla- dr+lymph 45 /uL 0-117 Not Available [facility] ([facility]) [address] [place], [address], 09/03/2024 14:06:45 08/30/2008/31/2024 T-KYLE L ACTIV ATION , CD8 SUBSE TS % cd8+hla-dr+ lymphs 1.5 % 0.0-4. 9 Not Available [facility] ([facility]) [address] [place], [address], 09/03/2024 14:06:45 08/30/2008/31/2024 T-KYLE L ACTIV ATION , CD8 SUBSE TS % cd3+cd25+ lymphs 14.1 % 4.9-25 .9 Not Available [facility] ([facility]) [address] [place], [address], 09/03/2024 14:06:45 08/30/2008/31/2024 T-KYLE L ACTIV ATION , CD8 SUBSE TS abs.cd3+cd25 + lymphs 423 /uL 79-535 Not Available [facility] ([facility]) [address] [place], [address], 09/03/2024 14:06:45 08/30/2008/31/2024 T-KYLE L ACTIV ATION , CD8 SUBSE TS % cd8+cd38+ lymphs 15.7 % 0.0-17 .7 Not Available [facility] ([facility]) [address] [place], [address], 09/03/2024 14:06:45 08/30/2008/31/2024 T-KYLE L ACTIV ATION , CD8 SUBSE TS abs.cd8+cd38 + lymphs 471 /uL 0-381 above high normal Not Available [facility] ([facility]) [address] [place], [address], 09/03/2024 14:06:45 08/30/2009/02/2024 T-KYLE L ACTIV ATION , CD8 SUBSE TS absolute cd 4 helper 1206 /uL 359-15 19 Not Available [facility] ([facility]) [address] [place], [address], 09/03/2024 14:06:45 08/30/2009/02/2024 T-KYLE L ACTIV ATION , CD8 SUBSE TS % cd 4 pos. lymph. 40.2 % 30.8-5 8.5 Not Available [facility] ([facility]) [address] [place], [address], 09/03/2024 14:06:45 08/30/2009/02/2024 T-KYLE L ACTIV ATION , CD8 SUBSE TS absolute cd 8 (supp) 942 /uL 109-89 7 above high normal Not Available [facility] ([facility]) [address] [place], [address], 09/03/2024 14:06:45 08/30/2009/02/2024 T-KYLE L ACTIV ATION , CD8 SUBSE TS % cd 8 pos. lymph. 31.4 % 12.0-3 5.5 Not Available [facility] ([facility]) [address] [place], [address], 09/03/2024 14:06:45 08/30/20 24 09/02/2024 T-KYLE L ACTIV ATION , CD8 SUBSE TS cd4/cd8 ratio 1.28 0.92-3 .72 Not Available [facility] ([facility]) [address] [place], [address], 09/03/2024 14:06:45 08/30/20 24 08/31/2024 ELECT ROLYT E PANEL sodium 140 mmol/ L 134-14 4 normal Not Available [facility] ([facility]) [address] [place], [address], 09/03/2024 14:06:46 08/30/2008/31/2024 ELECT ROLYT E PANEL potassium 4.1 mmol/ L 3.5-5. 2 normal Not Available [facility] ([facility]) [address] [place], [address], 09/03/2024 14:06:46 08/30/2008/31/2024 ELECT ROLYT E PANEL chloride 101 mmol/ L 96-106 normal Not Available [facility] ([facility]) [address] [place], [address], 09/03/2024 14:06:46 08/30/2008/31/2024 ELECT ROLYT E PANEL carbon dioxide, total 24 mmol/ L 20-29 normal Not Available [facility] ([facility]) [address] [place], [address], 09/03/2024 14:06:46 08/30/2009/03/2024 CHLAM YDIA/ GC AMPLI FICAT ION chlamydia trachomatis, PATRICIA COMMEN T Dupli ash proce dure order ed. Not Available [facility] ([facility]) [address] [place], [address], 09/03/2024 14:06:46 08/30/2009/03/2024 CHLAM YDIA/ GC AMPLI FICAT ION neisseria gonorrhoeae, PATRICIA COMMEN T Dupli ash proce dure order ed. Not Available [facility] ([facility]) [address] [facility], [place], [address], 09/03/2024 14:06:46 08/30/2008/31/2024 GLOM FILT RATE, ESTIM ATED creatinine 1.04 mg/dL 0.76-1 .27 normal Not Available [facility] ([facility]) [address] [facility], [place], [address], 09/03/2024 14:06:47 08/30/2008/31/2024 GLOM FILT RATE, ESTIM ATED eGFR 104 mL/mi n/1.7 3 >59 normal Not Available [facility] ([facility]) [address] [facility], [place], [address], 09/03/2024 14:06:47 08/30/2009/01/2024 HCV ANTIB MELL RFX TO QUANT PCR HCV Ab Non Reacti ve non reacti ve Not Available [facility] ([facility]) [address] [facility], [place], [address], 09/03/2024 14:06:47 08/30/2009/01/2024 HCV ANTIB MELL RFX TO QUANT PCR interpretati on: Commen t Not infec daphnie with HCV unles s early or acute infec tion is suspe cted (whic h may be delay ed in an immun ocomp romis ed indiv idual ), or other evide nce exist s to indic ate HCV infec tion. Not Available [facility] ([facility]) [address] [facility], [place], [address], 09/03/2024 14:06:47 08/30/2008/31/2024 RNA, REAL TIME PCR (NON- GRAPH ) HIV-1 RNA by PCR <20 copie s/mL HIV-1 RNA detec daphnie The repor table range for this assay is 20 to 10,00 0,000 copie s HIV-1 RNA/m L. Not Available [facility] ([facility]) [address] [facility], [place], [address], 09/03/2024 14:06:47 08/30/20 24 08/31/2024 RNA, REAL TIME PCR (NON- GRAPH ) log10 HIV-1 RNA COMMEN T log10 copy/ mL Unabl e to calcu late resul t since non-n umeri c resul t obtai verena for compo nent test. Not Available [facility] ([facility]) [address] [facility], [place], [address], 09/03/2024 14:06:47 08/30/20 24 09/02/2024 PREP: RPR W/REF ARIADNA TITER +TPAB RPR Reacti ve non reacti ve abnormal Not Available [facility] ([facility]) [address] [place], [address], 09/03/2024 14:06:48 08/30/20 24 09/02/2024 PREP: RPR W/REF ARIADNA TITER +TPAB RPR, quant. 1:1 titer nonrea <1:1 above high normal Not Available [facility] ([facility]) [address] [facility], [place], [address], 09/03/2024 14:06:48 08/30/20 24 09/02/2024 PREP: RPR [...] lis unlik santiago; biolo gical false posit gilels possi ble. Retes t in 2-4 weeks if recen t expos ure is suspe cted. ----- --- ----- ---- ----- ----- ----- ----- ----- ----- ---- React gilles >/=1: 1 React gilles Trepo nemal and nontr epone mal antib odies detec daphnie. Consi stent with past or curre nt (pote ntial early ) syphi lis. Not Available [facility] ([facility]) [address] [place], [address], 09/03/2024 14:06:48 08/30/2009/03/2024 PREP: RPR W/REF ARIADNA TITER +TPAB treponema pallidum antibodies Non Reacti ve non reacti ve Not Available [facility] ([facility]) [address] [place], [address], 09/03/2024 14:06:48 08/30/2008/31/2024 AST (SGOT ) AST (SGOT) 32 IU/L 0-40 normal Not Available [facility] ([facility]) [address] [place], [address], 09/03/2024 14:06:48 08/30/2008/31/2024 ALT (SGPT ) ALT (SGPT) 28 IU/L 0-44 normal Not Available [facility] ([facility]) [address] [facility] [address], [place], [address], 09/03/2024 14:06:48 08/30/20 24 09/03/[address] PROBL EM request problem COMMEN T Dupli ash proce dure order ed. TEST: [id number] Chlam ydia trach omati s, PATRICIA Panel : [id number] [phone] [id number] [phone] Neiss eria gonor rhoea e, PATRICIA Panel : [id number] Not Available [facility] ([facility]) [address] [facility] [address] [facility], [place], [address], 09/03/2024 14:06:49 10/18/20 24 10/18/2024 CULTU RE EYE WITH GRAM STAIN .note See Note Origi nal Order ing Provi eliot: NANO AARON Bezty YOUSIF CONNIE [facility] - [address] [facility], [place], [facility] [place] [id number] Not Available [facility] [address] [place] [address], [address], 10/18/2024 21:54:53 10/18/20 24 10/18/2024 CULTU RE EYE WITH GRAM STAIN gram stain result No polymo rphonu clear leukoc ytes, No epithe lial cells, and No organi sms noted Not Available [facility] [address] [place], [address], 10/18/2024 21:54:53 10/18/20 24 10/18/2024 CULTU RE GENIT AL .note See Note Origi nal Order ing Provi eliot: NANO WALKER Betzy NICA CONNIE [facility] - [address] [facility], [place] og[place] j[place], [facility] [place] [id number] Not Available [facility] [address] [place], [address], 10/19/2024 13:33:31 10/18/20 24 10/18/2024 CULTU RE GENIT AL culture, genital No growth at 1 day Not Available [facility] [address] [place], [address], 10/19/2024 13:33:31 10/18/20 24 10/18/2024 CULTU RE EYE WITH GRAM STAIN .note See Note Origi nal Order ing Provi eliot: NANO STOVERO CONNEI [facility] - [address] [facility], [place], [facility] [place] [id number] Not Available [facility] [address] [place] [address], [address], 10/20/2024 10:37:32 10/18/20 24 10/18/2024 CULTU RE EYE WITH GRAM STAIN culture, eye Screen ing for Pathog ens Not Available [facility] [address] [place] [address], [address], 10/20/2024 10:37:32 10/18/20 24 10/18/2024 CULTU RE EYE WITH GRAM STAIN gram stain result No polymo rphonu clear leukoc ytes, No epithe lial cells, and No organi sms noted Not Available [facility] [address] [place] [address], [address], 10/20/2024 10:37:32 10/18/20 24 10/18/2024 CULTU RE GENIT AL .note See Note Origi nal Order ing Provi eliot: NANO Bo MARTO CONNIE [facility] - [address] [facility], [place], [facility] [place] [id number] Not Available [facility] [address] [place] [address], [address], 10/20/2024 11:32:32 10/18/20 24 10/18/2024 CULTU RE GENIT AL culture, genital No pathog ens isolat ed to date. Not Available [facility] [address] [place] [address], [address], 10/20/2024 11:32:32 10/18/20 24 10/18/2024 CULTU RE EYE WITH GRAM STAIN .note See Note Origi nal Order ing Provi eliot: NANO IA T MARTO CONNIE [facility] [address] [facility] [place] [id number] Not Available [facility] [address] [place], [address], 10/21/2024 10:52:48 10/18/20 24 10/18/2024 CULTU RE EYE WITH GRAM STAIN culture, eye No pathog ens isolat ed. Not Available [facility] [address] [place] [address], [address], 10/21/2024 10:52:48 10/18/20 24 10/18/2024 CULTU RE EYE WITH GRAM STAIN gram stain result No polymo rphonu clear leukoc ytes, No epithe lial cells, and No organi sms noted Not Available [facility] [address] [place] [address], [address], 10/21/2024 10:52:48 10/18/20 24 10/18/2024 CULTU RE GENIT AL .note See Note Origi nal Order ing Provi eliot: NANO YOUSIF CONNIE [facility] - [address] [facility], [place] [address], [place] [id number] Not Available [facility] [address] [place] [address], [address], 10/21/2024 10:54:44 10/18/20 24 10/18/2024 CULTU RE GENIT AL culture, genital No yeast, Beta Strep group B, Neisse jakob gonorr hoeae, Stella ia, Gardne rella vagina lis, or other predom inant potent ially signif icant pathog ens noted. Not Available [facility] [address] [place] [address], [address], 10/21/2024 10:54:44 12/11/19 25 12/11/2024 URINA LYSIS WITH REFLE X MICRO SCOPI C specific gravity urine 1.026 1.003- 1.030 Not Available [facility] [address] [place] [address], [address], 12/11/2024 19:39:08 12/11/1912/11/2024 URINA LYSIS WITH REFLE X MICRO SCOPI C pH, urine 5.5 pH 5.0-8. 0 Not Available [facility] [address] [place], [address], 12/11/2024 19:39:08 12/11/19 25 12/11/2024 URINA LYSIS WITH REFLE X MICRO SCOPI C leukocytes, urine Trace negati ve abnormal Not Available [facility] [address] [place], [address], 12/11/2024 19:39:08 12/11/1912/11/2024 URINA LYSIS WITH REFLE X MICRO SCOPI C nitrite, urine Negati ve negati ve Not Available [facility] [address] [place], [address], 12/11/2024 19:39:08 12/11/1912/11/2024 URINA LYSIS WITH REFLE X MICRO SCOPI C protein, urine Trace mg/dL <=trac e Not Available [facility] [address] [place], [address], 12/11/2024 19:39:08 12/11/1912/11/2024 URINA LYSIS WITH REFLE X MICRO SCOPI C glucose, urine Negati ve mg/dL negati ve Not Available [facility] [address] [place], [address], 12/11/2024 19:39:08 12/11/1912/11/2024 URINA LYSIS WITH REFLE X MICRO SCOPI C ketones, urine 15 mg/dL negati ve abnormal Not Available [facility] [address] [place], [address], 12/11/2024 19:39:08 12/11/1912/11/2024 URINA LYSIS WITH REFLE X MICRO SCOPI C urobilinogen , urine 1.0 mg/dL 0.2-1. 0 Not Available [facility] [address] [place], [address], 12/11/2024 19:39:08 12/11/19 25 12/11/2024 URINA LYSIS WITH REFLE X MICRO SCOPI C bilirubin, urine Negati ve negati ve Not Available [facility] [address] [place] [address], [address], 12/11/2024 19:39:08 12/11/19 25 12/11/2024 URINA LYSIS WITH REFLE X MICRO SCOPI C blood, urine Negati ve negati ve Not Available [facility] [address] [place] [address], [address], 12/11/2024 19:39:08 12/11/19 25 12/11/2024 URINA LYSIS WITH REFLE X MICRO SCOPI C RBC, urine 4.7 /hpf 0-4 high Not Available [facility] [address] [place] [address], [address], 12/11/2024 19:39:08 12/11/19 25 12/11/2024 URINA LYSIS WITH REFLE X MICRO SCOPI C WBC, urine 0.0 /hpf 0-4 Not Available [facility] [address] [place] [address], [address], 12/11/2024 19:39:08 12/11/19 25 12/11/2024 URINA LYSIS WITH REFLE X MICRO SCOPI C squamous epithelial, urine 3 /lpf 0-60 Not Available [facility] [address] [place] [address], [address], 12/11/2024 19:39:08 12/11/19 25 12/11/2024 URINA LYSIS WITH REFLE X MICRO SCOPI C bacteria, urine Negati ve /hpf negati ve Not Available [facility] [address] [place] [address], [address], 12/11/2024 19:39:08 12/11/19 25 12/11/2024 URINA LYSIS WITH REFLE X MICRO SCOPI C hyaline casts, urine 0.0 /lpf 0-3 Not Available [facility] [address] [place] [address], [address], 12/11/2024 19:39:08 12/11/19 25 12/11/2024 URINA LYSIS WITH REFLE X MICRO SCOPI C note See Report [facility], [address] [facility], [place], [place] [phone] Not Available [facility] [address] [place], [address], 12/11/2024 19:39:08 12/11/19 25 12/11/2024 CULTU RE WOUND DEEP .note See Note Origi nal Order ing Provi eliot: NANO IA T MARTO CONNIE [facility] - [address] [facility] , [place], [place] [id number] Not Available [facility] [address] [place], [address], 12/15/2024 12:35:17 12/11/19 25 12/11/2024 CULTU RE [...] 1224 EST. Not Available [facility] [address] [place], [address], 12/15/2024 12:35:17 12/11/19 25 12/11/2024 CULTU RE WOUND DEEP gram stain result No polymo rphonu clear leukoc ytes, No epithe lial cells, and No organi sms noted Not Available [facility] [address] [place], [address], 12/15/2024 12:35:17 12/11/19 25 12/11/2024 CULTU RE [...] Susc Islt 0.5 S Not Available [facility] [address] [place] [address], [address], 12/15/2024 12:35:17 12/11/1912/11/2024 CHLAM YDIA TRACH OMATI S AND NEISS ERIA GONOR RHOEA E MOLEC ULAR STUDY .note See Note Origi nal Order ing Provi eliot: NANO YOUSIF CONNIE [facility] - [address] [facility], [place], [place] [id number] Not Available [facility] [address] [place] [address], [address], 12/12/2024 09:15:45 12/11/1912/11/2024 CHLAM YDIA TRACH OMATI S AND NEISS ERIA GONOR RHOEA E MOLEC ULAR STUDY neisseria gonorrhoeae PCR Negati ve negati ve Not Available [facility] [address] [place], [address], 12/12/2024 09:15:45 12/11/1912/11/2024 CHLAM YDIA TRACH OMATI S AND NEISS ERIA GONOR RHOEA E MOLEC ULAR STUDY chlamydia trachomatis PCR Negati ve negati ve Not Available [facility] [address] [place], [address], 12/12/2024 09:15:45 12/11/19 25 12/11/2024 CHLAM YDIA TRACH OMATI S AND NEISS ERIA GONOR RHOEA E MOLEC ULAR STUDY .note See Note Origi nal Order ing Provi eliot: NANO YOUSIF CNONIE [facility] - [address] [facility], [facility], [facility] [place] [id number] Not Available [facility] [address] [place] [address], [address], 12/12/2024 09:15:47 12/11/19 25 12/11/2024 CHLAM YDIA TRACH OMATI S AND NEISS ERIA GONOR RHOEA E MOLEC ULAR STUDY neisseria gonorrhoeae PCR Negati ve negati ve Not Available [facility] [address] [place] [address], [address], 12/12/2024 09:15:47 12/11/19 25 12/11/2024 CHLAM YDIA TRACH OMATI S AND NEISS ERIA GONOR RHOEA E MOLEC ULAR STUDY chlamydia trachomatis PCR Negati ve negati ve Not Available [facility] [address] [place] [address], [address], 12/12/2024 09:15:47 12/11/19 25 12/11/2024 CHLAM YDIA TRACH OMATI S AND NEISS ERIA GONOR RHOEA E MOLEC ULAR STUDY .note See Note Origi nal Order ing Provi eliot: NANO YOUSIF CONNIE [facility] - [address] [facility], [facility] d, [facility] [place] [phone] Not Available [facility] [address] [place] [address], [address], 12/12/2024 09:30:50 12/11/19 25 12/11/2024 CHLAM YDIA TRACH OMATI S AND NEISS ERIA GONOR RHOEA E MOLEC ULAR STUDY neisseria gonorrhoeae PCR Negati ve negati ve Not Available [facility] [address] [place] [address], [address], 12/12/2024 09:30:50 12/11/19 25 12/11/2024 CHLAM YDIA TRACH OMATI S AND NEISS ERIA GONOR RHOEA E MOLEC ULAR STUDY chlamydia trachomatis PCR Negati ve negati ve Not Available [facility] [address] [place], [address], 12/12/2024 09:30:50 12/11/19 25 12/12/2024 CBC/D /PLT W/ REFLE X JUANCARLOS TIN WBC 6.4 x10e3 /uL 3.4-10 .8 normal Not Available [facility] ([facility]) [address] [place], [address], 12/14/2024 12:05:45 12/11/19 25 12/12/2024 CBC/D /PLT W/ REFLE X JUANCARLOS TIN RBC 5.06 x10e6 /uL 4.14-5 .80 normal Not Available [facility] ([facility]) [address] [place], [address], 12/14/2024 12:05:45 12/11/19 25 12/12/2024 CBC/D /PLT W/ REFLE X JUANCARLOS TIN hemoglobin 15.8 g/dL 13.0-1 7.7 normal Not Available [facility] ([facility]) [address] [place], [address], 12/14/2024 12:05:45 12/11/19 25 12/12/2024 CBC/D /PLT W/ REFLE X JUANCARLOS TIN hematocrit 45.1 % 37.5-5 1.0 normal Not Available [facility] ([facility]) [address] [place], [address], 12/14/2024 12:05:45 12/11/19 25 12/12/2024 CBC/D /PLT W/ REFLE X JUANCARLOS TIN MCV 89 fL 79-97 normal Not Available [facility] ([facility]) [address] [place], [address], 12/14/2024 12:05:45 12/11/19 25 12/12/2024 CBC/D /PLT W/ REFLE X JUANCARLOS TIN MCH 31.2 pg 26.6-3 3.0 normal Not Available [facility] ([facility]) [address] [facility], [place], [address], 12/14/2024 12:05:45 12/11/19 25 12/12/2024 CBC/D /PLT W/ REFLE X JUANCARLOS TIN MCHC 35.0 g/dL 31.5-3 5.7 normal Not Available [facility] ([facility]) [address] [place], [address], 12/14/2024 12:05:45 12/11/19 25 12/12/2024 CBC/D /PLT W/ REFLE X JUANCARLOS TIN RDW 12.1 % 11.6-1 5.4 Not Available [facility] ([facility]) [address] [facility], [place], [address], 12/14/2024 12:05:45 12/11/19 25 12/12/2024 CBC/D /PLT W/ REFLE X JUANCARLOS TIN platelets 268 x10e3 /uL 150-45 0 normal Not Available [facility] ([facility]) [address] [place], [address], 12/14/2024 12:05:45 12/11/19 25 12/12/2024 CBC/D /PLT W/ REFLE X JUANCARLOS TIN neutrophils 57 % not estab. normal Not Available [facility] ([facility]) [address] [place], [address], 12/14/2024 12:05:45 12/11/19 25 12/12/2024 CBC/D /PLT W/ REFLE X JUANCARLOS TIN lymphs 35 % not estab. normal Not Available [facility] ([facility]) [address] [place], [address], 12/14/2024 12:05:45 12/11/19 25 12/12/2024 CBC/D /PLT W/ REFLE X JUANCARLOS TIN monocytes 7 % not estab. normal Not Available [facility] ([facility]) [address] [facility], [place], [address], 12/14/2024 12:05:45 12/11/19 25 12/12/2024 CBC/D /PLT W/ REFLE X JUANCARLOS TIN eos 1 % not estab. normal Not Available [facility] ([facility]) [address] [place], [address], 12/14/2024 12:05:45 12/11/19 25 12/12/2024 CBC/D /PLT W/ REFLE X JUANCARLOS TIN basos 0 % not estab. normal Not Available [facility] ([facility]) [address] [facility], [place], [address], 12/14/2024 12:05:45 12/11/19 25 12/12/2024 CBC/D /PLT W/ REFLE X JUANCARLOS TIN immature cells BASEBALL SCOUT Not Available [facility] ([facility]) [address] [facility], [place], [address], 12/14/2024 12:05:45 12/11/19 25 12/12/2024 CBC/D /PLT W/ REFLE X JUANCARLOS TIN neutrophils (absolute) 3.6 x10e3 /uL 1.4-7. 0 normal Not Available [facility] ([facility]) [address] [place], [address], 12/14/2024 12:05:45 12/11/19 25 12/12/2024 CBC/D /PLT W/ REFLE X JUANCARLOS TIN lymphs (absolute) 2.3 x10e3 /uL 0.7-3. 1 normal Not Available [facility] ([facility]) [address] [place], [address], 12/14/2024 12:05:45 12/11/19 25 12/12/2024 CBC/D /PLT W/ REFLE X JUANCARLOS TIN monocytes(ab solute) 0.4 x10e3 /uL 0.1-0. 9 normal Not Available [facility] ([facility]) [address] [facility], [place], [address], 12/14/2024 12:05:45 12/11/19 25 12/12/2024 CBC/D /PLT W/ REFLE X JUANCARLOS TIN eos (absolute) 0.1 x10e3 /uL 0.0-0. 4 normal Not Available [facility] ([facility]) [address] [facility], [place], [address], 12/14/2024 12:05:45 12/11/19 25 12/12/2024 CBC/D /PLT W/ REFLE X JUANCARLOS TIN baso (absolute) 0.0 x10e3 /uL 0.0-0. 2 normal Not Available [facility] ([facility]) [address] [facility], [place], [address], 12/14/2024 12:05:45 12/11/19 25 12/12/2024 CBC/D /PLT W/ REFLE X JUANCARLOS TIN immature granulocytes 0 % not estab. Not Available [facility] ([facility]) [address] [place], [address], 12/14/2024 12:05:45 12/11/19 25 12/12/2024 CBC/D /PLT W/ REFLE X JUANCARLOS TIN immature grans (abs) 0.0 x10e3 /uL 0.0-0. 1 Not Available [facility] ([facility]) [address] [place], [address], 12/14/2024 12:05:45 12/11/19 25 12/12/2024 CBC/D /PLT W/ REFLE X JUANCARLOS TIN NRBC BASEBALL SCOUT Not Available [facility] ([facility]) [address] [facility], [place], [address], 12/14/2024 12:05:45 12/11/19 25 12/12/2024 CBC/D /PLT W/ REFLE X JUANCARLOS TIN hematology comments: BASEBALL SCOUT Not Available [facility] ([facility]) [address] [facility], [place], [address], 12/14/2024 12:05:45 12/11/19 25 12/12/2024 URINA LYSIS , COMPL ETE specific gravity 1.008 1.005- 1.030 normal Not Available [facility] ([facility]) [address] [facility], [place], [address], 12/14/2024 12:05:46 12/11/19 25 12/12/2024 URINA LYSIS , COMPL ETE pH 6.0 5.0-7. 5 normal Not Available [facility] ([facility]) [address] [facility], [place], [address], 12/14/2024 12:05:46 12/11/19 25 12/12/2024 URINA LYSIS , COMPL ETE urine-color Yellow yellow Not Available [facility] ([facility]) [address] [facility], [place], [address], 12/14/2024 12:05:46 12/11/19 25 12/12/2024 URINA LYSIS , COMPL ETE appearance Clear clear Not Available [facility] ([facility]) [address] [facility], [place], [address], 12/14/2024 12:05:46 12/11/19 25 12/12/2024 URINA LYSIS , COMPL ETE WBC esterase Negati ve negati ve Not Available [facility] ([facility]) [address] [facility], [place], [address], 12/14/2024 12:05:46 12/11/19 25 12/12/2024 URINA LYSIS , COMPL ETE protein Negati ve negati ve/tra ce Not Available [facility] ([facility]) [address] [place], [address], 12/14/2024 12:05:46 12/11/19 25 12/12/2024 URINA LYSIS , COMPL ETE glucose Negati ve negati ve Not Available [facility] ([facility]) [address] [place], [address], 12/14/2024 12:05:46 12/11/19 25 12/12/2024 URINA LYSIS , COMPL ETE ketones Negati ve negati ve Not Available [facility] ([facility]) [address] [place], [address], 12/14/2024 12:05:46 12/11/19 25 12/12/2024 URINA LYSIS , COMPL ETE occult blood Negati ve negati ve Not Available [facility] ([facility]) [address] [place], [address], 12/14/2024 12:05:46 12/11/19 25 12/12/2024 URINA LYSIS , COMPL ETE bilirubin Negati ve negati ve Not Available [facility] ([facility]) [address] [place], [address], 12/14/2024 12:05:46 12/11/19 25 12/12/2024 URINA LYSIS , COMPL ETE urobilinogen ,semi-qn 0.2 mg/dL 0.2-1. 0 normal Not Available [facility] ([facility]) [address] [place], [address], 12/14/2024 12:05:46 12/11/19 25 12/12/2024 URINA LYSIS , COMPL ETE nitrite, urine Negati ve negati ve Not Available [facility] ([facility]) [address] [place], [address], 12/14/2024 12:05:46 12/11/19 25 12/12/2024 URINA LYSIS , COMPL ETE microscopic examination Commen t Micro scopi c follo ws if indic ated. Not Available [facility] ([facility]) [address] [facility], [place], [address], 12/14/2024 12:05:46 12/11/19 25 12/12/2024 URINA LYSIS , COMPL ETE microscopic examination See below: Micro scopi c was indic ated and was perfo rmed. Not Available [facility] ([facility]) [address] [facility], [place], [address], 12/14/2024 12:05:46 12/11/19 25 12/12/2024 URINA LYSIS , COMPL ETE WBC None seen /hpf 0 - 5 Not Available [facility] ([facility]) [address] [facility], [place], [address], 12/14/2024 12:05:46 12/11/19 25 12/12/2024 URINA LYSIS , COMPL ETE RBC 0-2 /hpf 0 - 2 Not Available [facility] ([facility]) [address] [facility], [place], [address], 12/14/2024 12:05:46 12/11/19 25 12/12/2024 URINA LYSIS , COMPL ETE epithelial cells (non renal) None seen /hpf 0 - 10 Not Available [facility] ([facility]) [address] [facility], [place], [address], 12/14/2024 12:05:46 12/11/19 25 12/12/2024 URINA LYSIS , COMPL ETE epithelial cells (renal) BASEBALL SCOUT Not Available [facility] ([facility]) [address] [facility], [place], [address], 12/14/2024 12:05:46 12/11/19 25 12/12/2024 URINA LYSIS , COMPL ETE casts None seen /lpf none seen Not Available [facility] ([facility]) [address] [facility], [place], [address], 12/14/2024 12:05:46 12/11/19 25 12/12/2024 URINA LYSIS , COMPL ETE cast type BASEBALL SCOUT Not Available [facility] ([facility]) [address] [facility], [place], [address], 12/14/2024 12:05:46 12/11/19 25 12/12/2024 URINA LYSIS , COMPL ETE crystals BASEBALL SCOUT Not Available [facility] ([facility]) [address] [facility] [place], [address], 12/14/2024 12:05:46 12/11/19 25 12/12/2024 URINA LYSIS , COMPL ETE crystal type BASEBALL SCOUT Not Available [facility] ([facility]) [address] [facility], [place], [address], 12/14/2024 12:05:46 12/11/19 25 12/12/2024 URINA LYSIS , COMPL ETE mucus threads BASEBALL SCOUT Not Available [facility] ([facility]) [address] [place], [address], 12/14/2024 12:05:46 12/11/19 25 12/12/2024 URINA LYSIS , COMPL ETE bacteria None seen none seen/f ew Not Available [facility] ([facility]) [address] [place], [address], 12/14/2024 12:05:46 12/11/19 25 12/12/2024 URINA LYSIS , COMPL ETE yeast BASEBALL SCOUT Not Available [facility] ([facility]) [address] [place], [address], 12/14/2024 12:05:46 12/11/19 25 12/12/2024 URINA LYSIS , COMPL ETE trichomonas BASEBALL SCOUT Not Available [facility] ([facility]) [address] [place], [address], 12/14/2024 12:05:46 12/11/19 25 12/12/2024 URINA LYSIS , COMPL ETE comment BASEBALL SCOUT Not Available [facility] ([facility]) [address] [facility], [place], [address], 12/14/2024 12:05:46 12/11/19 25 12/13/2024 CT/GC /TV PATRICIA+M YCOPL ASMAS URINE mycoplasma genitalium PATRICIA Negati ve negati ve Not Available [facility] ([facility]) [address] [facility], [place], [address], 12/14/2024 12:05:46 12/11/19 25 12/13/2024 CT/GC /TV PATRICIA+M YCOPL ASMAS URINE mycoplasma hominis PATRICIA Negati ve negati ve Not Available [facility] ([facility]) [address] [facility], [place], [address], 12/14/2024 12:05:46 12/11/19 25 12/13/2024 CT/GC /TV PATRICIA+M YCOPL ASMAS URINE ureaplasma spp PATRICIA Negati ve negati ve Not Available [facility] ([facility]) [address] [facility], [place], [address], 12/14/2024 12:05:46 12/11/19 25 12/13/2024 CT/GC /TV PATRICIA+M YCOPL ASMAS URINE trich vag by PATRICIA Negati ve negati ve Not Available [facility] ([facility]) [address] [facility], [place], [address], 12/14/2024 12:05:46 12/11/19 25 12/13/2024 CT/GC /TV PATRICIA+M YCOPL ASMAS URINE chlamydia trachomatis, PATRICIA Negati ve negati ve Not Available [facility] ([facility]) [address] [facility], [place], [address], 12/14/2024 12:05:46 01/29/20 25 12/13/2024 CT/GC /TV PATRICIA+M YCOPL ASMAS URINE neisseria gonorrhoeae, PATRICIA Negati ve negati ve Not Available [facility] ([facility]) [address] [facility], [place], [address], 12/14/2024 12:05:46 12/11/19 25 12/12/2024 RNA, REAL TIME PCR (GRAP H) HIV-1 RNA by PCR <20 copie s/mL HIV-1 RNA not detec daphnie The repor table range for this assay is 20 to 10,00 0,000 copie s HIV-1 RNA/m L. Not Available [facility] ([facility]) [address] [facility], [place], [address], 12/14/2024 12:05:47 12/11/19 25 12/12/2024 RNA, REAL TIME PCR (GRAP H) log10 HIV-1 RNA COMMEN T log10 copy/ mL Unabl e to calcu late resul t since non-n umeri c resul t obtai verena for compo nent test. Not Available [facility] ([facility]) [address] [facility], [place], [address], 12/14/2024 12:05:47 12/11/19 25 12/13/2024 RNA, REAL TIME PCR (GRAP H) pdf . Not Available [facility] ([facility]) [address] [place], [address], 12/14/2024 12:05:47 12/11/19 25 12/12/2024 CD4+L YMPHS absolute cd 4 helper 846 /uL 359-15 19 Not Available [facility] ([facility]) [address] [place], [address], 12/14/2024 12:05:47 12/11/19 25 12/12/2024 CD4+L YMPHS % cd 4 pos. lymph. 36.8 % 30.8-5 8.5 Not Available [facility] ([facility]) [address] [place], [address], 12/14/2024 12:05:47 12/11/1912/12/2024 GLOM FILT RATE, ESTIM ATED creatinine 1.00 mg/dL 0.76-1 .27 normal Not Available [facility] ([facility]) [address] [place], [address], 12/14/2024 12:05:47 12/11/1912/12/2024 GLOM FILT RATE, ESTIM ATED eGFR 109 mL/mi n/1.7 3 >59 normal Not Available [facility] ([facility]) [address] [facility] [place], [address], 12/14/2024 12:05:47 12/11/1912/12/2024 RPR, RFX QN RPR/C ONFIR M TP RPR Non Reacti ve non reacti ve Not Available [facility] ([facility]) [address] [facility] [place], [address], 12/14/2024 12:05:48 12/11/1912/12/2024 AST (SGOT ) AST (SGOT) 75 IU/L 0-40 above high normal Not Available [facility] ([facility]) [address] [facility] [place], [address], 12/14/2024 12:05:48 12/11/1912/12/2024 ALT (SGPT ) ALT (SGPT) 141 IU/L 0-44 above high normal Not Available [facility] ([facility]) [address] [facility] [place], [address], 12/14/2024 12:05:48 12/11/1912/12/2024 HBSAG SCREE N HBsAg screen Negati ve negati ve Not Available [facility] ([facility]) [address] [facility] [place], [address], 12/14/2024 12:05:48 12/11/19 25 12/14/2024 URINE CULTU RE,CO MPREH ENSIV E urine culture,comp rehensive Final report Not Available [facility] ([facility]) [address] [facility], [place], [address], 12/14/2024 12:05:49 12/11/19 25 12/14/2024 URINE CULTU RE,CO MPREH ENSIV E result 1 COMMEN T No growt h in 48 hours . Not Available [facility] ([facility]) [address] [facility], [place], [address], 12/14/2024 12:05:49 12/11/19 25 12/11/2024 CHLAM YDIA TRACH OMATI S AND NEISS ERIA GONOR RHOEA E MOLEC ULAR STUDY .note See Note Origi nal Order ing Provi eliot: NANO YOUSIF CONNIE [facility] - [address] [facility], [facility] d, [facility] [place] [address] Not Available [facility] [address] [place] [address], [address], 05/26/2025 14:27:11 12/11/19 25 12/11/2024 CHLAM YDIA TRACH OMATI S AND NEISS ERIA GONOR RHOEA E MOLEC ULAR STUDY neisseria gonorrhoeae PCR Negati ve negati ve This speci men type has not been evalu ated for this metho d. Inter pret resul ts with cauti on. RECTU M Not Available [facility] [address] [place], [address], 05/26/2025 14:27:11 12/11/19 25 12/11/2024 CHLAM YDIA TRACH OMATI S AND NEISS ERIA GONOR RHOEA E MOLEC ULAR STUDY chlamydia trachomatis PCR Negati ve negati ve This speci men type has not been evalu ated for this metho d. Inter pret resul ts with cauti on. RECTU M Not Available [facility] [address] [place] [address], [address], 05/26/2025 14:27:11 12/11/19 25 12/11/2024 CHLAM YDIA TRACH OMATI S AND NEISS ERIA GONOR RHOEA E MOLEC ULAR STUDY .note See Note Origi nal Order ing Provi eliot: NANO Bo MARTAndrea CONNIE [facility] - [address] [facility], [place], [place] [address] Not Available [facility] [address] [place] [address], [address], 05/27/2025 13:03:03 12/11/19 25 12/11/2024 CHLAM YDIA TRACH OMATI S AND NEISS ERIA GONOR RHOEA E MOLEC ULAR STUDY neisseria gonorrhoeae PCR Negati ve negati ve This speci men type has not been evalu ated for this metho d. Inter pret resul ts with cauti on. THROA T Not Available [facility] [address] [place], [address], 05/27/2025 13:03:03 12/11/19 25 12/11/2024 CHLAM YDIA TRACH OMATI S AND NEISS ERIA GONOR RHOEA E MOLEC ULAR STUDY chlamydia trachomatis PCR Negati ve negati ve This speci men type has not been evalu ated for this metho d. Inter pret resul ts with cauti on. THROA T Not Available [facility] [address] [place] [address], [address], 05/27/2025 13:03:03 12/18/19 25 12/18/2024 TADEO FIBRO SURE( R) PLUS methodology: Commen t The rafa cuco teste d are perfo rmed by Fibro Sure- Speci fic metho ds. Not inten ded for use with other diagn ostic consi derat ions. Not Available [facility] ([facility]) [address] [facility], [place], [address], 12/26/2024 14:06:17 12/18/19 25 12/18/2024 TADEO FIBRO SURE( R) PLUS interpretati ons: Commen t Quant itati ve resul ts of 10 bioch emica ls in combi natio n with age and gende r, are rafa zed using a compu tatio nal algor ithm to provi de a quant itati ve surro gate marke r (0.0- 1.0) of liver fibro sis ([place] vir F0-F4 ), hepat ic steat osis [...] fican t NAFLD /MASL D fibro sis ([place] vir F2-F4 ) and 11% had cirrh [...] y of 71%.[ 3] Not Available [facility] ([facility]) [address] [place], [address], 12/26/2024 14:06:17 12/18/1912/18/2024 TADEO FIBRO SURE( R) [...] F4 - Cirrh osis Not Available [facility] ([facility]) [address] [place], [address], 12/26/2024 14:06:17 12/18/1912/18/2024 TADEO FIBRO SURE( R) PLUS steatosis scoring Commen t <=0.4 0 = S0 - No Steat osis (<5%) 0.40 - 0.55 = S1 - Mild Steat osis (but Clini kiki Signi fican t) (5-33 %) >0.55 = S2S3- Moder ate to Sever e Steat osis (Clin icall y Signi fican t) (34-1 00%) Not Available [facility] ([facility]) [address] [place], [address], 12/26/2024 14:06:17 12/18/1912/18/2024 TADEO FIBRO SURE( R) PLUS tadeo scoring Commen t <=0.2 5 = N0 - No TADEO/ MASH 0.25 - 0.50 = N1 - Mild TADEO/ MASH 0.50 - 0.75 = N2 - Moder ate TADEO/ MASH >0.75 = N3 - Sever e TADEO/ MASH Not Available [facility] ([facility]) [address] [place], [address], 12/26/2024 14:06:17 12/18/19 25 12/18/2024 TADEO FIBRO [...] s of fibro sis. Not Available [facility] ([facility]) [address] [facility], [place], [address], 12/26/2024 14:06:17 12/18/19 25 12/18/2024 TADEO FIBRO [...] conta ct custo nany servi ce at [phone]. Refer ences : 1. Vahe kowalski V. [...] 2017; 30:56 9-577 . Not Available [facility] ([facility]) [address] [place], [address], 12/26/2024 14:06:17 12/18/19 25 12/25/2024 TADEO FIBRO SURE( R) PLUS fibrosis score 0.09 0.00-0 .21 Not Available [facility] ([facility]) [address] [place], [address], 12/26/2024 14:06:17 12/18/19 25 12/25/2024 TADEO FIBRO SURE( R) PLUS fibrosis stage Commen t F0 - No fibro sis Not Available [facility] ([facility]) [address] [place], [address], 12/26/2024 14:06:17 12/18/19 25 12/25/2024 TADEO FIBRO SURE( R) PLUS steatosis score 0.32 0.00-0 .40 Not Available [facility] ([facility]) [address] [place], [address], 12/26/2024 14:06:17 12/18/19 25 12/25/2024 TADEO FIBRO SURE( R) PLUS steatosis grade Commen t S0 - No Steat osis (<5%) Not Available [facility] ([facility]) [address] [place], [address], 12/26/2024 14:06:17 12/18/19 25 12/25/2024 TADEO FIBRO SURE( R) PLUS tadeo score 0.00 0.00-0 .25 Not Available [facility] ([facility]) [address] [place], [address], 12/26/2024 14:06:17 12/18/19 25 12/25/2024 TADEO FIBRO SURE( R) PLUS tadeo grade Commen t N0 - No TADEO Not Available [facility] ([facility]) [address] [place], [address], 12/26/2024 14:06:17 12/18/19 25 12/25/2024 TADEO FIBRO SURE( R) PLUS alpha 2-macroglobu ashish, qn 147 mg/dL 110-27 6 Not Available [facility] ([facility]) [address] [place], [address], 12/26/2024 14:06:17 12/18/19 25 12/25/2024 TADEO FIBRO SURE( R) PLUS haptoglobin 90 mg/dL 17-317 Not Available [facility] ([facility]) [address] [place], [address], 12/26/2024 14:06:17 12/18/19 25 12/25/2024 TADEO FIBRO SURE( R) PLUS apolipoprote in A-1 133 mg/dL 101-17 8 Not Available [facility] ([facility]) [address] [place], [address], 12/26/2024 14:06:17 12/18/19 25 12/25/2024 TADEO FIBRO SURE( R) PLUS bilirubin, total 0.6 mg/dL 0.0-1. 2 Not Available [facility] ([facility]) [address] [place], [address], 12/26/2024 14:06:17 12/18/19 25 12/25/2024 TADEO FIBRO SURE( R) PLUS GGT 19 IU/L 0-65 Not Available [facility] ([facility]) [address] [place], [address], 12/26/2024 14:06:17 12/18/19 25 12/25/2024 TADEO FIBRO SURE( R) PLUS ALT (SGPT) p5p 91 IU/L 0-55 above high normal Not Available [facility] ([facility]) [address] [place], [address], 12/26/2024 14:06:17 12/18/19 25 12/25/2024 TADEO FIBRO SURE( R) PLUS AST (SGOT) p5p 36 IU/L 0-40 Not Available [facility] ([facility]) [address] [place], [address], 12/26/2024 14:06:17 12/18/19 25 12/25/2024 TADEO FIBRO SURE( R) PLUS cholesterol, total 272 mg/dL 100-19 9 above high normal Not Available [facility] ([facility]) [address] [place], [address], 12/26/2024 14:06:17 12/18/19 25 12/25/2024 TADEO FIBRO SURE( R) PLUS glucose, serum 93 mg/dL 70-99 Not Available [facility] ([facility]) [address] [place], [address], 12/26/2024 14:06:17 12/18/19 25 12/25/2024 TADEO FIBRO SURE( R) PLUS triglyceride s 73 mg/dL 0-149 Not Available [facility] ([facility]) [address] [place], [address], 12/26/2024 14:06:17 12/18/19 25 12/19/2024 HEPAT IC FUNCT ION PANEL (7) protein, total 7.5 g/dL 6.0-8. 5 normal Not Available [facility] ([facility]) [address] [place], [address], 12/26/2024 14:06:18 12/18/19 25 12/19/2024 HEPAT IC FUNCT ION PANEL (7) albumin 5.0 g/dL 4.3-5. 2 normal Not Available [facility] ([facility]) [address] [facility], [place], [address], 12/26/2024 14:06:18 12/18/19 25 12/19/2024 HEPAT IC FUNCT ION PANEL (7) bilirubin, total 0.6 mg/dL 0.0-1. 2 normal Not Available [facility] ([facility]) [address] [facility], [place], [address], 12/26/2024 14:06:18 12/18/19 25 12/19/2024 HEPAT IC FUNCT ION PANEL (7) bilirubin, direct 0.17 mg/dL 0.00-0 .40 normal Not Available [facility] ([facility]) [address] [place], [address], 12/26/2024 14:06:18 12/18/19 25 12/19/2024 HEPAT IC FUNCT ION PANEL (7) alkaline phosphatase 88 IU/L 44-121 normal Not Available [facility] ([facility]) [address] [facility], [place], [address], 12/26/2024 14:06:18 12/18/19 25 12/19/2024 HEPAT IC FUNCT ION PANEL (7) AST (SGOT) 34 IU/L 0-40 normal Not Available [facility] ([facility]) [address] [facility], [place], [address], 12/26/2024 14:06:18 12/18/19 25 12/19/2024 HEPAT IC FUNCT ION PANEL (7) ALT (SGPT) 72 IU/L 0-44 above high normal Not Available [facility] ([facility]) [address] [place], [address], 12/26/2024 14:06:18 12/18/19 25 12/19/2024 HCV ANTIB MELL hep C virus Ab Non Reacti ve non reacti ve HCV antib mell alone does not diffe renti ate betwe en previ ously resol lgory infec tion and activ e infec tion. Equiv ocal and React gilles HCV antib mell resul ts shoul d be follo wed up with an HCV RNA test to suppo rt the diagn osis of activ e HCV infec tion. Not Available [facility] ([facility]) [address] [facility], [place], [address], 12/26/2024 14:06:19 06/13/2006/13/2025 CHLAM YDIA TRACH OMATI S AND NEISS ERIA GONOR RHOEA E MOLEC ULAR STUDY .note See Note Origi nal Order ing Provi eliot: NANO YOUSIF CONNIE [facility] - [address] [facility], [place], [place] [address] Not Available [facility] [address] [place] [address], [address], 06/14/2025 11:00:11 06/13/20 25 06/13/2025 CHLAM YDIA TRACH OMATI S AND NEISS ERIA GONOR RHOEA E MOLEC ULAR STUDY neisseria gonorrhoeae PCR Negati ve negati ve Not Available [facility] [address] [place] [address], [address], 06/14/2025 11:00:11 06/13/20 25 06/13/2025 CHLAM YDIA TRACH OMATI S AND NEISS ERIA GONOR RHOEA E MOLEC ULAR STUDY chlamydia trachomatis PCR Negati ve negati ve Not Available [facility] [address] [place] [address], [address], 06/14/2025 11:00:11 06/13/20 25 06/13/2025 CHLAM YDIA TRACH OMATI S AND NEISS ERIA GONOR RHOEA E MOLEC ULAR STUDY .note See Note Origi nal Order ing Provi eliot: NANO WALKER Betzy YOUSIF CONNIE [facility]ory - [address] [facility], [place], [place] [address] Not Available [facility] [address] [place] [address], [address], 06/14/2025 11:00:12 06/13/20 25 06/13/2025 CHLAM YDIA TRACH OMATI S AND NEISS ERIA GONOR RHOEA E MOLEC ULAR STUDY neisseria gonorrhoeae PCR Negati ve negati ve Not Available [facility] [address] [place], [address], 06/14/2025 11:00:12 06/13/20 25 06/13/2025 CHLAM YDIA TRACH OMATI S AND NEISS ERIA GONOR RHOEA E MOLEC ULAR STUDY chlamydia trachomatis PCR Negati ve negati ve Not Available [facility] [address] [place], [address], 06/14/2025 11:00:12 06/13/20 25 06/13/2025 SARS- COV2- RNA, RSV, FLU A AND B QUALI TATIV E RT-PC R .note See Note Origi nal Order ing Provi eliot: NANO Bo MARTO CONNIE [facility] - [address] [place] [address], [place], [place] [address] Not Available [facility] [address] [place] [address], [address], 06/14/2025 14:21:27 06/13/2006/13/2025 SARS- COV2- RNA, RSV, FLU A AND B QUALI TATIV E RT-PC R sars cov-2 Not Detect ed not detect ed Discl aimer : The paula r in which this infor matanusha n is used to guide patie nt care is the respo [facility]ibi [facility]ity [facility]. Testi ng was perfo [...] Provi ders can be found at: https ://[employer] .gov/ media /2532 78/do wnloa d Fact sheet for Patie nts can be found at: https ://[employer] .gov/ media /1372 81/do wnloa d Not Available [facility] [address] [place], [address], 06/14/2025 14:21:27 06/13/20 25 06/13/2025 SARS- COV2- RNA, RSV, FLU A AND B QUALI TATIV E RT-PC R influenza A PCR Not Detect ed not detect ed Not Available [facility] [address] [place] [address], [address], 06/14/2025 14:21:27 06/13/20 25 06/13/2025 SARS- COV2- RNA, RSV, FLU A AND B QUALI TATIV E RT-PC R influenza B PCR Not Detect ed not detect ed Not Available [facility] [address] [place], [address], 06/14/2025 14:21:27 06/13/20 25 06/13/2025 SARS- COV2- RNA, RSV, FLU A AND B QUALI TATIV E RT-PC R RSV PCR Not Detect ed not detect ed Not Available [facility] [address] [place] [address], [address], 06/14/2025 14:21:27 06/13/20 25 06/13/2025 CHLAM YELISAA MYNOR BARBERATI S AND NEISS CARIDADIA KEN CARMONA STUDY .note See Note Origi nal Order ing Provi eliot: NANO YOUSIF CONNIE [facility] - [address] [facility], [place], [place] [address] Not Available [facility] [address] [place] [address], [address], 06/14/2025 15:10:29 06/13/20 25 06/13/2025 CHLAM YDIA TRACH OMATI S AND NEISS ERIA GONOR RHOEA E MOLEC ULAR STUDY neisseria gonorrhoeae PCR Negati ve negati ve Not Available [facility] [address] [place], [address], 06/14/2025 15:10:29 06/13/20 25 06/13/2025 CHLAM YDIA TRACH OMATI S AND NEISS ERIA GONOR RHOEA E MOLEC ULAR STUDY chlamydia trachomatis PCR Negati ve negati ve Not Available [facility] [address] [place], [address], 06/14/2025 15:10:29 01/09/20 25 01/08/2025 US, abdom en No observ ation record ed. [email or web address] Not Available 2024 11:02:03 Result Notes None recorded. 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 Human immunodef iciency virus infection ; snomeddes cription: Human immunodef iciency virus infection ; Report Immunity to Registry: Yes; Human immunodef iciency virus [HIV] disease; snomeddes cription: Human immunodef iciency virus infection ; Report Immunity to Registry: Yes; Not Available [facility] 4 06:58:47 Genital herpes simplex 52253366 Active 2020 Genital herpes simplex; snomeddes cription: Genital herpes simplex; Report Immunity to Registry: Yes; Notes: HSV 2 positive serology 11/2020; Not Available [facility] 4 06:58:47 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 l herpesvir al infection , unspecifi ed; snomeddes cription: Genital herpes simplex; Report Immunity to Registry: Yes; Notes: HSV 2 positive serology 11/2020; Not Available [facility] 4 06:58:47 Gonorrhea of rectum 17244181 Active 2021 Gonorrhea of rectum; snomeddes cription: Gonorrhea of rectum; Report Immunity to Registry: Yes; Notes: s/p ceftraixo ne 11/2021 rectal and oral; Not Available [facility] 4 06:58:47 Infection of anus and rectum caused by Neisseria gonorrhoe ae [id number] 99191 Active 2021 Gonococca l infection of anus and rectum; snomeddes cription: Gonorrhea of rectum; Report Immunity to Registry: Yes; Notes: s/p ceftraixo ne 11/2021 rectal and oral; Not Available [facility] 4 06:58:48 Fibromyal leroy 886091785 Active 2022 Fibromyal leroy; snomeddes cription: Fibromyal leroy; Report Immunity to Registry: Yes; Fibromya lgia; snomeddes cription: Fibromyal leroy; Report Immunity to Registry: Yes; Not Available [facility] 4 06:58:47 Problem Notes None [...] /min 12 /min 98.3 [degF] 25.7 kg/m2 69848.0 7 g 130/80 mm[Hg] Melissa ROBLES MD [facility] 5 10:50:15 Date Recorded Body height Provider Name an d Address Organization Details Last Updated DateTime 06/13/2025 175.26 cm Yadira ROBLES MD [facility] 06/13/2025 15:01:26 Date Recorded Body height Heart rate Respiratory rate Body temperature Body mass index (BMI) Body weight Oxygen saturation Systolic And Diastolic Provider Name and Address Organization Details Last Updated DateTime 4 175.26 cm 96 /min 10 /min 98.6 [degF] 25.4 kg/m2 22810.8 9 g 97 % 116/80 mm[Hg] Yadira ROBLES MD [facility] 4 14:44:24 Date Recorded Body height Respiratory rate Body temperature Body mass index (BMI) Body weight Systolic And Diastolic Provider Name and Address Organization Details Last Updated DateTime 4 175.26 cm 10 /min 99.7 [degF] 25.4 kg/m2 73124.8 9 g 100/78 mm[Hg] Yadira ROBLES MD [facility] 4 14:10:26 Social History None recorded. Functional Status None recorded. Mental Status None recorded. Family History Nothing Reported. Medical History No medical history recorded. Past Encounters Encounter ID Performer Location Encounter Start Date Encounter Closed Date Diagnosis/Indication Diagnosis SNOMED-CT Code Diagnosis ICD10 Code Diagnosis IMO Codes Diagnosis Note [id number] Joseph Robles MD Main Office [address] [place] [address], [place] [address] 09/29/2023 15:16:29 09/29/2023 16:17:23 Human immunodeficiency virus infection 90640056 B20 HIV.Contin ue Biktarvy 1 tab po [...] addressed [id number] Joseph Robles MD Main Office [address] [place] [address] 12/29/2023 13:36:03 12/29/2023 15:28:05 Human immunodeficiency virus infection 04478589 B20 HIV.Contin ue Biktarvy 1 tab po qd.labspt aware of PreP availabili ty. U=U. condom use to prevent STI's.Plan of care reviewed. Questions and concerns addressed Adult heal th examination 526719155 Z00.00 requests the test. Risk of ex posure to communicable disease 396348591 Z20.2 DoxyPeP.pt interested in Doxycyclin e for prevention of bacterial STI's.Inst ructions on correct use reviewed. no more than 2 doses per day.condom use reviewed.p t aware of PreP availabili ty3 site testing GC/chla,yd ia done. [id number] Joseph Robles MD Main Office [address] [place] [address] 03/28/2024 12:55:25 03/28/2024 13:43:36 Human immunodeficiency virus infection 01144920 B20 HIV.Contin ue Biktarvy 1 tab po qd.labspt aware of PreP availabili ty. U=U. condom use to prevent STI's.Plan of care reviewed. Questions and concerns addressed Risk of ex posure to communicable disease 211499065 Z20.2 DoxyPeP.pt interested in Doxycyclin e for prevention of bacterial STI's.Inst ructions on correct use reviewed. no more than 2 doses per day.condom use reviewed.p t aware of PreP availabili ty3 site testing GC/lb trammell ia done. Folliculitis 47591937 L7 3.9 bacterial and viral cultures obtained. scrotummup irocin cream bid x 7 days; Pt has prescripti on at homeawait culture resultsto call if worsening sx. [id number] Joseph Robles MD Main Office [address] [place] [phone] 04/15/2024 14:38:57 04/15/2024 15:01:31 Human immunodeficiency virus infection 58075642 B20 HIV.Contin ue Biktarvy 1 tab po qd.labspt aware of PreP availabili ty. U=U. condom use to prevent STI's.Plan of care reviewed. Questions and concerns addressed Risk of ex posure to communicable disease 402441062 Z20.2 DoxyPeP.pt interested in Doxycyclin e for prevention of bacterial STI's.Inst ructions on correct use reviewed. no more than 2 doses per day.condom use reviewed.p t aware of PreP availabili ty3 site testing MODESTO/lb trammell ia done. Folliculitis 83195420 L7 3.9 Klebsiella s/p Bactrim ds 1 bid x 10 days.ingui nal rash itchi; probably fungal.mark terial and viral cultures obtained. scrotummup irocin cream bid x 7 daysnystat in/triamci nolone bidto call if not imrpoved [id number] Joseph Robles MD Main Office [address] [place] [address] 05/06/2024 15:26:22 05/06/2024 15:48:46 Human immunodeficiency virus infection 96127672 B20 HIV.Contin ue Biktarvy 1 tab po qd.pt aware of PreP availabili ty. U=U. condom use to prevent STI's.Plan of care reviewed. Questions and concerns addressed Risk of ex posure to communicable disease 181000107 Z20.2 DoxyPeP.on Doxycyclin e PRN for prevention of bacterial STI's.Inst ructions on correct use reviewed. no more than 2 doses per day.condom use reviewed. Pruritic rash 83226889 L 28.2 pt has appointmen mt with Dermatolog y on Jun: Dr Tariq.has tried bactrim for klebsiella , DOxycyclin e, mupirocin, antifungal cream and powder, and steroid cream with minimal results.F/ U culture swab negative for bacteria/f ungal/oral antifungal qd. he feels powder helped the best but no reoslution , so will try oral.hydro xyzine qd. watch for sedation. [id number] Joseph Robles MD Main Office [address] [place] [address] 07/19/2024 14:35:56 07/19/2024 15:16:54 Human immunodeficiency virus infection 82444772 B20 HIV.Contin ue Biktarvy 1 tab po qd.pt aware of PreP availabili ty. U=U. condom use to prevent STI's.Plan of care reviewed. Questions and concerns addressed Risk of ex posure to communicable disease 619989545 Z20.2 DoxyPeP.on Doxycyclin e PRN for prevention of bacterial STI's.Inst ructions on correct use reviewed. no more than 2 doses per day.condom use reviewed. Fibromyalgia 626304378 M 79.7 neuropathy will go to pelvic pain clinic [place] [facility] [place] [id number] Joseph Robles MD Main Office [address] [place] [address] 10/18/2024 13:56:36 10/18/2024 14:21:51 Human immunodeficiency virus infection 54241600 B20 HIV.Contin ue Biktarvy 1 tab po qd.clinica l trial options reviewedpt aware of 2 drug regimensva ccines reviewedde clines 3 site testing todaypt aware of PreP availabili ty. U=U. condom use to prevent STI's.Plan of care reviewed. Questions and concerns addressed Risk of ex posure to communicable disease 568085731 Z20.2 DoxyPeP.on Doxycyclin e PRN for prevention of bacterial STI's.Inst ructions on correct use reviewed. no more than 2 doses per day.condom use reviewed. Intertrigo 18349961 L30. 4 culture obtained: scrotal area.hydra tion/skin moisturize r Conjunctivitis 8408840 H 10.9 culture obtained.t o tx if positive infection [id number] Joseph Robles MD Main Office [address] [place] [address] 12/11/2024 10:39:36 12/11/2024 13:13:17 Dysuria 28941051 R30.0 u/a and u/cSTI Panel.will tx based on results.to ER If worsening; to call if worsening. Human immunodeficiency virus infection 09249084 B20 HIV.Contin ue Biktarvy 1 tab po qd.clinica l trial options reviewedpt aware of 2 drug regimensva ccines reviewedde clines 3 site testing todaypt aware of PreP availabili ty. U=U. condom use to prevent STI's.Plan of care reviewed. Questions and concerns addressed Risk of ex posure to communicable disease 327840552 Z20.2 DoxyPeP.on Doxycyclin e PRN for prevention of bacterial STI's.Inst ructions on correct use reviewed. no more than 2 doses per day.condom use reviewed. Onychomyco sis of toenails 639444229 B35.1 Augmentin x 14 days.no allergiesc orrect use reviewedpo tetnial side effects [id number] Joseph Robles MD Main Office [address] [place] [address] 06/13/2025 14:47:04 06/13/2025 15:44:08 Human immunodeficiency virus infection 20159348 B20 HIV.Contin ue Biktarvy 1 tab po qd.labspt aware of PreP availabili ty. U=U. condom use to prevent STI's.Plan of care reviewed. Questions and concerns addressed Risk of ex posure to communicable disease 179194702 Z20.2 DoxyPeP.on Doxycyclin e PRN for prevention of bacterial STI's.Inst ructions on correct use reviewed. no more than 2 doses per day.condom use reviewed. Upper resp iratory infection 64822822 J06.9 [id number] sx improvedvi ral panel sample obtainedca ll [...] Shelton Member ID Guarantor Name 06/13/2025 1 [place] [facility] [id number] Mic Inman [id number] Capser Kelley Viralberkleymaximusmiller 06/13/2025 2 [place] [facility] Casper Inman [id number] Casper Inman Notes Date Note Type Note [...] wnl; HCV ab neg; GC/chlamydia03/2023 HIV VLnondetected; UQ1=157; no syphilis; HBV neg; HCV neg; eGFR>90;AST 46; ALT 1198/2021 HIV VL Nondetected; CD4= 1112; no syphilis; [...] come in due transportation. Joseph Robles MD [address] [place] [address], [phone], CHARLES ROBLES MD [facility] 05/06/2024 17:07:34 4 text/html ROS as noted in the HPI HIVon Biktravy 1 tab po qd.taking dailycompliantdenies missing doses.sexually active. no STI sx;labs reviewed.no new meds03/13/2024 HIV VL nondetected; CD4 990-1000; ALT/AST wnl; eGFR>100; neg quantiferon; no syphilisgenital scrotal culture negative; no HCV; no HBV09/2023 HIV VL nondetected; AST/ALT wnl; HCV ab neg; GC/chlamydia03/2023 HIV VLnondetected; KU6=132; no syphilis; HBV neg; HCV neg; eGFR>90;AST 46; ALT 1198 HIV VL Nondetected; CD4= 1112; no syphilis; HBV and HCV neg; neg GC/chlamydia; no DM. TSHno worsening. no new sx. no genital discharge.GC/chlamydia neg pregabalin. neuropathyMRI lumbar spine next week.has seen PMR and PCP. PMR did not offer pain management solutions.will be evaluated at pelvic clinic in [place] for chronic Pelvic pain.dupixent injection by dermatology: biopsy eczema Joseph Robles MD [address] [place] [address], [phone], CHARLES ROBLES MD [facility] 07/21/2024 20:10:20 4 text/html ROS as noted in the [facility] HIVon Biktravy 1 tab po qd.taking dailycomplianttolerates [...] Pelvic Clinic. Deshawn Andrews see Neurologist in [place] as well.ketamine clinic.will be seen by pain psychologist Joseph Robles MD [address] [place] [address], [phone], CHARLES ROBLES MD [facility] 10/18/2024 21:45:04 5 text/html ROS as noted [...] Pelvic Clinic. Deshawn Andrews see Neurologist in [place] as well.seen or will be seen at [...] cutting. swollen and red Joseph Robles MD [address] [place] [address], [phone], CHARLES ROBLES MD [facility] 12/21/2024 18:33:32 5 text/html ROS as noted in the HPI HIVon Biktravy 1 tab po qd.taking dailycomplianttolerates tx welldenies missing doses.labs reviewed.no new medsdupixent injection by dermatology for eczema (on biopsy) per his report.pelvic pain specialist seen at the Pelvic Clinic. Deshawn Neuropathy feels good.no rash. no discharge. no STI sx. has DOXYPEP prescription [facility] has used as neededsexually active; willing to get GC/chlamydia swabswants to get tested for COVID19; was sick about 2 weeks ago; sx imporved, but still feels tired. currently no cough, no fever, no SOB. nail infection resolved. 11/2024 and 12/2024 HCV neg; AST/ALt wnl; VT0=581; HIV Vl nondetceted; HBV s ag neg; urine culture neg ; wound culture neg; eGFR>6008/2024 HIV VL nondetected; CD 4 1206 AST/ALT wnl; RPR 1:1 treponemal abd NR; HCV neg; e GFR 104;03/13/2024 HIV VL nondetected; CD4 990-1000; ALT/AST wnl; eGFR>100; neg quantiferon; no syphilis Joseph Robles MD [address] [place] [address], [phone], CHARLES - JOSEPH ROBLES MD [facility] 06/16/2025 17:24:26
--- OUTSIDE RECORDS SUMMARY | 2025-10-07 12:26 | XMS_ITS | Encounter Summary ---
Author Organization [facility] Address [address] [place] [address] Care Team Providers Care Irb Compliance Coordinator Name Role Phone Dominik Moses MD Primary Care Provider Encounter Details Date Type Department Care Team (Late st Contact Info) Description 10/18/2024 Lab Requisition [facility] - Main Lab [address] [place] [address] Gissel Vasquez MD [address] [place] [address] Unspecified conjunctivitis Social History Tobacco Use Types [...] No pathogens isolated. 10/21/2024 10:51 AM EST [facility] Gram Stain Result No polymorphonuclear leukocytes, No epithelial cells, and No organisms noted 10/21/2024 10:51 AM EST [facility] Swab 10/18/2024 10/18/2024 8:0 7 PM EST us Gissel Vasquez MD LAB MICROBIOLOGY - GENERA L ORDERABLES Final Result [facility] [address] [place] [address], documented in this encounter Visit Diagnoses Diagnosis Unspecified conjunctivitis documented in this encounter Additional Health Concerns Infection Onset Date Last Indicated Resolved Time Respiratory Rule-Out 06/13/2025 06/13/2025 025 2:20 PM EDT documented as of this encounter Care Teams Irb Compliance Coordinator Relationship Specialty Start Date End Date Dominik Moses MD [address] [facility] [address] [place], [place] PCP - General Pediatrics 08/27/21 documented as of this encounter
--- OUTSIDE RECORDS SUMMARY | 2025-10-07 12:26 | XMS_ITS | Encounter Summary ---
Author Organization [facility] Address [address] [place] [address] Care Team Providers Care Senior Research Project Manager Name Role Phone Dominik Moses MD Primary Care Provider [phone] Encounter Details Date Type Department Care Team (Latest Contact Info) Description 12/11/2024 Lab Requisition [facility] - Main Lab [address] [place] [address] Gissel Vasquez MD [address] [place] [address] Contact with and (suspected) exposure to infections [...] Human immunodeficiency virus (HIV) disease ([facility]) URINALYSIS WITH REFLEX MICROSCOPIC Routine 12/11/2024 12:00 AM EST Contact with and (suspected) exposure to infections with a predominantly sexual mode of transmission Human immunodeficiency virus (HIV) disease ([facility]) CHLAMYDIA TRACHOMATIS AND NEISSERIA GONORRHOEAE PCR Routine 12/11/2024 12:00 AM EST Contact with and (suspected) exposure to infections with a predominantly sexual mode of transmission Human immunodeficiency virus (HIV) disease ([facility]) CHLAMYDIA TRACHOMATIS AND NEISSERIA GONORRHOEAE PCR Routine 12/11/2024 12:00 AM EST Contact with and (suspected) exposure to infections with a predominantly sexual mode of transmission Human immunodeficiency virus (HIV) disease ([facility]) CHLAMYDIA TRACHOMATIS AND NEISSERIA GONORRHOEAE PCR Routine 12/11/2024 12:00 AM EST Contact with and (suspected) exposure to infections with a predominantly sexual mode of transmission Human immunodeficiency virus (HIV) disease ([facility]) CULTURE WOUND DEEP Routine 12/11/2024 12 :00 AM EST Contact with and (suspected) exposure to infections with a predominantly sexual mode of transmission Human immunodeficiency virus (HIV) disease ([facility]) documented in this encounter Results * (ABNORMAL) Urinalysis with reflex microscopic (12/11/2024 12:00 AM EST) Specific [place] Urine 1.026 1.003 - 1.030 LAB URINALYSIS - AUTOMATED METHOD 12/11/2024 7:[address] [facility] pH, Urine 5.5 5.0 - 8.0 pH LAB URINALYSIS - AUTOMATED METHOD 12/11/2024 7:[address] [facility] Leukocytes, Urine Trace(A) Negative LAB URINALYSIS - AUTOMATED METHOD 12/11/2024 7:[address] [facility] Nitrite, Urine Negative Negative LAB URINALYSIS - AUTOMATED METHOD 12/11/2024 7:[address] [facility] Protein, Urine Trace <=Trace mg/dL LAB URINALYSIS - AUTOMATED METHOD 12/11/2024 7:[address] [facility] Glucose, Urine Negative Negative mg/dL LAB URINALYSIS - AUTOMATED METHOD 12/11/2024 7:[address] [facility] Ketones, Urine 15(A) Negative mg/dL LAB URINALYSIS - AUTOMATED METHOD 12/11/2024 7:[address] [facility] Urobilinogen, Urine 1.0 0.2 - 1.0 mg/dL LAB URINALYSIS - AUTOMATED METHOD 12/11/2024 7:[address] [facility] Bilirubin, Urine Negative Negative LAB URINALYSIS - AUTOMATED METHOD 12/11/2024 7:[address] [facility] Blood, Urine Negative Negative LAB URINALYSIS - AUTOMATED METHOD 12/11/2024 7:[address] [facility] RBC, Urine 4.7(H) 0 - 4 /HPF LAB URINALYSIS - AUTOMATED METHOD 12/11/2024 7:[address] [facility] WBC, Urine 0.0 0 - 4 /HPF LAB URINALYSIS - AUTOMATED METHOD 12/11/2024 7:[address] [facility] Squamous Epithelial, Urine 3 0 - 60 /LPF LAB URINALYSIS - AUTOMATED METHOD 12/11/2024 7:[address] [facility] Bacteria, Urine Negative Negative /HPF LAB URINALYSIS - AUTOMATED METHOD 12/11/2024 7:[address] [facility] Hyaline Casts, Urine 0.0 0 - 3 /LPF LAB URINALYSIS - AUTOMATED METHOD 12/11/2024 7:[address] [facility] Urine Urine specimen obtained by clean catch procedure / Unknown 12/11/2024 12/11/2024 7:25 PM EST us Gissel Vasquez MD LAB URINE ORDERABLES Mohini caraballo Result [facility] [address] [place] [address], [place] [phone] * Chlamydia trachomatis and Neisseria gonorrhoeae molecular study (12/11/2024 12:00 AM EST) Neisseria gonorrhoeae PCR Negative Negative LAB MOLECULAR DIAGNOSTICS METHOD 05/26/2025 1:56 PM EDT [facility] Comment: This specimen type has not been evaluated for this method. Interpret results with caution. RECTUM Chlamydia trachomatis PCR Negative Negative LAB MOLECULAR DIAGNOSTICS METHOD 05/26/2025 1:56 PM EDT [facility] Comment: This specimen type has not been evaluated for this method. Interpret results with caution. RECTUM Swab Rectum structure / Unknown 12/11/2024 12/11/2024 7:25 PM EST us Gissel Vasquez MD LAB MICROBIOLOGY - GENERA L ORDERABLES Edited Result - Final Performing Organization Address [facility]/ZIP Co de Phone Number [facility] [address] [place] [address], * Chlamydia trachomatis and Neisseria gonorrhoeae molecular study (12/11/2024 12:00 AM EST) [facility] Neisseria gonorrhoeae PCR Negative Negative LAB MOLECULAR DIAGNOSTICS METHOD 05/27/2025 12:31 PM EDT [facility] Comment: This specimen type has not been evaluated for this method. Interpret results with caution. THROAT Chlamydia trachomatis PCR Negative Negative LAB MOLECULAR DIAGNOSTICS METHOD 05/27/2025 12:31 PM EDT [facility] Comment: This specimen type has not been evaluated for this method. Interpret results with caution. THROAT Swab Structure of anterior region of neck / Unknown 12/11/2024 12/11/2024 7:25 PM EST us Gissel Vasquez MD LAB MICROBIOLOGY - GENERA L ORDERABLES Edited Result - Final Performing Organization Address [facility]/ZIP Co de Phone Number [facility] [address] [place] [address], * Chlamydia trachomatis and Neisseria gonorrhoeae molecular study (12/11/2024 12:00 AM EST) Neisseria gonorrhoeae PCR Negative Negative LAB MOLECULAR DIAGNOSTICS METHOD 12/12/2024 9:29 AM EST [facility] Chlamydia trachomatis PCR Negative Negative LAB MOLECULAR DIAGNOSTICS METHOD 12/12/2024 9:29 AM EST [facility] Urine Urine specimen from urethra / Unknown 12/11/2024 12/11/2024 7:25 PM EST us Gissel Vasquez MD LAB MICROBIOLOGY - GENERA L ORDERABLES Final Result [facility] [address] [place] [address], * (ABNORMAL) Culture wound deep (12/11/2024 12:00 AM EST) Culture, Wound Few Staphylococcus epidermidis(A) MARYAN 12/15/2024 12:[address] [facility] Comment: The organism value for this result has been updated. These results have been appended to the previously preliminary verified report. Edited result: Previously reported as Gram Positive Cocci on 12/15/2024 at 1224 EST. Culture, Wound Few Staphylococcus epidermidis(A) MARYAN 12/15/2024 12:33 PM EST [facility] Comment: The organism value for this result has been updated. These results have been appended to the previously preliminary verified report. Edited result: Previously reported as Gram Positive Cocci on 12/15/2024 at 1224 EST. Gram Stain Result No polymorphonuclear leukocytes, No epithelial cells, and No organisms noted 12/15/2024 12:[address] [facility] Swab Structure of [...] MICROBIOLOGY - GENERA L ORDERABLES Final Result [facility] [address] [place] [address], documented in this encounter Visit Diagnoses Diagnosis Contact with and (suspected) exposure to infections with a predominantly sexual mode of transmission Human immunodeficiency virus (HIV) disease ([facility] V24, [facility] V28) Human immunodeficiency virus [HIV] disease documented in this encounter Additional Health Concerns Infection Onset Date Last Indicated Resolved Time Respiratory Rule-Out 06/13/2025 06/13/2025 025 2:20 PM EDT documented as of this encounter Care Teams Senior Research Project Manager Relationship Specialty Start Date End Date Dominik Moses MD [address] [facility] [address] [place], [place] PCP - General Pediatrics 08/27/21 documented as of this encounter
--- OUTSIDE RECORDS SUMMARY | 2025-10-07 12:26 | XMS_ITS | Encounter Summary ---
Author Organization [facility] Address [address] [place] [address] Phone Care Team Providers Care Hoop Riveting Machine Operator Helper Name Role Phone Blanco Webster MD Primary Care Provider [phone] Encounter Details Date Type Department Care Team (Late st Contact Info) Description 04/18/2013 Documentation [facility] [address] [place], [place] [id number] Family Medicine, Physician [address] [place] [address] Social History Tobacco Use Types Packs/Day Years [...] on filedocumented in this encounter Care Teams Hoop Riveting Machine Operator Helper Relationship Specialty Start Date End Date Blanco Webster MD [address] [place] [address] [place] [address] PCP - General 03/21/18 documented as of this encounter
--- OUTSIDE RECORDS SUMMARY | 2025-10-07 12:26 | XMS_ITS | Data Portability ---
Author Organization [place] [facility], All[facility] Address [address] [facility] [address] [place] [address] Care Team Providers Care Dough Mixing Machine Operator Name Role Phone ISABEL TRAN Primary Care Provider [phone] ISABEL TRAN Referring Provider [phone] JANES TRAN Primary Care Provider Assessment No [...] Address Organization Details Recorded Time Bilateral tinnitus 80770177992 02 Active 2022 Tinnitus, bilateral ; Note: Date Diagnosed : 04/25/2023 2:02 PM (H93.13) Not Available [facility] 4 03:17:50 Jaw pain 580876421 Active 2022 Jaw pain; Note: Date Diagnosed : 04/25/2023 2:07 PM (R68.84) Not Available [facility] 4 03:17:49 Hypertrop hy of tonsils 52522407 Active 2023 Hypertrop hy of tonsils; Note: Date Diagnosed : 12/11/2023 1:00 PM (J35.1) Not Available [facility] 4 03:17:50 Bleeding from nose 704736747 Active 2023 Epistaxis ; Note: Date Diagnosed : 12/21/2023 1:51 PM (R04.0) Not Available [facility] 4 03:17:49 Chronic disease of tonsils AND/OR adenoids 40359196 Active 2023 Calculus, tonsil; Note: Date Diagnosed : 12/21/2023 1:50 PM (J35.8) Not Available [facility] 4 03:17:50 Hemoptysi s 68484320 Active 2023 Hemoptysi s; Note: Date Diagnosed : 12/22/2023 3:29 PM (R04.2) Not Available [facility] 4 03:17:50 Chronic tonsillit is 64283071 Active 2023 MARCOS SABA MD [address] [place] [address], [place], [address] , [facility] - [facility] 4 11:34:25 Problem Notes None recorded. Medical [...] capsule,d elayed release active Medicati on ID: [id number] B rand Name: duloxeti ne Send Method: [...] Updated DateTime 05/17/2024 177.8 cm 25.8 kg/m2 98849.63 g Kasey Farrell [place] - [facility] 05/17/2024 13:41:31 Social History None recorded. Functional Status None recorded. Mental Status None recorded. Family History Nothing Reported. Medical History Condition Response Migraines Y Immune System Disorder Y Past Encounters Encounter ID Performer Location Encounter Start Date Encounter Closed Date Diagnosis/Indication Diagnosis SNOMED-CT Code Diagnosis ICD10 Code Diagnosis IMO Codes Diagnosis Note [id number] MARCOS SABA MD [facility] [address] [address] 05/17/2024 13:34:24 05/20/2024 17:12:20 Chronic tonsillitis 78273276 J35.01 23-year-ol d male presents today for [...] ID Guarantor Name 05/24/2024 1 [place] [facility] (O) [id number] Casper Inman [id number] Casper Inman 05/14/2024 2 [place] Casper Inman [id number] Casper Inman Notes Date Note Type Note [...] bleeding in several weeks. MARCOS SABA MD [address] [place] [address], [phone], [facility] - [facility] 05/18/2024 11:39:09
--- OUTSIDE RECORDS SUMMARY | 2025-10-07 12:26 | XMS_ITS | Clinical Summary ---
Author Organization [address] [facility] Address [address] [place] [address] Phone Care Team Providers Care Assistant Portfolio Manager Name Role Phone Dominik Moses MD Primary Care Provider [phone] Medical History Medical History Date Comments Myopia [...] patient's age to complete this topic Insurance [facility] [place]ICAID - [place] Care Teams Assistant Portfolio Manager Relationship Specialty Start Date End Date Dominik Moses MD [address] [facility] [address] [place], [place] PCP - General Pediatrics 08/27/21
--- OUTSIDE RECORDS SUMMARY | 2025-10-07 12:26 | XMS_ITS | Encounter Summary ---
Author Organization [facility] Address [address] [place] [address] Care Team Providers Care Gaming Commissioner Name Role Phone Dominik Moses MD Primary Care Provider [phone] Encounter Details Date Type Department Care Team (Late st Contact Info) Description 06/13/2025 Lab Requisition [facility] - Main Lab [address] [place] [address] Gissel Vasquez MD [address] [place] [address] Encounter for gynecological examination (general) (routine) without [...] Procedure Name Priority Date/Time Associated Diagnosis Comments [id number], RSV, FLU A AND B QUALITATIVE RT-PCR, [...] diseases documented in this encounter Results * [id number], RSV, Influenza A and B qualitative RT-PCR (06/13/2025 3:35 PM EDT) [facility] SARS COV-2 Not Detected Not Detected LAB MOLECULAR DIAGNOSTICS METHOD 06/14/2025 2:20 PM EDT [facility] Comment: Disclaimer: The manner in which this information is used to guide patient care is the responsibility of the healthcare provider. Testing was performed using the sli.do Alinity m SARS-CoV-2 test. This test has [...] for Healthcare Providers can be found at: https://www.fda.gov/media/495924/download Fact sheet for Patients can be found at: https://www.fda.gov/media/773500/download Influenza A PCR Not Detected Not Detected LAB MOLECULAR DIAGNOSTICS METHOD 06/14/2025 2:20 PM EDT [facility] Influenza B PCR Not Detected Not Detected LAB MOLECULAR DIAGNOSTICS METHOD 06/14/2025 2:20 PM EDT [facility] RSV PCR Not Detected Not Detected LAB MOLECULAR DIAGNOSTICS METHOD 06/14/2025 2:20 PM EDT [facility] Swab Nasopharyngeal structure / Unknown 06/13/2025 3:35 PM EDT 06/13/2025 6:58 PM EDT us Gissel Vasquez MD LAB MICROBIOLOGY - GENERA L ORDERABLES Final Result Performing Organization Address City/[facility]/ZIP Co de Phone Number [facility] [address] [place] [address], [place] [phone] * Chlamydia trachomatis and Neisseria gonorrhoeae molecular study (06/13/2025 3:35 PM EDT) Neisseria gonorrhoeae PCR Negative Negative LAB MOLECULAR DIAGNOSTICS METHOD 06/14/2025 3:09 PM EDT [facility] Chlamydia trachomatis PCR Negative Negative LAB MOLECULAR DIAGNOSTICS METHOD 06/14/2025 3:09 PM EDT [facility] Urine Urine specimen from urethra / Unknown 06/13/2025 3:35 PM EDT 06/13/2025 6:58 PM EDT us Gissel Vasquez MD LAB MICROBIOLOGY - GENERA L ORDERABLES Final Result Performing Organization Address City/[facility]/ZIP Co de Phone Number [facility] [address] [place] [address], [place] [phone] * Chlamydia trachomatis and Neisseria gonorrhoeae molecular study (06/13/2025 3:35 PM EDT) Neisseria gonorrhoeae PCR Negative Negative LAB MOLECULAR DIAGNOSTICS METHOD 06/14/2025 10:59 AM EDT [facility] Chlamydia trachomatis PCR Negative Negative LAB MOLECULAR DIAGNOSTICS METHOD 06/14/2025 10:59 AM EDT [facility] Swab Topography unknown / Unknown 06/13/2025 3:35 PM EDT 06/13/2025 6:58 PM EDT Gissel Vasquez MD LAB MICROBIOLOGY - GENERA L ORDERABLES Final Result Performing Organization Address City/[facility]/ZIP Co de Phone Number [facility] [address] [place] [address], [place] [phone] * Chlamydia trachomatis and Neisseria gonorrhoeae molecular study (06/13/2025 3:35 PM EDT) Neisseria gonorrhoeae PCR Negative Negative LAB MOLECULAR DIAGNOSTICS METHOD 06/14/2025 10:59 AM EDT [facility] Chlamydia trachomatis PCR Negative Negative LAB MOLECULAR DIAGNOSTICS METHOD 06/14/2025 10:59 AM EDT [facility] Swab Rectum structure / Unknown 06/13/2025 3:35 PM EDT 06/13/2025 6:58 PM EDT Gissel Vasquez MD LAB MICROBIOLOGY - GENERA L ORDERABLES Final Result Performing Organization Address [facility] Co de Phone Number [facility] [address] [place] [address], [place] [phone] documented in this encounter Visit Diagnoses Diagnosis Encounter for gynecological examination (general) (routine) without abnormal findings Contact with and (suspected) exposure to other viral communicable diseases documented in this encounter Additional Health Concerns Infection Onset Date Last Indicated Resolved Time Respiratory Rule-Out 06/13/2025 06/13/2025 025 2:20 PM EDT documented as of this encounter Care Teams Gaming Commissioner Relationship Specialty Start Date End Date Dominik Moses MD [address] [facility] [address] [place], [place] PCP - General Pediatrics 08/27/21 documented as of this encounter
== END 2025-10-07 11:22 | disposition home or self-care (01) ==
LOC: HO.HOP 10:12
PROVIDERS: Visit Provider Counselor Mental Health
DX: F41.1 Generalized anxiety disorder (principal); F33.1 Major depressive disorder, recurrent, moderate; F43.9 Reaction to severe stress, unspecified
CPT/HCPCS: 90834

== ENCOUNTER 2025-10-14 12:18 | Outpatient (AMB) | payer BC, MEDICAID, SELFPAY ==
--- NOTE | 2025-10-14 12:10 | MHC.WMTHER ---
Intake Intake Visit Reasons: VIDEO OP Therapy Allergies ciclopirox Allergy (Intermediate, Verified 10/27/24 10:56) Rash gluten Adverse Reaction (Mild, Verified 10/27/24 16:52) Itching lactose Adverse Reaction (Mild, Verified 10/27/24 16:52) Itching PFSH Medical History Chronic pelvic pain in male Cyst of epididymis Testicular pain, left Scrotal pain Trauma and stressor-related disorder Major depressive disorder, recurrent episode Generalized anxiety disorder HIV (human immunodeficiency virus infection) Social History Comment: Alcohol occasional Substance Use Type: Marijuana Sexual orientation: Lesbian/Saenz/Homosexual Gender identity: Male Behavioral Health Assessment Weight Management Therapy Therapy Notes Details Subjective: The patient reports having an enjoyable Thanksgiving. He has been feeling tired due to illness but describes his mood as ?kind of good,? though he is experiencing some stress. Pain levels have been manageable over the past few days. He notes significant progress in reducing cannabis use, now using only 1?3 times per week. Objective: The patient attended a follow-up visit via telehealth. During the session, CBT-based interventions were utilized to address stress and support ongoing cannabis reduction. Cognitive restructuring techniques were introduced to help the patient identify and challenge stress-inducing thoughts, and relaxation strategies (such as guided breathing) were practiced to manage both stress and physical discomfort. The patient was encouraged to monitor triggers for cannabis use and to develop alternative coping strategies, including activity scheduling and problem-solving for situations that increase stress or pain. Psychoeducation was provided regarding the impact of illness and fatigue on mood and substance use, and the patient was supported in setting realistic, short-term goals for continued symptom management and further reduction in cannabis use. Engagement was good, and the patient demonstrated insight and motivation to continue progress. Assessment/Response: Mental status: Alert and oriented. Appearance appropriate. Mood ?kind of good,? affect congruent. Thought process logical and coherent. No evidence of psychosis. Insight and judgment intact. Risk reported/identified: None Assessment & Plan Assessment & Plan (1) Generalized anxiety disorder: Code(s): F41.1 - Generalized anxiety disorder (2) Major depressive disorder, recurrent episode: Code(s): F33.9 - Major depressive disorder, recurrent, unspecified Qualifiers: Major depression episode severity: moderate Qualified Code(s): F33.1 - Major depressive disorder, recurrent, moderate (3) Trauma and stressor-related disorder: Code(s): F43.9 - Reaction to severe stress, unspecified Plan Reviewed and updated the patient?s coping plan and safety plan during the session. Provider will be out of the office for 3 weeks in October; therefore, the next appointment is scheduled in 1 month. Patient encouraged to utilize identified coping strategies and support resources as needed until the next visit. ?Next appointment scheduled for 11/18/2025 at 10am via telehealth. Telehealth Telehealth Telehealth Platform: [employer] Location of provider rendering services: other (Home office. [place], [place]) Location of patient: address on file Patient Identification confirmed using: Name, : Yes Telehealth method: video Patient verbally consented to treatment: Yes Patient verbally consented to billing insurance company: Yes Patient informed of any privacy concerns related to visit: Yes Minutes spent on Phone/Video with Pt.: 50 [place] [address] Tele Psytx 45 mins Patient Type Established Diagnoses Generalized anxiety disorder F41.1 Moderate episode of recurrent major depressive disorder F33.1 Major depression episode severity: moderate Trauma and stressor-related disorder F43.9 Time Spent (min) 50
--- OUTSIDE RECORDS SUMMARY | 2025-10-14 14:21 | XMS_ITS | Encounter Summary ---
Author Organization [facility] Address [address] [place] [address] Phone Care Team Providers Care Chip Mixing Machine Operator Name Role Phone Blanco Webster MD Primary Care Provider [phone] Encounter Details Date Type Department Care Team (Late st Contact Info) Description 04/18/2013 Documentation [facility] Family Medicine [address] [place], [place] [id number] Family Medicine, Physician [address] [place] [address] Social History Tobacco Use Types Packs/Day Years [...] on filedocumented in this encounter Care Teams Chip Mixing Machine Operator Relationship Specialty Start Date End Date Blanco Webster MD [address] [place] [address] [place] [address] PCP - General 03/21/18 documented as of this encounter
--- OUTSIDE RECORDS SUMMARY | 2025-10-14 14:21 | XMS_ITS | Clinical Summary ---
Author Organization [facility] Address [address] [place] [address] Phone Care Team Providers Care Tape Machine Tailer Name Role Phone Jose Guadalupe Vargas MD Primary Care Provider [phone] Jose Guadalupe Vargas MD Unavailable [phone] Social History Tobacco Use Types Packs/Day Years Used Date Smoking Tobacco: Never Assessed Sex and Gender Information Value Date Recorded Sex Assigned at Not on file Legal Sex Male 7:37 PM EDT Gender Identity Not on file Sexual Orientation Not on file Plan of Treatment Not on file Care Teams Tape Machine Tailer Relationship Specialty Start Date End Date Jose Guadalupe Vargas MD [address] [place] [address] PCP - General 10/01/08 Jose Guadalupe Vargas MD [address] [place] [address] PCP - Insurance PCP 10/01/08
--- OUTSIDE RECORDS SUMMARY | 2025-10-14 14:21 | XMS_ITS | Encounter Summary ---
Author Organization [facility] Address [address] [place] [address] Care Team Providers Care Optimization Analyst Name Role Phone Dominik Moses MD Primary Care Provider Encounter Details Date Type Department Care Team (Late st Contact Info) Description 06/13/2025 Lab Requisition [facility] - Main Lab [address] [place] [address] Gissel Vasquez MD [address] [place] [phone] Encounter for gynecological examination (general) (routine) without [...] Procedure Name Priority Date/Time Associated Diagnosis Comments [id number], RSV, FLU A AND B QUALITATIVE RT-PCR, [...] diseases documented in this encounter Results * [id number], RSV, Influenza A and B qualitative RT-PCR (06/13/2025 3:35 PM EDT) [facility] SARS COV-2 Not Detected Not Detected LAB MOLECULAR DIAGNOSTICS METHOD 06/14/2025 2:20 PM EDT [facility] Comment: Disclaimer: The manner in which this information is used to guide patient care is the responsibility of the healthcare provider. Testing was performed using the [employer] m SARS-CoV-2 test. This test has [...] for Healthcare Providers can be found at: https://www.fda.gov/media/154343/download Fact sheet for Patients can be found at: https://www.fda.gov/media/822763/download Influenza A PCR Not Detected Not Detected [...] L ORDERABLES Final Result Performing Organization Address City/[facility]/ZIP Co de Phone Number [facility] [address] [place] [address], [place] [phone] * Chlamydia trachomatis and Neisseria gonorrhoeae molecular [...] L ORDERABLES Final Result Performing Organization Address City/[facility]/ZIP Co de Phone Number [facility] [address] [place] [address], [place] [phone] * Chlamydia trachomatis and Neisseria gonorrhoeae molecular [...] L ORDERABLES Final Result Performing Organization Address City/[facility]/ZIP Co de Phone Number [facility] [address] [place] [address], [place] [phone] * Chlamydia trachomatis and Neisseria gonorrhoeae molecular [...] L ORDERABLES Final Result Performing Organization Address [facility] Co de Phone Number [facility] [address] [place] [address], [place] [phone] documented in this encounter Visit Diagnoses Diagnosis Encounter for gynecological examination (general) (routine) without abnormal findings Contact with and (suspected) exposure to other viral communicable diseases documented in this encounter Additional Health Concerns Infection Onset Date Last Indicated Resolved Time Respiratory Rule-Out 06/13/2025 06/13/2025 025 2:20 PM EDT documented as of this encounter Care Teams Optimization Analyst Relationship Specialty Start Date End Date Dominik Moses MD [address] [facility] [address] [place], [place] PCP - General Pediatrics 08/27/21 documented as of this encounter
--- OUTSIDE RECORDS SUMMARY | 2025-10-14 14:21 | XMS_ITS | Clinical Summary ---
Author Organization [facility] Address [address] [place] [address] Phone Care Team Providers Care Operator Engineer Name Role Phone Blanco Webster MD Primary [...] age to complete this topic Care Teams Operator Engineer Relationship Specialty Start Date End Date Blanco Webster MD [facility] [facility] [place] [address] PCP - General 03/21/18
--- OUTSIDE RECORDS SUMMARY | 2025-10-14 14:21 | XMS_ITS | Clinical Summary ---
Author Organization [address] [facility] Address [address] [place] [address] Phone Care Team Providers Care Lens Finisher Name Role Phone Dominik Moses MD Primary Care Provider [phone] Medical History Medical History Date Comments Myopia [...] patient's age to complete this topic Insurance [facility] MEDICAID - [place] Care Teams Lens Finisher Relationship Specialty Start Date End Date Dominik Moses MD [address] [facility] [address] [place], [place] PCP - General Pediatrics 08/27/21
--- OUTSIDE RECORDS SUMMARY | 2025-10-14 14:21 | XMS_ITS | Encounter Summary ---
Author Organization [facility] Address [address] [place] [address] Care Team Providers Care Loop Cutter Name Role Phone Dominik Moses MD Primary Care Provider Encounter Details Date Type Department Care Team (Late st Contact Info) Description 10/18/2024 Lab Requisition [facility] - Main Lab [address] [place] [address] Gissel Vasquez MD [address] [place] [phone] Erythema intertrigo Social History Tobacco Use Types [...] significant pathogens noted. 10/21/2024 10:53 AM EST [facility] Swab Urethral structure / Unknown 10/18/2024 10/18/2024 8:11 PM EST us Gissel Vasquez MD LAB MICROBIOLOGY - GENERA L ORDERABLES Final Result [facility] [address] [place] [address], documented in this encounter Visit Diagnoses Diagnosis Erythema intertrigo Other specified erythematous condition documented in this encounter Additional Health Concerns Infection Onset Date Last Indicated Resolved Time Respiratory Rule-Out 06/13/2025 06/13/2025 025 2:20 PM EDT documented as of this encounter Care Teams Loop Cutter Relationship Specialty Start Date End Date Dominik Moses MD [address] [facility] [address] [place], [place] PCP - General Pediatrics 08/27/21 documented as of this encounter
--- OUTSIDE RECORDS SUMMARY | 2025-10-14 14:21 | XMS_ITS | Encounter Summary ---
Author Organization [facility] Address [address] [place] [address] Care Team Providers Care Academic Affairs Manager Name Role Phone Dominik Moses MD Primary Care Provider Encounter Details Date Type Department Care Team (Late st Contact Info) Description 10/18/2024 Lab Requisition [facility] - Main Lab [address] [place] [address] Gissel Vasquez MD [address] [place] [address] Unspecified conjunctivitis Social History Tobacco Use Types [...] pathogens isolated. 10/21/2024 10:51 AM EST [facility] Gram Stain Result No polymorphonuclear leukocytes, No epithelial cells, and No organisms noted 10/21/2024 10:51 AM EST [facility] Swab 10/18/2024 10/18/2024 8:0 7 PM EST us Gissel Vasquez MD LAB MICROBIOLOGY - GENERA L ORDERABLES Final Result [facility] [address] [place] [address], documented in this encounter Visit Diagnoses Diagnosis Unspecified conjunctivitis documented in this encounter Additional Health Concerns Infection Onset Date Last Indicated Resolved Time Respiratory Rule-Out 06/13/2025 06/13/2025 025 2:20 PM EDT documented as of this encounter Care Teams Academic Affairs Manager Relationship Specialty Start Date End Date Dominik Moses MD [address] [facility] [address] [place], [place] PCP - General Pediatrics 08/27/21 documented as of this encounter
--- OUTSIDE RECORDS SUMMARY | 2025-10-14 14:21 | XMS_ITS | Encounter Summary ---
Author Organization [facility] Address [address] [place] [address] Care Team Providers Care Manager Switch Name Role Phone Dominik Moses MD Primary Care Provider Encounter Details Date Type Department Care Team (Latest Contact Info) Description 12/11/2024 Lab Requisition [facility] - Main Lab [address] [place] [address] Gissel Vasquez MD [address] [place] [address] Contact with and (suspected) exposure to infections [...] of transmission Human immunodeficiency virus (HIV) disease ([facility]) URINALYSIS WITH REFLEX MICROSCOPIC Routine 12/11/2024 12:00 AM EST Contact with and (suspected) exposure to infections with a predominantly sexual mode of transmission Human immunodeficiency virus (HIV) disease ([facility]) CHLAMYDIA TRACHOMATIS AND NEISSERIA GONORRHOEAE PCR Routine 12/11/2024 12:00 AM EST Contact with and (suspected) exposure to infections with a predominantly sexual mode of transmission Human immunodeficiency virus (HIV) disease ([facility]) CHLAMYDIA TRACHOMATIS AND NEISSERIA GONORRHOEAE PCR Routine 12/11/2024 12:00 AM EST Contact with and (suspected) exposure to infections with a predominantly sexual mode of transmission Human immunodeficiency virus (HIV) disease ([facility]) CHLAMYDIA TRACHOMATIS AND NEISSERIA GONORRHOEAE PCR Routine 12/11/2024 12:00 AM EST Contact with and (suspected) exposure to infections with a predominantly sexual mode of transmission Human immunodeficiency virus (HIV) disease ([facility]) CULTURE WOUND DEEP Routine 12/11/2024 12 :00 AM EST Contact with and (suspected) exposure to infections with a predominantly sexual mode of transmission Human immunodeficiency virus (HIV) disease ([facility]) documented in this encounter Results * (ABNORMAL) Urinalysis with reflex microscopic (12/11/2024 12:00 AM EST) Specific [place] Urine 1.026 1.003 - 1.030 LAB URINALYSIS - AUTOMATED METHOD 12/11/2024 7:38 PM [facility] pH, Urine 5.5 5.0 - 8.0 pH LAB URINALYSIS - AUTOMATED METHOD 12/11/2024 7:38 PM [facility] Leukocytes, Urine Trace(A) Negative LAB URINALYSIS - AUTOMATED METHOD 12/11/2024 7:38 PM [facility] Nitrite, Urine Negative Negative LAB URINALYSIS - AUTOMATED METHOD 12/11/2024 7:38 PM [facility] Protein, Urine Trace <=Trace mg/dL LAB URINALYSIS - AUTOMATED METHOD 12/11/2024 7:38 PM [facility] Glucose, Urine Negative Negative mg/dL LAB URINALYSIS - AUTOMATED METHOD 12/11/2024 7:38 PM [facility] Ketones, Urine 15(A) Negative mg/dL LAB URINALYSIS - AUTOMATED METHOD 12/11/2024 7:38 PM [facility] Urobilinogen, Urine 1.0 0.2 - 1.0 mg/dL LAB URINALYSIS - AUTOMATED METHOD 12/11/2024 7:38 PM [facility] Bilirubin, Urine Negative Negative LAB URINALYSIS - AUTOMATED METHOD 12/11/2024 7:38 PM [facility] Blood, Urine Negative Negative LAB URINALYSIS - AUTOMATED METHOD 12/11/2024 7:38 PM [facility] RBC, Urine 4.7(H) 0 - 4 /HPF LAB URINALYSIS - AUTOMATED METHOD 12/11/2024 7:38 PM [facility] WBC, Urine 0.0 0 - 4 /HPF LAB URINALYSIS - AUTOMATED METHOD 12/11/2024 7:38 PM [facility] Squamous Epithelial, Urine 3 0 - 60 /LPF LAB URINALYSIS - AUTOMATED METHOD 12/11/2024 7:38 PM [facility] Bacteria, Urine Negative Negative /HPF LAB URINALYSIS - AUTOMATED METHOD 12/11/2024 7:38 PM [facility] Hyaline Casts, Urine 0.0 0 - 3 /LPF LAB URINALYSIS - AUTOMATED METHOD 12/11/2024 7:38 PM [facility] Urine Urine specimen obtained by clean catch procedure / Unknown 12/11/2024 12/11/2024 7:25 PM EST us Gissel Vasquez MD LAB URINE ORDERABLES Mohini caraballo Result [facility] [address] [place] [address], [place] [phone] * Chlamydia trachomatis and Neisseria gonorrhoeae molecular study (12/11/2024 12:00 AM EST) Neisseria gonorrhoeae PCR Negative Negative LAB MOLECULAR DIAGNOSTICS METHOD 05/26/2025 1:56 PM EDT [facility] Comment: This specimen type has not been evaluated for this method. Interpret results with caution. RECTUM Chlamydia trachomatis PCR Negative Negative LAB MOLECULAR DIAGNOSTICS METHOD 05/26/2025 1:56 PM EDT [facility] Comment: This specimen type has not been evaluated for this method. Interpret results with caution. RECTUM Swab Rectum structure / Unknown 12/11/2024 12/11/2024 7:25 PM EST us Gissel Vasquez MD LAB MICROBIOLOGY - GENERA L ORDERABLES Edited Result - Final Performing Organization Address [facility]/ZIP Co de Phone Number [facility] [address] [place] [address], * Chlamydia trachomatis and Neisseria gonorrhoeae molecular study (12/11/2024 12:00 AM EST) [facility] Neisseria gonorrhoeae PCR Negative Negative LAB MOLECULAR DIAGNOSTICS METHOD 05/27/2025 12:31 PM EDT [facility] Comment: This specimen type has not been evaluated for this method. Interpret results with caution. THROAT Chlamydia trachomatis PCR Negative Negative LAB MOLECULAR DIAGNOSTICS METHOD 05/27/2025 12:31 PM EDT [facility] Comment: This specimen type has not been evaluated for this method. Interpret results with caution. THROAT Swab Structure of anterior region of neck / Unknown 12/11/2024 12/11/2024 7:25 PM EST us Gissel Vasquez MD LAB MICROBIOLOGY - GENERA L ORDERABLES Edited Result - Final Performing Organization Address [facility]/ZIP Co de Phone Number [facility] [address] [place] [address], * Chlamydia trachomatis and Neisseria gonorrhoeae molecular study (12/11/2024 12:00 AM EST) Neisseria gonorrhoeae PCR Negative Negative LAB MOLECULAR DIAGNOSTICS METHOD 12/12/2024 9:29 AM EST [facility] Chlamydia trachomatis PCR Negative Negative LAB MOLECULAR DIAGNOSTICS METHOD 12/12/2024 9:29 AM EST [facility] Urine Urine specimen from urethra / Unknown 12/11/2024 12/11/2024 7:25 PM EST us Gissel Vasquez MD LAB MICROBIOLOGY - GENERA L ORDERABLES Final Result [facility] [address] [place] [address], * (ABNORMAL) Culture wound deep (12/11/2024 12:00 AM EST) Culture, Wound Few Staphylococcus epidermidis(A) MARYAN 12/15/2024 12:33 PM [facility] Comment: The organism value for this result has been updated. These results have been appended to the previously preliminary verified report. Edited result: Previously reported as Gram Positive Cocci on 12/15/2024 at 1224 EST. Culture, Wound Few Staphylococcus epidermidis(A) MARYAN 12/15/2024 12:33 PM EST [facility] Comment: The organism value for this result has been updated. These results have been appended to the previously preliminary verified report. Edited result: Previously reported as Gram Positive Cocci on 12/15/2024 at 1224 EST. Gram Stain Result No polymorphonuclear leukocytes, No epithelial cells, and No organisms noted 12/15/2024 12:33 PM [facility] Swab Structure of left [...] GENERA L ORDERABLES Final Result [facility] [address] [place] [address], documented in this encounter Visit Diagnoses Diagnosis Contact with and (suspected) exposure to infections with a predominantly sexual mode of transmission Human immunodeficiency virus (HIV) disease ([facility] V24, [facility] V28) Human immunodeficiency virus [HIV] disease documented in this encounter Additional Health Concerns Infection Onset Date Last Indicated Resolved Time Respiratory Rule-Out 06/13/2025 06/13/2025 025 2:20 PM EDT documented as of this encounter Care Teams Manager Switch Relationship Specialty Start Date End Date Dominik Moses MD [address] [facility] [address] [place], [place] PCP - General Pediatrics 08/27/21 documented as of this encounter
== END 2025-10-14 13:11 | disposition home or self-care (01) ==
LOC: HO.HOP 12:18
PROVIDERS: Visit Provider Counselor Mental Health
DX: F41.1 Generalized anxiety disorder (principal); F33.1 Major depressive disorder, recurrent, moderate; F43.9 Reaction to severe stress, unspecified
CPT/HCPCS: 90834